=== PATIENT | male | born 1950 | race Caucasian/White ===

== ENCOUNTER 2020-09-01 15:12 | Emergency (ER) | payer MEDICARE, SELFPAY ==
--- NOTE | ~2020-09-01 | XR_ITS ---
EXAMINATION: XR wrist RT min 3V INDICATION: Right wrist pain, initial encounter TECHNIQUE: Four views of the right wrist are obtained. COMPARISON: None available FINDINGS: There is medial soft tissue swelling of the wrist. The bones are osteopenic which limits th e sensitivity for fracture however no acute fracture is seen. Tiny areas of heterotopic ossification near the first carpometacarpal joint likely reflect prior injury. Calcified atherosclerosis is noted. IMPRESSION: 1. No acute osseous abnormality, sensitivity limited by osteopenia. Reviewed, dictated and finalized at location A. SER
[2020-09-01 15:26] VITALS: BP 152/60; PULSE 86; RESP 20; TEMP 36.7; O2SAT 99
--- NOTE | 2020-09-01 15:36 | ED.UPPEXIN ---
HPI - Extremity Injury (Upper) General Chief Complaint: Extremity Injury, Upper Stated Complaint: L/knee & R/hand injury Source: patient and RN notes reviewed Limitations: no limitations History of Present Illness HPI narrative: The patient, who is right-handed, presents with right wrist pain that is mild, worse with motion, better at rest. He slipped and fell 1/2 a week ago and still has continued pain eric ulnar > radial aspect. No bleeding, deformity but there is definite edema; he also had a bruise to his left knee which is improved [he's on Eliquis]. Patient advised regardless of x-ray report, need for spica splinting -and he declines available splint here for durable waterproof OTC . Patient has been seen by ortho for past knee replacement, so also advised to see prior ortho or referral. Related Data Home Medications Medication Instructions Recorded Confirmed apixaban [Eliquis] 5 mg BID 09/01/20 09/01/20 atorvastatin 10 DAILY 09/01/20 doxazosin 8 mg 09/01/20 furosemide 20 09/01/20 lisinopril 20 mg 09/01/20 metoprolol tartrate 50 mg BID 09/01/20 09/01/20 tamsulosin 0.4 mg PO BID 09/01/20 09/01/20 Allergies Allergy/AdvReac Type Severity Reaction Status Date / Time No Known Allergies Allergy Verified 02/15/19 11:10 Review of Systems Review of Systems: Narrative: General/Constitutional: No weight loss,fever Eyes: N0: Redness,discharge Ears/Nose/Throat: No: Epistaxis,ear discharge Respiratory: Denies: Hemoptysis Gastrointestinal: No Vomiting, Bleeding-rectal Skin: No Lumps, eruption Neurologic: No Focal Weakness,Sz Hematologic: Denies: Petechiae/Purpura Psychiatric: No: Suicida ideationl All Other Systems: Reviewed and Negative PMFSH Social History Social History Gender identity (if verbalized by the patient): Male Comments At time of signature, agree with nursing past medical, surgical, social and family history. There is no relevant family history pertinent to the presenting complaint Exam Narrative: Exam Narrative: General Appearance: Obese/ Well nourished, Conjunctiva clear Ears: External ear normal, [place] / decreased hearing acuity Nose: Normal nose, Nares clear Mouth/Throat: Normal appearing, Normal lips, Supple Respiratory: Airway patent, No respiratory distress MS-wrist: Normal strength (mostly intact, limited flexion/extension by pain), Tenderness (radial styloid >> scaphoid with mild decreased ROM), Swelling diffusely, Other (no anterior drawer, no collateral laxity, snuffbox tender only on deep palpation Skin: Warm, Dry; resolving bruise of left knee with good strength and range of motion Neurological: A&O x3, , Normal affect Course Course Emergency Course: Films visualized, interpreted by radiologist, agree, normal see report Vital Signs Vital signs: Vital Signs Temperature 98.0 F 09/01/20 15:26 Pulse Rate 86 09/01/20 15:26 Respiratory Rate 20 09/01/20 15:26 Blood Pressure 152/60 H 09/01/20 15:26 Pulse Oximetry 99 09/01/20 15:26 Temperature 98.0 F 09/01/20 15:26 Pulse Rate 86 09/01/20 15:26 Respiratory Rate 20 09/01/20 15:26 Blood Pressure 152/60 H 09/01/20 15:26 Pulse Oximetry 99 09/01/20 15:26 Discharge Plan Discharge Clinical Impression: Injury of wrist, right Patient Disposition: Home, Self-Care Condition: Stable Instructions: Scaphoid Fracture (ED) Additional Instructions: Get and wear splint as discussed See prior knee orthopedist or referral Prescriptions: New acetaminophen-codeine 300-30 mg tablet 1 tablet PO HS PRN (Reason: pain) Qty: 10 RF: 1 acetaminophen-codeine 300-30 mg tablet 1 tablet PO HS PRN (Reason: pain) Qty: 10 RF: 0 No Action tamsulosin 0.4 mg capsule 0.4 mg PO BID RF: 0 Eliquis 5 mg tablet 5 mg BID RF: 0 atorvastatin 10 mg tablet 10 DAILY RF: 0 furosemide 20 mg tablet 20 RF: 0 lisinopril 20 mg tablet 20 mg RF: 0 metoprolol
== END 2020-09-01 16:02 | disposition home or self-care (01) ==
PROVIDERS: Emergency Provider Emergency Medicine; PCP Family Medicine Adolescent Medicine
DX: S69.91XA Unspecified injury of right wrist, hand and finger(s), initial encounter (principal); W19.XXXA Unspecified fall, initial encounter; I25.10 Atherosclerotic heart disease of native coronary artery without angina pectoris; E78.00 Pure hypercholesterolemia, unspecified; I10 Essential (primary) hypertension; N40.0 Benign prostatic hyperplasia without lower urinary tract symptoms; M19.90 Unspecified osteoarthritis, unspecified site; Z95.1 Presence of aortocoronary bypass graft
CPT/HCPCS: 73110; 99213; G0463

== ENCOUNTER 2020-09-07 13:00 | Inpatient (IN) | payer MEDICARE, SELFPAY ==
[2020-09-07] VITALS (13 sets, daily range): BP systolic 139–180; BP diastolic 44–99; PULSE 97–111; RESP 19–37; TEMP 36.7–37.3; O2SAT 95–99; BMI 37.5
--- NOTE | ~2020-09-07 | CT_ITS ---
EXAMINATION: CTA chest PE protocol DATE: 09/11/2020 16:22 INDICATION: Hypoxia. Tachypnea. TECHNIQUE: Computed tomography angiography (CTA) of the chest was performed with 100 mL Omnipaque-350 intravenous contrast timed to evaluate the pulmonary arteries. Coronal maximum intensity projection 3D-reconstructions were created by the technologist. Automated exposure control and iterative reconst ruction technique were employed. The dose-length product was 940.84 mGy-cm. COMPARISON: Chest 2 views 09/11/2020 FINDINGS: There are small pleural effusions. There is mild dependent atelectasis bilaterally. There i s smooth septal thickening in the lungs, consistent with mild pulmonary edema. Cardiomegaly is noted. There are coronary artery calcifications. There are changes of coronary artery bypass grafting. Ther e is no pulmonary embolus. There is mild thoracic spondylosis. IMPRESSION: 1. No pulmonary embolus. Sensitivity is moderately decreased by motion artifact. 2. Mild pulmonary edema. 3. Small pleural effusions. 4. Cardiomegaly. Reviewed, dictated and finalized at location A. OS LEAD IMPRESSION: 1. No pulmonary embolus. Sensitivity is moderately decreased by motion artifact . 2. Mild pulmonary edema. 3. Small pleural effusions. 4. Cardiomegaly.
--- NOTE | ~2020-09-07 | US_ITS ---
US renal BI 09/08/2020 11:10 Procedure: Realtime transabdominal ultrasound of the kidneys and bladder. Indication: Acute on chronic renal failure Comparison: Ultrasound dated 02/20/2019 Findings: Renal echotexture is normal bilaterally without hydronephrosis, contour deforming mass or r enal calculus. The right kidney measures 11.4 cm and left kidney measures 12 cm. There is a Tang cat heter in the bladder. Impression: 1: Unremarkable renal ultrasound. No stones, masses or hydronephrosis. Reviewed, dictated and finalized at location A. S BLOWING INSTRUCTOR Impression: 1: Unremarkable renal ultrasound. No stones, masses or hydronephrosis.
--- NOTE | ~2020-09-07 | XR_ITS ---
EXAMINATION: XR chest 2V DATE: 09/07/2020 14:21 INDICATION: Labored breathing. Tachycardia. Generalized weakness. TECHNIQUE: PA and lateral views of the chest were obtained. COMPARISON: Chest radiograph dated 02/16/2019 FINDINGS: Cardia megaly with pulmonary vascular congestion but without best pulmonary edema. No focal airspace opacities, pleural effusion or pneumothorax. Mild eventration along the right hemidiaphragm. Median sternotomy wires and mediastinal surgical clips are seen, likely from prior coronary artery bypass gr afting. Chronic mild anterior wedging of a couple lower thoracic vertebral bodies. IMPRESSION: 1. Cardiomegaly with pulmonary vascular congestion but without best pulmonary edema or other acute c ardiopulmonary disease. Reviewed, dictated and finalized at location A. ILITY CLAIMS EXAMINER IMPRESSION: 1. Cardiomegaly with pulmonary vascular congestion but without best pulmonary edema or other acute cardiopulmonary disease.
--- NOTE | ~2020-09-07 | XR_ITS ---
XR chest 1V portable 09/12/2020 01:33 Indication: Tachypnea Procedure: AP portable chest Comparison: Comparison to multiple prior studies sequentially, with oldest reviewed study dated 02/16. Findings: Status post median sternotomy for CABG. Cardiomegaly. Mild interstitial edema. No significa nt pleural effusion or pneumothorax. No acute osseous abnormality. Impression: 1: Cardiomegaly with mild interstitial edema. Reviewed, dictated and finalized at location A. POLISHER Impression: 1: Cardiomegaly with mild interstitial edema.
--- NOTE | ~2020-09-07 | US_ITS ---
EXAMINATION: US venous doppler [facility] EXAM DATE: 09/11/2020 15:56 INDICATION: Bilateral calf pain. TECHNIQUE: Multiple grayscale, color flow and Doppler images of the lower extremity deep venous syste ms bilaterally were obtained and reviewed. Comparison is made to prior examination from 02/15/2019. FINDINGS: Right side: The right common femoral, femoral and profunda veins demonstrate normal color flow, respi ratory variation, augmentation and compressibility. Compressibility, color flow confirmed within the right popliteal, posterior tibial, peroneal, and greater saphenous veins. Left side: The left common femoral, femoral and profunda veins demonstrate normal color flow, respira tory variation, augmentation and compressibility. Compressibility, color flow confirmed within the l eft popliteal, posterior tibial, peroneal, and greater saphenous veins. IMPRESSION: 1. No lower extremity deep venous thrombosis bilaterally. Reviewed, dictated and finalized at location A. OF SALES AND MARKETING
--- NOTE | ~2020-09-07 | XR_ITS ---
EXAMINATION: XR wrist RT min 3V DATE: 09/07/2020 14:21 INDICATION: Posterior medial right wrist pain post fall TECHNIQUE: Posteroanterior, ulnar deviation, oblique, and lateral views of the right wrist were obtai drew. COMPARISON: 09/01/2020 FINDINGS: Diffuse osteopenia. Alignment remains normal. No fractures. 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 Mild ch ondrocalcinosis at the triangular fibrocartilage complex. Diffuse soft tissue swelling in the hand an d along the forearm, the latter with ulnar side predominance. Vascular ossifications along the radial and ulnar arteries. Tiny radiopaque foreign body along the dorsal/radial aspect of the second proxim al phalanx. IMPRESSION: 1. No acute osseous abnormality. 2. Tiny age indeterminate foreign body in the soft tissues at the dorsal/radial aspect of the right s econd proximal phalanx. Correlate with clinical history and physical exam. Reviewed, dictated and finalized at location A. GANG SUPERVISOR IMPRESSION: 1. No acute osseous abnormality. 2. Tiny age indeterminate foreign body in the soft tissues at the dorsal/radial aspect of the right second proximal phalanx. Correlate with clinical history a nd physical exam.
--- NOTE | ~2020-09-07 | XR_ITS ---
EXAMINATION: XR chest 2V DATE: 09/11/2020 10:53 INDICATION: Hypoxia. Right rib pain. TECHNIQUE: Frontal and lateral views of the chest were obtained. COMPARISON: Chest 2 views 09/09/2020 FINDINGS: There is a diffuse interstitial pattern, consistent with mild pulmonary edema. No pleural e ffusion or pneumothorax. Cardiomegaly is noted. Median sternotomy wires and mediastinal surgical clip s are seen, likely from prior coronary artery bypass grafting. There are retained epicardial pacer wi res. IMPRESSION: 1. Mild pulmonary edema. 2. Cardiomegaly. Reviewed, dictated and finalized at location A. RUCTIONAL TECHNOLOGY FACILITATOR
--- NOTE | ~2020-09-07 | XR_ITS ---
EXAMINATION: XR hand RT min 3V DATE: 09/13/2020 16:22 INDICATION: Right hand joint swelling. TECHNIQUE: 3 views of right hand were obtained. COMPARISON: Right wrist radiographs 09/07/2020 FINDINGS: Bone alignment is normal. No fracture. There are erosions of ulnar styloid. There is mild o steoarthritis of triscaphe joint and moderate osteoarthritis of first carpal metacarpal joint. There is mild osteoarthritis of many of the metacarpophalangeal joints and interphalangeal joints. There is an erosion at ulnar aspect of neck of third proximal phalanx. There is soft tissue swelling of the h ands. There is a 1 mm radiopaque foreign body in second digit. IMPRESSION: 1. Erosions at ulnar styloid and neck of third proximal phalanx, most likely gout. 2. Polyarticular osteoarthritis. 3. 1 mm radiopaque foreign body in second digit. Reviewed, dictated and finalized at location A. E CUTTING PRESS OPERATOR IMPRESSION: 1. Erosions at ulnar styloid and neck of third proximal phalanx, most likely go ut. 2. Polyarticular osteoarthritis. 3. 1 mm radiopaque foreign body in second digit.
--- NOTE | ~2020-09-07 | US_ITS ---
US scrotum doppler INDICATION: Discolored scrotum. TECHNIQUE: Testicular sonogram utilizing grayscale and color Doppler FINDINGS: The testes are normal in size and appearance. No focal lesions are seen. The right testes measures 2.8 x 2.8 x 2.3 cm centimeters, and the left testis measures 3 x 2.7 x 1.5 cm cm. There is n ormal vascular flow to both testes. There is scrotal wall edema. There is a left varicocele. There is a small right hydrocele. The right and left epididymides appear normal. IMPRESSION: 1. Scrotal wall edema, nonspecific. 2: Right hydrocele. 3: Left varicocele. Reviewed, dictated and finalized at location A. AND SOIL TECHNICIAN
--- NOTE | ~2020-09-07 | US_ITS ---
EXAMINATION: US knee asp inj w image RT DATE: 09/14/2020 15:53 INDICATION: Right knee inflammatory arthritis. TECHNIQUE: The procedure including the risks, benefits, and alternatives was discussed with the patie nt. Risks discussed included bleeding and infection. The patient understood the risks and agreed to p roceed. The skin overlying the right knee was prepped and draped in usual sterile fashion. Anestheti c was administered with 1% lidocaine subcutaneously. An 18 gauge spinal needle was then inserted int o the right knee joint with sonographic guidance. Fluid was aspirated. The entry site was cleaned and dressed. There were no immediate complications. FINDINGS: Ultrasound images demonstrate a right knee joint effusion. IMPRESSION: 1. Ultrasound-guided needle aspiration of the right knee joint yielding 45 mL ronel-colored fluid. Reviewed, dictated and finalized at location A. CIATE DRAFTER IMPRESSION: 1. Ultrasound-guided needle aspiration of the right knee joint yielding 45 mL a mber-colored fluid.
--- NOTE | ~2020-09-07 | XR_ITS ---
EXAMINATION: XR hand LT min 3V DATE: 09/13/2020 16:22 INDICATION: Left hand joint swelling. TECHNIQUE: 3 views of left hand were obtained. COMPARISON: Left hand fourth digit radiographs 03/09/2016 FINDINGS: Bone alignment is normal. No fracture. There is moderate osteoarthritis of first carpometac arpal joint and some of the metacarpophalangeal joints and interphalangeal joints. There are juxtaart icular erosions at second distal interphalangeal joint and fourth and fifth proximal interphalangeal joints with soft tissue swelling. IMPRESSION: 1. Juxta-articular erosions at second distal interphalangeal joint and fourth and fifth proximal inte rphalangeal joints with soft tissue swelling, consistent with inflammatory arthropathy, most likely g out. 2. Polyarticular osteoarthritis. Reviewed, dictated and finalized at location A. STIC HELPER IMPRESSION: 1. Juxta-articular erosions at second distal interphalangeal joint and fourth a nd fifth proximal interphalangeal joints with soft tissue swelling, consistent with inflammatory arthropathy, most likely gout. 2. Polyarticular osteoarthritis.
--- NOTE | ~2020-09-07 | US_ITS ---
EXAMINATION: US wrist asp inj w image RT DATE: 09/14/2020 15:53 INDICATION: Right wrist inflammatory arthritis. TECHNIQUE: The procedure including the risks, benefits, and alternatives was discussed with the patie nt. Risks discussed included bleeding and infection. The patient understood the risks and agreed to p roceed. The skin overlying the right radioscaphoid joint was prepped and draped in usual sterile fash ion. Anesthetic was administered with 1% lidocaine subcutaneously. An 18 gauge spinal needle was th en inserted into the radioscaphoid joint under continuous sonographic guidance. Fluid was aspirated. The entry site was cleaned and dressed. There were no immediate complications. FINDINGS: Ultrasound images demonstrate the needle in the right radioscaphoid joint. IMPRESSION: 1. Ultrasound-guided right radioscaphoid joint aspiration yielding less than 1 mL ronel-colored fluid mixed with blood. Reviewed, dictated and finalized at location A. LABORER
--- NOTE | ~2020-09-07 | XR_ITS ---
XR chest 2V 09/09/2020 08:38 Indication: Shortness of breath Procedure: AP and lateral views of the chest Comparison: Comparison to multiple prior studies sequentially, with oldest reviewed study dated 09/2011. Findings: Cardiomegaly. Status post median sternotomy for CABG. There is asymmetric airspace disease left mid and lower lung zone. No pleural effusion. No pneumothorax. No acute osseous abnormality. Impression: 1: Asymmetric left airspace disease mid and lower lung zone, atelectasis versus pneumonia. 2: Cardiomegaly. Reviewed, dictated and finalized at location A. CACY DIRECTOR Impression: 1: Asymmetric left airspace disease mid and lower lung zone, atelectasis versus pneumonia. 2: Cardiomegaly.
--- NOTE | ~2020-09-07 | US_ITS ---
EXAMINATION: US abscess cyst aspiration DATE: 09/14/2020 15:53 INDICATION: Left hand inflammatory arthritis. TECHNIQUE: The procedure including the risks, benefits, and alternatives was discussed with the patie nt. Risks discussed included bleeding and infection. The patient understood the risks and agreed to p rocjohn. The skin overlying the right hand was prepped and draped in usual sterile fashion. Anestheti c was administered with 1% lidocaine subcutaneously. An 18 spinal needle was inserted into the left fifth proximal interphalangeal joint under continuous sonographic guidance. No fluid could be aspirat ed. The entry site was cleaned and dressed. There were no immediate complications. FINDINGS: Ultrasound images demonstrate soft tissue swelling around the fourth and fifth proximal int erphalangeal joints without visible fluid. Needle aspiration of the fifth proximal interphalangeal tom int yielded no fluid. IMPRESSION: 1. Ultrasound-guided needle aspiration of the left fifth proximal interphalangeal joint yielding no f luid. Reviewed, dictated and finalized at location A. Y MASTER IMPRESSION: 1. Ultrasound-guided needle aspiration of the left fifth proximal interphalange al joint yielding no fluid.
--- NOTE | ~2020-09-07 | CT_ITS ---
EXAMINATION: CT abdomen pelvis wo con DATE: 09/13/2020 15:52 INDICATION: Diarrhea. TECHNIQUE: Computed tomography (CT) of the abdomen and pelvis was performed without intravenous contr ast. Automated exposure control and iterative reconstruction technique were employed. The dose-length product was 1695.77 mGy-cm. COMPARISON: Chest CT 09/11/2020 FINDINGS: The visualized portions of the lung bases demonstrate small pleural effusions and dependent atelectasis. There are parenchymal calcifications in right lower lobe. Cardiomegaly is noted. There are coronary artery calcifications. No pericardial effusion. There are changes of coronary artery byp ass grafting. The liver, gallbladder, pancreas, adrenal glands, and kidneys are normal. There is no u rolithiasis. There is splenomegaly measuring 21.4 cm. There are no dilated loops of bowel. The append ix is not visualized. There is a recurrent right inguinal hernia containing fat. There is mild bilate ral external iliac lymphadenopathy. The prostate is moderately enlarged. There is trace perisplenic a scites. There is mild thoracolumbar spondylosis. IMPRESSION: 1. Small pleural effusions. 2. Splenomegaly. 3. Recurrent right inguinal hernia containing fat. 4. Mild bilateral external iliac lymphadenopathy. Reviewed, dictated and finalized at location A. OGICAL E LOGGER
--- NOTE | ~2020-09-07 | XR_ITS ---
EXAMINATION: XR elbow RT min 3V DATE: 09/07/2020 14:21 INDICATION: Pain, erythema and swelling at the right elbow post fall TECHNIQUE: Anteroposterior, two oblique and lateral views of the right elbow were obtained. COMPARISON: None. FINDINGS: Alignment is normal. No fracture. Mild osteoarthritis at the right elbow with no joint effusion. Foca l soft tissue tissue swelling with increased density posterior to the elbow and proximal forearm sugg esting a hematoma. Peripheral IV at the antecubital fossa. IMPRESSION: 1. No right elbow joint effusion or acute osseous abnormality. Reviewed, dictated and finalized at location A. STIGATIONS CHIEF
--- NOTE | ~2020-09-07 | CT_ITS ---
EXAMINATION: CT brain wo con INDICATION: Head injury COMPARISON: None TECHNIQUE: Standard unenhanced head CT. The dose-length product (DLP) was 605.33 mGy-cm. The mA was a djusted according to patient size. Iterative reconstruction technique was employed. FINDINGS: There is no acute intraparenchymal hemorrhage. No evidence of mass lesion. No evidence of a cute infarction. There is mild periventricular and subcortical hypodensity probably related to small vessel ischemic disease. There is mild prominence of the sulci and ventricles related to cerebral atr ophy. Intracranial calcified cerebral atherosclerosis is noted. There are no extra-axial collections. There is no mass effect or midline shift. Changes in the globes are likely from ocular lens surgery. There is mild mucosal thickening of the paranasal sinuses. IMPRESSION: 1. No acute intracranial abnormality. 2. Age related findings. Reviewed, dictated and finalized at location A. LOGY SOCIAL WORK
--- NOTE | 2020-09-07 13:09 | PC.NURSE ---
Patient arrives awake, alert, and oriented. He has a small brace on his right hand and wrist with complaints of pain to this area following a fall reported 4 weeks ago. There is swelling with pitting edema noted to the right wrist along with reports of pain. There is deformity and pain reported to this right elbow as well. Patient denies loss of feeling distal to this area and is able to move his fingers but reports pain with movement. Strong radial pulse and warm, dry skin noted to the right hand. He is noted to have urine and feces in groin and bottom area as well as on both legs. There is dirt and and feces caked on to his feet and noted underneath his toenails. Multiple ulcerations noted to both buttocks as well as thigh folds with large area of redness noted as if patient had been sitting on a toilet seat for a long time. He also has extensive edema noted to the scrotum with reddened skin as well. When asked, the patient does tell me that he was sitting on a toilet seat. He is unable to articulate how long he was on the seat but states it was probably a couple of hours, It was like I just couldn't get up. When asked how many days ago this incident occurred he states possibly three days ago . There are multiple bruises noted to both thighs and knees with scabbed abrasion noted to the right knee. He also has swelling to both lower legs with pitting edema noted bilaterally from distal calf throughout feet. Patient was provided with a bed bath, given fresh linen and warm blankets at this time. Other than difficulty walking with weakness and pain to the right elbow and wrist, he denies further complaints.
[2020-09-07 14:11] LABS: Basophils Percent Auto 0.1 % (0.2-1.2); Hematocrit 34.6 % (42.0-52.0); Hemoglobin 10.3 g/dL (14.0-18.0); Immature Granulocyte Absolute 0.14 K/mm3 (0.00-0.031); Lymphocytes Absolute Auto 0.54 K/mm3 (0.9-3.2); Lymphocytes Percent Auto 3.7 % (18.3-44.2); Mean Corpuscular HGB Conc 29.8 g/dl (32-36); Mean Corpuscular Hemoglobin 22.2 pg (26-34); Mean Corpuscular Volume 74.6 fl (80-100); Monocytes Absolute Auto 1.3 K/mm3 (0.1-0.6); Monocytes Percent Auto 8.6 % (2.6-8.5); Neutrophils Absolute Auto 12.7 K/mm3 (1.3-6.7); Neutrophils Percent Auto 86.6 % (45.5-73.1); Platelet Count Result 306 k/mm3 (150-375); Red Blood Count 4.64 M/mm3 (4.6-6.20); White Blood Count 14.7 K/mm3 (4.5-10.0)
[2020-09-07 14:22] LABS: Alanine Aminotransferase 31 U/L (4-50); Albumin Level 3.9 g/dL (3.5-5.1); Alkaline Phosphatase 89 U/L (38-126); Anion Gap 14 mmol/L (8-16); Aspartate Amino Transferase 92 U/L (17-59); Bilirubin,Total 0.8 mg/dL (0.2-1.3); Blood Urea Nitrogen 44 mg/dL (9-20); Calcium 9.3 mg/dL (8.4-10.2); Carbon Dioxide 20 mmol/L (22-30); Chloride 103 mmol/L (98-107); Estimated CRCL calculation 40 ml/min; Estimated Glomerular Filt Rate 33; Glucose 135 mg/dL (75-110); Sodium 137 mmol/L (137-145)
[2020-09-07 14:24] LABS: Add Urine Microscopic? YES; Appearance Urine Turbid (Clear); Bacteria Urine 2+ /hpf; Bilirubin Urine Negative (Negative); Blood Urine 3+ (Negative); Color Urine Yellow (Yellow); Glucose Urine UA Negative (Negative); Ketones Urine Negative (Negative); Leukocyte Esterase Ur 3+ LEU/UL (Negative); Mucus Urine Rare /lpf; Nitrate Urine Negative (Negative); Protein Urine 2+ mg/dL (Negative); RBC Urine >75 /hpf (0-2); Specific Grav Ur 1.018 (1.001-1.035); Squamous Epithelial Cell Urine Few /hpf (Few); Transitional Epi Cells Urine Rare /hpf (None Seen); Urobilinogen Urine Negative mg/dL (<2.0); WBC Clumps Urine Present /HPF; WBC Urine >75 /hpf
[2020-09-07] MEDS: SODIUM CHLORIDE 0.9% IV 1,000 ML 999 ML IV CONT (15:38)
[2020-09-07 16:01] LABS: Creatine Kinase 4629 U/L (55-170)
--- NOTE | 2020-09-07 16:10 | WPDURCON ---
Assessment and Plan Additional Plan Scrotal swelling - no evidence of scrotal infection at this time - perineal induration appears related to the same process as the buttocks lacerations - Will sign out to my colleagues to check again tomorrow. Urology Consult Note HPI Date Seen: 09/07/20 Primary Care Provider: Leon Taylor MD Consult Narrative Narrative: Justus Rodriguez is a 70 year old male who I was asked to look at his scrotum by Dr. Ramirez for a concern of scrotal swelling. The patient states he came to the ER because her has pressure sores on the buttocks. He was apparently stuck on a seat for over 4 hours. He reports not current issues voiding. Review of Systems Review of Systems: All systems reviewed & are unremarkable except as noted in HPI and below PMFSH Social History Social History Gender identity (if verbalized by the patient): Male Meds Home Medications and Allergies Home Medications Medication Instructions Recorded Confirmed Type acetaminophen-codeine 1 tablet PO HS PRN #10 tablet 09/01/20 Rx apixaban [Eliquis] 5 mg BID 09/01/20 09/01/20 History atorvastatin 10 DAILY 09/01/20 History doxazosin 8 mg 09/01/20 History furosemide 20 09/01/20 History lisinopril 20 mg 09/01/20 History metoprolol tartrate 50 mg BID 09/01/20 09/01/20 History tamsulosin 0.4 mg PO BID 09/01/20 09/01/20 History oxybutynin chloride 09/07/20 History Allergies Allergy/AdvReac Type Severity Reaction Status Date / Time No Known Allergies Allergy Verified 09/07/20 15:51 Vital Signs Vital Signs - 24 hr 09/07/20 12:54 09/07/20 13:31 09/07/20 14:30 Temperature 36.7 C 36.8 C Pulse Rate 111 H 109 H 103 H Respiratory Rate 34 H 37 H 37 H Blood Pressure 144/84 H 158/91 H 158/76 H Pulse Oximetry 98 96 99 09/07/20 15:35 Temperature 36.7 C Pulse Rate 111 H Respiratory Rate 19 Blood Pressure 177/79 H Pulse Oximetry 97 Exam Const: General: cooperative and comfortable; No healthy appearing HENMT: Head: normal to inspection Ears: hearing grossly abnormal bilaterally : Male General Exam: Yes lacerations (small loss of skin over the urethra in the perineal area) and No perineal induration Meatus: meatus normal Scrotum: edematous Testes: Testes normal Psych: Appearance: grossly normal Affect: normal affect Results Labs CBC & Chem 7: 09/07/20 13:59 09/07/20 13:59 Labs: Short CBC 09/07/20 Range/Units 13:59 WBC 14.7 H (4.5-10.0) K/mm3 Hgb 10.3 L (14.0-18.0) g/dL Hct 34.6 L (42.0-52.0) % Plt Count 306 (150-375) k/mm3 BMP 09/07/20 13:59 Sodium 137 Potassium 4.0 Chloride 103 Carbon Dioxide 20 L BUN 44 H Creatinine 2.00 H Glucose 135 H Calcium 9.3 Cardiac Enzymes 09/07/20 Range/Units 13:59 Total Creatine Kinase 4629 H (55-170) U/L Liver Function 09/07/20 Range/Units 13:59 Total Bilirubin 0.8 (0.2-1.3) mg/dL AST 92 H (17-59) U/L ALT 31 (4-50) U/L Alkaline Phosphatase 89 (38-126) U/L Albumin 3.9 (3.5-5.1) g/dL Urine 09/07/20 Range/Units 13:50 Urine Color Yellow (Yellow) Urine Appearance Turbid H (Clear) Urine pH 5.0 (5.0-9.0) Ur Specific [place] 1.018 (1.001-1.035) Urine Protein 2+ H (Negative) mg/dL Urine Glucose (UA) Negative (Negative) mg/dL
--- NOTE | 2020-09-07 16:38 | ED.GENADULT ---
HPI - General Adult General Chief complaint: Fall Stated complaint: FALL Time Seen by Provider: 09/07/20 14:30 Source: patient and EMS Mode of arrival: EMS Limitations: no limitations History of Present Illness HPI narrative: 70 years old white female presents with multiple falls. Patient lives alone, reports multiple falls over the last 4 weeks last one was this morning. Patient denies any fever, chills, nausea, vomiting, abdominal pain, shortness of breath, headache or neck pain. Patient complaining of right upper extremity pain after fall.. Related Data Home Medications Medication Instructions Recorded Confirmed apixaban [Eliquis] 5 mg BID 09/01/20 09/01/20 atorvastatin 10 DAILY 09/01/20 doxazosin 8 mg 09/01/20 furosemide 20 09/01/20 lisinopril 20 mg 09/01/20 metoprolol tartrate 50 mg BID 09/01/20 09/01/20 tamsulosin 0.4 mg PO BID 09/01/20 09/01/20 oxybutynin chloride 09/07/20 Allergies Allergy/AdvReac Type Severity Reaction Status Date / Time No Known Allergies Allergy Verified 09/07/20 15:51 Review of Systems Review of Systems: Narrative: CONSTITUTIONAL: Denies fever, chills, or sweats. EYES: Denies visual changes, redness, or discharge. ENT: Denies rhinorrhea, congestion, sore throat, or otalgia. CARDIOVASCULAR: Denies chest pain, palpitations, or edema. RESPIRATORY: Denies cough or dyspnea. GASTROINTESTINAL: Denies abdominal pain, nausea, vomiting, or diarrhea. GENITOURINARY: Denies dysuria or hematuria. SKIN: Denies rash or itching. MUSCULOSKELETAL: Back pain, joint pain and myalgia NEUROLOGIC: Denies headache, numbness,. Patient also complaining of general weakness PSYCHIATRIC: Depression PMFSH Social History Social History Gender identity (if verbalized by the patient): Male Exam Narrative: Exam Narrative: General appearance: Well-developed, well-nourished Skin: Normal color, candidal intertrigo at the scrotum, edematous scrotum Head: Normocephalic, nontraumatic Eyes: Clear conjunctiva ENT: Oropharynx normal, ears normal, nose normal Neck: Supple, nontender Chest and respiratory: Airway patent, no respiratory distress, no accessory muscle use Heart: Regular rate/rhythm Abdomen: Soft, nontender, no organomegaly, quiet bowel sounds Vascular: Normal peripheral pulses, normal capillary refill. Musculoskeletal: Limited range of motion because of general weakness Neurologic: Alert and oriented ?3, BUNCHER MACHINE is normal as tested, no gross motor deficit Course Course Emergency Course: Stable Consultations Consultation #1: DR MARLOW. Patient probably have a pressure ulcer at the back of his scrotum. CT abdomen of the pelvis would be appropriate make sure nothing abnormal internally. Patient creatinine is 2.0, CT scan of the pelvis with IV contrast cannot be done at this time. Date: 09/07/20 Time: 16:40 Vital Signs Vital signs: Vital Signs Temperature 36.7 C 09/07/20 12:54 Pulse Rate 111 H 09/07/20 12:54 Respiratory Rate 34 H 09/07/20 12:54 Blood Pressure 144/84 H 09/07/20 12:54 Pulse Oximetry 98 09/07/20 12:54 Temperature 36.7 C 09/07/20 15:35 Pulse Rate 111 H 09/07/20 15:35 Respiratory Rate 19 09/07/20 15:35 Blood Pressure 177/79 H 09/07/20 15:35 Pulse Oximetry 97 09/07/20 15:35 Medical Decision Making [facility] Narrative Medical decision making narrative: Patient presents with multiple falls, lives alone, poor hygiene. Labs, CPK, chest x-ray, UA, CT head, IV
[2020-09-07 16:39] LABS: Lactic Acid Reflex 1.2 mmol/L (0.7-2.1)
[2020-09-07] MEDS: ONDANSETRON INJ 4 MG/2 ML VIAL IV PUSH (19:33)
[2020-09-07] MEDS: MORPHINE SULFATE (*CRX) 4 MG/ML INJ IV PUSH (19:33)
--- NOTE | 2020-09-07 20:25 | PM.IMHP ---
H&P: HPI History of Present Illness Date/Time: 09/07/20 20:25 Chief Complaint: Fall Narrative: Justus Rodriguez is a 70 year old male who presented to the emergency room due to frequent falls. The patient has had over 4 falls this last week. The last time was this morning. The patient stated that he went to answer the door and fell on the floor. To [facility] [place] [facility]2020 where he hurt his left knee and right hand. The patient was encouraged to use spica splint to his right hand. He was advised to follow-up with his orthopedic physician for his left knee pain since he has had a past knee replacement. The patient is on Eliquis for atrial fibrillation. Patient's right hand continues to be red and swollen. Patient's scrotum is edematous and purplish on the underside of the scrotum. Urology had been consulted and reviewed the patient. Unable to do a CT of the lower abdomen and pelvis due to his acute renal failure. Baseline anywhere from 1.2 up to 2 today. His last creatinine in March was 1.6. His white count was noted to be 14.7. H&H is 10.3 and 34.6. Lactic was normal. Total creatinine kinase 4629. Patient was started on IV fluids. Initially he was found have a UTI and was started on ceftriaxone. He was then placed on Zosyn and Vanco since there was an area on his scrotum that was a questionable source of infection. Patient was given Zofran and morphine in the emergency room. The patient was being admitted to inpatient status on the date of service 09/07/2020 Review of Systems Review of Systems: All systems reviewed & are unremarkable except as noted in HPI and below Constitutional: Constitutional: Reports as per HPI and Reports no additional constitutional complaints Eyes: Eyes: Reports as per HPI and Reports no additional eye complaints ENT: Reports system reviewed and no additional complaints, except as documented and Reports Normal hearing present Cardiovascular: Cardiovascular: Reports no additional cardiovascular complaints Respiratory: Respiratory: Reports no additional respiratory complaints and Reports no additional respiratory complaints Gastrointestinal: Gastrointestinal: Reports as per HPI and Reports no additional gastrointestinal complaints Musculoskeletal: Musculoskeletal: Reports no additional musculoskeletal complaints Integumentary/Breasts: Skin/Breast: Reports system reviewed and no additional complaints, except as docu and Reports as per HPI Neurologic: Reports system reviewed and no additional complaints, except as documented, Reports as per HPI and Reports Normal hearing present Psychiatric: Psychiatric: Reports no additional psychiatric complaints and Reports as per HPI Endocrine: Endocrine: Reports no additional endocrine complaints Hematologic/Lymphatic: Hematologic/Lymphatic: Reports no additional hematologic/lymphatic complaints Allergic/Immunologic: Allergic/Immunologic: Reports no additional allergic/immunologic complaints [facility] Past Medical History Medical History (Updated 09/07/20 @ 21:14 by Madai Roberson NP) Atrial fibrillation Treated with ablation currently on anticoagulation. BPH (benign prostatic hyperplasia) Chronic anemia Hyperlipidemia Hypertension Surgical History Surgical History (Updated 09/07/20 @ 20:33 by Madai Roberson NP) H/O heart bypass surgery 3 way bypass H/O hernia repair Right lower abdomen with mesh History of cardiac radiofrequency ablation History of knee replacement Family History Family History (Updated 09/07/20 @ 20:35 by Madai Roberson NP) Sibling Atrial fibrillation Father Heart disease Mother Congestive heart failure Social History Social History (Updated 09/07/20 @ 20:38 by Madai Roberson NP) Social History: The patient never or had any children. 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 He does not have a durable power criminal attorney for healthcare. He desires to be a full code.
[2020-09-07] MEDS: SODIUM CHLORIDE 0.9% IV 1,000 ML 100 ML IV CONT (21:20)
[2020-09-08] VITALS (14 sets, daily range): BP systolic 144–164; BP diastolic 52–80; PULSE 72–108; RESP 16–46; TEMP 36.8–38.1; O2SAT 91–99; BMI 11.0; BMI 37.5
[2020-09-08] MEDS: LIDOCAINE HCL 2% GEL UROJET 10 ML PKG MUCOUS MEM (00:48)
[2020-09-08 05:50] LABS: Basophils Percent Auto 0.2 % (0.2-1.2); Eosinophils Percent Auto 0.1 % (0-4.4); Hematocrit 31.3 % (42.0-52.0); Hemoglobin 9.5 g/dL (14.0-18.0); Immature Granulocyte Absolute 0.09 K/mm3 (0.00-0.031); Immature Granulocyte Percent A 0.7 % (0-0.5); Lymphocytes Absolute Auto 1.04 K/mm3 (0.9-3.2); Mean Corpuscular HGB Conc 30.4 g/dl (32-36); Mean Corpuscular Hemoglobin 23.2 pg (26-34); Mean Corpuscular Volume 76.5 fl (80-100); Mean Platelet Volume 10.7 fl (7.4-10.4); Monocytes Absolute Auto 1.3 K/mm3 (0.1-0.6); Monocytes Percent Auto 10.3 % (2.6-8.5); Neutrophils Absolute Auto 10.5 K/mm3 (1.3-6.7); Neutrophils Percent Auto 80.7 % (45.5-73.1); Platelet Count Result 277 k/mm3 (150-375); Red Blood Count 4.09 M/mm3 (4.6-6.20); Red Cell Distribution Width 16.1 % (11.5-14.5)
[2020-09-08 06:14] LABS: Creatine Kinase 2413 U/L (55-170)
[2020-09-08 06:16] LABS: Anion Gap 10 mmol/L (8-16); Blood Urea Nitrogen 43 mg/dL (9-20); Calcium 8.7 mg/dL (8.4-10.2); Carbon Dioxide 21 mmol/L (22-30); Chloride 105 mmol/L (98-107); Estimated CRCL calculation 44 ml/min; Estimated Glomerular Filt Rate 37; Glucose 112 mg/dL (75-110); Sodium 136 mmol/L (137-145)
--- NOTE | 2020-09-08 07:38 | WPDUROPN2 ---
Progress Note: A&P Assessment and Plan (1) Pressure ulcer: Qualifiers: Pressure injury location: unspecified location Pressure injury stage: stage 1 Qualified Code(s): L89.91 - Pressure ulcer of unspecified site, stage 1 Code(s): L89.90 - Pressure ulcer of unspecified site, unspecified stage Status: Acute (2) Scrotal ulcer: Code(s): N50.89 - Other specified disorders of the male genital organs Status: Acute Additional Plan This looks to be a pressure ulcer. I do not see any signs of infection. Local wound care. Subjective Subjective Date/Time Seen: 09/08/20 07:38 Patient seen and examined. Exam of his perineum. There is no signs of any infection. There is definitely some bruising in the area. This appears to be a pressure sore due to prolonged times toilet seat. Exam Const: General: cooperative and comfortable Nutritional Appearance: obese Eyes: General: appearance normal, both eyes and all related structures Resp: Effort & Inspection: normal respiratory effort and able to speak in complete sentences : Male General Exam: Yes edema (Scrotal edema noted) and No erythema Penis: Yes other (Hidden penis) Scrotum: ecchymosis (In the perineal area. There is no sign of any infection.), edematous and scrotal swelling Skin: General skin exam: normal color Objective Data Vital Signs Vital Signs: Vital Signs - 24 hr 09/07/20 12:54 09/07/20 13:00 09/07/20 13:31 Temperature 98.0 F Pulse Rate 111 H 109 H Respiratory Rate 34 H 35 H 37 H Blood Pressure 144/84 H 158/91 H Pulse Oximetry 98 99 96 09/07/20 14:30 09/07/20 15:35 09/07/20 17:00 Temperature 98.3 F 98.1 F 98.9 F Pulse Rate 103 H 111 H 103 H Respiratory Rate 37 H 19 31 H Blood Pressure 158/76 H 177/79 H 171/99 H Pulse Oximetry 99 97 97 09/07/20 18:03 09/07/20 18:45 09/07/20 19:01 Temperature 99.1 F 98.9 F Pulse Rate 105 H 107 H 104 H Respiratory Rate 31 H 29 H 35 H Blood Pressure 139/50 L 143/44 H 180/56 H Pulse Oximetry 95 96 96 09/07/20 20:10 09/07/20 21:27 09/07/20 22:00 Temperature 98.9 F 98.2 F 98.2 F Pulse Rate 101 H 99 97 Respiratory Rate 24 H 32 H 20 Blood Pressure 159/60 H 150/44 H 151/57 H Pulse Oximetry 96 98 97 09/07/20 23:52 09/08/20 02:00 09/08/20 06:00 Temperature 98.2 F 98.5 F Pulse Rate 97 98 100 Respiratory Rate 20 16 20 Blood Pressure 151/57 H 164/61 H 161/61 H Pulse Oximetry 97 99 98 Intake/Output Intake/Output: Intake & Output 09/05/20 09/06/20 09/07/20 09/08/20 23:59 23:59 23:59 23:59 Intake Total 1600 200 Output Total 20 875 Balance 1580 -675 Meds/Results Medications: Active Medications Generic Name Dose Route Start Last Admin Trade Name Freq PRN Reason Stop Dose Admin Acetaminophen 650 mg 09/08/20 07:14 Acetaminophen 325 Mg Tablet PO Q6H PRN Mild Pain (1-3) or Fever Apixaban 5 mg 09/08/20 09:00 Apixaban 5 Mg Tablet PO BID [facility] Atorvastatin Calcium 10 mg 09/08/20 09:00 Atorvastatin 10 Mg Tablet PO DAILY [facility] Doxazosin Mesylate 8 mg 09/08/20 09:00 Doxazosin Mesylate 4 Mg Tablet PO Q12HR [facility] Hydralazine HCl 10 mg 09/07/20 20:57 Hydralazine Hcl 20 Mg/Ml Vial IV PUSH Q8H PRN Blood Pressure - High Sodium Chloride 1,000 mls @ 100 mls/hr 09/07/20 17:00 09/07/20 21:20 Normal Saline Iv IV CONT 100 mls/hr .Q10H [facility] Administration Ceftriaxone Sodium/Dextrose 1 gm in 50 mls @ 100 mls/hr 09/08/20 15:00 Rocephin 1 Gm/D5w 50 Ml IVPB Q24H [facility] Metoprolol Tartrate 50 mg 09/08/20 09:00 Metoprolol Tartrate 50 Mg Tab PO Q12HR [facility] Miconazole Nitrate 1 applic 09/07/20 21:00 09/08/20 00:45 Miconazole 2% Antifungal Ointment 56 Gm TOPICAL 1 applic Q12HR [facility] Administration Ondansetron HCl 4 mg 09/07/20 16:57 Ondansetron Inj 4 Mg/2 Ml Vial IV PUSH Q4H PRN Nausea Oxybutynin Chloride 5 mg 09/08/20 09:00 Oxybutynin Chloride 5 Mg T
--- NOTE | 2020-09-08 08:00 | ADMGEN ---
This patient, Justus Rodriguze, was admitted to Medical Room 245-01. Patient/family oriented to hospital policies and general routines including ID bracelet, bed and alarms, visiting hours, pain management, procedures, bathroom and other care routines, personal items, smoking policy, room service/diet, and visiting hours. Information on how to activate the Rapid Response Team has been discussed. Patient/Family are encouraged to report perceived risks to care and to ask questions if they do not understand what they are told or what they should do. Patient admission 214909/07/2020
[2020-09-08] MEDS: SODIUM CHLORIDE 0.9% IV 1,000 ML 100 ML IV CONT ×2 (08:22→20:13)
--- NOTE | 2020-09-08 08:22 | PCOTNOTE ---
Attempted OT evaluation, per RN hold therapy for morning. Will attempt at later time.
[2020-09-08] MEDS: METOPROLOL TARTRATE 50 MG TAB PO ×2 (08:24→21:41)
[2020-09-08] MEDS: TAMSULOSIN HCL 0.4 MG CAPSULE PO ×2 (08:25→21:41)
[2020-09-08] MEDS: APIXABAN 5 MG TABLET PO ×2 (08:25→16:56)
[2020-09-08] MEDS: OXYBUTYNIN CHLORIDE 5 MG TABLET PO (08:26)
[2020-09-08] MEDS: ATORVASTATIN 10 MG TABLET PO (08:26)
[2020-09-08] MEDS: DOXAZOSIN MESYLATE 4 MG TABLET 8 MG PO ×2 (08:26→21:41)
--- NOTE | 2020-09-08 09:26 | PCPTNOTE ---
PT eval on hold for AM per RN. Will try again at later time.
[2020-09-08 11:52] LABS: Iron 11 ug/dL (49-181); Percent Iron Saturation 5 % (20-50)
--- NOTE | 2020-09-08 14:08 | PM.IMPN ---
Progress Note: A&P Assessment and Plan (1) Rhabdomyolysis: Qualifiers: Encounter type: subsequent encounter Rhabdomyolysis type: traumatic Qualified Code(s): T79.6XXD - Traumatic ischemia of muscle, subsequent encounter Code(s): M62.82 - Rhabdomyolysis Status: Acute Assessment and Plan: CK appears to be improving today with IV fluids. Patient reportedly was on toilet for extended amount of time, as well as, falls at home Continue IV fluids for now Recheck CK in the a.m. Monitor renal function (2) Acute renal failure: Code(s): N17.9 - Acute kidney failure, unspecified Status: Acute Assessment and Plan: Likely prerenal from dehydration vs rhabdomyolysis or combination thereof. Cr now 1.80 today. Renal US grossly unremarkable Continue to hold home lisinopril Continue IV fluids Monitor renal function daily Renally dose medications; avoid nephrotoxic agents (3) Abnormal urinalysis: Code(s): R82.90 - Unspecified abnormal findings in urine Status: Acute Assessment and Plan: UA suggestive of UTI. Given one dose of Rocephin on 09/07. Briefly placed on Zosyn and vanc overnight due to concerns of scrotal/perineal infection although patient evaluated by Urology and felt this is less likely; transitioned back to Rocephin. Ucx pending Continue IV Rocephin Tailor antibiotics to urine cultures Monitor for improvement (4) Pressure ulcer: Qualifiers: Pressure injury location: unspecified location Pressure injury stage: stage 1 Qualified Code(s): L89.91 - Pressure ulcer of unspecified site, stage 1 Code(s): L89.90 - Pressure ulcer of unspecified site, unspecified stage Status: Acute Assessment and Plan: Initially there were concerns for scrotal ulcer/perineal infection or even Rosalia's gangrene, however this seems to be less likely. Patient spent several hours on the toilet, reportedly. Maceration of skin suggestive of this as well. Wound care following Urology following and appreciate recommendations Continue with Wound Care recommendations (5) Multiple falls: Code(s): R29.6 - Repeated falls Status: Acute Assessment and Plan: Unclear etiology, although it sounds this is has precipitated recently. Possibly 2/2 acute infection or worsening physical deconditioning; other etiologies could be arrhythmias vs orthostatic hypotension, although speaking to patient and sister, Jennifer, it sounds that patient may have just been losing footing/balance and falling at home. No dizziness/lightheadedness, chest pain/palpitations surrounding falls. Patient is max assist today with therapy Continue PT/OT CC following for possible rehab (6) Hypertension: Code(s): I10 - Essential (primary) hypertension Status: Chronic Assessment and Plan: BP 160s sys most recently Hold lisinopril given TRAV Continue with p.r.n. hydralazine Continue with home metoprolol. (7) BPH (benign prostatic hyperplasia): Code(s): N40.0 - Benign prostatic hyperplasia without lower urinary tract symptoms Status: Chronic Assessment and Plan: Patient has rodas in place this stay Continue with doxazosin and tamsulosin (8) Atrial fibrillation: Code(s): I48.91 - Unspecified atrial fibrillation Status: Chronic Assessment and Plan: Patient had a cardiac ablation that has been successful; also on Eliquis for anticoagulation and metoprolol for rate control Continue metoprolol If patient continues to have falls and shows no improvement with therapy, he will have to have his anticoagulation to be readdressed as this puts him at increased of bleeding _
--- NOTE | 2020-09-08 16:47 | WPDCN ---
Assessment and Plan Assessment and plan (1) Right hand pain: Code(s): M79.641 - Pain in right hand Status: Acute Assessment and Plan: Splint. Therapy to see . Will follow intermittent or as outpatient if discharged. He does have significant discomfort in his right hand; however, this appears to be soft tissue. I see no signs of infection. No evidence of vascular compromise. Radiograph evidence of polyarticular osteoarthritis. Further he has no tenderness at the site of possible foreign body identified on radiograph. Therapy and splint. Will follow intermittently. Please reach out if any change in the interim or if I can be of further assistance. If discharge follow-up with me in 1 week. (2) Foreign body of right hand: Code(s): S60.551A - Superficial foreign body of right hand, initial encounter Status: Acute HPI Data of Consult Date/Time: 09/08/20 16:47 Requesting Physician: Gerson Lazo PA-C Primary Care Provider: Leon Taylor MD Consult Narrative Narrative: Justus Rodriguez is a 70 year old male for whom I was consulted to see due to fall on hand / foreign body. He has a moderate historian. He presented to the emergency room yeserday due to frequent falls. The patient has had over 4 falls this week with the most recent being yesterday. The patient stated that he went to answer the door and fell. Previously to [facility] on 09/01/2020 with injury to right hand placed in thumb spicca. Admitted for evaluation. Consultation requested for evaluation. I reviewed the radiograph. Evidence of foreign body superficial near index proximal phalanx. [facility] Past Medical History Medical History (Updated 09/08/20 @ 17:15 by Popeye Jimenez MD) Atrial fibrillation Treated with ablation currently on anticoagulation. BPH (benign prostatic hyperplasia) Chronic anemia Hyperlipidemia Hypertension Surgical History Surgical History (Updated 09/07/20 @ 20:33 by Madai Roberson NP) H/O heart bypass surgery 3 way bypass H/O hernia repair Right lower abdomen with mesh History of cardiac radiofrequency ablation History of knee replacement Family History Family History (Updated 09/07/20 @ 20:35 by Madai Roberson NP) Sibling Atrial fibrillation Father Heart disease Mother Congestive heart failure Social History Social History (Updated 09/07/20 @ 20:38 by Madai Roberson NP) Social History: The patient never or had any children. 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 He does not have a durable power cloth washer for healthcare. He desires to be a full code. The patient stated that he never smoked rarely uses alcohol does not use any marijuana or illicit drugs. Smoking status: Never smoker Alcohol intake: former Substance use: never Substance use type: does not use Living arrangements: alone Occupation/Education: occupation Gender identity (if verbalized by the patient): Male Spiritual care concerns: No Meds Home Medications and Allergies Home Medications Medication Instructions Recorded Confirmed Type acetaminophen-codeine 1 tablet PO HS PRN #10 tablet 09/01/20 09/07/20 Rx apixaban [Eliquis] 5 mg PO BID 09/01/20 09/07/20 History atorvastatin 10 mg PO DAILY 09/01/20 09/07/20 History doxazosin 8 mg PO BID 09/01/20 09/07/20 History furosemide 20 mg PO TID 09/01/20 09/07/20 History lisinopril 20 mg PO DAILY 09/01/20 09/07/20 History metoprolol tartrate 50 mg PO BID 09/01/20 09/07/20 History tamsulosin 0.4 mg PO BID 09/01/20 09/07/20 History oxybutynin chloride 5 mg PO DAILY 09/07/20 09/07/20 History Allergies Allergy/AdvReac Type Severity Reaction Status Date / Time No Known Allergies Allergy Verified 09/07/20 15:51 Vital Signs Vital Signs - 24 hr 09/07/20 17:00 09/07/20 18:03 09/07/20 18:45 Temperature 37.2 C 37.3 C 37.2 C Pulse Rate 103 H 105 H 107 H Respiratory Rate
[2020-09-08 22:09] LABS: Alveolar/Arterial O2 Gradient 54.2 mmHg; Base Excess ABG -4.7 mEq/l (+/-2.0); Carboxyhemoglobin 0.3 % THb (0-2.0); Fractional Inspired Oxygen 21 %; HCO3 ABG 17.6 mEq/l (22.0-26.0); Methemoglobin ABG 0.4 %THb (0-1.5); Oxygen Content ABG 12.5 %vol (16.0-22.0); Oxyhemoglobin 92.3 % THb (90.0-100.0); PO2 ABG 66.9 mmHg (80.0-100.0); PO2 FiO2 Ratio Arterial Blood 3.19 %; Total Hemoglobin 9.6 g/dL (12.0-18.0); pH ABG 7.484 (7.350-7.450)
[2020-09-08 22:12] LABS: Device ROOM AIR; PCO2 ABG 23.9 mmHg (35.0-45.0); Site Drawn RIGHT FEMORAL
--- NOTE | 2020-09-08 22:19 | PM.EVENT ---
Event Note Event Note Event Note: I was called to see the patient because he was so short of breath. We did draw some ABGs. Asked patient how he felt he felt anxious. Patient also has a temperature. He may be breathing rapidly due to his fever. His oxygen level was down to 90% so we did apply 2 L per nasal cannula. Give him some Tylenol I believe blood cultures have been ordered already. The patient had a diarrhea stool and we may start a fecal containment system as well if the patient does not stop having diarrhea as he has several areas to his buttocks that are excoriated.
[2020-09-09] VITALS (13 sets, daily range): BP systolic 122–163; BP diastolic 53–68; PULSE 85–106; RESP 20–42; TEMP 36.7–39.4; O2SAT 95–100
[2020-09-09] MEDS: LORazepam INJ (*CRX) 2 MG/ML VIAL 0.5 MG IV PUSH (00:12)
--- NOTE | 2020-09-09 00:59 | PC.NURSE ---
Madai Roberson notified of respirations 40-46 and fever 100.6. ABGs ordered and provider came to assess patient. Patient had become incontinent of diarrhea at this time for which vancomycin was ordered due to extensive wounds on buttocks.
[2020-09-09 05:40] LABS: Basophils Percent Auto 0.1 % (0.2-1.2); Hematocrit 26.1 % (42.0-52.0); Hemoglobin 7.8 g/dL (14.0-18.0); Immature Granulocyte Absolute 0.08 K/mm3 (0.00-0.031); Immature Granulocyte Percent A 0.8 % (0-0.5); Lymphocytes Absolute Auto 0.72 K/mm3 (0.9-3.2); Lymphocytes Percent Auto 6.9 % (18.3-44.2); Mean Corpuscular HGB Conc 29.9 g/dl (32-36); Mean Corpuscular Hemoglobin 22.4 pg (26-34); Monocytes Absolute Auto 1.1 K/mm3 (0.1-0.6); Monocytes Percent Auto 10.8 % (2.6-8.5); Neutrophils Absolute Auto 8.5 K/mm3 (1.3-6.7); Neutrophils Percent Auto 81.4 % (45.5-73.1); Platelet Count Result 199 k/mm3 (150-375); Red Blood Count 3.48 M/mm3 (4.6-6.20); Red Cell Distribution Width 15.9 % (11.5-14.5); White Blood Count 10.4 K/mm3 (4.5-10.0)
[2020-09-09 06:06] LABS: Anion Gap 7 mmol/L (8-16); Blood Urea Nitrogen 39 mg/dL (9-20); Calcium 8.2 mg/dL (8.4-10.2); Carbon Dioxide 20 mmol/L (22-30); Chloride 105 mmol/L (98-107); Creatine Kinase 748 U/L (55-170); Estimated CRCL calculation 49 ml/min; Estimated Glomerular Filt Rate 43; Glucose 120 mg/dL (75-110); Magnesium 2.1 mg/dL (1.6-2.3); Sodium 132 mmol/L (137-145)
[2020-09-09 07:20] LABS: Anisocytosis 1+ (NORMAL); Ovalocytes 1+ (NORMAL); Platelet Estimate Adequate (Adequate); Target Cells 1+ (NORMAL)
[2020-09-09 08:20] LABS: Alveolar/Arterial O2 Gradient 77.1 mmHg; Base Excess ABG -3.7 mEq/l (+/-2.0); Carboxyhemoglobin 0.3 % THb (0-2.0); Device NASAL CANNULA; Fractional Inspired Oxygen 28 %; HCO3 ABG 19.2 mEq/l (22.0-26.0); Methemoglobin ABG 0.3 %THb (0-1.5); Oxygen Content ABG 12.4 %vol (16.0-22.0); Oxygen Saturation ABG 97.5 % (95.0-100.0); Oxyhemoglobin 95.8 % THb (90.0-100.0); PCO2 ABG 27.1 mmHg (35.0-45.0); PO2 ABG 90.6 mmHg (80.0-100.0); PO2 FiO2 Ratio Arterial Blood 3.24 %; Reduced Hemoglobin 3.6 %THb (0-5.0); Site Drawn LEFT BRACHIAL; Total Hemoglobin 9.1 g/dL (12.0-18.0); pH ABG 7.468 (7.350-7.450)
[2020-09-09] MEDS: APIXABAN 5 MG TABLET PO ×2 (09:58→17:25)
[2020-09-09] MEDS: TAMSULOSIN HCL 0.4 MG CAPSULE PO ×2 (09:58→21:17)
[2020-09-09] MEDS: METOPROLOL TARTRATE 50 MG TAB PO ×2 (09:58→21:16)
[2020-09-09] MEDS: DOXAZOSIN MESYLATE 4 MG TABLET 8 MG PO ×2 (09:58→21:17)
[2020-09-09] MEDS: OXYBUTYNIN CHLORIDE 5 MG TABLET PO (09:58)
[2020-09-09] MEDS: ATORVASTATIN 10 MG TABLET PO (09:58)
--- NOTE | 2020-09-09 11:38 | PM.IMPN ---
Progress Note: A&P Assessment and Plan (1) Sepsis: Code(s): A41.9 - Sepsis, unspecified organism Status: Acute Assessment and Plan: Patient was found to be septic with fever, tachycardia, tachypnea, and hypoxia. A chest x-ray showing possible pneumonia, we have been treating for UTI but urine cultures were negative. Antibiotics were adjusted her broader spectrum of coverage for possible pneumonia and still ruling out viral SIRS. COVID tested feeling Antibiotics started Recheck blood cultures Continue monitoring vital signs with Tylenol as needed for fever (2) Acute and chronic respiratory failure with hypoxia: Code(s): J96.21 - Acute and chronic respiratory failure with hypoxia Status: Acute Assessment and Plan: Patient was found to have hypoxia last night and was placed on 2 L of oxygen. He also had fevers, tachycardia, tachypnea which meet criteria for sepsis. Chest x-ray showed possible pneumonia to mid and left lower lung gonzales. ABG showed respiratory alkalosis He was started on broader spectrum antibiotics for coverage of pneumonia, IV Flagyl, Vanco, and ceftriaxone He has also tested for COVID due to being hospitalized in at high risk in test is currently pending Continue monitoring respiratory status, wean oxygen as needed (3) Rhabdomyolysis: Qualifiers: Encounter type: subsequent encounter Rhabdomyolysis type: traumatic Qualified Code(s): T79.6XXD - Traumatic ischemia of muscle, subsequent encounter Code(s): M62.82 - Rhabdomyolysis Status: Acute Assessment and Plan: CK appears to be improving today with IV fluids, with a CK of 748. Patient reportedly was on toilet for extended amount of time, as well as, falls at home Continue IV fluids for now due to sepsis Recheck CK in the a.m. Monitor renal function (4) Acute renal failure: Code(s): N17.9 - Acute kidney failure, unspecified Status: Acute Assessment and Plan: Likely prerenal from dehydration vs rhabdomyolysis or combination thereof. Improved, Cr now 1.60 today. Renal US grossly unremarkable Continue to hold home lisinopril Continue IV fluids due to sepsis and dehydration Monitor renal function daily Renally dose medications; avoid nephrotoxic agents (5) Abnormal urinalysis: Code(s): R82.90 - Unspecified abnormal findings in urine Status: Acute Assessment and Plan: UA suggestive of UTI. Given one dose of Rocephin on 09/07. Briefly placed on Zosyn and vanc overnight due to concerns of scrotal/perineal infection although patient evaluated by Urology and felt this is less likely; transitioned back to Rocephin. Ucx pending Urine cultures came back negative (6) Pressure ulcer: Qualifiers: Pressure injury location: unspecified location Pressure injury stage: stage 1 Qualified Code(s): L89.91 - Pressure ulcer of unspecified site, stage 1 Code(s): L89.90 - Pressure ulcer of unspecified site, unspecified stage Status: Acute Assessment and Plan: Initially there were concerns for scrotal ulcer/perineal infection or even Rosalia's gangrene, however this seems to be less likely. Patient spent several hours on the toilet, reportedly. Maceration of skin suggestive of this as well. Wound care following Urology following and appreciate recommendations Continue with Wound Care recommendations (7) Multiple falls: Code(s): R29.6 - Repeated falls Status: Acute Assessment and Plan: Unclear etiology, although it sounds this is has precipitated recently. Possibly 2/2 acute infection or worsening physical deconditioning; other etiologies could be arrhythmias vs orthostatic
[2020-09-09] MEDS: metroNIDAZOLE 500 MG/ISO 100ML 500 MG/100 ML BAG 100 MG IVPB ×2 (12:35→19:47)
--- NOTE | 2020-09-09 13:27 | PC.NURSE ---
This patient, Justus Rodriguez, was received from [[address] [place] [address]] on 09/09/20 at 1140. Patient/family oriented to unit policies and routines
[2020-09-09 14:13] LABS: IFOB Positive Control Positive; Immunochemical Fecal Occult Bl Negative (N)
[2020-09-09] MEDS: ACETAMINOPHEN 325 MG TABLET 650 MG PO (17:24)
[2020-09-09 19:42] LABS: SARS-CoV-2 RNA PCR Negative
[2020-09-10] VITALS (9 sets, daily range): BP systolic 125–141; BP diastolic 67–83; PULSE 72–114; RESP 16–36; TEMP 36.6–37; O2SAT 93–97; BMI 11.0
[2020-09-10] MEDS: metroNIDAZOLE 500 MG/ISO 100ML 500 MG/100 ML BAG 100 MG IVPB ×2 (00:55→06:24)
[2020-09-10] MEDS: OXYBUTYNIN CHLORIDE 5 MG TABLET PO (09:02)
[2020-09-10] MEDS: APIXABAN 5 MG TABLET PO ×2 (09:02→17:03)
[2020-09-10] MEDS: METOPROLOL TARTRATE 50 MG TAB PO ×2 (09:02→20:05)
[2020-09-10] MEDS: TAMSULOSIN HCL 0.4 MG CAPSULE PO ×2 (09:02→20:05)
[2020-09-10] MEDS: DOXAZOSIN MESYLATE 4 MG TABLET 8 MG PO ×2 (09:02→20:05)
[2020-09-10] MEDS: ATORVASTATIN 10 MG TABLET PO (09:02)
[2020-09-10 09:17] LABS: Basophils Percent Auto 0.2 % (0.2-1.2); Eosinophils Percent Auto 0.3 % (0-4.4); Hematocrit 28.2 % (42.0-52.0); Hemoglobin 8.6 g/dL (14.0-18.0); Immature Granulocyte Absolute 0.15 K/mm3 (0.00-0.031); Immature Granulocyte Percent A 1.3 % (0-0.5); Lymphocytes Absolute Auto 1.12 K/mm3 (0.9-3.2); Lymphocytes Percent Auto 9.6 % (18.3-44.2); Mean Corpuscular HGB Conc 30.5 g/dl (32-36); Mean Corpuscular Volume 75.4 fl (80-100); Mean Platelet Volume 10.7 fl (7.4-10.4); Monocytes Absolute Auto 0.9 K/mm3 (0.1-0.6); Monocytes Percent Auto 7.9 % (2.6-8.5); Neutrophils Absolute Auto 9.5 K/mm3 (1.3-6.7); Neutrophils Percent Auto 80.7 % (45.5-73.1); Platelet Count Result 229 k/mm3 (150-375); Red Blood Count 3.74 M/mm3 (4.6-6.20); White Blood Count 11.7 K/mm3 (4.5-10.0)
--- NOTE | 2020-09-10 09:38 | WPDUROPN2 ---
Progress Note: A&P Assessment and Plan (1) Scrotal edema: Code(s): N50.89 - Other specified disorders of the male genital organs Status: Acute Assessment and Plan: Elevate Scrotum with a rolled towel, unlikely that a scrotal support can be applied. Will take time to resolve, not infectious in origin but more likely resulting from abdominal fluid. (2) BPH (benign prostatic hyperplasia): Code(s): N40.0 - Benign prostatic hyperplasia without lower urinary tract symptoms Status: Chronic Assessment and Plan: Keep rodas in at this time, ok to do a voiding trial prior to discharge. Continue Tamsulosin, Oxybutynin and Doxyzosin. If unable to urinate, stop Oxybutynin and re-place rodas, then follow up with our office for a voding trial in 7-10 days. (3) UTI (urinary tract infection): Code(s): N39.0 - Urinary tract infection, site not specified Status: Acute Assessment and Plan: Continue IV antibiotics. Culture grew E-Coli on 09/07/2020. Subjective Subjective Date/Time Seen: 09/10/20 09:38 Scrotal Edema Present, minimal improvement. Review of Systems Cardiovascular: Cardiovascular: Denies chest pain Respiratory: Respiratory: Reports no additional respiratory complaints Gastrointestinal: Gastrointestinal: Reports abdominal pain, Denies nausea and Denies vomiting Genitourinary: Genitourinary: Denies flank pain and Reports other (urinary retention) Exam Resp: Effort & Inspection: normal respiratory effort Cardio: Rate: regular rate GI: GI Palp: Yes Soft to palpation and No Tenderness to palpation present (GI) : General: Yes no CVA tenderness Scrotum: scrotal swelling Urinary Catheter: Urinary Catheter: patent and draining and urine dark Extrem: General: edema bilateral Objective Data Vital Signs Vital Signs: Vital Signs - 24 hr 09/09/20 09:58 09/09/20 10:00 09/09/20 11:45 Temperature 100.6 F H 100.8 F H Pulse Rate 105 H 105 H 85 Respiratory Rate 42 H 40 H Blood Pressure 163/57 H 153/61 H Pulse Oximetry 99 98 09/09/20 13:29 09/09/20 16:00 09/09/20 17:24 Temperature 102.9 F H 102.8 F H Pulse Rate 105 H 106 H Respiratory Rate 42 H 42 H Blood Pressure 148/61 H Pulse Oximetry 99 97 09/09/20 17:34 09/09/20 20:00 09/09/20 20:52 Temperature 99.9 F H 99.9 F H Pulse Rate 95 Respiratory Rate 20 Blood Pressure 122/68 Pulse Oximetry 95 99 09/09/20 21:16 09/10/20 05:56 09/10/20 09:02 Temperature 98.6 F Pulse Rate 105 H 74 74 Respiratory Rate 36 H Blood Pressure 141/67 H Pulse Oximetry 95 Intake/Output Intake/Output: Intake & Output 09/07/20 09/08/20 09/09/20 09/10/20 23:59 23:59 23:59 23:59 Intake Total 1600 4260 1835 1150 Output Total 20 1475 1350 750 Balance 1580 2785 485 400 Meds/Results Medications: Active Medications Generic Name Dose Route Start Last Admin Trade Name Freq PRN Reason Stop Dose Admin Acetaminophen 650 mg 09/09/20 08:01 09/09/20 17:24 Acetaminophen 325 Mg Tablet PO 650 mg Q4H PRN Administration Mild Pain (1-3) or Fever Apixaban 5 mg 09/08/20 09:00 09/10/20 09:02 Apixaban 5 Mg Tablet PO 5 mg BID TERRENCE Administration Atorvastatin Calcium 10 mg 09/08/20 09:00 09/10/20 09:02 Atorvastatin 10 Mg Tablet PO 10 mg DAILY TERRENCE Administration Doxazosin Mesylate 8 mg 09/08/20 09:00 09/10/20 09:02 Doxazosin Mesylate 4 Mg Tablet PO 8 mg Q12HR TERRENCE Administration Hydralazine HCl 10 mg 09/07/20 20:57 Hydralazine Hcl 20 Mg/Ml Vial IV PUSH Q8H PRN Blood Pressure - High Ceftriaxone Sodium/Dextrose 1 gm in 50 mls @ 100 mls/hr 09/08/20 15:00 09/09/20 16:26 Rocephin 1 Gm/D5w 50 Ml IVPB 100 mls/hr Q24H TERRENCE Administration Vancomycin HCl 1,750 mg in 500 mls @ 250 mls/hr 09/09/20 22:00 09/10/20 00:48 Vancomycin 1,750 Mg/D5w 500 Ml IVPB Infused Q24H TERRENCE Infusion Metronidazole 500 mg in 100 mls @ 100 mls/hr
[2020-09-10 10:55] LABS: Alanine Aminotransferase 43 U/L (4-50); Albumin Level 3.1 g/dL (3.5-5.1); Alkaline Phosphatase 104 U/L (38-126); Anion Gap 9 mmol/L (8-16); Aspartate Amino Transferase 70 U/L (17-59); Bilirubin,Total 0.4 mg/dL (0.2-1.3); Blood Urea Nitrogen 37 mg/dL (9-20); CRP 35.6 mg/dL (<1.0); Calcium 8.6 mg/dL (8.4-10.2); Carbon Dioxide 19 mmol/L (22-30); Chloride 105 mmol/L (98-107); Creatine Kinase 240 U/L (55-170); Estimated CRCL calculation 53 ml/min; Estimated Glomerular Filt Rate 46; Glucose 115 mg/dL (75-110); Lactate Dehydrogenase 468 U/L (313-618); Potassium 3.8 mmol/L (3.4-5.0); Sodium 133 mmol/L (137-145)
[2020-09-10] MEDS: metroNIDAZOLE 500 MG/ISO 100ML 500 MG/100 ML BAG 10 MG IVPB ×2 (11:48→17:09)
--- NOTE | 2020-09-10 16:17 | PM.IMPN ---
Progress Note: A&P Assessment and Plan (1) Sepsis: Code(s): A41.9 - Sepsis, unspecified organism Status: Acute Assessment and Plan: Patient was found to be septic with fever, tachycardia, tachypnea, and hypoxia. A chest x-ray showing possible pneumonia, we have been treating for UTI but urine cultures were negative. Antibiotics were adjusted her broader spectrum of coverage for pneumonia COVID was negative Antibiotics started, IV ceftriaxone, vancomycin and Flagyl Recheck blood cultures, both sets from 09/07 and 09/09/2020 are pending with no abnormality at this time Continue monitoring vital signs with Tylenol as needed for fever (2) Acute and chronic respiratory failure with hypoxia: Code(s): J96.21 - Acute and chronic respiratory failure with hypoxia Status: Acute Assessment and Plan: Patient was found to have hypoxia last night and was placed on 2 L of oxygen. He also had fevers, tachycardia, tachypnea which meet criteria for sepsis. Chest x-ray showed possible pneumonia to mid and left lower lung gonzales. ABG showed respiratory alkalosis He was started on broader spectrum antibiotics for coverage of pneumonia, IV Flagyl, Vanco, and ceftriaxone COVID was negative Patient's respiratory status has improved he is now only on a 0.5 L of oxygen Continue monitoring respiratory status, wean oxygen as needed (3) Rhabdomyolysis: Qualifiers: Encounter type: subsequent encounter Rhabdomyolysis type: traumatic Qualified Code(s): T79.6XXD - Traumatic ischemia of muscle, subsequent encounter Code(s): M62.82 - Rhabdomyolysis Status: Acute Assessment and Plan: CK appears to be improving today with IV fluids, with a CK of 748. Patient reportedly was on toilet for extended amount of time, as well as, falls at home CK appears normal and he is no longer dehydrated appearing Monitor renal function (4) Acute renal failure: Code(s): N17.9 - Acute kidney failure, unspecified Status: Acute Assessment and Plan: Likely prerenal from dehydration vs rhabdomyolysis or combination thereof. Improved, Cr now 1.60 today. Renal US grossly unremarkable Continue to hold home lisinopril Continue IV fluids due to sepsis and dehydration Monitor renal function daily Renally dose medications; avoid nephrotoxic agents (5) Abnormal urinalysis: Code(s): R82.90 - Unspecified abnormal findings in urine Status: Acute Assessment and Plan: UA suggestive of UTI. Given one dose of Rocephin on 09/07. Briefly placed on Zosyn and vanc overnight due to concerns of scrotal/perineal infection although patient evaluated by Urology and felt this is less likely; transitioned back to Rocephin. Urine cultures came back negative (6) Pressure ulcer: Qualifiers: Pressure injury location: unspecified location Pressure injury stage: stage 1 Qualified Code(s): L89.91 - Pressure ulcer of unspecified site, stage 1 Code(s): L89.90 - Pressure ulcer of unspecified site, unspecified stage Status: Acute Assessment and Plan: Initially there were concerns for scrotal ulcer/perineal infection or even Rosalia's gangrene, however this seems to be less likely. Patient spent several hours on the toilet, reportedly. Maceration of skin suggestive of this as well. Wound care following Urology following and appreciate recommendations Continue with Wound Care recommendations (7) Multiple falls: Code(s): R29.6 - Repeated falls Status: Acute Assessment and Plan: Unclear etiology, although it sounds this is has precipitated recently. Possibly 2/2 acute infection or worsening physical deconditioning;
[2020-09-10] MEDS: ACETAMINOPHEN 325 MG TABLET 650 MG PO (17:03)
[2020-09-10 21:34] LABS: Vancomycin Trough 25.1 ug/mL (10.0-20.0)
[2020-09-11] VITALS (9 sets, daily range): BP systolic 110–157; BP diastolic 70–104; PULSE 65–106; RESP 16–20; TEMP 36.4–36.9; O2SAT 93–97
[2020-09-11] MEDS: metroNIDAZOLE 500 MG/ISO 100ML 500 MG/100 ML BAG 100 MG IVPB ×4 (00:34→17:18)
[2020-09-11 07:18] LABS: Basophils Percent Auto 0.3 % (0.2-1.2); Eosinophils Absolute Auto 0.1 K/mm3 (0-0.3); Eosinophils Percent Auto 0.6 % (0-4.4); Hematocrit 28.4 % (42.0-52.0); Hemoglobin 8.4 g/dL (14.0-18.0); Immature Granulocyte Absolute 0.17 K/mm3 (0.00-0.031); Lymphocytes Absolute Auto 0.95 K/mm3 (0.9-3.2); Mean Corpuscular HGB Conc 29.6 g/dl (32-36); Mean Corpuscular Hemoglobin 22.8 pg (26-34); Mean Platelet Volume 11.4 fl (7.4-10.4); Monocytes Absolute Auto 0.7 K/mm3 (0.1-0.6); Monocytes Percent Auto 8.3 % (2.6-8.5); Neutrophils Absolute Auto 6.7 K/mm3 (1.3-6.7); Neutrophils Percent Auto 77.8 % (45.5-73.1); Platelet Count Result 227 k/mm3 (150-375); Red Blood Count 3.69 M/mm3 (4.6-6.20); Red Cell Distribution Width 16.1 % (11.5-14.5); White Blood Count 8.7 K/mm3 (4.5-10.0)
[2020-09-11 07:36] LABS: Alanine Aminotransferase 39 U/L (4-50); Albumin Level 2.9 g/dL (3.5-5.1); Alkaline Phosphatase 90 U/L (38-126); Anion Gap 12 mmol/L (8-16); Aspartate Amino Transferase 64 U/L (17-59); Bilirubin,Total 0.5 mg/dL (0.2-1.3); Blood Urea Nitrogen 41 mg/dL (9-20); Calcium 8.3 mg/dL (8.4-10.2); Carbon Dioxide 16 mmol/L (22-30); Chloride 103 mmol/L (98-107); Creatine Kinase 151 U/L (55-170); Estimated CRCL calculation 56 ml/min; Estimated Glomerular Filt Rate 50; Glucose 108 mg/dL (75-110); Potassium 4.2 mmol/L (3.4-5.0); Sodium 131 mmol/L (137-145)
[2020-09-11 08:04] LABS: Hypochromasia 2+ (NORMAL); Ovalocytes 2+ (NORMAL); Platelet Estimate Adequate (Adequate)
[2020-09-11 08:06] LABS: Burr Cells 2+ (NORMAL)
[2020-09-11 08:07] LABS: Crenated RBC 2+ (NORMAL)
[2020-09-11] MEDS: APIXABAN 5 MG TABLET PO ×2 (08:25→17:18)
[2020-09-11] MEDS: OXYBUTYNIN CHLORIDE 5 MG TABLET PO (08:25)
[2020-09-11] MEDS: DOXAZOSIN MESYLATE 4 MG TABLET 8 MG PO ×2 (08:25→20:13)
[2020-09-11] MEDS: ATORVASTATIN 10 MG TABLET PO (08:25)
[2020-09-11] MEDS: METOPROLOL TARTRATE 50 MG TAB PO ×2 (08:26→20:13)
[2020-09-11] MEDS: TAMSULOSIN HCL 0.4 MG CAPSULE PO ×2 (08:26→20:13)
[2020-09-11 08:49] LABS: CRP 31.5 mg/dL (<1.0)
[2020-09-11] MEDS: FUROSEMIDE 20 MG TABLET PO ×3 (10:59→17:18)
--- NOTE | 2020-09-11 11:38 | PCNFU ---
Nutrition Follow-Up Complete: Increased Protein needs as related to wounds as evidenced by Deep Tissue PU. Goal: Meet estimated nutritional needs Progressing towards goal. We will continue current goal. Pt current nutrition is Heart Healthy. Nutrition recommendation: Agree Last recorded weight is 118.6 kg, no new weight reported. Bowel Motility: +BM 09/11 Labs Reviewed:BUN 41,Cr 1.4,Alb 2.9 Meds Noted:Vancomycin,Lipitor,Lasix,Flagyl,Lopressor, Eliquis Additional Notes: Nutrition follow up. PO intake is improving 50-75% of meals. 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 Agree with nursing this will hopefully help with oral intake. Patient is weak receiving OT and PT. Also receiving Ensure Enlive BID providing an additional 350 kcals and 20 gms protein. Monitoring: Will monitor every 5 days.
--- NOTE | 2020-09-11 11:42 | WPDUROPN2 ---
Progress Note: A&P Assessment and Plan (1) Scrotal edema: Code(s): N50.89 - Other specified disorders of the male genital organs Status: Acute (2) BPH (benign prostatic hyperplasia): Code(s): N40.0 - Benign prostatic hyperplasia without lower urinary tract symptoms Status: Chronic Assessment and Plan: Keep rodas in at this time, ok to do a voiding trial prior to discharge. Continue Tamsulosin, Oxybutynin and Doxyzosin. If unable to urinate, stop Oxybutynin and re-place rodas, then follow up with our office for a voding trial in 7-10 days. (3) UTI (urinary tract infection): Code(s): N39.0 - Urinary tract infection, site not specified Status: Acute Assessment and Plan: Continue IV antibiotics. Culture grew E-Coli on 09/07/2020. 09/11/2019 Scrotal sore has healed nicely. Needs scrotal elevation for edema. Voiding trial when more ambulatory. Subjective Subjective Date/Time Seen: 09/11/20 11:42 No c/o scrotal pain. Review of Systems Cardiovascular: Cardiovascular: Denies chest pain, Denies lightheadedness, Denies palpitations and Denies dyspnea Respiratory: Respiratory: Denies dyspnea Gastrointestinal: Gastrointestinal: Denies diarrhea, Denies nausea and Denies vomiting Genitourinary: Genitourinary: Denies hematuria and Denies dysuria Endocrine: Endocrine: Denies palpitations Exam Const: General: no acute distress Resp: Effort & Inspection: normal respiratory effort GI: Inspection: non-distended GI Palp: No abdominal tenderness and No Guarding due to palpation present (GI) Auscultation: normal bowel sounds : Male General Exam: Yes edema (moderate scrotal edema / scrotal lesion essentially healed) Urinary Catheter: Urinary Catheter: patent and draining and urine clear Objective Data Vital Signs Vital Signs: Vital Signs - 24 hr 09/10/20 14:00 09/10/20 14:53 09/10/20 16:01 Temperature 97.8 F Pulse Rate 72 102 H Respiratory Rate 16 18 Blood Pressure 125/83 Pulse Oximetry 94 93 93 09/10/20 20:00 09/10/20 20:05 09/10/20 22:00 Temperature 98.3 F Pulse Rate 98 114 H Respiratory Rate 20 20 Blood Pressure 132/70 Pulse Oximetry 96 97 09/11/20 06:00 09/11/20 08:00 09/11/20 08:26 Temperature 98.4 F Pulse Rate 97 96 Respiratory Rate 20 Blood Pressure 133/74 Pulse Oximetry 94 94 Intake/Output Intake/Output: Intake & Output 09/08/20 09/09/20 09/10/20 09/11/20 23:59 23:59 23:59 23:59 Intake Total 4260 1885 2885 800 Output Total 1475 1350 1000 100 Balance 2785 535 1885 700 Meds/Results Medications: Active Medications Generic Name Dose Route Start Last Admin Trade Name Freq PRN Reason Stop Dose Admin Acetaminophen 650 mg 09/09/20 08:01 09/10/20 17:03 Acetaminophen 325 Mg Tablet PO 650 mg Q4H PRN Administration Mild Pain (1-3) or Fever Apixaban 5 mg 09/08/20 09:00 09/11/20 08:25 Apixaban 5 Mg Tablet PO 5 mg BID TERRENCE Administration Atorvastatin Calcium 10 mg 09/08/20 09:00 09/11/20 08:25 Atorvastatin 10 Mg Tablet PO 10 mg DAILY TERRENCE Administration Doxazosin Mesylate 8 mg 09/08/20 09:00 09/11/20 08:25 Doxazosin Mesylate 4 Mg Tablet PO 8 mg Q12HR TERRENCE Administration Furosemide 20 mg 09/11/20 09:55 09/11/20 10:59 Furosemide 20 Mg Tablet PO 20 mg TID TERRENCE Administration Hydralazine HCl 10 mg 09/07/20 20:57 Hydralazine Hcl 20 Mg/Ml Vial IV PUSH Q8H PRN Blood Pressure - High Ceftriaxone Sodium/Dextrose 1 gm in 50 mls @ 100 mls/hr 09/08/20 15:00 09/10/20 16:53 Rocephin 1 Gm/D5w 50 Ml IVPB Infused Q24H TERRENCE Infusion Vancomycin HCl 1,750 mg in 500 mls @ 250 mls/hr 09/09/20 22:00 09/10/20 22:52 Vancomycin 1,750 Mg/D5w 500 Ml IVPB 250 mls/hr Q24H TERRENCE Administration Metronidazole 500 mg in 100 mls @ 100 mls/hr 09/09/20 12:00 09/11/20 06:25 Flagyl 500 Mg/Iso Soln 100 Ml IVPB Infused Q6HR TERRENCE Infusion I
--- NOTE | 2020-09-11 15:07 | PM.IMPN ---
Progress Note: A&P Assessment and Plan (1) Sepsis: Code(s): A41.9 - Sepsis, unspecified organism Status: Acute Assessment and Plan: Patient was found to be septic with fever, tachycardia, tachypnea, and hypoxia. A chest x-ray showing possible pneumonia, we have been treating for UTI but urine cultures were negative. Antibiotics were adjusted her broader spectrum of coverage for pneumonia COVID was negative Antibiotics started, IV ceftriaxone, vancomycin and Flagyl Recheck blood cultures, both sets from 09/07 and 09/09/2020 are pending with no abnormality at this time He has not had a fever in 36 hours, he still has intermittent tachycardia, still has tachypnea and is currently 93% on 1 L via nasal cannula. Leukocytosis has normalized. Continue monitoring vital signs with Tylenol as needed for fever. IV antibiotics. (2) Acute and chronic respiratory failure with hypoxia: Code(s): J96.21 - Acute and chronic respiratory failure with hypoxia Status: Acute Assessment and Plan: Patient was found to have hypoxia last night and was placed on 2 L of oxygen. He also had fevers, tachycardia, tachypnea which meet criteria for sepsis. Chest x-ray showed possible pneumonia to mid and left lower lung gonzales. ABG showed respiratory alkalosis He was started on broader spectrum antibiotics for coverage of pneumonia, IV Flagyl, Vanco, and ceftriaxone COVID was negative Patient's respiratory status has improved he is now only on a 0.5 L of oxygen, but he is still tachypneic with dyspnea with talking. A CTA of the patient's chest for further evaluation for hypoxia, tachypnea, tachycardia and rule out PE even though he is currently on Eliquis which is a home medication. He also has bilateral calf pains this will order ultrasound of his bilateral extremities to rule out DVT. Continue monitoring respiratory status, wean oxygen as needed (3) UTI (urinary tract infection): Code(s): N39.0 - Urinary tract infection, site not specified Status: Acute Assessment and Plan: UA suggestive of UTI. Given one dose of Rocephin on 09/07. Briefly placed on Zosyn and vanc overnight due to concerns of scrotal/perineal infection although patient evaluated by Urology and felt this is less likely; transitioned back to Rocephin. Urine cultures came back showing E coli. Patient should have his last dose of IV Rocephin on 09/13/2020 for treatment of UTI. (4) Rhabdomyolysis: Qualifiers: Encounter type: subsequent encounter Rhabdomyolysis type: traumatic Qualified Code(s): T79.6XXD - Traumatic ischemia of muscle, subsequent encounter Code(s): M62.82 - Rhabdomyolysis Status: Acute Assessment and Plan: CK appears to be improving today with IV fluids, with a CK of 748. Patient reportedly was on toilet for extended amount of time, as well as, falls at home CK appears normal and he is no longer dehydrated appearing Monitor renal function (5) Acute renal failure: Code(s): N17.9 - Acute kidney failure, unspecified Status: Acute Assessment and Plan: Likely prerenal from dehydration vs rhabdomyolysis or combination thereof. Improved, Cr now 1.40 today. Renal US grossly unremarkable Continue to hold home lisinopril Monitor renal function daily Renally dose medications; avoid nephrotoxic agents (6) Pressure ulcer: Qualifiers: Pressure injury location: unspecified location Pressure injury stage: stage 1 Qualified Code(s): L89.91 - Pressure ulcer of unspecified site, stage 1 Code(s): L89.90 - Pressure ulcer of unspecified site, unspecified stage Status: Acute Assessment and Plan: Initially there were concerns for scrotal ulcer/perineal infe
[2020-09-11] MEDS: LORazepam INJ (*CRX) 2 MG/ML VIAL 0.5 MG IV PUSH (20:12)
--- NOTE | 2020-09-11 23:37 | ECG_ITS ---
Measurements Intervals [place] Rate: 136 P: [place]: 0 QRS: 82 QRSD: 112 T: -37 QT: 301 QTc: 453 Interpretive Statements ATRIAL FIBRILLATION WITH RAPID VENTRICULAR RESPONSE VENTRICULAR COUPLET INCOMPLETE LEFT BUNDLE BRANCH BLOCK NONSPECIFIC ST & T-WAVE ABNORMALITY- INF/LAT LEADS BASELINE ARTIFACT- I, II, AVR, AVL, AVF, V1 ABNORMAL ECG Electronically Signed On 09-12-2020 7:04:49 [employer] by Gentry Durand D.O.
--- NOTE | 2020-09-11 23:55 | PM.EVENT ---
Event Note Event Note Event Note: Transfer Note Called to assess this 70 year old male with known atrial fibrillation secondary to tachycardia. EKG was obtained and demonstrated atrial fibrillation w/ RVR. The patient currently denies any chest pain or palpitations. He has mild shortness of breath. The patient will transferred to IMU for Cardizem IV for rate control. Telemetry. He is currently anticoagulated on Eliquis. ABG and CXR were obtained. The patient appears to have significant pulmonary congestion in comparison to his previous CXR today. We will administer IV lasix now. Monitor Is and Os. Continue supplemental oxygen. We will consider Bipap initiation if the patient tires out. I will obtain routine labs including BMP, Mg, troponin. I will continue to assess overnight as needed.
[2020-09-12] VITALS (18 sets, daily range): BP systolic 123–156; BP diastolic 55–103; PULSE 77–129; RESP 24–30; TEMP 36.1–36.9; O2SAT 93–99
--- NOTE | 2020-09-12 | ECHO_ITS ---
Patient Info Name: Justus Rodriguez Age: 70 years : 1950 Gender: Male Ht: 70 in Wt: 261 lbs BSA: 2.47 m2 HR: 112 bpm BP: 145 / 55 mmHg Heart Rhythm: Atrial Fibrillation Technical Quality: Fair Exam Date: 09/12/2020 10:39 AM Exam Location: [facility] Pulmonary Patient Status: Inpatient Admit Date: 09/07/2020 Staff Ordering Physician: Agnse Trujillo PA-C Property Assessment Monitor: Dina Amaya RDCS Attending Provider: Agnes Trujillo PA-C Referring Physician: Ronnie VAZQUEZ; Exam Type: CA echo doppler color flow Study Info Indications - pulm edema Complete two-dimensional, color flow and Doppler transthoracic echocardiogram is performed. Summary 1. Complete two-dimensional, color flow and Doppler transthoracic echocardiogram is performed. 2. Left ventricular chamber dimension is mildly enlarged. 3. Left ventricular systolic function is normal, estimated at 60-65%. 4. There is moderately increased left ventricular wall thickness. 5. Left ventricular septal wall motion is abnormal with septal motion related to bundle branch block. 6. The left ventricular diastolic function is indeterminate. 7. Left atrial chamber dimension is severely enlarged. 8. Right atrial chamber dimension is moderately enlarged. 9. There is mild aortic valve calcification. 10. There is mild mitral valve regurgitation. 11. There is mild to moderate tricuspid valve regurgitation. 12. Moderate pulmonary hypertension, estimated pulmonary arterial systolic pressure is 55 mmHg. 13. There is mild pulmonic regurgitation. Left Ventricle Left ventricular chamber dimension is mildly enlarged. Left ventricular systolic function is normal, estimated at 60-65%. There is moderately increased left ventricular wall thickness. Left ventricular septal wall motion is abnormal with septal motion related to bundle branch block. The left ventricular diastolic function is indeterminate. Right Ventricle Right ventricular chamber dimension is normal. Right ventricular systolic function is normal. Left Atria Left atrial chamber dimension is severely enlarged. Right Atria Right atrial chamber dimension is moderately enlarged. Atrial Septum Intact interatrial septum visualized by color flow imaging. Aortic Valve The aortic valve is trileaflet. There is mild aortic valve sclerosis. There is no aortic valve stenosis. There is trace aortic valve regurgitation. There is mild aortic valve calcification. Pulmonic Valve The pulmonic valve is normal. There is no pulmonic valve stenosis. There is mild pulmonic regurgitation. Mitral Valve The mitral valve has normal leaflets. There is no mitral valve stenosis. There is mild mitral valve regurgitation. Tricuspid Valve The tricuspid valve leaflets are normal. There is no significant tricuspid valve stenosis. There is mild to moderate tricuspid valve regurgitation. Moderate pulmonary hypertension, estimated pulmonary arterial systolic pressure is 55 mmHg. Pericardium/Pleural The pericardium appears normal. There is no pericardial effusion. Inferior Vena Cava Normal inferior vena cava with <50% collapse upon inspiration consistent with elevated right atrial pressure, 10 mmHg. Aorta The aortic root size at the sinus of Valsalva is normal. The prox ascending aorta size is normal. Left Ventricular Outflow Tract Name V
[2020-09-12] MEDS: metroNIDAZOLE 500 MG/ISO 100ML 500 MG/100 ML BAG 100 MG IVPB ×4 (00:12→18:09)
[2020-09-12 00:21] LABS: Anion Gap 10 mmol/L (8-16); Blood Urea Nitrogen 39 mg/dL (9-20); Calcium 8.1 mg/dL (8.4-10.2); Carbon Dioxide 19 mmol/L (22-30); Chloride 101 mmol/L (98-107); Estimated CRCL calculation 53 ml/min; Estimated Glomerular Filt Rate 46; Glucose 117 mg/dL (75-110); Magnesium 2.2 mg/dL (1.6-2.3); Sodium 130 mmol/L (137-145)
[2020-09-12 00:33] LABS: Troponin I 0.017 ng/mL (0.000-0.034)
[2020-09-12] MEDS: dilTIAZem HCl INJ 25 MG/5 ML VIAL 20 MG IV PUSH (00:44)
--- NOTE | 2020-09-12 00:49 | PC.NURSE ---
This patient, Justus Rodriguez, was received from [ ] on 09/12/20 at 0049. Patient/family oriented to unit policies and routines
[2020-09-12 01:28] LABS: Alveolar/Arterial O2 Gradient 69.6 mmHg; Base Excess ABG -4.3 mEq/l (+/-2.0); Fractional Inspired Oxygen 21 %; HCO3 ABG 17.8 mEq/l (22.0-26.0); Oxygen Content ABG 11.5 %vol (16.0-22.0); Oxygen Saturation ABG 90.4 % (95.0-100.0); Oxyhemoglobin 85.6 % THb (90.0-100.0); PO2 ABG 51.9 mmHg (80.0-100.0); PO2 FiO2 Ratio Arterial Blood 2.47 %; Total Hemoglobin 9.5 g/dL (12.0-18.0); pH ABG 7.496 (7.350-7.450)
[2020-09-12 01:29] LABS: Device ROOM AIR; Modified Allen's Test Pass; PCO2 ABG 23.6 mmHg (35.0-45.0); Site Drawn LEFT RADIAL
[2020-09-12] MEDS: FUROSEMIDE INJ 40 MG/4 ML VIAL IV PUSH ×3 (03:36→17:06)
[2020-09-12 05:04] LABS: Basophils Percent Auto 0.2 % (0.2-1.2); Eosinophils Percent Auto 0.3 % (0-4.4); Hematocrit 26.8 % (42.0-52.0); Hemoglobin 8.4 g/dL (14.0-18.0); Immature Granulocyte Absolute 0.19 K/mm3 (0.00-0.031); Lymphocytes Percent Auto 10.5 % (18.3-44.2); Mean Corpuscular HGB Conc 31.3 g/dl (32-36); Mean Corpuscular Hemoglobin 22.9 pg (26-34); Mean Platelet Volume 11.3 fl (7.4-10.4); Monocytes Absolute Auto 0.8 K/mm3 (0.1-0.6); Monocytes Percent Auto 7.9 % (2.6-8.5); Neutrophils Absolute Auto 7.5 K/mm3 (1.3-6.7); Neutrophils Percent Auto 79.1 % (45.5-73.1); Platelet Count Result 250 k/mm3 (150-375); Red Blood Count 3.67 M/mm3 (4.6-6.20); Red Cell Distribution Width 16.1 % (11.5-14.5); White Blood Count 9.5 K/mm3 (4.5-10.0)
[2020-09-12 05:27] LABS: Alanine Aminotransferase 32 U/L (4-50); Albumin Level 2.8 g/dL (3.5-5.1); Alkaline Phosphatase 92 U/L (38-126); Anion Gap 9 mmol/L (8-16); Aspartate Amino Transferase 33 U/L (17-59); Bilirubin,Total 0.4 mg/dL (0.2-1.3); Blood Urea Nitrogen 39 mg/dL (9-20); Calcium 8.1 mg/dL (8.4-10.2); Carbon Dioxide 18 mmol/L (22-30); Chloride 103 mmol/L (98-107); Estimated CRCL calculation 53 ml/min; Estimated Glomerular Filt Rate 46; Glucose 106 mg/dL (75-110); Potassium 3.9 mmol/L (3.4-5.0); Sodium 130 mmol/L (137-145)
[2020-09-12 06:50] LABS: CRP 28.3 mg/dL (<1.0)
[2020-09-12] MEDS: TAMSULOSIN HCL 0.4 MG CAPSULE PO ×2 (08:53→21:30)
[2020-09-12] MEDS: APIXABAN 5 MG TABLET PO ×2 (08:53→17:07)
[2020-09-12] MEDS: lisinopriL 20 MG TABLET PO (08:53)
[2020-09-12] MEDS: OXYBUTYNIN CHLORIDE 5 MG TABLET PO (08:53)
[2020-09-12] MEDS: ATORVASTATIN 10 MG TABLET PO (08:53)
[2020-09-12] MEDS: DOXAZOSIN MESYLATE 4 MG TABLET 8 MG PO ×2 (08:53→21:30)
--- NOTE | 2020-09-12 10:20 | PM.IMPN ---
Progress Note: A&P Assessment and Plan (1) Acute exacerbation of CHF (congestive heart failure): Code(s): I50.9 - Heart failure, unspecified Status: Acute Assessment and Plan: Patient with tachypnea and hypoxia, found to have Mild Diastolic CHF exacerbation on CXR and CTA Chest. Start IV Lasix 40 mg BID Monitor renal output, fluid status. (2) Atrial fibrillation with RVR: Code(s): I48.91 - Unspecified atrial fibrillation Status: Acute Assessment and Plan: Patient had a cardiac ablation that has been successful; also on Eliquis for anticoagulation and metoprolol for rate control Patient went into Afib with RVR 09/11/2020 and was moved to [facility] on Tele with Roxann Rangel. Cardiology has been consulted for further evaluation. Continue Eliquis at this time. If patient continues to have falls and shows no improvement with therapy, he will have to have his anticoagulation to be readdressed as this puts him at increased of bleeding (3) Sepsis: Code(s): A41.9 - Sepsis, unspecified organism Status: Acute Assessment and Plan: Patient was found to be septic with fever, tachycardia, tachypnea, and hypoxia. A chest x-ray showing possible pneumonia, we have been treating for UTI but urine cultures were negative. Antibiotics were adjusted her broader spectrum of coverage for pneumonia COVID was negative Antibiotics started, IV ceftriaxone, vancomycin and Flagyl Recheck blood cultures, both sets from 09/07 and 09/09/2020 are pending with no abnormality at this time He has not had a fever in 48 hours, he still has tachycardia, with some improved tachypnea. He is now on Room Air. Leukocytosis has normalized. Continue monitoring vital signs with Tylenol as needed for fever. IV antibiotics. (4) Acute and chronic respiratory failure with hypoxia: Code(s): J96.21 - Acute and chronic respiratory failure with hypoxia Status: Acute Assessment and Plan: Patient was found to have hypoxia last night and was placed on 2 L of oxygen. He also had fevers, tachycardia, tachypnea which meet criteria for sepsis. Chest x-ray showed possible pneumonia to mid and left lower lung gonzales. ABG showed respiratory alkalosis He was started on broader spectrum antibiotics for coverage of pneumonia, IV Flagyl, Vanco, and ceftriaxone COVID was negative Patient's respiratory status has improved, now on room air. CTA of the patient's chest showed no PE, Mild pulmonary edema. Small pleural effusions. Cardiomegaly. No DVT on Venous Dopplers. Continue antibiotics at this time Continue monitoring respiratory status, wean oxygen as needed (5) UTI (urinary tract infection): Code(s): N39.0 - Urinary tract infection, site not specified Status: Acute Assessment and Plan: UA suggestive of UTI. Given one dose of Rocephin on 09/07. Briefly placed on Zosyn and vanc overnight due to concerns of scrotal/perineal infection although patient evaluated by Urology and felt this is less likely; transitioned back to Rocephin. Urine cultures came back showing E coli. Patient should have his last dose of IV Rocephin on 09/13/2020 for treatment of UTI. (6) Rhabdomyolysis: Qualifiers: Encounter type: subsequent encounter Rhabdomyolysis type: traumatic Qualified Code(s): T79.6XXD - Traumatic ischemia of muscle, subsequent encounter Code(s): M62.82 - Rhabdomyolysis Status: Acute Assessment and Plan: CK appears to be improving today.. Patient reportedly was on toilet for extended amount of time, as well as, falls at home CK appears normal and he is no longer dehydrated appearing Monitor renal function (7) Acute renal failure
[2020-09-12] MEDS: predniSONE 5 MG TABLET PO (12:05)
--- NOTE | 2020-09-12 12:41 | PM.CNCAR ---
Assessment and Plan Assessment and plan (1) Atrial fibrillation with RVR: Code(s): I48.91 - Unspecified atrial fibrillation Status: Acute Assessment and Plan: Will increase his diltiazem drip to 10 milligrams/hour. (2) Acute exacerbation of CHF (congestive heart failure): Code(s): I50.9 - Heart failure, unspecified Status: Acute Assessment and Plan: Continue IV furosemide. (3) Hypertension: Code(s): I10 - Essential (primary) hypertension Status: Chronic Assessment and Plan: Above goal (4) Rhabdomyolysis: Qualifiers: Encounter type: subsequent encounter Rhabdomyolysis type: traumatic Qualified Code(s): T79.6XXD - Traumatic ischemia of muscle, subsequent encounter Code(s): M62.82 - Rhabdomyolysis Status: Acute Assessment and Plan: Improved (5) Multiple falls: Code(s): R29.6 - Repeated falls Status: Acute (6) Generalized weakness: Code(s): R53.1 - Weakness Status: Acute (7) Joint swelling: Code(s): M25.40 - Effusion, unspecified joint Status: Acute Assessment and Plan: Regarding his joint swelling generalized weakness and multiple falls, I am going to check an ESR as well as a CRP. Will also order an KATIE panel. History of Present Illness History of Present Illness Consult date/time: 09/12/20 12:41 Requesting physician: Agnes Trujillo PA-C Consult reason: atrial fibrillation Reason For Visit: FALLS, UTI, DEHYDRATION, candidal intertrigo Narrative: Date of service 09/12/20 History: Patient is a 70-year-old male who presents to the emergency department after frequent falls. Will past couple weeks he has been falling frequently. He fell a bathroom and had difficulty even getting out of his bathroom. He also has diffuse joint pain. He has had progressively worsening weakness. Follows with Dr. Valdez and has a history of paroxysmal atrial fibrillation. Cardiology consultation was requested because he was found to be back in atrial fibrillation with rapid ventricular response. He was transferred to IMU started on diltiazem drip. He denies any chest pain. He does have shortness of breath. Does have some swelling. Denies any syncope, presyncope. Admits to paroxysmal nocturnal dyspnea but no palpitations. He does describe generalized weakness. Review of Systems Review of Systems: All systems reviewed & are unremarkable except as noted in HPI and below Constitutional: Constitutional: Reports body ache(s) and Reports weakness Eyes: Eyes: Denies blurry vision ENT: Denies Normal hearing present and Denies epistaxis Cardiovascular: Cardiovascular: Denies chest pain Respiratory: Respiratory: Reports dyspnea Gastrointestinal: Gastrointestinal: Denies abdominal pain Genitourinary: Genitourinary: Denies dysuria and Denies urinary frequency Musculoskeletal: Musculoskeletal: Reports back pain, Reports arthralgias, Reports joint swelling and Reports neck pain Integumentary/Breasts: Skin/Breast: Denies dry skin Neurologic: Denies headache(s) Psychiatric: Psychiatric: Denies anxiety and Denies confusion Endocrine: Endocrine: Denies excessive sweating Hematologic/Lymphatic: Hematologic/Lymphatic: Denies easy bleeding and Denies easy bruising Allergic/Immunologic: Allergic/Immunologic: Denies GI upset with certain foods PMFSH Past Medical History Medical History Atrial fibrillation Treated with ablation currently on anticoagulation. BPH (benign prostatic hyperplasia) Chronic anemia Hyperlipidemia Hypertension Surgical History Surgical History H/O heart bypass surgery 3 way bypass H/O hernia repair Right lower abdomen with mesh History of cardiac radiofrequency ablation History of knee replacement Family History Family History (Reviewed 09/12/20 @
[2020-09-12 14:00] LABS: Erythrocyte Sedimentation Rate > 140 mm/hr (0-20)
[2020-09-12] MEDS: ACETAMINOPHEN 325 MG TABLET 650 MG PO (14:00)
[2020-09-12 14:02] LABS: CRP 28.5 mg/dL (<1.0)
[2020-09-12 15:48] LABS: Anion Gap 9 mmol/L (8-16); Blood Urea Nitrogen 40 mg/dL (9-20); Calcium 7.8 mg/dL (8.4-10.2); Carbon Dioxide 19 mmol/L (22-30); Chloride 101 mmol/L (98-107); Estimated CRCL calculation 49 ml/min; Estimated Glomerular Filt Rate 43; Glucose 136 mg/dL (75-110); Potassium 3.5 mmol/L (3.4-5.0); Sodium 129 mmol/L (137-145)
[2020-09-12] MEDS: FERROUS SULFATE 324 MG TABLET PO (17:07)
[2020-09-13] VITALS (21 sets, daily range): BP systolic 127–143; BP diastolic 57–76; PULSE 94–123; RESP 24–32; TEMP 36.2–36.9; O2SAT 93–97
[2020-09-13] MEDS: metroNIDAZOLE 500 MG/ISO 100ML 500 MG/100 ML BAG 100 MG IVPB ×3 (00:50→13:01)
[2020-09-13 04:30] LABS: Basophils Percent Auto 0.2 % (0.2-1.2); Eosinophils Absolute Auto 0.1 K/mm3 (0-0.3); Eosinophils Percent Auto 0.5 % (0-4.4); Hematocrit 27.4 % (42.0-52.0); Hemoglobin 8.5 g/dL (14.0-18.0); Immature Granulocyte Absolute 0.28 K/mm3 (0.00-0.031); Immature Granulocyte Percent A 2.7 % (0-0.5); Lymphocytes Percent Auto 9.6 % (18.3-44.2); Mean Corpuscular Hemoglobin 23.2 pg (26-34); Mean Corpuscular Volume 74.7 fl (80-100); Mean Platelet Volume 10.9 fl (7.4-10.4); Monocytes Absolute Auto 0.6 K/mm3 (0.1-0.6); Monocytes Percent Auto 5.4 % (2.6-8.5); Neutrophils Absolute Auto 8.5 K/mm3 (1.3-6.7); Neutrophils Percent Auto 81.6 % (45.5-73.1); Platelet Count Result 240 k/mm3 (150-375); Red Blood Count 3.67 M/mm3 (4.6-6.20); White Blood Count 10.4 K/mm3 (4.5-10.0)
[2020-09-13 05:29] LABS: Alanine Aminotransferase 24 U/L (4-50); Albumin Level 2.7 g/dL (3.5-5.1); Alkaline Phosphatase 80 U/L (38-126); Anion Gap 10 mmol/L (8-16); Aspartate Amino Transferase 26 U/L (17-59); Bilirubin,Total 0.3 mg/dL (0.2-1.3); Blood Urea Nitrogen 39 mg/dL (9-20); CRP 23.3 mg/dL (<1.0); Calcium 7.8 mg/dL (8.4-10.2); Carbon Dioxide 20 mmol/L (22-30); Chloride 101 mmol/L (98-107); Estimated CRCL calculation 53 ml/min; Estimated Glomerular Filt Rate 46; Glucose 110 mg/dL (75-110); Potassium 3.5 mmol/L (3.4-5.0); Sodium 131 mmol/L (137-145)
[2020-09-13] MEDS: TAMSULOSIN HCL 0.4 MG CAPSULE PO ×2 (09:55→21:28)
[2020-09-13] MEDS: FUROSEMIDE INJ 40 MG/4 ML VIAL IV PUSH ×2 (09:56→16:55)
[2020-09-13] MEDS: OXYBUTYNIN CHLORIDE 5 MG TABLET PO (09:56)
[2020-09-13] MEDS: DOXAZOSIN MESYLATE 4 MG TABLET 8 MG PO ×2 (09:56→21:27)
[2020-09-13] MEDS: lisinopriL 20 MG TABLET PO (09:56)
[2020-09-13] MEDS: ATORVASTATIN 10 MG TABLET PO (09:56)
[2020-09-13] MEDS: APIXABAN 5 MG TABLET PO ×2 (09:56→16:55)
[2020-09-13] MEDS: FERROUS SULFATE 324 MG TABLET PO ×2 (09:57→16:55)
[2020-09-13] MEDS: predniSONE 5 MG TABLET PO (09:57)
--- NOTE | 2020-09-13 12:13 | PM.PNCARD ---
Progress Note: A&P Additional Plan 70-year-old man with: Coronary artery disease doing well with respect to that following surgical revascularization in 2014 History of atrial fibrillation which has not been well tolerated in the past for this gentleman he underwent couple of cardioversion procedures and after that a pulmonary venous isolation in July of 2019. Now that he has a recurrence I am going to attempt to resume amiodarone in hopes of restoring sinus rhythm again. I will stop his diltiazem and shift into IV amiodarone and observe this in the next 24-48 hours. If he persists in AFib I would like to attempt a cardioversion early next week Bhavesh Valdez MD [facility] Subjective Date/time seen: Date of service: 09/13/20 12:13 Interval history: 70-year-old gentleman with: History of coronary artery disease with multivessel surgical revascularization in October of 2014. He also has a history of paroxysmal atrial fibrillation with recurrence following cardioversion and symptomatic with exertional dyspnea. Despite repeated cardioversion he had recurrences and underwent successfully pulmonary venous isolation in July of 2019 at [facility]. The patient was seen in my office in August of this year and was in sinus rhythm. He is now hospitalized with weakness and falling. He is back in atrial fibrillation diltiazem was started yesterday for heart rate control. There is no electrocardiogram done on admission that I can see that demonstrates that he was in sinus rhythm on admission. Nonetheless when I saw him in the office about 1 month ago he was in sinus rhythm. Because of this history I would like to try to make an attempt at restoring sinus rhythm again. Amiodarone was discontinued by his kennel operator in April of 2020 in hopes that he would not have a recurrence following pulmonary venous isolation. Patient has no specific complaints today of a cardiac nature Exam Const: General: comfortable and no acute distress Other: Overweight elderly gentleman supine in bed no distress HENMT: Mouth: Yes moist mucous membranes Eyes: Sclera: sclerae normal Pupils: Equal, round and reactive pupils present Neck: Neck: supple and no JVD Thyroid: thyroid normal Resp: Effort & Inspection: normal respiratory effort Auscultation: clear to auscultation bilaterally Cardio: Rhythm: abnormal rhythm irregularly irregular GI: GI Palp: Yes Soft to palpation Auscultation: normal bowel sounds Skin: General skin exam: normal color Neuro: Cognition (Neuro): normal cognition Extrem: Other: Mild bipedal edema Objective Data Vital Signs Vital Signs: Vital Signs - 24 hr 09/12/20 12:40 09/12/20 14:00 09/12/20 15:34 Temperature 36.9 C Pulse Rate 116 H 106 H 103 H Respiratory Rate 28 H Blood Pressure 123/60 Pulse Oximetry 96 09/12/20 16:00 09/12/20 18:00 09/12/20 20:00 Temperature Pulse Rate 108 H 98 97 Respiratory Rate 24 H Blood Pressure Pulse Oximetry 97 09/12/20 21:31 09/12/20 22:00 09/13/20 00:00 Temperature 36.1 C L 36.2 C L Pulse Rate 77 98 104 H Respiratory Rate 24 H 24 H Blood Pressure 156/64 H 135/63 Pulse Oximetry 97 97 09/13/20 02:00 09/13/20 03:49 09/13/20 04:00 Temperature 36.6 C Pulse Rate 94 104 H 104 H Respiratory Rate 26 H 26 H Blood Pressure 139/59 L Pulse Oximetry 96 96 09/13/20 06:00 09/13/20 08:00 09/13/20 09:04 Temperature 36.4 C L Pulse Rate 104 H 108 H 110 H Respiratory Rate 30 H Blood Pressure 139/59 L 143/76 H Pulse Oximetry 96 09/13/20 10:00 Temperature Pulse Rate 112 H Respiratory Rate Blood Pressure Pulse Oximetry Intake/Output Intake/Output: Intake & Output 09/10/20 09/11/20 09/12/20 09/13/20 23:59 23:59 23:59 23:59 Intake Total 2885 2291 1755 980 Output Total 4275 682 6072 1650 Balance 1885 2585 -1095 -670 Meds/Results Medications: Active Medications Generic Name Dos
[2020-09-13] MEDS: AMIODARONE 150 MG/D5W 100 ML 150 MG/100 ML BAG 600 MG IV CONT (13:01)
[2020-09-13] MEDS: AMIODARONE 360 MG/D5W 200 ML 360 MG/200 ML BAG 33.33 MG IV CONT (13:01)
--- NOTE | 2020-09-13 13:22 | WPDNEURCNPN ---
Assessment and Plan Assessment and plan (1) Generalized weakness: Code(s): R53.1 - Weakness Status: Acute (2) Atrial fibrillation with RVR: Code(s): I48.91 - Unspecified atrial fibrillation Status: Acute (3) Acute exacerbation of CHF (congestive heart failure): Code(s): I50.9 - Heart failure, unspecified Status: Acute Additional Plan history of frequent falls at present being treated for the atrial fibrillation will have the physical therapy evaluation to see if he needs further rehab once he is able to and allowed by the process safety engineering technologist Consult date: 09/13/20 Time Seen: 13:00 HPI: Justus Rodriguez is a 70 year old male admitted to the hospital subsequent to falls at home hurting his left knee and the right hand he was seen in the [facility] on 01 of September advised to follow up with his physician patient has been on Eliquis for atrial fibrillation he was found to have 80 minutes assist the scrotum, swollen right hand, [place], [place] [address] and UTI for which he was started on ceftriaxone and subsequently switched over to Zosyn. Patient does have ongoing history of atrial fibrillation, benign prostatic hypertrophy, hypertension, and chronic anemia. He has undergone 3 vessel bypass surgery hernia repair radiofrequency ablation and knee replacements and also reportedly never smoker. Evaluation include cardiomegaly with interstitial edema on chest x-ray the, echocardiogram with severely enlarged left atrium moderately enlarged right atrium mild regurgitation of different valves negative CTA of the chest negative Doppler venous study ultrasound of lower extremities E coli culture positive in the urine all blood cultures negative, cardiology consultation for atrial fibrillation with treatment accordingly including diltiazem and most recently diltiazem is being stopped and he is being given amiodarone intravenously for atrial fibrillation as per Dr. Valdez Review of Systems Review of Systems: All systems reviewed & are unremarkable except as noted in HPI and below PMFSH Past Medical History Medical History Atrial fibrillation Treated with ablation currently on anticoagulation. BPH (benign prostatic hyperplasia) Chronic anemia Hyperlipidemia Hypertension Surgical History Surgical History H/O heart bypass surgery 3 way bypass H/O hernia repair Right lower abdomen with mesh History of cardiac radiofrequency ablation History of knee replacement Family History Family History Sibling Atrial fibrillation Father Heart disease Mother Congestive heart failure Social History Social History Social History: The patient never or had any children. 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 He does not have a durable power environmental attorney for healthcare. He desires to be a full code. The patient stated that he never smoked rarely uses alcohol does not use any marijuana or illicit drugs. Smoking status: Never smoker Alcohol intake: former Substance use: never Substance use type: does not use Living arrangements: alone Occupation/Education: occupation Gender identity (if verbalized by the patient): Male Spiritual care concerns: No Meds Home Medications and Allergies Home Medications Medication Instructions Recorded Confirmed Type acetaminophen-codeine 1 tablet PO HS PRN #10 tablet 09/01/20 09/07/20 Rx apixaban [Eliquis] 5 mg PO BID 09/01/20 09/07/20 History atorvastatin 10 mg PO DAILY 09/01/20 09/07/20 History doxazosin 8 mg PO BID 09/01/20 09/07/20 History furosemide 20 mg PO TID 09/01/20 09/07/20 History lisinopril 20 mg PO DAILY 09/01/20 09/07/20 History metoprolol tartrate 50 mg PO BID 09/01/20 09/07/20 History tamsulo
--- NOTE | 2020-09-13 15:56 | PM.IMPN ---
Progress Note: A&P Assessment and Plan (1) Joint swelling: Code(s): M25.40 - Effusion, unspecified joint Status: Acute Assessment and Plan: Noted to have generalized weakness and joint swelling. Some joints are red and warm. Low likelihood of having a septic joint with negative blood cultures being on broad-spectrum antibiotics, but differential includes polyarticular septic arthritis, verses lupus, verses gout verses other autoimmune abnormality. Will order ultrasound-guided aspiration of right knee, right wrist, left PIP joint and do further evaluation workup Also ordering KATIE, rheumatoid factor, Anca, CK, uric acid, and bilateral x-rays of his hands He patient denies any history of autoimmune disease or similar flares like this. Oral prednisone was discontinued at this time. Will reassess the patient tomorrow and continue monitoring his pain and discomfort with p.r.n. medications. (2) Acute exacerbation of CHF (congestive heart failure): Code(s): I50.9 - Heart failure, unspecified Status: Acute Assessment and Plan: Patient with tachypnea and hypoxia, found to have Mild Diastolic CHF exacerbation on CXR and CTA Chest. He is diuresing well with IV Lasix. Feeling better at this time and does not appear to be tachypneic. Continue IV Lasix 40 mg BID Monitor renal output, fluid status. (3) Atrial fibrillation with RVR: Code(s): I48.91 - Unspecified atrial fibrillation Status: Acute Assessment and Plan: Patient had a cardiac ablation that has been successful; also on Eliquis for anticoagulation and metoprolol for rate control Patient went into Afib with RVR 09/11/2020 and was moved to [facility] on Tele with Cardizem Drip. Cardiology has been consulted who initially increase Cardizem drip to 10 mg but now the patient is currently on an amiodarone drip. Cardiology may consider a cardioversion on Tuesday if he is still in AFib with RVR. Continue Eliquis at this time. If patient continues to have falls and shows no improvement with therapy, he will have to have his anticoagulation to be readdressed as this puts him at increased of bleeding (4) Generalized weakness: Code(s): R53.1 - Weakness Status: Acute Assessment and Plan: On reason for underlying weakness to rule out gout, autoimmune disease, versus infection. Continue work with physical and occupational therapy. (5) Sepsis: Code(s): A41.9 - Sepsis, unspecified organism Status: Acute Assessment and Plan: Patient was found to be septic with fever, tachycardia, tachypnea, and hypoxia. A chest x-ray showing possible pneumonia, we have been treating for UTI but urine cultures were negative. Antibiotics were adjusted her broader spectrum of coverage for pneumonia COVID was negative The patient has received 6 days of IV ceftriaxone for treatment of UTI, will continue for 1 more day then discontinue. At this time I will discontinue IV vancomycin and Flagyl which were given for 3 days. Patient CTA of his chest did not show any underlying pneumonia so we do not need broad-spectrum antibiotics at this time. Pulse sets of blood cultures are still negative to date. He has not had a fever in 3 days, he is still in AFib with RVR and tachypnea has improved. Slight leukocytosis most likely secondary to prednisone. Continue monitoring vital signs with Tylenol as needed for fever. IV antibiotics. (6) Acute and chronic respiratory failure with hypoxia: Code(s): J96.21 - Acute and chronic respiratory failure with hypoxia Status: Acute Assessment and Plan: Patient was found to have hypoxia last night and was placed on 2 L of oxygen. He also had fevers, tachycardia, tachypnea whic
[2020-09-13 17:25] LABS: Creatine Kinase 261 U/L (55-170); Uric Acid 12.4 mg/dL (3.5-8.5)
[2020-09-13 17:35] LABS: Rheumatoid Factor 28.3 IU/ML (<12)
[2020-09-13] MEDS: AMIODARONE 360 MG/D5W 200 ML 360 MG/200 ML BAG 16.67 MG IV CONT (19:45)
[2020-09-14] VITALS (18 sets, daily range): BP systolic 80–155; BP diastolic 34–96; PULSE 108–129; RESP 18–28; TEMP 35.5–36.6; O2SAT 93–99
[2020-09-14 04:26] LABS: Basophils Percent Auto 0.2 % (0.2-1.2); Eosinophils Absolute Auto 0.1 K/mm3 (0-0.3); Eosinophils Percent Auto 0.6 % (0-4.4); Hematocrit 28.6 % (42.0-52.0); Hemoglobin 8.9 g/dL (14.0-18.0); Immature Granulocyte Absolute 0.45 K/mm3 (0.00-0.031); Immature Granulocyte Percent A 3.7 % (0-0.5); Lymphocytes Absolute Auto 1.09 K/mm3 (0.9-3.2); Lymphocytes Percent Auto 8.8 % (18.3-44.2); Mean Corpuscular HGB Conc 31.1 g/dl (32-36); Mean Corpuscular Hemoglobin 23.2 pg (26-34); Mean Corpuscular Volume 74.7 fl (80-100); Mean Platelet Volume 10.8 fl (7.4-10.4); Monocytes Absolute Auto 0.7 K/mm3 (0.1-0.6); Monocytes Percent Auto 5.4 % (2.6-8.5); Neutrophils Percent Auto 81.3 % (45.5-73.1); Platelet Count Result 263 k/mm3 (150-375); Red Blood Count 3.83 M/mm3 (4.6-6.20); Red Cell Distribution Width 16.4 % (11.5-14.5); White Blood Count 12.3 K/mm3 (4.5-10.0)
[2020-09-14 04:47] LABS: Alanine Aminotransferase 19 U/L (4-50); Albumin Level 2.8 g/dL (3.5-5.1); Alkaline Phosphatase 75 U/L (38-126); Anion Gap 8 mmol/L (8-16); Aspartate Amino Transferase 23 U/L (17-59); Bilirubin,Total 0.3 mg/dL (0.2-1.3); Blood Urea Nitrogen 41 mg/dL (9-20); Calcium 7.9 mg/dL (8.4-10.2); Carbon Dioxide 21 mmol/L (22-30); Chloride 101 mmol/L (98-107); Estimated CRCL calculation 56 ml/min; Estimated Glomerular Filt Rate 50; Glucose 114 mg/dL (75-110); Potassium 3.3 mmol/L (3.4-5.0); Sodium 130 mmol/L (137-145)
[2020-09-14] MEDS: ACETAMINOPHEN 325 MG TABLET 650 MG PO (06:18)
[2020-09-14] MEDS: TAMSULOSIN HCL 0.4 MG CAPSULE PO ×2 (08:34→21:05)
[2020-09-14] MEDS: lisinopriL 20 MG TABLET PO (08:34)
[2020-09-14] MEDS: OXYBUTYNIN CHLORIDE 5 MG TABLET PO (08:34)
[2020-09-14] MEDS: FERROUS SULFATE 324 MG TABLET PO ×2 (08:35→17:02)
[2020-09-14] MEDS: APIXABAN 5 MG TABLET PO ×2 (08:35→17:02)
[2020-09-14] MEDS: ATORVASTATIN 10 MG TABLET PO (08:35)
[2020-09-14] MEDS: DOXAZOSIN MESYLATE 4 MG TABLET 8 MG PO ×2 (08:35→21:05)
[2020-09-14] MEDS: FUROSEMIDE INJ 40 MG/4 ML VIAL IV PUSH ×2 (08:35→17:02)
[2020-09-14] MEDS: POTASSIUM CHLORIDE 20 MEQ TABLET 40 MEQ PO (08:39)
--- NOTE | 2020-09-14 10:57 | PM.PNCARD ---
Progress Note: A&P Additional Plan 70-year-old man with: Recurrent atrial fibrillation. Patient resumed on amiodarone intravenously yesterday which was stopped about 4 months ago in hopes that his pulmonary vein isolation would prevent recurrences. Patient now in persistent recurrent atrial fibrillation. Will anticipate DC cardioversion tomorrow unless he converts with intravenous amiodarone prior to tomorrow morning. Bhavesh Valdez MD [facility] Subjective Date/time seen: 09/14/20 10:57 Interval history: Follow-up visit for recurrent atrial fibrillation in this 70-year-old man Previous history of multivessel coronary disease bypass grafting in 2015 Patient has had atrial fibrillation shortly after surgery has been cardioverted a couple of times and underwent pulmonary vein isolation in 2019. Patient feels reasonably well this morning still at bed rest has been found to have a polyarticular arthritis either rheumatoid arthritis or gout is suspected clinically. Exam Const: General: comfortable and no acute distress HENMT: Mouth: Yes moist mucous membranes Eyes: Sclera: sclerae normal Pupils: Equal, round and reactive pupils present Neck: Neck: supple and no JVD Thyroid: thyroid normal Resp: Effort & Inspection: normal respiratory effort Auscultation: clear to auscultation bilaterally Cardio: Rhythm: abnormal rhythm irregularly irregular GI: GI Palp: Yes Soft to palpation Auscultation: normal bowel sounds Skin: General skin exam: normal color Neuro: Cognition (Neuro): normal cognition Extrem: Other: Multiple joint inflammation with some deformities in the fingers. Objective Data Vital Signs Vital Signs: Vital Signs - 24 hr 09/13/20 12:00 09/13/20 13:00 09/13/20 13:01 Temperature 36.7 C Pulse Rate 108 H 103 H 108 H Respiratory Rate 32 H Blood Pressure 129/59 L Pulse Oximetry 95 09/13/20 14:00 09/13/20 16:00 09/13/20 16:05 Temperature Pulse Rate 105 H 109 H Respiratory Rate Blood Pressure Pulse Oximetry 93 09/13/20 16:34 09/13/20 18:00 09/13/20 19:45 Temperature 36.9 C Pulse Rate 107 H 123 H 103 H Respiratory Rate 24 H Blood Pressure 130/57 L 136/61 Pulse Oximetry 97 09/13/20 19:48 09/13/20 20:00 09/13/20 22:00 Temperature 36.3 C L Pulse Rate 103 H 103 H 105 H Respiratory Rate 26 H 26 H Blood Pressure 136/61 Pulse Oximetry 93 93 09/13/20 23:46 09/14/20 00:00 09/14/20 02:00 Temperature 36.4 C L Pulse Rate 109 H 109 H 109 H Respiratory Rate 24 H 24 H Blood Pressure 127/75 Pulse Oximetry 95 95 09/14/20 04:00 09/14/20 06:00 09/14/20 08:00 Temperature 36.5 C Pulse Rate 121 H 108 H 110 H Respiratory Rate 26 H Blood Pressure 148/61 H Pulse Oximetry 97 93 09/14/20 08:28 Temperature 36.4 C Pulse Rate 111 H Respiratory Rate 28 H Blood Pressure 126/51 L Pulse Oximetry 97 Intake/Output Intake/Output: Intake & Output 09/11/20 09/12/20 09/13/20 09/14/20 23:59 23:59 23:59 23:59 Intake Total 3485 1755 2515.5 343 Output Total 900 2850 2800 325 Balance 2585 -1095 -284.5 18 Meds/Results Medications: Active Medications Generic Name Dose Route Start Last Admin Trade Name Freq PRN Reason Stop Dose Admin Acetaminophen 650 mg 09/09/20 08:01 09/14/20 06:18 Acetaminophen 325 Mg Tablet PO 650 mg Q4H PRN Administration Mild Pain (1-3) or Fever Apixaban 5 mg 09/08/20 09:00 09/14/20 08:35 Apixaban 5 Mg Tablet PO 5 mg BID TERRENCE Administration Atorvastatin Calcium 10 mg 09/08/20 09:00 09/14/20 08:35 Atorvastatin 10 Mg Tablet PO 10 mg DAILY TERRENCE Administration Doxazosin Mesylate 8 mg 09/08/20 09:00 09/14/20 08:35 Doxazosin Mesylate 4 Mg Tablet PO 8 mg Q12HR TERRENCE Administration Ferrous Sulfate 324 mg 09/12/20 17:00 09/14/20 08:35 Ferrous Sulfate 324 Mg Tablet PO 324 mg BIDWM TERRENCE Administration Furosemide 20 mg 09/11/20 09:55 09/11/20 17:18 Furosemide
[2020-09-14] MEDS: AMIODARONE 360 MG/D5W 200 ML 360 MG/200 ML BAG 16.67 MG IV CONT ×2 (11:47→23:45)
--- NOTE | 2020-09-14 11:54 | PM.IMPN ---
Progress Note: A&P Assessment and Plan (1) Joint swelling: Code(s): M25.40 - Effusion, unspecified joint Status: Acute Assessment and Plan: Noted to have generalized weakness and joint swelling. Some joints are red and warm. Low likelihood of having a septic joint with negative blood cultures being on broad-spectrum antibiotics, but differential includes polyarticular septic arthritis, verses lupus, verses gout verses other autoimmune abnormality. Uric Acid elevated ESR >140 inflammatory marker CRP is decreasing day by day RF elevated at 28 will order Anticyclic Citrul Peptide and if positive higher likelihood of Rheumatoid Arthritis. CK Slightly more elevated than a few days prior Bilateral x-rays of his hands: Right Hand Erosions at ulnar styloid and neck of third proximal phalanx, most likely gout. Polyarticular osteoarthritis. Left Hand XR Juxta-articular erosions at second distal interphalangeal joint and fourth and fifth proximal interphalangeal joints with soft tissue swelling, consistent with inflammatory arthropathy, most likely gout. He patient denies any history of autoimmune disease or similar flares like this. KATIE Pending ANCA Pending Will order ultrasound-guided aspiration of right knee, right wrist, left PIP joint and do further evaluation workup Will order Solu-medrol 60 mg once for decrease in his inflammation and then oral prednisone taper after starting tomorrow. Will reassess the patient tomorrow and continue monitoring his pain and discomfort with p.r.n. medications. (2) Acute exacerbation of CHF (congestive heart failure): Code(s): I50.9 - Heart failure, unspecified Status: Acute Assessment and Plan: Patient with tachypnea and hypoxia, found to have Mild Diastolic CHF exacerbation on CXR and CTA Chest. He is diuresing well with IV Lasix. Feeling better at this time and does not appear to be tachypneic. Continue IV Lasix 40 mg BID Monitor renal output, fluid status. (3) Atrial fibrillation with RVR: Code(s): I48.91 - Unspecified atrial fibrillation Status: Acute Assessment and Plan: Patient had a cardiac ablation that has been successful; also on Eliquis for anticoagulation and metoprolol for rate control Patient went into Afib with RVR 09/11/2020 and was moved to IMU on Tele with Cardizem Drip. Cardiology has been consulted who initially increase Cardizem drip to 10 mg but now the patient is currently on an amiodarone drip. Cardiology may consider a cardioversion on Tuesday if he is still in AFib with RVR. Continue Eliquis at this time. If patient continues to have falls and shows no improvement with therapy, he will have to have his anticoagulation to be readdressed as this puts him at increased of bleeding (4) Generalized weakness: Code(s): R53.1 - Weakness Status: Acute Assessment and Plan: On reason for underlying weakness to rule out gout, autoimmune disease, versus infection. Continue work with physical and occupational therapy. (5) Sepsis: Code(s): A41.9 - Sepsis, unspecified organism Status: Acute Assessment and Plan: Patient was found to be septic with fever, tachycardia, tachypnea, and hypoxia. A chest x-ray showing possible pneumonia, we have been treating for UTI but urine cultures were negative. Antibiotics were adjusted her broader spectrum of coverage for pneumonia COVID was negative The patient has received 6 days of IV ceftriaxone for treatment of UTI, will continue for 1 more day then discontinue. At this time I will discontinue IV vancomycin and Flagyl which were given for 3 days. Patient CTA of his chest did not show any underlying pneumonia so we do not need broad-spectrum antibiotics at this time. Pulse sets of blo
[2020-09-14] MEDS: methylPREDNISolone SOD SUCC 125 MG VIAL 60 MG IV PUSH (17:03)
[2020-09-14 19:00] LABS: Source Synovial Fluid Synovial fluid
[2020-09-14 19:01] LABS: Appearance Synovial Fluid Cloudy (Clear); Color Synovial Fluid Other (Colorless); Nucleated Cell Synovial Fluid 4649 /uL (0-200); RBC Synovial Fluid 10673 /uL (0-0)
[2020-09-14 19:02] LABS: Lymphocytes Synovial Fluid 1 %; Macrophages Synovial Fluid 6 %; Neutrophils Synovial Fluid 93 % (0-25)
[2020-09-14 19:08] LABS: Crystals Synovial Fluid Many Msu (None Seen)
[2020-09-15] VITALS (21 sets, daily range): BP systolic 127–180; BP diastolic 49–99; PULSE 71–121; RESP 12–22; TEMP 36.1–36.7; O2SAT 94–100
[2020-09-15 05:34] LABS: Basophils Percent Auto 0.1 % (0.2-1.2); Hematocrit 29.9 % (42.0-52.0); Immature Granulocyte Percent A 4.9 % (0-0.5); Lymphocytes Absolute Auto 0.65 K/mm3 (0.9-3.2); Lymphocytes Percent Auto 6.4 % (18.3-44.2); Mean Corpuscular HGB Conc 30.1 g/dl (32-36); Mean Corpuscular Hemoglobin 22.6 pg (26-34); Mean Corpuscular Volume 75.1 fl (80-100); Monocytes Absolute Auto 0.1 K/mm3 (0.1-0.6); Monocytes Percent Auto 1.4 % (2.6-8.5); Neutrophils Absolute Auto 8.8 K/mm3 (1.3-6.7); Neutrophils Percent Auto 87.2 % (45.5-73.1); Platelet Count Result 265 k/mm3 (150-375); Red Blood Count 3.98 M/mm3 (4.6-6.20); Red Cell Distribution Width 16.9 % (11.5-14.5); White Blood Count 10.1 K/mm3 (4.5-10.0)
[2020-09-15 06:08] LABS: Anion Gap 7 mmol/L (8-16); Blood Urea Nitrogen 44 mg/dL (9-20); CRP 13.5 mg/dL (<1.0); Carbon Dioxide 21 mmol/L (22-30); Chloride 104 mmol/L (98-107); Estimated CRCL calculation 56 ml/min; Estimated Glomerular Filt Rate 50; Glucose 145 mg/dL (75-110); Sodium 132 mmol/L (137-145)
[2020-09-15] MEDS: APIXABAN 5 MG TABLET PO ×2 (08:52→17:21)
[2020-09-15] MEDS: DOXAZOSIN MESYLATE 4 MG TABLET 8 MG PO ×2 (08:52→20:39)
[2020-09-15] MEDS: lisinopriL 20 MG TABLET PO (08:53)
--- NOTE | 2020-09-15 08:56 | WPDMODSED ---
Moderate Sedation Note-Pt Data Patient Data Diagnosis: Recurrent atrial fibrillation Present Complaint: Polyarticular arthritis Procedure to be performed/Plan: DC cardioversion Allergies Allergy/AdvReac Type Severity Reaction Status Date / Time No Known Allergies Allergy Verified 09/07/20 15:51 Home Medications Medication Instructions Recorded Confirmed Type acetaminophen-codeine 1 tablet PO HS PRN #10 tablet 09/01/20 09/07/20 Rx apixaban [Eliquis] 5 mg PO BID 09/01/20 09/07/20 History atorvastatin 10 mg PO DAILY 09/01/20 09/07/20 History doxazosin 8 mg PO BID 09/01/20 09/07/20 History furosemide 20 mg PO TID 09/01/20 09/07/20 History lisinopril 20 mg PO DAILY 09/01/20 09/07/20 History metoprolol tartrate 50 mg PO BID 09/01/20 09/07/20 History tamsulosin 0.4 mg PO BID 09/01/20 09/07/20 History oxybutynin chloride 5 mg PO DAILY 09/07/20 09/07/20 History Current Medications: Active Medications Acetaminophen (Acetaminophen 325 Mg Tablet) 650 mg PO Q4H PRN PRN Reason: Mild Pain (1-3) or Fever Last Admin: 09/14/20 06:18 Dose: 650 mg Documented by: Apixaban (Apixaban 5 Mg Tablet) 5 mg PO BID [facility] Last Admin: 09/15/20 08:52 Dose: 5 mg Documented by: Atorvastatin Calcium (Atorvastatin 10 Mg Tablet) 10 mg PO DAILY [facility] Last Admin: 09/14/20 08:35 Dose: 10 mg Documented by: Doxazosin Mesylate (Doxazosin Mesylate 4 Mg Tablet) 8 mg PO Q12HR [facility] Last Admin: 09/15/20 08:52 Dose: 8 mg Documented by: Ferrous Sulfate (Ferrous Sulfate 324 Mg Tablet) 324 mg PO BIDWM [facility] Last Admin: 09/14/20 17:02 Dose: 324 mg Documented by: Furosemide (Furosemide 20 Mg Tablet) 20 mg PO TID [facility] Last Admin: 09/11/20 17:18 Dose: 20 mg Documented by: Furosemide (Furosemide Inj 40 Mg/4 Ml Vial) 40 mg IV PUSH BID [facility] Last Admin: 09/14/20 17:02 Dose: 40 mg Documented by: Hydralazine HCl (Hydralazine Hcl 20 Mg/Ml Vial) 10 mg IV PUSH Q8H PRN PRN Reason: Blood Pressure - High Ceftriaxone Sodium/Dextrose (Rocephin 1 Gm/D5w 50 Ml) 1 gm in 50 mls @ 100 mls/hr IVPB Q24H [facility] Last Infusion: 09/14/20 17:33 Dose: Infused Documented by: Amiodarone HCl/Dextrose (Nexterone 360 Mg/D5w 200 Ml) 360 mg in 200 mls @ 16.667 mls/hr IV CONT .Q12H [facility] Last Admin: 09/14/20 23:45 Dose: 0.5 mg/min, 16.67 mls/hr Documented by: Lisinopril (Lisinopril 20 Mg Tablet) 20 mg PO DAILY [facility] Last Admin: 09/15/20 08:53 Dose: 20 mg Documented by: Lorazepam (Lorazepam Inj (*Crx) 2 Mg/Ml Vial) 0.5 mg IV PUSH Q6H PRN PRN Reason: Anxiety Last Admin: 09/11/20 20:12 Dose: 0.5 mg Documented by: Metoprolol Tartrate (Metoprolol Tartrate 50 Mg Tab) 50 mg PO Q12HR [facility] Last Admin: 09/11/20 20:13 Dose: 50 mg Documented by: Miconazole Nitrate (Miconazole 2% Antifungal Ointment 56 Gm) 1 applic TOPICAL Q12HR [facility] Last Admin: 09/14/20 21:06 Dose: 1 applic Documented by: Ondansetron HCl (Ondansetron Inj 4 Mg/2 Ml Vial) 4 mg IV PUSH Q4H PRN PRN Reason: Nausea Oxybutynin Chloride (Oxybutynin Chloride 5 Mg Tablet) 5 mg PO DAILY [facility] Last Admin: 09/14/20 08:34 Dose: 5 mg Documented by: Prednisone (Prednisone 10 Mg Tablet) 40 mg PO DAILY [facility]; Taper Stop: 09/23/20 08:59 Tamsulosin HCl (Tamsulosin Hcl 0.4 Mg Capsule) 0.4 mg PO Q12HR [facility] Last Admin: 09/14/20 21:05 Dose: 0.4 mg Documented by: Sedation/Anesthesia: No previous sedation/anesthesia problems (including family history). [facility] Past Medical History Medical History Atrial fibrillation Treated with ablation currently on anticoagulation. BPH (benign prostatic hyperplasia) Chronic anemia Hyperlipidemia Hypertension Surgical History Surgical History H/O heart bypass surgery 3 way bypass H/O hernia repair Right lower abdomen with mesh History of cardiac radiofrequency ablation History of knee replacement Family History Family History (Reviewed 09/13/20 @ 13:31 by Moustapha Queen
--- NOTE | 2020-09-15 09:43 | ECG_ITS ---
Measurements Intervals [place] Rate: 78 P: 82 [place]: 184 QRS: 49 QRSD: 113 T: 96 QT: 423 QTc: 484 Interpretive Statements SINUS RHYTHM INCOMPLETE LEFT BUNDLE BRANCH BLOCK BORDERLINE ST-T WAVE ABNORMALITY- HIGH LATERAL LEADS BASELINE ARTIFACT- I, II, III, AVL ABNORMAL ECG Electronically Signed On 09-15-2020 16:13:54 [employer] by Gentry Durand D.O.
--- NOTE | 2020-09-15 09:47 | P.PCNCC_ITS ---
Cardiac Cath Procedure Note Date of procedure:: 09/15/20 Performing physician:: Bhavesh Valdez MD Indication:: Recurrent atrial fibrillation Brief clinical history:: This is a 70-year-old patient with coronary disease who underwent bypass grafting several years ago. He also has a history of atrial fibrillation which has recurred. The patient underwent couple of cardioversion procedures in the past and in 2019 underwent a pulmonary vein isolation procedure at [facility]. Despite that he is back in atrial fib. Amiodarone was reinstituted over the weekend intravenously an attempt at restoring sinus rhythm electrically has been recommended for today. Procedure Procedure performed:: DC cardioversion Sedation/Medication given:: Intravenous propofol in aliquots total dosage of 70 mg given Estimated blood loss:: No blood loss Procedure note:: Patient was in the postabsorptive state placed in the supine position with defibrillator patches in the AP position. He was then given propofol in aliquots a total dosage of 70 mg provided excellent sedation. He was DC cardioverted with 200 joules in a synchronized fashion x1 shock restoring normal sinus rhythm. Findings:: Successful cardioversion as above Conclusion:: Successful DC cardioversion restoring sinus rhythm following amiodarone loading over the weekend using 200 joules x1 shock. Bhavesh Valdez MD [facility]
[2020-09-15] MEDS: FUROSEMIDE INJ 40 MG/4 ML VIAL IV PUSH ×2 (10:30→17:21)
[2020-09-15] MEDS: ATORVASTATIN 10 MG TABLET PO (10:30)
[2020-09-15] MEDS: OXYBUTYNIN CHLORIDE 5 MG TABLET PO (10:31)
[2020-09-15] MEDS: FERROUS SULFATE 324 MG TABLET PO ×2 (10:31→17:20)
[2020-09-15] MEDS: predniSONE 10 MG TABLET 20 MG PO (10:32)
[2020-09-15] MEDS: TAMSULOSIN HCL 0.4 MG CAPSULE PO ×2 (10:33→20:39)
--- NOTE | 2020-09-15 15:21 | PM.IMPN ---
Progress Note: A&P Assessment and Plan (1) Joint swelling: Code(s): M25.40 - Effusion, unspecified joint Status: Acute Assessment and Plan: Noted to have generalized weakness and joint swelling. Some joints are red and warm. Low likelihood of having a septic joint with negative blood cultures being on broad-spectrum antibiotics, but differential includes polyarticular septic arthritis, verses lupus, verses gout verses other autoimmune abnormality. Uric Acid elevated ESR >140 inflammatory marker CRP is decreasing day by day RF elevated at 28 will order Anticyclic Citrul Peptide and if positive higher likelihood of Rheumatoid Arthritis. CK Slightly more elevated than a few days prior Bilateral x-rays of his hands: Right Hand Erosions at ulnar styloid and neck of third proximal phalanx, most likely gout. Polyarticular osteoarthritis. Left Hand XR Juxta-articular erosions at second distal interphalangeal joint and fourth and fifth proximal interphalangeal joints with soft tissue swelling, consistent with inflammatory arthropathy, most likely gout. He patient denies any history of autoimmune disease or similar flares like this. KATIE Pending ANCA Pending Ultrasound-guided aspiration of right knee and right wrist-g stain is pending as well as culture. Synovial joint fluid in shows signs of gout flare and no acute signs of infection. He was given IV Solu-medrol 60 mg once yesterday and 40 mg once this morning for his inflammation and pain, then will continue oral prednisone taper Will reassess the patient tomorrow and continue monitoring his pain and discomfort with p.r.n. medications. (2) Acute exacerbation of CHF (congestive heart failure): Code(s): I50.9 - Heart failure, unspecified Status: Acute Assessment and Plan: Patient with tachypnea and hypoxia, found to have Mild Diastolic CHF exacerbation on CXR and CTA Chest. He is diuresing well with IV Lasix. Feeling better at this time and does not appear to be tachypneic. Continue IV Lasix 40 mg BID Monitor renal output, fluid status. (3) Atrial fibrillation with RVR: Code(s): I48.91 - Unspecified atrial fibrillation Status: Acute Assessment and Plan: Patient had a cardiac ablation that has been successful; also on Eliquis for anticoagulation and metoprolol for rate control Patient went into Afib with RVR 09/11/2020 and was moved to U on Tele with Cardizem Drip. Cardiology has been consulted who initially increase Cardizem drip to 10 mg, then was switched to amiodarone drip over the weekend. Patient was still in AFib with RVR and he went and had a cardioversion this morning with cardiology. He is in normal sinus rhythm at this time with heart rate of 92 beats per minute. Continue Eliquis at this time. If patient continues to have falls and shows no improvement with therapy, he will have to have his anticoagulation to be readdressed as this puts him at increased of bleeding (4) Generalized weakness: Code(s): R53.1 - Weakness Status: Acute Assessment and Plan: On reason for underlying weakness to rule out gout, autoimmune disease, versus infection. Continue work with physical and occupational therapy. (5) Sepsis: Code(s): A41.9 - Sepsis, unspecified organism Status: Acute Assessment and Plan: Patient was found to be septic with fever, tachycardia, tachypnea, and hypoxia. A chest x-ray showing possible pneumonia, we have been treating for UTI but urine cultures were negative. Antibiotics were adjusted her broader spectrum of coverage for pneumonia COVID was negative The patient has received 7 days of IV ceftriaxone for treatment of UTI I will discontinue IV vancomycin and Flagyl on 09/13/2019, which were given for 3
[2020-09-15] MEDS: methylPREDNISolone SOD SUCC 40 MG VIAL IV PUSH (17:19)
[2020-09-15] MEDS: AMIODARONE HCL 200 MG TABLET PO (17:19)
[2020-09-16] VITALS (16 sets, daily range): BP systolic 142–173; BP diastolic 58–82; PULSE 75–92; RESP 18–24; TEMP 35.6–36.7; O2SAT 96–99
[2020-09-16] MEDS: ACETAMINOPHEN 325 MG TABLET 650 MG PO ×2 (04:53→20:32)
[2020-09-16 05:20] LABS: Hematocrit 29.9 % (42.0-52.0); Mean Corpuscular HGB Conc 30.1 g/dl (32-36); Mean Corpuscular Hemoglobin 23.3 pg (26-34); Mean Corpuscular Volume 77.3 fl (80-100); Platelet Count Result 291 k/mm3 (150-375); Red Blood Count 3.87 M/mm3 (4.6-6.20); Red Cell Distribution Width 17.2 % (11.5-14.5); White Blood Count 10.3 K/mm3 (4.5-10.0)
[2020-09-16 05:32] LABS: Anion Gap 8 mmol/L (8-16); Blood Urea Nitrogen 52 mg/dL (9-20); CRP 6.4 mg/dL (<1.0); Carbon Dioxide 21 mmol/L (22-30); Chloride 106 mmol/L (98-107); Estimated CRCL calculation 56 ml/min; Estimated Glomerular Filt Rate 50; Glucose 136 mg/dL (75-110); Potassium 3.9 mmol/L (3.4-5.0); Sodium 135 mmol/L (137-145)
[2020-09-16] MEDS: lisinopriL 20 MG TABLET PO (08:37)
[2020-09-16] MEDS: APIXABAN 5 MG TABLET PO ×2 (08:37→17:42)
[2020-09-16] MEDS: AMIODARONE HCL 200 MG TABLET PO ×2 (08:37→17:41)
[2020-09-16] MEDS: ATORVASTATIN 10 MG TABLET PO (08:37)
[2020-09-16] MEDS: FERROUS SULFATE 324 MG TABLET PO ×2 (08:37→17:43)
[2020-09-16] MEDS: TAMSULOSIN HCL 0.4 MG CAPSULE PO ×2 (08:38→20:32)
[2020-09-16] MEDS: DOXAZOSIN MESYLATE 4 MG TABLET 8 MG PO ×2 (08:38→20:32)
[2020-09-16] MEDS: OXYBUTYNIN CHLORIDE 5 MG TABLET PO (08:38)
[2020-09-16] MEDS: predniSONE 10 MG TABLET 20 MG PO (08:38)
[2020-09-16] MEDS: FUROSEMIDE INJ 40 MG/4 ML VIAL IV PUSH ×2 (08:39→17:43)
--- NOTE | 2020-09-16 12:07 | PM.PNCARD ---
Progress Note: A&P Assessment and Plan (1) Atrial fibrillation with RVR: Code(s): I48.91 - Unspecified atrial fibrillation Status: Acute Assessment and Plan: Maintaining sinus rhythm status post cardioversion 09/15/[address] Valdez. Continue systemic anticoagulation without interruption until advised or for least 30 days. Continue metoprolol 50 mg q.12 hours, amiodarone 200 mg twice daily, Eliquis 5 mg b.i.d.. Follow-up Dr. Valdez as an outpatient in the next 2-4 weeks. May discontinue telemetry if maintaining sinus rhythm overnight. (2) Acute exacerbation of CHF (congestive heart failure): Code(s): I50.9 - Heart failure, unspecified Status: Acute Assessment and Plan: Transition to oral Lasix 40 mg b.i.d.. Improving. Balance diuresis and medical therapy with renal function. PT OT. (3) Hypertension: Code(s): I10 - Essential (primary) hypertension Status: Chronic Assessment and Plan: Above goal (4) Rhabdomyolysis: Qualifiers: Encounter type: subsequent encounter Rhabdomyolysis type: traumatic Qualified Code(s): T79.6XXD - Traumatic ischemia of muscle, subsequent encounter Code(s): M62.82 - Rhabdomyolysis Status: Acute Assessment and Plan: Improved, monitor renal function. (5) Multiple falls: Code(s): R29.6 - Repeated falls Status: Acute Assessment and Plan: PT OT. Ambulate with extreme caution for risk for falls and injuries. Patient must be anticoagulated given recent cardioversion. (6) Generalized weakness: Code(s): R53.1 - Weakness Status: Acute Subjective Date/time seen: Date of service: 09/16/20 12:07 Interval history: Follow-up visit for recurrent atrial fibrillation in this 70-year-old man Previous history of multivessel coronary disease bypass grafting in 2015 Patient has had atrial fibrillation shortly after surgery has been cardioverted a couple of times and underwent pulmonary vein isolation in 2019. Status post cardioversion 09/15/2020 maintaining sinus rhythm overnight. Denies chest pain or shortness of breath. No palpitations. Feels better overall. Review of Systems Review of Systems: All systems reviewed & are unremarkable except as noted in HPI and below Constitutional: Constitutional: Reports body ache(s), Denies excessive sweating, Denies headache(s) and Reports weakness Eyes: Eyes: Denies blurry vision ENT: Denies Normal hearing present, Denies headache(s) and Denies epistaxis Cardiovascular: Cardiovascular: Denies chest pain and Reports dyspnea Gastrointestinal: Gastrointestinal: Denies abdominal pain Genitourinary: Genitourinary: Denies dysuria and Denies urinary frequency Musculoskeletal: Musculoskeletal: Reports back pain, Reports arthralgias and Reports joint swelling Integumentary/Breasts: Skin/Breast: Denies dry skin Neurologic: Denies Normal hearing present, Denies confusion, Denies headache(s) and Reports weakness Psychiatric: Psychiatric: Denies anxiety and Denies confusion Endocrine: Endocrine: Denies excessive sweating Hematologic/Lymphatic: Hematologic/Lymphatic: Denies easy bleeding and Denies easy bruising Allergic/Immunologic: Allergic/Immunologic: Denies GI upset with certain foods Exam Narrative: Exam Narrative: Patient is alert awake and oriented. Appears in mild distress Const: General: comfortable, no acute distress and in distress; No confusion Orientation/consciousness: No confusion Other: Overweight elderly gentleman supine in bed no distress HENMT: General nose exam: Normal nares present and no epistaxis Mouth: Yes moist mucous membranes Eyes: Sclera: sclerae normal Pupils: Equal, round and reactive pupils present Neck: Neck: supple and no JVD Thyroid: thyroid normal Chest: Other: No reproducible chest wall pain to palpation Resp: Effort & Inspection: normal respiratory effort Auscultation: clear to au
--- NOTE | 2020-09-16 12:55 | PCDIET ---
Nutrition Follow-Up Complete: Nutrition Diagnosis: Increased protein needs related to wounds as evidenced by deep tissue pressure ulcer. Nutrition Goal: Meet estimated nutritional needs Goal in progress. Patient only eating 20-25% of meals, on average, but is taking Ensure Enlive BID. Recommend increasing Enlive to TID and liberalizing diet to low sodium. Patient c/o tooth hurting. Encouraged him to request soft/chopped foods, as desired, for more substantial choices. Eating soup, sherbet and Enlive at time of visit. Last recorded weight is 118.6 kg which is stable. Bowel Motility: BM x 3 on 09/15/20. Labs Reviewed: Hgb (9.0), Hct (29.9), Glu (136), BUN (52), Cr (1.4), Na (135), Alb (2.8), Lillie Ca (8.96) Meds Noted: Lipitor, Ferrous Sulfate, Lasix, Hydralazine, Lisinopril, Lopressor, Prednisone Additional Notes: Deep tissue areas to bilateral heels. Buttocks also with pressure ulcer. Will continue to monitor with same goal. Nutrition Monitoring and Evaluation: Will monitor every 5 days.
--- NOTE | 2020-09-16 14:05 | PM.IMPN ---
Progress Note: A&P Assessment and Plan (1) Joint swelling: Code(s): M25.40 - Effusion, unspecified joint Status: Acute Assessment and Plan: Noted to have generalized weakness and joint swelling. Some joints are red and warm. Low likelihood of having a septic joint with negative blood cultures ,being on broad-spectrum antibiotics, but differential includes polyarticular septic arthritis, verses lupus, verses gout verses other autoimmune abnormality. Uric Acid elevated 12.4 ESR >140 inflammatory marker CRP is decreasing day by day RF elevated at 28 will order Anticyclic Citrul Peptide and if positive higher likelihood of Rheumatoid Arthritis. CK Slightly more elevated than a few days prior Bilateral x-rays of his hands: Right Hand Erosions at ulnar styloid and neck of third proximal phalanx, most likely gout. Polyarticular osteoarthritis. Left Hand XR Juxta-articular erosions at second distal interphalangeal joint and fourth and fifth proximal interphalangeal joints with soft tissue swelling, consistent with inflammatory arthropathy, most likely gout. He patient denies any history of autoimmune disease or similar flares like this. KATIE Pending ANCA Pending Ultrasound-guided aspiration of right knee and right wrist-g stain as well as culture are so far negative. Synovial joint fluid in shows signs of gout flare and no acute signs of infection with the WBC under 5000 and uric acid crystals present. He was given IV Solu-medrol 60 mg once 09/14 and 40 mg once 09/15 for his inflammation and pain, then will continue oral prednisone taper (2) Acute exacerbation of CHF (congestive heart failure): Code(s): I50.9 - Heart failure, unspecified Status: Acute Assessment and Plan: Patient with tachypnea and hypoxia, found to have Mild Diastolic CHF exacerbation on CXR and CTA Chest. He is diuresing well with IV Lasix. Feeling better at this time and does not appear to be tachypneic. Continue IV Lasix 40 mg BID Monitor renal output, fluid status. (3) Atrial fibrillation with RVR: Code(s): I48.91 - Unspecified atrial fibrillation Status: Acute Assessment and Plan: Patient had a cardiac ablation that has been successful; also on Eliquis for anticoagulation and metoprolol for rate control Patient went into Afib with RVR 09/11/2020 and was moved to IMU on Tele with Cardizem Drip. Cardiology has been consulted who initially increase Cardizem drip to 10 mg, then was switched to amiodarone drip over the weekend. Patient was still in AFib with RVR and he went and had a cardioversion this 09/15 with cardiology. He is in normal sinus rhythm at this time with heart rate of 92 beats per minute. Continue Eliquis at this time. If patient continues to have falls and shows no improvement with therapy, he will have to have his anticoagulation to be readdressed as this puts him at increased of bleeding (4) Generalized weakness: Code(s): R53.1 - Weakness Status: Acute Assessment and Plan: On reason for underlying weakness to rule out gout, autoimmune disease, versus infection. Continue work with physical and occupational therapy. (5) Sepsis: Code(s): A41.9 - Sepsis, unspecified organism Status: Acute Assessment and Plan: Patient was found to be septic with fever, tachycardia, tachypnea, and hypoxia. A chest x-ray showing possible pneumonia, we have been treating for UTI but urine cultures were negative. Antibiotics were adjusted her broader spectrum of coverage for pneumonia COVID was negative The patient has received 7 days of IV ceftriaxone for treatment of UTI I will discontinue IV vancomycin and Flagyl on 09/13/2019, which were given for 3 days for broader spectrum of antibiotics for possib
[2020-09-17] VITALS (17 sets, daily range): BP systolic 138–173; BP diastolic 32–86; PULSE 72–93; RESP 16–28; TEMP 35.6–36.6; O2SAT 96–98
[2020-09-17 05:12] LABS: Basophils Percent Auto 0.1 % (0.2-1.2); Hematocrit 28.9 % (42.0-52.0); Hemoglobin 8.5 g/dL (14.0-18.0); Immature Granulocyte Absolute 0.39 K/mm3 (0.00-0.031); Immature Granulocyte Percent A 5.3 % (0-0.5); Lymphocytes Absolute Auto 0.62 K/mm3 (0.9-3.2); Lymphocytes Percent Auto 8.4 % (18.3-44.2); Mean Corpuscular HGB Conc 29.4 g/dl (32-36); Mean Corpuscular Hemoglobin 22.4 pg (26-34); Mean Corpuscular Volume 76.1 fl (80-100); Mean Platelet Volume 10.6 fl (7.4-10.4); Monocytes Absolute Auto 0.4 K/mm3 (0.1-0.6); Monocytes Percent Auto 5.1 % (2.6-8.5); Neutrophils Percent Auto 81.1 % (45.5-73.1); Platelet Count Result 255 k/mm3 (150-375); Red Cell Distribution Width 17.2 % (11.5-14.5); White Blood Count 7.4 K/mm3 (4.5-10.0)
[2020-09-17 05:33] LABS: Anion Gap 9 mmol/L (8-16); Blood Urea Nitrogen 63 mg/dL (9-20); Calcium 7.8 mg/dL (8.4-10.2); Carbon Dioxide 23 mmol/L (22-30); Chloride 106 mmol/L (98-107); Estimated CRCL calculation 60 ml/min; Estimated Glomerular Filt Rate 54; Glucose 117 mg/dL (75-110); Potassium 3.9 mmol/L (3.4-5.0); Sodium 138 mmol/L (137-145)
[2020-09-17] MEDS: OXYBUTYNIN CHLORIDE 5 MG TABLET PO (09:04)
[2020-09-17] MEDS: TAMSULOSIN HCL 0.4 MG CAPSULE PO ×2 (09:04→20:45)
[2020-09-17] MEDS: lisinopriL 20 MG TABLET PO (09:04)
[2020-09-17] MEDS: ATORVASTATIN 10 MG TABLET PO (09:05)
[2020-09-17] MEDS: DOXAZOSIN MESYLATE 4 MG TABLET 8 MG PO ×2 (09:05→20:45)
[2020-09-17] MEDS: FERROUS SULFATE 324 MG TABLET PO ×2 (09:05→17:22)
[2020-09-17] MEDS: AMIODARONE HCL 200 MG TABLET PO ×2 (09:05→17:22)
[2020-09-17] MEDS: APIXABAN 5 MG TABLET PO ×2 (09:05→17:23)
[2020-09-17] MEDS: predniSONE 10 MG TABLET 20 MG PO (09:07)
[2020-09-17] MEDS: ACETAMINOPHEN 325 MG TABLET 650 MG PO (11:30)
--- NOTE | 2020-09-17 12:15 | PM.IMPN ---
Progress Note: A&P Assessment and Plan (1) Joint swelling: Code(s): M25.40 - Effusion, unspecified joint Status: Acute Assessment and Plan: Noted to have generalized weakness and joint swelling. Some joints are red and warm. Low likelihood of having a septic joint with negative blood cultures ,being on broad-spectrum antibiotics, but differential includes polyarticular septic arthritis, verses lupus, verses gout verses other autoimmune abnormality. Uric Acid elevated 12.4 ESR >140 inflammatory marker CRP is decreasing day by day RF elevated at 28 will order Anticyclic Citrul Peptide and if positive higher likelihood of Rheumatoid Arthritis. Bilateral x-rays of his hands: Right Hand Erosions at ulnar styloid and neck of third proximal phalanx, most likely gout. Polyarticular osteoarthritis. Left Hand XR Juxta-articular erosions at second distal interphalangeal joint and fourth and fifth proximal interphalangeal joints with soft tissue swelling, consistent with inflammatory arthropathy, most likely gout. He patient denies any history of autoimmune disease or similar flares like this. KATIE Pending ANCA Pending Ultrasound-guided aspiration of right knee and right wrist-g stain as well as culture are so far negative. Synovial joint fluid shows signs of gout flare and no acute signs of infection with the WBC under 5000 and uric acid crystals present. He was given IV Solu-medrol 60 mg once 10 and 40 mg daily thereafter for his inflammation and pain, then will continue oral prednisone taper (2) Acute exacerbation of CHF (congestive heart failure): Code(s): I50.9 - Heart failure, unspecified Status: Acute Assessment and Plan: Patient with tachypnea and hypoxia, found to have Mild Diastolic CHF exacerbation on CXR and CTA Chest. He is diuresing well with IV Lasix and with BUN up will switch to po lasix. Feeling better at this time and does not appear to be tachypneic. Continue Lasix 40 mg BID but change to po Monitor renal output, fluid status. (3) Atrial fibrillation with RVR: Code(s): I48.91 - Unspecified atrial fibrillation Status: Acute Assessment and Plan: Patient had a cardiac ablation that has been successful; also on Eliquis for anticoagulation and metoprolol for rate control Patient went into Afib with RVR 09/11/2020 and was moved to IMU on Tele with Cardizem Drip. Cardiology has been consulted who initially increase Cardizem drip to 10 mg, then was switched to amiodarone drip over the weekend. Patient was still in AFib with RVR and he went and had a cardioversion 09/15 with cardiology. He is in normal sinus rhythm at this time with heart rate of 92 beats per minute. Continue Eliquis at this time. If patient continues to have falls and shows no improvement with therapy, he will have to have his anticoagulation to be readdressed as this puts him at increased of bleeding (4) Generalized weakness: Code(s): R53.1 - Weakness Status: Acute Assessment and Plan: One reason for underlying weakness is gout. Continue work with physical and occupational therapy. (5) Sepsis: Code(s): A41.9 - Sepsis, unspecified organism Status: Acute Assessment and Plan: Patient was found to be septic with fever, tachycardia, tachypnea, and hypoxia. A chest x-ray showing possible pneumonia, we have been treating for UTI but urine cultures were negative. Antibiotics were adjusted her broader spectrum of coverage for pneumonia COVID was negative The patient has received 7 days of IV ceftriaxone for treatment of UTI discontinue IV vancomycin and Flagyl on 09/13/2019, which were given for 3 days for broader spectrum of antibiotics for possible pneumonia. Patient CTA of his chest did not
--- NOTE | 2020-09-17 15:50 | PC.NURSE ---
This patient, Justus Rodriguez, was transferred to [facility] on 09/17/20 at 1548. Personal belongings sent with patient. Report given to Micalin RN. Appropriate documentation sent with patient.
--- NOTE | 2020-09-17 16:00 | PC.NURSE ---
This patient, Justus Rodriguez, was received from [IMU ] on 09/17/20 at 1600. Patient/family oriented to unit policies and routines. Received report from Riddhi SRIVASTAVA
[2020-09-17] MEDS: FUROSEMIDE 40 MG TABLET PO (17:21)
[2020-09-17 20:43] LABS: ANCA Screen Negative (Negative)
[2020-09-17] MEDS: METOPROLOL TARTRATE 50 MG TAB PO (20:45)
[2020-09-18] VITALS (16 sets, daily range): BP systolic 122–160; BP diastolic 53–68; PULSE 66–90; RESP 16–20; TEMP 36.1–36.7; O2SAT 91–99
[2020-09-18 05:55] LABS: Anion Gap 5 mmol/L (8-16); Blood Urea Nitrogen 53 mg/dL (9-20); Calcium 8.2 mg/dL (8.4-10.2); Carbon Dioxide 25 mmol/L (22-30); Chloride 107 mmol/L (98-107); Estimated CRCL calculation 60 ml/min; Estimated Glomerular Filt Rate 54; Glucose 95 mg/dL (75-110); Potassium 3.9 mmol/L (3.4-5.0); Sodium 137 mmol/L (137-145)
[2020-09-18 06:02] LABS: Basophils Percent Auto 0.1 % (0.2-1.2); Eosinophils Percent Auto 0.1 % (0-4.4); Hematocrit 29.6 % (42.0-52.0); Immature Granulocyte Absolute 0.39 K/mm3 (0.00-0.031); Immature Granulocyte Percent A 4.6 % (0-0.5); Lymphocytes Absolute Auto 0.93 K/mm3 (0.9-3.2); Lymphocytes Percent Auto 10.9 % (18.3-44.2); Mean Corpuscular HGB Conc 30.4 g/dl (32-36); Mean Corpuscular Hemoglobin 23.6 pg (26-34); Mean Corpuscular Volume 77.5 fl (80-100); Mean Platelet Volume 10.6 fl (7.4-10.4); Monocytes Absolute Auto 0.6 K/mm3 (0.1-0.6); Monocytes Percent Auto 6.6 % (2.6-8.5); Neutrophils Absolute Auto 6.6 K/mm3 (1.3-6.7); Neutrophils Percent Auto 77.7 % (45.5-73.1); Platelet Count Result 249 k/mm3 (150-375); Red Blood Count 3.82 M/mm3 (4.6-6.20); Red Cell Distribution Width 17.7 % (11.5-14.5); White Blood Count 8.5 K/mm3 (4.5-10.0)
[2020-09-18] MEDS: FERROUS SULFATE 324 MG TABLET PO ×2 (08:38→16:57)
[2020-09-18] MEDS: AMIODARONE HCL 200 MG TABLET PO ×2 (08:39→16:57)
[2020-09-18] MEDS: ATORVASTATIN 10 MG TABLET PO (08:40)
[2020-09-18] MEDS: DOXAZOSIN MESYLATE 4 MG TABLET 8 MG PO ×2 (08:40→20:49)
[2020-09-18] MEDS: APIXABAN 5 MG TABLET PO ×2 (08:40→16:57)
[2020-09-18] MEDS: OXYBUTYNIN CHLORIDE 5 MG TABLET PO (08:41)
[2020-09-18] MEDS: FUROSEMIDE 40 MG TABLET PO ×2 (08:41→16:58)
[2020-09-18] MEDS: METOPROLOL TARTRATE 50 MG TAB PO ×2 (08:41→20:49)
[2020-09-18] MEDS: TAMSULOSIN HCL 0.4 MG CAPSULE PO ×2 (08:42→20:49)
[2020-09-18] MEDS: predniSONE 10 MG TABLET 20 MG PO (08:42)
[2020-09-18] MEDS: LOPERAMIDE HCL 2 MG CAPSULE PO (15:56)
[2020-09-18] MEDS: lisinopriL 10 MG TABLET PO (15:56)
--- NOTE | 2020-09-18 18:22 | PM.IMPN ---
Progress Note: A&P Assessment and Plan (1) Joint swelling: Code(s): M25.40 - Effusion, unspecified joint Status: Acute Assessment and Plan: Noted to have generalized weakness and joint swelling. Some joints are red and warm. Low likelihood of having a septic joint with negative blood cultures ,being on broad-spectrum antibiotics, but differential includes polyarticular septic arthritis, verses lupus, verses gout verses other autoimmune abnormality. Uric Acid elevated 12.4 ESR >140 inflammatory marker CRP is decreasing day by day RF elevated at 28 will order Anticyclic Citrul Peptide and if positive higher likelihood of Rheumatoid Arthritis. Bilateral x-rays of his hands: Right Hand Erosions at ulnar styloid and neck of third proximal phalanx, most likely gout. Polyarticular osteoarthritis. Left Hand XR Juxta-articular erosions at second distal interphalangeal joint and fourth and fifth proximal interphalangeal joints with soft tissue swelling, consistent with inflammatory arthropathy, most likely gout. He patient denies any history of autoimmune disease or similar flares like this. KATIE Pending ANCA Pending Ultrasound-guided aspiration of right knee and right wrist-g stain as well as culture are negative. Synovial joint fluid shows signs of gout flare and no acute signs of infection with the WBC under 5000 and uric acid crystals present. He was given IV Solu-medrol 60 mg once 09/14 and 30 mg daily thereafter for his inflammation and pain, will continue oral prednisone taper (2) Acute exacerbation of CHF (congestive heart failure): Code(s): I50.9 - Heart failure, unspecified Status: Acute Assessment and Plan: Patient with tachypnea and hypoxia, found to have Mild Diastolic CHF exacerbation on CXR and CTA Chest. He was diuresing well with IV Lasix and with BUN up switched to po lasix 09/17. Feeling better at this time and does not appear to be tachypneic. Continue Lasix 40 mg BID po Monitor renal output, fluid status. (3) Atrial fibrillation with RVR: Code(s): I48.91 - Unspecified atrial fibrillation Status: Acute Assessment and Plan: Patient had a cardiac ablation that has been successful; also on Eliquis for anticoagulation and metoprolol for rate control Patient went into Afib with RVR 09/11/2020 and was moved to IMU on Tele with Cardizem Drip. Cardiology was consulted who initially increase Cardizem drip to 10 mg, then was switched to amiodarone drip . Patient was still in AFib with RVR and he went and had a cardioversion 09/15 with cardiology. He is in normal sinus rhythm at this time with heart rate of 80 beats per minute. Continue Eliquis at this time. If patient continues to have falls and shows no improvement with therapy, he will have to have his anticoagulation to be readdressed as this puts him at increased of bleeding (4) Generalized weakness: Code(s): R53.1 - Weakness Status: Acute Assessment and Plan: One reason for underlying weakness is gout. Continue work with physical and occupational therapy. (5) Sepsis: Code(s): A41.9 - Sepsis, unspecified organism Status: Acute Assessment and Plan: Patient was found to be septic with fever, tachycardia, tachypnea, and hypoxia. A chest x-ray showing possible pneumonia, we have been treating for UTI but urine cultures were negative. Antibiotics were adjusted her broader spectrum of coverage for pneumonia COVID was negative The patient has received 7 days of IV ceftriaxone for treatment of UTI discontinue IV vancomycin and Flagyl on 09/13/2019, which were given for 3 days for broader spectrum of antibiotics for possible pneumonia. Patient CTA of his chest did not show any underlying pneumonia so we do no
[2020-09-19] VITALS (16 sets, daily range): BP systolic 133–172; BP diastolic 55–74; PULSE 56–98; RESP 16–20; TEMP 35.8–36.3; O2SAT 96–100
--- NOTE | 2020-09-19 08:05 | PM.PNCARD ---
Progress Note: A&P Additional Plan 70-year-old man with: Falling will lower extremity weakness and polyarticular arthritis. Workup is underway he has responded well to high-dose steroids Coronary artery disease with previous CABG doing well Paroxysmal atrial fibrillation with previous cardioversions, previous pulmonary vein isolation ablation procedure. Patient had a recurrence of his AFib during this admission after being placed back on amiodarone he has been successfully converted back to sinus rhythm. Bhavesh Valdez MD [facility] Subjective Date/time seen: 09/19/20 08:05 Interval history: Follow-up visit in this 70-year-old man with Coronary artery disease with previous CABG and intermittent atrial fibrillation. Patient underwent DC cardioversion on Tuesday restoring sinus rhythm after having been loaded with amiodarone over the last weekend. Telemetry still shows maintaining sinus rhythm. Remains in the hospital for treatment of his weakness and polyarticular arthritis. This is clearly improving over the course of the week in response to high-dose steroids. His only complaint this morning is at he would like 2% milk with his breakfast instead of skim milk Exam Const: General: comfortable and no acute distress Eyes: General: appearance normal, both eyes and all related structures Neck: Neck: supple and no JVD Other: Carotid pulses normal no bruits Resp: Effort & Inspection: normal respiratory effort Auscultation: clear to auscultation bilaterally Cardio: Rate: regular rate Rhythm: regular rhythm Other: Soft systolic murmur does not radiate from the left sternal border GI: GI Palp: Yes Soft to palpation Auscultation: normal bowel sounds Skin: General skin exam: normal color Neuro: Cognition (Neuro): normal cognition Extrem: Other: Hands and fingers are clearly much less inflamed than they were last week when I saw him. Objective Data Vital Signs Vital Signs: Vital Signs - 24 hr 09/18/20 08:39 09/18/20 08:41 09/18/20 10:00 Temperature 36.7 C Pulse Rate 70 70 90 Respiratory Rate 16 Blood Pressure 150/68 H Pulse Oximetry 99 09/18/20 12:00 09/18/20 14:00 09/18/20 16:00 Temperature 36.3 C L Pulse Rate 78 72 81 Respiratory Rate 16 Blood Pressure 154/63 H Pulse Oximetry 97 09/18/20 16:57 09/18/20 18:00 09/18/20 20:00 Temperature 36.3 C L Pulse Rate 70 80 83 Respiratory Rate 16 Blood Pressure 153/56 H Pulse Oximetry 98 09/18/20 20:49 09/18/20 21:14 09/19/20 00:00 Temperature 36.1 C L Pulse Rate 74 74 56 L Respiratory Rate 16 Blood Pressure 160/64 H Pulse Oximetry 97 09/19/20 01:00 09/19/20 04:00 09/19/20 05:00 Temperature 36.0 C L 36.1 C L Pulse Rate 72 70 72 Respiratory Rate 20 20 Blood Pressure 150/74 H 133/55 L Pulse Oximetry 97 96 Intake/Output Intake/Output: Intake & Output 09/16/20 09/17/20 09/18/20 09/19/20 23:59 23:59 23:59 23:59 Intake Total 1880 1970 1120 100 Output Total 1775 5 2227 550 Balance 105 -105 -1105 -450 Meds/Results Medications: Active Medications Generic Name Dose Route Start Last Admin Trade Name Freq PRN Reason Stop Dose Admin Acetaminophen 650 mg 09/09/20 08:01 09/17/20 11:30 Acetaminophen 325 Mg Tablet PO 650 mg Q4H PRN Administration Mild Pain (1-3) or Fever Amiodarone HCl 200 mg 09/15/20 17:00 09/18/20 16:57 Amiodarone Hcl 200 Mg Tablet PO 200 mg BID TERRENCE Administration Apixaban 5 mg 09/08/20 09:00 09/18/20 16:57 Apixaban 5 Mg Tablet PO 5 mg BID TERRENCE Administration Atorvastatin Calcium 10 mg 09/08/20 09:00 09/18/20 08:40 Atorvastatin 10 Mg Tablet PO 10 mg DAILY TERRENCE Administration Doxazosin Mesylate 8 mg 09/08/20 09:00 09/18/20 20:49 Doxazosin Mesylate 4 Mg Tablet PO 8 mg Q12HR TERRENCE Administration Ferrous Sulfate 324 mg 09/12/20 17:00 09/18/20 16:57 Ferrous Sulfate 324 Mg Tablet PO 324 mg BIDWM TERRENCE Administratio
[2020-09-19 08:23] LABS: Anion Gap 2 mmol/L (8-16); Blood Urea Nitrogen 49 mg/dL (9-20); Calcium 8.1 mg/dL (8.4-10.2); Carbon Dioxide 27 mmol/L (22-30); Chloride 108 mmol/L (98-107); Estimated CRCL calculation 60 ml/min; Estimated Glomerular Filt Rate 54; Glucose 97 mg/dL (75-110); Sodium 137 mmol/L (137-145)
[2020-09-19] MEDS: METOPROLOL TARTRATE 50 MG TAB PO ×2 (09:17→20:18)
[2020-09-19] MEDS: FUROSEMIDE 40 MG TABLET PO ×2 (09:17→16:57)
[2020-09-19] MEDS: FERROUS SULFATE 324 MG TABLET PO ×2 (09:17→16:56)
[2020-09-19] MEDS: predniSONE 10 MG TABLET 20 MG PO (09:18)
[2020-09-19] MEDS: AMIODARONE HCL 200 MG TABLET PO ×2 (09:18→16:56)
[2020-09-19] MEDS: TAMSULOSIN HCL 0.4 MG CAPSULE PO ×2 (09:18→20:19)
[2020-09-19] MEDS: APIXABAN 5 MG TABLET PO ×2 (09:18→16:57)
[2020-09-19] MEDS: DOXAZOSIN MESYLATE 4 MG TABLET 8 MG PO ×2 (09:18→20:17)
[2020-09-19] MEDS: ATORVASTATIN 10 MG TABLET PO (09:18)
[2020-09-19] MEDS: OXYBUTYNIN CHLORIDE 5 MG TABLET PO (09:18)
--- NOTE | 2020-09-19 09:20 | PC.NURSE ---
call to pharm for missing lisinopril
--- NOTE | 2020-09-19 12:07 | PCNFU ---
Nutrition Follow-Up Complete: Increased Protein needs as related to wounds as evidenced by Deep Tissue PU. Goal: Meet estimated nutritional needs Progressing towards goal. We will continue current goal. Pt current nutrition is Heart Healthy. Last recorded weight is 118.6 kg, stable Bowel Motility:+BM reported 09/19 Labs Reviewed:BUN 49,GFR 54 Meds Noted:Prednisone, Lipitor, Lasix. Additional Notes: Nutrition follow up today. Patient refused dinner last night, breakfast 20% of tray. Patient current with mouth sores. Ensure Enlive BID continues providing an additional 350 kcals and 20 gms protein. Wounds: deep tissue PU noted on buttock. PO intake encouraged. Monitor: labs, weight, meds, oral intake every 5 days.
--- NOTE | 2020-09-19 12:08 | PC.NURSE ---
second call to pharmacy to inquire about lisinopril from a.m dose
[2020-09-19] MEDS: lisinopriL 10 MG TABLET PO (13:28)
[2020-09-19] MEDS: MAGNES & ALUM HYD/SIMETH/DIPHENHYD/LIDOCAINE 119 ML MOUTHWASH BY MOUTH ×3 (13:31→20:16)
[2020-09-19] MEDS: NYSTATIN 100,000 UNITS/ML SUSP 5 ML ORAL.SUSP PO ×3 (13:32→20:19)
[2020-09-19] MEDS: LOPERAMIDE HCL 2 MG CAPSULE PO (14:54)
[2020-09-19] MEDS: ACETAMINOPHEN 325 MG TABLET 650 MG PO (16:57)
--- NOTE | 2020-09-19 18:05 | PC.NURSE ---
call to pt's brother to update family on discharge plans and time, reviewed plan of care
[2020-09-20] VITALS: PULSE 65
[2020-09-20 02:00] VITALS: BP 149/63; PULSE 68; RESP 18; TEMP 36.3; O2SAT 97
[2020-09-20 04:00] VITALS: PULSE 59
[2020-09-20] MEDS: MAGNES & ALUM HYD/SIMETH/DIPHENHYD/LIDOCAINE 119 ML MOUTHWASH BY MOUTH (05:47)
[2020-09-20 06:00] VITALS: BP 142/67; PULSE 73; RESP 16; TEMP 36.4; O2SAT 98
[2020-09-20 09:22] LABS: Anti Cyclic Citrullinated Pept <16 Units (<20)
--- NOTE | 2020-09-20 18:04 | PM.DS ---
DS: Admitting Diagnosis Admitting Diagnosis Admitting Diagnosis: Weakness with fall and inflammatory arthritis DS: Discharge Diagnosis Discharge Diagnosis (1) Joint swelling: Code(s): M25.40 - Effusion, unspecified joint Status: Acute Assessment and Plan: Noted to have generalized weakness and joint swelling. Some joints are red and warm. Low likelihood of having a septic joint with negative blood cultures ,being on broad-spectrum antibiotics, but differential includes polyarticular septic arthritis, verses lupus, verses gout verses other autoimmune abnormality. Uric Acid elevated 12.4 ESR >140 inflammatory marker CRP is decreasing day by day RF elevated at 28 ,Anticyclic Citrul Peptide still pending at discharge but suspect all gouty arthritis and not rheumatoid Bilateral x-rays of his hands: Right Hand Erosions at ulnar styloid and neck of third proximal phalanx, most likely gout. Polyarticular osteoarthritis. Left Hand XR Juxta-articular erosions at second distal interphalangeal joint and fourth and fifth proximal interphalangeal joints with soft tissue swelling, consistent with inflammatory arthropathy, most likely gout. He patient denies any history of autoimmune disease or similar flares like this. KATIE negative ANCA negative Ultrasound-guided aspiration of right knee and right wrist-g stain as well as culture are negative. Synovial joint fluid shows signs of gout flare and no acute signs of infection with the WBC under 5000 and uric acid crystals present. He was given IV Solu-medrol 60 mg once 09/14 and 30 mg daily thereafter for his inflammation and pain, will continue oral prednisone taper over next week Eventually started on allopurinol 150 mg daily for 2 weeks then 300 mg daily. With hopes of controlling acute flares (2) Acute exacerbation of CHF (congestive heart failure): Code(s): I50.9 - Heart failure, unspecified Status: Acute Assessment and Plan: Patient with tachypnea and hypoxia, found to have Mild Diastolic CHF exacerbation on CXR and CTA Chest. He was diuresing well with IV Lasix and with BUN up switched to po lasix 09/17.. Continue Lasix 40 mg BID po Repeat BMP in 1 week (3) Atrial fibrillation with RVR: Code(s): I48.91 - Unspecified atrial fibrillation Status: Acute Assessment and Plan: Patient had a cardiac ablation that has been successful; also on Eliquis for anticoagulation and metoprolol for rate control Patient went into Afib with RVR 09/11/2020 and was moved to U on Tele with Cardizem Drip. Cardiology was consulted who initially increase Cardizem drip to 10 mg, then was switched to amiodarone drip . Patient was still in AFib with RVR and he had a cardioversion 09/15 with cardiology. He is in normal sinus rhythm at this time with heart rate of 80 beats per minute. Echo ejection fraction 60% with moderate pulmonary hypertension and no significant valvular abnormalities Continue Eliquis at this time. If patient continues to have falls and shows no improvement with therapy, he will have to have his anticoagulation to be readdressed as this puts him at increased of bleeding (4) Generalized weakness: Code(s): R53.1 - Weakness Status: Acute Assessment and Plan: One reason for underlying weakness is gout. Continue work with physical and occupational therapy. At rehab (5) Sepsis: Code(s): A41.9 - Sepsis, unspecified organism Status: Acute Assessment and Plan: Patient was found to be septic with fever, tachycardia, tachypnea, and hypoxia. A chest x-ray showing possible pneumonia, urine cultures grew E coli. Antibiotics were adjusted broader spectrum of coverage for pneumonia COVID was negative The patient has received 7 days of
== END 2020-09-20 08:41 | disposition swing bed (61) | DRG 564 ==
LOC: ANHED 17:08 → ANH2MED 09-08 04:56 → ANHIMU 09-15 08:54 → ANH2MED 09-19 14:53 → ANH3MEDSUR 09-22 15:29 → ANHIMU 09-22 15:29
PROVIDERS: Family Medicine; Internal Medicine; Internal Medicine Cardiovascular Disease; Nurse Practitioner; Physician Assistant; Specialist; Admitting Provider Family Medicine; Emergency Provider Emergency Medicine; PCP Family Medicine Adolescent Medicine; Visit Provider Physician Assistant
PROC: 5A2204Z Restoration of Cardiac Rhythm, Single (ICD-10-PCS; principal; 2020-09-15 09:00)
DX: T79.6XXA Traumatic ischemia of muscle, initial encounter (principal); J96.21 Acute and chronic respiratory failure with hypoxia; A41.9 Sepsis, unspecified organism; I50.31 Acute diastolic (congestive) heart failure; N39.0 Urinary tract infection, site not specified; N17.9 Acute kidney failure, unspecified; I48.20 Chronic atrial fibrillation, unspecified; M10.09 Idiopathic gout, multiple sites; B96.20 Unspecified Escherichia coli [E. coli] as the cause of diseases classified elsewhere; Z20.822 Contact with and (suspected) exposure to COVID-19; M15.9 Polyosteoarthritis, unspecified; I11.0 Hypertensive heart disease with heart failure; S60.551D Superficial foreign body of right hand, subsequent encounter; W19.XXXA Unspecified fall, initial encounter; R29.6 Repeated falls; K12.1 Other forms of stomatitis; N40.0 Benign prostatic hyperplasia without lower urinary tract symptoms; E78.5 Hyperlipidemia, unspecified; I25.10 Atherosclerotic heart disease of native coronary artery without angina pectoris; E86.0 Dehydration; B37.2 Candidiasis of skin and nail; D63.1 Anemia in chronic kidney disease; L89.891 Pressure ulcer of other site, stage 1; N50.89 Other specified disorders of the male genital organs; Z96.652 Presence of left artificial knee joint; Z79.01 Long term (current) use of anticoagulants
CPT/HCPCS: 20606; 20611; 36415; 36600; 51701; 70450; 71045; 71046; 71275; 73080; 73110; 73130; 74176; 76775; 76870; 76942; 80048; 80053; 80202; 81001; 82274; 82375; 82550; 82728; 82805; 83050; 83540; 83550; 83605; 83615; 83735; 84484; 84550; 85025; 85027; 85652; 86021; 86038; 86140; 86200; 86430; 87040; 87045; 87046; 87070; 87075; 87077; 87086; 87088; 87186; 87205; 87324; 87427; 88108; 89051; 89060; 92960; 93005; 93306; 93970; 93976; 96365; 97110; 97162; 97165; 97530; 97535; 99285; A9270; C9803; J0131; J0282; J0696; J1756; J1940; J2060; J2250; J2270; J2405; J2543; J2704; J2920; J2930; J3010; J3370; J7030; J7040; J7512; Q9967; U0003

== ENCOUNTER 2020-09-20 09:21 | Inpatient (IN) | payer MEDICARE, SELFPAY ==
[2020-09-20 09:25] VITALS: BP 144/72; PULSE 76; RESP 18; TEMP 36.8; O2SAT 97; BMI 34.8
--- NOTE | 2020-09-20 09:25 | ADMGEN ---
This patient, Justus Rodriguez, was admitted to 2nd Floor Room 204-2. Patient/family oriented to hospital policies and general routines including ID bracelet, bed and alarms, visiting hours, pain management, procedures, bathroom and other care routines, personal items, smoking policy, room service/diet, and visiting hours. Information on how to activate the Rapid Response Team has been discussed. Patient/Family are encouraged to report perceived risks to care and to ask questions if they do not understand what they are told or what they should do.
--- NOTE | 2020-09-20 09:51 | WPDREHABHP ---
H&P: HPI History of Present Illness Date/Time: 09/20/20 09:51 Chief Complaint: generalized weakness Narrative: Justus Rodriguez is a 70 year old male that presented to [facility] on 09/07/2020 due to frequent falls. When he presented to the ED patient had a edematous erythematous right hand with an edematous scrotum with an ulcer due to sitting on a toilet for a unknown amount of time. Patient has a past medical history of A. fib, BPH, chronic anemia, hyperlipidemia, hypertension. Patient was initially found to have pneumonia and and an urinary tract infection with the growth of E. coli . He was started on Rocephin Zosyn and Vanco. Patient was admitted for urinary tract infection, rhabdo, and acute kidney injury. While patient was inpatient at [facility] patient went into A. fib with RVR cardiology was consulted patient was placed back on amiodarone and converted back to sinus rhythm. Patient does have ulcers on his heels and scrotal. The patient denies SOB, CP, palpitation, extremity numbness, lightheadedness, dizziness, constipation, diarrhea, chills, or fever. Patient admitted in swing bed for rehabilitation due to decreased balance decreased mobility in severe limited function endurant and/or mobility. Review of Systems Review of Systems All systems reviewed & are unremarkable except as noted in HPI and below (10 point system review) [facility] Past Medical History Medical History Atrial fibrillation Treated with ablation currently on anticoagulation. BPH (benign prostatic hyperplasia) Chronic anemia Hyperlipidemia Hypertension Surgical History Surgical History H/O heart bypass surgery 3 way bypass H/O hernia repair Right lower abdomen with mesh History of cardiac radiofrequency ablation History of knee replacement Family History Family History Sibling Atrial fibrillation Father Heart disease Mother Congestive heart failure Social History Social History Social History: The patient never or had any children. 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 He does not have a durable power workers compensation defense attorney for healthcare. He desires to be a full code. The patient stated that he never smoked rarely uses alcohol does not use any marijuana or illicit drugs. Smoking status: Never smoker Alcohol intake: never Substance use: never Substance use type: does not use Gender identity (if verbalized by the patient): Male Spiritual care concerns: No Meds Home Medications and Allergies Home Medications Medication Instructions Recorded Confirmed Type Eliquis 5 mg PO BID 09/01/20 09/20/20 History atorvastatin 10 mg PO DAILY 09/01/20 09/20/20 History doxazosin 8 mg PO BID 09/01/20 09/20/20 History lisinopril 20 mg PO DAILY 09/01/20 09/20/20 History metoprolol tartrate 50 mg PO BID 09/01/20 09/20/20 History tamsulosin 0.4 mg PO BID 09/01/20 09/20/20 History oxybutynin chloride 5 mg PO DAILY 09/07/20 09/20/20 History Mag&Al/Sim/Diphenhyd/Lidocaine 5 ml BYMOUTH Q4HR #30 ml 09/19/20 09/20/20 Rx [First-Mouthwash Blm Suspension] acetaminophen [Mapap 650 mg PO Q4H PRN #30 tablet 09/19/20 09/20/20 Rx (acetaminophen)] allopurinol 300 mg PO DAILY #30 tablet 09/19/20 09/20/20 Rx amiodarone [Pacerone] 200 mg PO BID #60 tablet 09/19/20 09/20/20 Rx furosemide 40 mg PO BID #30 tablet 09/19/20 09/20/20 Rx loperamide 2 mg PO QID PRN #30 cap 09/19/20 09/20/20 Rx nystatin 5 ml PO QID #200 ml 09/19/20 09/20/20 Rx prednisone 20 mg PO DAILY #12 tablet 09/19/20 09/20/20 Rx Allergies Allergy/AdvReac Type Severity Reaction Status Date / Time No Known Allergies Allergy Verified 09/07/20 15:51 Exam Narrative Exam Narrative: GENERAL: This is a well-nourished, well-developed patient, in
[2020-09-20] MEDS: SACCHAROMYCES BOULARDII 250 MG CAPSULE PO ×2 (14:21→16:13)
[2020-09-20] MEDS: NYSTATIN 100,000 UNITS/ML SUSP 5 ML ORAL.SUSP PO ×3 (14:21→20:10)
[2020-09-20 16:10] VITALS: BP 149/68; PULSE 75; RESP 18; TEMP 36.6; O2SAT 95
[2020-09-20 16:12] VITALS: PULSE 75
[2020-09-20] MEDS: FUROSEMIDE 40 MG TABLET PO (16:12)
[2020-09-20] MEDS: AMIODARONE HCL 200 MG TABLET PO (16:12)
[2020-09-20] MEDS: TAMSULOSIN HCL 0.4 MG CAPSULE PO (16:12)
[2020-09-20] MEDS: METOPROLOL TARTRATE 50 MG TAB PO (16:12)
[2020-09-20] MEDS: LOPERAMIDE HCL 2 MG CAPSULE PO (20:11)
[2020-09-20] MEDS: traZODone HCL 50 MG TABLET PO (20:11)
[2020-09-20 23:45] VITALS: BP 149/59; PULSE 74; RESP 18; TEMP 36.8; O2SAT 95
--- NOTE | 2020-09-21 03:18 | PC.NURSE ---
pt sleeping, no evidence of distress noted, belongings within reach
[2020-09-21 05:54] LABS: Hematocrit 30.3 % (37.0-46.0); Hemoglobin 9.1 g/dL (12.4-15.3); Mean Corpuscular Hemoglobin 23.5 pg (27.0-31.0); Mean Corpuscular Volume 78.1 fL (78.0-102.0); Mean Platelet Volume 10.4 fl (8.7-11.0); Platelet Count Result 230 K/mm3 (150-420); Red Blood Count 3.88 M/mm3 (4.70-6.10); Red Cell Distribution Width 18.5 % (11.6-14.4); White Blood Count 7.5 K/mm3 (4.8-10.8)
[2020-09-21 06:13] LABS: Alanine Aminotransferase 21 U/L (16-63); Albumin Level 2.3 g/dL (3.4-5.0); Alkaline Phosphatase 56 U/L (46-116); Anion Gap 6 mmol/L (8-16); Aspartate Amino Transferase 14 U/L (15-37); Bilirubin,Total 0.6 mg/dL (0.00-1.00); Blood Urea Nitrogen 36 mg/dL (7-18); Calcium 8.1 mg/dL (8.5-10.1); Carbon Dioxide 27 mmol/L (21-32); Chloride 105 mmol/L (98-108); Estimated CRCL calculation 53 ml/min; Estimated Glomerular Filt Rate 49; Glucose 88 mg/dL (70-99); Magnesium 2.3 mg/dL (1.8-2.4); Osmolality Calculated 293 mOsm/kg (285-295); Sodium 138 mmol/L (136-145); Total Protein 5.9 g/dL (6.4-8.2)
[2020-09-21 08:00] VITALS: BP 157/79; PULSE 88; RESP 24; TEMP 37.2; O2SAT 95
[2020-09-21] MEDS: allopurinoL 300 MG TABLET PO (09:40)
[2020-09-21] MEDS: DOCUSATE SODIUM 100 MG CAPSULE PO (09:40)
[2020-09-21] MEDS: ATORVASTATIN 10 MG TABLET PO (09:40)
[2020-09-21] MEDS: predniSONE 20 MG TABLET PO (09:40)
[2020-09-21] MEDS: SACCHAROMYCES BOULARDII 250 MG CAPSULE PO ×2 (09:40→17:06)
[2020-09-21 09:41] VITALS: PULSE 88
[2020-09-21] MEDS: OXYBUTYNIN CHLORIDE 5 MG TABLET PO (09:41)
[2020-09-21] MEDS: lisinopriL 20 MG TABLET PO (09:41)
[2020-09-21] MEDS: FUROSEMIDE 40 MG TABLET PO ×2 (09:41→17:06)
[2020-09-21] MEDS: AMIODARONE HCL 200 MG TABLET PO ×2 (09:41→17:06)
[2020-09-21] MEDS: METOPROLOL TARTRATE 50 MG TAB PO ×2 (09:41→17:05)
[2020-09-21] MEDS: TAMSULOSIN HCL 0.4 MG CAPSULE PO ×2 (09:41→17:06)
[2020-09-21] MEDS: NYSTATIN 100,000 UNITS/ML SUSP 5 ML ORAL.SUSP PO ×3 (09:48→20:18)
[2020-09-21 16:15] VITALS: BP 111/59; PULSE 77; RESP 18; TEMP 36.5; O2SAT 98
[2020-09-21 17:05] VITALS: PULSE 77
[2020-09-21 17:06] VITALS: PULSE 77
[2020-09-21] MEDS: LOPERAMIDE HCL 2 MG CAPSULE PO (20:22)
[2020-09-21] MEDS: ACETAMINOPHEN 500 MG TABLET 1000 MG PO (20:28)
[2020-09-21 23:58] VITALS: BP 131/54; PULSE 68; RESP 18; TEMP 36.8; O2SAT 96
--- NOTE | 2020-09-22 02:39 | PC.NURSE ---
pt sleeping, no evidence of distress noted, belongings and call light within reach
--- NOTE | 2020-09-22 06:51 | PC.NURSE ---
PT called and said they didnt have an order for physical therapy; Dr. Bedolla notified and he said he would put an order in for PT.
[2020-09-22 08:00] VITALS: BP 109/67; PULSE 74; RESP 18; TEMP 36.7; O2SAT 97
[2020-09-22] MEDS: NYSTATIN 100,000 UNITS/ML SUSP 5 ML ORAL.SUSP PO ×4 (09:18→20:12)
[2020-09-22] MEDS: SACCHAROMYCES BOULARDII 250 MG CAPSULE PO ×3 (09:19→17:49)
[2020-09-22 09:20] VITALS: PULSE 74
[2020-09-22] MEDS: lisinopriL 20 MG TABLET PO (09:20)
[2020-09-22] MEDS: ACETAMINOPHEN 500 MG TABLET 1000 MG PO ×2 (09:20→23:42)
[2020-09-22] MEDS: AMIODARONE HCL 200 MG TABLET PO ×2 (09:20→17:52)
[2020-09-22] MEDS: predniSONE 20 MG TABLET PO (09:20)
[2020-09-22] MEDS: ATORVASTATIN 10 MG TABLET PO (09:20)
[2020-09-22 09:21] VITALS: PULSE 74
[2020-09-22] MEDS: OXYBUTYNIN CHLORIDE 5 MG TABLET PO (09:21)
[2020-09-22] MEDS: METOPROLOL TARTRATE 50 MG TAB PO ×2 (09:21→17:50)
[2020-09-22] MEDS: FUROSEMIDE 40 MG TABLET PO ×2 (09:21→17:52)
[2020-09-22] MEDS: TAMSULOSIN HCL 0.4 MG CAPSULE PO ×2 (09:21→17:52)
[2020-09-22] MEDS: allopurinoL 300 MG TABLET PO (09:21)
--- NOTE | 2020-09-22 13:38 | PM.EVENT ---
Event Note Event Note Event Note: Patient's vital signs and labs reviewed. Creatinine slightly elevated we will periodically check renal function
[2020-09-22 16:00] VITALS: BP 125/65; PULSE 67; RESP 18; TEMP 36.7; O2SAT 96
[2020-09-22 17:50] VITALS: PULSE 78
[2020-09-22 17:52] VITALS: PULSE 78
[2020-09-22] MEDS: LOPERAMIDE HCL 2 MG CAPSULE PO ×2 (18:08→20:15)
[2020-09-23] VITALS: BP 152/69; PULSE 63; RESP 18; TEMP 36.6; O2SAT 99
--- NOTE | 2020-09-23 03:32 | PC.NURSE ---
Pt. sleeping, no distress noted, pt. in side lying position and turns self, call light in reach.
--- NOTE | 2020-09-23 04:00 | PC.NURSE ---
Pt called wanting use BR, Pt. SBA c use of walker and gait belt, tolerated well. Pt. had no BM at this time but states he thought he could try to go. Pt. walked back to bed c slow gait. Call nguyen in reach.
[2020-09-23 08:00] VITALS: BP 128/65; PULSE 74; RESP 20; TEMP 36.4; O2SAT 93
[2020-09-23 08:51] VITALS: PULSE 74
[2020-09-23] MEDS: OXYBUTYNIN CHLORIDE 5 MG TABLET PO (08:51)
[2020-09-23] MEDS: NYSTATIN 100,000 UNITS/ML SUSP 5 ML ORAL.SUSP PO ×4 (08:51→20:34)
[2020-09-23] MEDS: SACCHAROMYCES BOULARDII 250 MG CAPSULE PO ×3 (08:51→16:57)
[2020-09-23] MEDS: AMIODARONE HCL 200 MG TABLET PO ×2 (08:51→16:57)
[2020-09-23] MEDS: METOPROLOL TARTRATE 50 MG TAB PO ×2 (08:51→16:57)
[2020-09-23] MEDS: allopurinoL 300 MG TABLET PO (08:51)
[2020-09-23] MEDS: ATORVASTATIN 10 MG TABLET PO (08:51)
[2020-09-23] MEDS: TAMSULOSIN HCL 0.4 MG CAPSULE PO ×2 (08:52→16:57)
[2020-09-23] MEDS: FERROUS SULFATE 324 MG TABLET PO (08:52)
[2020-09-23] MEDS: predniSONE 20 MG TABLET PO (08:52)
[2020-09-23] MEDS: FUROSEMIDE 40 MG TABLET PO ×2 (08:52→16:57)
[2020-09-23] MEDS: lisinopriL 20 MG TABLET PO (08:52)
--- NOTE | 2020-09-23 12:22 | P.PNCROSS_ITS ---
Event Note Event Note Event Note: Patient was discharged from [facility] with Eliquis 5 mg b.i.d., I went ahead and restarted that today due to his history of AFib.
--- NOTE | 2020-09-23 14:59 | PHAR ---
09/22/20 - verified pt.'s home med magic mouthwash. tls
[2020-09-23 16:00] VITALS: BP 147/58; PULSE 58; RESP 18; TEMP 36.1; O2SAT 99
[2020-09-23 16:57] VITALS: PULSE 65
--- NOTE | 2020-09-23 19:45 | PC.NURSE ---
Upon entering room for assessment, pt. dozing but awakens easily. Pt. denies any problems a this time, no distress noted. Pt. able to turn and position self in bed, call nguyen in reach.
[2020-09-23] MEDS: DOCUSATE SODIUM 100 MG CAPSULE PO (20:34)
[2020-09-23] MEDS: APIXABAN 2.5 MG TABLET 5 MG PO (20:35)
[2020-09-23 23:51] VITALS: BP 123/48; PULSE 60; RESP 20; TEMP 36.2; O2SAT 98
[2020-09-24 05:58] LABS: Hematocrit 30.9 % (37.0-46.0); Hemoglobin 9.4 g/dL (12.4-15.3); Mean Corpuscular HGB Conc 30.4 g/dL (32.0-36.0); Mean Corpuscular Hemoglobin 23.8 pg (27.0-31.0); Mean Corpuscular Volume 78.2 fL (78.0-102.0); Mean Platelet Volume 10.8 fl (8.7-11.0); Platelet Count Result 219 K/mm3 (150-420); Red Blood Count 3.95 M/mm3 (4.70-6.10); White Blood Count 6.1 K/mm3 (4.8-10.8)
[2020-09-24 06:10] LABS: Anion Gap 7 mmol/L (8-16); Blood Urea Nitrogen 41 mg/dL (7-18); Calcium 8.1 mg/dL (8.5-10.1); Carbon Dioxide 27 mmol/L (21-32); Chloride 101 mmol/L (98-108); Estimated CRCL calculation 43 ml/min; Estimated Glomerular Filt Rate 40; Glucose 92 mg/dL (70-99); Osmolality Calculated 290 mOsm/kg (285-295); Sodium 135 mmol/L (136-145)
[2020-09-24 08:00] VITALS: BP 110/78; PULSE 78; RESP 20; TEMP 37.1; O2SAT 95
[2020-09-24] MEDS: lisinopriL 20 MG TABLET PO (08:32)
[2020-09-24] MEDS: NYSTATIN 100,000 UNITS/ML SUSP 5 ML ORAL.SUSP PO ×4 (08:32→21:38)
[2020-09-24] MEDS: APIXABAN 2.5 MG TABLET 5 MG PO ×2 (08:32→21:38)
[2020-09-24] MEDS: predniSONE 20 MG TABLET PO (08:32)
[2020-09-24] MEDS: ATORVASTATIN 10 MG TABLET PO (08:32)
[2020-09-24] MEDS: TAMSULOSIN HCL 0.4 MG CAPSULE PO ×2 (08:32→16:14)
[2020-09-24 08:33] VITALS: PULSE 78
[2020-09-24] MEDS: allopurinoL 300 MG TABLET PO (08:33)
[2020-09-24] MEDS: AMIODARONE HCL 200 MG TABLET PO ×2 (08:33→16:14)
[2020-09-24] MEDS: OXYBUTYNIN CHLORIDE 5 MG TABLET PO (08:33)
[2020-09-24 08:34] VITALS: PULSE 78
[2020-09-24] MEDS: FUROSEMIDE 40 MG TABLET PO ×2 (08:34→16:14)
[2020-09-24] MEDS: SACCHAROMYCES BOULARDII 250 MG CAPSULE PO ×3 (08:34→16:14)
[2020-09-24] MEDS: METOPROLOL TARTRATE 50 MG TAB PO ×2 (08:34→16:14)
[2020-09-24] MEDS: FERROUS SULFATE 324 MG TABLET PO (08:34)
[2020-09-24] MEDS: DOCUSATE SODIUM 100 MG CAPSULE PO ×2 (08:34→21:38)
[2020-09-24] MEDS: ACETAMINOPHEN 500 MG TABLET 1000 MG PO (09:58)
--- NOTE | 2020-09-24 13:12 | P.PNIM_ITS ---
Progress Note: A&P Assessment and Plan (1) Joint swelling: Code(s): M25.40 - Effusion, unspecified joint <Stas StephensJEREMY-C - Last Filed: 09/24/20 14:19> Status: Acute <Stas Stephens RETAIL ADVISOR-C - Last Filed: 09/24/20 14:19> Assessment and Plan: 09/24/2020 uric acid level on 09/13/2020 was 12.4 which could be the cause of the joint swelling, patient is on allopurinol at home, unknown if he was taking this, will continue in-house, rechecking uric acid level today and will continue allopurinol and steroids <Stas StephensJEREMY-C - Last Filed: 09/24/20 14:19> (2) Generalized weakness: Code(s): R53.1 - Weakness <Stas Stephens RETAIL ADVISOR-C - Last Filed: 09/24/20 14:19> Status: Acute <Stas Stephens RETAIL ADVISOR-C - Last Filed: 09/24/20 14:19> Assessment and Plan: 09/24/2020 physical and occupational therapy to assist in st rengthening and endurance so the patient can perform ADLs <Stas StephensJEREMY- C - Last Filed: 09/24/20 14:19> (3) Acute exacerbation of CHF (congestive heart failure): Code(s): I50.9 - Heart failure, unspecified <Stas Alvaradodeandra RETAIL ADVISOR-C - Last Filed: 09/24/20 14:19> Status: Acute <Stas Stephens RETAIL ADVISOR-C - Last Filed: 09/24/20 14:19> Assessment and Plan: 09/24/2020 Will weigh daily, Continue Lasix 40 mg twice daily, monitor for any fluid overload <Stas Alvaradodeandra RETAIL ADVISOR-C - Last Filed: 09/24/20 14:19> (4) Scrotal edema: Code(s): N50.89 - Other specified disorders of the male genital organs <Stas Alvaradodeandra RETAIL ADVISOR-C - Last Filed: 09/24/20 14:19> Status: Acute <Stas Stephens RETAIL ADVISOR-C - Last Filed: 09/24/20 14:19> Assessment and Plan: * Continue wound care treatment and elevate scrotum <Stas Stephens RETAIL ADVISOR-C - Last Filed: 09/24/20 14:19> (5) Chronic anemia: Code(s): D64.9 - Anemia, unspecified <Stas Stephens RETAIL ADVISOR-C - Last Filed: 09/24/20 14:19> Status: Chronic <UZMA McneilN-C - Last Filed: 09/24/20 14:19> Assessment and Plan: 09/24/2020 chronic anemia which is 9.4/30.9, will continue to monitor <Stas Stephens RETAIL ADVISOR-C - Last Filed: 09/24/20 14:19> (6) Acute renal failure: Code(s): N17.9 - Acute kidney failure, unspecified <Stas Stephens RETAIL ADVISOR-C - Last Filed: 09/24/20 14:19> Status: Acute <Stas Stephens RETAIL ADVISOR-C - Last Filed: 09/24/20 14:19> Assessment and Plan: 09/24/2020 renal functions day BUN 41 creatinine clearance 43 creatinine 1.71 estimated GFR 40 all representing a downward trend, encouraged p.o. water, will continue to monitor periodically <Stas Stephens RETAIL ADVISOR-C - Last Filed: 09/24/20 14:19> (7) Hypertension: Code(s): I10 - Essential (primary) hypertension <Stas Stephens RETAIL ADVISOR-C - Last Filed: 09/24/20 14:19> Status: Chronic <Stas Stephens RETAIL ADVISOR-C - Last Filed: 09/24/20 14:19> Assessment and Plan: 09/24/2020 continue metoprolol lisinopril and Lasix, vital signs stable, continue to monitor, make changes to medications as needed <Stas Stephens RETAIL ADVISOR-C - Last Filed: 09/24/20 14:19> (8) BPH (benign prostatic hyperplasia): Code(s): N40.0 - Benign prostatic hyperplasia without lower urinary tract symptoms <Stas Stephens RETAIL ADVISOR-C - Last Filed: 09/24/20 14:19> Status: Chronic <BROOKE Mcneil - Last Filed: 09/24/20 14:19> Assessment and Plan: * Continue Flomax <BROOKE Mcneil - Last Filed: 09/24/20 14:19> (9) Hyperlipidemia: Code(s): E78.5 - Hyperlipidemia, unspecified
--- NOTE | 2020-09-24 13:12 | PM.IMPN ---
Progress Note: A&P Assessment and Plan (1) Joint swelling: Code(s): M25.40 - Effusion, unspecified joint <Stas Stephens ASBESTOS MICROSCOPIST-C - Last Filed: 09/24/20 14:19> Status: Acute <Stas Stephens ASBESTOS MICROSCOPIST-C - Last Filed: 09/24/20 14:19> Assessment and Plan: 09/24/2020 uric acid level on 09/13/2020 was 12.4 which could be the cause of the joint swelling, patient is on allopurinol at home, unknown if he was taking this, will continue in-house, rechecking uric acid level today and will continue allopurinol and steroids <Stas Stephens ASBESTOS MICROSCOPIST-C - Last Filed: 09/24/20 14:19> (2) Generalized weakness: Code(s): R53.1 - Weakness <Stas Stephens ASBESTOS MICROSCOPIST-C - Last Filed: 09/24/20 14:19> Status: Acute <Stas Stephens ASBESTOS MICROSCOPIST-C - Last Filed: 09/24/20 14:19> Assessment and Plan: 09/24/2020 physical and occupational therapy to assist in strengthening and endurance so the patient can perform ADLs <Stas Stephens ASBESTOS MICROSCOPIST-C - Last Filed: 09/24/20 14:19> (3) Acute exacerbation of CHF (congestive heart failure): Code(s): I50.9 - Heart failure, unspecified <Stas Stephens ASBESTOS MICROSCOPIST-C - Last Filed: 09/24/20 14:19> Status: Acute <Stas Stephens ASBESTOS MICROSCOPIST-C - Last Filed: 09/24/20 14:19> Assessment and Plan: 09/24/2020 Will weigh daily, Continue Lasix 40 mg twice daily, monitor for any fluid overload <Stas Alvaradodeandra ASBESTOS MICROSCOPIST-C - Last Filed: 09/24/20 14:19> (4) Scrotal edema: Code(s): N50.89 - Other specified disorders of the male genital organs <Stas Alvaradodeandra ASBESTOS MICROSCOPIST-C - Last Filed: 09/24/20 14:19> Status: Acute <Stas Stephens ASBESTOS MICROSCOPIST-C - Last Filed: 09/24/20 14:19> Assessment and Plan: Continue wound care treatment and elevate scrotum <Stas tSephensJEREMY-C - Last Filed: 09/24/20 14:19> (5) Chronic anemia: Code(s): D64.9 - Anemia, unspecified <Stas Stephens ASBESTOS MICROSCOPIST-C - Last Filed: 09/24/20 14:19> Status: Chronic <Stas Stephens ASBESTOS MICROSCOPIST-C - Last Filed: 09/24/20 14:19> Assessment and Plan: 09/24/2020 chronic anemia which is 9.4/30.9, will continue to monitor <Stas StephensUZMAN-C - Last Filed: 09/24/20 14:19> (6) Acute renal failure: Code(s): N17.9 - Acute kidney failure, unspecified <Stas Stephens ASBESTOS MICROSCOPIST-C - Last Filed: 09/24/20 14:19> Status: Acute <Stas StephensJEREMY-C - Last Filed: 09/24/20 14:19> Assessment and Plan: 09/24/2020 renal functions day BUN 41 creatinine clearance 43 creatinine 1.71 estimated GFR 40 all representing a downward trend, encouraged p.o. water, will continue to monitor periodically <Stas StephensJEREMY-C - Last Filed: 09/24/20 14:19> (7) Hypertension: Code(s): I10 - Essential (primary) hypertension <Stas AlvaradoJEREMY liriano-C - Last Filed: 09/24/20 14:19> Status: Chronic <Stas StephensJEREMY-C - Last Filed: 09/24/20 14:19> Assessment and Plan: 09/24/2020 continue metoprolol lisinopril and Lasix, vital signs stable, continue to monitor, make changes to medications as needed <Stas LunsfordEilzabeth ChristianoJEREMY liriano-C - Last Filed: 09/24/20 14:19> (8) BPH (benign prostatic hyperplasia): Code(s): N40.0 - Benign prostatic hyperplasia without lower urinary tract symptoms <Stas Alvaradodeandra ASBESTOS MICROSCOPIST-C - Last Filed: 09/24/20 14:19> Status: Chronic <Stas SBROOKE Lewis - Last Filed: 09/24/20 14:19> Assessment and Plan: Continue Flomax <Stas JonnBROOKE Lewis - Last Filed: 09/24/20 14:19> (9) Hyperlipidemia: Code(s): E78.5 - Hyperlipidemia, unspecified <BROOKE Mcneil - Last Filed: 09/24/20 14:19> Status: Chronic <BROOKE Mcneil - Last Filed: 09/24/20 14:19> Assessment and Plan: Continue statins <Stas Stephens APN-C - Last Filed: 09/24/20 14:19> (10) Atrial fibrillation: Code(s): I48.91 - Unspecified atrial fibrillation <
[2020-09-24 13:57] LABS: Uric Acid 8.4 mg/dL (3.5-7.2)
--- NOTE | 2020-09-24 14:24 | PC.NURSE ---
Wrist splint from home applied to right wrist, tolerated well,
[2020-09-24 15:35] VITALS: BP 112/68; PULSE 64; RESP 20; TEMP 36.9; O2SAT 94
[2020-09-24 16:14] VITALS: PULSE 76
[2020-09-24] MEDS: LIDOCAINE/PRILOCAINE CREAM 2.5-2.5% TUBE 1 EACH TOPICAL (16:16)
[2020-09-25] VITALS: BP 127/57; PULSE 58; RESP 20; TEMP 36.2; O2SAT 100
--- NOTE | 2020-09-25 07:52 | PM.IMPN ---
Progress Note: A&P Assessment and Plan (1) Joint swelling: Code(s): M25.40 - Effusion, unspecified joint Status: Acute Assessment and Plan: 09/24/2020 uric acid level on 09/13/2020 was 12.4 which could be the cause of the joint swelling, patient is on allopurinol at home, unknown if he was taking this, will continue in-house, rechecking uric acid level today and will continue allopurinol and steroids (2) Generalized weakness: Code(s): R53.1 - Weakness Status: Acute Assessment and Plan: 09/24/2020 physical and occupational therapy to assist in strengthening and endurance so the patient can perform ADLs (3) Acute exacerbation of CHF (congestive heart failure): Code(s): I50.9 - Heart failure, unspecified Status: Acute Assessment and Plan: 09/24/2020 Will weigh daily, Continue Lasix 40 mg twice daily, monitor for any fluid overload (4) Scrotal edema: Code(s): N50.89 - Other specified disorders of the male genital organs Status: Acute Assessment and Plan: Continue wound care treatment and elevate scrotum (5) Chronic anemia: Code(s): D64.9 - Anemia, unspecified Status: Chronic Assessment and Plan: 09/24/2020 chronic anemia which is 9.4/30.9, will continue to monitor (6) Acute renal failure: Code(s): N17.9 - Acute kidney failure, unspecified Status: Acute Assessment and Plan: 09/24/2020 renal functions day BUN 41 creatinine clearance 43 creatinine 1.71 estimated GFR 40 all representing a downward trend, encouraged p.o. water, will continue to monitor periodically (7) Hypertension: Code(s): I10 - Essential (primary) hypertension Status: Chronic Assessment and Plan: 09/24/2020 continue metoprolol lisinopril and Lasix, vital signs stable, continue to monitor, make changes to medications as needed (8) BPH (benign prostatic hyperplasia): Code(s): N40.0 - Benign prostatic hyperplasia without lower urinary tract symptoms Status: Chronic Assessment and Plan: Continue Flomax (9) Hyperlipidemia: Code(s): E78.5 - Hyperlipidemia, unspecified Status: Chronic Assessment and Plan: Continue statins (10) Atrial fibrillation: Code(s): I48.91 - Unspecified atrial fibrillation Status: Chronic Assessment and Plan: 09/24/2020 continue amiodarone and metoprolol at this time, telemetry shows sinus rhythm in the 60s with occasional PVCs, patient is currently on 5 mg b.i.d. Eliquis (11) Pressure ulcer: Qualifiers: Pressure injury location: unspecified location Pressure injury stage: stage 1 Qualified Code(s): L89.91 - Pressure ulcer of unspecified site, stage 1 Code(s): L89.90 - Pressure ulcer of unspecified site, unspecified stage Status: Acute Assessment and Plan: Multiple ulcers to heels, thigh, buttocks and scrotum Continue wound care instructions 09/24/2020 added EMLA cream b.i.d. for pain control of the stage I ulcerations eyes (12) Candidiasis, intertrigo: Code(s): B37.2 - Candidiasis of skin and nail Status: Acute Assessment and Plan: Continue nystatin antifungal cream (13) Multiple falls: Code(s): R29.6 - Repeated falls Status: Acute Assessment and Plan: Continue rehab (14) Wrist injury: Code(s): S69.90XA - Unspecified injury of unspecified wrist, hand and finger(s), initial encounter Status: Acute Assessment and Plan: 09/24/2020 patient states he does not have his wrist splint anymore and believes he may have thrown away, previous provider note states of Orthopedics recommended a wrist splint, will order another, patient follow-up with the orthopedic doctor 1 week post discharge Subjective Date/time seen: 09/25/20 07:52 Objective Data Vital Signs Vital Signs: Vital Signs - 24 hr 09/24/20 08:00 09/24/20 08:33 09/24/20 08:34 Temperature 9
[2020-09-25 08:00] VITALS: BP 122/40; PULSE 70; RESP 18; TEMP 37.4; O2SAT 100
[2020-09-25] MEDS: NYSTATIN 100,000 UNITS/ML SUSP 5 ML ORAL.SUSP PO ×4 (09:42→20:04)
[2020-09-25] MEDS: TAMSULOSIN HCL 0.4 MG CAPSULE PO ×2 (09:43→16:47)
[2020-09-25] MEDS: ACETAMINOPHEN 500 MG TABLET 1000 MG PO ×2 (09:43→20:04)
[2020-09-25] MEDS: FUROSEMIDE 40 MG TABLET PO ×2 (09:43→16:47)
[2020-09-25 09:44] VITALS: PULSE 77
[2020-09-25] MEDS: ATORVASTATIN 10 MG TABLET PO (09:44)
[2020-09-25] MEDS: AMIODARONE HCL 200 MG TABLET PO ×2 (09:44→16:47)
[2020-09-25] MEDS: FERROUS SULFATE 324 MG TABLET PO (09:44)
[2020-09-25] MEDS: predniSONE 20 MG TABLET PO (09:45)
[2020-09-25] MEDS: LIDOCAINE/PRILOCAINE CREAM 2.5-2.5% TUBE 1 EACH TOPICAL ×2 (09:45→16:47)
[2020-09-25] MEDS: OXYBUTYNIN CHLORIDE 5 MG TABLET PO (09:45)
[2020-09-25] MEDS: APIXABAN 2.5 MG TABLET 5 MG PO ×2 (09:45→20:05)
[2020-09-25] MEDS: allopurinoL 300 MG TABLET PO (09:45)
[2020-09-25] MEDS: SACCHAROMYCES BOULARDII 250 MG CAPSULE PO ×3 (09:45→16:48)
[2020-09-25 16:00] VITALS: BP 157/128; PULSE 56; RESP 18; TEMP 36.7; O2SAT 99
--- NOTE | 2020-09-25 16:17 | PC.NURSE ---
applied lidocaine cream to wound on right butt cheek per pt request, pt turned to left side, call light in reach
[2020-09-25 16:47] VITALS: PULSE 60
[2020-09-25] MEDS: METOPROLOL TARTRATE 50 MG TAB PO (16:47)
[2020-09-26] VITALS (7 sets, daily range): BP systolic 114–147; BP diastolic 53–84; PULSE 56–67; RESP 18–20; TEMP 36.4–37.3; O2SAT 95–99
[2020-09-26 05:30] LABS: Hematocrit 30.2 % (37.0-46.0); Hemoglobin 9.2 g/dL (12.4-15.3); Mean Corpuscular HGB Conc 30.5 g/dL (32.0-36.0); Mean Corpuscular Hemoglobin 23.5 pg (27.0-31.0); Mean Corpuscular Volume 77.2 fL (78.0-102.0); Mean Platelet Volume 10.6 fl (8.7-11.0); Platelet Count Result 164 K/mm3 (150-420); Red Blood Count 3.91 M/mm3 (4.70-6.10); Red Cell Distribution Width 19.1 % (11.6-14.4); White Blood Count 5.4 K/mm3 (4.8-10.8)
[2020-09-26 05:41] LABS: Anion Gap 7 mmol/L (8-16); Blood Urea Nitrogen 40 mg/dL (7-18); Calcium 8.3 mg/dL (8.5-10.1); Carbon Dioxide 26 mmol/L (21-32); Chloride 101 mmol/L (98-108); Estimated CRCL calculation 43 ml/min; Estimated Glomerular Filt Rate 39; Glucose 88 mg/dL (70-99); Osmolality Calculated 286 mOsm/kg (285-295); Sodium 134 mmol/L (136-145)
--- NOTE | 2020-09-26 06:11 | PC.NURSE ---
Inc lg amt of mushy brown stool. Inc care provided.
[2020-09-26] MEDS: ACETAMINOPHEN 500 MG TABLET 1000 MG PO (09:28)
[2020-09-26] MEDS: SACCHAROMYCES BOULARDII 250 MG CAPSULE PO ×3 (09:28→16:55)
[2020-09-26] MEDS: NYSTATIN 100,000 UNITS/ML SUSP 5 ML ORAL.SUSP PO ×4 (09:28→20:24)
[2020-09-26] MEDS: FERROUS SULFATE 324 MG TABLET PO (09:29)
[2020-09-26] MEDS: TAMSULOSIN HCL 0.4 MG CAPSULE PO ×2 (09:29→16:56)
[2020-09-26] MEDS: APIXABAN 2.5 MG TABLET 5 MG PO ×2 (09:29→20:23)
[2020-09-26] MEDS: predniSONE 20 MG TABLET PO (09:29)
[2020-09-26] MEDS: allopurinoL 300 MG TABLET PO (09:29)
[2020-09-26] MEDS: OXYBUTYNIN CHLORIDE 5 MG TABLET PO (09:29)
[2020-09-26] MEDS: ATORVASTATIN 10 MG TABLET PO (09:29)
[2020-09-26] MEDS: FUROSEMIDE 40 MG TABLET PO ×2 (09:29→16:53)
[2020-09-26] MEDS: METOPROLOL TARTRATE 50 MG TAB PO ×2 (09:30→16:54)
[2020-09-26] MEDS: AMIODARONE HCL 200 MG TABLET PO ×2 (09:30→16:53)
[2020-09-26] MEDS: lisinopriL 20 MG TABLET PO (09:30)
[2020-09-26] MEDS: LOPERAMIDE HCL 2 MG CAPSULE PO (09:32)
[2020-09-26] MEDS: LIDOCAINE/PRILOCAINE CREAM 2.5-2.5% TUBE 1 EACH TOPICAL ×2 (11:25→16:55)
--- NOTE | 2020-09-26 19:08 | PC.NURSE ---
report to rashard de leon
--- NOTE | 2020-09-27 02:16 | PC.NURSE ---
pt sleeping, no evidence of distress noted, belongings within reach
[2020-09-27 05:28] LABS: Basophils Absolute Auto 0.01 K/mm3 (0.00-0.10); Basophils Percent Auto 0.2 % (0.0-1.0); Eosinophils Absolute Auto 0.02 K/mm3 (0.02-0.50); Eosinophils Percent Auto 0.4 % (1.0-6.0); Hematocrit 30.7 % (37.0-46.0); Hemoglobin 9.3 g/dL (12.4-15.3); Immature Granulocyte Absolute 0.03 K/mm3 (0.00-0.00); Immature Granulocyte Percent A 0.6 % (0.0-0.0); Lymphocytes Absolute Auto 1.23 K/mm3 (1.10-4.50); Mean Corpuscular HGB Conc 30.3 g/dL (32.0-36.0); Mean Corpuscular Hemoglobin 23.8 pg (27.0-31.0); Mean Corpuscular Volume 78.5 fL (78.0-102.0); Monocytes Percent Auto 5.9 % (2.0-11.0); Neutrophils Absolute Auto 3.5 K/mm3 (1.7-7.2); Neutrophils Percent Auto 68.9 % (50.0-70.0); Platelet Count Result 162 K/mm3 (150-420); Red Blood Count 3.91 M/mm3 (4.70-6.10); Red Cell Distribution Width 19.1 % (11.6-14.4); White Blood Count 5.1 K/mm3 (4.8-10.8)
[2020-09-27 05:39] LABS: Anion Gap 6 mmol/L (8-16); Blood Urea Nitrogen 34 mg/dL (7-18); Calcium 8.2 mg/dL (8.5-10.1); Carbon Dioxide 27 mmol/L (21-32); Chloride 102 mmol/L (98-108); Estimated CRCL calculation 47 ml/min; Estimated Glomerular Filt Rate 42; Glucose 86 mg/dL (70-99); Osmolality Calculated 286 mOsm/kg (285-295); Sodium 135 mmol/L (136-145)
[2020-09-27 08:00] VITALS: BP 141/58; PULSE 72; RESP 18; TEMP 36.5; O2SAT 98
[2020-09-27] MEDS: NYSTATIN 100,000 UNITS/ML SUSP 5 ML ORAL.SUSP PO ×4 (09:37→20:33)
[2020-09-27] MEDS: SACCHAROMYCES BOULARDII 250 MG CAPSULE PO ×3 (09:38→16:56)
[2020-09-27] MEDS: ATORVASTATIN 10 MG TABLET PO (09:38)
[2020-09-27] MEDS: FUROSEMIDE 40 MG TABLET PO ×2 (09:38→16:55)
[2020-09-27] MEDS: APIXABAN 2.5 MG TABLET 5 MG PO ×2 (09:38→20:33)
[2020-09-27] MEDS: predniSONE 20 MG TABLET PO (09:38)
[2020-09-27 09:39] VITALS: PULSE 72
[2020-09-27] MEDS: lisinopriL 20 MG TABLET PO (09:39)
[2020-09-27] MEDS: ACETAMINOPHEN 500 MG TABLET 1000 MG PO (09:39)
[2020-09-27] MEDS: TAMSULOSIN HCL 0.4 MG CAPSULE PO ×2 (09:39→16:55)
[2020-09-27] MEDS: allopurinoL 300 MG TABLET PO (09:39)
[2020-09-27] MEDS: METOPROLOL TARTRATE 50 MG TAB PO (09:39)
[2020-09-27] MEDS: FERROUS SULFATE 324 MG TABLET PO (09:39)
[2020-09-27 09:40] VITALS: PULSE 72
[2020-09-27] MEDS: LIDOCAINE/PRILOCAINE CREAM 2.5-2.5% TUBE 1 EACH TOPICAL ×2 (09:40→16:56)
[2020-09-27] MEDS: AMIODARONE HCL 200 MG TABLET PO ×2 (09:40→16:55)
[2020-09-27] MEDS: OXYBUTYNIN CHLORIDE 5 MG TABLET PO (09:44)
[2020-09-27 16:00] VITALS: BP 130/55; PULSE 57; RESP 18; TEMP 36.6; O2SAT 99
[2020-09-27 16:55] VITALS: PULSE 57
[2020-09-27 23:57] VITALS: BP 129/50; PULSE 52; RESP 20; TEMP 36.4; O2SAT 94
[2020-09-28 08:00] VITALS: BP 130/53; PULSE 74; RESP 18; TEMP 36.5; O2SAT 94
[2020-09-28 10:18] VITALS: PULSE 74
[2020-09-28] MEDS: NYSTATIN 100,000 UNITS/ML SUSP 5 ML ORAL.SUSP PO ×4 (10:18→21:04)
[2020-09-28] MEDS: predniSONE 20 MG TABLET PO (10:18)
[2020-09-28] MEDS: METOPROLOL TARTRATE 50 MG TAB PO ×2 (10:18→16:59)
[2020-09-28] MEDS: TAMSULOSIN HCL 0.4 MG CAPSULE PO ×2 (10:18→16:59)
[2020-09-28] MEDS: SACCHAROMYCES BOULARDII 250 MG CAPSULE PO ×3 (10:18→16:58)
[2020-09-28] MEDS: OXYBUTYNIN CHLORIDE 5 MG TABLET PO (10:18)
[2020-09-28] MEDS: ACETAMINOPHEN 500 MG TABLET 1000 MG PO ×2 (10:19→22:33)
[2020-09-28] MEDS: ATORVASTATIN 10 MG TABLET PO (10:19)
[2020-09-28] MEDS: APIXABAN 2.5 MG TABLET 5 MG PO ×2 (10:19→21:04)
[2020-09-28] MEDS: FUROSEMIDE 40 MG TABLET PO ×2 (10:19→16:59)
[2020-09-28 10:20] VITALS: PULSE 74
[2020-09-28] MEDS: AMIODARONE HCL 200 MG TABLET PO ×2 (10:20→16:59)
[2020-09-28] MEDS: LIDOCAINE/PRILOCAINE CREAM 2.5-2.5% TUBE 1 EACH TOPICAL ×2 (10:20→16:59)
[2020-09-28] MEDS: allopurinoL 300 MG TABLET PO (10:20)
[2020-09-28] MEDS: FERROUS SULFATE 324 MG TABLET PO (10:20)
[2020-09-28 16:00] VITALS: BP 129/65; PULSE 65; RESP 18; TEMP 36.5; O2SAT 98
[2020-09-28] MEDS: traZODone HCL 50 MG TABLET PO (22:36)
[2020-09-29] VITALS (8 sets, daily range): BP systolic 110–137; BP diastolic 52–70; PULSE 60–62; RESP 16–20; TEMP 36.3–36.8; O2SAT 97–99
--- NOTE | 2020-09-29 00:12 | PC.NURSE ---
Pt. resting comfortably upon entering room for assessment, dozing, but awakens easily. Pt. reports no discomfort at this time. Pt. given water to drink and turns self s difficulty. Call nguyen in reach of pt.
[2020-09-29] MEDS: HYDROcodone/acetaminophen (*CRX) 5-325 MG TABLET 1 TAB PO ×2 (03:00→21:09)
--- NOTE | 2020-09-29 03:03 | PC.NURSE ---
Pt. awake, restless and requesting something else for pain. Pt. reports pain in bilat. hands that are keeping him awake. Pt. given [place] as per PRN order. Call nguyen in reach.
[2020-09-29 06:17] LABS: Hematocrit 31.6 % (37.0-46.0); Hemoglobin 9.3 g/dL (12.4-15.3); Mean Corpuscular HGB Conc 29.4 g/dL (32.0-36.0); Mean Corpuscular Hemoglobin 23.6 pg (27.0-31.0); Mean Corpuscular Volume 80.2 fL (78.0-102.0); Mean Platelet Volume 10.8 fl (8.7-11.0); Platelet Count Result 131 K/mm3 (150-420); Red Blood Count 3.94 M/mm3 (4.70-6.10); White Blood Count 5.3 K/mm3 (4.8-10.8)
[2020-09-29 06:33] LABS: Anion Gap 9 mmol/L (8-16); Blood Urea Nitrogen 33 mg/dL (7-18); Calcium 8.5 mg/dL (8.5-10.1); Carbon Dioxide 26 mmol/L (21-32); Chloride 102 mmol/L (98-108); Estimated CRCL calculation 44 ml/min; Estimated Glomerular Filt Rate 39; Glucose 87 mg/dL (70-99); Osmolality Calculated 290 mOsm/kg (285-295); Sodium 137 mmol/L (136-145)
--- NOTE | 2020-09-29 07:22 | PM.EVENT ---
Event Note Event Note Event Note: Renal function slowly getting worse BUN 33 creatinine 1.74 estimated creatinine clearance 44 assessment GFR 39, encourage p.o. fluids decrease Lasix from 40 b.i.d. to 20 b.i.d. will continue to monitor
[2020-09-29] MEDS: TAMSULOSIN HCL 0.4 MG CAPSULE PO ×2 (09:39→17:47)
[2020-09-29] MEDS: OXYBUTYNIN CHLORIDE 5 MG TABLET PO (09:39)
[2020-09-29] MEDS: NYSTATIN 100,000 UNITS/ML SUSP 5 ML ORAL.SUSP PO ×4 (09:39→21:11)
[2020-09-29] MEDS: allopurinoL 300 MG TABLET PO (09:39)
[2020-09-29] MEDS: lisinopriL 20 MG TABLET PO (09:39)
[2020-09-29] MEDS: METOPROLOL TARTRATE 50 MG TAB PO ×2 (09:39→17:47)
[2020-09-29] MEDS: APIXABAN 2.5 MG TABLET 5 MG PO ×2 (09:39→21:10)
[2020-09-29] MEDS: FERROUS SULFATE 324 MG TABLET PO (09:39)
[2020-09-29] MEDS: ATORVASTATIN 10 MG TABLET PO (09:39)
[2020-09-29] MEDS: AMIODARONE HCL 200 MG TABLET PO ×2 (09:40→17:47)
[2020-09-29] MEDS: SACCHAROMYCES BOULARDII 250 MG CAPSULE PO ×3 (09:40→17:47)
[2020-09-29] MEDS: predniSONE 20 MG TABLET PO (09:40)
[2020-09-29] MEDS: LIDOCAINE/PRILOCAINE CREAM 2.5-2.5% TUBE 1 EACH TOPICAL ×2 (09:40→17:47)
[2020-09-29] MEDS: FUROSEMIDE 20 MG TABLET PO ×2 (09:40→17:47)
[2020-09-30 07:20] VITALS: BP 138/83; PULSE 62; RESP 18; TEMP 36.5; O2SAT 99
[2020-09-30 08:51] VITALS: PULSE 62
[2020-09-30] MEDS: FERROUS SULFATE 324 MG TABLET PO (08:51)
[2020-09-30] MEDS: AMIODARONE HCL 200 MG TABLET PO ×2 (08:51→16:35)
[2020-09-30] MEDS: TAMSULOSIN HCL 0.4 MG CAPSULE PO ×2 (08:51→16:35)
[2020-09-30] MEDS: OXYBUTYNIN CHLORIDE 5 MG TABLET PO (08:51)
[2020-09-30] MEDS: predniSONE 20 MG TABLET PO (08:51)
[2020-09-30] MEDS: NYSTATIN 100,000 UNITS/ML SUSP 5 ML ORAL.SUSP PO ×2 (08:51→13:20)
[2020-09-30] MEDS: METOPROLOL TARTRATE 50 MG TAB PO ×2 (08:51→16:35)
[2020-09-30] MEDS: lisinopriL 20 MG TABLET PO (08:52)
[2020-09-30] MEDS: LIDOCAINE/PRILOCAINE CREAM 2.5-2.5% TUBE 1 EACH TOPICAL ×2 (08:52→16:36)
[2020-09-30] MEDS: APIXABAN 2.5 MG TABLET 5 MG PO ×2 (08:52→20:36)
[2020-09-30] MEDS: ATORVASTATIN 10 MG TABLET PO (08:52)
[2020-09-30] MEDS: SACCHAROMYCES BOULARDII 250 MG CAPSULE PO ×3 (08:52→16:36)
[2020-09-30] MEDS: allopurinoL 300 MG TABLET PO (08:52)
[2020-09-30] MEDS: FUROSEMIDE 20 MG TABLET PO ×2 (08:52→16:35)
[2020-09-30 16:30] VITALS: BP 126/67; PULSE 68; RESP 18; TEMP 36.5; O2SAT 96
[2020-09-30 16:35] VITALS: PULSE 68
[2020-09-30] MEDS: traZODone HCL 50 MG TABLET PO (20:46)
[2020-09-30] MEDS: ACETAMINOPHEN 500 MG TABLET 1000 MG PO (20:46)
[2020-10-01] VITALS (7 sets, daily range): BP systolic 131–145; BP diastolic 45–66; PULSE 62–78; RESP 18; TEMP 36.4–36.5; O2SAT 93–97
[2020-10-01] MEDS: AMIODARONE HCL 200 MG TABLET PO ×2 (08:38→16:56)
[2020-10-01] MEDS: SACCHAROMYCES BOULARDII 250 MG CAPSULE PO ×3 (08:38→17:00)
[2020-10-01] MEDS: OXYBUTYNIN CHLORIDE 5 MG TABLET PO (08:39)
[2020-10-01] MEDS: TAMSULOSIN HCL 0.4 MG CAPSULE PO ×2 (08:39→16:57)
[2020-10-01] MEDS: FERROUS SULFATE 324 MG TABLET PO (08:39)
[2020-10-01] MEDS: METOPROLOL TARTRATE 50 MG TAB PO ×2 (08:39→16:57)
[2020-10-01] MEDS: allopurinoL 300 MG TABLET PO (08:39)
[2020-10-01] MEDS: lisinopriL 20 MG TABLET PO (08:40)
[2020-10-01] MEDS: APIXABAN 2.5 MG TABLET 5 MG PO ×2 (08:40→20:59)
[2020-10-01] MEDS: ATORVASTATIN 10 MG TABLET PO (08:40)
[2020-10-01] MEDS: LIDOCAINE/PRILOCAINE CREAM 2.5-2.5% TUBE 1 EACH TOPICAL ×2 (08:40→16:58)
[2020-10-01] MEDS: predniSONE 20 MG TABLET PO (08:40)
[2020-10-01] MEDS: FUROSEMIDE 20 MG TABLET PO ×2 (08:40→16:58)
[2020-10-01] MEDS: traZODone HCL 50 MG TABLET PO (20:59)
[2020-10-01] MEDS: ACETAMINOPHEN 500 MG TABLET 1000 MG PO (21:00)
[2020-10-02] VITALS: BP 114/56; PULSE 60; RESP 18; TEMP 36.6; O2SAT 96
[2020-10-02 07:50] VITALS: BP 126/54; PULSE 65; RESP 18; TEMP 36.6; O2SAT 97
[2020-10-02 08:51] VITALS: PULSE 65
[2020-10-02] MEDS: METOPROLOL TARTRATE 50 MG TAB PO (08:51)
[2020-10-02] MEDS: TAMSULOSIN HCL 0.4 MG CAPSULE PO ×2 (08:51→17:51)
[2020-10-02] MEDS: lisinopriL 20 MG TABLET PO (08:51)
[2020-10-02] MEDS: APIXABAN 2.5 MG TABLET 5 MG PO ×2 (08:51→21:17)
[2020-10-02] MEDS: FERROUS SULFATE 324 MG TABLET PO (08:51)
[2020-10-02] MEDS: FUROSEMIDE 20 MG TABLET PO ×2 (08:51→17:51)
[2020-10-02] MEDS: ATORVASTATIN 10 MG TABLET PO (08:51)
[2020-10-02] MEDS: SACCHAROMYCES BOULARDII 250 MG CAPSULE PO ×3 (08:51→17:51)
[2020-10-02 08:52] VITALS: PULSE 65
[2020-10-02] MEDS: AMIODARONE HCL 200 MG TABLET PO ×2 (08:52→17:51)
[2020-10-02] MEDS: predniSONE 20 MG TABLET PO (08:52)
[2020-10-02] MEDS: LIDOCAINE/PRILOCAINE CREAM 2.5-2.5% TUBE 1 EACH TOPICAL ×2 (08:52→17:45)
[2020-10-02] MEDS: OXYBUTYNIN CHLORIDE 5 MG TABLET PO (08:52)
[2020-10-02] MEDS: allopurinoL 300 MG TABLET PO (08:52)
[2020-10-02 16:00] VITALS: BP 128/49; PULSE 60; RESP 18; TEMP 36.6; O2SAT 97
[2020-10-02 17:51] VITALS: PULSE 57
[2020-10-02] MEDS: ACETAMINOPHEN 500 MG TABLET 1000 MG PO (21:16)
[2020-10-03] VITALS: BP 119/44; PULSE 50; RESP 20; TEMP 36; O2SAT 97
--- NOTE | 2020-10-03 07:06 | PM.DS ---
DS: Admitting Diagnosis Admitting Diagnosis Admitting Diagnosis: Generalized weakness, physical decondition DS: Discharge Diagnosis Discharge Diagnosis (1) Joint swelling: Code(s): M25.40 - Effusion, unspecified joint Status: Acute Assessment and Plan: possibl secondary gout Uric Acid elevated 12.4 1 admission Bilateral x-rays of his hands: Right Hand Erosions at ulnar styloid and neck of third proximal phalanx, most likely gout. Polyarticular osteoarthritis. Left Hand XR Juxta-articular erosions at second distal interphalangeal joint and fourth and fifth proximal interphalangeal joints with soft tissue swelling, consistent with inflammatory arthropathy, most likely gout. Ultrasound-guided aspiration of right knee and right wrist-g stain as well as culture are negative.Synovial joint fluid shows signs of gout flare and no acute signs of infection with the WBC under 5000 and uric acid crystals present. continue allopurinol Continue steroids (2) Generalized weakness: Code(s): R53.1 - Weakness Status: Acute Assessment and Plan: ? Exhibit tolerance during physical activity as evidenced by a normal fluctuation of vital signs during physical activity. ? Patient will be ability to perform required activities of daily living. ? Provide appropriate nutrition for healing and strength. ? Use appropriate to prevent falls. ? Home with home health (3) Acute exacerbation of CHF (congestive heart failure): Code(s): I50.9 - Heart failure, unspecified Status: Acute Assessment and Plan: Compensated Continue Lasix 40 mg twice daily (4) Scrotal edema: Code(s): N50.89 - Other specified disorders of the male genital organs Status: Acute Assessment and Plan: Improved (5) Chronic anemia: Code(s): D64.9 - Anemia, unspecified Status: Chronic Assessment and Plan: Stable (6) Acute renal failure: Code(s): N17.9 - Acute kidney failure, unspecified Status: Acute Assessment and Plan: Stable Patient creatinine within normal limits (7) Hypertension: Code(s): I10 - Essential (primary) hypertension Status: Chronic Assessment and Plan: Patient blood pressure stable Continue lisinopril 20 mg daily (8) BPH (benign prostatic hyperplasia): Code(s): N40.0 - Benign prostatic hyperplasia without lower urinary tract symptoms Status: Chronic Assessment and Plan: Continue Flomax (9) Hyperlipidemia: Code(s): E78.5 - Hyperlipidemia, unspecified Status: Chronic Assessment and Plan: Continue statins (10) Atrial fibrillation: Code(s): I48.91 - Unspecified atrial fibrillation Status: Chronic Assessment and Plan: Controlled Continue amiodarone 200 mg twice daily, metoprolol 50 mg twice daily Patient discharged with Fiorella patient went into A. fib with RVR 09/11/2020 amiodarone restarted (11) Pressure ulcer: Qualifiers: Pressure injury location: unspecified location Pressure injury stage: stage 1 Qualified Code(s): L89.91 - Pressure ulcer of unspecified site, stage 1 Code(s): L89.90 - Pressure ulcer of unspecified site, unspecified stage Status: Acute Assessment and Plan: Improved Multiple ulcers to heels, thigh, buttocks and scrotum (12) Candidiasis, intertrigo: Code(s): B37.2 - Candidiasis of skin and nail Status: Acute Assessment and Plan: Improved (13) Multiple falls: Code(s): R29.6 - Repeated falls Status: Acute Assessment and Plan: Home with home health (14) Wrist injury: Code(s): S69.90XA - Unspecified injury of unspecified wrist, hand and finger(s), initial encounter Status: Acute Assessment and Plan: Wrist x-ray shows of foreign body. Dr. Cheng (plastic surgery) consulted for further evaluation and does not appear to have any issue
--- NOTE | 2020-10-03 07:06 | P.DS_ITS ---
DS: Admitting Diagnosis Admitting Diagnosis Admitting Diagnosis: Generalized weakness, physical decondition DS: Discharge Diagnosis Discharge Diagnosis (1) Joint swelling: Code(s): M25.40 - Effusion, unspecified joint Status: Acute Assessment and Plan: * possibl secondary gout * Uric Acid elevated 12.4 1 admission * Bilateral x-rays of his hands: Right Hand Erosions at ulnar styloid and neck of third proximal phalanx, most likely gout. Polyarticular osteoarthritis. Left Hand XR Juxta-articular erosions at second distal interphalangeal joint and fourth and fifth proximal interphalangeal joints with soft tissue swelling, consistent with inflammatory arthropathy, most likely gout. * Ultrasound-guided aspiration of right knee and right wrist-g stain as well as culture are negative.Synovial joint fluid shows signs of gout flare and no acute signs of infection with the WBC under 5000 and uric acid crystals present. * continue allopurinol * Continue steroids (2) Generalized weakness: Code(s): R53.1 - Weakness Status: Acute Assessment and Plan: ? Exhibit tolerance during physical activity as evidenced by a normal fluctuation of vital signs during physical activity. ? Patient will be ability to perform required activities of daily living. ? Provide appropriate nutrition for healing and strength. ? Use appropriate to prevent falls. ? Home with home health (3) Acute exacerbation of CHF (congestive heart failure): Code(s): I50.9 - Heart failure, unspecified Status: Acute Assessment and Plan: * Compensated * Continue Lasix 40 mg twice daily (4) Scrotal edema: Code(s): N50.89 - Other specified disorders of the male genital organs Status: Acute Assessment and Plan: * Improved (5) Chronic anemia: Code(s): D64.9 - Anemia, unspecified Status: Chronic Assessment and Plan: * Stable (6) Acute renal failure: Code(s): N17.9 - Acute kidney failure, unspecified Status: Acute Assessment and Plan: * Stable * Patient creatinine within normal limits (7) Hypertension: Code(s): I10 - Essential (primary) hypertension Status: Chronic Assessment and Plan: * Patient blood pressure stable * Continue lisinopril 20 mg daily (8) BPH (benign prostatic hyperplasia): Code(s): N40.0 - Benign prostatic hyperplasia without lower urinary tract symptoms Status: Chronic Assessment and Plan: * Continue Flomax (9) Hyperlipidemia: Code(s): E78.5 - Hyperlipidemia, unspecified Status: Chronic Assessment and Plan: * Continue statins (10) Atrial fibrillation: Code(s): I48.91 - Unspecified atrial fibrillation Status: Chronic Assessment and Plan: * Controlled * Continue amiodarone 200 mg twice daily, metoprolol 50 mg twice daily * Patient discharged with Eliquis * patient went into A. fib with RVR 09/11/2020 amiodarone restarted * (11) Pressure ulcer: Qualifiers: Pressure injury location: unspecified location Pressure injury stage: stage 1 Qualified Code(s): L89.91 - Pressure ulcer of unspecified site, stage 1 Code(s): L89.90 - Pressure ulcer of unspecified site, unspecified stage Status: Acute Assessment and Plan: * Improved * Multiple ulcers to heels, thigh, buttocks and scrotum (12) Candidiasis, intertrigo: Code(s): B37.2 - Candidiasis of skin and nail Status: Acute Assessment and Plan
[2020-10-03 08:00] VITALS: BP 147/65; PULSE 70; RESP 18; TEMP 36.6; O2SAT 98
[2020-10-03 09:08] VITALS: PULSE 70
[2020-10-03] MEDS: METOPROLOL TARTRATE 50 MG TAB PO (09:08)
[2020-10-03 09:09] VITALS: PULSE 70
[2020-10-03] MEDS: allopurinoL 300 MG TABLET PO (09:09)
[2020-10-03] MEDS: FUROSEMIDE 20 MG TABLET PO (09:09)
[2020-10-03] MEDS: FERROUS SULFATE 324 MG TABLET PO (09:09)
[2020-10-03] MEDS: lisinopriL 20 MG TABLET PO (09:09)
[2020-10-03] MEDS: TAMSULOSIN HCL 0.4 MG CAPSULE PO (09:09)
[2020-10-03] MEDS: ATORVASTATIN 10 MG TABLET PO (09:09)
[2020-10-03] MEDS: OXYBUTYNIN CHLORIDE 5 MG TABLET PO (09:09)
[2020-10-03] MEDS: APIXABAN 2.5 MG TABLET 5 MG PO (09:09)
[2020-10-03] MEDS: predniSONE 20 MG TABLET PO (09:09)
[2020-10-03] MEDS: AMIODARONE HCL 200 MG TABLET PO (09:09)
[2020-10-03] MEDS: SACCHAROMYCES BOULARDII 250 MG CAPSULE PO (09:09)
--- NOTE | 2020-10-06 13:03 | PC.NURSE ---
Pt states he received and understood his discharge instructions. Pt also states it was good, the people and the food were good .
== END 2020-10-03 09:41 | disposition home health service (06) | DRG 948 ==
PROVIDERS: Nurse Practitioner; Nurse Practitioner Family; Admitting Provider Emergency Medicine; PCP Family Medicine Adolescent Medicine; Visit Provider Emergency Medicine
DX: R53.1 Weakness (principal); I48.20 Chronic atrial fibrillation, unspecified; N17.9 Acute kidney failure, unspecified; I11.0 Hypertensive heart disease with heart failure; I50.9 Heart failure, unspecified; D64.9 Anemia, unspecified; E78.5 Hyperlipidemia, unspecified; L89.621 Pressure ulcer of left heel, stage 1; L89.611 Pressure ulcer of right heel, stage 1; L89.891 Pressure ulcer of other site, stage 1; L89.301 Pressure ulcer of unspecified buttock, stage 1; M25.40 Effusion, unspecified joint; R29.6 Repeated falls; N40.0 Benign prostatic hyperplasia without lower urinary tract symptoms; B37.2 Candidiasis of skin and nail; Z96.659 Presence of unspecified artificial knee joint; Z79.02 Long term (current) use of antithrombotics/antiplatelets; Z95.1 Presence of aortocoronary bypass graft
CPT/HCPCS: 36415; 80048; 80053; 83735; 84550; 85025; 85027; 97110; 97161; 97165; 97530; 97535; A9270; J7512

== ENCOUNTER 2020-10-13 13:49 | Outpatient (NON) | payer MEDICARE, SELFPAY ==
[2020-10-13 15:20] LABS: Basophils Percent Auto 0.3 % (0.2-1.2); Eosinophils Absolute Auto 0.1 K/mm3 (0-0.3); Eosinophils Percent Auto 1.8 % (0-4.4); Hematocrit 29.3 % (42.0-52.0); Immature Granulocyte Absolute 0.02 K/mm3 (0.00-0.031); Immature Granulocyte Percent A 0.5 % (0-0.5); Lymphocytes Absolute Auto 0.94 K/mm3 (0.9-3.2); Mean Corpuscular HGB Conc 30.7 g/dl (32-36); Mean Corpuscular Hemoglobin 25.4 pg (26-34); Mean Corpuscular Volume 82.5 fl (80-100); Mean Platelet Volume 10.9 fl (7.4-10.4); Monocytes Absolute Auto 0.2 K/mm3 (0.1-0.6); Monocytes Percent Auto 5.4 % (2.6-8.5); Neutrophils Absolute Auto 2.7 K/mm3 (1.3-6.7); Platelet Count Result 105 k/mm3 (150-375); Red Blood Count 3.55 M/mm3 (4.6-6.20); Red Cell Distribution Width 24.1 % (11.5-14.5); White Blood Count 3.9 K/mm3 (4.5-10.0)
[2020-10-13 15:32] LABS: Anion Gap 6 mmol/L (8-16); Blood Urea Nitrogen 22 mg/dL (9-20); Calcium 8.2 mg/dL (8.4-10.2); Carbon Dioxide 18 mmol/L (22-30); Chloride 107 mmol/L (98-107); Estimated Glomerular Filt Rate 50; Glucose 89 mg/dL (75-110); Potassium 4.5 mmol/L (3.4-5.0); Sodium 131 mmol/L (137-145)
== END 2020-10-13 13:50 ==
PROVIDERS: PCP Family Medicine Adolescent Medicine; Visit Provider Family Medicine Adolescent Medicine
DX: M10.09 Idiopathic gout, multiple sites (principal); M62.82 Rhabdomyolysis; M15.9 Polyosteoarthritis, unspecified; N50.89 Other specified disorders of the male genital organs
CPT/HCPCS: 80048; 85025

== ENCOUNTER 2020-12-12 20:00 | Inpatient (IN) | payer MEDICARE, SELFPAY ==
--- NOTE | ~2020-12-12 | CT_ITS ---
EXAMINATION: CT abdomen pelvis wo con EXAM DATE: 12/13/2020 02:08 INDICATION: Diarrhea. TECHNIQUE: Spiral CT of the abdomen and pelvis was performed without contrast. Axial, coronal and sag ittal images were reviewed. The dose-length product (DLP) for this examination was 1240.25 mGy-cm. The exposure was tailored according to patient size (auto mA exposure control), and iterative reconst ruction (ASIR) was used as additional dose reduction technique. Comparison is made to prior examinati on from 09/13/2020. FINDINGS: There is no nephrolithiasis or hydronephrosis. Mild bilateral renal atrophy. The prostate i s unremarkable. The bladder is unremarkable. Again there is significant splenomegaly, spleen measur ing 21.6 cm in craniocaudal dimension. Liver, adrenal glands and pancreas are unremarkable. Some scat tered reactive periportal lymph nodes unchanged. The gallbladder is distended but otherwise unremark able. There is no biliary duct dilation. There is no retroperitoneal or pelvic lymphadenopathy. S tatus post right inguinal hernia repair with recurrent moderate-sized hernia. There is small left ing uinal hernia. The appendix is not positively visualized. There is no pericecal inflammatory change to suggest appe ndicitis. There is small sliding gastroesophageal hiatal hernia with larger amount of surrounding f at herniating. There is only small amount of colonic contents, fluid at the cecum. Mildly diffusely thickened colon wall could indicate edema, colitis. Trace fluid in the left colic gutter without any underlying etiology identified. No free intraperitoneal gas. There is cardiomegaly and small righ t pleural effusion. Pulmonary vascular congestion. The lung bases are unremarkable. There are no os teoblastic or osteolytic lesions identified. IMPRESSION: 1. Probable colitis. Cecal fluid, correlate for diarrhea. 2. Severe splenomegaly unchanged. 3. Distended but otherwise unremarkable gallbladder. 4. Cardiomegaly, small right pleural effusion. Congestive changes. 5. Inguinal fat-containing hernias. Prior right hernia repair. Reviewed, dictated and finalized at location A.
[2020-12-12 20:06] VITALS: BP 112/49; PULSE 64; RESP 16; TEMP 36.1; O2SAT 98
[2020-12-12 20:29] LABS: Basophils Percent Auto 0.1 % (0.2-1.2); Eosinophils Percent Auto 0.1 % (0-4.4); Hematocrit 31.1 % (42.0-52.0); Hemoglobin 9.8 g/dL (14.0-18.0); Immature Granulocyte Absolute 0.15 K/mm3 (0.00-0.031); Immature Granulocyte Percent A 0.9 % (0-0.5); Immature Platelet Fraction Pct 4.2 % (0.9-11.2); Lymphocytes Absolute Auto 1.18 K/mm3 (0.9-3.2); Lymphocytes Percent Auto 6.8 % (18.3-44.2); Mean Corpuscular HGB Conc 31.5 g/dl (32-36); Mean Corpuscular Hemoglobin 28.4 pg (26-34); Mean Corpuscular Volume 90.1 fl (80-100); Mean Platelet Volume 11.7 fl (7.4-10.4); Monocytes Absolute Auto 0.7 K/mm3 (0.1-0.6); Monocytes Percent Auto 4.2 % (2.6-8.5); Neutrophils Absolute Auto 15.4 K/mm3 (1.3-6.7); Neutrophils Percent Auto 87.9 % (45.5-73.1); Platelet Count Result 138 k/mm3 (150-375); Red Blood Count 3.45 M/mm3 (4.6-6.20); Red Cell Distribution Width 16.7 % (11.5-14.5); White Blood Count 17.5 K/mm3 (4.5-10.0)
[2020-12-12 20:38] LABS: Alanine Aminotransferase 10 U/L (4-50); Alkaline Phosphatase 76 U/L (38-126); Anion Gap 13 mmol/L (8-16); Aspartate Amino Transferase 17 U/L (17-59); Bilirubin,Total 0.8 mg/dL (0.2-1.3); Blood Urea Nitrogen 53 mg/dL (9-20); Carbon Dioxide 21 mmol/L (22-30); Chloride 97 mmol/L (98-107); Estimated CRCL calculation 23 ml/min; Estimated Glomerular Filt Rate 22; Glucose 109 mg/dL (75-110); Lipase 169 U/L (23-300); Potassium 3.6 mmol/L (3.4-5.0); Sodium 131 mmol/L (137-145)
--- NOTE | 2020-12-12 20:49 | ED.NAVMDI ---
HPI - Nausea/Vomiting/Diarrhea General Chief complaint: Nausea/Vomiting/Diarrhea Stated complaint: fever, diarrhea Time Seen by Provider: 12/12/20 20:38 Source: patient Mode of arrival: ambulatory Limitations: no limitations History of Present Illness HPI Narrative: Patient is a 70-year-old male complaining of diarrhea described as loose watery, nonbloody that started 2 days ago after receiving the Covid vaccine. Patient also states that he felt warm yesterday but not today. Patient states that he has not been feeling well since he received a vaccine. Patient denies any nausea, vomiting, or abdominal pain. Patient denies any chest pain or shortness of breath. Related Data Allergies Allergy/AdvReac Type Severity Reaction Status Date / Time No Known Allergies Allergy Verified 09/07/20 15:51 Review of Systems Review of Systems: All systems reviewed & are unremarkable except as noted in HPI and below Constitutional: Constitutional: Denies body ache(s), Denies chills, Denies excessive sweating, Denies fatigue, Denies fever(s), Denies headache(s), Denies lethargy, Denies malaise, Denies weakness and Denies weight loss Eyes: Eyes: Denies blurry vision, Denies change in vision and Denies loss of vision ENT: Denies dizziness, Denies ear discharge, Denies headache(s), Denies lip swelling, Denies epistaxis, Denies nasal congestion, Denies neck pain, Denies throat swelling and Denies tongue swelling Cardiovascular: Cardiovascular: Denies chest pain, Denies chest pain at rest, Denies chest pain with activity, Denies diaphoresis, Denies rapid heart rate, Denies edema, Denies irregular heart rhythm, Denies lightheadedness, Denies palpitations, Denies dyspnea and Denies dyspnea on exertion Respiratory: Respiratory: Denies chest congestion, Denies cough, Denies hemoptysis, Denies dyspnea and Denies dyspnea on exertion Gastrointestinal: Gastrointestinal: Denies abdominal pain, Denies melena, Denies hematochezia, Denies diarrhea and Denies hematemesis Musculoskeletal: Musculoskeletal: Denies abnormal gait, Denies deformity, Denies joint swelling, Denies limited range of motion, Denies neck pain and Denies numbness Neurologic: Denies Abnormal speech present, Denies abnormal gait, Denies confusion, Denies dizziness, Denies headache(s), Denies focal weakness, Denies loss of vision, Denies numbness, Denies Other visual disturbances, Denies Sensory deficit (Neuro) and Denies weakness Psychiatric: Psychiatric: Denies confusion, Denies depression, Denies auditory hallucinations, Denies homicidal ideation and Denies suicidal ideation Endocrine: Endocrine: Denies cold intolerance, Denies excessive sweating, Denies fatigue, Denies heat intolerance and Denies palpitations Hematologic/Lymphatic: Hematologic/Lymphatic: Denies easy bleeding and Denies easy bruising Allergic/Immunologic: Allergic/Immunologic: Denies lip swelling, Denies throat swelling and Denies tongue swelling PMFSH Past Medical History Medical History Atrial fibrillation Treated with ablation currently on anticoagulation. BPH (benign prostatic hyperplasia) Chronic anemia Hyperlipidemia Hypertension Surgical History Surgical History H/O heart bypass surgery 3 way bypass H/O hernia repair Right lower abdomen with mesh History of cardiac radiofrequency ablation History of knee replacement Family History Family History Sibling Atrial fibrillation Father Heart disease Mother Congestive heart failure Social History Social History Social History: The patient never or had any children. 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 He does not have a durable power transactional attorney for healthcare. He desires to be a full code. The patient stated t
[2020-12-12] MEDS: LACTATED RINGERS 1,000 ML 250 ML IV CONT (21:12)
[2020-12-12 21:15] VITALS: BP 124/51; PULSE 60; RESP 18; TEMP 36.8; O2SAT 97
[2020-12-12 23:46] VITALS: BP 136/60; PULSE 61; RESP 18; O2SAT 97
[2020-12-12] MEDS: metroNIDAZOLE 500 MG/ISO 100ML 500 MG/100 ML BAG 100 MG IVPB (23:48)
[2020-12-12] MEDS: LOPERAMIDE HCL 2 MG CAPSULE 4 MG PO (23:49)
[2020-12-13] VITALS (8 sets, daily range): BP systolic 115–130; BP diastolic 46–59; PULSE 57–72; RESP 18–20; TEMP 35.7–36.6; O2SAT 92–99; BMI 33.7
[2020-12-13 00:15] LABS: Add Urine Microscopic? YES; Appearance Urine Cloudy (Clear); Bacteria Urine 3+ /hpf; Bilirubin Urine Negative (Negative); Blood Urine Negative (Negative); Color Urine Yellow (Yellow); Glucose Urine UA Negative (Negative); Ketones Urine Negative (Negative); Leukocyte Esterase Ur 2+ LEU/UL (Negative); Mucus Urine Rare /lpf; Nitrate Urine Negative (Negative); Protein Urine Negative (Negative); RBC Urine 0-2 /hpf (0-2); Specific Grav Ur 1.009 (1.001-1.035); Squamous Epithelial Cell Urine Occasional /hpf (Few); Urobilinogen Urine Negative mg/dL (<2.0); WBC Urine 21-30 /hpf
[2020-12-13] MEDS: LACTATED RINGERS 1,000 ML 90 ML IV CONT (01:15)
--- NOTE | 2020-12-13 01:21 | ADMGEN ---
This patient, Justus Rodriguez, was admitted to Medical Room 240-01 @0055 12/13/20. Patient/family oriented to hospital policies and general routines including ID bracelet, bed and alarms, visiting hours, pain management, procedures, bathroom and other care routines, personal items, smoking policy, room service/diet, and visiting hours. Information on how to activate the Rapid Response Team has been discussed. Patient/Family are encouraged to report perceived risks to care and to ask questions if they do not understand what they are told or what they should do.
[2020-12-13] MEDS: LACTATED RINGERS 1,000 ML 125 ML IV CONT (03:32)
--- NOTE | 2020-12-13 03:35 | PC.NURSE ---
[address] Hernandez, order CT of the Abdomen/Pelvis wo contrast for diarrhea and change IV fluid rate from 90 to 125 mls/hr
[2020-12-13] MEDS: VANCOMYCIN ORAL 125 MG/2.5 ML SYRUP PO ×3 (05:27→17:21)
[2020-12-13 05:34] LABS: Hematocrit 26.9 % (42.0-52.0); Hemoglobin 8.6 g/dL (14.0-18.0); Immature Platelet Fraction Pct 4.2 % (0.9-11.2); Mean Corpuscular Hemoglobin 28.6 pg (26-34); Mean Corpuscular Volume 89.4 fl (80-100); Mean Platelet Volume 12.1 fl (7.4-10.4); Platelet Count Result 117 k/mm3 (150-375); Red Blood Count 3.01 M/mm3 (4.6-6.20); Red Cell Distribution Width 16.6 % (11.5-14.5); White Blood Count 12.3 K/mm3 (4.5-10.0)
[2020-12-13 05:44] LABS: Anion Gap 9 mmol/L (8-16); Blood Urea Nitrogen 50 mg/dL (9-20); Calcium 8.6 mg/dL (8.4-10.2); Carbon Dioxide 22 mmol/L (22-30); Chloride 100 mmol/L (98-107); Estimated CRCL calculation 28 ml/min; Estimated Glomerular Filt Rate 23; Glucose 94 mg/dL (75-110); Potassium 3.1 mmol/L (3.4-5.0); Sodium 131 mmol/L (137-145)
--- NOTE | 2020-12-13 06:03 | PM.IMHP ---
H&P: HPI History of Present Illness Date/Time: 12/13/20 06:03 Chief Complaint: 2 days of diarrhea Narrative: 70-year-old male with a past medical history of atrial fibrillation, hyperlipidemia, hypertension, BPH and chronic kidney disease who presented to the ER with 2 days of diarrhea. The patient reported he received his 2nd COVID vaccine 5 days ago (on Tuesday). The next day he developed watery diarrhea with multiple loose stools a day. He reports feeling warm on the but his temperature was only 99?. He has been afebrile since presentation to the ER. He reports 1 episode of emesis on the . He has had some minimal nausea. He denies any abdominal pain. He reports that he feels slightly hungry. He denies any dysuria or hematuria. He does have a history of urinary frequency and urgency. He reports that his Lasix dose was increased from 20 mg p.o. t.i.d. to 40 mg b.i.d.. He reports that he has had less swelling of his legs over the last couple of days than what is his baseline. He denies any recent travel. He has not had any ill contacts. He drinks city water. He has not been on any antibiotic therapy since September. Review of Systems Review of Systems: Narrative: 12 systems were reviewed with pertinent positives and negatives per HPI. Except as documented in the HPI, all other systems were reviewed and are negative. [facility] Past Medical History Medical History (Updated 12/13/20 @ 07:45 by Angelika Hernandez DO) Atrial fibrillation Treated with ablation currently on anticoagulation. BPH (benign prostatic hyperplasia) CHF (congestive heart failure) Echo 09/07/2020: Left ventricular dimension mildly enlarged, EF 60-65%, mildly increased left ventricular wall thickness, abnormal ventricular septal wall motion due to bundle branch block, diastolic function indeterminate, severe left atrial enlargement, moderate right atrial enlargement, mild mitral valve regurgitation, [id number] tricuspid valve regurgitation, moderate pulmonary hypertension with RVSP of 55 Chronic anemia Chronic kidney disease, stage III (moderate) With baseline creatinine between 1.4-1.7 Hearing loss of aging Extremely hard of hearing Hyperlipidemia Hypertension Surgical History Surgical History (Updated 12/13/20 @ 07:45 by Angelika Hernandez DO) H/O heart bypass surgery (~10/2014) 3 way bypass History of cardiac radiofrequency ablation (~09/15/20) History of right inguinal hernia repair (~2009) With mesh with subsequent recurrence of hernia History of total left knee replacement Status post right knee replacement (~2011) Family History Family History Sibling Atrial fibrillation Father Heart disease Mother Congestive heart failure Social History Social History (Updated 12/13/20 @ 06:16 by Angelika Hernandez DO) Social History: He has never been and does not have any children. 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 He is a lifelong nonsmoker and only rarely drinks alcohol in small amounts. He does not use illicit substances. Primary care physician: Dr. Leon Cordero Code status: Full code (the patient does not have written advanced directives) Surrogate decision maker: Mariusz (brother) Smoking status: Never smoker Alcohol intake: never Substance use: never Substance use type: does not use Gender identity (if verbalized by the patient): Male Spiritual care concerns: No Meds Home Medications and Allergies Home Medications Medication Instructions Recorded Confirmed Type Eliquis 5 mg PO BID #30 tablet 10/03/20 12/13/20 Rx allopurinol 300 mg PO DAILY #30 tablet 10/03/20 12/13/20 Rx amiodarone [Pacerone] 200 mg PO BID #60 tablet 10/03/20 12/13/20 Rx atorvastatin 10 mg PO DAILY #30 tablet 10/03/20 12/13/20 Rx doxazosin 8 mg PO BID #30 tablet 10/03/20 12/13/20 Rx lisinopril 20 mg PO DAILY #30 tablet
[2020-12-13] MEDS: OXYBUTYNIN CHLORIDE 5 MG TABLET PO (08:18)
[2020-12-13] MEDS: APIXABAN 5 MG TABLET PO ×2 (08:18→17:22)
[2020-12-13] MEDS: allopurinoL 100 MG TABLET PO (08:18)
[2020-12-13] MEDS: POTASSIUM CHLORIDE 20 MEQ PACKET (FOR LIQUID) 40 MEQ PO (08:18)
[2020-12-13] MEDS: DOXAZOSIN MESYLATE 4 MG TABLET 8 MG PO ×2 (08:18→20:17)
[2020-12-13] MEDS: TAMSULOSIN HCL 0.4 MG CAPSULE PO ×2 (08:18→17:21)
[2020-12-13] MEDS: SACCHAROMYCES BOULARDII 250 MG CAPSULE PO ×2 (08:18→17:21)
[2020-12-13] MEDS: ATORVASTATIN 10 MG TABLET PO (08:18)
[2020-12-13] MEDS: lisinopriL 20 MG TABLET PO (08:18)
[2020-12-13] MEDS: AMIODARONE HCL 200 MG TABLET PO ×2 (08:19→20:17)
[2020-12-13] MEDS: METOPROLOL TARTRATE 50 MG TAB PO ×2 (08:19→20:17)
[2020-12-13] MEDS: LACTATED RINGERS 1,000 ML 100 ML IV CONT (13:38)
--- NOTE | 2020-12-13 14:30 | PM.EVENT ---
Event Note Event Note Event Note: pt has been seen by my colleague at 6am this morning. Medical record has been reviewed and pt has UTI. Currently on Zosyn and Vanco PO for colitis pending Cdiff results. Zosyn will cover for UTI at this time and I follow cultures. Potassium was repleted this am. Will cont to monitor electrolyte abnormalities w am labs. VS WNL and pt doing ok at time of my rounds.
[2020-12-14] MEDS: VANCOMYCIN ORAL 125 MG/2.5 ML SYRUP PO ×4 (00:17→17:14)
[2020-12-14] MEDS: LACTATED RINGERS 1,000 ML 100 ML IV CONT (04:00)
[2020-12-14 06:00] VITALS: BP 129/60; PULSE 60; RESP 18; TEMP 36.2; O2SAT 97
[2020-12-14 09:05] VITALS: PULSE 62
[2020-12-14] MEDS: ATORVASTATIN 10 MG TABLET PO (09:05)
[2020-12-14] MEDS: AMIODARONE HCL 200 MG TABLET PO ×2 (09:05→21:26)
[2020-12-14] MEDS: APIXABAN 5 MG TABLET PO ×2 (09:05→17:15)
[2020-12-14] MEDS: OXYBUTYNIN CHLORIDE 5 MG TABLET PO (09:05)
[2020-12-14] MEDS: SACCHAROMYCES BOULARDII 250 MG CAPSULE PO ×2 (09:05→17:14)
[2020-12-14] MEDS: TAMSULOSIN HCL 0.4 MG CAPSULE PO ×2 (09:05→17:15)
[2020-12-14] MEDS: lisinopriL 20 MG TABLET PO (09:05)
[2020-12-14 09:08] VITALS: PULSE 62
[2020-12-14] MEDS: METOPROLOL TARTRATE 50 MG TAB PO ×2 (09:08→21:26)
[2020-12-14] MEDS: DOXAZOSIN MESYLATE 4 MG TABLET 8 MG PO ×2 (09:09→21:27)
[2020-12-14] MEDS: allopurinoL 100 MG TABLET PO (09:09)
[2020-12-14 14:00] VITALS: BP 113/52; PULSE 58; RESP 16; TEMP 36.3; O2SAT 100
--- NOTE | 2020-12-14 14:13 | PM.IMPN ---
Progress Note: A&P Assessment and Plan (1) Colitis: Code(s): K52.9 - Noninfective gastroenteritis and colitis, unspecified Status: Acute (2) Acute kidney injury superimposed on chronic kidney disease: Code(s): N17.9 - Acute kidney failure, unspecified; N18.9 - Chronic kidney disease, unspecified Status: Acute (3) Acute dehydration: Code(s): E86.0 - Dehydration Status: Acute Additional Plan 12/14/20 WBC downtrending renal function improving pt denies diarrhea Stool cultures and C diff pending requesting diet to be changed to regular Discontinue IV fluids Continue IV antibiotic therapy Anticipate discharge in 24-48 Time Spent With Patient Time with patient: 25 - 35 minutes Subjective Date/time seen: 12/14/20 14:13 Patient doing okay has no complaints at of my interview. Other than requesting to have his diet changed from cardiac to regular. Patient advised that given his history of heart disease and hypertension that he should remain on a cardiac diet. He has no abdominal pain he has no urinary symptoms he is urinating okay without difficulty. Exam Narrative: Exam Narrative: GEN: NAD, AAOx3, cooperative, obesity HEENT: NCAT, MMM, EOMI Neck: no JVD Lungs: symmetric rise no use of accessory muscles Abd: soft, NT, ND, bowel sounds normoactive Ext: no edema, no cyanosis Objective Data Vital Signs Vital Signs: Vital Signs - 24 hr 12/13/20 20:17 12/13/20 21:30 12/13/20 21:40 Temperature 97.0 F L Pulse Rate 72 72 Respiratory Rate 18 Blood Pressure 130/59 L Pulse Oximetry 97 98 12/14/20 06:00 12/14/20 09:05 12/14/20 09:08 Temperature 97.1 F L Pulse Rate 60 62 62 Respiratory Rate 18 Blood Pressure 129/60 Pulse Oximetry 97 Intake/Output Intake/Output: Intake & Output 12/11/20 12/12/20 12/13/20 12/14/20 23:59 23:59 23:59 23:59 Intake Total 1000 2630 660 Output Total 1000 1000 Balance 1000 1630 -340 Meds/Results Medications: Active Medications Generic Name Dose Route Start Last Admin Trade Name Freq PRN Reason Stop Dose Admin Allopurinol 100 mg 12/13/20 09:00 12/14/20 09:09 Allopurinol 100 Mg Tablet PO 100 mg DAILY TERRENCE Administration Amiodarone HCl 200 mg 12/13/20 09:00 12/14/20 09:05 Amiodarone Hcl 200 Mg Tablet PO 200 mg Q12HR TERRENCE Administration Apixaban 5 mg 12/13/20 09:00 12/14/20 09:05 Apixaban 5 Mg Tablet PO 5 mg BID TERRENCE Administration Atorvastatin Calcium 10 mg 12/13/20 09:00 12/14/20 09:05 Atorvastatin 10 Mg Tablet PO 10 mg DAILY TERRENCE Administration Doxazosin Mesylate 8 mg 12/13/20 09:00 12/14/20 09:09 Doxazosin Mesylate 4 Mg Tablet PO 8 mg Q12HR TERRENCE Administration Lactated Ringer's 1,000 mls @ 100 mls/hr 12/13/20 02:20 12/14/20 04:00 Lr - Lactated Ringers Iv IV CONT 100 mls/hr .Q10H TERRENCE Administration Piperacillin Sod/Tazobactam Sod 2.25 gm in 50 mls @ 100 mls/hr 12/13/20 03:50 12/14/20 12:07 Zosyn 2.25 Gm/D5w 50 Ml IVPB 100 mls/hr Q6HR TERRENCE Administration Lisinopril 20 mg 12/13/20 09:00 12/14/20 09:05 Lisinopril 20 Mg Tablet PO 20 mg DAILY TERRENCE Administration Metoprolol Tartrate 50 mg 12/13/20 09:00 12/14/20 09:08 Metoprolol Tartrate 50 Mg Tab PO 50 mg Q12HR TERRENCE Administration Oxybutynin Chloride 5 mg 12/13/20 09:00 12/14/20 09:05 Oxybutynin Chloride 5 Mg Tablet PO 5 mg DAILY TERRENCE Administration Saccharomyces Boulardii 250 mg 12/13/20 09:00 12/14/20 09:05 Saccharomyces Boulardii 250 Mg Capsule PO 250 mg BID TERRENCE Administration Tamsulosin HCl 0.4 mg 12/13/20 09:00 12/14/20 09:05 Tamsulosin Hcl 0.4 Mg Capsule PO 0.4 mg BID TERRENCE Administration Vancomycin HCl 125 mg 12/13/20 06:00 12/14/20 12:08 Vancomycin Oral 125 Mg/2.5 Ml Syrup PO 12/23/20 06:01 125 mg Q6HR TERRENCE Administration Radiology Results: ITS Impressions Abdomen/Pelvis CT 12/13/20 08:51 IMPRESSION: 1. Pro
[2020-12-14] MEDS: SODIUM CHLORIDE 0.9% IV 1,000 ML 50 ML IV CONT (14:52)
[2020-12-14 15:03] LABS: Basophils Percent Auto 0.2 % (0.2-1.2); Eosinophils Absolute Auto 0.1 K/mm3 (0-0.3); Eosinophils Percent Auto 2.9 % (0-4.4); Hematocrit 29.1 % (42.0-52.0); Hemoglobin 9.2 g/dL (14.0-18.0); Immature Granulocyte Absolute 0.03 K/mm3 (0.00-0.031); Immature Granulocyte Percent A 0.6 % (0-0.5); Immature Platelet Fraction Pct 4.3 % (0.9-11.2); Lymphocytes Absolute Auto 0.82 K/mm3 (0.9-3.2); Lymphocytes Percent Auto 16.8 % (18.3-44.2); Mean Corpuscular HGB Conc 31.6 g/dl (32-36); Mean Corpuscular Hemoglobin 28.5 pg (26-34); Mean Corpuscular Volume 90.1 fl (80-100); Mean Platelet Volume 11.6 fl (7.4-10.4); Monocytes Absolute Auto 0.3 K/mm3 (0.1-0.6); Monocytes Percent Auto 5.5 % (2.6-8.5); Neutrophils Absolute Auto 3.6 K/mm3 (1.3-6.7); Platelet Count Result 120 k/mm3 (150-375); Red Blood Count 3.23 M/mm3 (4.6-6.20); Red Cell Distribution Width 16.3 % (11.5-14.5); White Blood Count 4.9 K/mm3 (4.5-10.0)
[2020-12-14 15:13] LABS: Anion Gap 9 mmol/L (8-16); Blood Urea Nitrogen 43 mg/dL (9-20); Calcium 8.6 mg/dL (8.4-10.2); Carbon Dioxide 23 mmol/L (22-30); Chloride 101 mmol/L (98-107); Estimated CRCL calculation 34 ml/min; Estimated Glomerular Filt Rate 30; Glucose 110 mg/dL (75-110); Potassium 3.9 mmol/L (3.4-5.0); Sodium 133 mmol/L (137-145)
[2020-12-14 20:23] VITALS: BP 118/50; PULSE 59; RESP 18; TEMP 36.4; O2SAT 100
[2020-12-14 21:26] VITALS: PULSE 64
[2020-12-15] MEDS: VANCOMYCIN ORAL 125 MG/2.5 ML SYRUP PO ×5 (00:25→23:54)
[2020-12-15 05:05] VITALS: BP 125/48; PULSE 54; RESP 16; TEMP 36.9; O2SAT 99
[2020-12-15 05:45] LABS: Basophils Percent Auto 0.2 % (0.2-1.2); Eosinophils Absolute Auto 0.1 K/mm3 (0-0.3); Eosinophils Percent Auto 2.8 % (0-4.4); Hemoglobin 8.8 g/dL (14.0-18.0); Immature Granulocyte Absolute 0.05 K/mm3 (0.00-0.031); Immature Granulocyte Percent A 1.2 % (0-0.5); Immature Platelet Fraction Pct 4.3 % (0.9-11.2); Lymphocytes Absolute Auto 0.87 K/mm3 (0.9-3.2); Lymphocytes Percent Auto 20.3 % (18.3-44.2); Mean Corpuscular HGB Conc 31.4 g/dl (32-36); Mean Corpuscular Hemoglobin 28.4 pg (26-34); Mean Corpuscular Volume 90.3 fl (80-100); Monocytes Absolute Auto 0.4 K/mm3 (0.1-0.6); Monocytes Percent Auto 8.6 % (2.6-8.5); Neutrophils Absolute Auto 2.9 K/mm3 (1.3-6.7); Neutrophils Percent Auto 66.9 % (45.5-73.1); Platelet Count Result 111 k/mm3 (150-375); Red Cell Distribution Width 16.2 % (11.5-14.5); White Blood Count 4.3 K/mm3 (4.5-10.0)
[2020-12-15 05:55] LABS: Anion Gap 4 mmol/L (8-16); Blood Urea Nitrogen 39 mg/dL (9-20); Calcium 8.3 mg/dL (8.4-10.2); Carbon Dioxide 25 mmol/L (22-30); Chloride 104 mmol/L (98-107); Estimated CRCL calculation 34 ml/min; Estimated Glomerular Filt Rate 30; Glucose 97 mg/dL (75-110); Potassium 3.7 mmol/L (3.4-5.0); Sodium 133 mmol/L (137-145)
[2020-12-15 08:12] VITALS: BP 139/55; PULSE 56
[2020-12-15] MEDS: APIXABAN 5 MG TABLET PO ×2 (08:13→17:26)
[2020-12-15] MEDS: DOXAZOSIN MESYLATE 4 MG TABLET 8 MG PO ×2 (08:13→20:00)
[2020-12-15] MEDS: SACCHAROMYCES BOULARDII 250 MG CAPSULE PO ×2 (08:13→17:26)
[2020-12-15] MEDS: OXYBUTYNIN CHLORIDE 5 MG TABLET PO (08:14)
[2020-12-15] MEDS: METOPROLOL TARTRATE 50 MG TAB PO ×2 (08:14→20:00)
[2020-12-15] MEDS: lisinopriL 20 MG TABLET PO (08:14)
[2020-12-15] MEDS: ATORVASTATIN 10 MG TABLET PO (08:14)
[2020-12-15] MEDS: AMIODARONE HCL 200 MG TABLET PO ×2 (08:14→19:59)
[2020-12-15] MEDS: allopurinoL 100 MG TABLET PO (08:14)
[2020-12-15] MEDS: TAMSULOSIN HCL 0.4 MG CAPSULE PO ×2 (08:14→17:26)
--- NOTE | 2020-12-15 12:53 | PM.DS ---
DS: Summary Time Spent with Patient Time attestation: Total time spent providing and/or coordinating discharge services: DS: Data Data Completed and Pending Labs on day of discharge: Labs from last 24 hours 12/15/20 12/15/20 12/14/20 05:26 04:53 14:46 WBC 4.3 L RBC 3.10 L Hgb 8.8 L Hct 28.0 L MCV 90.3 MCH 28.4 MCHC 31.4 L RDW 16.2 H Plt Count 111 L MPV 12.0 H Immature Gran % (Auto) 1.2 H Neut % (Auto) 66.9 Lymph % (Auto) 20.3 [place] % (Auto) 8.6 H Eos % (Auto) 2.8 Baso % (Auto) 0.2 Lymph # (Auto) 0.87 L [place] # (Auto) 0.4 Eos # (Auto) 0.1 Baso # (Auto) 0.0 Abs Immat Gran (auto) 0.05 H Absolute Neuts (auto) 2.9 Absolute Nucleated RBC 0.0 Nucleated RBC % 0.0 % Immature Plt Fraction 4.3 Sodium 133 L 133 L Potassium 3.7 3.9 Chloride 104 101 Carbon Dioxide 25 23 Anion Gap 4 L 9 BUN 39 H 43 H Creatinine 2.20 H 2.20 H Estim Creat Clear Calc 34 34 Estimated GFR 30 L 30 L Glucose 97 110 Calcium 8.3 L 8.6 12/14/20 14:46 WBC 4.9 RBC 3.23 L Hgb 9.2 L Hct 29.1 L MCV 90.1 MCH 28.5 MCHC 31.6 L RDW 16.3 H Plt Count 120 L MPV 11.6 H Immature Gran % (Auto) 0.6 H Neut % (Auto) 74.0 H Lymph % (Auto) 16.8 L [place] % (Auto) 5.5 Eos % (Auto) 2.9 Baso % (Auto) 0.2 Lymph # (Auto) 0.82 L [place] # (Auto) 0.3 Eos # (Auto) 0.1 Baso # (Auto) 0.0 Abs Immat Gran (auto) 0.03 Absolute Neuts (auto) 3.6 Absolute Nucleated RBC 0.0 Nucleated RBC % 0.0 % Immature Plt Fraction 4.3 Sodium Potassium Chloride Carbon Dioxide Anion Gap BUN Creatinine Estim Creat Clear Calc Estimated GFR Glucose Calcium Discharge Plan Discharge Attending physician on discharge: Ewa Isaacs Discharging Clinician: Ewa Isaacs Patient Disposition: Home, Self-Care Activity: as tolerated Diet: heart healthy Discharge Instructions: Patient to follow up with his primary care provider as soon as possible, patient is instructed if any symptoms redevelop to go to nearest ER. Patient Instructions: Antibiotic Form, Apixaban (By mouth), Dehydration (DC), Acute Kidney Injury (GEN), Acute Diarrhea (GEN), Blood Thinners (DC) Stand Alone Forms: General Discharge Information Follow-up/Referrals: Leon Taylor MD [Primary Care Provider] - Discharge Medications: New amoxicillin-pot clavulanate [Augmentin] 500-125 mg tablet 1 tablet PO Q8H Qty: 21 RF: 0 Continued loperamide 2 mg Capsule 2 mg PO QID PRN (Reason: Diarrhea) Qty: 30 RF: 0 atorvastatin 10 mg tablet 10 mg PO DAILY Qty: 30 RF: 0 amiodarone [Pacerone] 200 mg Tablet 200 mg PO BID Qty: 60 RF: 0 lisinopril 20 mg tablet 20 mg PO DAILY Qty: 30 RF: 0 doxazosin 8 mg tablet 8 mg PO BID Qty: 30 RF: 0 tamsulosin 0.4 mg capsule 0.4 mg PO BID Qty: 30 RF: 0 metoprolol tartrate 50 mg tablet 50 mg PO BID Qty: 30 RF: 0 allopurinol 300 mg tablet 300 mg PO DAILY Qty: 30 RF: 0 oxybutynin chloride 5 mg tablet 5 mg PO DAILY Qty: 30 RF: 0 Eliquis 5 mg tablet 5 mg PO BID Qty: 30 RF: 0 furosemide 40 mg Tablet 40 mg PO BID RF: 0 Saccharomyces boulardii [Florastor] 250 mg capsule 250 mg PO BID RF: 0 Date of admission: 12/14/20 17:54 Primary Care Provider: Leon Taylor Admitting Provider: Angelika Hernandez Attending physician on admission: Angelika Hernandez Condition: Improved Quality VTE Prophylaxis VTE prophylaxis: pharmacologic ordered ( Lovenox 30 mg subq daily.)
--- NOTE | 2020-12-15 17:06 | PM.IMPN ---
Progress Note: A&P Assessment and Plan (1) Colitis: Code(s): K52.9 - Noninfective gastroenteritis and colitis, unspecified Status: Acute Assessment and Plan: 12/15/20 17:06 70-year-old male presented with complaint abdominal pain CT scan of abdomen showed colitis and patient was started on Zosyn and had been doing very well today he was tolerating his diet and has bowel movement had improved, he had no abdominal pain nausea or vomiting fever, however plan was to discharge the patient home today as he has white counts were trending down, however we were informed today the patient is positive C diff most likely present on arrival, will start the patient on oral vancomycin, will stop Zosyn and will continue to monitor and plan accordingly (2) Acute kidney injury superimposed on chronic kidney disease: Code(s): N17.9 - Acute kidney failure, unspecified; N18.9 - Chronic kidney disease, unspecified Status: Acute Assessment and Plan: Most likely secondary diarrhea and poor p.o. intake will gently hydrate the patient and monitor kidney function (3) Acute dehydration: Code(s): E86.0 - Dehydration Status: Acute Assessment and Plan: Most likely secondary to diarrhea and poor p.o. intake patient is being gently hydrated and will monitor. Additional Plan 12/14/20 WBC downtrending renal function improving pt denies diarrhea Stool cultures and C diff pending requesting diet to be changed to regular Discontinue IV fluids Continue IV antibiotic therapy Anticipate discharge in 24-48 Subjective Date/time seen: 12/15/20 17:06 70-year-old male presented with complaint abdominal pain CT scan of abdomen showed colitis and patient was started on Zosyn and had been doing very well today he was tolerating his diet and has bowel movement had improved, he had no abdominal pain nausea or vomiting fever, however plan was to discharge the patient home today as he has white counts were trending down, however we were informed today the patient is positive C diff most likely present on arrival, will start the patient on oral vancomycin, will stop Zosyn and will continue to monitor and plan accordingly Review of Systems Review of Systems: All systems reviewed & are unremarkable except as noted in HPI and below Exam Narrative: Exam Narrative: Moderately obese Patient is comfortable, NAD HEENT: eyes are clear and none icteric LUNGS:CTA HEART: RR S1S2 ABD: BS+, Soft and nontender Lower extremities: no edema SKIN: nonjaundiced Neuro: grossly intact. Objective Data Vital Signs Vital Signs: Vital Signs - 24 hr 12/14/20 20:23 12/14/20 21:26 12/15/20 05:05 Temperature 97.6 F 98.4 F Pulse Rate 59 L 64 54 L Respiratory Rate 18 16 Blood Pressure 118/50 L 125/48 L Pulse Oximetry 100 99 12/15/20 08:12 Temperature Pulse Rate 56 L Respiratory Rate Blood Pressure 139/55 L Pulse Oximetry Intake/Output Intake/Output: Intake & Output 12/12/20 12/13/20 12/14/20 12/15/20 23:59 23:59 23:59 23:59 Intake Total 1000 2630 1690 980 Output Total 1000 1700 1100 Balance 1000 1630 -10 -120 Meds/Results Medications: Active Medications Generic Name Dose Route Start Last Admin Trade Name Freq PRN Reason Stop Dose Admin Allopurinol 100 mg 12/13/20 09:00 12/15/20 08:14 Allopurinol 100 Mg Tablet PO 100 mg DAILY TERRENCE Administration Amiodarone HCl 200 mg 12/13/20 09:00 12/15/20 08:14 Amiodarone Hcl 200 Mg Tablet PO 200 mg Q12HR TERRENCE Administration Apixaban 5 mg 12/13/20 09:00 12/15/20 08:13 Apixaban 5 Mg Tablet PO 5 mg BID TERRENCE Administration Atorvastatin Calcium 10 mg 12/13/20 09:00 12/15/20 08:14 Atorvastatin 10 Mg Tablet PO 10 mg DAILY TERRENCE Administration Doxazosin Mesylate 8 mg 12/13/20 09:00 12/15/20 08:13 Doxazosin Mesylate 4 Mg Tablet PO 8 mg Q12HR TERRENCE Administration Piperacillin Sod/Tazobactam Sod 2.25 gm in 50 mls @ 100 ml
[2020-12-15] MEDS: SODIUM CHLORIDE 0.9% IV 1,000 ML 75 ML IV CONT (18:31)
[2020-12-15 19:59] VITALS: PULSE 60
[2020-12-15 20:00] VITALS: PULSE 60
[2020-12-15 20:26] VITALS: BP 113/54; PULSE 93; RESP 18; TEMP 36.6; O2SAT 100
[2020-12-16] VITALS (7 sets, daily range): BP systolic 119–137; BP diastolic 48–64; PULSE 51–58; RESP 16–18; TEMP 36.2–36.7; O2SAT 100
[2020-12-16] MEDS: VANCOMYCIN ORAL 125 MG/2.5 ML SYRUP PO ×4 (05:20→23:44)
[2020-12-16] MEDS: allopurinoL 100 MG TABLET PO (08:02)
[2020-12-16] MEDS: AMIODARONE HCL 200 MG TABLET PO ×2 (08:03→19:59)
[2020-12-16] MEDS: DOXAZOSIN MESYLATE 4 MG TABLET 8 MG PO ×2 (08:04→20:00)
[2020-12-16] MEDS: ATORVASTATIN 10 MG TABLET PO (08:04)
[2020-12-16] MEDS: APIXABAN 5 MG TABLET PO ×2 (08:04→17:08)
[2020-12-16] MEDS: lisinopriL 20 MG TABLET PO (08:05)
[2020-12-16] MEDS: OXYBUTYNIN CHLORIDE 5 MG TABLET PO (08:05)
[2020-12-16] MEDS: SACCHAROMYCES BOULARDII 250 MG CAPSULE PO ×2 (08:05→17:08)
[2020-12-16] MEDS: METOPROLOL TARTRATE 50 MG TAB PO ×2 (08:05→20:01)
[2020-12-16] MEDS: SODIUM CHLORIDE 0.9% IV 1,000 ML 75 ML IV CONT (08:05)
[2020-12-16] MEDS: TAMSULOSIN HCL 0.4 MG CAPSULE PO ×2 (08:05→17:08)
--- NOTE | 2020-12-16 10:53 | PC.NURSE ---
On 12/16/20, the student, [ Bel Clarke], provided care and completed [facility] documentation on this patient. I have reviewed the student's documentation and agree with the findings.
--- NOTE | 2020-12-16 13:37 | WPDCDIQUERY2 ---
CDI Query Clarification Request -12/13 urine culture growing >100,000 E coli -12/13 cross cover note- Pt has UTI and Zosyn will cover for UTI documented -No further mention of UTI Please clarify if UTI has been ruled in or ruled out. <Erin Parrish RN - Last Filed: 12/16/20 13:39> Clarified Diagnosis (1) UTI (urinary tract infection): Code(s): N39.0 - Urinary tract infection, site not specified <Erin Parrish RN - Last Filed: 12/16/20 13:39> Status: Acute <Erin Parrish RN - Last Filed: 12/16/20 13:39> Assessment and Plan: patient with UTI with E. coli, sensitive to rocephin, <Ewa Isaacs MD - Last Filed: 12/16/20 15:02>
--- NOTE | 2020-12-16 14:54 | PM.IMPN ---
Progress Note: A&P Assessment and Plan (1) Colitis: Code(s): K52.9 - Noninfective gastroenteritis and colitis, unspecified Status: Acute Assessment and Plan: 12/16/20 14:54 70-year-old male presented with complaint abdominal pain CT scan of abdomen showed colitis and patient was started on Zosyn and had been doing very well today he was tolerating his diet and has bowel movement had improved, he had no abdominal pain nausea or vomiting fever, however plan was to discharge the patient home today as he has white counts were trending down, however we were informed today the patient is positive C diff most likely present on arrival, will start the patient on oral vancomycin, will stop Zosyn and will continue to monitor and plan accordingly. Patient with C.diff so far had 1 stool precious formed, denies any abdominal pain, nausea or vomiting and able to tolerate his diet. patient with UTI with E. coli, sensitive to rocephin, will continue, If patient remains clinically stable does not have any loose BM, may discharge him tomorrow. (2) Acute kidney injury superimposed on chronic kidney disease: Code(s): N17.9 - Acute kidney failure, unspecified; N18.9 - Chronic kidney disease, unspecified Status: Acute Assessment and Plan: Most likely secondary diarrhea and poor p.o. intake will gently hydrate the patient and monitor kidney function (3) Acute dehydration: Code(s): E86.0 - Dehydration Status: Acute Assessment and Plan: Most likely secondary to diarrhea and poor p.o. intake patient is being gently hydrated and will monitor. (4) UTI (urinary tract infection): Code(s): N39.0 - Urinary tract infection, site not specified Status: Acute Assessment and Plan: patient with UTI with E. coli, sensitive to rocephin, Additional Plan 12/14/20 WBC downtrending renal function improving pt denies diarrhea Stool cultures and C diff pending requesting diet to be changed to regular Discontinue IV fluids Continue IV antibiotic therapy Anticipate discharge in 24-48 Subjective Date/time seen: 12/16/20 14:54 70-year-old male presented with complaint abdominal pain CT scan of abdomen showed colitis and patient was started on Zosyn and had been doing very well today he was tolerating his diet and has bowel movement had improved, he had no abdominal pain nausea or vomiting fever, however plan was to discharge the patient home today as he has white counts were trending down, however we were informed today the patient is positive C diff most likely present on arrival, will start the patient on oral vancomycin, will stop Zosyn and will continue to monitor and plan accordingly. Patient with C.diff so far had 1 stool precious formed, denies any abdominal pain, nausea or vomiting and able to tolerate his diet. patient with UTI with E. coli, sensitive to rocephin, will continue, If patient remains clinically stable does not have any loose BM, may discharge him tomorrow. Review of Systems Review of Systems: All systems reviewed & are unremarkable except as noted in HPI and below Exam Narrative: Exam Narrative: Moderately obese Patient is comfortable, NAD HEENT: eyes are clear and none icteric LUNGS:CTA HEART: RR S1S2 ABD: BS+, Soft and nontender Lower extremities: no edema SKIN: nonjaundiced Neuro: grossly intact. Objective Data Vital Signs Vital Signs: Vital Signs - 24 hr 12/15/20 19:59 12/15/20 20:00 12/15/20 20:26 Temperature 97.8 F Pulse Rate 60 60 93 Respiratory Rate 18 Blood Pressure 113/54 L Pulse Oximetry 100 12/16/20 06:00 12/16/20 08:03 12/16/20 08:05 Temperature 98.0 F Pulse Rate 54 L 58 L 58 L Respiratory Rate 16 Blood Pressure 137/51 L Pulse Oximetry 100 Intake/Output Intake/Output: Intake & Output 12/13/20 12/14/20 12/15/20 12/16/20 23:59 23:59 23:59 23:59 Intake Total 2630 1690 1520 1440 Output Total 1000 1700 1200 300 [place]
[2020-12-16] MEDS: SODIUM CHLORIDE 0.9% IV 1,000 ML 125 ML IV CONT (18:42)
[2020-12-16 21:37] LABS: Glucose Point of Care 149 (65-105)
[2020-12-17] MEDS: SODIUM CHLORIDE 0.9% IV 1,000 ML 125 ML IV CONT ×3 (02:48→20:39)
[2020-12-17] MEDS: VANCOMYCIN ORAL 125 MG/2.5 ML SYRUP PO ×3 (05:18→17:13)
[2020-12-17 06:00] VITALS: BP 143/49; PULSE 52; RESP 16; TEMP 37.1; O2SAT 98
[2020-12-17 08:08] LABS: Hematocrit 28.1 % (42.0-52.0); Hemoglobin 8.7 g/dL (14.0-18.0); Mean Corpuscular Hemoglobin 28.3 pg (26-34); Mean Corpuscular Volume 91.5 fl (80-100); Mean Platelet Volume 11.5 fl (7.4-10.4); Platelet Count Result 109 k/mm3 (150-375); Red Blood Count 3.07 M/mm3 (4.6-6.20); Red Cell Distribution Width 15.9 % (11.5-14.5); White Blood Count 3.6 K/mm3 (4.5-10.0)
[2020-12-17 08:22] LABS: Anion Gap 4 mmol/L (8-16); Blood Urea Nitrogen 24 mg/dL (9-20); Calcium 8.3 mg/dL (8.4-10.2); Carbon Dioxide 22 mmol/L (22-30); Chloride 110 mmol/L (98-107); Estimated CRCL calculation 44 ml/min; Estimated Glomerular Filt Rate 40; Glucose 95 mg/dL (75-110); Magnesium 1.8 mg/dL (1.6-2.3); Potassium 3.7 mmol/L (3.4-5.0); Sodium 136 mmol/L (137-145)
[2020-12-17 09:33] VITALS: PULSE 58
[2020-12-17] MEDS: ATORVASTATIN 10 MG TABLET PO (09:33)
[2020-12-17] MEDS: OXYBUTYNIN CHLORIDE 5 MG TABLET PO (09:33)
[2020-12-17] MEDS: APIXABAN 5 MG TABLET PO ×2 (09:33→17:14)
[2020-12-17] MEDS: allopurinoL 100 MG TABLET PO (09:33)
[2020-12-17] MEDS: METOPROLOL TARTRATE 50 MG TAB PO ×2 (09:33→20:52)
[2020-12-17] MEDS: DOXAZOSIN MESYLATE 4 MG TABLET 8 MG PO ×2 (09:33→20:52)
[2020-12-17] MEDS: SACCHAROMYCES BOULARDII 250 MG CAPSULE PO ×2 (09:33→17:14)
[2020-12-17] MEDS: TAMSULOSIN HCL 0.4 MG CAPSULE PO ×2 (09:34→17:14)
[2020-12-17 09:35] VITALS: PULSE 59; RESP 16; O2SAT 98
[2020-12-17] MEDS: AMIODARONE HCL 200 MG TABLET PO ×2 (09:35→20:52)
[2020-12-17] MEDS: lisinopriL 20 MG TABLET PO (09:35)
--- NOTE | 2020-12-17 13:16 | PM.IMPN ---
Progress Note: A&P Assessment and Plan (1) Acute kidney injury superimposed on chronic kidney disease: Code(s): N17.9 - Acute kidney failure, unspecified; N18.9 - Chronic kidney disease, unspecified Status: Acute Assessment and Plan: Patient with acute on chronic kidney disease most likely secondary dehydration due to diarrhea and poor p.o. intake patient is being gently hydrated and will monitor kidney function (2) Acute dehydration: Code(s): E86.0 - Dehydration Status: Acute Assessment and Plan: Will continue to monitor and hydrate the patient (3) UTI (urinary tract infection): Code(s): N39.0 - Urinary tract infection, site not specified Status: Acute Assessment and Plan: Patient with a UTI with E coli sensitive to Rocephin will continue (4) Colitis: Code(s): K52.9 - Noninfective gastroenteritis and colitis, unspecified Status: Acute Assessment and Plan: 12/17/20 13:16 70-year-old male presented with complaint abdominal pain CT scan of abdomen showed colitis and patient was started on Zosyn and had been doing very well today he was tolerating his diet and has bowel movement had improved, he had no abdominal pain nausea or vomiting fever, however plan was to discharge the patient home today as he has white counts were trending down, however we were informed today the patient is positive C diff most likely present on arrival, will start the patient on oral vancomycin, will stop Zosyn and will continue to monitor and plan accordingly. Patient with C.diff so far had 1 stool precious formed, denies any abdominal pain, nausea or vomiting and able to tolerate his diet. patient with UTI with E. coli, sensitive to rocephin, will continue, If patient remains clinically stable does not have any loose BM, may discharge him tomorrow. 12/17 today patient is having more loose bowel BM he denies abdominal pain nausea or vomiting is able to tolerate his diet, denies any fever, will continue to monitor, once patient has formed stool will do the discharge planning Subjective Date/time seen: 12/17/20 13:16 70-year-old male presented with complaint abdominal pain CT scan of abdomen showed colitis and patient was started on Zosyn and had been doing very well today he was tolerating his diet and has bowel movement had improved, he had no abdominal pain nausea or vomiting fever, however plan was to discharge the patient home today as he has white counts were trending down, however we were informed today the patient is positive C diff most likely present on arrival, will start the patient on oral vancomycin, will stop Zosyn and will continue to monitor and plan accordingly. Patient with C.diff so far had 1 stool precious formed, denies any abdominal pain, nausea or vomiting and able to tolerate his diet. patient with UTI with E. coli, sensitive to rocephin, will continue, If patient remains clinically stable does not have any loose BM, may discharge him tomorrow. 12/17 today patient is having more loose bowel BM he denies abdominal pain nausea or vomiting is able to tolerate his diet, denies any fever, will continue to monitor, once patient has formed stool will do the discharge planning Review of Systems Review of Systems: All systems reviewed & are unremarkable except as noted in HPI and below Exam Narrative: Exam Narrative: Moderately obese Patient is comfortable, NAD HEENT: eyes are clear and none icteric LUNGS:CTA HEART: RR S1S2 ABD: BS+, Soft and nontender Lower extremities: no edema SKIN: nonjaundiced Neuro: grossly intact. Objective Data Vital Signs Vital Signs: Vital Signs - 24 hr 12/16/20 14:00 12/16/20 19:59 12/16/20 20:01 Temperature 97.2 F L Pulse Rate 54 L 55 L 55 L Respiratory Rate 18 Blood Pressure 123/64 Pulse Oximetry 100 12/16/20 22:00 12/17/20 06:00 12/17/20 09:33 Temperature 97.6 F 98.7 F Pulse Rate 51 L 52 L 58 L Respiratory Rate 16 16
[2020-12-17 14:00] VITALS: BP 125/52; PULSE 55; RESP 14; TEMP 35.9; O2SAT 98
[2020-12-17 20:52] VITALS: PULSE 58
[2020-12-17 22:00] VITALS: BP 145/49; PULSE 54; RESP 18; TEMP 36.8; O2SAT 98
[2020-12-18] VITALS (8 sets, daily range): BP systolic 141–158; BP diastolic 49–52; PULSE 55–70; RESP 18; TEMP 35.9–36.8; O2SAT 97–99
[2020-12-18] MEDS: VANCOMYCIN ORAL 125 MG/2.5 ML SYRUP PO ×4 (00:27→17:41)
[2020-12-18] MEDS: SODIUM CHLORIDE 0.9% IV 1,000 ML 125 ML IV CONT ×2 (05:08→13:33)
[2020-12-18] MEDS: METOPROLOL TARTRATE 50 MG TAB PO ×2 (08:55→22:10)
[2020-12-18] MEDS: allopurinoL 100 MG TABLET PO (08:55)
[2020-12-18] MEDS: OXYBUTYNIN CHLORIDE 5 MG TABLET PO (08:55)
[2020-12-18] MEDS: APIXABAN 5 MG TABLET PO ×2 (08:55→16:46)
[2020-12-18] MEDS: SACCHAROMYCES BOULARDII 250 MG CAPSULE PO ×2 (08:55→16:45)
[2020-12-18] MEDS: TAMSULOSIN HCL 0.4 MG CAPSULE PO ×2 (08:57→16:45)
[2020-12-18] MEDS: ATORVASTATIN 10 MG TABLET PO (08:57)
[2020-12-18] MEDS: DOXAZOSIN MESYLATE 4 MG TABLET 8 MG PO ×2 (08:57→22:12)
[2020-12-18] MEDS: AMIODARONE HCL 200 MG TABLET PO ×2 (08:57→22:11)
[2020-12-18] MEDS: lisinopriL 20 MG TABLET PO (08:57)
--- NOTE | 2020-12-18 14:27 | PM.IMPN ---
Progress Note: A&P Assessment and Plan (1) Acute kidney injury superimposed on chronic kidney disease: Code(s): N17.9 - Acute kidney failure, unspecified; N18.9 - Chronic kidney disease, unspecified Status: Acute Assessment and Plan: Patient with acute on chronic kidney disease most likely secondary dehydration due to diarrhea and poor p.o. intake patient is being gently hydrated and will monitor kidney function (2) Acute dehydration: Code(s): E86.0 - Dehydration Status: Acute Assessment and Plan: Will continue to monitor and hydrate the patient (3) UTI (urinary tract infection): Code(s): N39.0 - Urinary tract infection, site not specified Status: Acute Assessment and Plan: Patient with a UTI with E coli sensitive to Rocephin will continue (4) Colitis: Code(s): K52.9 - Noninfective gastroenteritis and colitis, unspecified Status: Acute Assessment and Plan: 12/18/20 14:27 70-year-old male presented with complaint abdominal pain CT scan of abdomen showed colitis and patient was started on Zosyn and had been doing very well today he was tolerating his diet and has bowel movement had improved, he had no abdominal pain nausea or vomiting fever, however plan was to discharge the patient home today as he has white counts were trending down, however we were informed today the patient is positive C diff most likely present on arrival, will start the patient on oral vancomycin, will stop Zosyn and will continue to monitor and plan accordingly. Patient with C.diff so far had 1 stool precious formed, denies any abdominal pain, nausea or vomiting and able to tolerate his diet. patient with UTI with E. coli, sensitive to rocephin, will continue, If patient remains clinically stable does not have any loose BM, may discharge him tomorrow. 12/17 today patient is having more loose bowel BM he denies abdominal pain nausea or vomiting is able to tolerate his diet, denies any fever, will continue to monitor, once patient has formed stool will do the discharge planning 12/18 so far today patient only had 1 BM and was slightly formed, he denies any abdominal pain nausea or vomiting fever or chills, is able to tolerate his diet, if remains clinically stable and stools are more formed tomorrow will discharge the patient Additional Plan 12/14/20 WBC downtrending renal function improving pt denies diarrhea Stool cultures and C diff pending requesting diet to be changed to regular Discontinue IV fluids Continue IV antibiotic therapy Anticipate discharge in 24-48 Subjective Date/time seen: 12/18/20 14:27 70-year-old male presented with complaint abdominal pain CT scan of abdomen showed colitis and patient was started on Zosyn and had been doing very well today he was tolerating his diet and has bowel movement had improved, he had no abdominal pain nausea or vomiting fever, however plan was to discharge the patient home today as he has white counts were trending down, however we were informed today the patient is positive C diff most likely present on arrival, will start the patient on oral vancomycin, will stop Zosyn and will continue to monitor and plan accordingly. Patient with C.diff so far had 1 stool precious formed, denies any abdominal pain, nausea or vomiting and able to tolerate his diet. patient with UTI with E. coli, sensitive to rocephin, will continue, If patient remains clinically stable does not have any loose BM, may discharge him tomorrow. 12/17 today patient is having more loose bowel BM he denies abdominal pain nausea or vomiting is able to tolerate his diet, denies any fever, will continue to monitor, once patient has formed stool will do the discharge planning 12/18 so far today patient only had 1 BM and was slightly formed, he denies any abdominal pain nausea or vomiting fever or chills, is able to tolerate his diet, if remains clinically stable and stools are more formed tomorrow
[2020-12-19] MEDS: VANCOMYCIN ORAL 125 MG/2.5 ML SYRUP PO ×3 (00:45→13:06)
[2020-12-19 05:27] VITALS: BP 157/54; PULSE 60; RESP 18; TEMP 36.9; O2SAT 99
[2020-12-19 05:38] LABS: Hematocrit 27.2 % (42.0-52.0); Hemoglobin 8.5 g/dL (14.0-18.0); Mean Corpuscular HGB Conc 31.3 g/dl (32-36); Mean Corpuscular Hemoglobin 27.8 pg (26-34); Mean Corpuscular Volume 88.9 fl (80-100); Mean Platelet Volume 11.9 fl (7.4-10.4); Platelet Count Result 102 k/mm3 (150-375); Red Blood Count 3.06 M/mm3 (4.6-6.20); Red Cell Distribution Width 15.9 % (11.5-14.5); White Blood Count 3.6 K/mm3 (4.5-10.0)
[2020-12-19 05:45] LABS: Anion Gap 6 mmol/L (8-16); Blood Urea Nitrogen 16 mg/dL (9-20); Calcium 8.3 mg/dL (8.4-10.2); Carbon Dioxide 20 mmol/L (22-30); Chloride 108 mmol/L (98-107); Estimated CRCL calculation 57 ml/min; Estimated Glomerular Filt Rate 54; Glucose 93 mg/dL (75-110); Magnesium 1.6 mg/dL (1.6-2.3); Potassium 3.8 mmol/L (3.4-5.0); Sodium 134 mmol/L (137-145)
[2020-12-19] MEDS: OXYBUTYNIN CHLORIDE 5 MG TABLET PO (08:15)
[2020-12-19 08:16] VITALS: PULSE 61
[2020-12-19] MEDS: AMIODARONE HCL 200 MG TABLET PO (08:16)
[2020-12-19 08:17] VITALS: PULSE 61; RESP 18; O2SAT 98
[2020-12-19] MEDS: APIXABAN 5 MG TABLET PO (08:17)
[2020-12-19] MEDS: SACCHAROMYCES BOULARDII 250 MG CAPSULE PO (08:17)
[2020-12-19] MEDS: DOXAZOSIN MESYLATE 4 MG TABLET 8 MG PO (08:17)
[2020-12-19] MEDS: lisinopriL 20 MG TABLET PO (08:17)
[2020-12-19] MEDS: METOPROLOL TARTRATE 50 MG TAB PO (08:17)
[2020-12-19] MEDS: TAMSULOSIN HCL 0.4 MG CAPSULE PO (08:17)
[2020-12-19] MEDS: allopurinoL 100 MG TABLET PO (08:17)
[2020-12-19] MEDS: ATORVASTATIN 10 MG TABLET PO (08:17)
--- NOTE | 2020-12-19 11:15 | PM.DS ---
DS: Admitting Diagnosis Admitting Diagnosis Admitting Diagnosis: Chief Complaint: 2 days of diarrhea DS: Discharge Diagnosis Discharge Diagnosis (1) Acute kidney injury superimposed on chronic kidney disease: Code(s): N17.9 - Acute kidney failure, unspecified; N18.9 - Chronic kidney disease, unspecified Status: Acute Assessment and Plan: Patient with acute on chronic kidney disease most likely secondary dehydration due to diarrhea and poor p.o. intake patient is being gently hydrated and will monitor kidney function (2) Acute dehydration: Code(s): E86.0 - Dehydration Status: Acute Assessment and Plan: Will continue to monitor and hydrate the patient (3) UTI (urinary tract infection): Code(s): N39.0 - Urinary tract infection, site not specified Status: Acute Assessment and Plan: Patient with a UTI with E coli sensitive to Rocephin will continue (4) Colitis: Code(s): K52.9 - Noninfective gastroenteritis and colitis, unspecified Status: Acute Assessment and Plan: 12/18/20 14:27 70-year-old male presented with complaint abdominal pain CT scan of abdomen showed colitis and patient was started on Zosyn and had been doing very well today he was tolerating his diet and has bowel movement had improved, he had no abdominal pain nausea or vomiting fever, however plan was to discharge the patient home today as he has white counts were trending down, however we were informed today the patient is positive C diff most likely present on arrival, will start the patient on oral vancomycin, will stop Zosyn and will continue to monitor and plan accordingly. Patient with C.diff so far had 1 stool precious formed, denies any abdominal pain, nausea or vomiting and able to tolerate his diet. patient with UTI with E. coli, sensitive to rocephin, will continue, If patient remains clinically stable does not have any loose BM, may discharge him tomorrow. 12/17 today patient is having more loose bowel BM he denies abdominal pain nausea or vomiting is able to tolerate his diet, denies any fever, will continue to monitor, once patient has formed stool will do the discharge planning 12/18 so far today patient only had 1 BM and was slightly formed, he denies any abdominal pain nausea or vomiting fever or chills, is able to tolerate his diet, if remains clinically stable and stools are more formed tomorrow will discharge the patient DS: Summary Hospital Course Reason for hospitalization: Chief Complaint: 2 days of diarrhea Narrative: 70-year-old male with a past medical history of atrial fibrillation, hyperlipidemia, hypertension, BPH and chronic kidney disease who presented to the ER with 2 days of diarrhea. The patient reported he received his 2nd COVID vaccine 5 days ago (on Tuesday). The next day he developed watery diarrhea with multiple loose stools a day. He reports feeling warm on the but his temperature was only 99?. He has been afebrile since presentation to the ER. He reports 1 episode of emesis on the . He has had some minimal nausea. He denies any abdominal pain. He reports that he feels slightly hungry. He denies any dysuria or hematuria. He does have a history of urinary frequency and urgency. He reports that his Lasix dose was increased from 20 mg p.o. t.i.d. to 40 mg b.i.d.. He reports that he has had less swelling of his legs over the last couple of days than what is his baseline. He denies any recent travel. He has not had any ill contacts. He drinks city water. He has not been on any antibiotic therapy since September. Hospital Course: 70-year-old male presented with complaint abdominal pain CT scan of abdomen showed colitis and patient was started on Zosyn and had been doing very well today he was tolerating his diet and has bowel movement had improved, he had no abdominal pain nausea or vomiting fever, however plan was to discharge the patient home today as he has white count
== END 2020-12-19 13:15 | disposition home or self-care (01) | DRG 372 ==
LOC: ANHED 23:00 → ANH2MED 12-13 00:05
PROVIDERS: Emergency Medicine; Hospitalist; Admitting Provider Internal Medicine; Emergency Provider Emergency Medicine; PCP Family Medicine Adolescent Medicine; Visit Provider Family Medicine
DX: A04.72 Enterocolitis due to Clostridium difficile, not specified as recurrent (principal); I13.0 Hypertensive heart and chronic kidney disease with heart failure and stage 1 through stage 4 chronic kidney disease, or unspecified chronic kidney disease; N17.9 Acute kidney failure, unspecified; N39.0 Urinary tract infection, site not specified; B96.20 Unspecified Escherichia coli [E. coli] as the cause of diseases classified elsewhere; N18.30 Chronic kidney disease, stage 3 unspecified; I50.9 Heart failure, unspecified; E86.0 Dehydration; I48.91 Unspecified atrial fibrillation; N40.0 Benign prostatic hyperplasia without lower urinary tract symptoms; E78.5 Hyperlipidemia, unspecified; H91.90 Unspecified hearing loss, unspecified ear; Z79.01 Long term (current) use of anticoagulants; Z79.899 Other long term (current) drug therapy
CPT/HCPCS: 36415; 74176; 80048; 80053; 81001; 82948; 83690; 83735; 85025; 85027; 85055; 87015; 87045; 87046; 87077; 87086; 87088; 87186; 87269; 87272; 87324; 87427; 87493; 96361; 96365; 96366; 96374; 99285; A9270; G0378; J0696; J2543; J7030; J7120

== ENCOUNTER 2021-06-27 18:14 | Inpatient (IN) | payer MEDICARE, SELFPAY ==
[2021-06-27] VITALS (9 sets, daily range): BP systolic 151–188; BP diastolic 53–71; PULSE 66–85; RESP 18–33; TEMP 36.6–37.6; O2SAT 96–100; BMI 36.7
--- NOTE | ~2021-06-27 | XR_ITS ---
XR chest 2V DATE: 06/27/2021 18:44 INDICATION: Shortness of breath, lower extremity swelling, water retention for one day TECHNIQUE: AP and lateral views COMPARISON: 09/12/2020 portable AP chest FINDINGS: Status post sternotomy. There is globular cardiac enlargement consistent with cardiomyopath y and/or pericardial effusion. There is pulmonary vascular redistribution consistent with pulmonary v enous hypertension. There are small pleural effusions. There is infiltrate in the lower lung zones, primarily on the left. No pneumothorax. IMPRESSION: Left lower lobe infiltrate or pneumonia Lesser mild right basilar infiltrate or atelectasis Globular enlarged cardiac silhouette consistent with cardiomyopathy and/or pericardial effusion Aortic atherosclerosis Reviewed, dictated and finalized at location A. IMPRESSION: Left lower lobe infiltrate or pneumonia Lesser mild right basilar infiltrate or atelectasis Globular enlarged cardiac silhouette consistent with cardiomyopathy and/or omar cardial effusion Aortic atherosclerosis
--- NOTE | 2021-06-27 18:15 | ECG_ITS ---
Measurements Intervals [place] Rate: 76 P: MI: 0 QRS: 75 QRSD: 134 T: 89 QT: 419 QTc: 473 Interpretive Statements SINUS OR ECTOPIC ATRIAL RHYTHM LEFT BUNDLE BRANCH BLOCK BASELINE ARTIFACT- I, II, III, AVR, AVL, V3-V6 ABNORMAL ECG Electronically Signed On 06-27-2021 23:44:21 CDT by Gentry Durand D.O.
[2021-06-27 18:57] LABS: Basophils Percent Auto 0.1 % (0.2-1.2); Eosinophils Percent Auto 0.1 % (0-4.4); Hematocrit 31.1 % (42.0-52.0); Hemoglobin 9.6 g/dL (14.0-18.0); Immature Granulocyte Absolute 0.07 K/mm3 (0.00-0.031); Immature Granulocyte Percent A 0.9 % (0-0.5); Lymphocytes Absolute Auto 0.41 K/mm3 (0.9-3.2); Lymphocytes Percent Auto 5.6 % (18.3-44.2); Mean Corpuscular HGB Conc 30.9 g/dl (32-36); Mean Corpuscular Volume 87.6 fl (80-100); Monocytes Absolute Auto 0.4 K/mm3 (0.1-0.6); Monocytes Percent Auto 5.3 % (2.6-8.5); Neutrophils Absolute Auto 6.5 K/mm3 (1.3-6.7); Platelet Count Result 100 k/mm3 (150-375); Red Blood Count 3.55 M/mm3 (4.6-6.20); Red Cell Distribution Width 17.2 % (11.5-14.5); White Blood Count 7.4 K/mm3 (4.5-10.0)
[2021-06-27 19:10] LABS: INR 1.8; Prothrombin Time 20.8 Seconds (11.1-14.7)
[2021-06-27 19:11] LABS: Partial Thromboplastin Time 44.3 SECONDS (22.3-36.8)
[2021-06-27 19:16] LABS: Ovalocytes 1+ (NORMAL); Platelet Estimate Decreased (Adequate)
[2021-06-27 19:26] LABS: Anion Gap 13 mmol/L (8-16); Blood Urea Nitrogen 20 mg/dL (9-20); Carbon Dioxide 17 mmol/L (22-30); Chloride 107 mmol/L (98-107); Estimated CRCL calculation 49 ml/min; Estimated Glomerular Filt Rate 46; Glucose 120 mg/dL (65-110); Potassium 4.5 mmol/L (3.4-5.0); Sodium 137 mmol/L (137-145)
[2021-06-27 19:38] LABS: NT Pro B Type Natriuretic Pept 10100 pg/mL (5-100); Troponin I < 0.012 ng/mL (0.000-0.034)
--- NOTE | 2021-06-27 19:39 | PC.NURSE ---
pt reports ran out of water pill 'a couple days ago' and now c/o increased leg swelling and shortness of breath. +2 pitting edema to ble.
--- NOTE | 2021-06-27 19:59 | ED.GENADULT ---
HPI - General Adult General Chief complaint: Shortness of Breath/Dyspnea Stated complaint: im retaining water Time Seen by Provider: 06/27/21 19:41 History of Present Illness HPI narrative: Patient 71-year-old gentleman who presents the emergency department with chief complaint of shortness of breath. Patient reports that he has been on Lasix reports that he is actually been taking 3 20 mg Lasix 3 times a day and about 3 to 4 days ago he ran out of his Lasix. Patient states that he called his [place] [employer] supervisor office and they stated that they would want to see him in the office before they refilled his medication. Patient reports that his symptoms are worse with exertion reports whenever he lays flat he gets more short of breath. The patient states that he is had significant peripheral edema that is developed. Related Data Home Medications Medication Instructions Recorded Confirmed Saccharomyces boulardii [Florastor] 250 mg PO BID 12/13/20 12/13/20 furosemide 40 mg PO BID 12/13/20 12/13/20 Allergies Allergy/AdvReac Type Severity Reaction Status Date / Time No Known Allergies Allergy Verified 06/27/21 20:17 Review of Systems Review of Systems: A 10 system review of systems was completed on the patient and is negative except for what is stated in the HPI. Nursing and ancillary documentation was reviewed. [facility] Past Medical History Medical History Atrial fibrillation Treated with ablation currently on anticoagulation. BPH (benign prostatic hyperplasia) CHF (congestive heart failure) Echo 09/07/2020: Left ventricular dimension mildly enlarged, EF 60-65%, mildly increased left ventricular wall thickness, abnormal ventricular septal wall motion due to bundle branch block, diastolic function indeterminate, severe left atrial enlargement, moderate right atrial enlargement, mild mitral valve regurgitation, [id number] tricuspid valve regurgitation, moderate pulmonary hypertension with RVSP of 55 Chronic anemia Chronic kidney disease, stage III (moderate) With baseline creatinine between 1.4-1.7 Hearing loss of aging Extremely hard of hearing Hyperlipidemia Hypertension Surgical History Surgical History H/O heart bypass surgery (~10/2014) 3 way bypass History of cardiac radiofrequency ablation (~09/15/20) History of right inguinal hernia repair (~2009) With mesh with subsequent recurrence of hernia History of total left knee replacement Status post right knee replacement (~2011) Family History Family History Sibling Atrial fibrillation Father Heart disease Mother Congestive heart failure Social History Social History Social History: He has never been and does not have any children. 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 He is a lifelong nonsmoker and only rarely drinks alcohol in small amounts. He does not use illicit substances. Primary care physician: Dr. Leon Cordero Code status: Full code (the patient does not have written advanced directives) Surrogate decision maker: Mariusz (brother) Smoking status: Never smoker Alcohol intake: never Substance use: never Substance use type: does not use Gender identity (if verbalized by the patient): Male Spiritual care concerns: No Exam Narrative: GENERAL: Well-appearing, well-nourished, and in no acute distress. HEAD: Normocephalic, atraumatic. EYES: PERRLA and EOMI. ENT: Nares clear, no rhinorrhea or epistaxis. Mucous membranes moist. NECK: Supple. CHEST: Clear to auscultation. No respiratory distress. HEART: Regular rate and rhythm. No murmur heard. Normal peripheral pulses. ABDOMEN: Soft, nontender, nondistended, normal active bowel sounds
[2021-06-27] MEDS: FUROSEMIDE INJ 40 MG/4 ML VIAL IV PUSH (20:23)
--- NOTE | 2021-06-27 20:25 | PM.IMHP ---
H&P: HPI History of Present Illness Date/Time: 06/27/21 20:25 Chief Complaint: Shortness of breath, leg swelling Narrative: 71-year-old male with past medical history of CHF, atrial fibrillation, hypertension, chronic kidney disease stage 3 and BPH who presented to the ER with shortness of breath. The patient had been on 20 mg of Lasix 3 times a day. His Lasix had not been filled since July [address] place a that he had a lot of Lasix from prior prescriptions that he used up. He ran out of his Lasix 3-4 days ago. He called his manager relocation's office who told him they would not refill is Lasix until he was seen. The patient has had dyspnea on exertion and orthopnea. He has had progressively worsening peripheral edema for the last fiber 6 days as well. He denies any chest pain or palpitations. He has not been having any cough or congestion. He has been having subjective fevers for the last 2 days in his temperature in the ER was 99.6. He received his 2nd Pfizer COVID vaccine in December. At that time he was admitted to the hospital for diarrhea and was found to have C diff colitis. He reports that he is still having intermittent diarrhea and had a large watery brown incontinent bowel movement while I was in the room. He denies having any current abdominal pain. He denies any recent antibiotic use. He has been taking his probiotic twice daily. He has still been taking loperamide as needed for diarrhea. He denies any current nausea or vomiting. He has been having occasional chills. He has been having some lightheadedness with position changes. He denies any syncope. The patient does have history of pulmonary hypertension and is obese. I was unable to determine if patient has a history of obstructive sleep apnea in the past. He has been incontinent of urine multiple times in the ER after receiving Lasix. He has not been having any hematochezia, melena, or hematuria. He does have multiple missing and broken teeth. He denies any acute oral pain or swelling. He states he has an appointment set up for dental extraction in the near future. History was somewhat difficult to obtain as patient is extremely hard of hearing and had difficulty communicating with staff staff due to the use of masks. Review of Systems Review of Systems: 12 systems were reviewed with pertinent positives and negatives per HPI. Except as documented in the HPI, all other systems were reviewed and are negative. [facility] Past Medical History Medical History (Updated 06/28/21 @ 04:38 by Angelika Hernandez DO) Atrial fibrillation Treated with ablation currently on anticoagulation. With cardioversion September 2020 BPH (benign prostatic hyperplasia) C. difficile colitis (12/2020) CHF (congestive heart failure) Echo 09/07/2020: Left ventricular dimension mildly enlarged, EF 60-65%, mildly increased left ventricular wall thickness, abnormal ventricular septal wall motion due to bundle branch block, diastolic function indeterminate, severe left atrial enlargement, moderate right atrial enlargement, mild mitral valve regurgitation, [id number] tricuspid valve regurgitation, moderate pulmonary hypertension with RVSP of 55 Chronic anemia Chronic kidney disease, stage III (moderate) With baseline creatinine between 1.4-1.7 Hearing loss of aging Extremely hard of hearing Hyperlipidemia Hypertension Pulmonary hypertension Thrombocytopenia Chronic Surgical History Surgical History H/O heart bypass surgery (~10/2014) 3 way bypass History of cardiac radiofrequency ablation (~09/15/20) History of right inguinal hernia repair (~2009) With mesh with subsequent recurrence of hernia History of total left knee replacement Status post right knee replacement (~2011) Family History Family History Sibling Atrial fibrillation Father Heart disease Mother Congestive heart failu
[2021-06-27 21:15] LABS: Lactic Acid Reflex 1.1 mmol/L (0.7-2.1)
--- NOTE | 2021-06-27 21:55 | ADMGEN ---
This patient, Justus Rodriguez, was admitted to [facility] Surg Room 325-01. Patient/family oriented to hospital policies and general routines including ID bracelet, bed and alarms, visiting hours, pain management, procedures, bathroom and other care routines, personal items, smoking policy, room service/diet, and visiting hours. Information on how to activate the Rapid Response Team has been discussed. Patient/Family are encouraged to report perceived risks to care and to ask questions if they do not understand what they are told or what they should do.
[2021-06-27] MEDS: ACIDOPHILUS/BULGARICUS CHEWABLE TABLET 1 TABLET PO (23:55)
[2021-06-28] VITALS (16 sets, daily range): BP systolic 116–149; BP diastolic 40–53; PULSE 49–78; RESP 18–24; TEMP 36.3–36.9; O2SAT 95–97; BMI 33.2
[2021-06-28] MEDS: AMIODARONE HCL 200 MG TABLET PO ×3 (05:52→16:41)
[2021-06-28] MEDS: APIXABAN 5 MG TABLET PO ×3 (05:53→22:26)
[2021-06-28] MEDS: DOXAZOSIN MESYLATE 4 MG TABLET 8 MG PO ×3 (05:54→16:41)
[2021-06-28] MEDS: METOPROLOL TARTRATE 50 MG TAB PO ×2 (05:55→09:54)
[2021-06-28] MEDS: TAMSULOSIN HCL 0.4 MG CAPSULE PO ×3 (05:56→16:41)
[2021-06-28 06:34] LABS: Basophils Percent Auto 0.1 % (0.2-1.2); Hematocrit 28.6 % (42.0-52.0); Hemoglobin 8.9 g/dL (14.0-18.0); Immature Granulocyte Absolute 0.13 K/mm3 (0.00-0.031); Immature Granulocyte Percent A 1.6 % (0-0.5); Lymphocytes Absolute Auto 0.68 K/mm3 (0.9-3.2); Lymphocytes Percent Auto 8.4 % (18.3-44.2); Mean Corpuscular HGB Conc 31.1 g/dl (32-36); Mean Corpuscular Volume 86.7 fl (80-100); Mean Platelet Volume 11.9 fl (7.4-10.4); Monocytes Absolute Auto 0.6 K/mm3 (0.1-0.6); Monocytes Percent Auto 7.8 % (2.6-8.5); Neutrophils Absolute Auto 6.7 K/mm3 (1.3-6.7); Neutrophils Percent Auto 82.1 % (45.5-73.1); Platelet Count Result 90 k/mm3 (150-375); Red Cell Distribution Width 17.1 % (11.5-14.5); White Blood Count 8.1 K/mm3 (4.5-10.0)
[2021-06-28 06:40] LABS: Anion Gap 10 mmol/L (8-16); Blood Urea Nitrogen 20 mg/dL (9-20); Calcium 8.6 mg/dL (8.4-10.2); Carbon Dioxide 20 mmol/L (22-30); Chloride 106 mmol/L (98-107); Estimated CRCL calculation 46 ml/min; Estimated Glomerular Filt Rate 43; Glucose 108 mg/dL (65-110); Potassium 4.4 mmol/L (3.4-5.0); Sodium 136 mmol/L (137-145)
[2021-06-28] MEDS: OXYBUTYNIN CHLORIDE 5 MG TABLET PO (09:54)
[2021-06-28] MEDS: SODIUM BICARBONATE TAB 325 MG TABLET PO ×2 (09:54→16:40)
[2021-06-28] MEDS: lisinopriL 20 MG TABLET PO (09:54)
[2021-06-28] MEDS: ATORVASTATIN 10 MG TABLET PO (09:54)
[2021-06-28] MEDS: ACIDOPHILUS/BULGARICUS CHEWABLE TABLET 1 TABLET PO ×4 (09:54→22:26)
[2021-06-28] MEDS: allopurinoL 300 MG TABLET PO (09:54)
[2021-06-28] MEDS: FUROSEMIDE INJ 40 MG/4 ML VIAL IV PUSH ×2 (09:55→22:26)
--- NOTE | 2021-06-28 14:26 | PM.IMPN ---
Progress Note: A&P Assessment and Plan (1) Acute exacerbation of CHF (congestive heart failure): Qualifiers: Heart failure type: unspecified Qualified Code(s): I50.9 - Heart failure, unspecified Code(s): I50.9 - Heart failure, unspecified Status: Acute Assessment and Plan: Patient has elevated BNP, lower extremity edema and cardiomegaly suggestive of possible CHF exacerbation. Patient has been started on Lasix 40 mg IV b.i.d.. Will monitor strict I&O's and daily weights. Will get echocardiogram Chest x-ray with congestive changes (2) Pneumonia: Qualifiers: Laterality: unspecified laterality Lung location: unspecified part of lung Pneumonia type: due to unspecified organism Qualified Code(s): J18.9 - Pneumonia, unspecified organism Code(s): J18.9 - Pneumonia, unspecified organism Status: Acute Assessment and Plan: Patient had a temperature of 99.6? in the ER and a left lower lobe infiltrate noted on x-ray. He did have both COVID vaccines with the 2nd vaccine in December but at that time he was also suffering from C diff colitis and likely had a suppressed immune system at time of immunization. Will check COVID PCR and treat pneumonia with empiric antibiotics with Rocephin and azithromycin. Will place patient on probiotics given history of C diff colitis. COVID PCR still pending. Continue Rocephin and azithromycin (3) Chronic kidney disease, stage 3: Qualifiers: Chronic kidney disease stage 3 subtype: stage 3a (GFR 45-59) Qualified Code(s): N18.31 - Chronic kidney disease, stage 3a Code(s): N18.30 - Chronic kidney disease, stage 3 unspecified Status: Acute Assessment and Plan: The patient's creatinine is at baseline but he does have worsening serum bicarb. Will add p.o. bicarb replacement. Continue to monitor renal function along with diuresis (4) Uncontrolled hypertension: Code(s): I10 - Essential (primary) hypertension Status: Acute Assessment and Plan: Patient's blood pressures are moderately uncontrolled with systolic blood pressures ranging between 168-190 systolic in the ER. Likely due to volume overload, improved with diuresis Continue his home metoprolol and lisinopril. (5) Diarrhea: Qualifiers: Diarrhea type: unspecified type Qualified Code(s): R19.7 - Diarrhea, unspecified Code(s): R19.7 - Diarrhea, unspecified Status: Acute Assessment and Plan: The patient had a large watery brown incontinent bowel movement in the ER. He stated that this was his 1st incontinent of bowel movement of the day. He does not think he had a diarrheal stool the day before. However he has been taking antidiarrheal medications. Will continue patient on probiotic therapy. If diarrhea continues will consider checking patient for C diff. (6) DVT prophylaxis: Code(s): Z29.9 - Encounter for prophylactic measures, unspecified Status: Acute Assessment and Plan: On apixaban Subjective Date/time seen: 06/28/21 14:26 Interval history: HPI:71-year-old male with past medical history of CHF, atrial fibrillation, hypertension, chronic kidney disease stage 3 and BPH who presented to the ER with shortness of breath. The patient had been on 20 mg of Lasix 3 times a day. His Lasix had not been filled since July 2020 place a that he had a lot of Lasix from prior prescriptions that he used up. He ran out of his Lasix 3-4 days ago. He called his insurance processor's office who told him they would not refill is Lasix until he was seen. The patient has had dyspnea on exertion and orthopnea. He has had progressively worsening peripheral edema for the last fiber 6 days as well. He denies any chest pain or palpitations. He has not been having any cough or congestion. He has been having subjective fevers for the last 2 days in his temperature in the ER was 99.6. He recei
[2021-06-28] MEDS: METOPROLOL TARTRATE 25 MG TABLET PO (23:37)
[2021-06-29] VITALS (12 sets, daily range): BP systolic 116–164; BP diastolic 48–64; PULSE 50–68; RESP 16–24; TEMP 35.9–36.4; O2SAT 96–100
[2021-06-29 07:57] LABS: Anion Gap 11 mmol/L (8-16); Blood Urea Nitrogen 28 mg/dL (9-20); Calcium 8.7 mg/dL (8.4-10.2); Carbon Dioxide 20 mmol/L (22-30); Chloride 103 mmol/L (98-107); Estimated CRCL calculation 50 ml/min; Estimated Glomerular Filt Rate 46; Glucose 99 mg/dL (65-110); Magnesium 1.9 mg/dL (1.6-2.3); Sodium 134 mmol/L (137-145)
[2021-06-29 08:14] LABS: Basophils Percent Auto 0.1 % (0.2-1.2); Eosinophils Absolute Auto 0.1 K/mm3 (0-0.3); Eosinophils Percent Auto 0.7 % (0-4.4); Hematocrit 28.4 % (42.0-52.0); Immature Granulocyte Absolute 0.04 K/mm3 (0.00-0.031); Immature Granulocyte Percent A 0.6 % (0-0.5); Immature Platelet Fraction Pct 5.7 % (0.9-11.2); Lymphocytes Absolute Auto 0.88 K/mm3 (0.9-3.2); Lymphocytes Percent Auto 12.7 % (18.3-44.2); Mean Corpuscular HGB Conc 31.7 g/dl (32-36); Mean Corpuscular Hemoglobin 27.4 pg (26-34); Mean Corpuscular Volume 86.6 fl (80-100); Monocytes Absolute Auto 0.4 K/mm3 (0.1-0.6); Monocytes Percent Auto 5.6 % (2.6-8.5); Neutrophils Absolute Auto 5.6 K/mm3 (1.3-6.7); Neutrophils Percent Auto 80.3 % (45.5-73.1); Platelet Count Result 84 k/mm3 (150-375); Red Blood Count 3.28 M/mm3 (4.6-6.20); Red Cell Distribution Width 17.1 % (11.5-14.5); White Blood Count 6.9 K/mm3 (4.5-10.0)
[2021-06-29] MEDS: OXYBUTYNIN CHLORIDE 5 MG TABLET PO (10:19)
[2021-06-29] MEDS: ACIDOPHILUS/BULGARICUS CHEWABLE TABLET 1 TABLET PO ×4 (10:19→21:54)
[2021-06-29] MEDS: lisinopriL 20 MG TABLET PO (10:19)
[2021-06-29] MEDS: FUROSEMIDE INJ 40 MG/4 ML VIAL IV PUSH ×2 (10:19→21:54)
[2021-06-29] MEDS: SODIUM BICARBONATE TAB 325 MG TABLET PO ×2 (10:20→18:11)
[2021-06-29] MEDS: allopurinoL 300 MG TABLET PO (10:20)
[2021-06-29] MEDS: DOXAZOSIN MESYLATE 4 MG TABLET 8 MG PO ×2 (10:20→18:11)
[2021-06-29] MEDS: AMIODARONE HCL 200 MG TABLET PO ×2 (10:20→18:11)
[2021-06-29] MEDS: APIXABAN 5 MG TABLET PO ×2 (10:23→21:54)
[2021-06-29] MEDS: TAMSULOSIN HCL 0.4 MG CAPSULE PO ×2 (10:23→18:12)
[2021-06-29] MEDS: ATORVASTATIN 10 MG TABLET PO (10:23)
--- NOTE | 2021-06-29 14:51 | PM.IMPN ---
Progress Note: A&P Assessment and Plan (1) Acute exacerbation of CHF (congestive heart failure): Qualifiers: Heart failure type: unspecified Qualified Code(s): I50.9 - Heart failure, unspecified Code(s): I50.9 - Heart failure, unspecified Status: Acute Assessment and Plan: Patient has elevated BNP, lower extremity edema and cardiomegaly suggestive of possible CHF exacerbation. Patient has been started on Lasix 40 mg IV b.i.d.. Will monitor strict I&O's and daily weights. Echocardiogram is pending Chest x-ray with congestive changes possible left lower lobe infiltrate or pneumonia (2) Pneumonia: Qualifiers: Laterality: unspecified laterality Lung location: unspecified part of lung Pneumonia type: due to unspecified organism Qualified Code(s): J18.9 - Pneumonia, unspecified organism Code(s): J18.9 - Pneumonia, unspecified organism Status: Acute Assessment and Plan: Patient had a temperature of 99.6? in the ER and a left lower lobe infiltrate noted on x-ray. He did have both COVID vaccines with the 2nd vaccine in December but at that time he was also suffering from C diff colitis and likely had a suppressed immune system at time of immunization. Will check COVID PCR and treat pneumonia with empiric antibiotics with Rocephin and azithromycin. Will place patient on probiotics given history of C diff colitis. COVID PCR still pending. Continue Rocephin and azithromycin (3) Chronic kidney disease, stage 3: Qualifiers: Chronic kidney disease stage 3 subtype: stage 3a (GFR 45-59) Qualified Code(s): N18.31 - Chronic kidney disease, stage 3a Code(s): N18.30 - Chronic kidney disease, stage 3 unspecified Status: Acute Assessment and Plan: The patient's creatinine is at baseline but he does have worsening serum bicarb. Will add p.o. bicarb replacement. Continue to monitor renal function along with diuresis (4) Uncontrolled hypertension: Code(s): I10 - Essential (primary) hypertension Status: Acute Assessment and Plan: Patient's blood pressures are moderately uncontrolled with systolic blood pressures ranging between 168-190 systolic in the ER. Likely due to volume overload, improved with diuresis Continue his home metoprolol and lisinopril. (5) Diarrhea: Qualifiers: Diarrhea type: unspecified type Qualified Code(s): R19.7 - Diarrhea, unspecified Code(s): R19.7 - Diarrhea, unspecified Status: Acute Assessment and Plan: The patient had a large watery brown incontinent bowel movement in the ER. He stated that this was his 1st incontinent of bowel movement of the day. He does not think he had a diarrheal stool the day before. However he has been taking antidiarrheal medications. Will continue patient on probiotic therapy. If diarrhea continues will consider checking patient for C diff. (6) DVT prophylaxis: Code(s): Z29.9 - Encounter for prophylactic measures, unspecified Status: Acute Assessment and Plan: On apixaban Additional Plan PT OT to see Patient has been admitted as observation status. Subjective Date/time seen: 06/29/21 14:51 Interval history: HPI:71-year-old male with past medical history of CHF, atrial fibrillation, hypertension, chronic kidney disease stage 3 and BPH who presented to the ER with shortness of breath. The patient had been on 20 mg of Lasix 3 times a day. His Lasix had not been filled since July [address] place a that he had a lot of Lasix from prior prescriptions that he used up. He ran out of his Lasix 3-4 days ago. He called his quality control inspector heading's office who told him they would not refill is Lasix until he was seen. The patient has had dyspnea on exertion and orthopnea. He has had progressively worsening peripheral edema for the last fiber 6 days as well. He denies any chest pain or palpitations. He has not been having
[2021-06-29 19:59] LABS: SARS-CoV-2 RNA PCR Negative
[2021-06-30] VITALS (11 sets, daily range): BP systolic 153–155; BP diastolic 54–66; PULSE 51–140; RESP 16–22; TEMP 35.7–37.2; O2SAT 96–100
--- NOTE | 2021-06-30 | ECHO_ITS ---
Patient Info Name: Justus Rodriguez Age: 71 years : 1950 Gender: Male Ht: 70 in Wt: 252 lbs BSA: 2.42 m2 HR: 73 bpm BP: 153 / 54 mmHg Technical Quality: Good Exam Date: 06/30/2021 11:02 AM Exam Location: [facility] Patient Status: Inpatient Admit Date: 06/28/2021 Staff Ordering Physician: Yonis Flores MD Loading Dock Hand: Harini Maddox RDCS Attending Provider: Angelika Hernandez DO Exam Type: CA echo doppler color flow Study Info Indications R06.02 - Shortness of breath Complete two-dimensional, color flow and Doppler transthoracic echocardiogram is performed. Summary 1. Complete two-dimensional, color flow and Doppler transthoracic echocardiogram is performed. 2. Normal LV size, moderate LVH, normal LV systolic function, EF 65-70%. Diastolic dysfunction is present. Mild RV enlargement with hypokinesis. Severe left atrial enlargement. Moderate right atrial enlargement. Normal mitral valve structure, mild MR. Aortic valve sclerosis, maximum velocity 1.85 m/sec, mean gradient 7 mmHg, mild aortic stenosis, calculated aortic valve area 1.9 cm2. Moderate tricuspid regurgitation, severe pulmonary hypertension, RVSP 76 mmHg. Mild pulmonic regurgitation. Dilated IVC. Left Ventricle Left ventricular chamber dimension is normal. Left ventricular systolic function is normal, estimated at 65-70%. There is moderately increased left ventricular wall thickness. The left ventricular diastolic function is abnormal. Right Ventricle Right ventricular chamber dimension is mildly enlarged. Right ventricular systolic function is reduced. Left Atria Left atrial chamber dimension is severely enlarged. Right Atria Right atrial chamber dimension is moderately enlarged. Aortic Valve There is moderate aortic valve sclerosis. There is mild aortic valve stenosis with a peak velocity of 185 cm/s, mean gradient of 7 mmHg, and aortic valve area of 2.0 cm2. Pulmonic Valve The pulmonic valve is normal. There is mild pulmonic regurgitation. Mitral Valve The mitral valve has normal leaflets. There is mild mitral valve regurgitation. Tricuspid Valve The tricuspid valve leaflets are normal. There is moderate tricuspid valve regurgitation. Severe pulmonary hypertension, estimated pulmonary arterial systolic pressure is 76 mmHg. Pericardium/Pleural The pericardium appears normal. Inferior Vena Cava Dilated inferior vena cava with >50% collapse upon inspiration consistent with elevated right atrial pressure, 10 mmHg. Aorta The aortic root size at the sinus of Valsalva is normal. Left Ventricular Outflow Tract Name Value Normal LVOT 2D LVOT Diameter 2.0 cm LVOT Doppler LVOT Peak Gradient 4 mmHg LVOT Mean Gradient 2 mmHg LVOT VTI 25 cm LVOT VTI/AV VTI Ratio 0.6 LVOT Stroke Volume 83 ml LVOT CO 5.1 l/min LVOT CI 2.1 l/min/m2 Pulmonic Valve
[2021-06-30 06:11] LABS: Basophils Percent Auto 0.2 % (0.2-1.2); Eosinophils Absolute Auto 0.1 K/mm3 (0-0.3); Eosinophils Percent Auto 1.4 % (0-4.4); Hematocrit 27.2 % (42.0-52.0); Hemoglobin 8.6 g/dL (14.0-18.0); Immature Granulocyte Absolute 0.03 K/mm3 (0.00-0.031); Immature Granulocyte Percent A 0.7 % (0-0.5); Immature Platelet Fraction Pct 5.8 % (0.9-11.2); Lymphocytes Absolute Auto 0.51 K/mm3 (0.9-3.2); Lymphocytes Percent Auto 11.8 % (18.3-44.2); Mean Corpuscular HGB Conc 31.6 g/dl (32-36); Mean Corpuscular Hemoglobin 27.3 pg (26-34); Mean Corpuscular Volume 86.3 fl (80-100); Mean Platelet Volume 11.1 fl (7.4-10.4); Monocytes Absolute Auto 0.3 K/mm3 (0.1-0.6); Monocytes Percent Auto 6.5 % (2.6-8.5); Neutrophils Absolute Auto 3.5 K/mm3 (1.3-6.7); Neutrophils Percent Auto 79.4 % (45.5-73.1); Platelet Count Result 93 k/mm3 (150-375); Red Blood Count 3.15 M/mm3 (4.6-6.20); Red Cell Distribution Width 17.1 % (11.5-14.5); White Blood Count 4.3 K/mm3 (4.5-10.0)
[2021-06-30 06:20] LABS: Anion Gap 9 mmol/L (8-16); Blood Urea Nitrogen 26 mg/dL (9-20); Calcium 8.7 mg/dL (8.4-10.2); Carbon Dioxide 23 mmol/L (22-30); Chloride 103 mmol/L (98-107); Estimated CRCL calculation 47 ml/min; Estimated Glomerular Filt Rate 43; Glucose 100 mg/dL (65-110); Potassium 3.6 mmol/L (3.4-5.0); Sodium 135 mmol/L (137-145)
[2021-06-30] MEDS: TAMSULOSIN HCL 0.4 MG CAPSULE PO ×2 (09:12→18:51)
[2021-06-30] MEDS: FUROSEMIDE INJ 40 MG/4 ML VIAL IV PUSH ×2 (09:12→21:07)
[2021-06-30] MEDS: DOXAZOSIN MESYLATE 4 MG TABLET 8 MG PO ×2 (09:12→18:51)
[2021-06-30] MEDS: ACIDOPHILUS/BULGARICUS CHEWABLE TABLET 1 TABLET PO ×4 (09:12→21:07)
[2021-06-30] MEDS: APIXABAN 5 MG TABLET PO ×2 (09:12→21:07)
[2021-06-30] MEDS: ATORVASTATIN 10 MG TABLET PO (09:12)
[2021-06-30] MEDS: allopurinoL 300 MG TABLET PO (09:13)
[2021-06-30] MEDS: OXYBUTYNIN CHLORIDE 5 MG TABLET PO (09:13)
[2021-06-30] MEDS: AMIODARONE HCL 200 MG TABLET PO ×2 (09:13→18:50)
[2021-06-30] MEDS: SODIUM BICARBONATE TAB 325 MG TABLET PO ×2 (09:13→18:51)
[2021-06-30] MEDS: lisinopriL 20 MG TABLET PO (09:14)
--- NOTE | 2021-06-30 11:40 | PC.NURSE ---
On 06/30/21, the student, [Tereza Gomes ], provided care and completed [facility] documentation on this patient. I have reviewed the student's documentation and agree with the findings.
--- NOTE | 2021-06-30 17:29 | PM.IMPN ---
Progress Note: A&P Assessment and Plan (1) Acute exacerbation of CHF (congestive heart failure): Qualifiers: Heart failure type: unspecified Qualified Code(s): I50.9 - Heart failure, unspecified Code(s): I50.9 - Heart failure, unspecified Status: Acute Assessment and Plan: Patient has elevated BNP, lower extremity edema and cardiomegaly suggestive of possible CHF exacerbation. Patient has been started on Lasix 40 mg IV b.i.d.. Will monitor strict I&O's and daily weights. Echocardiogram is pending Chest x-ray with congestive changes possible left lower lobe infiltrate or pneumonia 06/30 Interval history: patient is 71-year-old male with history of coronary artery disease presented with shortness of breath with elevated BNP patient is being diuresed with IV Lasix, upon arrival there was a concern for pneumonia on chest x-ray and patient is being treated Rocephin and azithromycin patient states is feeling much better compared to when he arrived swelling in his legs also improved and not a short of breath, patient had a cardiac catheterization essentially normal (2) Pneumonia: Qualifiers: Laterality: unspecified laterality Lung location: unspecified part of lung Pneumonia type: due to unspecified organism Qualified Code(s): J18.9 - Pneumonia, unspecified organism Code(s): J18.9 - Pneumonia, unspecified organism Status: Acute Assessment and Plan: Patient had a temperature of 99.6? in the ER and a left lower lobe infiltrate noted on x-ray. He did have both COVID vaccines with the 2nd vaccine in December but at that time he was also suffering from C diff colitis and likely had a suppressed immune system at time of immunization. Will check COVID PCR and treat pneumonia with empiric antibiotics with Rocephin and azithromycin. Will place patient on probiotics given history of C diff colitis. COVID PCR still pending. Continue Rocephin and azithromycin (3) Chronic kidney disease, stage 3: Qualifiers: Chronic kidney disease stage 3 subtype: stage 3a (GFR 45-59) Qualified Code(s): N18.31 - Chronic kidney disease, stage 3a Code(s): N18.30 - Chronic kidney disease, stage 3 unspecified Status: Acute Assessment and Plan: The patient's creatinine is at baseline but he does have worsening serum bicarb. Will add p.o. bicarb replacement. Continue to monitor renal function along with diuresis (4) Uncontrolled hypertension: Code(s): I10 - Essential (primary) hypertension Status: Acute Assessment and Plan: Patient's blood pressures are moderately uncontrolled with systolic blood pressures ranging between 168-190 systolic in the ER. Likely due to volume overload, improved with diuresis Continue his home metoprolol and lisinopril. (5) Diarrhea: Qualifiers: Diarrhea type: unspecified type Qualified Code(s): R19.7 - Diarrhea, unspecified Code(s): R19.7 - Diarrhea, unspecified Status: Acute Assessment and Plan: The patient had a large watery brown incontinent bowel movement in the ER. He stated that this was his 1st incontinent of bowel movement of the day. He does not think he had a diarrheal stool the day before. However he has been taking antidiarrheal medications. Will continue patient on probiotic therapy. If diarrhea continues will consider checking patient for C diff. (6) DVT prophylaxis: Code(s): Z29.9 - Encounter for prophylactic measures, unspecified Status: Acute Assessment and Plan: On apixaban Additional Plan PT OT to see Patient has been admitted as observation status. Subjective Date/time seen: 06/30/21 17:29 Interval history: HPI:71-year-old male with past medical history of CHF, atrial fibrillation, hypertension, chronic kidney disease stage 3 and BPH who presented to the ER with shortness of breath. The patient had been on 20 mg of Lasix 3 t
--- NOTE | 2021-06-30 20:40 | ECG_ITS ---
Measurements Intervals [place] Rate: 81 P: ND: 0 QRS: 67 QRSD: 116 T: -42 QT: 417 QTc: 487 Interpretive Statements ATRIAL FIBRILLATION INCOMPLETE LEFT BUNDLE BRANCH BLOCK DELAYED PRECORDIAL R/S TRANSITION BORDERLINE ST-T WAVE ABNORMALITY- INF/LAT LEADS BASELINE ARTIFACT- I, II, III, AVR, AVL ABNORMAL ECG Electronically Signed On 07-01-2021 6:36:53 CDT by Gentry Durand D.O.
[2021-07-01] VITALS (13 sets, daily range): BP systolic 116–161; BP diastolic 53–57; PULSE 53–75; RESP 16–20; TEMP 36.4–36.8; O2SAT 96–99
[2021-07-01 06:26] LABS: Anion Gap 11 mmol/L (8-16); Blood Urea Nitrogen 22 mg/dL (9-20); Calcium 8.4 mg/dL (8.4-10.2); Carbon Dioxide 24 mmol/L (22-30); Chloride 102 mmol/L (98-107); Estimated CRCL calculation 57 ml/min; Estimated Glomerular Filt Rate 54; Glucose 103 mg/dL (65-110); Potassium 3.5 mmol/L (3.4-5.0); Sodium 137 mmol/L (137-145)
[2021-07-01] MEDS: FUROSEMIDE INJ 40 MG/4 ML VIAL IV PUSH ×2 (08:35→20:51)
[2021-07-01] MEDS: ACIDOPHILUS/BULGARICUS CHEWABLE TABLET 1 TABLET PO ×4 (08:40→20:50)
[2021-07-01] MEDS: POTASSIUM CHLORIDE 20 MEQ PACKET (FOR LIQUID) 40 MEQ PO (08:40)
[2021-07-01] MEDS: lisinopriL 20 MG TABLET PO (08:40)
[2021-07-01] MEDS: allopurinoL 300 MG TABLET PO (08:41)
[2021-07-01] MEDS: AMIODARONE HCL 200 MG TABLET PO (08:41)
[2021-07-01] MEDS: SODIUM BICARBONATE TAB 325 MG TABLET PO ×2 (08:41→17:36)
[2021-07-01] MEDS: DOXAZOSIN MESYLATE 4 MG TABLET 8 MG PO ×2 (08:41→17:36)
[2021-07-01] MEDS: TAMSULOSIN HCL 0.4 MG CAPSULE PO ×2 (08:41→17:36)
[2021-07-01] MEDS: OXYBUTYNIN CHLORIDE 5 MG TABLET PO (08:42)
[2021-07-01] MEDS: ATORVASTATIN 10 MG TABLET PO (08:42)
[2021-07-01] MEDS: APIXABAN 5 MG TABLET PO ×2 (08:42→20:50)
--- NOTE | 2021-07-01 09:06 | PM.CNCAR ---
Assessment and Plan Additional Plan 71-year-old man with: Coronary artery disease with surgical revascularization 6 years ago also a well documented history of paroxysmal atrial fibrillation which has been somewhat difficult to control as described above. He came to the hospital in sinus rhythm he is taking amiodarone chronically and beta-aris was withdrawn because of concern regarding sinus bradycardia. Couple of days after that he had an episode of self-limited asymptomatic AFib with RVR last night. He appears to be relatively stable this morning and is back in sinus rhythm I would recommend: Reduce amiodarone to 200 mg daily as I recommended in my office note in February. Resume the metoprolol at the previous dose to 50 mg b.i.d.. The episode of a recurrent AF last night could easily be attributed to beta-aris withdrawal Continue systemic anticoagulation with apixaban Continue Lasix at would anticipate discharge within the next 24-48 hours Thank you for asking me to see this gentleman in consultation Bhavesh Valdez MD [facility] History of Present Illness History of Present Illness Consult date/time: 07/01/21 09:06 Consult reason: atrial fibrillation Reason For Visit: Acute CHF Exacerbation, Pneumonia Narrative: This is a 71-year-old man well known to me with a history of coronary artery disease and atrial fibrillation. I am seeing him at the request of the hospitalist because of an episode of atrial fib which occurred yesterday afternoon while he was in the hospital on telemetry. Patient came to the hospital 3 days ago with some shortness of breath and appeared to be in some mild congestive heart failure which is attributed to the fact that he was not receiving his furosemide as he ran out of his prescription and could not apparently get it refilled. He was out of it for at least several days and became more short of breath. He has been receiving furosemide since admission several days ago and says he does feel better in terms of his breathing. He has been on telemetry since admission although I do not believe he was having any specific arrhythmias. He was in sinus rhythm/sinus bradycardia and asymptomatic with respect to that. Last evening he had a wide QRS tachycardia that was initially regular and then became irregular consistent with atrial fibrillation a 12 lead ECG was done which does demonstrate a recurrence of atrial fib. That did not last very long this morning he is back in sinus bradycardia. He has a history of coronary artery disease dating back to October of 2014 when he presented with ischemic chest pain after catheterization was done he was referred for bypass surgery for multivessel coronary disease he received an SONDRA graft to the LAD, radial artery graft to OM1 and a saphenous vein graft to the right coronary artery. He did well following surgery but did develop atrial fibrillation which was more difficult to treat then standard postop AFib. It required prolonged treatment with amiodarone eventually a MARCE cardioversion about a month after surgery. He had the amiodarone discontinued but then had a recurrence of atrial fibrillation. He was placed back on treatment and cardioverted again. When 3rd recurrence of atrial fib occurred he had ablation procedure he went back to [facility] where he had his bypass operation done underwent a pulmonary vein isolation procedure. Once again an attempt was made to eliminate his antiarrhythmic treatment but yet once again he reverted back to atrial fib. He was cardioverted the last time in I believe September of this year and since then has been maintained on amiodarone. When I saw him in the office February of this year for his last appointment he was in sinus rhythm I reduced the dosage to 200 mg daily with the intention of maintaining antiarrhythmic treatment for the halfway given the above history. Following admission to the hospital a was in sinus rhythm/sinus bradycardia. His beta-aris
--- NOTE | 2021-07-01 09:17 | P.CDI_ITS ---
CDI Query Clarification Request -Acute exacerbation of CHF has been documented. -06/30 echo summary: [id number]%, diastolic dysfunction is present Please further specify type of acute CHF: * Systolic * Diastolic * Both systolic and diastolic * Unable to determine <Erin Parrish RN - Last Filed: 07/02/21 10:17> Clarified Diagnosis (1) Acute on chronic diastolic (congestive) heart failure: Code(s): I50.33 - Acute on chronic diastolic (congestive) heart failure <Erin Parrish RN - Last Filed: 07/02/21 10:17> Status: Acute <Erin Parrish RN - Last Filed: 07/02/21 10:17> Assessment and Plan: most likely patient has acute on chronic diastolic CHF <Ewa Isaacs MD - Last Filed: 07/05/21 12:28>
[2021-07-01] MEDS: METOPROLOL TARTRATE 50 MG TAB PO ×2 (10:17→20:50)
--- NOTE | 2021-07-01 16:15 | PM.IMPN ---
Progress Note: A&P Assessment and Plan (1) Acute exacerbation of CHF (congestive heart failure): Qualifiers: Heart failure type: unspecified Qualified Code(s): I50.9 - Heart failure, unspecified Code(s): I50.9 - Heart failure, unspecified Status: Acute Assessment and Plan: Patient has elevated BNP, lower extremity edema and cardiomegaly suggestive of possible CHF exacerbation. Patient has been started on Lasix 40 mg IV b.i.d.. Will monitor strict I&O's and daily weights. Echocardiogram is pending Chest x-ray with congestive changes possible left lower lobe infiltrate or pneumonia 06/30 Interval history: patient is 71-year-old male with history of coronary artery disease presented with shortness of breath with elevated BNP patient is being diuresed with IV Lasix, upon arrival there was a concern for pneumonia on chest x-ray and patient is being treated Rocephin and azithromycin patient states is feeling much better compared to when he arrived swelling in his legs also improved and not a short of breath, patient had a cardiac catheterization essentially normal 07/01/2021 interval history patient remains clinically stable however last night patient had atrial fibrillation with bradycardia, patient had episode of bradycardia today patient and metoprolol 50 mg b.i.d. was held, patient was seen by rig mechanic today patient sinus rhythm rig mechanic recommending to reduce amiodarone 200 mg daily and resume metoprolol 50 mg b.i.d., will continue to monitor patient will continue to diurese the patient as symptoms are improved further recommendation to follow, will have PT OT evaluate the patient (2) Pneumonia: Qualifiers: Laterality: unspecified laterality Lung location: unspecified part of lung Pneumonia type: due to unspecified organism Qualified Code(s): J18.9 - Pneumonia, unspecified organism Code(s): J18.9 - Pneumonia, unspecified organism Status: Acute Assessment and Plan: Patient had a temperature of 99.6? in the ER and a left lower lobe infiltrate noted on x-ray. He did have both COVID vaccines with the 2nd vaccine in December but at that time he was also suffering from C diff colitis and likely had a suppressed immune system at time of immunization. Will check COVID PCR and treat pneumonia with empiric antibiotics with Rocephin and azithromycin. Will place patient on probiotics given history of C diff colitis. COVID PCR still pending. Continue Rocephin and azithromycin (3) Chronic kidney disease, stage 3: Qualifiers: Chronic kidney disease stage 3 subtype: stage 3a (GFR 45-59) Qualified Code(s): N18.31 - Chronic kidney disease, stage 3a Code(s): N18.30 - Chronic kidney disease, stage 3 unspecified Status: Acute Assessment and Plan: The patient's creatinine is at baseline but he does have worsening serum bicarb. Will add p.o. bicarb replacement. Continue to monitor renal function along with diuresis (4) Uncontrolled hypertension: Code(s): I10 - Essential (primary) hypertension Status: Acute Assessment and Plan: Patient's blood pressures are moderately uncontrolled with systolic blood pressures ranging between 168-190 systolic in the ER. Likely due to volume overload, improved with diuresis Continue his home metoprolol and lisinopril. (5) Diarrhea: Qualifiers: Diarrhea type: unspecified type Qualified Code(s): R19.7 - Diarrhea, unspecified Code(s): R19.7 - Diarrhea, unspecified Status: Acute Assessment and Plan: The patient had a large watery brown incontinent bowel movement in the ER. He stated that this was his 1st incontinent of bowel movement of the day. He does not think he had a diarrheal stool the day before. However he has been taking antidiarrheal medications. Will continue patient on probiotic therapy. If diarrhea continues will consider checking patient f
[2021-07-02] VITALS (8 sets, daily range): BP systolic 136–152; BP diastolic 53–65; PULSE 49–70; RESP 18; TEMP 36.1; O2SAT 97
[2021-07-02 06:43] LABS: Anion Gap 11 mmol/L (8-16); Blood Urea Nitrogen 21 mg/dL (9-20); Calcium 8.5 mg/dL (8.4-10.2); Carbon Dioxide 25 mmol/L (22-30); Chloride 101 mmol/L (98-107); Estimated CRCL calculation 49 ml/min; Estimated Glomerular Filt Rate 46; Glucose 99 mg/dL (65-110); Potassium 3.7 mmol/L (3.4-5.0); Sodium 137 mmol/L (137-145)
[2021-07-02] MEDS: APIXABAN 5 MG TABLET PO (09:02)
[2021-07-02] MEDS: lisinopriL 20 MG TABLET PO (09:03)
[2021-07-02] MEDS: TAMSULOSIN HCL 0.4 MG CAPSULE PO ×2 (09:03→17:02)
[2021-07-02] MEDS: METOPROLOL TARTRATE 50 MG TAB PO (09:03)
[2021-07-02] MEDS: AMIODARONE HCL 200 MG TABLET PO (09:03)
--- NOTE | 2021-07-02 09:03 | PM.PNCARD ---
Progress Note: A&P Assessment and Plan (1) Acute exacerbation of CHF (congestive heart failure): Qualifiers: Heart failure type: unspecified Qualified Code(s): I50.9 - Heart failure, unspecified Code(s): I50.9 - Heart failure, unspecified Status: Acute Assessment and Plan: Slightly worsening diastolic heart failure. Now compensated. DC IV furosemide. Switch him back to his home dose of furosemide 40 mg p.o. b.i.d.. Continue his other drug regimen. (2) Atrial fibrillation: Code(s): I48.91 - Unspecified atrial fibrillation Status: Chronic Assessment and Plan: In sinus rhythm. Continue amiodarone and metoprolol out as outlined and yesterday's consultative note. On Eliquis (3) Hypertension: Code(s): I10 - Essential (primary) hypertension Status: Chronic Assessment and Plan: Reasonably controlled (4) CKD (chronic kidney disease) stage 3, GFR 30-59 ml/min: Code(s): N18.30 - Chronic kidney disease, stage 3 unspecified Status: Acute Assessment and Plan: Stable Okay for discharge from my perspective Subjective Date/time seen: 07/02/21 09:03 Interval history: HPI:71-year-old male with past medical history of CHF, atrial fibrillation, hypertension, chronic kidney disease stage 3 and BPH who presented to the ER with shortness of breath. The patient had been on 20 mg of Lasix 3 times a day. His Lasix had not been filled since July [address] place a that he had a lot of Lasix from prior prescriptions that he used up. He ran out of his Lasix 3-4 days ago. Date of service 07/02/2021: Swelling is better. Shortness breath has improved. Feels okay. No chest pain. Review of Systems Constitutional: Constitutional: Reports no additional constitutional complaints Eyes: Eyes: Reports no additional eye complaints Cardiovascular: Cardiovascular: Reports as per HPI Respiratory: Respiratory: Reports no additional respiratory complaints Gastrointestinal: Gastrointestinal: Reports diarrhea Musculoskeletal: Musculoskeletal: Reports no additional musculoskeletal complaints Integumentary/Breasts: Skin/Breast: Reports system reviewed and no additional complaints, except as docu Endocrine: Endocrine: Reports no additional endocrine complaints Hematologic/Lymphatic: Hematologic/Lymphatic: Reports no additional hematologic/lymphatic complaints Allergic/Immunologic: Allergic/Immunologic: Reports no additional allergic/immunologic complaints Exam Const: General: comfortable and no acute distress Other: Pleasant overweight gentleman no apparent distress enjoying his breakfast HENMT: Mouth: Yes moist mucous membranes Eyes: Sclera: sclerae normal Pupils: Equal, round and reactive pupils present Neck: Neck: supple and no JVD Other: Carotid pulses are intact no no audible bruits Resp: Effort & Inspection: normal respiratory effort Auscultation: clear to auscultation bilaterally Cardio: Rate: regular rate Rhythm: regular rhythm Other: Patient has a grade 2/6 crescendo decrescendo murmur which does not radiate from the left sternal border GI: Auscultation: normal bowel sounds Skin: General skin exam: normal color Neuro: Cranial nerves: Yes Equal, round and reactive pupils present Cognition (Neuro): normal cognition Extrem: Other: Minimal pretibial edema Psych: Appearance: grossly normal Objective Data Vital Signs Vital Signs: Vital Signs - 24 hr 07/01/21 10:17 07/01/21 12:00 07/01/21 14:00 Temperature 36.8 C Pulse Rate 75 53 L 59 L Respiratory Rate 16 Blood Pressure 116/57 L Pulse Oximetry 99 07/01/21 16:00 07/01/21 20:00 07/01/21 20:50 Temperature Pulse Rate 57 L 63 67 Respiratory Rate Blood Pressure Pulse Oximetry 07/01/21 21:19 07/01/21 21:42 07/02/21 00:00 Temperature 36.4 C L Pulse Rate 60 60 Respiratory Rate 18 Blood Pressure 156/53 H Pulse Oximetry 96 98 07/02/21 04:
[2021-07-02] MEDS: ACIDOPHILUS/BULGARICUS CHEWABLE TABLET 1 TABLET PO ×3 (09:04→17:02)
[2021-07-02] MEDS: FUROSEMIDE INJ 40 MG/4 ML VIAL IV PUSH (09:04)
[2021-07-02] MEDS: allopurinoL 300 MG TABLET PO (09:04)
[2021-07-02] MEDS: OXYBUTYNIN CHLORIDE 5 MG TABLET PO (09:04)
[2021-07-02] MEDS: SODIUM BICARBONATE TAB 325 MG TABLET PO ×2 (09:04→17:03)
[2021-07-02] MEDS: ATORVASTATIN 10 MG TABLET PO (09:04)
[2021-07-02] MEDS: DOXAZOSIN MESYLATE 4 MG TABLET 8 MG PO ×2 (09:04→17:03)
--- NOTE | 2021-07-02 15:57 | PM.DS ---
DS: Admitting Diagnosis Discharge Date 07/02/2021 Admitting Diagnosis Chief Complaint: Shortness of breath, leg swelling DS: Discharge Diagnosis Discharge Diagnosis (1) Acute exacerbation of CHF (congestive heart failure): Qualifiers: Heart failure type: unspecified Qualified Code(s): I50.9 - Heart failure, unspecified Code(s): I50.9 - Heart failure, unspecified Status: Acute Assessment and Plan: Patient has elevated BNP, lower extremity edema and cardiomegaly suggestive of possible CHF exacerbation. Patient has been started on Lasix 40 mg IV b.i.d.. Will monitor strict I&O's and daily weights. Echocardiogram is pending Chest x-ray with congestive changes possible left lower lobe infiltrate or pneumonia 06/30 Interval history: patient is 71-year-old male with history of coronary artery disease presented with shortness of breath with elevated BNP patient is being diuresed with IV Lasix, upon arrival there was a concern for pneumonia on chest x-ray and patient is being treated Rocephin and azithromycin patient states is feeling much better compared to when he arrived swelling in his legs also improved and not a short of breath, patient had a cardiac catheterization essentially normal 07/01/2021 interval history patient remains clinically stable however last night patient had atrial fibrillation with bradycardia, patient had episode of bradycardia today patient and metoprolol 50 mg b.i.d. was held, patient was seen by roller turner today patient sinus rhythm roller turner recommending to reduce amiodarone 200 mg daily and resume metoprolol 50 mg b.i.d., will continue to monitor patient will continue to diurese the patient as symptoms are improved further recommendation to follow, will have PT OT evaluate the patient (2) Pneumonia: Qualifiers: Laterality: unspecified laterality Lung location: unspecified part of lung Pneumonia type: due to unspecified organism Qualified Code(s): J18.9 - Pneumonia, unspecified organism Code(s): J18.9 - Pneumonia, unspecified organism Status: Acute Assessment and Plan: Patient had a temperature of 99.6? in the ER and a left lower lobe infiltrate noted on x-ray. He did have both COVID vaccines with the 2nd vaccine in December but at that time he was also suffering from C diff colitis and likely had a suppressed immune system at time of immunization. Will check COVID PCR and treat pneumonia with empiric antibiotics with Rocephin and azithromycin. Will place patient on probiotics given history of C diff colitis. COVID PCR still pending. Continue Rocephin and azithromycin (3) Chronic kidney disease, stage 3: Qualifiers: Chronic kidney disease stage 3 subtype: stage 3a (GFR 45-59) Qualified Code(s): N18.31 - Chronic kidney disease, stage 3a Code(s): N18.30 - Chronic kidney disease, stage 3 unspecified Status: Acute Assessment and Plan: The patient's creatinine is at baseline but he does have worsening serum bicarb. Will add p.o. bicarb replacement. Continue to monitor renal function along with diuresis (4) Uncontrolled hypertension: Code(s): I10 - Essential (primary) hypertension Status: Acute Assessment and Plan: Patient's blood pressures are moderately uncontrolled with systolic blood pressures ranging between 168-190 systolic in the ER. Likely due to volume overload, improved with diuresis Continue his home metoprolol and lisinopril. (5) Diarrhea: Qualifiers: Diarrhea type: unspecified type Qualified Code(s): R19.7 - Diarrhea, unspecified Code(s): R19.7 - Diarrhea, unspecified Status: Acute Assessment and Plan: The patient had a large watery brown incontinent bowel movement in the ER. He stated that this was his 1st incontinent of bowel movement of the day. He does not think he had a diarrheal stool the day before. However he has been taki
[2021-07-02] MEDS: FUROSEMIDE 40 MG TABLET PO (17:03)
== END 2021-07-02 17:55 | disposition home or self-care (01) | DRG 291 ==
LOC: ANHED 20:03 → ANH3MEDSUR 20:59
PROVIDERS: Emergency Medicine; Internal Medicine; Admitting Provider Internal Medicine; Emergency Provider Emergency Medicine; PCP Family Medicine Adolescent Medicine; Visit Provider Family Medicine
DX: I13.0 Hypertensive heart and chronic kidney disease with heart failure and stage 1 through stage 4 chronic kidney disease, or unspecified chronic kidney disease (principal); J18.9 Pneumonia, unspecified organism; I50.33 Acute on chronic diastolic (congestive) heart failure; N18.31 Chronic kidney disease, stage 3a; Z20.822 Contact with and (suspected) exposure to COVID-19; I27.20 Pulmonary hypertension, unspecified; D69.6 Thrombocytopenia, unspecified; I25.10 Atherosclerotic heart disease of native coronary artery without angina pectoris; N40.0 Benign prostatic hyperplasia without lower urinary tract symptoms; E78.5 Hyperlipidemia, unspecified; H91.90 Unspecified hearing loss, unspecified ear; I48.91 Unspecified atrial fibrillation; Z96.653 Presence of artificial knee joint, bilateral; E66.9 Obesity, unspecified; Z68.33 Body mass index [BMI] 33.0-33.9, adult; Z79.01 Long term (current) use of anticoagulants; Z79.899 Other long term (current) drug therapy; Z87.19 Personal history of other diseases of the digestive system
CPT/HCPCS: 36415; 71046; 80048; 83605; 83735; 83880; 84484; 85025; 85055; 85610; 85730; 87040; 93005; 93306; 96365; 96375; 97110; 97116; 97161; 97165; 97535; 99285; A9270; C9803; G0378; J0456; J0696; J1940; U0003; U0005

== ENCOUNTER 2023-04-07 02:29 | Day surgery (SDC) | payer MEDICARE, SELFPAY ==
[2023-03-29 11:15] VITALS: BMI 34.1
--- NOTE | 2023-04-07 11:31 | WPDANESEPPF ---
Anes - Initial Pre Proc Eval Procedure: Operation Date: 04/07/23 12:30 Proposed Procedures p Esophagogastroduodenoscopy & Colonoscopy - Daniel Pandya MD Date/Time: 04/07/23 11:31 Surgeon: Daniel Pandya MD Pre Op Diagnosis: Iron Deficiency Anemia Patient Data Age: 72 Gender: M Height: 1.78 m Weight: 108 kg Allergies Allergy/AdvReac Type Severity Reaction Status Date / Time No Known Allergies Allergy Verified 04/07/23 11:11 Home Medications Medication Instructions Recorded Confirmed Type allopurinol 300 mg tablet 300 mg PO DAILY #90 tabs 01/16/23 04/07/23 Rx doxazosin 8 mg tablet 8 mg PO BID #180 tabs 01/16/23 04/07/23 Rx oxybutynin chloride 5 mg tablet 5 mg PO DAILY #90 tabs 01/16/23 04/07/23 Rx tamsulosin 0.4 mg capsule 0.4 mg PO BID #180 caps 01/16/23 04/07/23 Rx propranolol 120 mg capsule,24 120 mg PO DAILY #90 caps 02/07/23 04/07/23 Rx hr,extended release apixaban 5 mg tablet (Eliquis) 5 mg PO BID #180 tabs 03/18/23 04/07/23 Rx atorvastatin 10 mg tablet 10 mg PO DAILY #90 tabs 03/18/23 04/07/23 Rx ferrous sulfate 325 mg (65 mg 325 mg PO BID #60 tabs 03/18/23 04/07/23 Rx iron) tablet lisinopril 20 mg tablet 20 mg PO DAILY #90 tabs 03/18/23 04/07/23 Rx amiodarone 200 mg tablet (Pacerone) 200 mg PO DAILY 03/29/23 04/07/23 History furosemide 40 mg tablet 40 mg PO DAILY 03/29/23 04/07/23 History B-complex with vitamin C 1 cap PO DAILY #90 caps 04/04/23 04/07/23 Rx Patient hx anesthesia problems: none Family hx anesthesia problems: none Results Review: All pre-operative results and documents have been reviewed as part of the pre-operative evaluation. [facility] Past Medical History Medical History Atrial fibrillation Treated with ablation currently on anticoagulation. With cardioversion September 2020 BPH (benign prostatic hyperplasia) C. difficile colitis (12/2020) CHF (congestive heart failure) Echo 09/07/2020: Left ventricular dimension mildly enlarged, EF 60-65%, mildly increased left ventricular wall thickness, abnormal ventricular septal wall motion due to bundle branch block, diastolic function indeterminate, severe left atrial enlargement, moderate right atrial enlargement, mild mitral valve regurgitation, [id number] tricuspid valve regurgitation, moderate pulmonary hypertension with RVSP of 55 Chronic anemia Hyperlipidemia Pulmonary hypertension Thrombocytopenia Chronic Surgical History Surgical History H/O heart bypass surgery (10/2014) 3 way bypass History of cardiac radiofrequency ablation (09/15/20) History of right inguinal hernia repair (2009) With mesh with subsequent recurrence of hernia History of total left knee replacement History of total right knee replacement (2011) Family History Family History Sibling Atrial fibrillation Father Heart disease Mother Congestive heart failure Social History Social History Social History: He has never been and does not have any children. 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 He is a lifelong nonsmoker and only rarely drinks alcohol in small amounts. He does not use illicit substances. Primary care physician: Dr. Leon Cordero Code status: Full code (the patient does not have written advanced directives) Surrogate decision maker: Mariusz (brother) Smoking status: Never smoker Second hand tobacco smoke exposure: No Alcohol intake: current Substance use: never Substance use type: does not use Lack of Transportation: No Lack of Food: Never True Current Housing: I Have Housing Concerned About Future Housing: No Difficulty Paying Gas/Electric Bills: No Difficulty Paying for Meds: No Currently Unemployed: No Ed
[2023-04-07] MEDS: LACTATED RINGERS 1,000 ML 150 ML IV CONT (11:34)
[2023-04-07 11:35] VITALS: BP 144/56; PULSE 50; RESP 20; TEMP 36; O2SAT 100; BMI 33.0
--- NOTE | 2023-04-07 11:37 | WPDHPUPDATE1 ---
History and Physical Update Update Date/Time: 04/07/23 11:37 History and Physical has been reviewed, including an updated exam of the patient. There are NO changes in the patient's condition. Risks, benefits, and alternatives have been discussed and questions answered. Patient agrees to proceed with procedure.
--- NOTE | 2023-04-07 12:00 | SUR.OPER ---
EGD ended at 1156. Colonoscopy began at 1201.
[2023-04-07 12:21] VITALS: BP 91/43; PULSE 55; RESP 22; O2SAT 98
[2023-04-07 12:31] VITALS: BP 127/54; PULSE 57; RESP 24; O2SAT 100
[2023-04-07 12:36] LABS: Basophils Percent Auto 0.4 % (0.2-1.2); Eosinophils Absolute Auto 0.1 K/mm3 (0-0.3); Eosinophils Percent Auto 2.1 % (0-4.4); Hematocrit 25.2 % (42.0-52.0); Hemoglobin 7.6 g/dL (14.0-18.0); Immature Granulocyte Absolute 0.01 K/mm3 (0.00-0.031); Immature Granulocyte Percent A 0.4 % (0-0.5); Immature Platelet Fraction Pct 2.3 % (0.9-11.2); Lymphocytes Absolute Auto 0.73 K/mm3 (0.9-3.2); Lymphocytes Percent Auto 30.7 % (18.3-44.2); Mean Corpuscular HGB Conc 30.2 g/dl (32-36); Mean Corpuscular Hemoglobin 25.6 pg (26-34); Mean Corpuscular Volume 84.8 fl (80-100); Mean Platelet Volume 11.2 fl (7.4-10.4); Monocytes Absolute Auto 0.2 K/mm3 (0.1-0.6); Neutrophils Absolute Auto 1.4 K/mm3 (1.3-6.7); Neutrophils Percent Auto 58.4 % (45.5-73.1); Platelet Count Result 93 k/mm3 (150-375); Red Blood Count 2.97 M/mm3 (4.6-6.20); Red Cell Distribution Width 20.8 % (11.5-14.5); White Blood Count 2.4 K/mm3 (4.5-10.0)
[2023-04-07 12:41] VITALS: BP 130/53; PULSE 52; RESP 22; O2SAT 100
[2023-04-07 12:59] LABS: Ovalocytes 1+ (NORMAL); Poikilocytosis 2+ (NORMAL); Tear Drop Cells 1+ (NORMAL)
[2023-04-07 13:00] LABS: Anisocytosis 2+ (NORMAL); Schistocytes 1+ (NORMAL)
--- NOTE | 2023-04-07 13:34 | SUR.PHASEII ---
1320: DR NOEL AWARE OF PT'S LAB RESULTS, DR NOEL SPOKE WITH PT AND EXPLAINED RESULTS, PT STATES UNDERSTANDING. PT'S BROTHER AT BEDSIDE.
== END 2023-04-07 13:36 | disposition home or self-care (01) ==
PROVIDERS: PCP Family Medicine Adolescent Medicine; Visit Provider Internal Medicine Gastroenterology
PROC: 0DJ08ZZ Inspection of Upper Intestinal Tract, Via Natural or Artificial Opening Endoscopic (ICD-10-PCS; CPT 43235; principal; 2023-04-07 12:30)
DX: D50.9 Iron deficiency anemia, unspecified (principal); D12.2 Benign neoplasm of ascending colon; D12.3 Benign neoplasm of transverse colon; D12.5 Benign neoplasm of sigmoid colon; K64.8 Other hemorrhoids; R19.5 Other fecal abnormalities; I48.91 Unspecified atrial fibrillation; I11.0 Hypertensive heart disease with heart failure; I50.9 Heart failure, unspecified; E78.5 Hyperlipidemia, unspecified; D69.6 Thrombocytopenia, unspecified; N40.0 Benign prostatic hyperplasia without lower urinary tract symptoms; Z91.81 History of falling; Z79.01 Long term (current) use of anticoagulants; Z95.1 Presence of aortocoronary bypass graft; E66.9 Obesity, unspecified; Z68.33 Body mass index [BMI] 33.0-33.9, adult
CPT/HCPCS: 45385; 43235; 36415; 85025; 85055; 88305; J2001; J2704; J7120

== ENCOUNTER 2023-04-22 15:30 | Outpatient (CLI) | payer MEDICARE, SELFPAY ==
[2023-04-22 15:51] LABS: Basophils Percent Auto 0.2 % (0.2-1.2); Eosinophils Percent Auto 0.6 % (0-4.4); Hematocrit 28.4 % (42.0-52.0); Hemoglobin 8.8 g/dL (14.0-18.0); Immature Granulocyte Absolute 0.02 K/mm3 (0.00-0.031); Immature Granulocyte Percent A 0.4 % (0-0.5); Lymphocytes Absolute Auto 0.66 K/mm3 (0.9-3.2); Lymphocytes Percent Auto 14.3 % (18.3-44.2); Mean Corpuscular Hemoglobin 26.1 pg (26-34); Mean Corpuscular Volume 84.3 fl (80-100); Mean Platelet Volume 9.5 fl (7.4-10.4); Monocytes Absolute Auto 0.3 K/mm3 (0.1-0.6); Monocytes Percent Auto 7.1 % (2.6-8.5); Neutrophils Absolute Auto 3.6 K/mm3 (1.3-6.7); Neutrophils Percent Auto 77.4 % (45.5-73.1); Platelet Count Result 134 k/mm3 (150-375); Red Blood Count 3.37 M/mm3 (4.6-6.20); Red Cell Distribution Width 19.9 % (11.5-14.5); White Blood Count 4.6 K/mm3 (4.5-10.0)
[2023-04-22 16:30] LABS: Iron 23 ug/dL (49-181)
[2023-04-22 16:33] LABS: Alanine Aminotransferase 26 U/L (6-50); Albumin Level 3.8 g/dL (3.5-5.1); Alkaline Phosphatase 92 U/L (38-126); Anion Gap 10 mmol/L (8-16); Aspartate Amino Transferase 34 U/L (17-59); Bilirubin,Total 0.7 mg/dL (0.2-1.3); Blood Urea Nitrogen 46 mg/dL (9-20); Calcium 8.6 mg/dL (8.4-10.2); Carbon Dioxide 21 mmol/L (22-30); Chloride 104 mmol/L (98-107); Estimated Glomerular Filt Rate 25; Glucose 124 mg/dL (65-110); Lactate Dehydrogenase 181 U/L (120-246); Potassium 5.2 mmol/L (3.4-5.0); Sodium 135 mmol/L (137-145)
[2023-04-22 17:07] LABS: Percent Iron Saturation 8 % (20-50)
[2023-04-26 20:24] LABS: Methylmalonic Acid 318 nmol/L (87-318)
== END 2023-04-22 15:31 | disposition home or self-care (01) ==
LOC: ANHLAB 15:33
PROVIDERS: PCP Family Medicine Adolescent Medicine; Visit Provider Internal Medicine Hematology & Oncology
DX: D64.9 Anemia, unspecified (principal)
CPT/HCPCS: 36415; 80053; 82728; 83540; 83550; 83615; 83921; 85025

== ENCOUNTER 2023-04-26 08:23 | Outpatient (CLI) | payer MEDICARE, SELFPAY ==
--- NOTE | ~2023-04-26 | XR_ITS ---
EXAMINATION: XR small bowel follow through DATE: 04/26/2023 10:04 INDICATION: Iron deficiency anemia. TECHNIQUE: Oral contrast was administered, and a time course of radiographs of the abdomen was obtain ed. Fluoroscopy of the small bowel was performed. Fluoroscopy exposure time was 0.2 minutes. The tota l number of images was 13. COMPARISON: CT abdomen and pelvis 12/13/2020 FINDINGS: There are no dilated loops of bowel. There is no mass or stricture. The terminal ileum is normal. Tra nsit time from the stomach to proximal colon was approximately 30 minutes. IMPRESSION: 1. Normal small bowel series. Reviewed, dictated and finalized at location A.
== END 2023-04-26 08:24 | disposition home or self-care (01) ==
LOC: ANHIMG 08:31
PROVIDERS: PCP Family Medicine Adolescent Medicine; Visit Provider Internal Medicine Gastroenterology
DX: D50.9 Iron deficiency anemia, unspecified (principal)
CPT/HCPCS: 74250

== ENCOUNTER 2023-05-05 01:55 | Day surgery (SDC) | payer MEDICARE, SELFPAY ==
[2023-05-04 13:18] VITALS: BMI 32.3
[2023-05-05] VITALS (7 sets, daily range): BP systolic 101–122; BP diastolic 53–94; PULSE 81–100; RESP 15–20; TEMP 36.3–36.8; O2SAT 98–100; BMI 32.3
--- NOTE | ~2023-05-05 | BM_ITS ---
EXAMINATION: CCL bone marrow asp w bx diag ORDER COMPLETED DATE: 05/05/2023 09:40 INDICATION: Chronic anemia TECHNIQUE: A time-out was performed to verify the patient's name, date of , and procedure to b e performed. The procedure including the risks, benefits, and alternatives was discussed with the pat ient. Risks discussed included bleeding and infection. The patient understood the risks and agreed to proceed. The skin overlying the right posterior iliac spine was prepped and draped in usual sterile fashion. Anesthetic was administered with 1% lidocaine subcutaneously. Systemic analgesia was provide d with 50 mcg fentanyl IV. An 11 gauge needle was inserted into the ilium with fluoroscopic guidance. Bone marrow was aspirated. An 8 gauge needle was then inserted into the ilium with fluoroscopic guid ance. A core bone marrow biopsy was obtained. There were no immediate complications. Fluoroscopy expo sure time was 0.1 minutes. The total number of images was 57. FINDINGS: Real-time fluoroscopy demonstrates a marker overlying the right posterior iliac spine. IMPRESSION: 1. Successful fluoro-guided bone marrow aspiration. 2. Successful fluoro-guided bone marrow core biopsy. Reviewed, dictated and finalized at location A.
[2023-05-05 07:57] LABS: Eosinophils Percent Auto 1.2 % (0-4.4); Hematocrit 26.4 % (42.0-52.0); Hemoglobin 7.8 g/dL (14.0-18.0); Immature Granulocyte Absolute 0.01 K/mm3 (0.00-0.031); Immature Granulocyte Percent A 0.4 % (0-0.5); Lymphocytes Absolute Auto 0.56 K/mm3 (0.9-3.2); Lymphocytes Percent Auto 21.7 % (18.3-44.2); Mean Corpuscular HGB Conc 29.5 g/dl (32-36); Mean Corpuscular Hemoglobin 25.9 pg (26-34); Mean Corpuscular Volume 87.7 fl (80-100); Mean Platelet Volume 9.8 fl (7.4-10.4); Monocytes Absolute Auto 0.2 K/mm3 (0.1-0.6); Neutrophils Absolute Auto 1.8 K/mm3 (1.3-6.7); Neutrophils Percent Auto 69.7 % (45.5-73.1); Platelet Count Result 119 k/mm3 (150-375); Red Blood Count 3.01 M/mm3 (4.6-6.20); Red Cell Distribution Width 19.5 % (11.5-14.5); White Blood Count 2.6 K/mm3 (4.5-10.0)
[2023-05-05 08:11] LABS: INR 1.4; Prothrombin Time 18.4 Seconds (11.1-14.7)
[2023-05-05 08:14] LABS: Anisocytosis 2+ (NORMAL)
[2023-05-05 08:15] LABS: Ovalocytes 1+ (NORMAL); Schistocytes None Seen (NORMAL)
--- NOTE | 2023-05-05 09:03 | WPDMODSED ---
Moderate Sedation Note-Pt Data Patient Data Diagnosis: anemia Present Complaint: weakness Procedure to be performed/Plan: bone marrow biopsy Allergies Allergy/AdvReac Type Severity Reaction Status Date / Time No Known Allergies Allergy Verified 05/05/23 07:46 Home Medications Medication Instructions Recorded Confirmed Type allopurinol 300 mg tablet 300 mg PO DAILY #90 tabs 01/16/23 05/05/23 Rx doxazosin 8 mg tablet 8 mg PO BID #180 tabs 01/16/23 05/05/23 Rx oxybutynin chloride 5 mg tablet 5 mg PO DAILY #90 tabs 01/16/23 05/05/23 Rx tamsulosin 0.4 mg capsule 0.4 mg PO BID #180 caps 01/16/23 05/05/23 Rx propranolol 120 mg capsule,24 120 mg PO DAILY #90 caps 02/07/23 05/05/23 Rx hr,extended release apixaban 5 mg tablet (Eliquis) 5 mg PO BID #180 tabs 03/18/23 05/04/23 Rx atorvastatin 10 mg tablet 10 mg PO DAILY #90 tabs 03/18/23 05/05/23 Rx lisinopril 20 mg tablet 20 mg PO DAILY #90 tabs 03/18/23 05/05/23 Rx amiodarone 200 mg tablet (Pacerone) 200 mg PO DAILY 03/29/23 05/05/23 History furosemide 40 mg tablet 40 mg PO DAILY 03/29/23 05/04/23 History B-complex with vitamin C 1 cap PO DAILY #90 caps 04/04/23 05/05/23 Rx ferrous sulfate 325 mg (65 mg 325 mg PO BID 05/04/23 05/05/23 History iron) tablet Sedation/Anesthesia: No previous sedation/anesthesia problems (including family history). [facility] Past Medical History Medical History Atrial fibrillation Treated with ablation currently on anticoagulation. With cardioversion September 2020 BPH (benign prostatic hyperplasia) C. difficile colitis (12/2020) CHF (congestive heart failure) Echo 09/07/2020: Left ventricular dimension mildly enlarged, EF 60-65%, mildly increased left ventricular wall thickness, abnormal ventricular septal wall motion due to bundle branch block, diastolic function indeterminate, severe left atrial enlargement, moderate right atrial enlargement, mild mitral valve regurgitation, [id number] tricuspid valve regurgitation, moderate pulmonary hypertension with RVSP of 55 Chronic anemia Hyperlipidemia Pulmonary hypertension Thrombocytopenia Chronic Surgical History Surgical History H/O heart bypass surgery (10/2014) 3 way bypass History of cardiac radiofrequency ablation (09/15/20) History of right inguinal hernia repair (2009) With mesh with subsequent recurrence of hernia History of total left knee replacement History of total right knee replacement (2011) Family History Family History Sibling Atrial fibrillation Father Heart disease Mother Congestive heart failure Social History Social History Social History: He has never been and does not have any children. 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 He is a lifelong nonsmoker and only rarely drinks alcohol in small amounts. He does not use illicit substances. Primary care physician: Dr. Leon Cordero Code status: Full code (the patient does not have written advanced directives) Surrogate decision maker: Mariusz (brother) Smoking status: Never smoker Second hand tobacco smoke exposure: No Alcohol intake: never Substance use: never Substance use type: does not use Lack of Transportation: No Lack of Food: Never True Current Housing: I Have Housing Concerned About Future Housing: No Difficulty Paying Gas/Electric Bills: No Difficulty Paying for Meds: No Currently Unemployed: No Education: Bachelor's Degree Difficulty w/ Childcare or Family Care: No Living arrangements: with family Occupation/Education: retired Gender identity (if verbalized by the patient): Male Sexual Orientation (if Verbalized by the Patient): Straight or Heterosexual Spiritual care con
== END 2023-05-05 10:53 | disposition home or self-care (01) ==
PROVIDERS: PCP Family Medicine Adolescent Medicine; Referring Provider Internal Medicine Hematology & Oncology; Visit Provider Radiology Diagnostic Radiology
DX: D64.9 Anemia, unspecified (principal); D61.818 Other pancytopenia; Z79.01 Long term (current) use of anticoagulants; I48.91 Unspecified atrial fibrillation; I50.9 Heart failure, unspecified; E78.5 Hyperlipidemia, unspecified; N40.0 Benign prostatic hyperplasia without lower urinary tract symptoms; Z95.1 Presence of aortocoronary bypass graft
CPT/HCPCS: 36415; 38222; 85025; 85610; 88184; 88185; 88305; 88311; 88313; J1642; J1644; J2250; J3010; J7040

== ENCOUNTER 2023-08-10 14:33 | Outpatient (CLI) | payer MEDICARE, SELFPAY ==
[2023-08-10 14:56] LABS: Basophils Percent Auto 0.5 % (0.2-1.2); Eosinophils Absolute Auto 0.1 K/mm3 (0-0.3); Eosinophils Percent Auto 3.2 % (0-4.4); Hematocrit 30.2 % (42.0-52.0); Hemoglobin 9.1 g/dL (14.0-18.0); Immature Granulocyte Absolute 0.01 K/mm3 (0.00-0.031); Immature Granulocyte Percent A 0.5 % (0-0.5); Lymphocytes Absolute Auto 0.56 K/mm3 (0.9-3.2); Lymphocytes Percent Auto 29.5 % (18.3-44.2); Mean Corpuscular HGB Conc 30.1 g/dl (32-36); Mean Corpuscular Hemoglobin 26.8 pg (26-34); Mean Corpuscular Volume 89.1 fl (80-100); Mean Platelet Volume 10.2 fl (7.4-10.4); Monocytes Absolute Auto 0.2 K/mm3 (0.1-0.6); Monocytes Percent Auto 8.9 % (2.6-8.5); Neutrophils Absolute Auto 1.1 K/mm3 (1.3-6.7); Neutrophils Percent Auto 57.4 % (45.5-73.1); Platelet Count Result 96 k/mm3 (150-375); Red Blood Count 3.39 M/mm3 (4.6-6.20)
[2023-08-10 14:58] LABS: White Blood Count 1.9 K/mm3 (4.5-10.0)
[2023-08-10 16:48] LABS: Iron 23 ug/dL (49-181)
[2023-08-10 17:00] LABS: Alanine Aminotransferase 22 U/L (6-50); Albumin Level 3.6 g/dL (3.5-5.1); Alkaline Phosphatase 77 U/L (38-126); Anion Gap 9 mmol/L (8-16); Aspartate Amino Transferase 38 U/L (17-59); Bilirubin,Total 0.5 mg/dL (0.2-1.3); Blood Urea Nitrogen 36 mg/dL (9-20); Calcium 8.6 mg/dL (8.4-10.2); Carbon Dioxide 26 mmol/L (22-30); Chloride 104 mmol/L (98-107); Estimated Glomerular Filt Rate 33; Glucose 95 mg/dL (65-110); Potassium 4.4 mmol/L (3.4-5.0); Sodium 139 mmol/L (137-145)
[2023-08-10 17:01] LABS: Percent Iron Saturation 7 % (20-50)
[2023-08-10 18:12] LABS: Folic Acid > 20.0 ng/mL (2.76->20)
== END 2023-08-10 14:34 | disposition home or self-care (01) ==
PROVIDERS: PCP Family Medicine Adolescent Medicine; Visit Provider Internal Medicine Hematology & Oncology
DX: D64.9 Anemia, unspecified (principal)
CPT/HCPCS: 36415; 80053; 82607; 82728; 82746; 83540; 83550; 85025

== ENCOUNTER 2023-11-18 11:48 | Outpatient (CLI) | payer MEDICARE, SELFPAY ==
[2023-11-22 12:29] LABS: EBV Nuclear Ab Interpretation Past; EBV Virus Capsid Ag IgM Ab <36.00 U/mL (<36.00)
[2023-11-24 13:37] LABS: Angiotensin Converting Enzyme 29.7 U/L (9-67)
== END 2023-11-18 11:49 | disposition home or self-care (01) ==
LOC: ANHLAB 11:50
PROVIDERS: PCP Family Medicine Adolescent Medicine; Visit Provider Internal Medicine Hematology & Oncology
DX: R16.1 Splenomegaly, not elsewhere classified (principal)
CPT/HCPCS: 36415; 82164; 86664; 86665

== ENCOUNTER 2023-12-27 03:47 | Inpatient (IN) | payer MEDICARE, SELFPAY ==
[2023-12-27] VITALS (26 sets, daily range): BP systolic 102–131; BP diastolic 31–84; PULSE 79–118; RESP 14–28; TEMP 35.8–37; O2SAT 95–100; BMI 34.7
--- NOTE | ~2023-12-27 | US_ITS ---
EXAMINATION: US abdomen limited DATE: 12/28/2023 12:07 INDICATION: Pancytopenia TECHNIQUE: Multiple grayscale and Doppler ultrasound images of the abdomen were obtained. COMPARISON: None FINDINGS: The pancreatic body is normal in appearance. The pancreatic head and tail are obscured. Liver has no rmal echogenicity and contour, with a smooth surface. No liver lesion identified. No intrahepatic fadia iary duct dilation suspected. Portal venous flow was seen in the hepatopetal, normal direction. There is increased pulsatility to the portal venous waveform which can be seen with congestive heart failu re, tricuspid regurgitation or other cause of elevated right heart pressures. There is a collection o f multiple mobile and shadowing hyperechoic gallstones along the dependent wall of the gallbladder. I n addition there is a 5 mm more hypoechoic polyp along the nondependent gallbladder wall. Gallbladder is otherwise unremarkable with no abnormal wall thickening or dilation. Sonographic Cuellar sign was reported as negative by the tobacco sampler.The mid common bile duct measures up to [address] maximal diame ter which is normal and tapers to 2 mm in the distal duct. The visualized proximal aorta and inferior vena cava are normal. IMPRESSION: 1. Cholelithiasis and likely benign 5 mm gallbladder polyp. 2. Increased portal venous pulsatility which can be seen with heart failure, tricuspid regurgitation or other cause of elevated right heart pressures. Reviewed, dictated and finalized at location A. IMPRESSION: 1. Cholelithiasis and likely benign 5 mm gallbladder polyp. 2. Increased portal venous pulsatility which can be seen with heart failure, tr icuspid regurgitation or other cause of elevated right heart pressures.
--- NOTE | 2023-12-27 05:22 | ED.GENADULT ---
HPI - General Adult General Chief complaint: Dental/Oral Stated complaint: bleeding teeth Time Seen by Provider: 12/27/23 04:03 History of Present Illness HPI narrative: Patient 73-year-old gentleman who presents emergency department with chief complaint of bleeding from dental extraction site. Patient reports that he is on blood thinners and reports that he stopped them on Tuesday had the teeth pulled and reports that today he started having more bleeding. The patient states that he has tried applying pressure without success. Patient now reports that he is having diarrhea because of the blood that he has been swallowing Related Data Home Medications Medication Instructions Recorded Confirmed furosemide 40 mg tablet 40 mg PO DAILY 03/29/23 10/18/23 Allergies Allergy/AdvReac Type Severity Reaction Status Date / Time No Known Allergies Allergy Verified 12/27/23 03:58 Review of Systems Review of Systems: A 10 system review of systems was completed on the patient and is negative except for what is stated in the HPI. Nursing and ancillary documentation was reviewed. [facility] Past Medical History Medical History Atrial fibrillation Treated with ablation currently on anticoagulation. With cardioversion September 2020 BPH (benign prostatic hyperplasia) C. difficile colitis (12/2020) CHF (congestive heart failure) Echo 09/07/2020: Left ventricular dimension mildly enlarged, EF 60-65%, mildly increased left ventricular wall thickness, abnormal ventricular septal wall motion due to bundle branch block, diastolic function indeterminate, severe left atrial enlargement, moderate right atrial enlargement, mild mitral valve regurgitation, [id number] tricuspid valve regurgitation, moderate pulmonary hypertension with RVSP of 55 Chronic anemia Hyperlipidemia Pulmonary hypertension Thrombocytopenia Chronic Surgical History Surgical History H/O heart bypass surgery (10/2014) 3 way bypass History of cardiac radiofrequency ablation (09/15/20) History of right inguinal hernia repair (2009) With mesh with subsequent recurrence of hernia History of total left knee replacement History of total right knee replacement (2011) Family History Family History Sibling Atrial fibrillation Father Heart disease Mother Congestive heart failure Social History Social History Social History: He has never been and does not have any children. 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 He is a lifelong nonsmoker and only rarely drinks alcohol in small amounts. He does not use illicit substances. Primary care physician: Dr. Leon Cordero Code status: Full code (the patient does not have written advanced directives) Surrogate decision maker: Mariusz (brother) Smoking status: Never smoker Second hand tobacco smoke exposure: No Alcohol intake: never Substance use: never Substance use type: does not use Do You Feel Safe in your Home?: Yes Lack of Transportation: No Lack of Food: Never True Current Housing: I Have Housing Concerned About Future Housing: No Difficulty Paying Gas/Electric Bills: No Difficulty Paying for Meds: No Currently Unemployed: No Education: Bachelor's Degree Difficulty w/ Childcare or Family Care: No Living arrangements: with family Occupation/Education: retired Gender identity (if verbalized by the patient): Male Sexual Orientation (if Verbalized by the Patient): Straight or Heterosexual Spiritual care concerns: No Agree to blood products: Yes Exam Narrative: GENERAL: Well-appearing, well-nourished, and in no acute distress. HEAD: Normocephalic, atraumatic. EYES: PERRLA
[2023-12-27 05:31] LABS: Basophils Percent Auto 0.5 % (0.2-1.2); Eosinophils Absolute Auto 0.1 K/mm3 (0-0.3); Eosinophils Percent Auto 2.8 % (0-4.4); Hematocrit 23.9 % (42.0-52.0); Hemoglobin 7.4 g/dL (14.0-18.0); Immature Granulocyte Absolute 0.02 K/mm3 (0.00-0.031); Immature Granulocyte Percent A 0.5 % (0-0.5); Immature Platelet Fraction Pct 3.3 % (0.9-11.2); Lymphocytes Absolute Auto 0.82 K/mm3 (0.9-3.2); Lymphocytes Percent Auto 19.2 % (18.3-44.2); Mean Corpuscular Volume 96.8 fl (80-100); Mean Platelet Volume 11.4 fl (7.4-10.4); Monocytes Absolute Auto 0.3 K/mm3 (0.1-0.6); Platelet Count Result 91 k/mm3 (150-375); Red Blood Count 2.47 M/mm3 (4.6-6.20); Red Cell Distribution Width 15.2 % (11.5-14.5); White Blood Count 4.3 K/mm3 (4.5-10.0)
[2023-12-27 05:40] LABS: Anion Gap 3 mmol/L (4-12); Blood Urea Nitrogen 51 mg/dL (9-20); Calcium 8.5 mg/dL (8.4-10.2); Carbon Dioxide 28 mmol/L (22-30); Chloride 106 mmol/L (98-107); Estimated CRCL calculation 34 ml/min; Estimated Glomerular Filt Rate 29; Glucose 128 mg/dL (65-110); Potassium 5.3 mmol/L (3.4-5.0); Sodium 137 mmol/L (137-145)
[2023-12-27 05:41] LABS: Anisocytosis 1+; Hypochromasia 2+; Ovalocytes 1+; Platelet Estimate Decreased (Adequate); Schistocytes Rare
--- NOTE | 2023-12-27 05:47 | PC.NURSE ---
Patient was assisted to the restroom and once he was done had bright red blood on the toilet seat. Notified EDP Dr. Durand. No new orders.
--- NOTE | 2023-12-27 05:53 | PC.NURSE ---
Dr Durand notified of concern of lower GI bleeding d/t bright red blood. No new orders received.
--- NOTE | 2023-12-27 07:45 | ADMGEN ---
This patient, Justus Rodriguez, was admitted to IMU Room 232-01. Patient/family oriented to hospital policies and general routines including ID bracelet, bed and alarms, visiting hours, pain management, procedures, bathroom and other care routines, personal items, smoking policy, room service/diet, and visiting hours. Information on how to activate the Rapid Response Team has been discussed. Patient/Family are encouraged to report perceived risks to care and to ask questions if they do not understand what they are told or what they should do.
[2023-12-27 08:06] LABS: Glucose Point of Care 119 mg/dl (65-105)
--- NOTE | 2023-12-27 10:24 | PM.IMHP ---
H&P: HPI History of Present Illness Date/Time: 12/27/23 10:24 Chief Complaint: Bleeding bleeding Narrative: Patient 73-year-old gentleman who presents emergency department with chief complaint of bleeding from dental extraction site.? Patient reports that he is on blood thinners and reports that he stopped them on Tuesday. He had his few teeth pulled out yesterday. He was doing okay without any bleeding throughout the day however in the evening he started to bleed more. He tried applying pressure but failed and hence presented to the ED for evaluation. Patient also reports that he is having diarrhea because of the blood that he has been swallowing. In the ED he was noted to have hemoglobin of 7.4 which is 3 point lower than what he had last month. He received a dose of Kcentra and has been ordered to get 2 unit of packed red blood cell. He is currently getting 1 unit of PRBC transfused. His bleeding has stopped since this a.m.. Denies any chest pain her shortness of breath. Denies any fever chills. Review of Systems Review of Systems: - CONSTITUTIONAL: Denies weight loss, fever and chills. - HEENT: Denies changes in vision and hearing - RESPIRATORY: Denies SOB and cough. - CV: Denies palpitations and CP. - GI: Denies abdominal pain, nausea, vomiting and diarrhea. - : Denies dysuria and urinary frequency. - MSK: Denies myalgia and joint pain. - SKIN: Denies rash and pruritus. - NEUROLOGICAL: Denies headache and syncope. - PSYCHIATRIC: Denies recent changes in mood. Denies anxiety and depression. [facility] Past Medical History Medical History Atrial fibrillation Treated with ablation currently on anticoagulation. With cardioversion September 2020 BPH (benign prostatic hyperplasia) C. difficile colitis (12/2020) CHF (congestive heart failure) Echo 09/07/2020: Left ventricular dimension mildly enlarged, EF 60-65%, mildly increased left ventricular wall thickness, abnormal ventricular septal wall motion due to bundle branch block, diastolic function indeterminate, severe left atrial enlargement, moderate right atrial enlargement, mild mitral valve regurgitation, [id number] tricuspid valve regurgitation, moderate pulmonary hypertension with RVSP of 55 Chronic anemia Hyperlipidemia Pulmonary hypertension Thrombocytopenia Chronic Surgical History Surgical History H/O heart bypass surgery (10/2014) 3 way bypass History of cardiac radiofrequency ablation (09/15/20) History of right inguinal hernia repair (2009) With mesh with subsequent recurrence of hernia History of total left knee replacement History of total right knee replacement (2011) Family History Family History Sibling Atrial fibrillation Father Heart disease Mother Congestive heart failure Social History Social History Social History: He has never been and does not have any children. 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 He is a lifelong nonsmoker and only rarely drinks alcohol in small amounts. He does not use illicit substances. Primary care physician: Dr. Leon Cordero Code status: Full code (the patient does not have written advanced directives) Surrogate decision maker: Mariusz (brother) Smoking status: Never smoker Second hand tobacco smoke exposure: No Alcohol intake: never Substance use: never Substance use type: does not use Do You Feel Safe in your Home?: Yes Lack of Transportation: No Lack of Food: Never True Current Housing: I Have Housing Concerned About Future Housing: No Difficulty Paying Gas/Electric Bills: No Difficulty Paying for Meds: No Currently Unemployed: No Education: Don't Know Di
--- NOTE | 2023-12-27 14:16 | PHAR ---
Unused Kcentra dose returned to pharmacy 12/26 afternoon. Per RN, pt has since stopped bleeding, but verifying with provider that dose was not to have been given
[2023-12-27 16:40] LABS: Hematocrit 21.3 % (42.0-52.0)
[2023-12-27 17:11] LABS: Hemoglobin 6.7 g/dL (14.0-18.0)
[2023-12-27 17:39] LABS: Hematocrit 21.3 % (42.0-52.0)
[2023-12-27 17:43] LABS: Hemoglobin 6.9 g/dL (14.0-18.0)
[2023-12-27 23:43] LABS: Hematocrit 23.4 % (42.0-52.0); Hemoglobin 7.7 g/dL (14.0-18.0)
[2023-12-28] VITALS (14 sets, daily range): BP systolic 93–122; BP diastolic 32–67; PULSE 93–120; RESP 16–20; TEMP 36.3–36.7; O2SAT 96–100
[2023-12-28 05:22] LABS: Hematocrit 21.7 % (42.0-52.0); Immature Platelet Fraction Pct 2.8 % (0.9-11.2); Mean Corpuscular HGB Conc 31.8 g/dl (32-36); Mean Corpuscular Hemoglobin 29.9 pg (26-34); Mean Corpuscular Volume 93.9 fl (80-100); Mean Platelet Volume 10.7 fl (7.4-10.4); Platelet Count Result 65 k/mm3 (150-375); Red Blood Count 2.31 M/mm3 (4.6-6.20); Red Cell Distribution Width 16.1 % (11.5-14.5)
[2023-12-28 05:29] LABS: Hemoglobin 6.9 g/dL (14.0-18.0)
[2023-12-28 05:30] LABS: White Blood Count 1.9 K/mm3 (4.5-10.0)
[2023-12-28 05:31] LABS: Alanine Aminotransferase 12 U/L (6-50); Albumin Level 2.8 g/dL (3.5-5.1); Alkaline Phosphatase 51 U/L (38-126); Anion Gap 5 mmol/L (4-12); Aspartate Amino Transferase 19 U/L (17-59); Bilirubin,Total 0.9 mg/dL (0.2-1.3); Blood Urea Nitrogen 44 mg/dL (9-20); Calcium 8.3 mg/dL (8.4-10.2); Carbon Dioxide 21 mmol/L (22-30); Chloride 108 mmol/L (98-107); Estimated CRCL calculation 35 ml/min; Estimated Glomerular Filt Rate 31; Glucose 102 mg/dL (65-110); Magnesium 2.8 mg/dL (1.6-2.3); Sodium 134 mmol/L (137-145)
[2023-12-28 05:51] LABS: Basophils Absolute Manual 0.07 K/mm3 (0.0-0.1); Basophils Percent Manual 4 % (0-1); Hypochromasia 2+; Lymphocytes Absolute Manual 0.22 K/mm3 (1.1-4.5); Neutrophils Percent Manual 84 % (46-73); Platelet Estimate Decreased (Adequate); Total Cells Counted 25
[2023-12-28 05:52] LABS: Microcytosis 1+ (NORMAL); Ovalocytes 1+; Schistocytes None Seen
[2023-12-28 05:53] LABS: Anisocytosis 1+
--- NOTE | 2023-12-28 08:57 | WPDGICN ---
Assessment and Plan Assessment and plan (1) Acute on chronic blood loss anemia: Code(s): D62 - Acute posthemorrhagic anemia Status: Acute Assessment and Plan: Has acute on chronic anemia with baseline hemoglobin of 10 with KAVON, found in the ER to have a hemoglobin 6.9 and has been transfused 3 units of packed red blood cells. He has not had any further bleeding from his mouth or rectal bleeding since 8:00 p.m. yesterday evening. Hemoglobin however has dropped as of this morning to 6.9. He was on Eliquis due to chronic AFib and last dose was 12/22 this was reversed by the ER due to continued bleeding. This is likely multifactorial from oral bleeding and chronic anemia. -BUN elevated from baseline. he is tachycardiac -had an EGD and colonoscopy 04/[address] Pandya with no evidence of GI bleeding along with a small bowel follow-through that was negative. He has also had hematological evaluation with bone marrow biopsy in April of 2023 that showed abnormalities. -Due to acute drop in HGB and rectal bleeding, will plan on repeat Colonoscopy tomorrow and if negative, will move forward with EGD same day. -Will start PPI BID -Monitor H&H and transfuse PRN -Continue to hold Eliquis -Will check INR, iron panel, ferritin, b12 and folate at this time. (2) Hemorrhage of tooth socket: Code(s): K91.840 - Postprocedural hemorrhage of a digestive system organ or structure following a digestive system procedure Status: Acute Assessment and Plan: No further bleeding (3) Hematochezia: Code(s): K92.1 - Melena Status: Acute Assessment and Plan: Last episode 8 pm last evening, no further bleeding this AM. Monitor Notify if any further bleeding or change in vitals He is tachycardiac, recommend monitoring Monitor H&H (4) Pancytopenia: Code(s): D61.818 - Other pancytopenia Status: Acute Assessment and Plan: Will get US to assess for cirrhosis, last imaging in 2020 with splenomegaly but normal liver will check INR especially in leui of bleeding. (5) KAVON (iron deficiency anemia): Code(s): D50.9 - Iron deficiency anemia, unspecified Status: Acute (6) Gastro-esophageal reflux disease without esophagitis: Code(s): K21.9 - Gastro-esophageal reflux disease without esophagitis Status: Acute (7) Atherosclerotic heart disease of [place] coronary artery without angina pectoris: Code(s): I25.10 - Atherosclerotic heart disease of [place] coronary artery without angina pectoris Status: Acute (8) Chronic diastolic (congestive) heart failure: Code(s): I50.32 - Chronic diastolic (congestive) heart failure Status: Acute (9) Chronic kidney disease, stage 3a: Code(s): N18.31 - Chronic kidney disease, stage 3a Status: Acute (10) Atrial fibrillation: Code(s): I48.91 - Unspecified atrial fibrillation Status: Chronic Assessment and Plan: Eliquis is on hold, last dose 12/22 (11) Hx of adenomatous colonic polyps: Code(s): Z86.010 - Personal history of colonic polyps Status: Acute Assessment and Plan: History of adenomatous colon polyps, surveillance was not due till 2027 GI Consult Note Consult date/time: 12/28/23 08:15 Reason for consult: Pleasant 73-year-old male asked to be seen at the request of the hospitalist for blood in the stool. He has a history of iron deficiency anemia and chronic pancytopenia, following with Dr. Herron and had a bone marrow biopsy 04/27 were negative for any myeloproliferative process. Also past medical history of coronary artery disease history of bypass, congestive heart failure, pulmonary hypertension, BPH, AFib, C diff colitis, right inguinal hernia repair and bilateral knee replacements. He had 4 teeth pulled 3 days ago and had difficulty stopping the bleeding and reports large amounts of bright red blood coming from the tooth extraction site. He was on Анна
[2023-12-28 08:58] LABS: Iron 86 ug/dL (49-181)
[2023-12-28 09:07] LABS: Percent Iron Saturation 38 % (20-50)
[2023-12-28 09:24] LABS: INR 1.3; Prothrombin Time 16.8 Seconds (11.1-14.7)
[2023-12-28 10:10] LABS: Folic Acid > 20.0 ng/mL (2.76->20)
[2023-12-28] MEDS: BISACODYL 5 MG TABLET EC PO (16:03)
[2023-12-28] MEDS: polyethylene glycoL 3350 238 GM BOTTLE PO (16:03)
--- NOTE | 2023-12-28 16:59 | PM.IMPN ---
Progress Note: A&P Assessment and Plan (1) Hemorrhage of tooth socket: Code(s): K91.840 - Postprocedural hemorrhage of a digestive system organ or structure following a digestive system procedure Status: Acute Assessment and Plan: Patient presents with complaint of bleeding from his dental extraction site. He had his teeth pulled on Tuesday (12/22). He had stopped his blood thinner which include apixaban on Tuesday. This appears to be slowing. Should resolve in time. Monitor. (2) Acute on chronic blood loss anemia: Code(s): D62 - Acute posthemorrhagic anemia Status: Acute Assessment and Plan: Hgb 10.1 last month. In the ED, his Hgb was down to 7.4. He was noted to have continued bleeding from the tooth socket. He received Kcentra in the ER for reversal of apixaban due to ongoing bleeding and 2 unit of PRBCs. Patient received a 3rd unit as well. Iron studies noted. B12/folate normal. Hgb 6.9 this morning but physician/allergy/immunology wanted to monitor. He has known pancytopenia Repeat HH. Serial HH and transfuse as needed. (3) Hematochezia: Code(s): K92.1 - Melena Status: Acute Assessment and Plan: Patient also having hematochezia. He had EGD and colonoscopy in Apr 2023 s/p polypectomies but showing no evidence of bleeding. He did have multiple medium sized internal hemorrhoids. SBFT in April 2023 was normal. Colonocopy (+/- EGD) planned. Apprecaite GI inpuit Start PPI since could be due to rapid transit. (4) Pancytopenia: Code(s): D61.818 - Other pancytopenia Status: Acute Assessment and Plan: Patient with known pancytopenia. Etiology unclear. BM bx in April showed no acute findings to explain the pancytopenia. He actually had hypercellular BM for age but no significant dyspoiesis. So more of a peripheral destructive disease. Plt down to 65K and WBC 1900 (ANC 1600); Pancytopenia can worsen in the face of acute blood loss Abd US dupont noted with cholelithiasis and likely benign 5mm GB polyp. Spleen not enlarged. Monitor (5) Atrial fibrillation: Code(s): I48.91 - Unspecified atrial fibrillation Status: Chronic Assessment and Plan: Rate mostly well controlled. BP soft so will need to be careful about resuming some home meds. Monitor on tele Eliquis stopped (6) Gastro-esophageal reflux disease without esophagitis: Code(s): K21.9 - Gastro-esophageal reflux disease without esophagitis Status: Acute Assessment and Plan: As above Start PPI (7) Chronic kidney disease, stage 3a: Code(s): N18.31 - Chronic kidney disease, stage 3a Status: Acute Assessment and Plan: Cr with wide range (as high as 3.4 last year) but baseline likely 1.8-2.2 range. Cr within baseline so monitor for now (8) Atherosclerotic heart disease of [place] coronary artery without angina pectoris: Code(s): I25.10 - Atherosclerotic heart disease of [place] coronary artery without angina pectoris Status: Acute Assessment and Plan: Stable. Review and resume home medications (9) Chronic diastolic (congestive) heart failure: Code(s): I50.32 - Chronic diastolic (congestive) heart failure Status: Acute Assessment and Plan: Increased portal venous pulsatility probably from fluid overload. He did receive 3U PRBC but no Lasix. Pedal edema noted. Not on his home Lasix here. Will give one dose of lasix now with plans for IV Lasix later once he is done with his bowel prep Concerned about intravascular dehydration Plan DVT prophylaxis - SCDs Code status - full Subjective Date/time seen: 12/28/23 16:59 Interval history: 73yo male with AFib on Eliquis, dCHF and CAD s/p CABG here for mouth bleeding and hematochezia. Assuming care. Chart reviewed. Patient slept off and on last night. No chest pain or shortness of breath. No nausea or vomiting. He still having blood from hi
[2023-12-28 17:35] LABS: Hematocrit 24.6 % (42.0-52.0); Hemoglobin 7.9 g/dL (14.0-18.0)
[2023-12-28] MEDS: FUROSEMIDE INJ 40 MG/4 ML VIAL IV PUSH (18:01)
[2023-12-28] MEDS: FERROUS SULFATE 325 MG TABLET DR PO (18:01)
[2023-12-28] MEDS: TAMSULOSIN HCL 0.4 MG CAPSULE PO (18:01)
[2023-12-28] MEDS: DOXAZOSIN MESYLATE 4 MG TABLET 8 MG PO (18:01)
[2023-12-28] MEDS: PANTOPRAZOLE SODIUM IV 40 MG VIAL IV PUSH (18:01)
[2023-12-28] MEDS: CHLORHEXIDINE GLUCONATE 0.12% ORAL RINSE 473 ML BTL (*BKC) 10 ML SWISH/SPIT (18:13)
[2023-12-28] MEDS: AMOXICILLIN/CLAVULANATE K 500-125 MG TAB 1 TABLET PO (18:13)
[2023-12-29] VITALS (24 sets, daily range): BP systolic 98–129; BP diastolic 45–88; PULSE 71–122; RESP 17–30; TEMP 36.2–36.7; O2SAT 99–100
[2023-12-29 00:23] LABS: Hematocrit 24.7 % (42.0-52.0); Hemoglobin 7.9 g/dL (14.0-18.0)
[2023-12-29] MEDS: MAGNESIUM CITRATE 300 ML BTL PO (04:20)
[2023-12-29 04:35] LABS: Basophils Percent Auto 0.5 % (0.2-1.2); Eosinophils Absolute Auto 0.1 K/mm3 (0-0.3); Eosinophils Percent Auto 3.8 % (0-4.4); Hematocrit 23.5 % (42.0-52.0); Hemoglobin 7.5 g/dL (14.0-18.0); Immature Platelet Fraction Pct 3.4 % (0.9-11.2); Lymphocytes Absolute Auto 0.55 K/mm3 (0.9-3.2); Lymphocytes Percent Auto 29.7 % (18.3-44.2); Mean Corpuscular HGB Conc 31.9 g/dl (32-36); Mean Corpuscular Hemoglobin 30.4 pg (26-34); Mean Corpuscular Volume 95.1 fl (80-100); Mean Platelet Volume 10.9 fl (7.4-10.4); Monocytes Absolute Auto 0.2 K/mm3 (0.1-0.6); Monocytes Percent Auto 9.7 % (2.6-8.5); Neutrophils Percent Auto 56.3 % (45.5-73.1); Platelet Count Result 70 k/mm3 (150-375); Red Blood Count 2.47 M/mm3 (4.6-6.20)
[2023-12-29 04:46] LABS: Alanine Aminotransferase 13 U/L (6-50); Albumin Level 3.3 g/dL (3.5-5.1); Alkaline Phosphatase 62 U/L (38-126); Anion Gap 10 mmol/L (4-12); Aspartate Amino Transferase 23 U/L (17-59); Bilirubin,Total 0.9 mg/dL (0.2-1.3); Blood Urea Nitrogen 37 mg/dL (9-20); Calcium 8.6 mg/dL (8.4-10.2); Carbon Dioxide 18 mmol/L (22-30); Chloride 105 mmol/L (98-107); Estimated CRCL calculation 37 ml/min; Estimated Glomerular Filt Rate 33; Glucose 109 mg/dL (65-110); Magnesium 2.7 mg/dL (1.6-2.3); Phosphorus 4.8 mg/dL (2.5-4.5); Potassium 4.2 mmol/L (3.4-5.0); Sodium 133 mmol/L (137-145)
[2023-12-29 05:02] LABS: Platelet Estimate Decreased (Adequate); White Blood Count 1.9 K/mm3 (4.5-10.0)
[2023-12-29 05:03] LABS: Anisocytosis 1+; Hypochromasia 1+; Ovalocytes 1+; Schistocytes Rare
[2023-12-29] MEDS: PROPRANOLOL HCL 60 MG CAPSULE CR 120 MG PO (08:43)
[2023-12-29] MEDS: PANTOPRAZOLE SODIUM IV 40 MG VIAL IV PUSH (08:44)
[2023-12-29] MEDS: DOXAZOSIN MESYLATE 4 MG TABLET 8 MG PO ×2 (08:44→17:22)
[2023-12-29] MEDS: AMOXICILLIN/CLAVULANATE K 875-125 MG TAB 1 TABLET PO ×2 (08:44→17:23)
[2023-12-29] MEDS: LACTATED RINGERS 1,000 ML 150 ML IV CONT (12:05)
--- NOTE | 2023-12-29 12:09 | WPDANESEPPF ---
Anes - Initial Pre Proc Eval Procedure: Operation Date: 12/29/23 12:00 Proposed Procedures p Esophagogastroduodenoscopy & Colonoscopy - Triston Jansen MD Date/Time: 12/29/23 12:09 Surgeon: Billy Ward MD Pre Op Diagnosis: post tooth extraction bleeding,anemia Patient Data Age: 73 Gender: M Height: 1.78 m Weight: 111.5 kg Last Vital Signs Temp 97.2 F L 12/29/23 12:02 Pulse 99 12/29/23 12:02 Resp 20 12/29/23 12:02 BP 128/68 12/29/23 12:02 Pulse Ox 100 12/29/23 12:02 O2 Del Method Room Air 12/29/23 12:02 FiO2 21 12/29/23 09:03 Allergies Allergy/AdvReac Type Severity Reaction Status Date / Time No Known Allergies Allergy Verified 12/29/23 12:01 Home Medications Medication Instructions Recorded Confirmed Type allopurinol 300 mg tablet 300 mg PO DAILY #90 tabs 01/16/23 12/28/23 Rx doxazosin 8 mg tablet 8 mg PO BID #180 tabs 01/16/23 12/28/23 Rx oxybutynin chloride 5 mg tablet 5 mg PO DAILY #90 tabs 01/16/23 12/28/23 Rx tamsulosin 0.4 mg capsule 0.4 mg PO BID #180 caps 01/16/23 12/28/23 Rx propranolol 120 mg capsule,24 120 mg PO DAILY #90 caps 02/07/23 12/28/23 Rx hr,extended release apixaban 5 mg tablet (Eliquis) 5 mg PO BID #180 tabs 03/18/23 12/28/23 Rx furosemide 40 mg tablet 40 mg PO DAILY 03/29/23 12/28/23 History ferrous sulfate 325 mg (65 mg 325 mg PO BID #180 tabs 10/11/23 12/28/23 Rx iron) tablet losartan 50 mg tablet 50 mg PO DAILY #90 tabs 10/24/23 12/28/23 Rx amoxicillin 875 mg-potassium 1 tablet PO BID 12/28/23 12/28/23 History clavulanate 125 mg tablet chlorhexidine gluconate 0.12 % 10 ml PO BID 04/24/24 04/24/24 History mouthwash Laboratory Tests 12/28/23 12/29/23 12/29/23 17:24 00:11 03:56 WBC 1.9 L* K/mm3 (4.5-10.0) RBC 2.47 L M/mm3 (4.6-6.20) Hgb 7.9 L g/dL 7.9 L g/dL 7.5 L g/dL (14.0-18.0) (14.0-18.0) (14.0-18.0) Hct 24.6 L % 24.7 L % 23.5 L % (42.0-52.0) (42.0-52.0) (42.0-52.0) MCV 95.1 fl (80-100) MCH 30.4 pg (26-34) MCHC 31.9 L g/dl (32-36) RDW 16.0 H % (11.5-14.5) Plt Count 70 L k/mm3 (150-375) MPV 10.9 H fl (7.4-10.4) Immature Gran % (Auto) 0.0 % (0-0.5) Neut % (Auto) 56.3 % (45.5-73.1) Lymph % (Auto) 29.7 % (18.3-44.2) [place] % (Auto) 9.7 H % (2.6-8.5) Eos % (Auto) 3.8 % (0-4.4) Baso % (Auto) 0.5 % (0.2-1.2) Lymph # (Auto) 0.55 L K/mm3 (0.9-3.2) [place] # (Auto) 0.2 K/mm3 (0.1-0.6) Eos # (Auto) 0.1 K/mm3 (0-0.3) Baso # (Auto) 0.0 K/mm3 (0.0-0.1) Abs Immat Gran (auto) 0.00 K/mm3 (0.00-0.031) Absolute Neuts (auto) 1.0 L K/mm3 (1.3-6.7) Absolute Nucleated RBC 0.000 K/mm3 (0.0-0.012) Nucleated RBC % 0.0 % (0.0-0.2) Platelet Estimate Decreased (Adequate) % Immature Plt Fraction 3.4 % (0.9-11.2) Hypochromasia 1+ Anisocytosis 1+ Ovalocytes 1+ Schistocytes Rare Sodium 133 L mmol/L (137-145) Potassium 4.2 mmol/L (3.4-5.0) Chloride 105 mmol/L (98-107) Carbon Dioxide 18 L mmol/L (22-30) Anion Gap 10 mmol/L (4-12) BUN 37 H mg/dL (9-20) Creatinine 2.00 H mg/dL (0.7-1.3) Estim Creat Clear Calc 37 ml/min Estimated GFR 33 L (59 - ) Glucose 109 mg/dL (65-110) Calcium 8.6 mg/dL (8.4-10.2) Phosphorus 4.8 H mg/dL (2.5-4.5) Magnesium 2.7 H mg/dL (1.6-2.3) Total Bilirubin 0.9 mg/dL (0.2-1.3) AST 23 U/L (17-59) ALT 13 U/L (6-50) Alkaline Phosphatase 62 U/L (38-126) Total Protein 6.0 L g/dL (6.3-8.2) Albumin 3.3 L g/dL (3.5-5.1) Patient hx anesthesia problems:
--- NOTE | 2023-12-29 13:02 | SUR.OPER ---
EGD START 1245, END 1247 COLONOSCOPY START 1252, END 1300
--- NOTE | 2023-12-29 13:03 | PM.IMPN ---
Progress Note: A&P Assessment and Plan (1) Hemorrhage of tooth socket: Code(s): K91.840 - Postprocedural hemorrhage of a digestive system organ or structure following a digestive system procedure Status: Acute Assessment and Plan: Patient presents with complaint of bleeding from his dental extraction site. He had his teeth pulled on Tuesday (12/22). He had stopped his blood thinner which include apixaban on Tuesday but resumed post-procedure. Bleeding is slowing. Should resolve in time. Continue Abx and oral rinse. Monitor. (2) Acute on chronic blood loss anemia: Code(s): D62 - Acute posthemorrhagic anemia Status: Acute Assessment and Plan: Hgb 10.1 last month. In the ED, his Hgb was down to 7.4. He was noted to have continued bleeding from the tooth socket. He received Kcentra in the ER for reversal of apixaban due to ongoing bleeding and given a total of 3 unit of PRBCs. Iron studies okay (possibly anemia of chronic disease). B12/folate normal. Hgb 6.9 yesterday morning but repeat levels in the 7 range and stable Follow HH and transfuse as needed. (3) Hematochezia: Code(s): K92.1 - Melena Status: Acute Assessment and Plan: Patient also having hematochezia. He had EGD and colonoscopy in Apr 2023 s/p polypectomies but showing no evidence of bleeding. He did have multiple medium sized internal hemorrhoids. SBFT in April 2023 was normal. Colonoscopy and EGD for today. Appreciate GI input EGD normal so okay to stop PPI. [place] results pending (4) Pancytopenia: Code(s): D61.818 - Other pancytopenia Status: Acute Assessment and Plan: Patient with known pancytopenia. Etiology unclear. BM bx in April showed no acute findings to explain the pancytopenia. He actually had hypercellular BM for age but no significant dyspoiesis. So more of a peripheral destructive disease. Plt was down to 65K and WBC 1900; Pancytopenia can worsen in the face of acute blood loss Abd US result noted with cholelithiasis and likely benign 5mm GB polyp. Spleen not enlarged. Levels stable. Continue to monitor (5) Atrial fibrillation: Code(s): I48.91 - Unspecified atrial fibrillation Status: Chronic Assessment and Plan: Rate mostly well controlled. BP stable Eliquis held. Continue Inderal. Monitor on tele (6) Gastro-esophageal reflux disease without esophagitis: Code(s): K21.9 - Gastro-esophageal reflux disease without esophagitis Status: Acute Assessment and Plan: As above (7) Chronic kidney disease, stage 3a: Code(s): N18.31 - Chronic kidney disease, stage 3a Status: Acute Assessment and Plan: Cr with wide range (as high as 3.4 last year) but baseline likely 1.8-2.2 range. Cr within baseline so monitor for now (8) Atherosclerotic heart disease of [place] coronary artery without angina pectoris: Code(s): I25.10 - Atherosclerotic heart disease of [place] coronary artery without angina pectoris Status: Acute Assessment and Plan: Stable. Review and resume home medications (9) Chronic diastolic (congestive) heart failure: Code(s): I50.32 - Chronic diastolic (congestive) heart failure Status: Acute Assessment and Plan: Increased portal venous pulsatility probably from fluid overload. He did receive 3U PRBC but no Lasix. Pedal edema noted. Not on his home Lasix here. He was gven one dose of lasix yesterday with good UOP. Plan for IV Lasix now that he is done with his bowel prep Plan DVT prophylaxis - SCDs Code status - full Subjective Date/time seen: 12/29/23 13:03 Interval history: 73yo male with AFib on Eliquis, dCHF and CAD s/p CABG here for mouth bleeding and hematochezia. Was up and down all night due to bowel prep. Noticing decreased pedal edeam. No CP or SOB. +BARRIENTOS when up to the bedside commode Exam Narrative: AF 97.2 128/68 99 20
[2023-12-29] MEDS: allopurinoL 300 MG TABLET PO ×2 (16:16→16:24)
[2023-12-29] MEDS: oxyBUTYnin CHLORIDE 5 MG TABLET PO ×2 (16:16→16:25)
[2023-12-29] MEDS: CHLORHEXIDINE GLUCONATE 0.12% ORAL RINSE 473 ML BTL (*BKC) 10 ML SWISH/SPIT ×2 (16:17→17:22)
[2023-12-29] MEDS: TAMSULOSIN HCL 0.4 MG CAPSULE PO (16:24)
[2023-12-29] MEDS: FERROUS SULFATE 325 MG TABLET DR PO (16:25)
[2023-12-29] MEDS: FUROSEMIDE INJ 40 MG/4 ML VIAL IV PUSH (18:22)
[2023-12-30] VITALS (18 sets, daily range): BP systolic 107–134; BP diastolic 46–64; PULSE 67–102; RESP 18–22; TEMP 35.6–36.8; O2SAT 96–100
[2023-12-30 04:42] LABS: Eosinophils Absolute Auto 0.1 K/mm3 (0-0.3); Eosinophils Percent Auto 3.4 % (0-4.4); Hematocrit 22.1 % (42.0-52.0); Immature Granulocyte Absolute 0.01 K/mm3 (0.00-0.031); Immature Granulocyte Percent A 0.7 % (0-0.5); Immature Platelet Fraction Pct 2.6 % (0.9-11.2); Lymphocytes Absolute Auto 0.45 K/mm3 (0.9-3.2); Lymphocytes Percent Auto 30.2 % (18.3-44.2); Mean Corpuscular HGB Conc 31.7 g/dl (32-36); Mean Corpuscular Hemoglobin 30.7 pg (26-34); Mean Corpuscular Volume 96.9 fl (80-100); Monocytes Absolute Auto 0.1 K/mm3 (0.1-0.6); Monocytes Percent Auto 9.4 % (2.6-8.5); Neutrophils Absolute Auto 0.8 K/mm3 (1.3-6.7); Neutrophils Percent Auto 56.3 % (45.5-73.1); Platelet Count Result 72 k/mm3 (150-375); Red Blood Count 2.28 M/mm3 (4.6-6.20); Red Cell Distribution Width 16.1 % (11.5-14.5)
[2023-12-30 04:54] LABS: Anion Gap 3 mmol/L (4-12); Blood Urea Nitrogen 29 mg/dL (9-20); Calcium 8.1 mg/dL (8.4-10.2); Carbon Dioxide 24 mmol/L (22-30); Chloride 108 mmol/L (98-107); Estimated CRCL calculation 37 ml/min; Estimated Glomerular Filt Rate 33; Glucose 94 mg/dL (65-110); Potassium 4.1 mmol/L (3.4-5.0); Sodium 135 mmol/L (137-145)
[2023-12-30 05:30] LABS: White Blood Count 1.5 K/mm3 (4.5-10.0)
[2023-12-30 05:31] LABS: Platelet Estimate Decreased (Adequate)
[2023-12-30 05:32] LABS: Anisocytosis 2+; Hypochromasia 1+; Ovalocytes 1+; Schistocytes None Seen
--- NOTE | 2023-12-30 07:22 | P.PNAN_ITS ---
Anes - Prog Note Post-Op Date/Time: 12/30/23 07:22 Cardiovascular status: other Respiratory status: other Airway patency: baseline Mental status: other Post-Op hydration status: other (anemic ) Vital Signs: Last Vital Signs Temp 97.6 F 12/30/23 04:58 Pulse 77 12/30/23 06:00 Resp 20 12/30/23 04:58 BP 111/57 L 12/30/23 04:58 Pulse Ox 98 12/30/23 04:58 O2 Del Method Room Air 12/30/23 04:00 O2 Flow Rate 2 12/29/23 13:10 FiO2 21 12/29/23 09:03 Pain Score (VAS): 0/10 I/O: Intake & Output 12/29/23 12/29/23 12/30/23 15:59 23:59 07:59 Intake Total 0 920 550 Output Total 776 200 Balance 0 144 350 Laboratory Tests 12/30/23 04:22 12/30/23 04:22 12/30/23 04:22 WBC 1.5 L* RBC 2.28 L Hgb 7.0 L* Hct 22.1 L MCV 96.9 MCH 30.7 MCHC 31.7 L RDW 16.1 H Plt Count 72 L MPV 10.0 Immature Gran % (Auto) 0.7 H Neut % (Auto) 56.3 Lymph % (Auto) 30.2 [place] % (Auto) 9.4 H Eos % (Auto) 3.4 Baso % (Auto) 0.0 L Lymph # (Auto) 0.45 L [place] # (Auto) 0.1 Eos # (Auto) 0.1 Baso # (Auto) 0.0 Abs Immat Gran (auto) 0.01 Absolute Neuts (auto) 0.8 L Absolute Nucleated RBC 0.000 Nucleated RBC % 0.0 Platelet Estimate Decreased % Immature Plt Fraction 2.6 Hypochromasia 1+ Anisocytosis 2+ Ovalocytes 1+ Schistocytes None seen Sodium 135 L Potassium 4.1 Chloride 108 H Carbon Dioxide 24 Anion Gap 3 L BUN 29 H Creatinine 2.00 H Estim Creat Clear Calc 37 Estimated GFR 33 L Glucose 94 Calcium 8.1 L Patient Feedback: Patient satisfied with anesthetic care.
[2023-12-30] MEDS: AMOXICILLIN/CLAVULANATE K 875-125 MG TAB 1 TABLET PO (09:00)
[2023-12-30] MEDS: DOXAZOSIN MESYLATE 4 MG TABLET 8 MG PO (09:15)
[2023-12-30] MEDS: PROPRANOLOL HCL 60 MG CAPSULE CR 120 MG PO (09:15)
[2023-12-30] MEDS: TAMSULOSIN HCL 0.4 MG CAPSULE PO (09:16)
[2023-12-30] MEDS: allopurinoL 300 MG TABLET PO (09:16)
[2023-12-30] MEDS: FUROSEMIDE INJ 40 MG/4 ML VIAL IV PUSH (09:27)
[2023-12-30] MEDS: PANTOPRAZOLE SODIUM IV 40 MG VIAL IV PUSH (09:27)
[2023-12-30] MEDS: CHLORHEXIDINE GLUCONATE 0.12% ORAL RINSE 473 ML BTL (*BKC) 10 ML SWISH/SPIT (09:28)
[2023-12-30] MEDS: FERROUS SULFATE 325 MG TABLET DR PO (09:28)
[2023-12-30 12:38] LABS: Hematocrit 24.1 % (42.0-52.0); Hemoglobin 7.6 g/dL (14.0-18.0)
--- NOTE | 2023-12-30 15:22 | PM.DS ---
DS: Admitting Diagnosis Discharge Date 12/30/23 Admitting Diagnosis Mouth bleeding, hematochezia DS: Discharge Diagnosis Discharge Diagnosis (1) Hemorrhage of tooth socket: Code(s): K91.840 - Postprocedural hemorrhage of a digestive system organ or structure following a digestive system procedure Status: Acute (2) Acute on chronic blood loss anemia: Code(s): D62 - Acute posthemorrhagic anemia Status: Acute (3) Hematochezia: Code(s): K92.1 - Melena Status: Acute (4) Pancytopenia: Code(s): D61.818 - Other pancytopenia Status: Acute (5) Atrial fibrillation: Code(s): I48.91 - Unspecified atrial fibrillation Status: Chronic (6) Gastro-esophageal reflux disease without esophagitis: Code(s): K21.9 - Gastro-esophageal reflux disease without esophagitis Status: Acute (7) Chronic kidney disease, stage 3a: Code(s): N18.31 - Chronic kidney disease, stage 3a Status: Acute (8) Atherosclerotic heart disease of solomon coronary artery without angina pectoris: Code(s): I25.10 - Atherosclerotic heart disease of solomon coronary artery without angina pectoris Status: Acute (9) Chronic diastolic (congestive) heart failure: Code(s): I50.32 - Chronic diastolic (congestive) heart failure Status: Acute DS: Summary Hospital Course Reason for hospitalization: 73yo male with AFib on Eliquis, dCHF and CAD s/p CABG here for mouth bleeding and hematochezia. Please see H&P for details. Hospital Course: Patient presents with complaint of bleeding from his dental extraction site.? He had his teeth pulled on Tuesday (12/22). He had stopped his apixaban but resumed post-procedure. We continued his scheduled Abx and oral rinse. Bleeding has stopped now. Hgb 10.1 last month. In the ED, his Hgb was down to 7.4.? He was noted to have continued bleeding from the tooth socket.?He received Kcentra in the ER for reversal of apixaban due to ongoing bleeding and given a total of 3 unit of PRBCs. Iron studies okay (possibly anemia of chronic disease). B12/folate normal. Hgb climbed to the 7 range and remained stable. Patient was also having hematochezia. He had EGD and colonoscopy in Apr 2023 s/p polypectomies but showing no evidence of bleeding. He did have multiple medium sized internal hemorrhoids.? SBFT in April 2023 was normal. GI was consulted. Patient underwent Colonoscopy showing EGD normal so okay to stop PPI. Colonoscopy showing single 4mm polyp that was removed with cold snare. A few small inernal hemorrhoids that were not bleeding. Patient with known pancytopenia. Etiology unclear. BM bx in April showed no acute findings to explain the pancytopenia. He actually had hypercellular BM for age but no significant dyspoiesis. Plt was down to 65K and WBC 1900; Pancytopenia can worsen in the face of acute blood loss. Abd US result noted with cholelithiasis and likely benign 5mm GB polyp. Spleen not enlarged. Platelet and WBC levels remained stable. Patient with AFib on Eliquis. We continued his Inderal and his rate mostly well controlled. Cr with wide range (as high as 3.4 last year) but baseline likely 1.8-2.2 range. Cr within baseline here. Patient had increased portal venous pulsatility probably from fluid overload. He did receive 3U PRBC but no Lasix. Pedal edema noted so started on IV Lasix here with good results and clincal improvement. Spoke with GI who felt patient could go back on his Eliquis at discharge since oral bleeding has stopped and no concerns for GI blood loss. He overall did well and was able to be discharged home on 12/30/23 Status at Discharge Cognitive/behavioral status at discharge: stable Time Spent with Patient Time attestation: Total time spent providing and/or coordinating discharge services: 35 minutes Time spent: Greater than 30 minutes Exam Narrative: AF 97.2 134/46 71 22 98% ra Gen - NARD Chest - CTA bilateral
[2023-12-30] MEDS: SODIUM CHLORIDE 0.9% IV 250 ML 30 ML IV CONT (16:40)
== END 2023-12-30 18:15 | disposition home or self-care (01) | DRG 920 ==
LOC: ANHED 06:20 → ANHIMU 06:35
PROVIDERS: Internal Medicine; Internal Medicine Gastroenterology; Nurse Practitioner; Admitting Provider Internal Medicine; Emergency Provider Emergency Medicine; PCP Family Medicine Adolescent Medicine; Visit Provider Internal Medicine
PROC: 0DJ08ZZ Inspection of Upper Intestinal Tract, Via Natural or Artificial Opening Endoscopic (ICD-10-PCS; CPT 43235; principal; 2023-12-29 12:00)
DX: K91.840 Postprocedural hemorrhage of a digestive system organ or structure following a digestive system procedure (principal); D61.818 Other pancytopenia; D62 Acute posthemorrhagic anemia; I48.20 Chronic atrial fibrillation, unspecified; I50.32 Chronic diastolic (congestive) heart failure; K92.1 Melena; N18.31 Chronic kidney disease, stage 3a; I27.20 Pulmonary hypertension, unspecified; I25.10 Atherosclerotic heart disease of native coronary artery without angina pectoris; I70.0 Atherosclerosis of aorta; K63.5 Polyp of colon; D50.9 Iron deficiency anemia, unspecified; E78.5 Hyperlipidemia, unspecified; E53.8 Deficiency of other specified B group vitamins; N40.0 Benign prostatic hyperplasia without lower urinary tract symptoms; K21.9 Gastro-esophageal reflux disease without esophagitis; G25.0 Essential tremor; Z96.651 Presence of right artificial knee joint; Z79.01 Long term (current) use of anticoagulants; Z95.1 Presence of aortocoronary bypass graft
CPT/HCPCS: 36415; 36430; 76705; 80048; 80053; 82607; 82728; 82746; 82948; 83540; 83550; 83735; 84100; 85014; 85018; 85025; 85055; 85610; 86850; 86900; 86901; 86920; 88305; 99285; A4248; A9270; C9113; G0378; J1940; J2371; J7050; J7120; P9016

== ENCOUNTER 2024-01-25 14:12 | Outpatient (CLI) | payer MEDICARE, SELFPAY ==
[2024-01-25 14:49] LABS: Basophils Percent Auto 0.6 % (0.2-1.2); Eosinophils Absolute Auto 0.1 K/mm3 (0-0.3); Eosinophils Percent Auto 4.8 % (0-4.4); Hemoglobin 9.2 g/dL (14.0-18.0); Immature Granulocyte Absolute 0.01 K/mm3 (0.00-0.031); Immature Granulocyte Percent A 0.6 % (0-0.5); Lymphocytes Absolute Auto 0.45 K/mm3 (0.9-3.2); Lymphocytes Percent Auto 26.8 % (18.3-44.2); Mean Corpuscular HGB Conc 30.7 g/dl (32-36); Mean Corpuscular Hemoglobin 29.3 pg (26-34); Mean Corpuscular Volume 95.5 fl (80-100); Mean Platelet Volume 10.2 fl (7.4-10.4); Monocytes Absolute Auto 0.2 K/mm3 (0.1-0.6); Monocytes Percent Auto 9.5 % (2.6-8.5); Neutrophils Percent Auto 57.7 % (45.5-73.1); Platelet Count Result 97 k/mm3 (150-375); Red Blood Count 3.14 M/mm3 (4.6-6.20); Red Cell Distribution Width 15.8 % (11.5-14.5)
[2024-01-25 14:50] LABS: White Blood Count 1.7 K/mm3 (4.5-10.0)
[2024-01-25 17:14] LABS: Iron 36 ug/dL (49-181)
[2024-01-25 17:27] LABS: Percent Iron Saturation 12 % (20-50)
[2024-01-25 17:29] LABS: Anion Gap 8 mmol/L (4-12); Blood Urea Nitrogen 31 mg/dL (9-20); Calcium 8.7 mg/dL (8.4-10.2); Carbon Dioxide 23 mmol/L (22-30); Chloride 106 mmol/L (98-107); Estimated Glomerular Filt Rate 35; Glucose 99 mg/dL (65-110); Potassium 4.8 mmol/L (3.4-5.0); Sodium 137 mmol/L (137-145)
[2024-01-31 23:18] LABS: BCR/abl P190 NOT DETECTED; BCR/abl P210 NOT DETECTED; BCR/abl Source NG
== END 2024-01-25 14:13 | disposition home or self-care (01) ==
LOC: ANHLAB 14:16
PROVIDERS: PCP Family Medicine Adolescent Medicine; Visit Provider Internal Medicine Hematology & Oncology
DX: D64.9 Anemia, unspecified (principal); R16.1 Splenomegaly, not elsewhere classified
CPT/HCPCS: 36415; 80048; 82728; 83540; 83550; 85025

== ENCOUNTER 2024-05-08 14:14 | Outpatient (CLI) | payer MEDICARE, SELFPAY ==
[2024-05-08 14:25] LABS: Basophils Percent Auto 0.6 % (0.2-1.2); Eosinophils Absolute Auto 0.1 K/mm3 (0-0.3); Eosinophils Percent Auto 5.6 % (0-4.4); Hematocrit 33.5 % (42.0-52.0); Hemoglobin 10.2 g/dL (14.0-18.0); Lymphocytes Absolute Auto 0.45 K/mm3 (0.9-3.2); Lymphocytes Percent Auto 25.3 % (18.3-44.2); Mean Corpuscular HGB Conc 30.4 g/dl (32-36); Mean Corpuscular Hemoglobin 26.7 pg (26-34); Mean Corpuscular Volume 87.7 fl (80-100); Mean Platelet Volume 9.4 fl (7.4-10.4); Monocytes Absolute Auto 0.2 K/mm3 (0.1-0.6); Monocytes Percent Auto 10.1 % (2.6-8.5); Neutrophils Percent Auto 58.4 % (45.5-73.1); Platelet Count Result 83 k/mm3 (150-375); Red Blood Count 3.82 M/mm3 (4.6-6.20); Red Cell Distribution Width 16.3 % (11.5-14.5)
[2024-05-08 14:26] LABS: White Blood Count 1.8 K/mm3 (4.5-10.0)
[2024-05-08 16:43] LABS: Alanine Aminotransferase 17 U/L (6-50); Alkaline Phosphatase 61 U/L (38-126); Anion Gap 10 mmol/L (4-12); Aspartate Amino Transferase 25 U/L (17-59); Bilirubin,Total 0.7 mg/dL (0.2-1.3); Blood Urea Nitrogen 35 mg/dL (9-20); Calcium 8.9 mg/dL (8.4-10.2); Carbon Dioxide 26 mmol/L (22-30); Chloride 102 mmol/L (98-107); Estimated Glomerular Filt Rate 35; Glucose 102 mg/dL (65-110); Potassium 4.5 mmol/L (3.4-5.0); Sodium 138 mmol/L (137-145)
== END 2024-05-08 14:15 | disposition home or self-care (01) ==
PROVIDERS: PCP Family Medicine Adolescent Medicine; Visit Provider Internal Medicine Hematology & Oncology
DX: R16.1 Splenomegaly, not elsewhere classified (principal)
CPT/HCPCS: 36415; 80053; 85025

== ENCOUNTER 2024-06-04 10:26 | Outpatient (CLI) | payer MEDICARE, SELFPAY ==
[2024-06-04 10:50] LABS: Basophils Percent Auto 0.6 % (0.2-1.2); Eosinophils Absolute Auto 0.1 K/mm3 (0-0.3); Eosinophils Percent Auto 4.1 % (0-4.4); Hematocrit 31.4 % (42.0-52.0); Hemoglobin 9.8 g/dL (14.0-18.0); Lymphocytes Absolute Auto 0.42 K/mm3 (0.9-3.2); Lymphocytes Percent Auto 24.7 % (18.3-44.2); Mean Corpuscular HGB Conc 31.2 g/dl (32-36); Mean Corpuscular Hemoglobin 27.1 pg (26-34); Mean Platelet Volume 9.4 fl (7.4-10.4); Monocytes Absolute Auto 0.2 K/mm3 (0.1-0.6); Monocytes Percent Auto 11.2 % (2.6-8.5); Neutrophils Percent Auto 59.4 % (45.5-73.1); Platelet Count Result 79 k/mm3 (150-375); Red Blood Count 3.61 M/mm3 (4.6-6.20); Red Cell Distribution Width 17.2 % (11.5-14.5)
[2024-06-04 10:51] LABS: White Blood Count 1.7 K/mm3 (4.5-10.0)
[2024-06-04 10:55] LABS: Blood Urea Nitrogen 32 mg/dL (8-26); Carbon Dioxide 22 mmol/L (22-30); Chloride 105 mmol/L (98-109); Estimated Glomerular Filt Rate 31; Glucose 106 mg/dL (70-105); Ionized Calcium (POC) 1.17 mmol/L (1.11-1.31); Potassium 4.7 mmol/L (3.5-4.9); Sodium 139 mmol/L (138-146)
[2024-06-04 12:05] LABS: Alanine Aminotransferase 16 U/L (6-50); Alkaline Phosphatase 59 U/L (38-126); Anion Gap 9 mmol/L (4-12); Aspartate Amino Transferase 30 U/L (17-59); Bilirubin,Total 0.7 mg/dL (0.2-1.3); Blood Urea Nitrogen 35 mg/dL (9-20); Calcium 8.9 mg/dL (8.4-10.2); Carbon Dioxide 23 mmol/L (22-30); Chloride 106 mmol/L (98-107); Estimated Glomerular Filt Rate 39; Glucose 106 mg/dL (65-110); Potassium 4.8 mmol/L (3.4-5.0); Sodium 138 mmol/L (137-145)
== END 2024-06-04 10:27 | disposition home or self-care (01) ==
PROVIDERS: PCP Family Medicine Adolescent Medicine; Visit Provider Internal Medicine Hematology & Oncology
DX: R16.1 Splenomegaly, not elsewhere classified (principal)
CPT/HCPCS: 36415; 80047; 80053; 85025

== ENCOUNTER 2024-11-19 10:56 | Outpatient (CLI) | payer MEDICARE, SELFPAY ==
[2024-11-19 11:13] LABS: Basophils Percent Auto 0.8 % (0.2-1.2); Eosinophils Absolute Auto 0.1 K/mm3 (0-0.3); Eosinophils Percent Auto 2.4 % (0-4.4); Hematocrit 30.8 % (42.0-52.0); Hemoglobin 9.4 g/dL (14.0-18.0); Immature Granulocyte Absolute 0.01 K/mm3 (0.00-0.031); Immature Granulocyte Percent A 0.4 % (0-0.5); Lymphocytes Absolute Auto 0.42 K/mm3 (0.9-3.2); Mean Corpuscular HGB Conc 30.5 g/dl (32-36); Mean Corpuscular Hemoglobin 27.2 pg (26-34); Mean Platelet Volume 8.9 fl (7.4-10.4); Monocytes Absolute Auto 0.2 K/mm3 (0.1-0.6); Monocytes Percent Auto 9.7 % (2.6-8.5); Neutrophils Absolute Auto 1.7 K/mm3 (1.3-6.7); Neutrophils Percent Auto 69.7 % (45.5-73.1); Platelet Count Result 95 k/mm3 (150-375); Red Blood Count 3.46 M/mm3 (4.6-6.20); Red Cell Distribution Width 16.1 % (11.5-14.5); White Blood Count 2.5 K/mm3 (4.5-10.0)
[2024-11-19 12:02] LABS: Anion Gap 11 mmol/L (4-12); Blood Urea Nitrogen 30 mg/dL (9-20); Calcium 8.7 mg/dL (8.4-10.2); Carbon Dioxide 22 mmol/L (22-30); Chloride 104 mmol/L (98-107); Estimated Glomerular Filt Rate 41; Glucose 98 mg/dL (65-110); Potassium 4.8 mmol/L (3.4-5.0); Sodium 137 mmol/L (137-145)
[2024-11-19 12:05] LABS: Iron 51 ug/dL (49-181)
[2024-11-19 12:16] LABS: Percent Iron Saturation 17 % (20-50)
[2024-11-19 13:10] LABS: Folic Acid > 20.0 ng/mL (2.76->20); Vitamin B12 > 1000.0 pg/mL (239-931)
--- OUTSIDE RECORDS SUMMARY | 2024-11-19 13:28 | XMS_ITS | Encounter Summary ---
Author Organization [facility] Address [address] [place] [address] Care Team Providers Care English Composition Teacher Name Role Phone Leon Taylor MD Primary Care Provider + Encounter Details Date Type Department Care Team (Late st Contact Info) Description 05/05/2023 Lab Requisition [facility] - Pathology Lab [address] [place] [id number] Dorian Flynn MD [address] [address] Anemia, unspecified Social History Tobacco Use Types Packs/Day Years Used Date Smoking Tobacco: Never Assessed Sex and Gender Information Value Date Recorded Sex Assigned at Not on file Gender Identity Not on file Sexual Orientation Not on file documented as of this encounter Plan of Treatment Not on file documented as of this encounter Procedures Procedure Name Priority Date/Time Associated Diagnosis Comments FLOW CYTOMETRY BONE MARROW Routine 05/05/2023 9:15 AM CDT Anemia, unspecified documented in this encounter Results * FLOW CYTOMETRY BONE MARROW (05/05/2023 9:15 AM CDT) Case Report Flow Cytometry Case: [id number] Authorizing Provider: Dorian Flynn MD Collected: 05/05/2023 09:15 AM Ordering Location: [facility] Pathology Lab Received: 05/05/2023 01:34 PM Pathologist: Munir Espinoza MD Specimen: Bone Marrow 05/05/2023 4:54 PM CDT U PATHOLOGY LAB Final Diagnosis Bone marrow, flow cytometric immunophenotypic analysis: - No evidence of non-Hodgkin lymphoma or high-grade myeloid neoplasm. - See interpretation. Correlation with clinical findings, corresponding bone marrow biopsy, cytogenetic/molecu lar studies is required. 05/05/2023 4:54 PM [facility] Flow Cytometry Interpretation Viability: 90% - Lymphocytes (17% of events) B-cells (5% of lymphocyes): polytypic, kappa:lambda ratio 1.6:1 T-cells (85% of lymphocytes): no immunophenotypic aberrancy detected - dimCD45 gate (5% of events) 2.3% of CD34 + blasts detected, express CD33 and CD13 with loss prevention manager maturation. Plasma cells: polytypic, kappa:lambda ratio 1.5:1 no immunophenotypic aberrancy detected MRD sent: no A bone marrow aspirate smear prepared from the flow cytometry specimen has been reviewed for auditor/quality purposes. 05/05/2023 4:54 PM [facility] Flow Cytometry Results Differential Result Comment Flow Cell Count /uL 36,800 Total Viability % 90.0 Lymphocytes % 17 Dim CD45 Region % 5 Monocytes % 8 Granulocytes % 69 05/05/2023 4:54 PM [facility] Reason for test Anemia, unspecified 285.9 05/05/2023 4:54 PM [facility] Client Specimen ID # [id number] 05/05/2023 4:54 PM [facility] Number of markers 14 were performed. A-2 Flow CD10 A-3 Flow CD13 A-5 Flow CD20 A-13 Flow CD117 A-14 FLOW CD138 A-1 Flow CD5 A-4 Flow CD19 A-6 Flow CD33 A-7 Flow CD34 A-8 Flow CD45 A-11 Flow CD38 A-12 Flow CD56 A-9 [place]+CD19+ A-10 Lambda+CD19+ 05/05/2023 4:54 PM [facility] Pathologist Location at [facility] 05/05/2023 4:54 PM [facility] Disclaimer Test performed at [facility], [address] [place] [address], [id number]. *The established laboratory minimum viability is 70%. Values below the minimum may result in the failure to find an abnormal population of cells. This test was developed and its performance characteristics determined by the Flow Cytometry Laboratory. It has not been cleared by the [place] Food and Drug Administration (FDA). The FDA has determined that such clearance or approval is not necessary. This test is used for clinical purposes. It should not be regarded as investigational or for research. This laboratory is regulated under the Clinical Laboratory Improvement Amendments of 1998 (CLIA) as a qualified to perform high complexity clinical testing. 05/05/2023 4:54 PM CDT [facility] PATH[facility] Embedded Images 4:54 PM CDT [facility] PATH[facility] Pathology/Cytolo gy BONE MARROW SPECIMEN / Unknown 05/05/2023 9:15 AM CDT 05/05/2023 1:34 PM CDT Dorian Flynn MD LAB - PATHOLOGY/CYTO LOGY ORDERABLES Performing Organization Address City/State/[facility] Co de Phone Number [facility] PATH[facility] [address] [phone] documented in this encounter Visit Diagnoses Diagnosis Anemia, unspecified documented in this encounter Care Teams English Composition Teacher Relationship Specialty Start Date End Date Leon Taylor MD [address] [address] PCP - General 02/28/19 documented as of this encounter
--- OUTSIDE RECORDS SUMMARY | 2024-11-19 13:28 | XMS_ITS | Clinical Summary ---
Author Organization [facility] Address [address] [facility] [place] [address] Care Team Providers Care Manager Servicing Name Role Phone Leon Taylor MD Primary Care Provider + Source Comments [facility],non-owned Affiliates and Associated Physician Practices is amultiple site organization consisting of ambulatory clinics and hospital sitesin [place], [place], [place] and [place]. This disclosure is being madepursuant to the Care Everywhere program and may not contain all information available regarding this patient. Last updated 18.[facility] [employer] Social History Tobacco Use Types Packs/Day Years Used Date Smoking Tobacco: Never Assessed Sex and Gender Information Value Date Recorded Sex Assigned at Not on file Gender Identity Not on file Sexual Orientation Not on file Plan of Treatment Health Maintenance Due Date Last Done Comments COLOGUARD (AGES 45-75) - COL ON CA SCREENING 1949 COLON MONITORING 1949 COLONOSCOPY - COLON CA SCREENING 1949 CT COLONOGRAPHY - COLON CA SCREENING 1950 Colorectal Cancer Screening 1949 FIT - COLON CA SCREENING 1949 FLEX SIG - COLON CA SCREENING 1949 LIPID TESTING 1949 MEDICARE AWV 12 MONTHS 1949 HEPATITIS C SCREENING 04/20/1967 DTAP/TDAP/TD VACCINES (1 - Tdap) 1968 PNEUMOCOCCAL VACCINE 50+ (1 of 1 - PCV) 1999 ZOSTER VACCINE (1 of 2) 1999 Respiratory Syncytial Virus (RSV) Vaccine Pt: or over 60 yrs (1 - 1-dose 75+ series) 2024 COVID-19 VACCINE ( - 2023-2 5 season) 2024 INFLUENZA VACCINE (#1) 2024 DEPRESSION SCREENING 09/05/2024 HEPATITIS B VACCINE Aged Out No longe r eligible based on patient's age to complete this topic HIB VACCINE Aged Out No longer eligi ble based on patient's age to complete this topic HPV VACCINE Aged Out No longer eligi ble based on patient's age to complete this topic MENINGOCOCCAL (Group B) VACC INE SHARED DECISION-MAKING Aged Out No longer eligibl e based on patient's age to complete this topic MENINGOCOCCAL GROUPS A/C/Y/W VACCINE Aged Out No longer eligible b ased on patient's age to complete this topic Care Teams Manager Servicing Relationship Specialty Start Date End Date Leon Taylor MD [address] [address] [facility] - General 02/28/19
--- OUTSIDE RECORDS SUMMARY | 2024-11-19 13:28 | XMS_ITS | Encounter Summary ---
Author Organization [facility] Address [address] [place] [address] Care Team Providers Care Double Bottom Driver Name Role Phone Leon Taylor MD Primary Care Provider + Encounter Details Date Type Department Care Team (Late st Contact Info) Description 05/10/2023 Lab Requisition [facility] - Pathology Lab [address] [place] [phone] Dorian Flynn MD [address] [address] Illness, unspecified Social History Tobacco Use Types Packs/Day Years Used Date Smoking Tobacco: Never Assessed Sex and Gender Information Value Date Recorded Sex Assigned at Not on file Gender Identity Not on file Sexual Orientation Not on file documented as of this encounter Plan of Treatment Not on file documented as of this encounter Procedures Procedure Name Priority Date/Time Associated Diagnosis Comments BONE MARROW BIOPSY (STL) Routine 05/05/2023 9:15 AM CDT Illness, unspecified documented in this encounter Results * BONE MARROW BIOPSY (STL) (05/05/2023 9:15 AM CDT) Case Report Bone Marrow Patholog y Report Case: [id number] Authorizing Provider: Dorian Flynn MD Collected: 05/05/2023 09:15 AM Ordering Location: [facility] Care Pathology Lab Received: 05/10/2023 09:44 AM Pathologist: Liliana Jackson MD Specimens: A) - Bone Marrow Clot B) - Bone Marrow Core, Right posterior hip 05/10/2023 5:09 PM CDT U PATHOLOGY LAB Final Diagnosis Bone marrow, aspirate, clot section, and core biopsy: - Hypercellular bone marrow for age (50% cellularity) - Trilineage hematopoiesis with no significant dyspoiesis - Decreased iron storage Peripheral blood smear: - Pancytopenia 05/10/2023 5:09 PM [facility] PATH[facility] Comment Correlation with clinical findings, imaging and cytogenetic/molecular testing is required. 05/10/2023 5:09 PM [facility] Peripheral Smear Description RBC: normocytic and hypochromic anemia WBC: marked leukopenia with absolute lymphopenia, no circulating blasts seen Platelets: decreased in number 05/10/2023 5:09 PM [facility] Bone Marrow Aspirate Specimen quality: adequate Spicules: present Trilineage Hematopoiesis: present Myeloid:Erythroid ratio: normal Myeloid Maturation: normal Erythroid Maturation: normal Megakaryocyte morphology:normal Storage iron (by special stain): decreased Sideroblastic iron (by special stain): absent 05/10/2023 5:09 PM [facility] Bone Marrow Core Biopsy and Clot Section Description Specimen quality:adequate, intact core Cellularity: 50 % Trilineage Hematopoiesis: present Myeloid to Erythroid ratio: normal Myeloid maturation and localization:normal Erythroid maturation and localization: normal Megakaryocyte number: normal Megakaryocyte distribution: normal Lymphoid aggregates: absent Bone trabeculae: present Plasma cells: present Clot section marrow particles: rare present Clot section morphology: similar to core Storage iron (by special stain): decreased Sideroblastic iron (by special stain): absent 05/10/2023 5:09 PM [facility] Flow Cytometry Summary Bone marrow, flow cytometric immunophenotypic analysis ([id number]): - No evidence of non-Hodgkin lymphoma or high-grade myeloid neoplasm. 05/10/2023 5:09 PM [facility] Clinical History 73 year-old male with pancytopenia. 05/10/2023 5:09 PM [facility] Pathologist Location at [facility] 05/10/2023 5:09 PM [facility] Disclaimer The performance characteristics of all immunohistochemical and indirect immunofluorescence stains (if any) cited in this report were determined by the Histopathology Laboratory of [facility]. Some of these tests were developed by our own laboratory and have not been cleared or approved by the [place] Food and Drug Administration. The FDA does not require this test to go through premarket FDA review. These tests are used for clinical purposes. They should not be regarded as investigational or for research. This laboratory is certified under the Clinical Laboratory Improvement Amendments (CLIA) as qualified to perform high complexity clinical laboratory testing. This case has been personally reviewed and interpreted by the attending (teaching) pathologist. 05/10/2023 5:09 PM CDT [facility] PATHOLOG[facility] Embedded Images 05/10/2023 5:09 PM CDT [facility] PATH[facility] Pathology/Cytology BONE MARROW SPECIMEN / Unknown 05/05/2023 9:15 AM CDT 05/10/2023 9:44 AM CDT Miscellaneous samples (specimen) BONE MARROW SPECIMEN / Unknown 05/05/2023 9:15 AM CDT 05/10/2023 9:44 AM CDT Dorian Flynn MD LAB - PATHOLOGY/CYTO LOGY ORDERABLES Performing Organization Address City/State/[facility] Co de Phone Number [facility] [address] [phone] documented in this encounter Visit Diagnoses Diagnosis Illness, unspecified documented in this encounter Care Teams Double Bottom Driver Relationship Specialty Start Date End Date Leon Taylor MD [address] [address] PCP - General 02/28/19 documented as of this encounter
--- OUTSIDE RECORDS SUMMARY | 2024-11-19 13:28 | XMS_ITS | Referral Summary ---
Author Organization [facility] Address [address] [place] [address] Care Team Providers Care Ampoule Inspector Name Role Phone Leon Taylor MD Primary Care Provider + Source Comments [facility],non-owned Affiliates and Associated Physician Practices is amultiple site organization consisting of ambulatory clinics and hospital sitesin [place], [place], [place] and [place]. This disclosure is being madepursuant to the Care Everywhere program and may not contain all information available regarding this patient. Last updated 18.[facility] [email or web address] Social History Tobacco Use Types Packs/Day Years Used Date Smoking Tobacco: Never Assessed Sex and Gender Information Value Date Recorded Sex Assigned at Not on file Gender Identity Not on file Sexual Orientation Not on file Plan of Treatment Not on file Care Teams Ampoule Inspector Relationship Specialty Start Date End Date Leon Taylor MD [address] [facility] [address] [place] [address] PCP - General 02/28/19
--- OUTSIDE RECORDS SUMMARY | 2024-11-19 13:28 | XMS_ITS | Patient Health Summary ---
Author Organization [facility] Address [address] [facility] [place] [address] Care Team Providers Care Air Traffic Instructor Name Role Phone Leon Taylor MD Primary Care Provider + Note from [facility],non-owned Affiliates and Associated Physician Practices is amultiple site organization consisting of ambulatory clinics and hospital sitesin [place], [place], [place] and [place]. This disclosure is being madepursuant to the Care Everywhere program and may not contain all information available regarding this patient. Last updated 18.[facility] Social History Tobacco Use Types Packs/Day Years Used Date Smoking Tobacco: Never Assessed Sex and Gender Information Value Date Recorded Sex Assigned at Not on file Gender Identity Not on file Sexual Orientation Not on file Procedures * BONE MARROW BIOPSY (STL)(Performed 05/05/2023) Performed for Illness, unspecified * FLOW CYTOMETRY BONE MARROW(Performed 05/05/2023) Performed for Anemia, unspecified Results * FLOW CYTOMETRY BONE MARROW (05/05/2023 9:15 AM CDT) Case Report Flow Cytometry Case: [id number] Authorizing Provider: Dorian Flynn MD Collected: 05/05/2023 09:15 AM Ordering Location: [facility] Pathology Lab Received: 05/05/2023 01:34 PM Pathologist: Munir Espinoza MD Specimen: Bone Marrow 05/05/2023 4:54 PM CDT U PATHOLOGY LAB Final Diagnosis Bone marrow, flow cytometric immunophenotypic analysis: - No evidence of non-Hodgkin lymphoma or high-grade myeloid neoplasm. - See interpretation. Correlation with clinical findings, corresponding bone marrow biopsy, cytogenetic/molecu lar studies is required. 05/05/2023 4:54 PM CDT U PATHOLOGY LAB Flow Cytometry Interpretation Viability: 90% - Lymphocytes (17% of events) B-cells (5% of lymphocyes): polytypic, kappa:lambda ratio 1.6:1 T-cells (85% of lymphocytes): no immunophenotypic aberrancy detected - dimCD45 gate (5% of events) 2.3% of CD34 + blasts detected, express CD33 and CD13 with rehab physician maturation. Plasma cells: polytypic, kappa:lambda ratio 1.5:1 no immunophenotypic aberrancy detected MRD sent: no A bone marrow aspirate smear prepared from the flow cytometry specimen has been reviewed for quality engineer medical device purposes. 05/05/2023 4:54 PM [facility] PATH[facility] Flow Cytometry Results Differential Result Comment Flow Cell Count /uL 36,800 Total Viability % 90.0 Lymphocytes % 17 Dim CD45 Region % 5 Monocytes % 8 Granulocytes % 69 05/05/2023 4:54 PM CDT U PATHOLOGY LAB Reason for test Anemia, unspecified 285.9 05/05/2023 4:54 PM [facility] Client Specimen ID # [id number] 05/05/2023 4:54 PM [facility] Number of markers 14 were performed. A-2 Flow CD10 A-3 Flow CD13 A-5 Flow CD20 A-13 Flow CD117 A-14 FLOW CD138 A-1 Flow CD5 A-4 Flow CD19 A-6 Flow CD33 A-7 Flow CD34 A-8 Flow CD45 A-11 Flow CD38 A-12 Flow CD56 A-9 [place]+CD19+ A-10 Lambda+CD19+ 05/05/2023 4:54 PM [facility] Pathologist Location at [facility] 05/05/2023 4:54 PM [facility] Disclaimer Test performed at [facility], [address] [place], [place], [address]. *The established laboratory minimum viability is 70%. [...] complexity clinical testing. 05/05/2023 4:54 PM CDT [facility] Embedded Images 4:54 PM CDT [facility] Pathology/Cytolo gy BONE MARROW SPECIMEN / Unknown 05/05/2023 9:15 AM CDT 05/05/2023 1:34 PM CDT Dorian Flynn MD LAB - PATHOLOGY/CYTO LOGY ORDERABLES [facility] [address] [phone] * BONE MARROW BIOPSY (STL) (05/05/2023 9:15 AM CDT) Case Report Bone Marrow Patholog y Report Case: [id number] Authorizing Provider: Dorian Flynn MD Collected: 05/05/2023 09:15 AM Ordering Location: [facility] Pathology Lab Received: 05/10/2023 09:44 AM Pathologist: [...] blood smear: - Pancytopenia 05/10/2023 5:09 PM CDT [facility] Comment Correlation with clinical findings, imaging and cytogenetic/molecular testing is required. 05/10/2023 5:09 PM CDT U PATHOLOGY LAB Peripheral Smear Description RBC: normocytic and hypochromic anemia WBC: marked leukopenia with absolute lymphopenia, no circulating blasts seen Platelets: decreased in number 05/10/2023 5:09 PM CDT U PATHOLOGY LAB Bone Marrow Aspirate Specimen quality: adequate Spicules: present Trilineage Hematopoiesis: present Myeloid:Erythroid ratio: normal Myeloid Maturation: normal Erythroid Maturation: normal Megakaryocyte morphology:normal Storage iron (by special stain): decreased Sideroblastic iron (by special stain): absent 05/10/2023 5:09 PM [facility] Bone Marrow Core Biopsy [...] (by special stain): absent 05/10/2023 5:09 PM [facility] Flow Cytometry Summary Bone marrow, flow cytometric immunophenotypic analysis ([id number]): - No evidence of non-Hodgkin lymphoma or high-grade myeloid neoplasm. 05/10/2023 5:09 PM [facility] Clinical History 73 year-old male with pancytopenia. 05/10/2023 5:09 PM [facility] Pathologist Location at [facility] 05/10/2023 5:09 PM [facility] Disclaimer The performance characteristics of all immunohistochemical and indirect immunofluorescence stains (if any) cited in this report were determined by the Histopathology Laboratory of [facility]. Some of these tests were developed by [...] the attending (teaching) pathologist. 05/10/2023 5:09 PM [facility] Embedded Images 05/10/2023 5:09 PM [facility] Pathology/Cytology BONE MARROW SPECIMEN / Unknown 05/05/2023 9:15 AM CDT 05/10/2023 9:44 AM CDT Miscellaneous samples (specimen) BONE MARROW SPECIMEN / Unknown 05/05/2023 9:15 AM CDT 05/10/2023 9:44 AM CDT Dorian Flynn MD LAB - PATHOLOGY/CYTO LOGY ORDERABLES Performing Organization Address City/State/[facility] Co de Phone Number [facility] [address] [phone] Care Teams Air Traffic Instructor Relationship Specialty Start Date End Date Leon Taylor MD [address] [address] PCP - General 02/28/19
--- OUTSIDE RECORDS SUMMARY | 2024-11-19 13:29 | XMS_ITS | Clinical Summary ---
Author Organization [facility] Christo Vizcaino Address [address] [place] [address] Care Team Providers Care [employer] Name Role Phone Leon Taylor MD Primary Care Provider [phone] Allergies No known active allergies Medications Eliquis 5 mg tablet Take 5 mg by mouth 2 times daily. Active ferrous sulfate 325 mg (65 mg iron) tablet Take 325 mg by mouth 2 times daily. 04/15/2023 Active furosemide (LASIX) 40 mg tablet Take 40 mg by mouth 2 times daily. 04/17/2023 Active oxyBUTYnin (DITROPAN) 5 mg tablet Take 5 mg by mouth daily. Active tamsulosin (FLOMAX) 0.4 mg capsule Take 0.4 mg by mouth 2 times daily. 04/17/2023 Active propranoloL (INDERAL LA) 120 mg Long Acting 24 hour capsule Take 120 mg by mouth daily. 02/07/2023 Active folic acid (FOLVITE) 400 mcg Tablet Take 400 mcg by mouth daily. Active doxazosin (CARDURA) 8 mg tablet Take 8 mg by mouth daily. Active cyanocobalamin 1,000 mcg Tablet Take 1,000 mcg by mouth daily. Active Active Problems No known active problems Encounters Date Type Department Care Team Description 11/12/2024 External Device Data [facility] ABSTRACTION Provider, Abstract 10/30/2024 External Device Data [facility] ABSTRACTION Provider, Abstract 10/03/2024 External Device Data [facility] ABSTRACTION Provider, Abstract 09/27/2024 External Device Data [facility] ABSTRACTION Provider, Abstract from Last 3 Months Family History Relation Name Status Comments Brother 1 Alive Brother 2 Father Mother Sister 1 Alive Sister 2 Sister 3 Social History Tobacco Use Types Packs/Day Years Used Date Smoking Tobacco: Never Smokeless Tobacco: Never Tobacco Cessation:Counseling Given: Not Answered Alcohol Use Standard Drinks/Week Comments Not Asked 0 (1 standard drink = 0.6 oz pur e alcohol) rare Sex and Gender Information Value Date Recorded Sex Assigned at Not on file Legal Sex Male 8:04 AM CDT Gender Identity Not on file Sexual Orientation Not on file Last Filed Vital Signs Vital Sign Reading Time Taken Comments Blood Pressure 134/73 06/04/2024 11:06 AM CDT Pulse 62 06/04/2024 11:06 AM CDT Temperature 36.6 C (97.8 F) 06/04/2024 11:06 AM CDT Respiratory Rate 20 06/04/2024 11:06 AM CDT Oxygen Saturation 94% 06/04/2024 11:06 AM CDT Inhaled Oxygen Concentration - - Weight 118.8 kg (262 lb) 06/04/2024 11:06 AM CDT Height 177.8 cm (5' 10 ) 04/22/2023 2:36 PM CDT Body Mass Index 37.59 04/22/2023 2:36 PM CDT Plan of Treatment Upcoming Encounters Date Type Department Care Team (Late st Contact Info) Description 11/27/2024 1:15 PM CDT Office Visit [facility] On[facility] and H[facility] - [place] [address] [facility] [address] [place] [address] Nolan Herron MD [address] [place] [address] Health Maintenance Due Date Last Done Comments DTAP/TDAP/TD VACCINES (1 - Tdap) 1969 PNEUMOCOCCAL VACCINE 50+ YEA RS (1 of 2 - PCV) 1968 Traditional Medicare (ACO) A nnual Wellness Visit 1968 FIT-DNA Q 3 years 1994 FIT/FOBT Q 1 year 1994 Flex Sig/CT Colonography Q 5 years 1994 ZOSTER VACCINE (1 of 2) 1999 INFLUENZA VACCINE (#1) 2024 07/26/2019 RSV VACCINE (60+ or ) (1 - 1-dose 75+ series) 2024 COLORECTAL SCREENING 12/28/2033 12/29/2023, 04/07/2023, 02/23/2019 Colorectal Cancer Screening 12/28/2033 Insurance [facility] MEDIC[facility] PART A AND B Care Teams [employer] Relationship Specialty Start Date End Date Leon Taylor MD [address] [phone] PCP - General Family Practice 04/22/23
--- OUTSIDE RECORDS SUMMARY | 2024-11-19 13:29 | XMS_ITS | Clinical Summary ---
Author Organization [facility] [address] Address [address] [place] [address] Care Team Providers Care Anthropological Linguist Name Role Phone Leon Taylor MD Primary Care Prov ider Bhavesh Valdez MD Unavailable [phone] Nolan Herron MD Unavailable [phone] Allergies No known active allergies Medications lisinopril (PRINIVIL,ZESTR IL) 20 mg tablet Take 1 tablet (20 mg total) by mouth daily 3 9 Active tamsulosin (FLOMAX) 0.4 mg extended release capsule Take 1 capsule (0.4 mg total) by mouth 2 (two) times a day 5 9 Active doxazosin (CARDURA) 8 mg tablet TAKE 1 TABLET (8 MG TOTAL) BY MOUTH DAILY 90 tablet 2 0 Active acetaminophen ER (TYLENOL) 650 mg 8 hr tablet Take 1 tablet (650 mg total) by mouth every 8 (eight) hours as needed for pain Active oxybutynin (DITROPAN) 5 mg tablet TAKE 1 TAB BY MOUTH DAILY FOR BLADDER 0 Active loperamide (IMODIUM) 2 mg capsule TAKE 1 CAPSULE BY MOUTH 4 TIMES DAILY NEEDED 1 Active Eliquis 5 mg tablet TAKE 1 TABLET BY MOUTH TWICE A DAY 60 tablet 7 1 Active metOLazone (ZAROXOLYN) 2.5 mg tablet TAKE 1 TABLET A DAY ONLY 3 DAYS OF THE WEEK. 36 tablet 3 2 Active ferrous sulfate 325 mg (65 mg of elemental iron) tablet Take 1 tablet (325 mg total) by mouth 2 (two) times a day Active propranolol LA (INDERAL LA) 120 mg 24 hr capsule Take 1 capsule (120 mg total) by mouth daily Active folic acid (FOLVITE) 400 mcg tablet Take 2 tablets (800 mcg total) by mouth daily Active cyanocobalamin (vitamin B-12) 1,000 mcg tabletIndicatio ns:Prevention of Vitamin B12 Deficiency Take 1 tablet (1,000 mcg total) by mouth daily Active furosemide (LASIX) 40 mg tablet Take 1 tablet (40 mg total) by mouth 2 (two) times a day 5 Active furosemide (LASIX) 20 mg tablet Take 2 tablets (40 mg total) by mouth 2 (two) times a day 120 tablet 3 1 10/29/19 25 Discontinu ed(Denver lira) Active Problems Problem Noted Date Diagnosed Date Nonrheumatic tricuspid valve regurgitation 08/22 Severe obesity 08/22/2024 Presence of Watchman left atrial appendage closu re device 03/21/2024 02/07/2024 Persistent atrial fibrillation 05/25/2019 Overview (05/25/2019): Added automatically from request for surgery [id number] Assessment & Plan (08/25/2023 5:27 PM CORN CROP SUPERVISOR): The patient is status post catheter ablation for persistent atrial fibrillation. He has experienced recurrence despite amiodarone therapy. As amiodarone is not providing significant benefit, I advised that he discontinue this medication this. We discussed options, and he is interested in repeat ablation. We discussed the rationale for atrial fibrillation ablation, including the steps involved in ablation. I detailed the risks of the procedure, including vascular injury/hematoma, myocardial injury/perforation, stroke, myocardial infarction, pulmonary vein stenosis, thermal esophageal injury, phrenic nerve injury and . Because of the patient's persistent atrial fibrillation, I recommended that they undergo transesophageal echocardiography (to exclude the presence of left atrial thrombus) immediately prior to EP study and ablation. We will determine the appropriate timing. The patient is interested in undergoing percutaneous left atrial appendage occlusion, and it may be better to proceed with ablation 1st. From: September, Felicia LS, Brice JS, Natanael H, Len SONAM, Lena JE, Angel TRACY, Wen PT, Stiven MALLOY, ME, Jimmy KT, Ryan RL, Sebastian WG, Dwayne PJ, Darleen CM, Nadine CW. 2013 AHA/ACC/HRS guideline for the management of patients with atrial fibrillation: a report of the [place] [employer]/[place] Heart Association Task Force on Practice Guidelines and the Heart Rhythm Society. J Am Elle Cardiol 2014. 6.3. AF Catheter Ablation to Maintain Sinus Rhythm: Recommendations Class IIa AF catheter ablation is reasonable for selected patients with symptomatic persistent AF refractory or intolerant to at least 1 class I or III antiarrhythmic medication (388, 392-394). (Level of Evidence: A) Morbid obesity with BMI of 40.0-44.9, adult 05/07 S/P CABG (coronary artery bypass graft) 04/05/20 17 residential (current) use of anticoagulants [Z79.0 1] 02/16/2017 Assessment & Plan (08/25/2023 5:28 PM CORN CROP SUPERVISOR): The patient has atrial fibrillation with an elevated [id number] score (3). Based on this, systemic anticoagulation is recommended for thromboprophylaxis. The patient also has a contraindication for long-term anticoagulation: GI bleeding, iron-deficiency anemia Because of this combination of factors, we discussed the steps involved and rationale for percutaneous left atrial appendage occlusion (placement of a W atchman left atrial appendage occlusion device). We discussed the risks, including hematoma/vascular injury, myocardial perforation, stroke or thromboembolic event, device embolism, and . We discussed the benefits, as well as the post- Watchman medication / follow-up regimen, to include a MARCE at 45 days post-device placement. I provided the patient with educational material. If the patient would like to proceed, I will refer her to our Watchman coordinator for additional screening and preparations. From: Mee JA, Marquis MK, Love AL, et al. 2022 CC/AHA/ACCP/HRS Guideline for the Diagnosis and Management of Atrial Fibrillation: A Report of the [place] [employer]/ [place] Heart Association Joint Committee on Clinical Practice Guidelines. Circulation 2022;148: e42 Class IIA: In patients with AF, a moderate to high risk of stroke (WPV6RS2-QMFg score >=2), and a contraindication to long-term oral anticoagulation due to a nonreversible cause, percutaneous LAAO (pLAAO) is reasonable Hypertension 10/15/2014 Chronic coronary artery disease 09/30/2014 Resolved Problems Problem Noted Date Diagnosed Date Resolved Date A-fib 02/07/2024 03/21/2024 Paroxysmal atrial fibrillation (CMS/HCC) 03/30/2019 06/29/2022 Overview (03/30/2019): Added automatically from request for surgery [id number] Atrial fibrillation (CMS/HCC) [I48.91] 02/16/2017 06/29/2022 Encounters Date Type Department Care Team Description 11/09/2024 3:00 PM CORN CROP SUPERVISOR - 11/09/2024 11:59 PM CORN CROP SUPERVISOR Hospital Encounter [facility] [address] [place] [phone] Nonrheumatic tricuspid valve regurgitation Discharge Disposition: Discharge to home or self care 11/09/2024 2:00 PM CORN CROP SUPERVISOR - 11/09/2024 11:59 PM CORN CROP SUPERVISOR Hospital Encounter [facility] OP Cardiac Testing [address] [place] [address] [address] [place] [address] Nonrheumatic tricuspid valve regurgitation Discharge Disposition: Discharge to home or self care 11/09/2024 10:27 AM CORN CROP SUPERVISOR - 11/09/2024 11:59 PM CORN CROP SUPERVISOR Hospital Encounter [facility] - Imaging [address] [place] [phone] Edward Mckeon MD Nonrheumatic tricuspid valve regurgitation; Abnormal result of cardiovascular function study, unspecified Discharge Disposition: Discharge to home or self care 11/09/2024 10:00 AM CORN CROP SUPERVISOR - 11/09/2024 11:59 PM CORN CROP SUPERVISOR Hospital Encounter [facility] - [facility] [address] [place] [phone] Edward Mckeon MD Dysphagia, unspecified type Discharge Disposition: Discharge to home or self care 10/29/2024 10:00 AM CORN CROP SUPERVISOR Office Visit [facility] [address] [place] [address] Edward Mckeon MD Persistent atrial fibrillation (HCC) (Primary Dx); Nonrheumatic tricuspid valve regurgitation; Abnormal result of cardiovascular function study, unspecified; Chronic coronary artery disease; Primary hypertension; Mixed hyperlipidemia 10/29/2024 Telephone [facility] [address] [place] [address] Edward Mckeon MD SCHEDULE TRICUSPID MARCE 08/22/2024 10:30 AM CORN CROP SUPERVISOR Office Visit [facility] [address] [place] [phone] Liliana Bynum NP Chronic coronary artery disease (Primary Dx); terminal carman (current) use of anticoagulants [Z79.01]; Persistent atrial fibrillation (HCC); Presence of Watchman left atrial appendage closure device; Nonrheumatic tricuspid valve regurgitation; Severe obesity (HCC) from Last 3 Months Immunizations Immunization Administration Dates Next Due Influenza, Trivalent, High D ose, Split, Preservative Free, Intramuscular 07/26/2019 Surgical History Surgery Date Site/Laterality Comments CORONARY ARTERY BYPASS GRAFT REPLACEMENT TOTAL KNEE BILATERAL HERNIA REPAIR CARDIAC CATHETERIZATION Medical History Medical History Date Comments Atrial fibrillation (HCC) Shortness of breath Hyperlipidemia Hypertension Coronary artery disease Family History Medical History Relation Name Comments Heart disease Father Relation Name Status Comments Father Mother Social History Tobacco Use Types Packs/Day Years Used Date Smoking Tobacco: Never Smokeless Tobacco: Never Tobacco Cessation:Counseling Given: Not Answered Alcohol Use Standard Drinks/Week Comments No 0 (1 standard drink = 0.6 oz pur e alcohol) AUDIT-C Answer Date Recorded Q1: How often do you have a drink containing alcohol? Never 02/07/2024 Q2: How many drinks containi ng alcohol do you have on a typical day when you are drinking? Patient does not drink Q3: How often do you have si x or more drinks on one occasion? Never 02/07/2024 Personal Safety Answer Date Recorded Have you ever been in or are you currently in a harmful physical or emotional relationship or is someone making you feel afraid or unsafe? Denies 03/22/2024 Sex and Gender Information Value Date Recorded Sex Assigned at Not on file Legal Sex Male 8:52 PM CORN CROP SUPERVISOR Gender Identity Not on file Sexual Orientation Not on file Obstetrics History Last Filed Vital Signs Vital Sign Reading Time Taken Comments Blood Pressure 128/66 10/29/2024 10:11 AM CORN CROP SUPERVISOR Pulse 92 10/29/2024 10:11 AM CORN CROP SUPERVISOR Temperature 36.1 C (97 F) 02/07/2024 2:25 PM CDT Respiratory Rate 56 03/22/2024 8:45 AM CDT Oxygen Saturation 97% 10/29/2024 10:11 AM CORN CROP SUPERVISOR Inhaled Oxygen Concentration - - Weight 114.3 kg (252 lb) 10/29/2024 10:11 AM CORN CROP SUPERVISOR Height 177.8 cm (5' 10 ) 10/29/2024 10:11 AM CORN CROP SUPERVISOR Body Mass Index 36.16 10/29/2024 10:11 AM CORN CROP SUPERVISOR Plan of Treatment Health Maintenance Due Date Last Done Comments Colon Cancer Screening-Colonoscopy 1950 Depression Screening 1950 Hepatitis C Screening 1950 DTaP/Tdap/Td Vaccine (1 - Tdap) 1960 Hepatitis B Screening 1967 Well Visit 65+ 2014 Zoster Vaccine (2 of 3) 10/11/2015 08/16/2015 Pneumococcal vaccine 65+ (2 of 2 - PPSV23) 08/05/2018 06/10/2018 Influenza Vaccine (#1) 2024 9, 06/10/2018, 08/27/2016, Additional history exists Fall Risk Assessment 02/06/2025 02/07/2024 Medical Devices Implanted Type Area Value Engineer Device Identifier Shelf Expiration Date Model / Serial / Lot [employer] Brad Device Closure 27mm Lt Watchman Flx Pro Cardiac Strl La [id number] - [id number] - [id number] Implanted:Qty: 1 on 02/07/2024 by Caleb Bonilla MD at [facility] Left Atrial Appendage Occluder [employer] Brad 12/07/2026 [id number] / [id number] / [id number] [employer] Vascade Mvp 6-12fr Venous Closure [id number] - [id number] - [id number] Implanted:Qty: 1 on 02/07/2024 by Caleb Bonilla MD at [facility] [employer] 11/23/2025 [id number] / [id number] / [id number] Procedures Procedure Name Priority Date/Time Associated Diagnosis Comments PULMONARY FUNCTION TEST (PFT) Routine 11/09/2024 3:58 PM CORN CROP SUPERVISOR Nonrheumatic tricuspid valve regurgitation TRANSTHORACIC ECHO (TTE) COMPLETE W DOPPLER/CF W CONTRAST Routine 11/09/2024 3:43 PM CORN CROP SUPERVISOR Nonrheumatic tricuspid valve regurgitation FL ESOPHAGRAM, DOUBLE CONTRAST Schedule Routine, Read Routine (OP Routine) 11/09/2024 12:16 PM CORN CROP SUPERVISOR Dysphagia, unspecified type CT TAVR Schedule Routine, Read Routine (OP Routine) 11/09/2024 11:50 AM CORN CROP SUPERVISOR Nonrheumatic tricuspid valve regurgitation Abnormal result of cardiovascular function study, unspecified POCT CREATININE FOR CONTRAST EVALUATION Routine 11/09/2024 10:46 AM CORN CROP SUPERVISOR COMPREHENSIVE METABOLIC PANEL Routine 11/06/2024 11:05 AM CORN CROP SUPERVISOR Nonrheumatic tricuspid valve regurgitation CBC WITH AUTO DIFFERENTIAL Routine 11/06/2024 11:05 AM CORN CROP SUPERVISOR Nonrheumatic tricuspid valve regurgitation from Last 3 Months Results * TRANSTHORACIC ECHO (TTE) COMPLETE W DOPPLER/CF W CONTRAST (11/09/2024 3:43 PM CORN CROP SUPERVISOR) Anatomical Region Laterality Modality Ultrasound 11/09/2024 2:03 PM CORN CROP SUPERVISOR Narrative 11/09/2024 5:48 PM CORN CROP SUPERVISOR [facility] [address] [place] [address] ECHOCARDIOGRAM Patient Name: JUSTUS RODRIGUEZ : 1950 (74y 6m) Gender: M Study Date: 11/09/2024 02:03:35 PM Ht(Inch): 70 Wt(Lb): 251.99 BSA: 2.38 Catalogue Maker: Location: 210 OPT Order Provider: EDWARD MCKEON BMI: 36.15 BP: 128/66 Ref Provider: RACHANADAVIANHUBERT EDWARD - PROCEDURES: Echocardiographic Report: Transthoracic Echocardiogram with 2D, M-Mode, Spectral and Color Flow Doppler examination and administration of intravenous contrast. INDICATIONS: I36.1 Nonrheumatic tricuspid (valve) insufficiency. MEASUREMENTS: 2D/MM Value Range Doppler Value Range IVSd 2D 0.75 cm [ 0.60 - 1.00 ] AV Peak Cuco 1.55 m/s [ 1.00 - 1.70 ] LVIDd 2D 5.09 cm [ 4.20 - 5.80 ] AV Peak PG 9.6 mmHg LVIDs 2D 3.56 cm [ 2.50 - 4.00 ] AV Mean PG 5.9 mmHg LVPWd 2D 0.84 cm [ 0.60 - 1.00 ] AV VTI 35.7 cm EF Mod BP 60 % [ 52 - 72 ] RAGINI VTI 1.6 cm2 LA Dimen 2D 5.81 cm [ 3.00 - 4.00 ] LVOT Peak Cuco 0.82 m/s [ 0.70 - 1.10 ] AoR Diam 2D 2.85 cm [ 3.10 - 3.70 ] LVOT Diam 2.0 cm AoR Diam 2D Index 1.20 LVOT Peak PG 2.7 mmHg RA Volume 163.00 ml LVOT VTI 17.6 cm LA Volume Index 20.30 ml/m2 [ 16.00 - 34.00 ] MV Peak PG 5.9 mmHg TAPSE 1.03 cm [ 1.71 - 5.00 ] MV Mean PG 1.5 mmHg MV E Peak Cuco 1.3 m/s [ 0.6 - 1.3 ] MV PHT 39.0 ms [ 20.0 - 100.0 ] MV Decel Time 192.0 ms [ 104.0 - 258.0 ] MVA PHT 5.7 ms TR Peak Cuco 2.6 m/s [ 1.0 - 2.8 ] TR Peak PG 37 mmHg RVSP 52.0 mmHg [ 10.0 - 36.0 ] RA Pressure 15.0 mmHg PV Peak Cuco 0.8 m/s [ 0.4 - 0.8 ] PV Peak PG 2.3 mmHg Lat E` Cuco 0.14 m/s [ 0.10 - 0.15 ] Sept E' Cuco 0.08 m/s [ 0.08 - 0.15 ] E/E` 9.29 RV S' 0.07 m/s 2D/MM Value Range Doppler Value Range - FINDINGS: BP: Blood pressure: 128/66 mmHg. Left Ventricle: Normal global and regional left ventricular systolic function. Ejection Fraction (Simpsons) is measured at 60 %. Right Ventricle: Mild right ventricular dysfunction. Moderate enlargement of right ventricle. Left Atrium: The left atrium is normal in size. Right Atrium: The right atrium is normal in size. Atrial Septum: Normal appearing atrial septum. Mitral Valve: Normal mitral valve appearance and function. Aortic Valve: Normal aortic valve appearance and function. Tricuspid Valve: Torrential tricuspid regurgitation. Pulmonic Valve: Normal appearance and function of the pulmonic valve. Pericardium: Normal appearing pericardial thickness. No significant pericardial effusion. Aortic Root and Aorta: The sinuses of Valsalva are normal. Normal caliber aortic root. Normal sized ascending aorta. Normal sized descending aorta. Aortic Arch: Normal caliber aortic arch. IVC: Normal appearance of the inferior vena cava. CONCLUSIONS: 1. Normal global and regional left ventricular systolic function. Ejection Fraction (Simpsons) is measured at 60 %. 2. Mild right ventricular dysfunction. Moderate enlargement of right ventricle. 3. Torrential tricuspid regurgitation. 4. Normal appearing pericardial thickness. No significant pericardial effusion. Electronically Signed By: Edward Mckeon MD 11/09/2024 5:47:59 PM CORN CROP SUPERVISOR Procedure Note Edward Mckeon MD - 11/09/2024 [facility] [address] [place] [id number] ECHOCARDIOGRAM Patient Name: JUSTUS RODRIGUEZ : 1950 (74y 6m) Gender: M Study Date: 11/09/2024 02:03:35 PM Ht(Inch): 70 Wt(Lb): 251.99 BSA: 2.38 Catalogue Maker: Location: 210 OPT Order Provider: EDWARD MCKEON BMI: 36.15 BP: 128/66 Ref Provider: EDWARD MCKEON - PROCEDURES: Echocardiographic Report: Transthoracic Echocardiogram with 2D, M-Mode,Spectral and Color Flow Doppler examination and administration of intravenouscontrast. INDICATIONS: I36.1 Nonrheumatic tricuspid (valve) insufficiency. MEASUREMENTS: 2D/MM Value Range DopplerValue Range IVSd 2D 0.75 cm [ 0.60 - 1.00 ] AV Peak Vel1.55 m/s [ 1.00 - 1.70 ] LVIDd 2D 5.09 cm [ 4.20 - 5.80 ] AV Peak PG9.6 mmHg LVIDs 2D 3.56 cm [ 2.50 - 4.00 ] AV Mean PG5.9 mmHg LVPWd 2D 0.84 cm [ 0.60 - 1.00 ] AV VTI35.7 cm EF Mod BP 60 % [ 52 - 72 ] RAGINI VTI1.6 cm2 LA Dimen 2D 5.81 cm [ 3.00 - 4.00 ] LVOT Peak Vel0.82 m/s [ 0.70 - 1.10 ] AoR Diam 2D 2.85 cm [ 3.10 - 3.70 ] LVOT Diam2.0 cm AoR Diam 2D Index 1.20 LVOT Peak PG2.7 mmHg RA Volume 163.00 ml LVOT VTI17.6 cm LA Volume Index 20.30 ml/m2 [ 16.00 - 34.00 ] MV Peak PG5.9 mmHg TAPSE 1.03 cm [ 1.71 - 5.00 ] MV Mean PG1.5 mmHg MV E Peak Cuco 1.3 m/s [ 0.6 - 1.3 ] MV PHT 39.0 ms [ 20.0 - 100.0 ] MV Decel Time 192.0 ms [ 104.0 - 258.0 ] MVA PHT 5.7 ms TR Peak Cuco 2.6 m/s [ 1.0 - 2.8 ] TR Peak PG 37 mmHg RVSP 52.0 mmHg [ 10.0 - 36.0 ] RA Pressure 15.0 mmHg PV Peak Cuco 0.8 m/s [ 0.4 - 0.8 ] PV Peak PG 2.3 mmHg Lat E` Cuco 0.14 m/s [ 0.10 - 0.15 ] Sept E' Cuco 0.08 m/s [ 0.08 - 0.15 ] E/E` 9.29 RV S' 0.07 m/s 2D/MM Value Range DopplerValue Range - FINDINGS: BP: Blood pressure: 128/66 mmHg. Left Ventricle: Normal global and regional left ventricular systolicfunction. Ejection Fraction (Simpsons) is measured at 60 %. Right Ventricle: Mild right ventricular dysfunction. Moderate enlargementof right ventricle. Left Atrium: The left atrium is normal in size. Right Atrium: The right atrium is normal in size. Atrial Septum: Normal appearing atrial septum. Mitral Valve: Normal mitral valve appearance and function. Aortic Valve: Normal aortic valve appearance and function. Tricuspid Valve: Torrential tricuspid regurgitation. Pulmonic Valve: Normal appearance and function of the pulmonic valve. Pericardium: Normal appearing pericardial thickness. No significantpericardial effusion. Aortic Root and Aorta: The sinuses of Valsalva are normal. Normal caliberaortic root. Normal sized ascending aorta. Normal sized descending aorta. Aortic Arch: Normal caliber aortic arch. IVC: Normal appearance of the inferior vena cava. CONCLUSIONS: 1. Normal global and regional left ventricular systolic function. EjectionFraction (Simpsons) is measured at 60 %. 2. Mild right ventricular dysfunction. Moderate enlargement of rightventricle. 3. Torrential tricuspid regurgitation. 4. Normal appearing pericardial thickness. No significant pericardialeffusion. Electronically Signed By: Edward Mckeon MD 11/09/2024 5:47:59 PM CORN CROP SUPERVISOR Edward Mckeon MD CV ECHO PROCEDURES Final Result * FL Esophagram, Double Contrast (11/09/2024 12:16 PM CORN CROP SUPERVISOR) Anatomical Region Laterality Modality Body N/A Radio Fluoroscop y 11/09/2024 1:16 PM CORN CROP SUPERVISOR Impressions 11/09/2024 1:51 PM CORN CROP SUPERVISOR 1. Trace laryngeal penetration. No evidence of gross transglottic aspiration on this examination. Residue within the vallecula and pyriform sinuses. A modified barium swallow with speech therapy can be considered for further evaluation if felt clinically warranted. 2. Smooth impression of the posterior cervical esophagus at level C5 without obstruction to bolus flow; this is felt consistent with a prominent cricopharyngeus. 3. Esophageal dysmotility with tertiary contractions. 4. Delayed transit of contrast across the gastroesophageal junction resulting in contrast column within the mid to distal esophagus; felt likely related to spasm or reduced relaxation of the lower esophageal sphincter likely associated with dysmotility. 5. Circumferential narrowing at the level of the distal esophagus lying just superior to a small hiatal hernia this may be related to spasming in this region, although, a nonobstructive Schatzki's ring could be in the differential. Further evaluation can be made with direct visualization. FLUOROSCOPY TIME: 2.3 minutes REFERENCE AIR KERMA: 100 mGy Dictated by: Birgit Rdz PA-C The radiology attending physician has personally reviewed this study, and had reviewed and/or edited this written report and agrees with it. Electronically signed by: Anil Randolph M.D. Narrative 11/09/2024 1:51 PM CORN CROP SUPERVISOR EXAMINATION: DOUBLE CONTRAST BARIUM ESOPHAGRAM 11/09/2024. HISTORY: Dysphagia. Plans for upcoming transesophageal echocardiogram. TECHNIQUE: The patient was given barium, a barium tablet, and effervescent crystals to drink, and multiple fluoroscopic radiographs were obtained. FINDINGS: There are sternotomy wires present. There is postoperative changes of a Watchman device. There is laryngeal penetration. There is no gross evidence of transglottic aspiration on this examination. There is residue within the vallecula and pyriform sinuses. There is a smooth impression of the posterior cervical esophagus at level C5 without obstruction of bolus flow (series 3, 6, and 14). The esophageal mucosa pattern is normal. There is reduced intensity of the esophageal waves resulting in contrast residue within the esophagus. There are tertiary contractions. There is delayed transit of contrast across the gastroesophageal junction in the upright position resulting in contrast column within the distal esophagus reaching the midesophagus (series 6 through 8) felt likely related to spasm or reduced relaxation of the lower esophageal sphincter. The GE junction is patent (series 9). There is unobstructed flow of the barium tablet across the GE junction. There is a circumferential narrowing at the level of the distal esophagus lying just superior to a small hiatal hernia (series 11, 13, and 14). The partially visualized portions of the stomach are unremarkable. No gastroesophageal reflux was elicited with provocative maneuvers. Overhead images with successive drinks of barium were not performed to reduce the risk of aspiration. Procedure Note Anil Randolph MD - 11/09/2024 EXAMINATION: DOUBLE CONTRAST BARIUM ESOPHAGRAM 11/09/2024. HISTORY: Dysphagia. Plans for upcoming transesophageal echocardiogram. TECHNIQUE: The patient was given barium, a barium tablet, and effervescent crystals to drink, and multiple fluoroscopic radiographs were obtained. FINDINGS: There are sternotomy wires present. There is postoperative changes of a Watchman device. There is laryngeal penetration. There is no gross evidence of transglottic aspiration on this examination. There is residue within the vallecula and pyriform sinuses. There is a smooth impression of the posterior cervical esophagus at level C5 without obstruction of bolus flow (series 3, 6, and 14). The esophageal mucosa pattern is normal. There is reduced intensity of the esophageal waves resulting in contrast residue within the esophagus. There are tertiary contractions. There is delayed transit of contrast across the gastroesophageal junction in the upright position resulting in contrast column within the distal esophagus reaching the midesophagus (series 6 through 8) felt likely related to spasm or reduced relaxation of the lower esophageal sphincter. The GE junction is patent (series 9). There is unobstructed flow of the barium tablet across the GE junction. There is a circumferential narrowing at the level of the distal esophagus lying just superior to a small hiatal hernia (series 11, 13, and 14). The partially visualized portions of the stomach are unremarkable. No gastroesophageal reflux was elicited with provocative maneuvers. Overhead images with successive drinks of barium were not performed to reduce the risk of aspiration. IMPRESSION: 1. Trace laryngeal penetration. No evidence of gross transglottic aspiration on this examination. Residue within the vallecula and pyriform sinuses. A modified barium swallow with speech therapy can be considered for further evaluation if felt clinically warranted. 2. Smooth impression of the posterior cervical esophagus at level C5 without obstruction to bolus flow; this is felt consistent with a prominent cricopharyngeus. 3. Esophageal dysmotility with tertiary contractions. 4. Delayed transit of contrast across the gastroesophageal junction resulting in contrast column within the mid to distal esophagus; felt likely related to spasm or reduced relaxation of the lower esophageal sphincter likely associated with dysmotility. 5. Circumferential narrowing at the level of the distal esophagus lying just superior to a small hiatal hernia this may be related to spasming in this region, although, a nonobstructive Schatzki's ring could be in the differential. Further evaluation can be made with direct visualization. FLUOROSCOPY TIME: 2.3 minutes REFERENCE AIR KERMA: 100 mGy Dictated by: Birgit Rdz PA-C The radiology attending physician has personally reviewed this study, and had reviewed and/or edited this written report and agrees with it. Electronically signed by: Anil Randolph M.D. Edward Mckeon MD IM FLUOROSCOPY PROCEDURES Final Result * CT TAVR (11/09/2024 11:50 AM CORN CROP SUPERVISOR) Anatomical Region Laterality Modality Chest N/A Computed Tomogra phy 11/09/2024 2:02 PM CORN CROP SUPERVISOR Impressions 11/09/2024 3:56 PM CORN CROP SUPERVISOR 1. Measurements as above 2. Left atrial occluder device visualized in DALE with partial contrast opacification of the appendage. There is a filling defect in the distal aspect of the DALE that could represent thrombus vs mixing artifact. 3. Scattered mediastinal, abdominal, and pelvic lymphadenopathy of unclear etiology. Mediastinal lymph nodes as large as 1.3 cm in short axis and abdominal as large as 1.3cm. In short axis These could be reactive in the setting of volume overload or related to a primary process. 4. The liver contour appears nodular with ascites and splenomegaly suggestive of hepatic cirrhosis with portal hypertension. Dictated by: Omar Interiano M.D. The radiology attending physician has personally reviewed this study, and had reviewed and/or edited this written report and agrees with it. Electronically signed by: Popeye Becker M.D. Narrative 11/09/2024 3:56 PM CORN CROP SUPERVISOR EXAMINATION: Heart CT and CTA abdomen and pelvis with contrast. History: Tricuspid valve regurgitation, pre-transcatheter tricuspid valve procedure. Technique: Heart CT and CT angiogram of the abdomen and pelvis performed during administration of 115 mL of Optiray 350, intravenously per the TAVR tricuspid valve protocol, to include venous phase imaging of the lower extremities. Images were transferred to an independent workstation for additional 3D post-processing. FINDINGS: Tricuspid valve and right heart measurements: Tricuspid valve annulus area: Systole 1945 mm2 Diastole 2264 mm2 Tricuspid valve annulus circumference: Systole 159.5 mm Diastole 171.4 mm Tricuspid valve diameter (craniocaudal): Systole 50.2 mm Diastole 50.2 mm Tricuspid valve diameter (septal to lateral): Systole 45.9 mm Diastole 45.9 mm Right ventricle height perpendicular to tricuspid valve plane (Systole): 61.0 mm 60.8 mm Right ventricle height perpendicular to tricuspid valve plane (Diastole): 72.6 mm 80.1 mm Right atrial height (Systole): 70.1 mm Right atrial diameter (Diastole): 103.8 mm Infrarenal IVC and lower extremity veins (MPRs): IVC: 27 mm x 23.8 mm Right common iliac vein: 21.2 mm x 16.1 mm. Left common iliac vein: 23.3 mm x 17.2 mm. Right external iliac vein: 16.8 mm x 13.4 mm. Left external iliac vein: 16.6 mm x 13.4 mm. Right common femoral vein: 16.9 mm x 16.0 mm. Left common femoral vein: 17.7 mm x 15.4 mm. Tricuspid valve, right ventricle, right atrial, IVC and lower extremity vein measurements as described above in preparation for transcatheter valve placement in patient with severe tricuspid valve regurgitation. Other findings: There is hilar adenopathy with the largest lymph node measuring 1.15cm. Pelvic and abdominal lymphadenopathy with the largest lymph node measuring 1.3cm. Bilateral pleural effusions with left greater than right. Ascites present with a nodular hepatic contour suggesting hepatic cirrhosis with portal hypertension. There is splenomegaly measuring 14.5cm. Aortic calcification throughout. Procedure Note Short, Popeye Minaya MD - 11/09/2024 EXAMINATION: Heart CT and CTA abdomen and pelvis with contrast. History: Tricuspid valve regurgitation, pre-transcatheter tricuspid valve procedure. Technique: Heart CT and CT angiogram of the abdomen and pelvis performed during administration of 115 mL of Optiray 350, intravenously per the TAVR tricuspid valve protocol, to include venous phase imaging of the lower extremities. Images were transferred to an independent workstation for additional 3D post-processing. FINDINGS: Tricuspid valve and right heart measurements: Tricuspid valve annulus area: Systole 1945 mm2 Diastole 2264 mm2 Tricuspid valve annulus circumference: Systole 159.5 mm Diastole 171.4 mm Tricuspid valve diameter (craniocaudal): Systole 50.2 mm Diastole 50.2 mm Tricuspid valve diameter (septal to lateral): Systole 45.9 mm Diastole 45.9 mm Right ventricle height perpendicular to tricuspid valve plane (Systole): 61.0 mm 60.8 mm Right ventricle height perpendicular to tricuspid valve plane (Diastole): 72.6 mm 80.1 mm Right atrial height (Systole): 70.1 mm Right atrial diameter (Diastole): 103.8 mm Infrarenal IVC and lower extremity veins (MPRs): IVC: 27 mm x 23.8 mm Right common iliac vein: 21.2 mm x 16.1 mm. Left common iliac vein: 23.3 mm x 17.2 mm. Right external iliac vein: 16.8 mm x 13.4 mm. Left external iliac vein: 16.6 mm x 13.4 mm. Right common femoral vein: 16.9 mm x 16.0 mm. Left common femoral vein: 17.7 mm x 15.4 mm. Tricuspid valve, right ventricle, right atrial, IVC and lower extremity vein measurements as described above in preparation for transcatheter valve placement in patient with severe tricuspid valve regurgitation. Other findings: There is hilar adenopathy with the largest lymph node measuring 1.15cm. Pelvic and abdominal lymphadenopathy with the largest lymph node measuring 1.3cm. Bilateral pleural effusions with left greater than right. Ascites present with a nodular hepatic contour suggesting hepatic cirrhosis with portal hypertension. There is splenomegaly measuring 14.5cm. Aortic calcification throughout. IMPRESSION: 1. Measurements as above 2. Left atrial occluder device visualized in DALE with partial contrast opacification of the appendage. There is a filling defect in the distal aspect of the DALE that could represent thrombus vs mixing artifact. 3. Scattered mediastinal, abdominal, and pelvic lymphadenopathy of unclear etiology. Mediastinal lymph nodes as large as 1.3 cm in short axis and abdominal as large as 1.3cm. In short axis These could be reactive in the setting of volume overload or related to a primary process. 4. The liver contour appears nodular with ascites and splenomegaly suggestive of hepatic cirrhosis with portal hypertension. Dictated by: Omar Interiano M.D. The radiology attending physician has personally reviewed this study, and had reviewed and/or edited this written report and agrees with it. Electronically signed by: Popeye Becker M.D. us Edward Mckeon MD IMG CT PROCEDURES Final Result * (ABNORMAL) POCT creatinine for contrast evaluation (11/09/2024 10:46 AM CORN CROP SUPERVISOR) [facility] Creatinine, POC 2.0(A) 0.6 - 1.5 mg/dL Comment:eGFR: 35 Blood 11/09/2024 10:4 6 AM CORN CROP SUPERVISOR us Edward Mckeon MD POINT OF CARE TEST ORDERABLES Fi nal Result * (ABNORMAL) CBC with auto differential (11/06/2024 11:05 AM CORN CROP SUPERVISOR) [facility] WBC 1.9(L) 3.8 - 10.8 Thousand/u L [facility] RBC, POC 3.49(L) 4.20 - 5.80 Million/uL [facility] Hgb 9.6(L) 13.2 - 17.1 g/dL [facility] Hct 30.9(L) 38.5 - 50.0 % [facility] MCV 88.5 80.0 - 100.0 fL [facility] MCH 27.5 27.0 - 33.0 pg [facility] MCHC 31.1(L) 32.0 - 36.0 g/dL [facility] Comment: For adults, a slight decrease in the calculated MCHC value (in the range of 30 to 32 g/dL) is most likely not clinically significant; however, it should be interpreted with caution in correlation with other red cell parameters and the patient's clinical condition. Rdw 14.4 11.0 - 15.0 % [facility] Platelets 118(L) 140 - 400 Thousand/u L [facility] MPV 10.6 7.5 - 12.5 fL [facility] Neutrophils, abs 1,214(L) 1,500 - 7,800 cells/uL [facility] Lymphocytes, abs 448(L) 850 - 3,900 cells/uL [facility] Monocyte abs 188(L) 200 - 950 cells/uL [facility] Eosinophils, abs 40 15 - 500 cells/uL [facility] Basophils, abs 10 0 - 200 cells/uL [facility] Neutrophils 63.9 % [facility] Lymphocyte pct 23.6 % [facility] Monocytes 9.9 % [facility] Eosinophils 2.1 % [facility] Basophils 0.5 % [facility] Blood 11/06/2024 11:0 5 AM CORN CROP SUPERVISOR 11/06/2024 11:05 AM CORN CROP SUPERVISOR us Edward Mckeon MD LAB BLOOD ORDERABLES Final Resul t [facility] [id number] [facility] [place] [phone] * (ABNORMAL) Comprehensive metabolic panel (11/06/2024 11:05 AM CORN CROP SUPERVISOR) Pathologist [facility] Glucose 102(H) 65 - 99 mg/dL [facility] Comment: Fasting reference interval For someone without known diabetes, a glucose value between 100 and 125 mg/dL is consistent with prediabetes and should be confirmed with a follow-up test. BUN 31(H) 7 - 25 mg/dL [facility] Creatinine 1.63(H) 0.70 - 1.28 mg/dL [facility] eGFR 44(L) > OR = 60 mL/min/1.7 3m2 [facility] BUN/creat ratio 19 6 - 22 (calc) [facility] Sodium 135 135 - 146 mmol/L [facility] Potassium, pl 4.5 3.5 - 5.3 mmol/L [facility] Chloride 101 98 - 110 mmol/L [facility] CO2 25 20 - 32 mmol/L [facility] Calcium 8.6 8.6 - 10.3 mg/dL [facility] Protein, sr 6.9 6.1 - 8.1 g/dL [facility] Albumin 3.9 3.6 - 5.1 g/dL [facility] GLOBULIN 3.0 1.9 - 3.7 g/dL (calc) [facility] Alb/glob ratio 1.3 1.0 - 2.5 (calc) [facility] Bilirubin, total 0.6 0.2 - 1.2 mg/dL [facility] Alk phos 45 35 - 144 U/L [facility] AST 13 10 - 35 U/L [facility] ALT (SGPT) 8(L) 9 - 46 U/L [facility] Blood 11/06/2024 11:0 5 AM CORN CROP SUPERVISOR 11/06/2024 11:05 AM CORN CROP SUPERVISOR us Edward Mckeon MD LAB BLOOD ORDERABLES Final Resul t [facility] [id number] [address] [phone] from Last 3 Months Insurance [facility] MEDICARE MEDICARE MEDICARE COMMERCIAL [place] [address] [place] [address] [place] [address] Advance Directives For more information, please contact: [phone] * Full Code (Latest Code Status on File) Date Activated Date Inactivated Comments 2019 10:44 AM 04/27/2019 5:09 PM Care Teams Anthropological Linguist Relationship Specialty Start Date End Date Leon Taylor MD [address] [place] [address] PCP - General 12/03/16 Bhavesh Valdez MD [address] [facility] [address] [place] [address] Consulting Physician Cardiology 08/26/23 Nolan Herron MD [address] [facility] [address] [place] [address] Referring Physician Hematology 08/26/23
--- OUTSIDE RECORDS SUMMARY | 2024-11-19 13:29 | XMS_ITS | Referral Summary ---
Author Organization [facility] [address] Address [address] [place] [address] Care Team Providers Care Raker Buffing Wheel Name Role Phone Leon Taylor MD Primary Care Prov ider Bhavesh Valdez MD Unavailable [phone] Nolan Herron MD Unavailable [phone] Encounters Date Type Department Care Team Description 11/09/2024 10:00 AM WELLNESS PROGRAM ADMINISTRATOR - 11/09/2024 11:59 PM WELLNESS PROGRAM ADMINISTRATOR Hospital Encounter [facility] [address] [place] [phone] Edward Mckeon MD Dysphagia, unspecified type Discharge Disposition: Discharge to home or self care 11/09/2024 10:27 AM WELLNESS PROGRAM ADMINISTRATOR - 11/09/2024 11:59 PM WELLNESS PROGRAM ADMINISTRATOR Hospital Encounter [facility] [address] [place] [phone] Edward Mckeon MD Nonrheumatic tricuspid valve regurgitation; Abnormal result of cardiovascular function study, unspecified Discharge Disposition: Discharge to home or self care 11/09/2024 3:00 PM WELLNESS PROGRAM ADMINISTRATOR - 11/09/2024 11:59 PM WELLNESS PROGRAM ADMINISTRATOR Hospital Encounter [facility] [address] [place] [phone] Nonrheumatic tricuspid valve regurgitation Discharge Disposition: Discharge to home or self care 11/09/2024 2:00 PM WELLNESS PROGRAM ADMINISTRATOR - 11/09/2024 11:59 PM WELLNESS PROGRAM ADMINISTRATOR Hospital Encounter [facility] [address] [facility] [address] [place] [address] Nonrheumatic tricuspid valve regurgitation Discharge Disposition: Discharge to home or self care 10/29/2024 Telephone [facility] Card[facility] [address] [facility] [address] [place] [address] Edward Mckeon MD SCHEDULE TRICUSPID MARCE 10/29/2024 10:00 AM WELLNESS PROGRAM ADMINISTRATOR Office Visit [facility] Cardiology [address] [facility] [address] [place] [address] Edward Mckeon MD Persistent atrial fibrillation (HCC) (Primary Dx); Nonrheumatic tricuspid valve regurgitation; Abnormal result of cardiovascular function study, unspecified; Chronic coronary artery disease; Primary hypertension; Mixed hyperlipidemia 08/22/2024 10:30 AM WELLNESS PROGRAM ADMINISTRATOR Office Visit [facility] Cardiology [address] [facility] [address] [place] [address] Liliana Bynum NP Chronic coronary artery disease (Primary Dx); 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 2014 AHA/ACC/HRS guideline for the management of patients with atrial fibrillation: a report of the [place] [employer]/[place] [employer] Association Task Force on Practice Guidelines [...] CABG (coronary artery bypass graft) 04/05/20 17 FPC (current) use of anticoagulants [Z79.0 1] 02/16/2017 Assessment & Plan (08/25/2023 5:28 PM WELLNESS PROGRAM ADMINISTRATOR): The patient has atrial fibrillation with an elevated [id number] score (3). Based on this, systemic anticoagulation [...] of Atrial Fibrillation: A Report of the [place] [employer]iology/ [place] [employer] Association Joint Committee on Clinical Practice Guidelines. Circulation 2022;148: e42 Class IIA: In patients with AF, a moderate to high risk of stroke (PVH3HZ5-IESc score >=2), and a contraindication to long-term oral anticoagulation due to a nonreversible cause, percutaneous LAAO (pLAAO) is reasonable Hypertension 10/15/2014 Chronic coronary artery disease 09/30/2014 Resolved Problems Problem Noted Date Diagnosed Date Resolved Date A-fib 02/07/2024 03/21/2024 Paroxysmal atrial fibrillation ([facility]/HCC) 03/30/2019 06/29/2022 Overview (03/30/2019): Added automatically from request for surgery [id number] Atrial fibrillation ([facility]) [I48.91] 02/16/2017 06/29/2022 Immunizations Immunization Administration Dates Next Due Influenza, Trivalent, High D ose, Split, Preservative Free, Intramuscular 07/26/2019 Social History Tobacco Use Types Packs/Day Years [...] on file Legal Sex Male 8:52 PM WELLNESS PROGRAM ADMINISTRATOR Gender Identity Not on file Sexual Orientation Not on file Last Filed Vital Signs Vital Sign Reading Time Taken Comments Blood Pressure 128/66 10/29/2024 10:11 AM WELLNESS PROGRAM ADMINISTRATOR Pulse 92 10/29/2024 10:11 AM WELLNESS PROGRAM ADMINISTRATOR Temperature 36.1 C (97 F) 02/07/2024 2:25 PM CDT Respiratory Rate 56 03/22/2024 8:45 AM CDT Oxygen Saturation 97% 10/29/2024 10:11 AM WELLNESS PROGRAM ADMINISTRATOR Inhaled Oxygen Concentration - - Weight 114.3 kg (252 lb) 10/29/2024 10:11 AM WELLNESS PROGRAM ADMINISTRATOR Height 177.8 cm (5' 10 ) 10/29/2024 10:11 AM WELLNESS PROGRAM ADMINISTRATOR Body Mass Index 36.16 10/29/2024 10:11 AM WELLNESS PROGRAM ADMINISTRATOR Plan of Treatment Not on file Medical Devices Implanted Type Area [employer] Helicopter Device Identifier Shelf Expiration Date Model / Serial / Lot [employer] Brad Device Closure 27mm Lt Watchman Flx Pro Cardiac Strl [place] [id number] - [id number] - [id number] Implanted:Qty: 1 on 02/07/2024 by Caleb Bonilla MD at [facility] Left Atrial Appendage Occluder [employer] Brad 12/07/2026 [id number] / [id number] / [id number] [employer] [facility] Vascade Mvp 6-12fr Venous Closure [id number] - [id number] - [id number] Implanted:Qty: 1 on 02/07/2024 by Caleb Bonilla MD at [facility] [employer] 11/23/2025 [id number] / [id number] / [id number] Procedures Procedure Name Priority Date/Time Associated Diagnosis Comments PULMONARY FUNCTION TEST (PFT) Routine 11/09/2024 3:58 PM WELLNESS PROGRAM ADMINISTRATOR Nonrheumatic tricuspid valve regurgitation TRANSTHORACIC ECHO (TTE) COMPLETE W DOPPLER/CF W CONTRAST Routine 11/09/2024 3:43 PM WELLNESS PROGRAM ADMINISTRATOR Nonrheumatic tricuspid valve regurgitation FL ESOPHAGRAM, DOUBLE CONTRAST Schedule Routine, Read Routine (OP Routine) 11/09/2024 12:16 PM WELLNESS PROGRAM ADMINISTRATOR Dysphagia, unspecified type CT TAVR Schedule Routine, Read Routine (OP Routine) 11/09/2024 11:50 AM WELLNESS PROGRAM ADMINISTRATOR Nonrheumatic tricuspid valve regurgitation Abnormal result of cardiovascular function study, unspecified POCT CREATININE FOR CONTRAST EVALUATION Routine 11/09/2024 10:46 AM WELLNESS PROGRAM ADMINISTRATOR COMPREHENSIVE METABOLIC PANEL Routine 11/06/2024 11:05 AM WELLNESS PROGRAM ADMINISTRATOR Nonrheumatic tricuspid valve regurgitation CBC WITH AUTO DIFFERENTIAL Routine 11/06/2024 11:05 AM WELLNESS PROGRAM ADMINISTRATOR Nonrheumatic tricuspid valve regurgitation from Last 3 Months Results * TRANSTHORACIC ECHO (TTE) COMPLETE W DOPPLER/CF W CONTRAST (11/09/2024 3:43 PM WELLNESS PROGRAM ADMINISTRATOR) Anatomical Region Laterality Modality Ultrasound 11/09/2024 2:03 PM WELLNESS PROGRAM ADMINISTRATOR Narrative 11/09/2024 5:48 PM WELLNESS PROGRAM ADMINISTRATOR [facility] [address] [place] [address] ECHOCARDIOGRAM Patient Name: JUSTUS RODRIGUEZ : 1950 (74y 6m) Gender: M Study Date: 11/09/2024 02:03:35 PM Ht(Inch): 70 Wt(Lb): 251.99 BSA: 2.38 Keg Filler: Location: 210 OPT Order Provider: EDWARD MCKEON [...] By: Edward Mckeon MD 11/09/2024 5:47:59 PM WELLNESS PROGRAM ADMINISTRATOR Procedure Note Edward Mckeon MD - 11/09/2024 [facility] [address] [place] [address] ECHOCARDIOGRAM Patient Name: JUSTUS RODRIGUEZ : 1950 (74y 6m) Gender: M Study Date: 11/09/2024 02:03:35 PM Ht(Inch): 70 Wt(Lb): 251.99 BSA: 2.38 Keg Filler: Location: 210 OPT Order Provider: EDWARD MCKEON [...] By: Edward Mckeon MD 11/09/2024 5:47:59 PM WELLNESS PROGRAM ADMINISTRATOR Edward Mckeon MD CV ECHO PROCEDURES Final Result * FL Esophagram, Double Contrast (11/09/2024 12:16 PM WELLNESS PROGRAM ADMINISTRATOR) Anatomical Region Laterality Modality Body N/A Radio Fluoroscop y 11/09/2024 1:16 PM WELLNESS PROGRAM ADMINISTRATOR Impressions 11/09/2024 1:51 PM WELLNESS PROGRAM ADMINISTRATOR 1. Trace laryngeal penetration. No evidence of [...] Anil Randolph M.D. Narrative 11/09/2024 1:51 PM WELLNESS PROGRAM ADMINISTRATOR EXAMINATION: DOUBLE CONTRAST BARIUM ESOPHAGRAM 11/09/2024. HISTORY: [...] by: Anil Randolph M.D. Edward Mckeon MD [facility] FLUOROSCOPY PROCEDURES Final Result * CT TAVR (11/09/2024 11:50 AM WELLNESS PROGRAM ADMINISTRATOR) Anatomical Region Laterality Modality Chest N/A Computed Tomogra phy 11/09/2024 2:02 PM WELLNESS PROGRAM ADMINISTRATOR Impressions 11/09/2024 3:56 PM WELLNESS PROGRAM ADMINISTRATOR 1. Measurements as above 2. Left atrial [...] Popeye Becker M.D. Narrative 11/09/2024 3:56 PM WELLNESS PROGRAM ADMINISTRATOR EXAMINATION: Heart CT and CTA abdomen and [...] it. Electronically signed by: Popeye Becker M.D. Edward Mckeon MD IM CT PROCEDURES Final Result * (ABNORMAL) POCT creatinine for contrast evaluation (11/09/2024 10:46 AM WELLNESS PROGRAM ADMINISTRATOR) Creatinine, POC 2.0(A) 0.6 - 1.5 mg/dL Comment:eGFR: 35 Blood 11/09/2024 10:4 6 AM WELLNESS PROGRAM ADMINISTRATOR us Edward Mckeon MD POINT OF CARE TEST ORDERABLES Fi nal Result * (ABNORMAL) CBC with auto differential (11/06/2024 11:05 AM WELLNESS PROGRAM ADMINISTRATOR) WBC 1.9(L) 3.8 - 10.8 Thousand/u L [facility] Blood 11/06/2024 11:0 5 AM WELLNESS PROGRAM ADMINISTRATOR 11/06/2024 11:05 AM WELLNESS PROGRAM ADMINISTRATOR us Edward Bony MALLOY LAB BLOOD ORDERABLES Final Resul t [facility] [address] [address] [facility] [place] [address] * (ABNORMAL) Comprehensive metabolic panel (11/06/2024 11:05 AM WELLNESS PROGRAM ADMINISTRATOR) Glucose 102(H) 65 - 99 mg/dL [facility] Blood 11/06/2024 11:0 5 AM WELLNESS PROGRAM ADMINISTRATOR 11/06/2024 11:05 AM WELLNESS PROGRAM ADMINISTRATOR us Edward Mckeon MD LAB BLOOD ORDERABLES Final Resul t [facility] [address] [address] [phone] from Last [address] [facility] MEDICARE MEDICARE MEDICARE COMMERCIAL [place] [address] [place] [address] [facility] Advance Directives For more information, please contact: [phone] * Full Code (Latest Code Status on File) Date Activated Date Inactivated Comments 2019 10:44 AM 04/27/2019 5:09 PM Care Teams Raker Buffing Wheel Relationship Specialty Start Date End Date Leon Taylor MD [address] [place] [address] PCP - General 12/03/16 Bhavesh Valdez MD [address] [place] [address] [address] [place] [address] Consulting Physician Cardiology 08/26/23 Nolan Herron MD [address] [facility] [address] [place] [address] Referring Physician Hematology 08/26/23
== END 2024-11-19 10:57 | disposition home or self-care (01) ==
LOC: ANHLAB 10:58
PROVIDERS: PCP Family Medicine Adolescent Medicine; Visit Provider Internal Medicine Hematology & Oncology
DX: D64.9 Anemia, unspecified (principal)
CPT/HCPCS: 36415; 80048; 82607; 82728; 82746; 83540; 83550; 85025

== ENCOUNTER 2024-12-07 12:10 | Outpatient (CLI) | payer MEDICARE, SELFPAY ==
--- NOTE | ~2024-12-07 | MMUS_ITS ---
EXAMINATION: US breast BI complete, MM diagnostic wiliam BI w aidan HISTORY: Bilateral palpable breast abnormalities TECHNIQUE: Additional 3-D tomosynthesis images of the breasts were performed and synthetic 2-D images were generated. CAD analysis was submitted and interpreted. High resolution bilateral complete breas t ultrasound was performed. COMPARISON: None BREAST PARENCHYMAL COMPOSITION: Dense: The breasts are heterogeneously dense, which may obscure small masses FINDINGS: MAMMOGRAPHIC FINDINGS: There is bilateral symmetric gynecomastia. No suspicious masses, calcifications or architectural dist ortion in either breast to suggest malignancy. ULTRASOUND: Complete US of all 4 quadrants of the breast/s and retroareolar region was reviewed. Normal heterogen eous echotexture without focal suspicious solid or cystic mass. IMPRESSION: 1. No evidence for malignancy in either breast. Benign bilateral symmetric gynecomastia. 2. Recommend clinical management for gynecomastia. BI-RADS CATEGORY 2 - BENIGN FINDINGS Reviewed, dictated and finalized at location A. IMPRESSION: 1. No evidence for malignancy in either breast. Benign bilateral symmetric gyne comastia. 2. Recommend clinical management for gynecomastia. BI-RADS CATEGORY 2 - BENIGN FINDINGS
--- OUTSIDE RECORDS SUMMARY | 2024-12-07 12:14 | XMS_ITS | Clinical Summary ---
Author Organization [facility] Christo fowler Charis Address [address] [place] [address] Care Team Providers Care Mechanical Technician Name Role Phone Leon Taylor MD Primary Care Provider [phone] Allergies No known active allergies Medications Eliquis [...] Encounters Date Type Department Care Team Description 11/27/2024 1:15 PM CDT Office Visit [facility] Oncology and Hematology - [address] [place] [address] Nolan Herron MD Chronic anemia (Primary Dx); Mass of breast, unspecified laterality 11/21/2024 External Device Data STL ABSTRACTION Provider, Abstract 11/21/2024 Orders Only [facility] Oncology and Hematology - [address] [address] [place] [address] Nolan Herron MD 11/12/2024 External Device Data STL ABSTRACTION Provider, [...] Sign Reading Time Taken Comments Blood Pressure 132/74 11/27/2024 1:18 PM CDT Pulse 76 11/27/2024 1:18 PM CDT Temperature 36.2 C (97.1 F) 11/27/2024 1:18 PM CDT Respiratory Rate 14 11/27/2024 1:18 PM CDT Oxygen Saturation 92% 11/27/2024 1:18 PM CDT Inhaled Oxygen Concentration - - Weight 120.7 kg (266 lb) 11/27/2024 1:18 PM CDT Height 177.8 cm (5' 10 ) 04/22/2023 2:36 PM CDT Body Mass Index 38.17 04/22/2023 2:36 PM CDT Plan of Treatment Upcoming Encounters Date Type Department Care Team (Late st Contact Info) Description 12/11/2024 4:15 PM CDT Telephone Check Up [facility] Oncology and Hematology - [address]em [address] [place] [phone] Nolan Herron MD [address] [facility] [address] [place] [phone] 02/28/2025 2:30 PM CDT Office Visit [facility] Oncology and Hematology - Jem [address] [place] [address] Nolan Herron MD [address] [facility] [address] [place] [address] Health Maintenance Due Date Last [...] 12/29/2023, 04/07/2023, 02/23/2019 Colorectal Cancer Screening 12/28/2033 Procedures Procedure Name Priority Date/Time Associated Diagnosis Comments BASIC METABOLIC PANEL Routine 11/19/2024 4:09 PM CDT from Last 3 Months Results * BASIC METABOLIC PANEL (11/19/2024 4:09 PM CDT) Blood Nolan Herron MD CHEMISTRY ORDERABLES Final Resu lt from Last 3 Months Insurance [employer] SU[employer] MEDICARE PART A AND B Care Teams Mechanical Technician Relationship Specialty Start Date End Date Leon Taylor MD PCP - General Family Practice 04/22/23
--- OUTSIDE RECORDS SUMMARY | 2024-12-07 12:14 | XMS_ITS | Clinical Summary ---
Author Organization [facility] Address [address] [facility] [place] [address] Care Team Providers Care Truant Officer Name Role Phone Leon Taylor MD Primary Care Provider + Source Comments [facility],non-owned Affiliates and Associated Physician Practices is amultiple site organization consisting of ambulatory clinics and hospital sitesin [place], [place], [place] and [place]. This disclosure is being madepursuant to the Care Everywhere program and may not contain all information available regarding this patient. Last updated 18.[facility] Social History Tobacco Use Types Packs/Day Years [...] age to complete this topic Care Teams Truant Officer Relationship Specialty Start Date End Date Leon Taylor MD [address] [address] [facility] - General 02/28/19
--- OUTSIDE RECORDS SUMMARY | 2024-12-07 12:14 | XMS_ITS | Encounter Summary ---
Author Organization [facility] Address [address] [facility] [place] [address] Care Team Providers Care Retail Account Executive Name Role Phone Leon Taylor MD Primary Care Provider + Encounter Details Date Type Department Care Team (Late st Contact Info) Description 05/05/[address] [facility] - Pathology Lab [address] [place] [phone] Dorian Flynn MD [address] [address] Anemia, unspecified Social History Tobacco [...] AM CDT) Case Report Flow Cytometry Case: [id number] Authorizing Provider: Dorian Flynn MD Collected: 05/05/2023 09:15 AM Ordering Location: [facility] Pathology Lab Received: 05/05/2023 01:34 PM Pathologist: Munir Espinoza MD Specimen: Bone Marrow 05/05/2023 4:54 PM CDT U PATHOLOGY LAB Final Diagnosis Bone marrow, flow cytometric immunophenotypic analysis: - No evidence of non-Hodgkin lymphoma or high-grade myeloid neoplasm. - See interpretation. Correlation with clinical findings, corresponding bone marrow biopsy, cytogenetic/molecu lar studies is required. 05/05/2023 4:54 PM [facility] PATHOLOGY LAB Flow Cytometry Interpretation Viability: 90% - Lymphocytes (17% of events) B-cells (5% of lymphocyes): polytypic, kappa:lambda ratio 1.6:1 T-cells (85% of lymphocytes): no immunophenotypic aberrancy detected - dimCD45 gate (5% of events) 2.3% of CD34 + blasts detected, express CD33 and CD13 with cloud administrator maturation. Plasma cells: polytypic, kappa:lambda ratio 1.5:1 no immunophenotypic aberrancy detected MRD sent: no A bone marrow aspirate smear prepared from the flow cytometry specimen has been reviewed for director of quality purposes. 05/05/2023 4:54 PM [facility] PATHOLOGY LAB Flow Cytometry Results Differential Result Comment Flow Cell Count /uL 36,800 Total Viability % 90.0 Lymphocytes % 17 Dim CD45 Region % 5 Monocytes % 8 Granulocytes % 69 05/05/2023 4:54 PM [facility] Reason for test Anemia, unspecified 285.9 05/05/2023 4:54 PM [facility] PATH[facility] Client Specimen ID # [id number] 05/05/2023 4:54 PM [facility] PATH[facility] Number of markers 14 were performed. A-2 Flow CD10 A-3 Flow CD13 A-5 Flow CD20 A-13 Flow CD117 A-14 FLOW CD138 A-1 Flow CD5 A-4 Flow CD19 A-6 Flow CD33 A-7 Flow CD34 A-8 Flow CD45 A-11 Flow CD38 A-12 Flow CD56 A-9 Patriot+CD19+ A-10 Lambda+CD19+ 05/05/2023 4:54 PM [facility] PATH[facility] Pathologist Location at [facility] 05/05/2023 4:54 PM [facility] PATHOLOGY LAB Disclaimer Test performed at [facility], [address] [place] [address], [address]. *The established laboratory minimum viability is 70%. [...] complexity clinical testing. 05/05/2023 4:54 PM CDT [facility] PATHOLOGY LAB Embedded Images 4:54 PM CDT [facility] Pathology/Cytolo gy BONE MARROW SPECIMEN / Unknown 05/05/2023 9:15 AM CDT 05/05/2023 1:34 PM CDT Dorian Flynn MD LAB - PATHOLOGY/CYTO LOGY ORDERABLES Performing Organization Address City/State/[facility] Co de Phone Number [facility] PATHOLOG[facility] LAB [address] [phone] documented in this encounter Visit Diagnoses Diagnosis Anemia, unspecified documented in this encounter Care Teams Retail Account Executive Relationship Specialty Start Date End Date Leon Taylor MD [address] [address] PCP - General 02/28/19 documented as of this encounter
--- OUTSIDE RECORDS SUMMARY | 2024-12-07 12:14 | XMS_ITS | Referral Summary ---
Author Organization [facility] [address] Address [address] [place] [address] Care Team Providers Care Side Laster Name Role Phone Leon Taylor MD Primary Care Prov ider Bhavesh Valdez MD Unavailable [phone] Nolan Herron MD Unavailable [phone] Encounters Date Type Department Care Team Description 12/03/2024 Results Follow-Up [facility] Cardiology [address] [facility] [address] [place] [address] Veena Balderas MA 11/09/2024 10:00 AM MARBLE POLISHER - 11/09/2024 11:59 PM MARBLE POLISHER Hospital Encounter [facility] - Imaging [address] [place] [phone] Edward Mckeon MD Dysphagia, unspecified type Discharge Disposition: Discharge to home or self care 11/09/2024 10:27 AM MARBLE POLISHER - 11/09/2024 11:59 PM MARBLE POLISHER Hospital Encounter [facility] - Imaging [address] [place] [phone] Edward Mckeon MD Nonrheumatic tricuspid valve regurgitation; Abnormal result of cardiovascular function study, unspecified Discharge Disposition: Discharge to home or self care 11/09/2024 3:00 PM MARBLE POLISHER - 11/09/2024 11:59 PM MARBLE POLISHER Hospital Encounter [facility] [address] [place] [phone] Nonrheumatic tricuspid valve regurgitation Discharge Disposition: Discharge to home or self care 11/09/2024 2:00 PM MARBLE POLISHER - 11/09/2024 11:59 PM MARBLE POLISHER Hospital Encounter [facility] OP Cardiac Testing [facility] [facility] [address] [place] [address] Nonrheumatic tricuspid valve regurgitation Discharge Disposition: Discharge to home or self care 10/29/2024 Telephone [facility] [address] [place] [address] [address] [place] [phone] Edward Mckeon MD SCHEDULE TRICUSPID MARCE 10/29/2024 10:00 AM MARBLE POLISHER Office Visit [facility] [address] [place] [address] [address] [place] [phone] Edward Mckeon MD Persistent atrial fibrillation (HCC) (Primary Dx); Nonrheumatic tricuspid valve regurgitation; Abnormal result of cardiovascular function study, unspecified; Chronic coronary artery disease; Primary hypertension; Mixed hyperlipidemia from Last 3 Months Allergies No known active allergies Medications lisinopril (PRINIVIL,ZESTR IL) 20 mg tablet Take 1 tablet (20 mg total) by mouth daily 3 01/03/2019 Active tamsulosin (FLOMAX) 0.4 mg extended release capsule Take 1 capsule (0.4 mg total) by mouth 2 (two) times a day 5 10/31/2018 Active doxazosin (CARDURA) 8 mg tablet TAKE 1 TABLET (8 MG TOTAL) BY MOUTH DAILY 90 tablet 2 12/24/2019 Active acetaminophen ER (TYLENOL) 650 mg 8 hr tablet Take 1 tablet (650 mg total) by mouth every 8 (eight) hours as needed for pain Active oxybutynin (DITROPAN) 5 mg tablet TAKE 1 TAB BY MOUTH DAILY FOR BLADDER 08/08/2020 Active loperamide (IMODIUM) 2 mg capsule TAKE 1 CAPSULE BY MOUTH 4 TIMES DAILY NEEDED 10/03/2020 Active Eliquis 5 mg tablet TAKE 1 TABLET BY MOUTH TWICE A DAY 60 tablet 7 07/06/2021 Active metOLazone (ZAROXOLYN) 2.5 mg tablet TAKE 1 TABLET A DAY ONLY 3 DAYS OF THE WEEK. 36 tablet 3 09/10/2021 Active ferrous sulfate 325 mg (65 mg [...] by mouth 2 (two) times a day 10/01/2024 Active Active Problems Problem Noted Date Diagnosed Date Nonrheumatic tricuspid valve regurgitation 08/22 Severe obesity 08/22/2024 Presence of Watchman left atrial appendage closu re device 03/21/2024 02/07/2024 Persistent atrial fibrillation 05/25/2019 Overview (05/25/2019): Added automatically from request for surgery [id number] Assessment & Plan (08/25/2023 5:27 PM MARBLE POLISHER): The patient is status post catheter ablation [...] with atrial fibrillation: a report of the [place] [employer]/[place] [employer] Association Task Force on Practice Guidelines [...] CABG (coronary artery bypass graft) 04/05/20 17 director long term care (current) use of anticoagulants [Z79.0 1] 02/16/2017 Assessment & Plan (08/25/2023 5:28 PM MARBLE POLISHER): The patient has atrial fibrillation with an elevated [id number] score (3). Based on this, systemic anticoagulation [...] of Atrial Fibrillation: A Report of the [place] [employer]iology/ [place] [employer] Association Joint Committee on Clinical Practice Guidelines. Circulation 2022;148: e42 Class IIA: In patients with AF, a moderate to high risk of stroke ([id number] score >=2), and a contraindication to long-term oral anticoagulation due to a nonreversible cause, percutaneous LAAO (pLAAO) is reasonable Hypertension 10/15/2014 Chronic coronary artery disease 09/30/2014 Resolved Problems Problem Noted Date Diagnosed Date Resolved Date A-fib 02/07/2024 03/21/2024 Paroxysmal atrial fibrillation (CMS/HCC) 03/30/2019 06/29/2022 Overview (03/30/2019): Added automatically from request for surgery [id number] Atrial fibrillation (CMS/HCC) [I48.91] 02/16/2017 06/29/2022 Immunizations Immunization Administration Dates [...] on file Legal Sex Male 8:52 PM MARBLE POLISHER Gender Identity Not on file Sexual Orientation Not on file Last Filed Vital Signs Vital Sign Reading Time Taken Comments Blood Pressure 128/66 10/29/2024 10:11 AM MARBLE POLISHER Pulse 92 10/29/2024 10:11 AM MARBLE POLISHER Temperature 36.1 C (97 F) 02/07/2024 2:25 PM CDT Respiratory Rate 56 03/22/2024 8:45 AM CDT Oxygen Saturation 97% 10/29/2024 10:11 AM MARBLE POLISHER Inhaled Oxygen Concentration - - Weight 114.3 kg (252 lb) 10/29/2024 10:11 AM MARBLE POLISHER Height 177.8 cm (5' 10 ) 10/29/2024 10:11 AM MARBLE POLISHER Body Mass Index 36.16 10/29/2024 10:11 AM MARBLE POLISHER Plan of Treatment Not on file Medical Devices Implanted Type Area Stacker Driver Device Identifier Shelf Expiration Date Model / Serial / Lot [employer] Brad Device Closure 27mm Lt Watchman Flx Pro Cardiac Strl La [id number] - [id number] - [id number] Implanted:Qty: 1 on 02/07/2024 by Caleb Bonilla MD at [facility] Left Atrial Appendage Occluder [employer] Rbad 12/07/2026 [id number] / [id number] / [id number] [employer] Vascade Mvp 6-12fr Venous Closure [id number] - [id number] - [id number] Implanted:Qty: 1 on 02/07/2024 by Caleb Bonilla MD at [facility] [employer] 11/23/2025 [id number] / [id number] / [id number] Procedures Procedure Name Priority Date/Time Associated Diagnosis Comments PULMONARY FUNCTION TEST (PFT) Routine 11/09/2024 3:58 PM MARBLE POLISHER Nonrheumatic tricuspid valve regurgitation TRANSTHORACIC ECHO (TTE) COMPLETE W DOPPLER/CF W CONTRAST Routine 11/09/2024 3:43 PM MARBLE POLISHER Nonrheumatic tricuspid valve regurgitation FL ESOPHAGRAM, DOUBLE CONTRAST Schedule Routine, Read Routine (OP Routine) 11/09/2024 12:16 PM MARBLE POLISHER Dysphagia, unspecified type CT TAVR Schedule Routine, Read Routine (OP Routine) 11/09/2024 11:50 AM MARBLE POLISHER Nonrheumatic tricuspid valve regurgitation Abnormal result of cardiovascular function study, unspecified POCT CREATININE FOR CONTRAST EVALUATION Routine 11/09/2024 10:46 AM MARBLE POLISHER COMPREHENSIVE METABOLIC PANEL Routine 11/06/2024 11:05 AM MARBLE POLISHER Nonrheumatic tricuspid valve regurgitation CBC WITH AUTO DIFFERENTIAL Routine 11/06/2024 11:05 AM MARBLE POLISHER Nonrheumatic tricuspid valve regurgitation from Last 3 Months Results * Pulmonary Function Test - (11/09/2024 3:58 PM MARBLE POLISHER) Anatomical Region Laterality Modality PFT 11/09/2024 3:56 PM MARBLE POLISHER Narrative 11/29/2024 4:32 PM CDT Table formatting from the original result was not included. [facility]ST AND SLEEP SPECIALISTS BOARD CERTIFIED IN PULMONARY, CRITICAL CARE, AND SLEEP MEDICINE Merissa Jarrell MD [facility] [facility] [id number] [place] [address] MD Chaz Ching MD Office [phone] Dorian Christie MD PULMONARY FUNCTION TESTING 6 Minute Walk Test Distance: 225ft O2 sat at rest on RA: 98 O2 sat alexus: 98 Max manoj score: 4 Pulse at rest: 87 Pulse with exertion: 125 BP at rest: 144/54 BP with exertion: 117/62 INTERPRETATION Diminished 6 minute walk distance. No hypoxemia at rest or with exertion Merissa Jarrell MD, Board Certified in Pulmonary and Critical Care Medicine [phone] Please note that our PFT lab has transitioned to the 2021 GLI prediction set which is a race neutral prediction set based on the most recent ATS/ERS recommendations. In addition, the interpretation is based upon the new ATS/ERS 2020 technical standards. Per this new standard, severity of the abnormalities is based upon z scores with -1.65 to -2.5 corresponding to a mild abnormality, -2.51 to -4.0 corresponding to a moderate abnormality and below -4.1 corresponding to a severe abnormality. Due to this, the stated level of impairment may be different from the prior pft reports. us Edward Mckeon MD PFT ORDERABLES Final Result * TRANSTHORACIC ECHO (TTE) COMPLETE W DOPPLER/CF W CONTRAST (11/09/2024 3:43 PM MARBLE POLISHER) Anatomical Region Laterality Modality Ultrasound 11/09/2024 2:03 PM MARBLE POLISHER Narrative 11/09/2024 5:48 PM MARBLE POLISHER [facility] Testing Center [address] [place] [address] ECHOCARDIOGRAM Patient Name: JUSTUS RODRIGUEZ : 1950 (74y 6m) Gender: M Study Date: 11/09/2024 02:03:35 PM Ht(Inch): 70 Wt(Lb): 251.99 BSA: 2.38 Hotel Or Motel Manager: Location: [address] Order Provider: EDWARD MCKEON [...] By: Edward Mckeon MD 11/09/2024 5:47:59 PM MARBLE POLISHER Procedure Note Edward Mckeon MD - 11/09/2024 [facility] [address] [place] [address] ECHOCARDIOGRAM Patient Name: JUSTUS RODRIGUEZ : 1950 (74y 6m) Gender: M Study Date: 11/09/2024 02:03:35 PM Ht(Inch): 70 Wt(Lb): 251.99 BSA: 2.38 Hotel Or Motel Manager: Location: [address] Order Provider: EDWARD MCKEON [...] By: Edward Mckeon MD 11/09/2024 5:47:59 PM MARBLE POLISHER Edward Mckeon MD CV ECHO PROCEDURES Final Result * FL Esophagram, Double Contrast (11/09/2024 12:16 PM MARBLE POLISHER) Anatomical Region Laterality Modality Body N/A Radio Fluoroscop y 11/09/2024 1:16 PM MARBLE POLISHER Impressions 11/09/2024 1:51 PM MARBLE POLISHER 1. Trace laryngeal penetration. No evidence of [...] Anil Randolph M.D. Narrative 11/09/2024 1:51 PM MARBLE POLISHER EXAMINATION: DOUBLE CONTRAST BARIUM ESOPHAGRAM 11/09/2024. HISTORY: [...] by: Anil Randolph M.D. Edward Mckeon MD Shellie FLUOROSCOPY PROCEDURES Final Result * CT TAVR (11/09/2024 11:50 AM MARBLE POLISHER) Anatomical Region Laterality Modality Chest N/A Computed Tomogra phy 11/09/2024 2:02 PM MARBLE POLISHER Impressions 11/09/2024 3:56 PM MARBLE POLISHER 1. Measurements as above 2. Left atrial [...] Popeye Becker M.D. Narrative 11/09/2024 3:56 PM MARBLE POLISHER EXAMINATION: Heart CT and CTA abdomen and [...] by: Popeye Becker M.D. Edward Mckeon MD IMG CT PROCEDURES Final Result * (ABNORMAL) POCT creatinine for contrast evaluation (11/09/2024 10:46 AM MARBLE POLISHER) [facility] Creatinine, POC 2.0(A) 0.6 - 1.5 mg/dL Comment:eGFR: 35 Blood 11/09/2024 10:4 6 AM MARBLE POLISHER Edward Mckeon MD POINT OF CARE TEST ORDERABLES Fi nal Result * (ABNORMAL) CBC with auto differential (11/06/2024 11:05 AM MARBLE POLISHER) [facility] WBC 1.9(L) 3.8 - 10.8 Thousand/u L [...] [facility] Blood 11/06/2024 11:0 5 AM MARBLE POLISHER 11/06/2024 11:05 AM MARBLE POLISHER us Edward Mckeon MD LAB BLOOD ORDERABLES Final Resul t [facility] [address] [place] [address] [id number] * (ABNORMAL) Comprehensive metabolic panel (11/06/2024 11:05 AM MARBLE POLISHER) Glucose 102(H) 65 - 99 mg/dL [facility] Blood 11/06/2024 11:0 5 AM MARBLE POLISHER 11/06/2024 11:05 AM MARBLE POLISHER us Edward Mckeon MD LAB BLOOD ORDERABLES Final Resul t [facility] [address] [address], [place] [id number] from Last 3 Months Insurance [facility] MEDICARE MEDICARE MEDICARE COMMERCIAL GENERIC Member Subscriber Plan / Payer ( fective 2019-Present) Name:Justus Rodriguez Relation to Subscriber:Self Name:Justus Rodriguez Payer ID:[id number] Group ID:[id number] Type:COMMERCIAL Address: [address] MEDICARE [employer] Member Subscriber Plan / Payer (Ef fective 2019-Present) Name:Justus Rodriguez Relation to Subscriber:Self Name:Justus Rodriguez Payer ID:[id number] Group ID:[id number] Type:COMMERCIAL Address: [address] [place] [phone] Advance Directives For more information, please contact: [phone] * Full Code (Latest Code Status on File) Date Activated Date Inactivated Comments 2019 10:44 AM 04/27/2019 5:09 PM Care Teams Side Laster Relationship Specialty Start Date End Date Leon Taylor MD [address] [place] [address] PCP - General 12/03/16 Bhavesh Valdez MD [address] [place] [address] [address] [place], [place] [id number] Consulting Physician Cardiology 08/26/23 Nolan Herron MD [address] [facility] [address] [place] [address] Referring Physician Hematology 08/26/23
--- OUTSIDE RECORDS SUMMARY | 2024-12-07 12:14 | XMS_ITS | Clinical Summary ---
Author Organization [facility] [address] Address [address] [place] [address] Care Team Providers Care Marble Setter Helper Name Role Phone Leon Taylor MD Primary Care Prov ider Bhavesh Valdez MD Unavailable [phone] Nolan Herron MD Unavailable [phone] Allergies No known active allergies Medications [...] (05/25/2019): Added automatically from request for surgery [id number] Assessment & Plan (08/25/2023 5:27 PM INFORMATION SYSTEMS AUDIT MANAGER): The patient is status post catheter ablation [...] with atrial fibrillation: a report of the [place] [employer]/[place] [employer] Association Task Force on Practice Guidelines [...] CABG (coronary artery bypass graft) 04/05/20 17 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 Based on this, systemic anticoagulation [...] of Atrial Fibrillation: A Report of the [place] [employer]/ [place] [employer] Association Joint Committee on Clinical Practice Guidelines. Circulation 2022;148: e42 Class IIA: In patients with AF, a moderate to high risk of stroke (CKM6CH1-QHUg score >=2), and a contraindication to long-term oral anticoagulation due to a nonreversible cause, percutaneous LAAO (pLAAO) is reasonable Hypertension 10/15/2014 Chronic coronary artery disease 09/30/2014 Resolved Problems Problem Noted Date Diagnosed Date Resolved Date A-fib 02/07/2024 03/21/2024 Paroxysmal atrial fibrillation (CMS/HCC) 03/30/2019 06/29/2022 Overview (03/30/2019): Added automatically from request for surgery [id number] Atrial fibrillation (CMS/HCC) [I48.91] 02/16/2017 06/29/2022 Encounters Date Type Department Care Team Description 12/03/2024 Results Follow-Up [facility] Cardiology [address] [place] [phone] Veena Balderas MA 11/09/2024 3:00 PM INFORMATION SYSTEMS AUDIT MANAGER - 11/09/2024 11:59 PM INFORMATION SYSTEMS AUDIT MANAGER Hospital Encounter [facility] [address] [place] [phone] Nonrheumatic tricuspid valve regurgitation Discharge Disposition: Discharge to home or self care 11/09/2024 2:00 PM INFORMATION SYSTEMS AUDIT MANAGER - 11/09/2024 11:59 PM INFORMATION SYSTEMS AUDIT MANAGER Hospital Encounter [facility] Cardiac Testing [address] [place] [address] [address] [place] [address] Nonrheumatic tricuspid valve regurgitation Discharge Disposition: Discharge to home or self care 11/09/2024 10:27 AM INFORMATION SYSTEMS AUDIT MANAGER - 11/09/2024 11:59 PM INFORMATION SYSTEMS AUDIT MANAGER Hospital Encounter [facility] - Imaging [address] [place] [phone] Edward Mckeon MD Nonrheumatic tricuspid valve regurgitation; Abnormal result of cardiovascular function study, unspecified Discharge Disposition: Discharge to home or self care 11/09/2024 10:00 AM INFORMATION SYSTEMS AUDIT MANAGER - 11/09/2024 11:59 PM INFORMATION SYSTEMS AUDIT MANAGER Hospital Encounter [facility] [address] [place] [phone] Edward Mckeon MD Dysphagia, unspecified type Discharge Disposition: Discharge to home or self care 10/29/2024 10:00 AM INFORMATION SYSTEMS AUDIT MANAGER Office Visit [facility] Cardiology [address] [place] [address] [address], [place] [address] Edward Mckeon MD Persistent atrial fibrillation (HCC) (Primary Dx); Nonrheumatic tricuspid valve regurgitation; Abnormal result of cardiovascular function study, unspecified; Chronic coronary artery disease; Primary hypertension; Mixed hyperlipidemia 10/29/2024 Telephone [facility] Cardiology [address] [place] [address] [address], [place] [address] Edward Mckeon MD SCHEDULE TRICUSPID MARCE from Last 3 Months Immunizations Immunization Administration [...] on file Legal Sex Male 8:52 PM INFORMATION SYSTEMS AUDIT MANAGER Gender Identity Not on file Sexual Orientation Not on file Obstetrics History Last Filed Vital Signs Vital Sign Reading Time Taken Comments Blood Pressure 128/66 10/29/2024 10:11 AM INFORMATION SYSTEMS AUDIT MANAGER Pulse 92 10/29/2024 10:11 AM INFORMATION SYSTEMS AUDIT MANAGER Temperature 36.1 C (97 F) 02/07/2024 2:25 PM CDT Respiratory Rate 56 03/22/2024 8:45 AM CDT Oxygen Saturation 97% 10/29/2024 10:11 AM INFORMATION SYSTEMS AUDIT MANAGER Inhaled Oxygen Concentration - - Weight 114.3 kg (252 lb) 10/29/2024 10:11 AM INFORMATION SYSTEMS AUDIT MANAGER Height 177.8 cm (5' 10 ) 10/29/2024 10:11 AM INFORMATION SYSTEMS AUDIT MANAGER Body Mass Index 36.16 10/29/2024 10:11 AM INFORMATION SYSTEMS AUDIT MANAGER Plan of Treatment Health Maintenance Due Date Last Done Comments Colon Cancer Screening-Colonoscopy 1950 Depression Screening 1950 Hepatitis C Screening 1950 DTaP/Tdap/Td Vaccine (1 - Tdap) 1960 Hepatitis B Screening 1967 Well Visit 65+ 2014 Zoster Vaccine (2 of 3) 10/11/2015 08/16/2015 Pneumococcal vaccine 65+ (2 of 2 - PPSV23) 08/05/2018 06/10/2018 Fall Risk Assessment 02/06/2025 02/07/2024 Influenza Vaccine (Season Ended) 2025 07/26/2019, 06/10/2018, 08/27/2016, Additional history exists Medical Devices Implanted Type Area Military Pay Clerk Device Identifier Shelf Expiration Date Model / Serial / Lot [employer] Brad Device Closure 27mm Lt Watchman Flx Pro Cardiac Strl La [id number] - [id number] - [id number] Implanted:Qty: 1 on 02/07/2024 by Caleb Bonilla MD at [facility] Left Atrial Appendage Occluder [employer] Brad 12/07/2026 [id number] / [id number] / [id number] [employer] Vascade Mvp 6-12fr Venous Closure [id number] - [id number] - [id number] Implanted:Qty: 1 on 02/07/2024 by Caleb Bonilla MD at [facility] [employer] 11/23/2025 [id number] / [id number] / [id number] Procedures Procedure Name Priority Date/Time Associated Diagnosis Comments PULMONARY FUNCTION TEST (PFT) Routine 11/09/2024 3:58 PM INFORMATION SYSTEMS AUDIT MANAGER Nonrheumatic tricuspid valve regurgitation TRANSTHORACIC ECHO (TTE) COMPLETE W DOPPLER/CF W CONTRAST Routine 11/09/2024 3:43 PM INFORMATION SYSTEMS AUDIT MANAGER Nonrheumatic tricuspid valve regurgitation FL ESOPHAGRAM, DOUBLE CONTRAST Schedule Routine, Read Routine (OP Routine) 11/09/2024 12:16 PM INFORMATION SYSTEMS AUDIT MANAGER Dysphagia, unspecified type CT TAVR Schedule Routine, Read Routine (OP Routine) 11/09/2024 11:50 AM INFORMATION SYSTEMS AUDIT MANAGER Nonrheumatic tricuspid valve regurgitation Abnormal result of cardiovascular function study, unspecified POCT CREATININE FOR CONTRAST EVALUATION Routine 11/09/2024 10:46 AM INFORMATION SYSTEMS AUDIT MANAGER COMPREHENSIVE METABOLIC PANEL Routine 11/06/2024 11:05 AM INFORMATION SYSTEMS AUDIT MANAGER Nonrheumatic tricuspid valve regurgitation CBC WITH AUTO DIFFERENTIAL Routine 11/06/2024 11:05 AM INFORMATION SYSTEMS AUDIT MANAGER Nonrheumatic tricuspid valve regurgitation from Last 3 Months Results * Pulmonary Function Test - (11/09/2024 3:58 PM INFORMATION SYSTEMS AUDIT MANAGER) Anatomical Region Laterality Modality PFT 11/09/2024 3:56 PM INFORMATION SYSTEMS AUDIT MANAGER Narrative 11/29/2024 4:32 PM CDT Table formatting from the original result was not included. [facility] BO[facility] CERTIFIED IN PULMONARY, CRITICAL CARE, AND SLEEP MEDICINE Merissa Jarrell MD [address] [place] [address] [id number] [place] [address] MD Chaz Ching MD Office [phone] Dorian Christie MD PULMONARY FUNCTION TESTING 6 [...] Certified in Pulmonary and Critical Care Medicine [phone] Please note that our PFT lab has [...] W DOPPLER/CF W CONTRAST (11/09/2024 3:43 PM INFORMATION SYSTEMS AUDIT MANAGER) Anatomical Region Laterality Modality Ultrasound 11/09/2024 2:03 PM INFORMATION SYSTEMS AUDIT MANAGER Narrative 11/09/2024 5:48 PM INFORMATION SYSTEMS AUDIT MANAGER [facility] [address] [place] [address] ECHOCARDIOGRAM Patient Name: JUSTUS RODRIGUEZ : 1950 (74y 6m) Gender: M Study Date: 11/09/2024 02:03:35 PM Ht(Inch): 70 Wt(Lb): 251.99 BSA: 2.38 Training And Development Rep: Location: 210 OPT Order Provider: EDWARD MCKEON [...] By: Edward Mckeon MD 11/09/2024 5:47:59 PM INFORMATION SYSTEMS AUDIT MANAGER Procedure Note Edward Mckeon MD - 11/09/2024 [facility] [address] [place] [address] ECHOCARDIOGRAM Patient Name: JUSTUS RODRIGUEZ : 1950 (74y 6m) Gender: M Study Date: 11/09/2024 02:03:35 PM Ht(Inch): 70 Wt(Lb): 251.99 BSA: 2.38 Training And Development Rep: Location: 210 OPT Order Provider: EDWARD MCKEON [...] By: Edward Mckeon MD 11/09/2024 5:47:59 PM INFORMATION SYSTEMS AUDIT MANAGER Edward Mckeon MD CV ECHO PROCEDURES Final Result * FL Esophagram, Double Contrast (11/09/2024 12:16 PM INFORMATION SYSTEMS AUDIT MANAGER) Anatomical Region Laterality Modality Body N/A Radio Fluoroscop y 11/09/2024 1:16 PM INFORMATION SYSTEMS AUDIT MANAGER Impressions 11/09/2024 1:51 PM INFORMATION SYSTEMS AUDIT MANAGER 1. Trace laryngeal penetration. No evidence of [...] Anil Randolph M.D. Narrative 11/09/2024 1:51 PM INFORMATION SYSTEMS AUDIT MANAGER EXAMINATION: DOUBLE CONTRAST BARIUM ESOPHAGRAM 11/09/2024. HISTORY: [...] by: Anil Randolph M.D. Edward Mckeon MD IMG FLUOROSCOPY PROCEDURES Final Result * CT TAVR (11/09/2024 11:50 AM INFORMATION SYSTEMS AUDIT MANAGER) Anatomical Region Laterality Modality Chest N/A Computed Tomogra phy 11/09/2024 2:02 PM INFORMATION SYSTEMS AUDIT MANAGER Impressions 11/09/2024 3:56 PM INFORMATION SYSTEMS AUDIT MANAGER 1. Measurements as above 2. Left atrial [...] Popeye Becker M.D. Narrative 11/09/2024 3:56 PM INFORMATION SYSTEMS AUDIT MANAGER EXAMINATION: Heart CT and CTA abdomen and [...] creatinine for contrast evaluation (11/09/2024 10:46 AM INFORMATION SYSTEMS AUDIT MANAGER) Pathologist [facility] Creatinine, POC 2.0(A) 0.6 - 1.5 mg/dL Comment:eGFR: 35 Blood 11/09/2024 10:4 6 AM INFORMATION SYSTEMS AUDIT MANAGER Edward Mckeon MD POINT OF CARE TEST ORDERABLES Fi nal Result * (ABNORMAL) CBC with auto differential (11/06/2024 11:05 AM INFORMATION SYSTEMS AUDIT MANAGER) Pathologist [facility] WBC 1.9(L) 3.8 - 10.8 Thousand/u L [...] [facility] Blood 11/06/2024 11:0 5 AM INFORMATION SYSTEMS AUDIT MANAGER 11/06/2024 11:05 AM INFORMATION SYSTEMS AUDIT MANAGER us Edward Mckeon MD LAB BLOOD ORDERABLES Final Resul t [facility] [address] [place] [address] * (ABNORMAL) Comprehensive metabolic panel (11/06/2024 11:05 AM INFORMATION SYSTEMS AUDIT MANAGER) Glucose 102(H) 65 - 99 mg/dL [facility] [...] [facility] Blood 11/06/2024 11:0 5 AM INFORMATION SYSTEMS AUDIT MANAGER 11/06/2024 11:05 AM INFORMATION SYSTEMS AUDIT MANAGER us Edward Bony MALLOY LAB BLOOD ORDERABLES Final Resul t [facility] [address] [place] [address] from Last 3 Months Insurance [facility] MEDICARE MEDICARE MEDICARE COMMERCIAL GENERIC [facility] [place] [address] MEDICARE [facility] Address: [address] [address] [place] [address] [facility] Advance Directives For more information, please contact: [phone] * Full Code (Latest Code Status on File) Date Activated Date Inactivated Comments 2019 10:44 AM 04/27/2019 5:09 PM Care Teams Marble Setter Helper Relationship Specialty Start Date End Date Leon Taylor MD [address] [place] [address] PCP - General 12/03/16 Bhavesh Valdez MD [address] [address] Consulting Physician Cardiology 08/26/23 Nolan Herron MD [address] [address] Referring Physician Hematology 08/26/23
--- OUTSIDE RECORDS SUMMARY | 2024-12-07 12:14 | XMS_ITS | Encounter Summary ---
Author Organization [facility] Healthcare Address [address] [place] [address] Care Team Providers Care Item Processor Name Role Phone Leon Taylor MD Primary Care Prov ider Bhavesh Valdez MD Unavailable [phone] Nolan Herron MD Unavailable [phone] Encounter Details Date Type Department Care Team (Late st Contact Info) Description 12/03/2024 Results Follow-Up [facility] Medical Group Cardiology [address] [place] [address] Veena Balderas MA Social History Tobacco Use Types Packs/Day Years Used Date Smoking Tobacco: Never Smokeless Tobacco: Never Alcohol Use Standard Drinks/Week Comments No 0 [...] on file Legal Sex Male 8:52 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 [address] [place] [id number] Referring Physician Hematology 08/26/23 documented as of this encounter
--- OUTSIDE RECORDS SUMMARY | 2024-12-07 12:14 | XMS_ITS | Encounter Summary ---
Author Organization [facility] Address [address] [place] [place] [address] Care Team Providers Care Ladle Liner Helper Name Role Phone Leon Taylor MD Primary Care Provider + Encounter Details Date Type Department Care Team (Late st Contact Info) Description 05/10/2023 Lab Requisition [facility] - Pathology Lab [address] [place] [phone] Dorian Flynn MD [address] [address] Illness, unspecified Social History Tobacco [...] Report Bone Marrow Patholog y Report Case: [id number] Authorizing Provider: Dorian Flynn MD Collected: 05/05/2023 09:15 AM Ordering Location: [facility] Care Pathology Lab Received: 05/10/2023 09:44 AM [...] blood smear: - Pancytopenia 05/10/2023 5:09 PM [facility] Comment Correlation with clinical findings, imaging and cytogenetic/molecular testing is required. 05/10/2023 5:09 PM [facility] Peripheral Smear Description RBC: normocytic and hypochromic anemia WBC: marked leukopenia with absolute lymphopenia, no circulating blasts seen Platelets: decreased in number 05/10/2023 5:09 PM [facility] Bone Marrow Aspirate Specimen quality: adequate Spicules: present Trilineage Hematopoiesis: present Myeloid:Erythroid ratio: normal Myeloid Maturation: normal Erythroid Maturation: normal Megakaryocyte morphology:normal Storage iron (by special stain): decreased Sideroblastic iron (by special stain): absent 05/10/2023 5:09 PM [facility] Bone Marrow Core Biopsy [...] (by special stain): absent 05/10/2023 5:09 PM [facility] Flow Cytometry Summary Bone marrow, flow cytometric immunophenotypic analysis ([id number]): - No evidence of non-Hodgkin lymphoma or high-grade myeloid neoplasm. 05/10/2023 5:09 PM [facility] Clinical History 73 year-old male with pancytopenia. 05/10/2023 5:09 PM [facility] Pathologist Location at [facility] 05/10/2023 5:09 PM [facility] Disclaimer The performance characteristics of all immunohistochemical and indirect immunofluorescence stains (if any) cited in this report were determined by the Histopathology Laboratory of [facility]. Some of these tests were developed by [...] attending (teaching) pathologist. 05/10/2023 5:09 PM CDT [facility] Embedded Images 05/10/2023 5:09 PM CDT [facility] Pathology/Cytology BONE MARROW SPECIMEN / Unknown 05/05/2023 9:15 AM CDT 05/10/2023 9:44 AM CDT Miscellaneous samples (specimen) BONE MARROW SPECIMEN / Unknown 05/05/2023 9:15 AM CDT 05/10/2023 9:44 AM CDT Dorian Flynn MD LAB - PATHOLOGY/CYTO LOGY ORDERABLES Performing Organization Address City/State/[facility] Co de Phone Number [facility] [address] [phone] documented in this encounter Visit Diagnoses Diagnosis Illness, unspecified documented in this encounter Care Teams Ladle Liner Helper Relationship Specialty Start Date End Date Leon Taylor MD [address] [address] PCP - General 02/28/19 documented as of this encounter
== END 2024-12-07 12:11 | disposition home or self-care (01) ==
LOC: ANHIMG 12:12
PROVIDERS: PCP Family Medicine Adolescent Medicine; Visit Provider Internal Medicine Hematology & Oncology
DX: N63.13 Unspecified lump in the right breast, lower outer quadrant (principal)
CPT/HCPCS: 76641; 77062; 77066; G0279

== ENCOUNTER 2024-12-18 11:29 | Inpatient (IN) | payer MEDICARE, SELFPAY ==
--- NOTE | ~2024-12-18 | XR_ITS ---
Clinical Indication: Shortness of breath PA and lateral views of the chest: Comparison: 06/27/2021 Findings: There is central congestive change with mild bibasilar pulmonary edema. Cardiomediastinal silhouette is stable. Bones and soft tissues are unremarkable. Impression: Central congestive change and mild bibasilar pulmonary edema. Cardiomegaly. Reviewed, dictated and finalized at location . Impression: Central congestive change and mild bibasilar pulmonary edema. Cardiomegaly.
--- NOTE | 2024-12-18 11:30 | ECG_ITS ---
Test Date: 2024-12-18 11:44:52 Measurements Intervals [facility] Rate: 89 P: 0 SD: 0 QRS: 86 QRSD: 106 T: -45 QT: 372 QTc: 453 Interpretive Statements ATRIAL FIBRILLATION DELAYED PRECORDIAL R/S TRANSITION BORDERLINE ST-T WAVE ABNORMALITY- INF/LAT LEADS BASELINE ARTIFACT- I, II, III, AVR, AVL, AVF, V1, V4-V5 ABNORMAL ECG No previous ECG available for comparison Electronically Signed On 12-18-2024 11:58:42 CDT by Gentry Durand D.O.
[2024-12-18 11:47] VITALS: BP 136/72; PULSE 83; PULSE 87; RESP 20; O2SAT 94; O2SAT 98
--- NOTE | 2024-12-18 11:50 | PC.NURSE ---
Pt reports seeing Dr. Landaverde in office today and sending him to ER for eval. Pt states abdominal and BLE edema worsening over the past 6 weeks. Drainage noted to LLE. Pt states he has been compliant with his diuretic.
[2024-12-18 12:05] LABS: Basophils Percent Auto 0.5 % (0.2-1.2); Eosinophils Absolute Auto 0.1 K/mm3 (0-0.3); Eosinophils Percent Auto 3.6 % (0-4.4); Hematocrit 32.7 % (42.0-52.0); Hemoglobin 9.7 g/dL (14.0-18.0); Immature Platelet Fraction Pct 1.3 % (0.9-11.2); Lymphocytes Absolute Auto 0.33 K/mm3 (0.9-3.2); Lymphocytes Percent Auto 16.9 % (18.3-44.2); Mean Corpuscular HGB Conc 29.7 g/dl (32-36); Mean Corpuscular Hemoglobin 26.8 pg (26-34); Mean Corpuscular Volume 90.3 fl (80-100); Mean Platelet Volume 9.4 fl (7.4-10.4); Monocytes Absolute Auto 0.2 K/mm3 (0.1-0.6); Monocytes Percent Auto 8.2 % (2.6-8.5); Neutrophils Absolute Auto 1.4 K/mm3 (1.3-6.7); Neutrophils Percent Auto 70.8 % (45.5-73.1); Platelet Count Result 104 k/mm3 (150-375); Red Blood Count 3.62 M/mm3 (4.6-6.20); Red Cell Distribution Width 17.2 % (11.5-14.5)
[2024-12-18 12:13] LABS: Alanine Aminotransferase 14 U/L (6-50); Albumin Level 4.1 g/dL (3.5-5.1); Alkaline Phosphatase 60 U/L (38-126); Anion Gap 10 mmol/L (4-12); Aspartate Amino Transferase 20 U/L (17-59); Bilirubin,Total 0.8 mg/dL (0.2-1.3); Blood Urea Nitrogen 32 mg/dL (9-20); Calcium 8.6 mg/dL (8.4-10.2); Carbon Dioxide 24 mmol/L (22-30); Chloride 103 mmol/L (98-107); Estimated CRCL calculation 44 ml/min; Estimated Glomerular Filt Rate 39; Glucose 105 mg/dL (65-110); Potassium 4.5 mmol/L (3.4-5.0); Sodium 137 mmol/L (137-145)
--- NOTE | 2024-12-18 12:28 | PC.NURSE ---
lab called to add on ordered magnesium and bnp.
[2024-12-18 12:43] LABS: Magnesium 2.3 mg/dL (1.6-2.3)
--- OUTSIDE RECORDS SUMMARY | 2024-12-18 12:45 | XMS_ITS | Clinical Summary ---
Author Organization [facility] Address [address] [facility] [place] [address] Care Team Providers Care Termite Exterminator Name Role Phone Leon Taylor MD Primary Care Provider + Source Comments [facility],non-owned Affiliates and Associated Physician Practices is amultiple site organization consisting of ambulatory clinics and hospital sitesin [place], [place], [place] and [place]. This disclosure is being madepursuant to the Care Everywhere program and may not contain all information available regarding this patient. Last updated 18.[facility] [employer] Social History Tobacco Use Types Packs/Day Years Used Date Smoking Tobacco: Never Assessed Sex and Gender Information Value Date Recorded Sex Assigned at Not on file Legal Sex Male 4:03 AM CDT Gender Identity Not on file [...] VACCINE ( - 2023-2 5 season) 2024 DEPRESSION SCREENING 09/05/2024 INFLUENZA VACCINE (Season Ended) 2025 HEPATITIS B VACCINE Aged Out No longe [...] on patient's age to complete this topic Insurance MEDICARE MEDICARE Member Subscriber Plan / Payer (Ef fective for All Dates) Name:Kamron Rodriguez Member ID:[id number] Relation to Subscriber:Self Name:Kamron Rodriguez Subscriber ID:[id number] Payer ID:Not on file Group ID:Not on file Type:Medicare Address: [place] [id number] MEDICARE SUPPLEMENT PAYOR GENERIC MEDICARE MEDICARE SUPPLEMENT PAYOR GENERIC * Guarantor: KAMRON RODRIGUEZ Account Type Relation to Patient Date of Phone Billing Address Personal/[place] [address] MEDICARE MEDICARE SUPPLEMENT PAYOR GENERIC Care Teams Termite Exterminator Relationship Specialty Start Date End Date Leon Taylor MD NPI: [id number] [place] [address] PCP - General 02/28/19
--- OUTSIDE RECORDS SUMMARY | 2024-12-18 12:45 | XMS_ITS | Encounter Summary ---
Author Organization [facility] Address [address] [place] [address] Care Team Providers Care Chief Technician X Ray Name Role Phone Leon Taylor MD Primary Care Provider + Encounter Details Date Type Department Care Team (Late st Contact Info) Description 05/10/2023 Lab Requisition [facility] - Pathology Lab [address] [place] [id number] Dorian Flynn MD [address] [id number] Illness, unspecified Social History Tobacco [...] Report Bone Marrow Patholog y Report Case: [id number] Authorizing Provider: Dorian Flynn MD Collected: 05/05/2023 09:15 AM Ordering Location: [facility] Care Pathology Lab Received: 05/10/2023 09:44 AM Pathologist: Liliana Jackson MD Specimens: A) - Bone Marrow Clot B) - Bone Marrow Core, Right posterior hip 05/10/2023 5:09 PM CDT [facility] Final Diagnosis Bone marrow, aspirate, clot section, and core biopsy: - Hypercellular bone marrow for age (50% cellularity) - Trilineage hematopoiesis with no significant dyspoiesis - Decreased iron storage Peripheral blood smear: - Pancytopenia 05/10/2023 5:09 PM [facility] Comment Correlation with clinical findings, imaging and cytogenetic/molecular testing is required. 05/10/2023 5:09 PM [facility] Peripheral Smear Description RBC: normocytic and hypochromic anemia WBC: marked leukopenia with absolute lymphopenia, no circulating blasts seen Platelets: decreased in number 05/10/2023 5:09 PM [facility] Bone Marrow Aspirate Specimen quality: adequate Spicules: present Trilineage Hematopoiesis: present Myeloid:Erythroid ratio: normal Myeloid Maturation: normal Erythroid Maturation: normal Megakaryocyte morphology:normal Storage iron (by special stain): decreased Sideroblastic iron (by special stain): absent 05/10/2023 5:09 PM [facility] Bone Marrow Core Biopsy and [...] (by special stain): absent 05/10/2023 5:09 PM [facility] Flow Cytometry Summary Bone marrow, flow cytometric immunophenotypic analysis ([id number]): - No evidence of non-Hodgkin lymphoma or high-grade myeloid neoplasm. 05/10/2023 5:09 PM [facility] Clinical History 73 year-old male with pancytopenia. 05/10/2023 5:09 PM [facility] Pathologist Location at [facility] 05/10/2023 5:09 PM [facility] Disclaimer The performance characteristics of all immunohistochemical and indirect immunofluorescence stains (if any) cited in this report were determined by the Histopathology Laboratory of [facility]. Some of these tests were developed [...] attending (teaching) pathologist. 05/10/2023 5:09 PM CDT [facility] Embedded Images 05/10/2023 5:09 PM CDT [facility] Pathology/Cytology BONE MARROW SPECIMEN / Unknown 05/05/2023 9:15 AM CDT 05/10/2023 9:44 AM CDT Miscellaneous samples (specimen) BONE MARROW SPECIMEN / Unknown 05/05/2023 9:15 AM CDT 05/10/2023 9:44 AM CDT Dorian Flynn MD LAB - PATHOLOGY/CYTOLOGY ORDERAB LES Final Result [facility] [address] [phone] documented in this encounter Visit Diagnoses Diagnosis Illness, unspecified documented in this encounter Care Teams Chief Technician X Ray Relationship Specialty Start Date End Date Leon Taylor MD [address] [address] PCP - General 02/28/19 documented as of this encounter
--- OUTSIDE RECORDS SUMMARY | 2024-12-18 12:45 | XMS_ITS | Clinical Summary ---
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 36 tablet 3 2 Active Additional Information Patient not taking.Reported on 12/18/2024 ferrous sulfate 325 mg (65 mg of [...] 2 (two) times a day 5 Active losartan (COZAAR) 50 mg tablet Take 1 tablet (50 mg total) by mouth daily Active Active Problems Problem Noted Date Diagnosed Date Nonrheumatic tricuspid valve regurgitation 08/22 Severe obesity 08/22/2024 Presence of Watchman left atrial appendage closu re device 03/21/2024 02/07/2024 Persistent atrial fibrillation 05/25/2019 Overview (05/25/2019): Added automatically from request for surgery [id number] Assessment & Plan (08/25/2023 5:27 PM CHRISTMAS TREE GROWER): The patient is status post catheter ablation [...] with atrial fibrillation: a report of the [place] [employer]/[place] [employer] Association Task Force on Practice Guidelines [...] CABG (coronary artery bypass graft) 04/05/20 17 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 Based on this, systemic anticoagulation [...] for additional screening and preparations. From: Mee VANCE, Marquis MK, Love AL, et al. 2022 CC/AHA/ACCP/HRS Guideline for the Diagnosis and Management of Atrial Fibrillation: A Report of the [place] [employer]/ [place] [employer] Association Joint Committee on Clinical Practice Guidelines. Circulation 202;148: e42 Class IIA: In patients with AF, a moderate to high risk of stroke ([id number] score >=2), and a contraindication to long-term oral anticoagulation due to a nonreversible cause, percutaneous LAAO (pLAAO) is reasonable Hypertension 10/15/2014 Chronic coronary artery disease 09/30/2014 Resolved Problems Problem Noted Date Diagnosed Date Resolved Date A-fib 02/07/2024 03/21/2024 Paroxysmal atrial fibrillation (CMS/HCC) 03/30/2019 06/29/2022 Overview (03/30/2019): Added automatically from request for surgery [id number] Atrial fibrillation (CMS/HCC) [I48.91] 02/16/2017 06/29/2022 Encounters Date Type Department Care Team Description 12/18/2024 11:00 AM CDT Office Visit [facility] Cardiology [address] [place] [address] [place] [phone] Liliana Bynum NP Arrived 12/17/2024 Telephone [facility] Cardiology [address] [place] [address] [address] [place] [phone] Bhavesh Valdez MD 12/13/2024 12:06 PM CDT Anesthesia Event [facility] [address] [phone] Denia Olivares MD Fitterer, Morgan Elisabeth, CRNA 12/13/2024 10:24 AM CDT - 12/13/2024 11:59 PM CDT Hospital Encounter [facility] [address] [phone] Bhavesh Washington MD Nonrheumatic tricuspid valve regurgitation Discharge Disposition: Discharge to home or self care 12/10/2024 Telephone [facility] Cardiology [address] [place] [phone] Edward Mckeon MD MARCE Tricuspid Scheduling 12/03/2024 Results Follow-Up [facility]iology [address] [place] [address] [address] [address] Veena Balderas MA 11/09/2024 3:00 PM [facility] - 11/09/2024 11:59 PM [facility] Hospital Encounter [facility] [address] [place] [phone] Nonrheumatic tricuspid valve regurgitation Discharge Disposition: Discharge to home or self care 11/09/2024 2:00 PM [facility] TREE GROWER - 11/09/2024 11:59 PM [facility] Hospital Encounter [facility] OP Cardiac Testing [address] [place] [address] [address] [place] [address] Nonrheumatic tricuspid valve regurgitation Discharge Disposition: Discharge to home or self care 11/09/2024 10:27 AM [facility] - 11/09/2024 11:59 PM [facility] Hospital Encounter [facility] - Imaging [address] [place] [phone] Edward Mckeon MD Nonrheumatic tricuspid valve regurgitation; Abnormal result of cardiovascular function study, unspecified Discharge Disposition: Discharge to home or self care 11/09/2024 10:00 AM [facility] GROWER - 11/09/2024 11:59 PM [facility] Hospital Encounter [facility] - [facility] [address] [place] [phone] Edward Mckeon MD Dysphagia, unspecified type Discharge Disposition: Discharge to home or self care 10/29/2024 10:00 AM CHRISTMAS TREE GROWER Office Visit [facility] Medical [facility] Cardiology [address] [place] [phone] Edward Mckeon MD Persistent atrial fibrillation (HCC) (Primary Dx); Nonrheumatic tricuspid valve regurgitation; Abnormal result of cardiovascular function study, unspecified; Chronic coronary artery disease; Primary hypertension; Mixed hyperlipidemia 10/29/2024 Telephone [facility] Cardiology [address] [place] [phone] Edward Mckeon MD SCHEDULE TRICUSPID MARCE from Last 3 Months Immunizations Immunization Administration Dates Next Due Influenza, Trivalent, High D ose, Split, Preservative Free, Intramuscular 07/26/2019 Surgical History Surgery Date Site/Laterality Comments CORONARY ARTERY BYPASS GRAFT REPLACEMENT TOTAL KNEE BILATERAL HERNIA REPAIR CARDIAC CATHETERIZATION Medical History Medical History Date Comments Atrial fibrillation (HCC) Shortness of breath Hyperlipidemia Hypertension Coronary artery disease CHF (congestive heart failure) (HCC) Family History Medical History Relation Name Comments [...] on file Legal Sex Male 8:52 PM [facility] TREE GROWER Gender Identity Not on file Sexual Orientation Not on file Obstetrics History Last Filed Vital Signs Vital Sign Reading Time Taken Comments Blood Pressure 120/62 12/18/2024 11:02 AM CDT Pulse 66 12/18/2024 11:02 AM CDT Temperature 36.1 C (97 F) 02/07/2024 2:25 PM CDT Respiratory Rate 25 12/13/2024 1:01 PM CDT Oxygen Saturation 98% 12/18/2024 11: 02 AM CDT Inhaled Oxygen Concentration - - Weight 123.7 kg (272 lb 9.6 oz) 025 11:02 AM CDT Height 177.8 cm (5' 10 ) 12/18/2024 11: 02 AM CDT Body Mass Index 39.11 12/18/2024 11:02 AM CDT Plan of Treatment Health Maintenance Due Date [...] history exists Medical Devices Implanted Type Area Geology Professor Device Identifier Shelf Expiration Date Model / Serial / Lot [employer] Brad Device Closure 27mm Lt Watchman Flx Pro Cardiac Strl [place] [id number] - [id number] - [id number] Implanted:Qty: 1 on 02/07/2024 by Caleb Bonilla MD at [facility] Left Atrial Appendage Occluder [employer] Brad 12/07/2026 [id number] / [id number] / [id number] [employer] Vascade Mvp 6-12fr Venous Closure [id number] - [id number] - [id number] Implanted:Qty: 1 on 02/07/2024 by Caleb Bonilla MD at [facility] [employer] 11/23/2025 [id number] / [id number] / [id number] Procedures Procedure Name Priority Date/Time Associated Diagnosis Comments TRANSESOPHAGEAL ECHO (MARCE) W DOPPLER/CF WO CONTRAST Routine 12/13/2024 12:37 PM CDT Nonrheumatic tricuspid valve regurgitation PROTIME-INR Routine 12/11/2024 1:48 PM CDT Nonrheumatic tricuspid valve regurgitation Abnormal coagulation profile CBC WITH AUTO DIFFERENTIAL Routine 12/11/2024 1:48 PM CDT Nonrheumatic tricuspid valve regurgitation BASIC METABOLIC PANEL Routine 12/11/2024 1:48 PM CDT Nonrheumatic tricuspid valve regurgitation PULMONARY FUNCTION TEST (PFT) Routine 11/09/2024 3:58 PM CHRISTM[facility] TREE GROWER Nonrheumatic tricuspid valve regurgitation TRANSTHORACIC ECHO (TTE) COMPLETE W DOPPLER/CF W CONTRAST Routine 11/09/2024 3:43 PM [facility]STM[facility] TREE GROWER Nonrheumatic tricuspid valve regurgitation FL ESOPHAGRAM, DOUBLE CONTRAST Schedule Routine, Read Routine (OP Routine) 11/09/2024 12:16 PM [facility]STM[facility] TREE GROWER Dysphagia, unspecified type CT TAVR Schedule Routine, Read Routine (OP Routine) 11/09/2024 11:50 AM [facility]STM[facility] TREE GROWER Nonrheumatic tricuspid valve regurgitation Abnormal result of cardiovascular function study, unspecified POCT CREATININE FOR CONTRAST EVALUATION Routine 11/09/2024 10:46 AM [facility] TREE GROWER COMPREHENSIVE METABOLIC PANEL Routine 11/06/2024 11:05 AM CHRISTM[facility] TREE GROWER Nonrheumatic tricuspid valve regurgitation CBC WITH AUTO DIFFERENTIAL Routine 11/06/2024 11:05 AM CHRISTM[facility] TREE GROWER Nonrheumatic tricuspid valve regurgitation from Last 3 Months Results * TRANSESOPHAGEAL ECHO (MARCE) W DOPPLER/CF WO CONTRAST (12/13/2024 12:37 PM CDT) LV EF 60 % CONS SCIMAGE Anatomical Region Laterality Modality Echocardiography 12/13/2024 12:0 6 PM CDT Narrative 12/13/2024 1:19 PM CDT [facility] [address] [place] [address] TRANSESOPHAGEAL ECHOCARDIOGRAM Patient Name: JUSTUS RODRIGUEZ : 1950 (74y 7m) Gender: M Study Date: 12/13/2024 12:06:09 PM Ht(Inch): 70 Wt(Lb): 252.01 BSA: 2.38 Customer Engagement Specialist: FABI Location: [facility] Order Provider: EDWARD MCKEON BMI: 36.16 BP: 128/66 Ref Provider: EDWARD MCKEON - PROCEDURES: Transesophageal Echo Report: Transesophageal echocardiogram including 2D imaging, spectral doppler and color doppler was performed bedside. The procedure was monitored with automatic blood pressure monitoring, ECG tracings, and pulse oximetry. Sedation was achieved by anesthesia using Propofol IV. The transesophageal probe was placed in the esophagus posterior to the heart without any complications. The patient tolerated the procedure well. INDICATIONS: I36.1 Nonrheumatic tricuspid (valve) insufficiency. MEASUREMENTS: 2D/MM Value Range Estimated EF 60 % 2D/MM Value Range - FINDINGS: BP: Blood pressure: 128/66 mmHg. Left Ventricle: Normal global and regional left ventricular systolic function. Ejection Fraction is estimated to be 60 %. Normal left ventricular cavity size. Right Ventricle: Mild-moderate enlargement of the right ventricle. Moderate right ventricular hypokinesis. Left Atrium: There is moderate enlargement of the left atrium. LA Appendage: There is a left atrial appendage occlusion device in-situ. It appears well-seated. There is no thrombus on the external surface of the device. There is no color Doppler flow around the device. Right Atrium: There is marked enlargement of the right atrium. Atrial septum bowed toward the left, consistent with elevated right atrial pressures. Atrial Septum: Normal atrial septum. Saline contrast study negative for R to L shunt. Mitral Valve: Normal appearance of the mitral valve. Trace mitral valve regurgitation. There is no evidence for significant mitral stenosis. Aortic Valve: Aortic cusps appear mildly calcified. Trileaflet aortic valve. There is no aortic regurgitation. No aortic stenosis. Tricuspid Valve: Normal appearance of the tricuspid valve. There is mild pulmonary hypertension. There is torrential tricuspid regurgitation. Pulmonic Valve: Grossly normal appearing pulmonic valve. No pulmonic stenosis. No evidence of pulmonic regurgitation. Pericardium: No pericardial effusion. Aorta: Normal aortic root size. Normal size descending thoracic aorta. Ascending aorta is normal in size. Pulmonary Artery: Not well visualized. CONCLUSIONS: 1. Normal global and regional left ventricular systolic function. Ejection Fraction is estimated to be 60 %. Normal left ventricular cavity size. 2. Mild-moderate enlargement of the right ventricle. Moderate right ventricular hypokinesis. 3. There is moderate enlargement of the left atrium. 4. There is marked enlargement of the right atrium. Atrial septum bowed toward the left, consistent with elevated right atrial pressures. 5. Normal appearance of the tricuspid valve. There is mild pulmonary hypertension. There is torrential tricuspid regurgitation. Electronically Signed By: Bhavesh Washington MD mobap 12/13/2024 1:18:57 PM CDT Procedure Note Bhavesh Washington MD - 12/13/2024 [place] [address] [place] [address] TRANSESOPHAGEAL ECHOCARDIOGRAM Patient Name: JUSTUS RODRIGUEZ : 1950 (74y 7m) Gender: M Study Date: 12/13/2024 12:06:09 PM Ht(Inch): 70 Wt(Lb): 252.01 BSA: 2.38 Customer Engagement Specialist: FABI Location: [facility] Order Provider: EDWARD MCKEON BMI: 36.16 BP: 128/66 Ref Provider: EDWARD MCKEON - PROCEDURES: Transesophageal Echo Report: Transesophageal echocardiogram including 2Dimaging, spectral doppler and color doppler was performed bedside. The procedurewas monitored with automatic blood pressure monitoring, ECG tracings, and pulseoximetry. Sedation was achieved by anesthesia using Propofol IV. The transesophageal probe wasplaced in the esophagus posterior to the heart without any complications. The patienttolerated the procedure well. INDICATIONS: I36.1 Nonrheumatic tricuspid (valve) insufficiency. MEASUREMENTS: 2D/MM Value Range Estimated EF 60 % 2D/MM Value Range - FINDINGS: BP: Blood pressure: 128/66 mmHg. Left Ventricle: Normal global and regional left ventricular systolicfunction. Ejection Fraction is estimated to be 60 %. Normal left ventricular cavity size. Right Ventricle: Mild-moderate enlargement of the right ventricle.Moderate right ventricular hypokinesis. Left Atrium: There is moderate enlargement of the left atrium. LA Appendage: There is a left atrial appendage occlusion device in-situ.It appears well-seated. There is no thrombus on the external surface of the device.There is no color Doppler flow around the device. Right Atrium: There is marked enlargement of the right atrium. Atrialseptum bowed toward the left, consistent with elevated right atrial pressures. Atrial Septum: Normal atrial septum. Saline contrast study negative for Rto L shunt. Mitral Valve: Normal appearance of the mitral valve. Trace mitral valveregurgitation. There is no evidence for significant mitral stenosis. Aortic Valve: Aortic cusps appear mildly calcified. Trileaflet aorticvalve. There is no aortic regurgitation. No aortic stenosis. Tricuspid Valve: Normal appearance of the tricuspid valve. There is mildpulmonary hypertension. There is torrential tricuspid regurgitation. Pulmonic Valve: Grossly normal appearing pulmonic valve. No pulmonicstenosis. No evidence of pulmonic regurgitation. Pericardium: No pericardial effusion. Aorta: Normal aortic root size. Normal size descending thoracic aorta.Ascending aorta is normal in size. Pulmonary Artery: Not well visualized. CONCLUSIONS: 1. Normal global and regional left ventricular systolic function. EjectionFraction is estimated to be 60 %. Normal left ventricular cavity size. 2. Mild-moderate enlargement of the right ventricle. Moderate rightventricular hypokinesis. 3. There is moderate enlargement of the left atrium. 4. There is marked enlargement of the right atrium. Atrial septum bowedtoward the left, consistent with elevated right atrial pressures. 5. Normal appearance of the tricuspid valve. There is mild pulmonaryhypertension. There is torrential tricuspid regurgitation. Electronically Signed By: Bhavesh cole 12/13/2024 1:18:57 PM CDT us Edward Mckeon MD CV ECHO PROCEDURES Final Result * (ABNORMAL) CBC with auto differential (12/11/2024 1:48 PM CDT) [facility] WBC 2.2(L) 3.8 - 10.8 Thousand/u L [facility] RBC, POC 3.77(L) 4.20 - 5.80 Million/uL [facility] Hgb 10.1(L) 13.2 - 17.1 g/dL [facility] Hct 33.5(L) 38.5 - 50.0 % [facility] MCV 88.9 80.0 - 100.0 fL [facility] MCH 26.8(L) 27.0 - 33.0 pg [facility] MCHC 30.1(L) 32.0 - 36.0 g/dL [facility] Comment: For adults, a slight decrease in the calculated MCHC value (in the range of 30 to 32 g/dL) is most likely not clinically significant; however, it should be interpreted with caution in correlation with other red cell parameters and the patient's clinical condition. Rdw 15.4(H) 11.0 - 15.0 % [facility] Platelets 98(L) 140 - 400 Thousand/u L [facility] MPV 10.8 7.5 - 12.5 fL [facility] Neutrophils, abs 1,619 1,500 - 7,800 cells/uL [facility] Lymphocytes, abs 350(L) 850 - 3,900 cells/uL [facility] Monocyte abs 200 200 - 950 cells/uL [facility] Eosinophils, abs 20 15 - 500 cells/uL [facility] Basophils, abs 11 0 - 200 cells/uL [facility] Neutrophils 73.6 % [facility] Lymphocyte pct 15.9 % [facility] Monocytes 9.1 % [facility] Eosinophils 0.9 % [facility] Basophils 0.5 % [facility] Blood 12/11/2024 1:48 PM CDT 12/11/2024 1:48 PM CDT us Edward Mckeon MD LAB BLOOD ORDERABLES Final Resul t Performing Organization Address City/[facility]/ZIP Co de Phone Number [facility] [address] [address] [phone] * (ABNORMAL) Protime-INR (12/11/2024 1:48 PM CDT) INR 1.1 [facility] Comment: Reference Range 0.9-1.1 Moderate-intensity Warfarin Therapy 2.0-3.0 Higher-intensity Warfarin Therapy 3.0-4.0 PT 12.2(H) 9.0 - 11.5 sec [facility] Comment: For additional information, please refer to http://education.FunPuntos/faq/VUK020 (This link is being provided for informational/ educational purposes only.) Blood 12/11/2024 1:48 PM CDT 12/11/2024 1:48 PM CDT us Edward Mckeon MD LAB BLOOD ORDERABLES Final Resul t Performing Organization Address City/[facility]/ZIP Co de Phone Number [facility] [address] [place] [address] * (ABNORMAL) Basic metabolic panel (12/11/2024 1:48 PM CDT) Glucose 102(H) 65 - 99 mg/dL [facility] Comment: Fasting reference interval For someone without known diabetes, a glucose value between 100 and 125 mg/dL is consistent with prediabetes and should be confirmed with a follow-up test. BUN 33(H) 7 - 25 mg/dL [facility] Creatinine 1.65(H) 0.70 - 1.28 mg/dL [facility] eGFR 43(L) > OR = 60 mL/min/1.7 3m2 [facility] BUN/creat ratio 20 6 - 22 (calc) [facility] Sodium 135 135 - 146 mmol/L [facility] Potassium, pl 5.0 3.5 - 5.3 mmol/L [facility] Chloride 107 98 - 110 mmol/L [facility] CO2 23 20 - 32 mmol/L [facility] Calcium 8.9 8.6 - 10.3 mg/dL [facility] Blood 12/11/2024 1:48 PM CDT 12/11/2024 1:48 PM CDT us Edward Mckeon MD LAB BLOOD ORDERABLES Final Resul t [facility] [address] [address] [phone] * Pulmonary Function Test - (11/09/2024 3:58 PM [facility]STM[facility] TREE GROWER) Anatomical Region Laterality Modality PFT 11/09/2024 3:56 PM [facility]STM[facility] TREE GROWER Narrative 11/29/2024 4:32 PM CDT Table formatting from the original result was not included. [facility] BOARD CERTIFIED IN PULMONARY, CRITICAL CARE, AND SLEEP MEDICINE Merissa Jarrell MD [address] [place] [address] [id number] [place] [address] MD Chaz Ching MD Office [phone] Dorian Christie MD PULMONARY FUNCTION TESTING 6 [...] Certified in Pulmonary and Critical Care Medicine [phone] Please note that our PFT lab has [...] W DOPPLER/CF W CONTRAST (11/09/2024 3:43 PM [facility]RISTM[facility] TREE GROWER) Anatomical Region Laterality Modality Ultrasound 11/09/2024 2:03 PM [facility]RISTM[facility] TREE GROWER Narrative 11/09/2024 5:48 PM [facility]RISTM[facility] TREE GROWER [facility] [address] [place] [address] ECHOCARDIOGRAM Patient Name: JUSTUS RODRIGUEZ : 1950 (74y 6m) Gender: M Study Date: 11/09/2024 02:03:35 PM Ht(Inch): 70 Wt(Lb): 251.99 BSA: 2.38 Customer Engagement Specialist: Location: [address] Order Provider: EDWARD MCKEON [...] By: Edward Mckeon MD 11/09/2024 5:47:59 PM [facility]RISTMAS TREE GROWER Procedure Note Edward Mckeon MD - 11/09/2024 [facility] [address] [place] [address] ECHOCARDIOGRAM Patient Name: JUSTUS RODRIGUEZ : 1950 (74y 6m) Gender: M Study Date: 11/09/2024 02:03:35 PM Ht(Inch): 70 Wt(Lb): 251.99 BSA: 2.38 Customer Engagement Specialist: Location: [address] Order Provider: EDWARD MCKEON [...] By: Edward Mckeon MD 11/09/2024 5:47:59 PM [facility]RISTM[facility] TREE GROWER Edward Mckeon MD CV ECHO PROCEDURES Final Result * FL Esophagram, Double Contrast (11/09/2024 12:16 PM [facility]RISTM[facility] TREE GROWER) Anatomical Region Laterality Modality Body N/A Radio Fluoroscop y 11/09/2024 1:16 PM [facility]RISTM[facility] TREE GROWER Impressions 11/09/2024 1:51 PM [facility]STM[facility] TREE GROWER 1. Trace laryngeal penetration. No evidence of [...] Anil Randolph M.D. Narrative 11/09/2024 1:51 PM [facility]STM[facility] TREE GROWER EXAMINATION: DOUBLE CONTRAST BARIUM ESOPHAGRAM 11/09/2024. HISTORY: [...] Result * CT TAVR (11/09/2024 11:50 AM CHRISTMAS TREE GROWER) Anatomical Region Laterality Modality Chest N/A Computed Tomogra phy 11/09/2024 2:02 PM [facility]STM[facility] TREE GROWER Impressions 11/09/2024 3:56 PM [facility]STM[facility] TREE GR[facility] 1. Measurements as above 2. Left atrial [...] Popeye Becker M.D. Narrative 11/09/2024 3:56 PM [facility] T[facility] EXAMINATION: Heart CT and CTA abdomen and [...] by: Popeye Becker M.D. Edward Mckeon MD [facility] CT PROCEDURES Final Result * (ABNORMAL) POCT creatinine for contrast evaluation (11/09/2024 10:46 AM [facility]RISTM[facility] TREE GROWER) Creatinine, POC 2.0(A) 0.6 - 1.5 mg/dL Comment:eGFR: 35 Blood 11/09/2024 10:4 6 AM [facility]RISTM[facility] TREE GROWER us Edward Mckeon MD POINT OF CARE TEST ORDERABLES Fi nal Result * (ABNORMAL) CBC with auto differential (11/06/2024 11:05 AM CHRISTMAS TREE GROWER) WBC 1.9(L) 3.8 - 10.8 Thousand/u L [facility] Blood 11/06/2024 11:0 5 AM [facility]RISTM[facility] TREE GROWER 11/06/2024 11:05 AM [facility]STM[facility] TREE GROWER us Edward Mckeon MD LAB BLOOD ORDERABLES Final Resul t [place] [address] [address] [address] [phone] * (ABNORMAL) Comprehensive metabolic panel (11/06/2024 11:05 AM CHRISTMAS TREE GROWER) Glucose 102(H) 65 - 99 mg/dL [facility] Blood 11/06/2024 11:0 5 AM [facility]RISTM[facility] TREE GROWER 11/06/2024 11:05 AM [facility]RISTM[facility] TREE GROWER us Edward Mckeon MD LAB BLOOD ORDERABLES Final Resul t [facility] [address] [address], [place] [phone] from Last 3 Months Insurance [facility] MEDICARE [facility] Address: [address] [address] [place] [address] MEDICARE MEDICARE COMMERCIAL GENERIC Member Subscriber Plan / Payer ( fective 2019-Present) Name:Justus Rodriguez Relation to Subscriber:Self Name:Justus Rodriguez Payer ID:[id number] Group ID:[id number] Type:COMMERCIAL Address: [address] MEDICARE [employer] Advance Directives For more information, please contact: [phone] * Full Code (Latest Code Status on File) Date Activated Date Inactivated Comments 2019 10:44 AM 04/27/2019 5:09 PM Care Teams 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
--- OUTSIDE RECORDS SUMMARY | 2024-12-18 12:45 | XMS_ITS | Encounter Summary ---
Author Organization [facility] Address [address] [facility] [place] [address] Care Team Providers Care Buckle Attacher Name Role Phone Leon Taylor MD Primary Care Provider + Encounter Details Date Type Department Care Team (Late st Contact Info) Description 05/05/2023 Lab Requisition [facility] - Pathology Lab [address] [place] [id number] Dorian Flynn MD [address] [address] Anemia, unspecified Social History Tobacco [...] AM CDT) Case Report Flow Cytometry Case: [id number] Authorizing Provider: Dorian Flynn MD Collected: 05/05/2023 09:15 AM Ordering Location: [facility] Care Pathology Lab Received: 05/05/2023 01:34 PM Pathologist: Munir Espinoza MD Specimen: Bone Marrow 05/05/2023 4:54 PM CDT [facility] PATH[facility]Y [facility] Final Diagnosis Bone marrow, flow cytometric immunophenotypic analysis: - No evidence of non-Hodgkin lymphoma or high-grade myeloid neoplasm. - See interpretation. Correlation with clinical findings, corresponding bone marrow biopsy, cytogenetic/molecu lar studies is required. 05/05/2023 4:54 PM [facility] PATH[facility] Flow Cytometry Interpretation Viability: 90% - Lymphocytes (17% of events) B-cells (5% of lymphocyes): polytypic, kappa:lambda ratio 1.6:1 T-cells (85% of lymphocytes): no immunophenotypic aberrancy detected - dimCD45 gate (5% of events) 2.3% of CD34 + blasts detected, express CD33 and CD13 with obstetrician gynecologist maturation. Plasma cells: polytypic, kappa:lambda ratio 1.5:1 no immunophenotypic aberrancy detected MRD sent: no A bone marrow aspirate smear prepared from the flow cytometry specimen has been reviewed for production quality manager purposes. 05/05/2023 4:54 PM [facility] PATH[facility] Flow Cytometry Results Differential Result Comment Flow Cell Count /uL 36,800 Total Viability % 90.0 Lymphocytes % 17 Dim CD45 Region % 5 Monocytes % 8 Granulocytes % 69 05/05/2023 4:54 PM CDT [facility] PATHOLOGY [facility] Reason for test Anemia, unspecified 285.9 05/05/2023 4:54 PM [facility] Client Specimen ID # [id number] 05/05/2023 4:54 PM [facility] Number of markers 14 were performed. A-2 Flow CD10 A-3 Flow CD13 A-5 Flow CD20 A-13 Flow CD117 A-14 FLOW CD138 A-1 Flow CD5 A-4 Flow CD19 A-6 Flow CD33 A-7 Flow CD34 A-8 Flow CD45 A-11 Flow CD38 A-12 Flow CD56 A-9 Pickwick+CD19+ A-10 Lambda+CD19+ 05/05/2023 4:54 PM [facility] Pathologist Location at [facility] 05/05/2023 4:54 PM [facility] PATH[facility] Disclaimer Test performed at [facility], [address] [place] [address], [address]. *The established laboratory minimum viability is 70%. [...] complexity clinical testing. 05/05/2023 4:54 PM CDT [facility] PATHOLOGY LAB Embedded Images 4:54 PM CDT [facility] PATHOLOGY LAB Pathology/Cytolo gy BONE MARROW SPECIMEN / Unknown 05/05/2023 9:15 AM CDT 05/05/2023 1:34 PM CDT Dorian Flynn MD LAB - PATHOLOGY/CYTOLOGY ORDERAB LES Final Result [facility] PATHOLOGY LAB [address] [phone] documented in this encounter Visit Diagnoses Diagnosis Anemia, unspecified documented in this encounter Care Teams Buckle Attacher Relationship Specialty Start Date End Date Leon Taylor MD [address] [address] PCP - General 02/28/19 documented as of this encounter
--- OUTSIDE RECORDS SUMMARY | 2024-12-18 12:46 | XMS_ITS | Encounter Summary ---
Author Organization [facility] Healthcare Address [address] [place] [address] Care Team Providers Care Telecommunications Technician Name Role Phone Leon Taylor MD Primary Care Prov ider Bhavesh Valdez MD Unavailable [phone] Nolan Herron MD Unavailable [phone] Encounter Details Date Type Department Care Team (Late st Contact Info) Description 12/17/2024 Telephone [facility] Medical Group Cardiology [address] [place] [address] Bhavesh Valdez MD [address] [place] [address] Social History Tobacco Use Types Packs/Day Years [...] on file 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 Pt scheduled for appt on 12/18 at 1100 with CK. Pt verbalizes understanding. * Telephone Encounter - Muna Nelson - 12/17/2024 1:10 PM CDT Pt has fluid buildup in both legs and stomach. Pt states in excess of 15-20 pounds. He will be undergoing a Valve replacement surgery at [facility] very soon, but it is not set up yet. Pt has a wound on Right lower calf. It is oozing mostly clear fluid. He is keeping is covered during the day and using neosporin. He is wondering if he can up his water pill to get rid of the excess water weight. Please call backat [phone]. documented in this encounter Plan of Treatment Not on file documented as of this encounter Visit Diagnoses Not on filedocumented in this encounter Care Teams Telecommunications Technician Relationship Specialty Start Date End Date Leon Taylor MD [address] [place] [address] PCP - General 12/03/16 Bhavesh Valdez MD [address] [facility] [address] [place] [address] Consulting Physician Cardiology 08/26/23 Nolan Herron MD [address] [facility] [address] [place] [address] Referring Physician Hematology 08/26/23 documented as of this encounter
--- OUTSIDE RECORDS SUMMARY | 2024-12-18 12:46 | XMS_ITS | Referral Summary ---
Author Organization [facility] [address] [place] [address] 162 Address [address] [facility] [address] [place] [address] Care Team Providers Care Podiatric Assistant Name Role Phone Leon Taylor MD Primary Care Prov ider Bhavesh Valdez MD Unavailable [phone] Nolan Herron MD Unavailable [phone] Encounters Date Type Department Care Team Description 12/18/2024 11:00 AM CDT Office Visit [facility] Medical [facility] Cardiology [address] [facility] [address] [place] [address] Liliana Bynum NP Arrived 12/17/2024 Telephone [facility] Cardiology [address] [facility] [address] [place] [address] Bhavesh Valdez MD 12/13/2024 12:06 PM CDT Anesthesia Event [facility] Heart [address] [address] Denia Olivares MD Fitterer, Morgan Elisabeth, CRNA 12/13/2024 10:24 AM CDT - 12/13/2024 11:59 PM CDT Hospital Encounter [facility] Heart Center [address] [place] [address] Bhavesh Washington MD Nonrheumatic tricuspid valve regurgitation Discharge Disposition: Discharge to home or self care 12/10/2024 Telephone [facility] Cardiology [address] [place] [address] [address], [place] [address] Edward Mckeon MD MARCE Tricuspid Scheduling 12/03/2024 Results Follow-Up [facility] Cardiology [address] [place] [address] [address] [place] [address] Veena Balderas MA 11/09/2024 10:00 AM TECHNICAL OPERATIONS MANAGER - 11/09/2024 11:59 PM TECHNICAL OPERATIONS MANAGER Hospital Encounter [facility] - Imaging [address] [place] [phone] Edward Mckeon MD Dysphagia, unspecified type Discharge Disposition: Discharge to home or self care 11/09/2024 10:27 AM TECHNICAL OPERATIONS MANAGER - 11/09/2024 11:59 PM TECHNICAL OPERATIONS MANAGER Hospital Encounter [facility] - Imaging [address] [place] [address] Edward Mckeon MD Nonrheumatic tricuspid valve regurgitation; Abnormal result of cardiovascular function study, unspecified Discharge Disposition: Discharge to home or self care 11/09/2024 3:00 PM TECHNICAL OPERATIONS MANAGER - 11/09/2024 11:59 PM TECHNICAL OPERATIONS MANAGER Hospital Encounter [facility] Respiratory Care Center [address] [place] [phone] Nonrheumatic tricuspid valve regurgitation Discharge Disposition: Discharge to home or self care 11/09/2024 2:00 PM TECHNICAL OPERATIONS MANAGER - 11/09/2024 11:59 PM TECHNICAL OPERATIONS MANAGER Hospital Encounter [facility] OP Cardiac Testing [address] [place] [address] [address] [place] [address] Nonrheumatic tricuspid valve regurgitation Discharge Disposition: Discharge to home or self care 10/29/2024 Telephone [facility] Cardiology [address] [place] [address] [address] [address] Edward Mckeon MD SCHEDULE TRICUSPID MARCE 10/29/2024 10:00 AM TECHNICAL OPERATIONS MANAGER Office Visit [facility] Cardiology [address] [place] [address] [address] [phone] Edward Mckeon MD Persistent atrial fibrillation (HCC) [...] (05/25/2019): Added automatically from request for surgery [id number] Assessment & Plan (08/25/2023 5:27 PM TECHNICAL OPERATIONS MANAGER): The patient is status post catheter [...] with atrial fibrillation: a report of the [employer] College of [employer]iology/Stateless Heart Association Task Force on Practice Guidelines [...] CABG (coronary artery bypass graft) 04/05/20 17 senior living (current) use of anticoagulants [Z79.0 1] 02/16/2017 Assessment & Plan (08/25/2023 5:28 PM TECHNICAL OPERATIONS MANAGER): The patient has atrial fibrillation with an elevated BYZ6NH3-RYQw score (3). Based on this, systemic anticoagulation [...] of Atrial Fibrillation: A Report of the [employer] College of Cardiology/ [employer] Heart Association Joint Committee on Clinical Practice Guidelines. Circulation 2022;148: e42 Class IIA: In patients with AF, a moderate to high risk of stroke (NCZ0ZU0-KAYi score >=2), and a contraindication to long-term oral anticoagulation due to a nonreversible cause, percutaneous LAAO (pLAAO) is reasonable Hypertension 10/15/2014 Chronic coronary artery disease 09/30/2014 Resolved Problems Problem Noted Date Diagnosed Date Resolved Date A-fib 02/07/2024 03/21/2024 Paroxysmal atrial fibrillation ([facility]/HCC) 03/30/2019 06/29/2022 Overview (03/30/2019): Added automatically from request for surgery [id number] Atrial fibrillation ([facility]) [I48.91] 02/16/2017 06/29/2022 Immunizations Immunization Administration Dates [...] on file 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 Gender Identity Not on file Sexual [...] 12/18/2024 11:02 AM CDT Plan of Treatment Not on file Medical Devices Implanted Type Area Coagulator Device Identifier Shelf Expiration Date Model / Serial / Lot [employer] Brad Device Closure 27mm Lt Watchman Flx Pro Cardiac Strl [place] [id number] - [id number] - [id number] Implanted:Qty: 1 on 02/07/2024 by Caleb Bonilla MD at [facility] Left Atrial Appendage Occluder [employer] Brad 12/07/2026 [id number] / [id number] / [id number] [employer] Vascade Mvp 6-12fr Venous Closure [id number] - [id number] - [id number] Implanted:Qty: 1 on 02/07/2024 by Caleb Bonilla MD at [facility] [employer] 11/23/2025 [id number] / [id number] / [id number] Procedures Procedure Name Priority Date/Time Associated [...] FUNCTION TEST (PFT) Routine 11/09/2024 3:58 PM TECHNICAL OPERATIONS MANAGER Nonrheumatic tricuspid valve regurgitation TRANSTHORACIC ECHO (TTE) COMPLETE W DOPPLER/CF W CONTRAST Routine 11/09/2024 3:43 PM TECHNICAL OPERATIONS MANAGER Nonrheumatic tricuspid valve regurgitation FL ESOPHAGRAM, DOUBLE CONTRAST Schedule Routine, Read Routine (OP Routine) 11/09/2024 12:16 PM TECHNICAL OPERATIONS MANAGER Dysphagia, unspecified type CT TAVR Schedule Routine, Read Routine (OP Routine) 11/09/2024 11:50 AM TECHNICAL OPERATIONS MANAGER Nonrheumatic tricuspid valve regurgitation Abnormal result of cardiovascular function study, unspecified POCT CREATININE FOR CONTRAST EVALUATION Routine 11/09/2024 10:46 AM TECHNICAL OPERATIONS MANAGER COMPREHENSIVE METABOLIC PANEL Routine 11/06/2024 11:05 AM TECHNICAL OPERATIONS MANAGER Nonrheumatic tricuspid valve regurgitation CBC WITH AUTO DIFFERENTIAL Routine 11/06/2024 11:05 AM TECHNICAL OPERATIONS MANAGER Nonrheumatic tricuspid valve regurgitation from Last 3 Months Results * TRANSESOPHAGEAL ECHO (MARCE) W DOPPLER/CF WO CONTRAST (12/13/2024 12:37 PM CDT) LV EF 60 % CONS SCIMAGE Anatomical Region Laterality Modality Echocardiography 12/13/2024 12:0 6 PM CDT Narrative 12/13/2024 1:19 PM CDT [facility] [address] [place] [address] TRANSESOPHAGEAL ECHOCARDIOGRAM Patient Name: JUSTUS RODRIGUEZ : 1950 (74y 7m) Gender: M Study Date: 12/13/2024 12:06:09 PM Ht(Inch): 70 Wt(Lb): 252.01 BSA: 2.38 Terrazzo Worker Helper: FABI Location: [facility] Order Provider: EDWARD MCKEON BMI: 36.16 BP: [...] By: Bhavesh cole 12/13/2024 1:18:57 PM CDT Procedure Note Bhavesh Washington MD - 12/13/2024 [facility] [address] [place] [address] TRANSESOPHAGEAL ECHOCARDIOGRAM Patient Name: JUSTUS RODRIGUEZ : 1950 (74y 7m) Gender: M Study Date: 12/13/2024 12:06:09 PM Ht(Inch): 70 Wt(Lb): 252.01 BSA: 2.38 Terrazzo Worker Helper: FABI Location: [facility] Order Provider: EDWARD MCKEON BMI: 36.16 BP: [...] regurgitation. Electronically Signed By: Bhavesh Washington MD mob 12/13/2024 1:18:57 PM CDT Edward Mckeon MD CV ECHO PROCEDURES Final Result * (ABNORMAL) CBC with auto differential (12/11/2024 1:48 PM CDT) WBC 2.2(L) 3.8 - 10.8 Thousand/u L [...] BLOOD ORDERABLES Final Resul t [facility] [address] [place] [address] * (ABNORMAL) Protime-INR (12/11/2024 1:48 PM CDT) INR 1.1 Lobo [employer] Ma Comment: Reference Range 0.9-1.1 Moderate-intensity Warfarin Therapy 2.0-3.0 Higher-intensity Warfarin Therapy 3.0-4.0 PT 12.2(H) 9.0 - 11.5 sec Lobo Ma Comment: For additional information, please refer to http://education.Wayin/faq/KOP919 (This link is being provided for informational/ educational purposes only.) Blood 12/11/2024 1:48 PM CDT 12/11/2024 1:48 PM CDT us Edward Mckeon MD LAB BLOOD ORDERABLES Final Resul t [facility] [address] [place] [address] * (ABNORMAL) Basic metabolic panel (12/11/2024 1:48 [...] BLOOD ORDERABLES Final Resul t [facility] [address] [address] * Pulmonary Function Test - (11/09/2024 3:58 PM TECHNICAL OPERATIONS MANAGER) Anatomical Region Laterality Modality PFT 11/09/2024 3:56 PM TECHNICAL OPERATIONS MANAGER Narrative 11/29/2024 4:32 PM CDT Table formatting from the original result was not included. [facility] BOARD CERTIFIED IN PULMONARY, CRITICAL CARE, AND SLEEP MEDICINE Merissa Jarrell MD [address] [place] [address] [id number] [place] [address] MD Chaz Ching MD Office [phone] Dorian Christie MD PULMONARY FUNCTION TESTING 6 [...] Certified in Pulmonary and Critical Care Medicine [phone] Please note that our PFT lab has [...] W DOPPLER/CF W CONTRAST (11/09/2024 3:43 PM TECHNICAL OPERATIONS MANAGER) Anatomical Region Laterality Modality Ultrasound 11/09/2024 2:03 PM TECHNICAL OPERATIONS MANAGER Narrative 11/09/2024 5:48 PM TECHNICAL OPERATIONS MANAGER [facility] [address] [place] [address] ECHOCARDIOGRAM Patient Name: JUSTUS RODRIGUEZ : 1950 (74y 6m) Gender: M Study Date: 11/09/2024 02:03:35 PM Ht(Inch): 70 Wt(Lb): 251.99 BSA: 2.38 Terrazzo Worker Helper: Location: [address] Order Provider: EDWARD MCKEON [...] By: Edward Mckeon MD 11/09/2024 5:47:59 PM TECHNICAL OPERATIONS MANAGER Procedure Note Edward Mckeon MD - 11/09/2024 [facility] [address] [place] [address] ECHOCARDIOGRAM Patient Name: JUSTUS RODRIGUEZ : 1950 (74y 6m) Gender: M Study Date: 11/09/2024 02:03:35 PM Ht(Inch): 70 Wt(Lb): 251.99 BSA: 2.38 Terrazzo Worker Helper: Location: [address] Order Provider: EDWARD MCKEON [...] By: Edward Mckeon MD 11/09/2024 5:47:59 PM TECHNICAL OPERATIONS MANAGER us Edward Mckeon MD CV ECHO PROCEDURES Final Result * FL Esophagram, Double Contrast (11/09/2024 12:16 PM TECHNICAL OPERATIONS MANAGER) Anatomical Region Laterality Modality Body N/A Radio Fluoroscop y 11/09/2024 1:16 PM TECHNICAL OPERATIONS MANAGER Impressions 11/09/2024 1:51 PM TECHNICAL OPERATIONS MANAGER 1. Trace laryngeal penetration. No evidence [...] Anil Randolph M.D. Narrative 11/09/2024 1:51 PM TECHNICAL OPERATIONS MANAGER EXAMINATION: DOUBLE CONTRAST BARIUM ESOPHAGRAM 11/09/2024. [...] Result * CT TAVR (11/09/2024 11:50 AM TECHNICAL OPERATIONS MANAGER) Anatomical Region Laterality Modality Chest N/A Computed Tomogra phy 11/09/2024 2:02 PM TECHNICAL OPERATIONS MANAGER Impressions 11/09/2024 3:56 PM TECHNICAL OPERATIONS MANAGER 1. Measurements as above 2. Left [...] Popeye Becker M.D. Narrative 11/09/2024 3:56 PM TECHNICAL OPERATIONS MANAGER EXAMINATION: Heart CT and CTA abdomen [...] creatinine for contrast evaluation (11/09/2024 10:46 AM TECHNICAL OPERATIONS MANAGER) Pathologist [facility] Creatinine, POC 2.0(A) 0.6 - 1.5 mg/dL Comment:eGFR: 35 Blood 11/09/2024 10:4 6 AM TECHNICAL OPERATIONS MANAGER us Edward Mckeon MD POINT OF CARE TEST ORDERABLES Fi nal Result * (ABNORMAL) CBC with auto differential (11/06/2024 11:05 AM TECHNICAL OPERATIONS MANAGER) Pathologist [facility] WBC 1.9(L) 3.8 - 10.8 Thousand/u L [...] [facility] Blood 11/06/2024 11:0 5 AM TECHNICAL OPERATIONS MANAGER 11/06/2024 11:05 AM TECHNICAL OPERATIONS MANAGER us Edward Mckeon MD LAB BLOOD ORDERABLES Final Resul t [facility] [address] [place] [address] * (ABNORMAL) Comprehensive metabolic panel (11/06/2024 11:05 AM TECHNICAL OPERATIONS MANAGER) Pathologist [facility] Glucose 102(H) 65 - 99 mg/dL [facility] [...] [facility] Blood 11/06/2024 11:0 5 AM TECHNICAL OPERATIONS MANAGER 11/06/2024 11:05 AM TECHNICAL OPERATIONS MANAGER Edward Mckeon MD LAB BLOOD ORDERABLES Final Resul t [facility] [address] [place] [address] from Last 3 Months Insurance [employer] MEDICARE MEDICARE COMMERCIAL GENERIC MEDIC[facility] Advance Directives For more information, please contact: [phone] * Full Code (Latest Code Status on File) Date Activated Date Inactivated Comments 2019 10:44 AM 04/27/2019 5:09 PM Care Teams Podiatric Assistant Relationship Specialty Start Date End Date Leon Taylor MD [address] [place] [address] PCP - General 12/03/16 Bhavesh Valdez MD [address] [facility] [address] [place] [address] Consulting Physician Cardiology 08/26/23 Nolan Herron MD [address] [facility] [address] [place] [address] Referring Physician Hematology 08/26/23
--- OUTSIDE RECORDS SUMMARY | 2024-12-18 12:46 | XMS_ITS | Clinical Summary ---
Author Organization [facility] Address [address] [place] [address] Care Team Providers Care Secondary School Teacher Librarian Name Role Phone Leon Taylor MD Primary Care Provider [phone] Allergies No known active allergies Medications Eliquis [...] Encounters Date Type Department Care Team Description 12/11/2024 4:15 PM CDT Telephone Check Up [facility] Oncology and Hematology - [place] [address] [place] [address] Nolan Herron MD 12/11/2024 External Device Data STL ABSTRACTION Provider, Abstract 12/10/2024 Orders Only [facility] Oncology and Hematology - [place] [address] [place] [address] Nolan Herron MD 11/27/2024 1:15 PM CDT Office Visit [facility] Oncology and Hematology [facility] [address] [place] [address] Nolan Herron MD Chronic anemia (Primary Dx); Mass of breast, unspecified laterality 11/21/2024 External Device Data STL ABSTRACTION Provider, Abstract 11/21/2024 Orders Only [facility] Oncology and Hematology [facility] [address] [place] [address] Nolan Herron MD 11/12/2024 External Device Data [...] Care Team (Late st Contact Info) Description 06/17/2025 10:15 AM CDT Office Visit [facility] Oncology and Hematology - [place] [address] [place] [address] Nolan Herron MD [address] [facility] [address] [place] [address] Health Maintenance Due Date Last [...] Procedure Name Priority Date/Time Associated Diagnosis Comments US BREAST BILAT COMPLETE Routine 12/07/2024 10:52 AM CDT BASIC METABOLIC PANEL Routine 11/19/2024 4:09 PM CDT from Last 3 Months Results * US BREAST BILAT COMPLETE (12/07/2024 10:52 AM CDT) Anatomical Region Laterality Modality Breast Bilateral Ultrasound us Nolan Herron MD US ORDERABLES Final Result * BASIC METABOLIC PANEL (11/19/2024 4:09 PM CDT) Blood Nolan Herron MD CHEMISTRY ORDERABLES Final Resu lt from Last 3 Months Insurance [facility] [facility] MEDICARE PART A AND B Care Teams Secondary School Teacher Librarian Relationship Specialty Start Date End Date Leon Taylor MD PCP - General Family Practice 04/22/23
--- OUTSIDE RECORDS SUMMARY | 2024-12-18 12:46 | XMS_ITS | Encounter Summary ---
Author Organization [facility] Healthcare Address [address] [place] [address] Care Team Providers Care Counseling Aide Name Role Phone Leon Taylor MD Primary Care Prov ider Bhavesh Valdez MD Unavailable [phone] Nolan Herron MD Unavailable [phone] Reason for Visit * Reason Comments Follow-up Edema and open sores on legs x 6 weeks Atrial Fibrillation Shortness of Breath Encounter Details Date Type Department Care Team (Late st Contact Info) Description 12/18/2024 11:00 AM CDT Office Visit [facility] Medical Group Cardiology [address] [address] [address] [place] [address] Liliana Bynum NP [address] [place] [address] Arrived Social History Tobacco Use Types Packs/Day Years [...] on file 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[employer] Gender Identity Not on file Sexual Orientation Not on file documented as of this encounter Last Filed Vital Signs Vital Sign Reading Time Taken Comments Blood Pressure 120/62 12/18/2024 11:02 AM CDT Pulse 66 12/18/2024 11:02 AM CDT Temperature - - Respiratory Rate - - Oxygen Saturation 98% 12/18/2024 11: 02 AM CDT Inhaled Oxygen Concentration - - Weight 123.7 kg (272 lb 9.6 oz) 025 11:02 AM CDT Height 177.8 cm (5' 10 ) 12/18/2024 11: 02 AM CDT Body Mass Index 39.11 12/18/2024 11:02 AM CDT documented in this encounter Plan of Treatment Not on file documented as of this encounter Visit Diagnoses Not on filedocumented in this encounter Historical Medications * This list may reflect changes made after this encounter. losartan (COZAAR) 50 mg tablet Take 1 tablet (50 mg total) by mouth daily added in this encounter Care Teams Counseling Aide Relationship Specialty Start Date End Date Leon Taylor MD [address] [place] [address] PCP - General 12/03/16 Bhavesh Valdez MD [address] [facility] [address] [place] [address] Consulting Physician Cardiology 08/26/23 Nolan Herron MD [address] [facility] [address] [place] [address] Referring Physician Hematology 08/26/23 documented as of this encounter
--- OUTSIDE RECORDS SUMMARY | 2024-12-18 12:46 | XMS_ITS | Encounter Summary ---
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 Please see telephone encounter dated 10/29/24 for more information. Thank you. Veena ----- Message ----- From: Edward Lovett MD Sent: 11/30/2024 11:57 AM CDT To: Veena Balderas MA What is status of his testing? ----- Message ----- From: Merissa Jarrell MD Sent: 11/29/2024 4:32 PM CDT To: Edward Lovett MD documented in this encounter Plan of Treatment Not on file documented as of this encounter Visit Diagnoses Not on filedocumented in this encounter Care Teams Rotary Drum Tanner Relationship Specialty Start Date End Date Leon Taylor MD [address] [place] [address] PCP - General 12/03/16 Bhavesh Valdez MD [address] [facility] [address] [place] [address] Consulting Physician Cardiology 08/26/23 Nolan Herron MD [address] [facility] [address] [place] [address] Referring Physician Hematology 08/26/23 documented as of this encounter
[2024-12-18 12:49] LABS: NT Pro B Type Natriuretic Pept 11100 pg/mL (19.9-100)
--- NOTE | 2024-12-18 12:59 | ED_ITS ---
HPI - SOB/Dyspnea General Chief Complaint: Shortness of Breath/Dyspnea Stated Complaint: Shortness of breath-swelling in legs-CHF Time Seen by Provider: 12/18/24 11:58 History of Present Illness HPI Narrative: This patient presents here with increasing shortness of breath and lower extremity swelling over past 6 weeks, much worse over last 2 weeks, he does already take Lasix, believes that this may also be because of his valvular disease which he will have surgery. History of AFib with Watchman device. Denies chest pain Related Data Home Medications ?Medication ?Instructions ?Recorded ?Confirmed ?Last Taken ?Type mecobalamin (vitamin B12) 1,000 1,000 mcg PO DAILY 12/18/24 12/18/24 12/18/24 History mcg chewable tablet Allergies Allergy/AdvReac Type Severity Reaction Status Date / Time No Known Allergies Allergy Verified 12/18/24 15:44 Review of Systems 2 Review of Systems: All systems reviewed & are unremarkable except as noted in HPI and below PMFSH Past Medical History Medical History (Updated 12/18/24 @ 17:40 by Kayleigh Hammer MD) Hypertension Chronic kidney disease, stage 3 Osteoarthritis Gastroesophageal reflux disease Valvular heart disease Severe tricuspid regurgitation with plans for upcoming TTVR, mild mitral regurgitation, and mild aortic stenosis on echo in 06/2021. Heart failure with preserved ejection fraction Echo in 06/2021 showed normal LV size, moderate LVH, EF 65 to 70%, diastolic dysfunction, mild RV enlargement with hypokinesis, and biatrial enlargement. Benign prostatic hyperplasia Pancytopenia Secondary to splenomegaly. Bone marrow aspiration and biopsy in 04/2023 showed no evidence of mild dysplastic syndrome with normal male karyotype. Followed by Dr. Herron. C. difficile colitis (12/2020) Pulmonary hypertension Chronic anemia Hyperlipidemia Atrial fibrillation Persistent atrial fibrillation status post Watchman. Surgical History Surgical History (Updated 12/18/24 @ 14:44 by Nataliia Chou PA-C) Presence of Watchman left atrial appendage closure device History of cataract removal with insertion of prosthetic lens History of appendectomy History of coronary artery bypass graft x 3 (10/2014) History of total right knee replacement (2011) History of total left knee replacement History of right inguinal hernia repair (2009) With mesh with subsequent recurrence of hernia History of cardiac radiofrequency ablation (09/15/20) Family History Family History Sibling Atrial fibrillation Father Heart disease Mother Congestive heart failure Social History Social History Social History: Surrogate medical decision maker: Mariusz Rodriguez, brother ([phone]). Code status: Full code. Smoking status: Never smoker Second hand tobacco smoke exposure: No Alcohol intake: never Substance use: never Substance use type: does not use Do You Feel Safe in your Home?: Yes Lack of Transportation: No Lack of Food: Never True Current Housing: I Have Housing Concerned About Future Housing: No Difficulty Paying Gas/Electric Bills: No Difficulty Paying for Meds: No Currently Unemployed: No Education: Don't Know Difficulty w/ Childcare or Family Care: No Living arrangements: with family Additional living arrangements comments: Lives in [place]. Never , no children. Occupation/Education: retired Additional occupation/education comments: [employer]. Spiritual care concerns: No Agree to blood products: Yes Exam 2 Narrative: EXAMINATION OF ORGAN SYSTEMS/BODY AREAS: Constitutional: Vital signs per nursing GENERAL:[No acute distress, non-toxic appearing.] HEAD: Normal with no signs of head trauma. EYES: EOMI, conjunctiva normal ENT: Hearing grossly intact LUNGS: Some tachypnea HEART: [Regular rate and rhythm] ABD: [Soft], nondistended EXT: Normal range of motion; swelling to lower extremities with pitting edema bilaterally and some slight redness bilaterally SKIN: [No rashes or lesions.] NEURO: [Alert and oriented x 3. No gross focal sensory or strength deficits.] PSYCH: Normal affect Course Vital Signs Vital signs: Vital Signs Pulse Rate 87 12/18/24 11:47 Respiratory Rate 20 12/18/24 11:47 Blood Pressure 136/72 12/18/24 11:47 Pulse Oximetry 98 12/18/24 11:47 Oxygen Delivery Room Air 12/18/24 11:47 Pulse Rate 80 12/18/24 15:11 Respiratory Rate 20 12/18/24 15:11 Blood Pressure 117/63 12/18/24 15:11 Pulse Oximetry 100 12/18/24 15:11 Oxygen Delivery Room Air 12/18/24 16:21 MDM - SOB/Dyspnea MDM Narrative Medical decision making narrative: This patient presents here with increasing shortness of breath and lower extremity swelling over past 6 weeks, much worse over last 2 weeks, he does already take Lasix, believes that this may also be because of his valvular disease which he will have surgery. History of AFib with Watchman device. Denies chest pain. EKG here on my independent interpretation shows AFib rate 89, QRS 106, QTC 453, left deviation, no obvious signs of acute ischemia. Chest x-ray my independent interpretation does show cardiomegaly what appears to be pulmonary edema with bilateral patchy opacities, he will be given a dose of Lasix, discussed with patient admission which he is agreeable with for further diuresis. Discussed with hospitalist for admission. Lab Data 12/18/24 11:54 12/18/24 11:54 Labs: Lab Results 12/18/24 12/18/24 12/18/24 Range/Units 11:53 11:53 11:54 WBC 2.0 L (4.5-10.0) K/mm3 RBC 3.62 L (4.6-6.20) M/mm3 Hgb 9.7 L (14.0-18.0) g/dL Hct 32.7 L (42.0-52.0) % MCV 90.3 (80-100) fl MCH 26.8 (26-34) pg MCHC 29.7 L (32-36) g/dl RDW 17.2 H (11.5-14.5) % Plt Count 104 L (150-375) k/mm3 MPV 9.4 (7.4-10.4) fl Immature Gran % (Auto) 0.0 (0-0.5) % Neut % (Auto) 70.8 (45.5-73.1) % Lymph % (Auto) 16.9 L (18.3-44.2) % Granite % (Auto) 8.2 (2.6-8.5) % Eos % (Auto) 3.6 (0-4.4) % Baso % (Auto) 0.5 (0.2-1.2) % Lymph # (Auto) 0.33 L (0.9-3.2) K/mm3 Granite # (Auto) 0.2 (0.1-0.6) K/mm3 Eos # (Auto) 0.1 (0-0.3) K/mm3 Baso # (Auto) 0.0 (0.0-0.1) K/mm3 Abs Immat Gran (auto) 0.00 (0.00-0.031) K/mm3 Absolute Neuts (auto) 1.4 (1.3-6.7) K/mm3 Absolute Nucleated RBC 0.000 (0.0-0.012) K/mm3 Band Neutrophils % Not Reportable Nucleated RBC % 0.0 (0.0-0.2) % Platelet Estimate Slightly decreased (Adequate) % Immature Plt Fraction 1.3 (0.9-11.2) % Hypochromasia 1+ Anisocytosis 1+ Microcytosis 1+ (NORMAL) Schistocytes Not Reportable Sodium 137 (137-145) mmol/L Potassium 4.5 (3.4-5.0) mmol/L Chloride 103 (98-107) mmol/L Carbon Dioxide 24 (22-30) mmol/L Anion Gap 10 (4-12) mmol/L BUN 32 H (9-20) mg/dL Creatinine 1.73 H (0.7-1.3) mg/dL Estim Creat Clear Calc 44 ml/min Estimated GFR 39 L (59 - ) Glucose 105 (65-110) mg/dL Calcium 8.6 (8.4-10.2) mg/dL Magnesium 2.3 Cancelled (1.6-2.3) mg/dL Total Bilirubin 0.8 (0.2-1.3) mg/dL AST 20 (17-59) U/L ALT 14 (6-50) U/L Alkaline Phosphatase 60 (38-126) U/L NT-Pro-B Natriuret Pep [id number] H (19.9-100) pg/mL Total Protein 8.0 (6.3-8.2) g/dL Albumin 4.1 (3.5-5.1) g/dL Discharge Plan Discharge Clinical Impression: Fluid overload, Acute exacerbation of CHF (congestive heart failure) Patient Disposition: Still a Patient Condition: Stable
[2024-12-18 13:04] LABS: Anisocytosis 1+; Hypochromasia 1+; Microcytosis 1+ (NORMAL); Platelet Estimate Slightly Decreased (Adequate)
[2024-12-18] MEDS: FUROSEMIDE INJ 40 MG/4 ML VIAL IV PUSH ×2 (13:12→18:07)
--- OUTSIDE RECORDS SUMMARY | 2024-12-18 13:12 | XMS_ITS | Clinical Summary ---
Author Organization [facility] [address] Address [address] [place] [address] Care Team Providers Care Oracle Soa Developer Name Role Phone Leon Taylor MD Primary Care Prov ider Bhavesh Valdez MD Unavailable [phone] Nolan Herron MD Unavailable [phone] Allergies No known active allergies Medications [...] (05/25/2019): Added automatically from request for surgery [id number] Assessment & Plan (08/25/2023 5:27 PM REPAIRER WOOD FURNITURE): The patient is status post catheter ablation [...] 1st. From: September, Felicia LS, Brice JS, Ntaanael H, Len SONAM, Lena JE, Angel TRACY, Wen PT, Stiven MALLOY, ME, Jimmy KT, Ryan RL, Sebastian WG, Dwayne PJ, Darleen CM, Nadine CW. 2014 AHA/ACC/HRS guideline for the management of patients with atrial fibrillation: a report of the [place] College of Cardiology/[place] Heart Association Task Force on Practice Guidelines [...] CABG (coronary artery bypass graft) 04/05/20 17 terminal carman (current) use of anticoagulants [Z79.0 1] 02/16/2017 Assessment & Plan (08/25/2023 5:28 PM REPAIRER WOOD FURNITURE): The patient has atrial fibrillation with an elevated [id number] score (3). Based on this, systemic anticoagulation [...] of Atrial Fibrillation: A Report of the [place] College of Cardiology/ [place] Heart Association Joint Committee on Clinical Practice Guidelines. Circulation 202;148: e42 Class IIA: In patients with AF, a moderate to high risk of stroke ([id number] score >=2), and a contraindication to long-term oral anticoagulation due to a nonreversible cause, percutaneous LAAO (pLAAO) is reasonable Hypertension 10/15/2014 Chronic coronary artery disease 09/30/2014 Resolved Problems Problem Noted Date Diagnosed Date Resolved Date A-fib 02/07/2024 03/21/2024 Paroxysmal atrial fibrillation (CMS/HCC) 03/30/2019 06/29/2022 Overview (03/30/2019): Added automatically from request for surgery [id number] Atrial fibrillation (CMS/HCC) [I48.91] 02/16/2017 06/29/2022 Encounters Date Type Department Care Team Description 12/18/2024 11:00 AM CDT Office Visit [facility] Cardiology [address] [place] [address] [place] [phone] Liliana Bynum NP Arrived 12/17/2024 Telephone [facility] Cardiology [address] [place] [address] [address] [place] [phone] Bhavesh Valdez MD 12/13/2024 12:06 PM CDT Anesthesia Event [facility] Heart [address] [address] Denia Olivares MD Fitterer, Morgan Elisabeth, CRNA 12/13/2024 10:24 AM CDT - 12/13/2024 11:59 PM CDT Hospital Encounter [facility] Heart [address] [address] Bhavesh Washington MD Nonrheumatic tricuspid valve regurgitation Discharge Disposition: Discharge to home or self care 12/10/2024 Telephone [facility] Cardiology [address] [place] [phone] Edward Mckeon MD MARCE Tricuspid Scheduling 12/03/2024 Results Follow-Up [facility] Cardiology [address] [place] [address] [address], [place] [address] Veena Balderas MA 11/09/2024 3:00 PM REPAIRER WOOD FURNITURE - 11/09/2024 11:59 PM REPAIRER WOOD FURNITURE Hospital Encounter [facility] [address] [place] [phone] Nonrheumatic tricuspid valve regurgitation Discharge Disposition: Discharge to home or self care 11/09/2024 2:00 PM REPAIRER WOOD FURNITURE - 11/09/2024 11:59 PM REPAIRER WOOD FURNITURE Hospital Encounter [facility] OP Cardiac Testing [address] [place] [address] [address] [place] [address] Nonrheumatic tricuspid valve regurgitation Discharge Disposition: Discharge to home or self care 11/09/2024 10:27 AM REPAIRER WOOD FURNITURE - 11/09/2024 11:59 PM REPAIRER WOOD FURNITURE Hospital Encounter [facility] - Imaging [address] [place] [phone] Edward Mckeon MD Nonrheumatic tricuspid valve regurgitation; Abnormal result of cardiovascular function study, unspecified Discharge Disposition: Discharge to home or self care 11/09/2024 10:00 AM REPAIRER WOOD FURNITURE - 11/09/2024 11:59 PM REPAIRER WOOD FURNITURE Hospital Encounter [facility] - Imaging [address] [place] [phone] Edward Mckeon MD Dysphagia, unspecified type Discharge Disposition: Discharge to home or self care 10/29/2024 10:00 AM REPAIRER WOOD FURNITURE Office Visit [facility] Cardiology [address] [place] [phone] Edward Mckeon MD Persistent atrial fibrillation (HCC) (Primary Dx); Nonrheumatic tricuspid valve regurgitation; Abnormal result of cardiovascular function study, unspecified; Chronic coronary artery disease; Primary hypertension; Mixed hyperlipidemia 10/29/2024 Telephone [facility] Cardiology [address] [place] [phone] Edward Mckeon MD SCHEDULE TRICUSPID MARCE from [...] on file Legal Sex Male 8:52 PM REPAIRER WOOD FURNITURE Gender Identity Not on file Sexual Orientation [...] history exists Medical Devices Implanted Type Area Data Librarian Device Identifier Shelf Expiration Date Model / Serial / Lot [employer] Brad Device Closure 27mm Lt Watchman Flx Pro Cardiac Strl La [id number] - [id number] - [id number] Implanted:Qty: 1 on 02/07/2024 by Caleb Bonilla MD at [facility] Left Atrial Appendage Occluder [employer] Brad 12/07/2026 [id number] / [id number] / [id number] [employer] Vascade Mvp 6-12fr Venous Closure [id number] - [id number] - [id number] Implanted:Qty: 1 on 02/07/2024 by Caleb Bonilla MD at [facility] [employer] 11/23/2025 [id number] / [id number] / [id number] Procedures Procedure Name Priority Date/Time Associated [...] FUNCTION TEST (PFT) Routine 11/09/2024 3:58 PM REPAIRER WOOD FURNITURE Nonrheumatic tricuspid valve regurgitation TRANSTHORACIC ECHO (TTE) COMPLETE W DOPPLER/CF W CONTRAST Routine 11/09/2024 3:43 PM REPAIRER WOOD FURNITURE Nonrheumatic tricuspid valve regurgitation FL ESOPHAGRAM, DOUBLE CONTRAST Schedule Routine, Read Routine (OP Routine) 11/09/2024 12:16 PM REPAIRER WOOD FURNITURE Dysphagia, unspecified type CT TAVR Schedule Routine, Read Routine (OP Routine) 11/09/2024 11:50 AM REPAIRER WOOD FURNITURE Nonrheumatic tricuspid valve regurgitation Abnormal result of cardiovascular function study, unspecified POCT CREATININE FOR CONTRAST EVALUATION Routine 11/09/2024 10:46 AM REPAIRER WOOD FURNITURE COMPREHENSIVE METABOLIC PANEL Routine 11/06/2024 11:05 AM REPAIRER WOOD FURNITURE Nonrheumatic tricuspid valve regurgitation CBC WITH AUTO DIFFERENTIAL Routine 11/06/2024 11:05 AM REPAIRER WOOD FURNITURE Nonrheumatic tricuspid valve regurgitation from Last 3 Months Results * TRANSESOPHAGEAL ECHO (MARCE) W DOPPLER/CF WO CONTRAST (12/13/2024 12:37 PM CDT) LV EF 60 % CONS SCIMAGE Anatomical Region Laterality Modality Echocardiography 12/13/2024 12:0 6 PM CDT Narrative 12/13/2024 1:19 PM CDT [facility] [address] [place] [address] TRANSESOPHAGEAL ECHOCARDIOGRAM Patient Name: JUSTUS RODRIGUEZ : 1950 (74y 7m) Gender: M Study Date: 12/13/2024 12:06:09 PM Ht(Inch): 70 Wt(Lb): 252.01 BSA: 2.38 Faith Healer: FABI Location: [facility] Order Provider: EDWARD MCKEON BMI: 36.16 BP: [...] Procedure Note Bhavesh Washington MD - 12/13/2024 [place] [id number] [place] [address] TRANSESOPHAGEAL ECHOCARDIOGRAM Patient Name: JUSTUS RODRIGUEZ : 1950 (74y 7m) Gender: M Study Date: 12/13/2024 12:06:09 PM Ht(Inch): 70 Wt(Lb): 252.01 BSA: 2.38 Faith Healer: FABI Location: [facility] Order Provider: EDWARD MCKEON BMI: 36.16 BP: [...] with auto differential (12/11/2024 1:48 PM CDT) [facility] WBC 2.2(L) 3.8 - 10.8 Thousand/u L [...] ORDERABLES Final Resul t Performing Organization Address City/[facility]/ZIP Co de Phone Number [facility] [address] [phone] * (ABNORMAL) Protime-INR (12/11/2024 1:48 PM CDT) INR 1.1 [facility] Comment: Reference Range 0.9-1.1 Moderate-intensity Warfarin Therapy 2.0-3.0 Higher-intensity Warfarin Therapy 3.0-4.0 PT 12.2(H) 9.0 - 11.5 sec [facility] Comment: For additional information, please refer to http://education.[employer]/faq/BFQ771 (This link is being provided for informational/ educational purposes only.) Blood 12/11/2024 1:48 PM CDT 12/11/2024 1:48 PM CDT us Edward Mckeon MD LAB BLOOD ORDERABLES Final Resul t Performing Organization Address City/[facility]/ZIP Co de Phone Number [facility] [address] [place] [address] * (ABNORMAL) Basic metabolic panel (12/11/2024 1:48 [...] BLOOD ORDERABLES Final Resul t [facility] [address] [phone] * Pulmonary Function Test - (11/09/2024 3:58 PM REPAIRER WOOD FURNITURE) Anatomical Region Laterality Modality PFT 11/09/2024 3:56 PM REPAIRER WOOD FURNITURE Narrative 11/29/2024 4:32 PM CDT Table formatting from the original result was not included. [facility] BOARD CERTIFIED IN PULMONARY, CRITICAL CARE, AND SLEEP MEDICINE Merissa Jarrell MD [address] [place] [address] [id number] [place] [address] MD Chaz Ching MD Office [phone] Dorian Christie MD PULMONARY FUNCTION TESTING 6 [...] Certified in Pulmonary and Critical Care Medicine [phone] Please note that our PFT lab has [...] W DOPPLER/CF W CONTRAST (11/09/2024 3:43 PM REPAIRER WOOD FURNITURE) Anatomical Region Laterality Modality Ultrasound 11/09/2024 2:03 PM REPAIRER WOOD FURNITURE Narrative 11/09/2024 5:48 PM REPAIRER WOOD FURNITURE [facility] [address] [place] [address] ECHOCARDIOGRAM Patient Name: JUSTUS RODIRGUEZ : 1950 (74y 6m) Gender: M Study Date: 11/09/2024 02:03:35 PM Ht(Inch): 70 Wt(Lb): 251.99 BSA: 2.38 Faith Healer: Location: [address] Order Provider: EDWARD MCKEON [...] By: Edward Mckeon MD 11/09/2024 5:47:59 PM REPAIRER WOOD FURNITURE Procedure Note Edward Mckeon MD - 11/09/2024 [facility] [address] [place] [address] ECHOCARDIOGRAM Patient Name: JUSTUS RODRIGUEZ : 1950 (74y 6m) Gender: M Study Date: 11/09/2024 02:03:35 PM Ht(Inch): 70 Wt(Lb): 251.99 BSA: 2.38 Faith Healer: Location: [address] Order Provider: EDWARD MCKEON [...] By: Edward Mckeon MD 11/09/2024 5:47:59 PM REPAIRER WOOD FURNITURE Edward Mckeon MD CV ECHO PROCEDURES Final Result * FL Esophagram, Double Contrast (11/09/2024 12:16 PM REPAIRER WOOD FURNITURE) Anatomical Region Laterality Modality Body N/A Radio Fluoroscop y 11/09/2024 1:16 PM REPAIRER WOOD FURNITURE Impressions 11/09/2024 1:51 PM REPAIRER WOOD FURNITURE 1. Trace laryngeal penetration. No evidence of [...] Anil Randolph M.D. Narrative 11/09/2024 1:51 PM REPAIRER WOOD FURNITURE EXAMINATION: DOUBLE CONTRAST BARIUM ESOPHAGRAM 11/09/2024. HISTORY: [...] Result * CT TAVR (11/09/2024 11:50 AM REPAIRER WOOD FURNITURE) Anatomical Region Laterality Modality Chest N/A Computed Tomogra phy 11/09/2024 2:02 PM REPAIRER WOOD FURNITURE Impressions 11/09/2024 3:56 PM REPAIRER WOOD FURNITURE 1. Measurements as above 2. Left atrial [...] Popeye Becker M.D. Narrative 11/09/2024 3:56 PM REPAIRER WOOD FURNITURE EXAMINATION: Heart CT and CTA abdomen and [...] by: Popeye Becker M.D. Edward Mckeon MD [facility] PROCEDURES Final Result * (ABNORMAL) POCT creatinine for contrast evaluation (11/09/2024 10:46 AM REPAIRER WOOD FURNITURE) Creatinine, POC 2.0(A) 0.6 - 1.5 mg/dL Comment:eGFR: 35 Blood 11/09/2024 10:4 6 AM REPAIRER WOOD FURNITURE us Edward Mckeon MD POINT OF CARE TEST ORDERABLES Fi nal Result * (ABNORMAL) CBC with auto differential (11/06/2024 11:05 AM REPAIRER WOOD FURNITURE) WBC 1.9(L) 3.8 - 10.8 Thousand/u L [...] [facility] Blood 11/06/2024 11:0 5 AM REPAIRER WOOD FURNITURE 11/06/2024 11:05 AM REPAIRER WOOD FURNITURE us Edward Mckeon MD LAB BLOOD ORDERABLES Final Resul t [facility] [place] [address] [phone] * (ABNORMAL) Comprehensive metabolic panel (11/06/2024 11:05 AM REPAIRER WOOD FURNITURE) Glucose 102(H) 65 - 99 mg/dL [facility] [...] [facility] Blood 11/06/2024 11:0 5 AM REPAIRER WOOD FURNITURE 11/06/2024 11:05 AM REPAIRER WOOD FURNITURE us Edward Mckeon MD LAB BLOOD ORDERABLES Final Resul t [facility] [address] [address], [place] [phone] from Last 3 Months Insurance [facility] Address: [address] [address] [place] [address] MEDICARE MEDICARE COMMERCIAL GENERIC Member Subscriber Plan / Payer ( fective 2019-Present) Name:Justus Rodriguez Relation to Subscriber:Self Name:Justus Rodriguez Payer ID:[id number] Group ID:[id number] Type:COMMERCIAL Address: [address] MEDICARE [employer] Advance Directives For more information, please contact: [phone] * Full Code (Latest Code Status on File) Date Activated Date Inactivated Comments 2019 10:44 AM 04/27/2019 5:09 PM Care Teams Oracle Soa Developer Relationship Specialty Start Date End Date Leon Taylor MD [address] [place] [address] PCP - General 12/03/16 Bhavesh Valdez MD [address] [place] [address] [address] [place] [address] Consulting Physician Cardiology 08/26/23 Nolan Herron MD [address] [facility] [address] [place] [phone] Referring Physician Hematology 08/26/23
--- OUTSIDE RECORDS SUMMARY | 2024-12-18 13:12 | XMS_ITS | Clinical Summary ---
Author Organization [facility] Address [address] [facility] [place] [address] Care Team Providers Care Strap Sewer Name Role Phone Leon Taylor MD Primary Care Provider + Source Comments [facility],non-owned Affiliates and Associated Physician Practices is amultiple site organization consisting of ambulatory clinics and hospital sitesin [place], [place], [place] and [place]. This disclosure is being madepursuant to the Care Everywhere program and may not contain all information available regarding this patient. Last updated 18.[facility] Game [employer] Hockey Social History Tobacco Use Types Packs/Day Years [...] fective for All Dates) Name:Kamron Rodriguez Member ID:[id number] Relation to Subscriber:Self Name:Kamron Rodriguez Subscriber ID:[id number] Payer ID:Not on file Group ID:Not on file Type:Medicare Address: [place] [id number] MEDICARE SUPPLEMENT PAYOR GENERIC MEDICARE MEDICARE SUPPLEMENT PAYOR GENERIC * Guarantor: KAMRON RODRIGUEZ Account Type Relation to Patient Date of Phone Billing Address Personal/[place] [address] MEDICARE MEDICARE SUPPLEMENT PAYOR GENERIC Care Teams Strap Sewer Relationship Specialty Start Date End Date Leon Taylor MD NPI: [id number] [place] [id number] PCP - General 02/28/19
--- OUTSIDE RECORDS SUMMARY | 2024-12-18 13:12 | XMS_ITS | Encounter Summary ---
Author Organization [facility] Address [address] [facility] [place] [address] Care Team Providers Care Teleprinter Name Role Phone Leon Taylor MD Primary Care Provider + Encounter Details Date Type Department Care Team (Late st Contact Info) Description 05/05/2023 Lab Requisition [facility] - Pathology Lab [address] [place] [id number] Dorian Flynn MD [address] [address] Anemia, unspecified Social History Tobacco [...] AM CDT) Case Report Flow Cytometry Case: [id number] Authorizing Provider: Dorian Flynn MD Collected: 05/05/2023 09:15 AM Ordering Location: [facility] Care Pathology Lab Received: 05/05/2023 01:34 PM Pathologist: Munir Espinoza MD Specimen: Bone Marrow 05/05/2023 4:54 PM CDT [facility] PATH[facility] Final Diagnosis Bone marrow, flow cytometric immunophenotypic analysis: - No evidence of non-Hodgkin lymphoma or high-grade myeloid neoplasm. - See interpretation. Correlation with clinical findings, corresponding bone marrow biopsy, cytogenetic/molecu lar studies is required. 05/05/2023 4:54 PM [facility] PATHOLOGY LAB Flow Cytometry Interpretation Viability: 90% - Lymphocytes (17% of events) B-cells (5% of lymphocyes): polytypic, kappa:lambda ratio 1.6:1 T-cells (85% of lymphocytes): no immunophenotypic aberrancy detected - dimCD45 gate (5% of events) 2.3% of CD34 + blasts detected, express CD33 and CD13 with enrollment services vice president maturation. Plasma cells: polytypic, kappa:lambda ratio 1.5:1 no immunophenotypic aberrancy detected MRD sent: no A bone marrow aspirate smear prepared from the flow cytometry specimen has been reviewed for quality project manager purposes. 05/05/2023 4:54 PM [facility] PATH[facility] Flow Cytometry Results Differential Result Comment Flow Cell Count /uL 36,800 Total Viability % 90.0 Lymphocytes % 17 Dim CD45 Region % 5 Monocytes % 8 Granulocytes % 69 05/05/2023 4:54 PM CDT [facility] PATH[facility] Reason for test Anemia, unspecified 285.9 05/05/2023 4:54 PM [facility] PATH[facility] Client Specimen ID # [id number] 05/05/2023 4:54 PM [facility] PATH[facility] Number of markers 14 were performed. A-2 Flow CD10 A-3 Flow CD13 A-5 Flow CD20 A-13 Flow CD117 A-14 FLOW CD138 A-1 Flow CD5 A-4 Flow CD19 A-6 Flow CD33 A-7 Flow CD34 A-8 Flow CD45 A-11 Flow CD38 A-12 Flow CD56 A-9 [place]+CD19+ A-10 Lambda+CD19+ 05/05/2023 4:54 PM [facility] PATH[facility] Pathologist Location at [facility] 05/05/2023 4:54 PM [facility] PATH[facility] LAB Disclaimer Test performed at [facility], [address] [place] [address], [address]. *The established laboratory minimum viability is 70%. [...] complexity clinical testing. 05/05/2023 4:54 PM CDT [facility] PATHOLOGY LAB Embedded Images 4:54 PM CDT [facility] PATHOLOGY LAB Pathology/Cytolo gy BONE MARROW SPECIMEN / Unknown 05/05/2023 9:15 AM CDT 05/05/2023 1:34 PM CDT Dorian Flynn MD LAB - PATHOLOGY/CYTOLOGY ORDERAB LES Final Result [facility] PATHOLOGY LAB [address] [phone] documented in this encounter Visit Diagnoses Diagnosis Anemia, unspecified documented in this encounter Care Teams Teleprinter Relationship Specialty Start Date End Date Leon Taylor MD [address] [address] PCP - General 02/28/19 documented as of this encounter
--- OUTSIDE RECORDS SUMMARY | 2024-12-18 13:12 | XMS_ITS | Encounter Summary ---
Author Organization [facility] Address [address] [facility] [place] [address] Care Team Providers Care Advance Scout Name Role Phone Leon Taylor MD Primary Care Provider + Encounter Details Date Type Department Care Team (Late st Contact Info) Description 05/10/2023 Lab Requisition [facility] - Pathology Lab [address] [place] [phone] Dorian Flynn MD [address] [address] Illness, unspecified Social History Tobacco [...] Report Bone Marrow Patholog y Report Case: [id number] Authorizing Provider: Dorian Flynn MD Collected: 05/05/2023 09:15 AM Ordering Location: [facility] Care Pathology Lab Received: 05/10/2023 09:44 AM [...] blood smear: - Pancytopenia 05/10/2023 5:09 PM [facility] PATH[facility] Comment Correlation with clinical findings, imaging and cytogenetic/molecular testing is required. 05/10/2023 5:09 PM [facility] PATH[facility] Peripheral Smear Description RBC: normocytic and hypochromic anemia WBC: marked leukopenia with absolute lymphopenia, no circulating blasts seen Platelets: decreased in number 05/10/2023 5:09 PM [facility] PATH[facility] Bone Marrow Aspirate Specimen quality: adequate Spicules: present Trilineage Hematopoiesis: present Myeloid:Erythroid ratio: normal Myeloid Maturation: normal Erythroid Maturation: normal Megakaryocyte morphology:normal Storage iron (by special stain): decreased Sideroblastic iron (by special stain): absent 05/10/2023 5:09 PM [facility] PATH[facility] Bone Marrow Core Biopsy [...] (by special stain): absent 05/10/2023 5:09 PM [facility] Flow Cytometry Summary Bone marrow, flow cytometric immunophenotypic analysis ([id number]): - No evidence of non-Hodgkin lymphoma or high-grade myeloid neoplasm. 05/10/2023 5:09 PM [facility] PATH[facility] Clinical History 73 year-old male with pancytopenia. 05/10/2023 5:09 PM [facility] Pathologist Location at [facility] 05/10/2023 5:09 PM [facility] PATH[facility] Disclaimer The performance characteristics of all immunohistochemical and indirect immunofluorescence stains (if any) cited in this report were determined by the Histopathology Laboratory of [facility]. Some of these tests were developed by [...] attending (teaching) pathologist. 05/10/2023 5:09 PM CDT [facility] PATHOLOGY LAB Embedded Images 05/10/2023 5:09 PM CDT [facility] PATH[facility] LAB Pathology/Cytology BONE MARROW SPECIMEN / Unknown 05/05/2023 9:15 AM CDT 05/10/2023 9:44 AM CDT Miscellaneous samples (specimen) BONE MARROW SPECIMEN / Unknown 05/05/2023 9:15 AM CDT 05/10/2023 9:44 AM CDT Dorian Flynn MD LAB - PATHOLOGY/CYTOLOGY ORDERAB LES Final Result [facility] PATHOLOGY LAB [address] [phone] documented in this encounter Visit Diagnoses Diagnosis Illness, unspecified documented in this encounter Care Teams Advance Scout Relationship Specialty Start Date End Date Leon Taylor MD [address] [address] PCP - General 02/28/19 documented as of this encounter
--- OUTSIDE RECORDS SUMMARY | 2024-12-18 13:12 | XMS_ITS | Clinical Summary ---
Author Organization [facility] Address [address] [place] [address] Care Team Providers Care Core Microarchitect Name Role Phone Leon Taylor MD Primary Care Provider [phone] Allergies No known active allergies Medications Eliquis [...] 12/11/2024 4:15 PM CDT Telephone Check Up [facility] Oncology and Hematology - [place] [address] [place] [address] Nolan Herron MD 12/11/2024 External Device Data STL ABSTRACTION Provider, Abstract 12/10/2024 Orders Only [facility] Oncology and Hematology - [place] [address] [place] [address] Nolan Hreron MD 11/27/2024 1:15 PM CDT Office Visit [facility] Oncology and Hematology [facility] [address] [place] [address] Nolan Herron MD Chronic anemia (Primary Dx); Mass of breast, unspecified laterality 11/21/2024 External Device Data STL ABSTRACTION Provider, Abstract 11/21/2024 Orders Only [facility] Oncology and Hematology [facility] [address] [place] [address] Nolan Herron MD 11/12/2024 External Device Data [...] Description 06/17/2025 10:15 AM CDT Office Visit [facility] Oncology and Hematology - [place] [address] [place] [address] Nolan Herron MD [address] [facility] [address] [place] [address] Health Maintenance Due Date Last [...] lt from Last 3 Months Insurance [facility] MEDICARE PART A AND B Care Teams Core Microarchitect Relationship Specialty Start Date End Date Leon Taylor MD PCP - General Family Practice 04/22/23
--- OUTSIDE RECORDS SUMMARY | 2024-12-18 13:12 | XMS_ITS | Encounter Summary ---
Author Organization [facility] Healthcare Address [address] [place] [address] Care Team Providers Care Cook Vacuum Kettle Name Role Phone Leon Taylor MD Primary Care Prov ider Bhavesh Valdez MD Unavailable [phone] Nolan Herron MD Unavailable [phone] Encounter Details Date Type Department Care Team (Late st Contact Info) Description 12/17/2024 Telephone [facility] Medical Group Cardiology [address] [place] [address] Bhavesh Valdez MD [address] [place] [address] Social History Tobacco Use Types [...] on file 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 Pt has a wound on Right lower calf. It is oozing mostly clear fluid. He is keeping is covered during the day and using neosporin. He is wondering if he can up his water pill to get rid of the excess water weight. Please call backat [phone]. documented in this encounter Plan of Treatment Not on file documented as of this encounter Visit Diagnoses Not on filedocumented in this encounter Care Teams Cook Vacuum Kettle Relationship Specialty Start Date End Date Leon Taylor MD [address] [place] [address] PCP - General 12/03/16 Bhavesh Valdez MD [address] [facility] [address] [place] [address] Consulting Physician Cardiology 08/26/23 Nolan Herron MD [address] [facility] [address] [place] [address] Referring Physician Hematology 08/26/23 documented as of this encounter
--- OUTSIDE RECORDS SUMMARY | 2024-12-18 13:12 | XMS_ITS | Encounter Summary ---
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
--- OUTSIDE RECORDS SUMMARY | 2024-12-18 13:12 | XMS_ITS | Encounter Summary ---
Author Organization [facility] Healthcare Address [address] [place] [address] Care Team Providers Care Senior Architect/Design Manager Name Role Phone Leon Taylor MD Primary Care Prov ider Bhavesh Valdez MD Unavailable [phone] Nolan Herron MD Unavailable [phone] Reason for Visit * Reason Comments Follow-up Edema and open sores on legs x 6 weeks Atrial Fibrillation Shortness of Breath Encounter Details Date Type Department Care Team (Late st Contact Info) Description 12/18/2024 11:00 AM CDT Office Visit [facility] Medical Group Cardiology [address] [place] [address] [address] [place] [address] Liliana Bynum NP [address] [place] [address] Arrived Social History Tobacco Use [...] on file 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
--- OUTSIDE RECORDS SUMMARY | 2024-12-18 13:12 | XMS_ITS | Referral Summary ---
Author Organization [facility] [address] [place] [address] [address] [facility] [address] [place] [address] Care Team Providers Care Director Digital Marketing Name Role Phone Leon Taylor MD Primary Care Prov ider Bhavesh Valdez MD Unavailable [phone] Nolan Herron MD Unavailable [phone] Encounters Date Type Department Care Team Description 12/18/2024 11:00 AM CDT Office Visit [facility] Medical [facility] Cardiology [address] [place] [address] Liliana Bynum NP Arrived 12/17/2024 Telephone [facility] Cardiology [address] [place] [address] Bhavesh Valdez MD 12/13/2024 12:06 PM CDT Anesthesia Event [facility] Heart [address] [address] Denia Olivares MD Fitterer, Morgan Elisabeth, CRNA 12/13/2024 10:24 AM CDT - 12/13/2024 11:59 PM CDT Hospital Encounter [facility] [address] [place] [phone] Bhavesh Washington MD Nonrheumatic tricuspid valve regurgitation Discharge Disposition: Discharge to home or self care 12/10/2024 Telephone [facility] Cardiology [address] [place] [address] [address], [place] [address] Edward Mckeon MD MARCE Tricuspid Scheduling 12/03/2024 Results Follow-Up [facility] Cardiology [address] [place] [address] [address] [place] [address] Veena Balderas MA 11/09/2024 10:00 AM ORACLE FUSION MIDDLEWARE ARCHITECT - 11/09/2024 11:59 PM ORACLE FUSION MIDDLEWARE ARCHITECT Hospital Encounter [facility] - Imaging [address] [place] [phone] Edward Mckeon MD Dysphagia, unspecified type Discharge Disposition: Discharge to home or self care 11/09/2024 10:27 AM ORACLE FUSION MIDDLEWARE ARCHITECT - 11/09/2024 11:59 PM ORACLE FUSION MIDDLEWARE ARCHITECT Hospital Encounter [facility] - Imaging [address] [place] [phone] Edward Mckeon MD Nonrheumatic tricuspid valve regurgitation; Abnormal result of cardiovascular function study, unspecified Discharge Disposition: Discharge to home or self care 11/09/2024 3:00 PM ORACLE FUSION MIDDLEWARE ARCHITECT - 11/09/2024 11:59 PM ORACLE FUSION MIDDLEWARE ARCHITECT Hospital Encounter [facility] [address] [place] [phone] Nonrheumatic tricuspid valve regurgitation Discharge Disposition: Discharge to home or self care 11/09/2024 2:00 PM ORACLE FUSION MIDDLEWARE ARCHITECT - 11/09/2024 11:59 PM ORACLE FUSION MIDDLEWARE ARCHITECT Hospital Encounter [facility] OP Cardiac Testing [address] [place] [address] [address] [place] [address] Nonrheumatic tricuspid valve regurgitation Discharge Disposition: Discharge to home or self care 10/29/2024 Telephone [facility] Cardiology [address] [place] [address] [address], [place] [address] Edward Mckeon MD SCHEDULE TRICUSPID MARCE 10/29/2024 10:00 AM ORACLE FUSION MIDDLEWARE ARCHITECT Office Visit [facility] Cardiology [address] [place] [address] [address] [phone] Edward Mckeon MD Persistent atrial fibrillation (HCC) [...] (05/25/2019): Added automatically from request for surgery [id number] Assessment & Plan (08/25/2023 5:27 PM ORACLE FUSION MIDDLEWARE ARCHITECT): The patient is status post catheter ablation [...] with atrial fibrillation: a report of the [place] [employer]/[place] [employer] Association Task Force on Practice Guidelines [...] CABG (coronary artery bypass graft) 04/05/20 17 skilled nursing (current) use of anticoagulants [Z79.0 1] 02/16/2017 Assessment & Plan (08/25/2023 5:28 PM ORACLE FUSION MIDDLEWARE ARCHITECT): The patient has atrial fibrillation with an elevated [id number] score (3). Based on this, systemic anticoagulation [...] of Atrial Fibrillation: A Report of the [place] [employer] of [employer]iology/ [place] [employer] Association Joint Committee on Clinical Practice Guidelines. Circulation 2022;148: e42 Class IIA: In patients with AF, a moderate to high risk of stroke ([id number] score >=2), and a contraindication to long-term oral anticoagulation due to a nonreversible cause, percutaneous LAAO (pLAAO) is reasonable Hypertension 10/15/2014 Chronic coronary artery disease 09/30/2014 Resolved Problems Problem Noted Date Diagnosed Date Resolved Date A-fib 02/07/2024 03/21/2024 Paroxysmal atrial fibrillation ([facility]/H[facility]) 03/30/2019 06/29/2022 Overview (03/30/2019): Added automatically from request for surgery [id number] Atrial fibrillation ([facility]) [I48.91] 02/16/2017 06/29/2022 Immunizations Immunization [...] on file Legal Sex Male 8:52 PM ORACLE FUSION MIDDLEWARE ARCHITECT Gender Identity Not on file Sexual Orientation [...] on file Medical Devices Implanted Type Area Sas Programmer Device Identifier Shelf Expiration Date Model / Serial / Lot [employer] Brad Device Closure 27mm Lt Watchman Flx Pro Cardiac Strl [place] [id number] - [id number] - [id number] Implanted:Qty: 1 on 02/07/2024 by Caleb Bonilla MD at [facility] Left Atrial Appendage Occluder [employer] Brad 12/07/2026 [id number] / [id number] / [id number] [employer] Vascade Mvp 6-12fr Venous Closure [id number] - [id number] - [id number] Implanted:Qty: 1 on 02/07/2024 by Caleb Bonilla MD at [facility] [employer] 11/23/2025 [id number] / [id number] / [id number] Procedures Procedure Name Priority Date/Time Associated [...] FUNCTION TEST (PFT) Routine 11/09/2024 3:58 PM ORACLE FUSION MIDDLEWARE ARCHITECT Nonrheumatic tricuspid valve regurgitation TRANSTHORACIC ECHO (TTE) COMPLETE W DOPPLER/CF W CONTRAST Routine 11/09/2024 3:43 PM ORACLE FUSION MIDDLEWARE ARCHITECT Nonrheumatic tricuspid valve regurgitation FL ESOPHAGRAM, DOUBLE CONTRAST Schedule Routine, Read Routine (OP Routine) 11/09/2024 12:16 PM ORACLE FUSION MIDDLEWARE ARCHITECT Dysphagia, unspecified type CT TAVR Schedule Routine, Read Routine (OP Routine) 11/09/2024 11:50 AM ORACLE FUSION MIDDLEWARE ARCHITECT Nonrheumatic tricuspid valve regurgitation Abnormal result of cardiovascular function study, unspecified POCT CREATININE FOR CONTRAST EVALUATION Routine 11/09/2024 10:46 AM ORACLE FUSION MIDDLEWARE ARCHITECT COMPREHENSIVE METABOLIC PANEL Routine 11/06/2024 11:05 AM ORACLE FUSION MIDDLEWARE ARCHITECT Nonrheumatic tricuspid valve regurgitation CBC WITH AUTO DIFFERENTIAL Routine 11/06/2024 11:05 AM ORACLE FUSION MIDDLEWARE ARCHITECT Nonrheumatic tricuspid valve regurgitation from Last 3 Months Results * TRANSESOPHAGEAL ECHO (MARCE) W DOPPLER/CF WO CONTRAST (12/13/2024 12:37 PM CDT) LV EF 60 % CONS SCIMAGE Anatomical Region Laterality Modality Echocardiography 12/13/2024 12:0 6 PM CDT Narrative 12/13/2024 1:19 PM CDT [facility] [address] [place] [address] TRANSESOPHAGEAL ECHOCARDIOGRAM Patient Name: JUSTUS RODRIGUEZ : 1950 (74y 7m) Gender: M Study Date: 12/13/2024 12:06:09 PM Ht(Inch): 70 Wt(Lb): 252.01 BSA: 2.38 Auto Body Straightener: FABI Location: [facility] Order Provider: EDWARD MCKEON BMI: 36.16 [...] Procedure Note Bhavesh Washington MD - 12/13/2024 [facility] [address] [place] [address] TRANSESOPHAGEAL ECHOCARDIOGRAM Patient Name: JUSTUS RODRIGUEZ : 1950 (74y 7m) Gender: M Study Date: 12/13/2024 12:06:09 PM Ht(Inch): 70 Wt(Lb): 252.01 BSA: 2.38 Auto Body Straightener: FABI Location: [facility] Order Provider: EDWARD MCKEON BMI: 36.16 [...] BLOOD ORDERABLES Final Resul t [facility] [address] [place] [address] * (ABNORMAL) Protime-INR (12/11/2024 1:48 PM CDT) INR 1.1 Lobo [email or web address] Ma Comment: Reference Range 0.9-1.1 Moderate-intensity Warfarin Therapy 2.0-3.0 Higher-intensity Warfarin Therapy 3.0-4.0 PT 12.2(H) 9.0 - 11.5 sec Lobo Ma Comment: For additional information, please refer to http://education.Diaspora/faq/YSJ637 (This link is being provided for informational/ educational purposes only.) Blood 12/11/2024 1:48 PM CDT 12/11/2024 1:48 PM CDT us Edward Mckeon MD LAB BLOOD ORDERABLES Final Resul t [facility] [address] [place] [address] * (ABNORMAL) Basic metabolic panel (12/11/2024 1:48 [...] BLOOD ORDERABLES Final Resul t [facility] [address] [id number] * Pulmonary Function Test - (11/09/2024 3:58 PM ORACLE FUSION MIDDLEWARE ARCHITECT) Anatomical Region Laterality Modality PFT 11/09/2024 3:56 PM ORACLE FUSION MIDDLEWARE ARCHITECT Narrative 11/29/2024 4:32 PM CDT Table formatting from the original result was not included. [facility] BOARD CERTIFIED IN PULMONARY, CRITICAL CARE, AND SLEEP MEDICINE Merissa Jarrell MD [address] [place] [address] [id number] [place] [address] MD Chaz Ching MD Office [phone] Dorian Christie MD PULMONARY FUNCTION TESTING 6 [...] Certified in Pulmonary and Critical Care Medicine [phone] Please note that our PFT lab has [...] W DOPPLER/CF W CONTRAST (11/09/2024 3:43 PM ORACLE FUSION MIDDLEWARE ARCHITECT) Anatomical Region Laterality Modality Ultrasound 11/09/2024 2:03 PM ORACLE FUSION MIDDLEWARE ARCHITECT Narrative 11/09/2024 5:48 PM ORACLE FUSION MIDDLEWARE ARCHITECT [facility] [address] [place] [address] ECHOCARDIOGRAM Patient Name: JUSTUS RODRIGUEZ : 1950 (74y 6m) Gender: M Study Date: 11/09/2024 02:03:35 PM Ht(Inch): 70 Wt(Lb): 251.99 BSA: 2.38 Auto Body Straightener: Location: [address] Order Provider: EDWARD MCKEON [...] By: Edward Mckeon MD 11/09/2024 5:47:59 PM ORACLE FUSION MIDDLEWARE ARCHITECT Procedure Note Edward Mckeon MD - 11/09/2024 [facility] Cardiac Testing Center [address] [place] [address] ECHOCARDIOGRAM Patient Name: JUSTUS RODRIGUEZ : 1950 (74y 6m) Gender: M Study Date: 11/09/2024 02:03:35 PM Ht(Inch): 70 Wt(Lb): 251.99 BSA: 2.38 Auto Body Straightener: Location: [address] Order Provider: EDWARD MCKEON [...] By: Edward Mckeon MD 11/09/2024 5:47:59 PM ORACLE FUSION MIDDLEWARE ARCHITECT us Edward Mckeon MD CV ECHO PROCEDURES Final Result * FL Esophagram, Double Contrast (11/09/2024 12:16 PM ORACLE FUSION MIDDLEWARE ARCHITECT) Anatomical Region Laterality Modality Body N/A Radio Fluoroscop y 11/09/2024 1:16 PM ORACLE FUSION MIDDLEWARE ARCHITECT Impressions 11/09/2024 1:51 PM ORACLE FUSION MIDDLEWARE ARCHITECT 1. Trace laryngeal penetration. No evidence of [...] Anil Randolph M.D. Narrative 11/09/2024 1:51 PM ORACLE FUSION MIDDLEWARE ARCHITECT EXAMINATION: DOUBLE CONTRAST BARIUM ESOPHAGRAM 11/09/2024. HISTORY: [...] Result * CT TAVR (11/09/2024 11:50 AM ORACLE FUSION MIDDLEWARE ARCHITECT) Anatomical Region Laterality Modality Chest N/A Computed Tomogra phy 11/09/2024 2:02 PM ORACLE FUSION MIDDLEWARE ARCHITECT Impressions 11/09/2024 3:56 PM ORACLE FUSION MIDDLEWARE ARCHITECT 1. Measurements as above 2. Left atrial [...] Popeye Becker M.D. Narrative 11/09/2024 3:56 PM ORACLE FUSION MIDDLEWARE ARCHITECT EXAMINATION: Heart CT and CTA abdomen and [...] creatinine for contrast evaluation (11/09/2024 10:46 AM ORACLE FUSION MIDDLEWARE ARCHITECT) Pathologist [facility] Creatinine, POC 2.0(A) 0.6 - 1.5 mg/dL Comment:eGFR: 35 Blood 11/09/2024 10:4 6 AM ORACLE FUSION MIDDLEWARE ARCHITECT us Edward Mckeon MD POINT OF CARE TEST ORDERABLES Fi nal Result * (ABNORMAL) CBC with auto differential (11/06/2024 11:05 AM ORACLE FUSION MIDDLEWARE ARCHITECT) Pathologist [facility] WBC 1.9(L) 3.8 - 10.8 Thousand/u L [...] [facility] Blood 11/06/2024 11:0 5 AM ORACLE FUSION MIDDLEWARE ARCHITECT 11/06/2024 11:05 AM ORACLE FUSION MIDDLEWARE ARCHITECT us Edward Mckeon MD LAB BLOOD ORDERABLES Final Resul t [facility] [address] [place] [address] * (ABNORMAL) Comprehensive metabolic panel (11/06/2024 11:05 AM ORACLE FUSION MIDDLEWARE ARCHITECT) Pathologist [facility] Glucose 102(H) 65 - 99 mg/dL [...] [facility] Blood 11/06/2024 11:0 5 AM ORACLE FUSION MIDDLEWARE ARCHITECT 11/06/2024 11:05 AM ORACLE FUSION MIDDLEWARE ARCHITECT Edward Mckeon MD LAB BLOOD ORDERABLES Final Resul t [facility] [address] [place] [address] from Last 3 Months Insurance [employer] MEDICARE MEDICARE COMMERCIAL GENERIC MEDICARE [facility] Advance Directives For more information, please contact: [phone] * Full Code (Latest Code Status on File) Date Activated Date Inactivated Comments 2019 10:44 AM 04/27/2019 5:09 PM Care Teams Director Digital Marketing Relationship Specialty Start Date End Date Leon Taylor MD [address] [place] [address] PCP - General 12/03/16 Bhavesh Valdez MD [address] [facility] [address] [place] [address] Consulting Physician Cardiology 08/26/23 Nolan Herron MD [address] [facility] [address] [place] [address] Referring Physician Hematology 08/26/23
--- NOTE | 2024-12-18 13:30 | PM.IMHP ---
H&P: HPI History of Present Illness Date/Time: 12/18/24 14:00 Chief Complaint: Leg swelling and shortness of breath. Narrative: This is a pleasant 74-year-old male with history of heart failure with preserved ejection fraction, persistent atrial fibrillation status post Watchman, coronary artery disease status post 3 vessel bypass, severe tricuspid regurgitation with plans recent discussion for transcatheter tricuspid valve replacement per Dr. Edward Lovett, pulmonary hypertension, hypertension, chronic kidney disease, iron deficiency anemia, pancytopenia secondary to splenomegaly, and benign prostatic hyperplasia who presented to the emergency department with complaints of shortness of breath and lower extremity swelling. The last 6 weeks he has noticed an increase in lower extremity edema which has become much worse over the past 2 weeks. He now appreciates an increase in abdominal girth and he is becoming more short of breath with exertion. He also reports mild orthopnea and decrease in appetite. He denies fever, cold and flu symptoms, chest and pleuritic pain, palpitations, nausea, vomiting, diarrhea, dysuria, and calf pain. In the ED: Vital signs were stable on arrival. Labs were significant for WBC count of 2.0, hemoglobin 9.7, platelet 104, BUN 32, creatinine 1.73, proBNP 13631, albumin 4.1. Chest x-ray showed central congestive changes and mild bibasilar pulmonary edema. EKG showed atrial fibrillation with a rate of [address] segment changes. He was given furosemide 40 mg IV and is being admitted in setting for further diuresis. Review of Systems Review of Systems: 12 systems were reviewed and are negative except for as per HPI. [facility] Past Medical History Medical History Hypertension Chronic kidney disease, stage 3 Osteoarthritis Gastroesophageal reflux disease Valvular heart disease Severe tricuspid regurgitation with plans for upcoming TTVR, mild mitral regurgitation, and mild aortic stenosis on echo in 06/2021. Heart failure with preserved ejection fraction Echo in 06/2021 showed normal LV size, moderate LVH, EF 65 to 70%, diastolic dysfunction, mild RV enlargement with hypokinesis, and biatrial enlargement. Benign prostatic hyperplasia Pancytopenia Secondary to splenomegaly. Bone marrow aspiration and biopsy in 04/2023 showed no evidence of mild dysplastic syndrome with normal male karyotype. Followed by Dr. Herron. C. difficile colitis (12/2020) Pulmonary hypertension Chronic anemia Hyperlipidemia Atrial fibrillation Persistent atrial fibrillation status post Watchman. Surgical History Surgical History Presence of Watchman left atrial appendage closure device History of cataract removal with insertion of prosthetic lens History of appendectomy History of coronary artery bypass graft x 3 (10/2014) History of total right knee replacement (2011) History of total left knee replacement History of right inguinal hernia repair (2009) With mesh with subsequent recurrence of hernia History of cardiac radiofrequency ablation (09/15/20) Family History Family History Sibling Atrial fibrillation Father Heart disease Mother Congestive heart failure Social History Social History Social History: Surrogate medical decision maker: Mariusz Rodriguez, brother ([phone]). Code status: Full code. Smoking status: Never smoker Second hand tobacco smoke exposure: No Alcohol intake: never Substance use: never Substance use type: does not use Do You Feel Safe in your Home?: Yes Lack of Transportation: No Lack of Food: Never True Current Housing: I Have Housing Concerned About Future Housing: No Difficulty Paying Gas/Electric Bills: No Difficulty Paying for Meds: No Currently Unemployed: No Education: Don't Know Difficulty w/ Childcare or Family Care: No Living arrangements: with family Additional living arrangements comments: Lives in [place]. Never , no children. Occupation/Education: retired Additional occupation/education comments: [employer]. Spiritual care concerns: No Agree to blood products: Yes Meds Home Medications and Allergies Home Medications ?Medication ?Instructions ?Recorded ?Confirmed ?Type allopurinol 300 mg tablet 300 mg PO DAILY #90 tabs 01/16/23 12/18/24 Rx losartan 50 mg tablet 50 mg PO DAILY #90 tabs 10/24/23 12/18/24 Rx oxybutynin chloride 5 mg tablet 5 mg PO DAILY #90 tabs 01/06/24 12/18/24 Rx doxazosin 8 mg tablet 8 mg PO BID #180 tabs 01/08/24 12/18/24 Rx tamsulosin 0.4 mg capsule 0.4 mg PO BID #180 caps 01/08/24 12/18/24 Rx propranolol 120 mg capsule,24 120 mg PO DAILY #90 caps 02/05/24 12/18/24 Rx hr,extended release apixaban 5 mg tablet (Eliquis) 5 mg PO BID #180 tabs 04/04/24 12/18/24 Rx ferrous sulfate 325 mg (65 mg 325 mg PO BID #180 tabs 04/04/24 12/18/24 Rx iron) tablet furosemide 40 mg tablet See Rx Instructions .Route 10/01/24 12/18/24 Rx .COMPLEX #180 tabs hydroxyzine HCl 10 mg tablet 10 mg PO QID PRN itching #60 tabs 12/14/24 12/18/24 Rx mecobalamin (vitamin B12) 1,000 1,000 mcg PO DAILY 12/18/24 12/18/24 History mcg chewable tablet Allergies Allergy/AdvReac Type Severity Reaction Status Date / Time No Known Allergies Allergy Verified 12/18/24 15:44 Vital Signs Vital Signs - 24 hr 12/18/24 11:47 12/18/24 11:47 Pulse Rate 87 Respiratory Rate 20 Blood Pressure 136/72 Pulse Oximetry 98 98 Oxygen Delivery Room Air Exam Narrative: General: Chronically ill-appearing male lying on his left side in bed in no acute distress. Weight: 123.4 kg. BMI: 39.0. HEENT: Hard of hearing. PERRL, EOMI. Sclera anicteric. Tacky mucous membranes. Neck: Supple. Exam limited due to neck circumference. No obvious JVD. Respiratory: Respirations are nonlabored. Scattered crackles heard bilaterally. Cardiovascular: Regular rate and rhythm with S1-S2. Systolic murmur at the left sternal border. Gastrointestinal: Abdomen is soft and nontender with positive bowel sounds. Skin: Warm and dry. Lower extremities are wrapped and patient reports that they were weeping with some shallow wounds. Wraps were not removed for examination. Scattered bruising on the upper extremities. There is a larger bruise over the posterior right elbow. Scattered excoriations on the upper extremities. Extremities: No cyanosis or clubbing. Pitting bilateral lower extremity edema. Neurological: Alert. Cranial nerves 2-12 are grossly intact. No gross focal deficits to casual conversation. Psychiatric: Pleasant and cooperative with normal mood and affect. H&P: Results Labs Labs: Short CBC 04/15/25 Range/Units 11:54 WBC 2.0 L (4.5-10.0) K/mm3 Hgb 9.7 L (14.0-18.0) g/dL Hct 32.7 L (42.0-52.0) % Plt Count 104 L (150-375) k/mm3 BMP 12/18/24 11:54 Sodium 137 Potassium 4.5 Chloride 103 Carbon Dioxide 24 BUN 32 H Creatinine 1.73 H Glucose 105 Calcium 8.6 Liver Function 12/18/24 Range/Units 11:54 Total Bilirubin 0.8 (0.2-1.3) mg/dL AST 20 (17-59) U/L ALT 14 (6-50) U/L Alkaline Phosphatase 60 (38-126) U/L Albumin 4.1 (3.5-5.1) g/dL Imaging Chest X-Ray 12/18/24 12:33 Impression: 1. Central congestive change and mild bibasilar pulmonary edema. 2. Cardiomegaly. Assessment and Plan Assessment and plan (1) Acute on chronic congestive heart failure: Code(s): I50.9 - Heart failure, unspecified Status: Acute (2) Severe tricuspid regurgitation: Code(s): I07.1 - Rheumatic tricuspid insufficiency Status: Acute (3) Chronic kidney disease, stage 3: Code(s): N18.30 - Chronic kidney disease, stage 3 unspecified Status: Acute (4) Pancytopenia: Code(s): D61.818 - Other pancytopenia Status: Acute (5) Hypertension: Code(s): I10 - Essential (primary) hypertension Status: Acute (6) Benign prostatic hyperplasia: Code(s): N40.0 - Benign prostatic hyperplasia without lower urinary tract symptoms Status: Acute Plan The patient presented to the emergency department with complaints of increasing lower extremity edema and shortness of breath as detailed in HPI. Labs, imaging, EKG, and all reports were personally reviewed. Clinically he is volume overloaded and will be diuresed with close monitoring of volume status, renal function, and electrolytes. He has recently met with Dr. Edward Lovett at [facility] to discuss possible transcatheter tricuspid valve replacement with workup pending. I will ask Dr. Valdez to see him in consultation for further recommendations. No need to repeat echocardiogram which was done at another facility very recently. Renal function is stable on review of previous labs. He has chronic pancytopenia, felt to be related to splenomegaly per Hematology, which is also stable. Blood pressures are reasonable. Other chronic medical conditions are reportedly well controlled on home medications. His medications will be reviewed and resumed as appropriate. Findings and treatment plan were discussed with the patient. Questions were solicited and answered to satisfaction. The patient's medical management will be taken over by the hospitalist team in a.m. Quality VTE Prophylaxis VTE prophylaxis: pharmacologic ordered (on apixaban) Hospitalist [facility] Advance Care Plan I have confirmed that the patient's Advanced Care Plan is present, code status is documented, or surrogate decision maker is listed in patient medical record.: Yes Medication Reconciliation I have utilized all available resources to obtain, update and review the patients current medications (includes all prescriptions, OTC, herbals, cannabis, and nutritional supplements).: Yes
[2024-12-18 13:39] VITALS: BP 135/73; PULSE 93; RESP 18; O2SAT 100
[2024-12-18 15:11] VITALS: BP 117/63; PULSE 80; RESP 20; O2SAT 100
[2024-12-18 15:22] VITALS: BMI 39.0
--- NOTE | 2024-12-18 16:38 | PM.CNCAR ---
Assessment and Plan Assessment and plan (1) Acute on chronic heart failure with preserved ejection fraction: Code(s): I50.33 - Acute on chronic diastolic (congestive) heart failure Status: Acute (2) Hypertension: Code(s): I10 - Essential (primary) hypertension Status: Acute (3) Severe tricuspid regurgitation: Code(s): I07.1 - Rheumatic tricuspid insufficiency Status: Acute (4) Atherosclerotic heart disease of [place] coronary artery without angina pectoris: Code(s): I25.10 - Atherosclerotic heart disease of [place] coronary artery without angina pectoris Status: Acute (5) Presence of aortocoronary bypass graft: Onset Date: 2014 Code(s): Z95.1 - Presence of aortocoronary bypass graft Status: Acute (6) Atrial fibrillation: Code(s): I48.91 - Unspecified atrial fibrillation Status: Chronic (7) Hyperlipidemia: Code(s): E78.5 - Hyperlipidemia, unspecified Status: Chronic (8) Chronic anticoagulation: Code(s): Z79.01 - snf (current) use of anticoagulants Status: Acute Plan 74-year-old male patient with history of CAD status post CABG x3 ([place] to LAD, radial artery graft to OM1, SVG to RCA), hypertension, severe tricuspid regurgitation with plan for TTVR in the near future [place] [facility] [place]. Lovett, heart failure with preserved ejection fraction (LVEF 65-70%), severe pulmonary hypertension, hyperlipidemia, persistent atrial fibrillation status post Watchman status post pulmonary vein isolation with records, hypertension, CKD stage 3, GERD, osteoarthritis, BPH, pancytopenia presents with chief complaints of worsening shortness of breath and leg swelling. Acute on chronic heart failure with preserved ejection fraction Severe TR -TTE -IV diuresis with Lasix 40 mg b.i.d. -continue propranolol -add SGLT 2 inhibitor -monitor weight, ins and outs, and renal function daily -check and replace electrolytes as needed to keep K greater than 4 and Mg greater than 2 -monitor H&H and keep hemoglobin more than 8 -continue other home cardiac medications History of Present Illness History of Present Illness Consult date/time: 12/18/24 16:38 Reason For Visit: chf exac,pulm edema Narrative: 74-year-old male patient with history of CAD status post CABG x3 ([place] to LAD, radial artery graft to OM1, SVG to RCA), hypertension, severe tricuspid regurgitation with plan for TTVR in the near future at [facility] [place] with Dr. Lovett, heart failure with preserved ejection fraction (LVEF 65-70%), severe pulmonary hypertension, hyperlipidemia, persistent atrial fibrillation status post Watchman status post pulmonary vein isolation with records, hypertension, CKD stage 3, GERD, osteoarthritis, BPH, pancytopenia presents with chief complaints of worsening shortness of breath and leg swelling. Both shortness of breath and lower extremity swelling have increased over the past 6 weeks. No chest pain, palpitations, dizziness, lightheadedness, presyncope, syncope. Workup: WBC: 2.0 Hemoglobin: 9.7 Platelet: 104,000 Creatinine: 1.73 BUN: 32 BNP: 11,100 EKG: Atrial fibrillation, ventricular rate 89 Chest x-ray: Bibasilar pulmonary edema Review of Systems Review of Systems: Complete review of systems was performed and negative other than those mentioned HPI [facility] Past Medical History Medical History (Updated 12/18/24 @ 16:42 by Hyun aFria MD) Hypertension Chronic kidney disease, stage 3 Osteoarthritis Gastroesophageal reflux disease Valvular heart disease Severe tricuspid regurgitation with plans for upcoming TTVR, mild mitral regurgitation, and mild aortic stenosis on echo in 06/2021. Heart failure with preserved ejection fraction Echo in 06/2021 showed normal LV size, moderate LVH, EF 65 to 70%, diastolic dysfunction, mild RV enlargement with hypokinesis, and biatrial enlargement. Benign prostatic hyperplasia Pancytopenia Secondary to splenomegaly. Bone marrow aspiration and biopsy in 04/2023 showed no evidence of mild dysplastic syndrome with normal male karyotype. Followed by Dr. Herron. C. difficile colitis (12/2020) Pulmonary hypertension Chronic anemia Hyperlipidemia Atrial fibrillation Persistent atrial fibrillation status post Watchman. Surgical History Surgical History (Updated 12/18/24 @ 14:44 by Nataliia Chou PA-C) Presence of Watchman left atrial appendage closure device History of cataract removal with insertion of prosthetic lens History of appendectomy History of coronary artery bypass graft x 3 (10/2014) History of total right knee replacement (2011) History of total left knee replacement History of right inguinal hernia repair (2009) With mesh with subsequent recurrence of hernia History of cardiac radiofrequency ablation (09/15/20) Family History Family History Sibling Atrial fibrillation Father Heart disease Mother Congestive heart failure Social History Social History Social History: Surrogate medical decision maker: Mariusz Rodriguez, brother ([phone]). Code status: Full code. Smoking status: Never smoker Second hand tobacco smoke exposure: No Alcohol intake: never Substance use: never Substance use type: does not use Do You Feel Safe in your Home?: Yes Lack of Transportation: No Lack of Food: Never True Current Housing: I Have Housing Concerned About Future Housing: No Difficulty Paying Gas/Electric Bills: No Difficulty Paying for Meds: No Currently Unemployed: No Education: Don't Know Difficulty w/ Childcare or Family Care: No Living arrangements: with family Additional living arrangements comments: Lives in [place]. Never , no children. Occupation/Education: retired Additional occupation/education comments: [employer]. Spiritual care concerns: No Agree to blood products: Yes Meds Home Medications and Allergies Home Medications ?Medication ?Instructions ?Recorded ?Confirmed ?Type allopurinol 300 mg tablet 300 mg PO DAILY #90 tabs 01/16/23 12/18/24 Rx losartan 50 mg tablet 50 mg PO DAILY #90 tabs 10/24/23 12/18/24 Rx oxybutynin chloride 5 mg tablet 5 mg PO DAILY #90 tabs 01/06/24 12/18/24 Rx doxazosin 8 mg tablet 8 mg PO BID #180 tabs 01/08/24 12/18/24 Rx tamsulosin 0.4 mg capsule 0.4 mg PO BID #180 caps 01/08/24 12/18/24 Rx propranolol 120 mg capsule,24 120 mg PO DAILY #90 caps 02/05/24 12/18/24 Rx hr,extended release apixaban 5 mg tablet (Eliquis) 5 mg PO BID #180 tabs 04/04/24 12/18/24 Rx ferrous sulfate 325 mg (65 mg 325 mg PO BID #180 tabs 04/04/24 12/18/24 Rx iron) tablet furosemide 40 mg tablet See Rx Instructions .Route 10/01/24 12/18/24 Rx .COMPLEX #180 tabs hydroxyzine HCl 10 mg tablet 10 mg PO QID PRN itching #60 tabs 12/14/24 12/18/24 Rx mecobalamin (vitamin B12) 1,000 1,000 mcg PO DAILY 12/18/24 12/18/24 History mcg chewable tablet Allergies Allergy/AdvReac Type Severity Reaction Status Date / Time No Known Allergies Allergy Verified 12/18/24 15:44 Vital Signs Vital Signs - 24 hr 12/18/24 11:47 12/18/24 11:47 12/18/24 11:47 Pulse Rate 87 83 Respiratory Rate 20 20 Blood Pressure 136/72 136/72 Pulse Oximetry 98 98 94 Oxygen Delivery Room Air 12/18/24 13:39 12/18/24 15:11 12/18/24 16:21 Pulse Rate 93 80 Respiratory Rate 18 20 Blood Pressure 135/73 117/63 Pulse Oximetry 100 100 Oxygen Delivery Room Air Exam Narrative: General: Alert oriented x3, no acute distress Neck: Supple, JVD + Chest: Bilaterally clear to auscultation, no rales or rhonchi Cardiac: S1, S2 +, regular rate, regular rhythm, no murmurs or rubs Extremities: Bilateral lower extremity edema 2-3+, weeping skin, no skin rash Neurologic: Alert and oriented x3, no focal neurological deficits Results Labs and Meds 12/18/24 11:54 12/18/24 11:54 Lab results: Cardiac Enzymes 12/18/24 Range/Units 11:54 AST 20 (17-59) U/L CBC 12/18/24 Range/Units 11:54 WBC 2.0 L (4.5-10.0) K/mm3 RBC 3.62 L (4.6-6.20) M/mm3 Hgb 9.7 L (14.0-18.0) g/dL Hct 32.7 L (42.0-52.0) % Plt Count 104 L (150-375) k/mm3 Lymph # (Auto) 0.33 L (0.9-3.2) K/mm3 [place] # (Auto) 0.2 (0.1-0.6) K/mm3 Eos # (Auto) 0.1 (0-0.3) K/mm3 Baso # (Auto) 0.0 (0.0-0.1) K/mm3 Comprehensive Metabolic Panel 04/15/25 Range/Units 11:54 Sodium 137 (137-145) mmol/L Potassium 4.5 (3.4-5.0) mmol/L Chloride 103 (98-107) mmol/L Carbon Dioxide 24 (22-30) mmol/L BUN 32 H (9-20) mg/dL Creatinine 1.73 H (0.7-1.3) mg/dL Glucose 105 (65-110) mg/dL Calcium 8.6 (8.4-10.2) mg/dL AST 20 (17-59) U/L ALT 14 (6-50) U/L Alkaline Phosphatase 60 (38-126) U/L Total Protein 8.0 (6.3-8.2) g/dL Albumin 4.1 (3.5-5.1) g/dL Patient Weight 12/18/24 23:59 Weight 123.4 kg
[2024-12-18] MEDS: ACETAMINOPHEN 325 MG TABLET 650 MG PO (20:54)
[2024-12-18 22:00] VITALS: BP 111/44; PULSE 80; RESP 18; TEMP 36.2; O2SAT 99
[2024-12-18 22:36] VITALS: BP 103/65
[2024-12-18] MEDS: TAMSULOSIN HCL 0.4 MG CAPSULE PO (22:38)
[2024-12-18] MEDS: APIXABAN 5 MG TABLET PO (22:38)
[2024-12-18] MEDS: hydrOXYzine HCL 10 MG TABLET PO (22:39)
--- NOTE | 2024-12-19 | ECHO_ITS ---
Patient Info Name: Justus Rodriguez Age: 74 years : 1950 Gender: Male Ht: 70 in Wt: 266 lbs BSA: 2.49 m2 HR: 93 bpm BP: 102 / 51 mmHg Technical Quality: Good Exam Date: 12/19/2024 10:35 AM Exam Location: Echo Lab Patient Status: Inpatient Admit Date: 12/18/2024 Staff Ordering Physician: Hyun Faria MD ([email or web address]/[email or web address]) Corrosion Control Engineer: Gillian Benedict RDCS Attending Provider: Davin Castaneda MD Exam Type: CA echo doppler color flow Study Info Indications - Heart Failure Complete two-dimensional, color flow and Doppler transthoracic echocardiogram is performed with contrast to opacify the left ventricle and to improve the deliniation of the left ventricle endocardial borders. Contrast/Agitated Saline Contrast/Ag. Saline: Definity Amount: 2.00 ml Existing IV Access: Yes IV Access Condition: patent with no signs of infiltration Summary 1. The left ventricle is normal in size and systolic function. There is concentric left ventricular remodeling. The left ventricular ejection fraction is visually estimated to be 50-55%. There is abnormal paradoxical septal motion suggestive of either previous cardiac surgery or bundle branch block. 2. The right ventricle is mildly dilated with borderline normal systolic function. 3. The tricuspid valve opens well. There is severe tricuspid regurgitation. 4. Dilated inferior vena cava with <50% collapse upon inspiration consistent with significantly elevated right atrial pressure, 15 mmHg. 5. There is severe biatrial enlargement. Left Ventricle The left ventricle is normal in size and systolic function. There is concentric left ventricular remodeling. The left ventricular ejection fraction is visually estimated to be 50-55%. There is abnormal paradoxical septal motion suggestive of either previous cardiac surgery or bundle branch block. Right Ventricle The right ventricle is mildly dilated with borderline normal systolic function. Left Atria The left atrium is severely dilated. Right Atria The right atrium is severely dilated. Atrial Septum The atrial septum is normal. Aortic Valve The aortic valve is trileaflet and thickened but opens well. There is no aortic regurgitation. Pulmonic Valve The pulmonic valve is grossly normal. There is trace pulmonic valve regurgitation. Mitral Valve The mitral valve leaflets are thickened but opens well. There is mild mitral regurgitation. Tricuspid Valve The tricuspid valve opens well. There is severe tricuspid regurgitation. Pericardium/Pleural Pericardium is normal in appearance with no evidence for significant pericardial effusion. Inferior Vena Cava Dilated inferior vena cava with <50% collapse upon inspiration consistent with significantly elevated right atrial pressure, 15 mmHg. Aorta The aortic root at the level of the sinus of Valsalva measures 3.1 cm in diameter. Left Ventricular Outflow Tract Name Value Normal LVOT 2D LVOT Diameter 2.0 cm LVOT Doppler LVOT Peak Gradient 3 mmHg LVOT Mean Gradient 2 mmHg LVOT VTI 24 cm LVOT VTI/AV VTI Ratio 0.6 LVOT Stroke Volume 76 ml LVOT CO 12.3 l/min LVOT CI 4.9 l/min/m2 Pulmonic Valve Name Value Normal PV Doppler PV Peak Gradient 3 mmHg Mitral Valve Name Value Normal MV Doppler MV Decel [place] 707 cm/s2 MV PHT 50 ms MV Area (PHT) 4.4 cm2 4.0-5.0 MV Diastolic Function MV E Peak Velocity 122 cm/s MV A Peak Velocity 2 cm/s MV E/A 49.9 MV Decel Time 172 ms MV Annular TDI MV E/e' (Septal) 14.5 <=8.0 MV E/e' (Lateral) 9.0 <=8.0 MV E/e' (Average) 11.8 Tricuspid Valve Name Value Normal TV Regurgitation Doppler TR Peak Velocity 381 cm/s TR Peak Gradient 50 mmHg Estimated PAP/RSVP RA Pressure 15 mmHg <=5 PA Systolic Pressure 73 mmHg <36 RV Systolic Pressure 73 mmHg <36 Aorta Name Value Normal Ascending Aorta Ao Root Diameter (MM) 3.3 cm Ao Root Diam Index (MM) 1.3 cm/m2 Aortic Valve Name Value Normal AV Doppler AV Peak Velocity 188 cm/s AV Peak Gradient 10 mmHg AV Mean Gradient 6 mmHg AV VTI 41 cm AV Area (Cont Eq VTI) 1.9 cm2 >=3.0 AV Area (Cont Eq Cuco) 1.7 cm2 AV Regurgitation 2D LVOT Area 3.2 cm2 Ventricles Name Value Normal LV Dimensions 2D/MM IVS Diastolic Thickness (2D) 1.1 cm 0.6-1.0 LVID Diastole (2D) 4.8 cm 4.2-5.8 LVIW Diastolic Thickness (2D) 1.2 cm 0.6-1.0 LVID Systole (2D) 3.2 cm 2.5-4.0 LVOT Diameter 2.0 cm LV Mass (2D Cubed) 200.85 g 88.00-224.00 LV Mass Index (2D Cubed) 81 g/m2 49-115 Relative Wall Thickness (2D) 0.50 LV Fractional Shortening/Ejection Fraction 2D/MM LV Fractional Shortening (2D) 33 % 25-43 LV EF (2D Teicholz) 61 % 52-72 LV Diastolic Volume (4C MOD) 91 ml LV EF (4C MOD) 63 % LV Diastolic Volume (2C MOD) 126 ml LV EF (2C MOD) 75 % LV Diastolic Volume (BP MOD) 111 ml 62-150 LV Diastolic Volume Index (BP MOD) 45 ml/m2 34-74 LV Systolic Volume (BP MOD) 37 ml 21-61 LV Systolic Volume Index (BP MOD) 15 ml/m2 11-31 LV EF (BP MOD) 67 % 52-72 LV Diastolic Length (4C) 7.4 cm LV Systolic Length (4C) 6.0 cm LV Stroke Volume (4C MOD) 57 ml RV Dimensions 2D/MM RVID Diastole (2D) 5.6 cm 2.5-3.5 Atria Name Value Normal LA Dimensions LA Dimension (MM) 6.1 cm 3.0-4.1 LA Volume (4C A-L) 137 ml LA Volume (BP A-L) 151 ml RA Dimensions RA Area (4C) 34.9 cm2 <=18.0 Report Signatures
[2024-12-19 05:59] LABS: Basophils Percent Auto 0.6 % (0.2-1.2); Eosinophils Percent Auto 2.5 % (0-4.4); Hematocrit 29.5 % (42.0-52.0); Hemoglobin 8.8 g/dL (14.0-18.0); Immature Platelet Fraction Pct 1.5 % (0.9-11.2); Lymphocytes Absolute Auto 0.37 K/mm3 (0.9-3.2); Lymphocytes Percent Auto 23.6 % (18.3-44.2); Mean Corpuscular HGB Conc 29.8 g/dl (32-36); Mean Corpuscular Hemoglobin 27.1 pg (26-34); Mean Corpuscular Volume 90.8 fl (80-100); Mean Platelet Volume 9.7 fl (7.4-10.4); Monocytes Absolute Auto 0.2 K/mm3 (0.1-0.6); Monocytes Percent Auto 11.5 % (2.6-8.5); Neutrophils Percent Auto 61.8 % (45.5-73.1); Platelet Count Result 96 k/mm3 (150-375); Red Blood Count 3.25 M/mm3 (4.6-6.20); Red Cell Distribution Width 17.3 % (11.5-14.5)
[2024-12-19 06:00] VITALS: BP 102/51; PULSE 96; RESP 18; TEMP 36.5; O2SAT 98
[2024-12-19 06:08] LABS: Anion Gap 9 mmol/L (4-12); Blood Urea Nitrogen 31 mg/dL (9-20); Calcium 8.2 mg/dL (8.4-10.2); Carbon Dioxide 21 mmol/L (22-30); Chloride 105 mmol/L (98-107); Estimated CRCL calculation 45 ml/min; Estimated Glomerular Filt Rate 40; Glucose 93 mg/dL (65-110); Magnesium 2.3 mg/dL (1.6-2.3); Potassium 4.2 mmol/L (3.4-5.0); Sodium 135 mmol/L (137-145)
[2024-12-19] MEDS: hydrOXYzine HCL 10 MG TABLET PO ×3 (06:14→22:51)
[2024-12-19 07:36] LABS: White Blood Count 1.6 K/mm3 (4.5-10.0)
[2024-12-19 07:41] LABS: Platelet Estimate Slightly Decreased (Adequate); Schistocytes None Seen
[2024-12-19 07:42] LABS: Anisocytosis 1+; Ovalocytes 1+
[2024-12-19 08:17] VITALS: BP 119/63; PULSE 89; O2SAT 97
[2024-12-19] MEDS: LOSARTAN POTASSIUM 50 MG TABLET PO (08:19)
[2024-12-19] MEDS: DOXAZOSIN MESYLATE 4 MG TABLET 8 MG PO ×2 (08:19→16:44)
[2024-12-19] MEDS: allopurinoL 300 MG TABLET PO (08:19)
[2024-12-19] MEDS: APIXABAN 5 MG TABLET PO ×2 (08:19→20:29)
[2024-12-19] MEDS: FERROUS SULFATE 325 MG TABLET DR PO ×2 (08:19→16:44)
[2024-12-19] MEDS: oxyBUTYnin CHLORIDE 5 MG TABLET PO (08:19)
[2024-12-19] MEDS: PROPRANOLOL HCL 60 MG CAPSULE CR 120 MG PO (08:19)
[2024-12-19] MEDS: CYANOCOBALAMIN 1,000 MCG TABLET 1000 MCG PO (08:19)
[2024-12-19] MEDS: FUROSEMIDE INJ 40 MG/4 ML VIAL IV PUSH ×2 (08:19→16:44)
[2024-12-19] MEDS: TAMSULOSIN HCL 0.4 MG CAPSULE PO ×2 (08:19→16:43)
--- NOTE | 2024-12-19 09:48 | PM.IMPN ---
Progress Note: A&P Assessment and Plan (1) Acute on chronic congestive heart failure: Code(s): I50.9 - Heart failure, unspecified Status: Acute (2) Severe tricuspid regurgitation: Code(s): I07.1 - Rheumatic tricuspid insufficiency Status: Acute (3) Chronic kidney disease, stage 3: Code(s): N18.30 - Chronic kidney disease, stage 3 unspecified Status: Acute (4) Pancytopenia: Code(s): D61.818 - Other pancytopenia Status: Acute (5) Hypertension: Code(s): I10 - Essential (primary) hypertension Status: Acute (6) Benign prostatic hyperplasia: Code(s): N40.0 - Benign prostatic hyperplasia without lower urinary tract symptoms Status: Acute Plan The patient presented to the emergency department with complaints of increasing lower extremity edema and shortness of breath Acute on chronic heart failure with preserved ejection fraction Severe TR Pending TTE Continue IV diuresis with Lasix 40 mg b.i.d. -continue propranolol -add SGLT 2 inhibitor -monitor weight, ins and outs, and renal function daily -check and replace electrolytes as needed to keep K greater than 4 and Mg greater than 2 atrial fibrillation, CAD, severe tricuspid regurgitation status post Watchman, coronary artery disease status post 3 vessel bypass, severe tricuspid regurgitation with plans recent discussion for transcatheter tricuspid valve replacement per Dr. 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 Patient has loose stool today Exam Narrative: GENERAL: Obesity, in no acute distress. Well-nourished. - EYES: EOMI. Anicteric. - HENT: Moist mucous membranes. - LUNGS: Coarse breath sound bilateral base, no wheezing, rhonchi, or rales. - CARDIOVASCULAR: Regular rate and rhythm. No murmur. No JVD. - ABDOMEN: Soft, non-tender and non-distended. No palpable masses. - EXTREMITIES: Bilateral lower extremities, edema. Peripheral pulses 2+. Non-tender. - NEUROLOGIC: No focal neurological deficits. CN II-XII grossly intact. General weakness - PSYCHIATRIC: Awake, Alert and oriented x 3. Appropriate mood and affect. - SKIN: No rashes or lesions. Warm. - LYMPH: No cervical lymphadenopathy. Objective Data Vital Signs Vital Signs: Vital Signs - 24 hr 12/18/24 11:47 12/18/24 11:47 12/18/24 11:47 Temperature Pulse Rate 87 83 Respiratory Rate 20 20 Blood Pressure 136/72 136/72 Pulse Oximetry 98 98 94 Oxygen Delivery Room Air 12/18/24 13:39 12/18/24 15:11 12/18/24 16:21 Temperature Pulse Rate 93 80 Respiratory Rate 18 20 Blood Pressure 135/73 117/63 Pulse Oximetry 100 100 Oxygen Delivery Room Air 12/18/24 22:00 12/18/24 22:36 12/19/24 06:00 Temperature 97.1 F L 97.7 F Pulse Rate 80 96 Respiratory Rate 18 18 Blood Pressure 111/44 L 103/65 102/51 L Pulse Oximetry 99 98 Oxygen Delivery 12/19/24 08:17 Temperature Pulse Rate 89 Respiratory Rate Blood Pressure 119/63 Pulse Oximetry 97 Oxygen Delivery Intake/Output Intake/Output: Intake & Output 12/16/24 12/17/24 12/18/24 12/19/24 23:59 23:59 23:59 23:59 Intake Total 668 Output Total 200 Balance 468 Meds/Results Medications: Active Medications Generic Name Dose Route Start Last Admin Trade Name Freq PRN Reason Stop Dose Admin Acetaminophen 650 mg 12/18/24 14:49 12/18/24 20:54 Acetaminophen 325 Mg Tablet PO 650 mg Q6H PRN Administration Mild Pain (1-3) or Fever Allopurinol 300 mg 12/19/24 09:00 12/19/24 08:19 Allopurinol 300 Mg Tablet PO 300 mg DAILY TERRENCE Administration Apixaban 5 mg 12/18/24 21:05 12/19/24 08:19 Apixaban 5 Mg Tablet PO 5 mg Q12HR TERRENCE Administration Cyanocobalamin 1,000 mcg 12/19/24 09:00 12/19/24 08:19 Cyanocobalamin 1,000 Mcg Tablet PO 1,000 mcg DAILY TERRENCE Administration Doxazosin Mesylate 8 mg 12/18/24 21:05 12/19/24 08:19 Doxazosin Mesylate 4 Mg Tablet PO 8 mg BID TERRENCE Administration Ferrous Sulfate 325 mg 12/19/24 09:00 12/19/24 08:19 Ferrous Sulfate [address] PO 325 mg BID TERRENCE Administration Furosemide 40 mg 12/18/24 19:00 12/19/24 08:19 Furosemide Inj 40 Mg/4 Ml Vial IV PUSH 40 mg BID TERRENCE Administration Hydroxyzine HCl 10 mg 12/18/24 21:05 12/19/24 06:14 Hydroxyzine Hcl 10 Mg Tablet PO 10 mg QID PRN Administration itching Losartan Potassium 50 mg 12/19/24 09:00 12/19/24 08:19 Losartan Potassium 50 Mg Tablet PO 50 mg DAILY TERRENCE Administration Oxybutynin Chloride 5 mg 12/19/24 09:00 12/19/24 08:19 Oxybutynin Chloride 5 Mg Tablet PO 5 mg DAILY TERRENCE Administration Perflutren Lipid Microsphere 0 ml 12/18/24 14:33 Perflutren Lipid Microspheres 1.5 Ml Vial Diluted To 10 Ml Total Volume IV PUSH 12/21/24 14:33 ONCE PRN adequate visualization Protocol Perflutren Lipid Microsphere 0 ml 12/19/24 07:46 Perflutren Lipid Microspheres 1.5 Ml Vial Diluted To 10 Ml Total Volume IV PUSH 12/22/24 07:46 ONCE PRN adequate visualization Protocol Propranolol HCl 120 mg 12/19/24 09:00 12/19/24 08:19 Propranolol Hcl 60 Mg Capsule Cr PO 120 mg DAILY TERRENCE Administration Tamsulosin HCl 0.4 mg 12/18/24 21:10 12/19/24 08:19 Tamsulosin Hcl 0.4 Mg Capsule PO 0.4 mg BID TERRENCE Administration Radiology Results: ITS Impressions Chest X-Ray 12/18/24 12:33 Impression: Central congestive change and mild bibasilar pulmonary edema. Cardiomegaly. Labs Labs: Laboratory Results - last 24 hr 12/18/24 12/18/24 12/18/24 11:53 11:53 11:54 WBC 2.0 L RBC 3.62 L Hgb 9.7 L Hct 32.7 L MCV 90.3 MCH 26.8 MCHC 29.7 L RDW 17.2 H Plt Count 104 L MPV 9.4 Immature Gran % (Auto) 0.0 Neut % (Auto) 70.8 Lymph % (Auto) 16.9 L [place] % (Auto) 8.2 Eos % (Auto) 3.6 Baso % (Auto) 0.5 Lymph # (Auto) 0.33 L [place] # (Auto) 0.2 Eos # (Auto) 0.1 Baso # (Auto) 0.0 Abs Immat Gran (auto) 0.00 Absolute Neuts (auto) 1.4 Absolute Nucleated RBC 0.000 Band Neutrophils % Not Reportable Nucleated RBC % 0.0 Platelet Estimate Slightly decreased % Immature Plt Fraction 1.3 Hypochromasia 1+ Anisocytosis 1+ Microcytosis 1+ Ovalocytes Schistocytes Not Reportable Sodium 137 Potassium 4.5 Chloride 103 Carbon Dioxide 24 Anion Gap 10 BUN 32 H Creatinine 1.73 H Estim Creat Clear Calc 44 Estimated GFR 39 L Glucose 105 Calcium 8.6 Magnesium 2.3 Cancelled Total Bilirubin 0.8 AST 20 ALT 14 Alkaline Phosphatase 60 NT-Pro-B Natriuret Pep 09359 H Total Protein 8.0 Albumin 4.1 TSH (Reflex) 12/19/24 05:41 WBC 1.6 L* RBC 3.25 L Hgb 8.8 L Hct 29.5 L MCV 90.8 MCH 27.1 MCHC 29.8 L RDW 17.3 H Plt Count 96 L MPV 9.7 Immature Gran % (Auto) 0.0 Neut % (Auto) 61.8 Lymph % (Auto) 23.6 [place] % (Auto) 11.5 H Eos % (Auto) 2.5 Baso % (Auto) 0.6 Lymph # (Auto) 0.37 L [place] # (Auto) 0.2 Eos # (Auto) 0.0 Baso # (Auto) 0.0 Abs Immat Gran (auto) 0.00 Absolute Neuts (auto) 1.0 L Absolute Nucleated RBC 0.000 Band Neutrophils % Not Reportable Nucleated RBC % 0.0 Platelet Estimate Slightly decreased % Immature Plt Fraction 1.5 Hypochromasia Anisocytosis 1+ Microcytosis Ovalocytes 1+ Schistocytes None seen Sodium 135 L Potassium 4.2 Chloride 105 Carbon Dioxide 21 L Anion Gap 9 BUN 31 H Creatinine 1.69 H Estim Creat Clear Calc 45 Estimated GFR 40 L Glucose 93 Calcium 8.2 L Magnesium 2.3 Total Bilirubin AST ALT Alkaline Phosphatase NT-Pro-B Natriuret Pep Total Protein Albumin TSH (Reflex) 2.210
--- NOTE | 2024-12-19 10:53 | P.PNCA_ITS ---
Progress Note: A&P Assessment and Plan (1) Acute on chronic heart failure with preserved ejection fraction: Code(s): I50.33 - Acute on chronic diastolic (congestive) heart failure Status: Acute (2) Severe tricuspid regurgitation: Code(s): I07.1 - Rheumatic tricuspid insufficiency Status: Acute (3) Atherosclerotic heart disease of [place] coronary artery without angina pectoris: Code(s): I25.10 - Atherosclerotic heart disease of [place] coronary artery without angina pectoris Status: Acute (4) Presence of aortocoronary bypass graft: Onset Date: 2014 Code(s): Z95.1 - Presence of aortocoronary bypass graft Status: Acute (5) Atrial fibrillation: Code(s): I48.91 - Unspecified atrial fibrillation Status: Chronic (6) Hypertension: Code(s): I10 - Essential (primary) hypertension Status: Acute (7) Hyperlipidemia: Code(s): E78.5 - Hyperlipidemia, unspecified Status: Chronic Plan 74-year-old male patient with history of CAD status post CABG x3 ([place] to LAD, radial artery graft to OM1, SVG to RCA), hypertension, severe tricuspid regurgitation with plan for TTVR in the near future at [facility] with Dr. Lovett, heart failure with preserved ejection fraction (LVEF 65-70%), severe pulmonary hypertension, hyperlipidemia, persistent atrial fibrillation status post Watchman status post pulmonary vein isolation with records, hypertension, CKD stage 3, GERD, osteoarthritis, BPH, pancytopenia presents with chief complaints of worsening shortness of breath and leg swelling. MARCE in October 2024 showed LVEF 20 60% and torrential TR. Acute on chronic heart failure with preserved ejection fraction-decrease in lower extremity edema Severe TR-undergoing workup for the TTVR at [facility] -continue IV diuresis with Lasix 40 mg b.i.d. -continue propranolol and losartan -add SGLT 2 inhibitor -monitor weight, ins and outs, and renal function daily -check and replace electrolytes as needed to keep K greater than 4 and Mg greater than 2 -monitor H&H and keep hemoglobin more than 8 -continue other home cardiac medications Subjective Date/time seen: 12/19/24 10:53 Interval history: Reason for encounter: Acute on chronic heart failure preserved ejection fraction, severe TR Relevant history: 74-year-old male patient with history of CAD status post CABG x3 ([place] to LAD, radial artery graft to OM1, SVG to RCA), hypertension, severe tricuspid regurgitation with plan for TTVR in the near future at [facility] with Dr. Lovett, heart failure with preserved ejection fraction (LVEF 65-70%), severe pulmonary hypertension, hyperlipidemia, persistent atrial fibrillation status post Watchman status post pulmonary vein isolation with records, hypertension, CKD stage 3, GERD, osteoarthritis, BPH, pancytopenia presents with chief complaints of worsening shortness of breath and leg swelling. MARCE in October 2024 showed LVEF 20 60% and torrential TR. Interval history: Patient reports decreased lower extremity swelling. His abdomen feels distended. His breathing is much improved. Review of Systems Cardiovascular: Comments: As reported in the HPI Respiratory: Comments: As reported in the HPI Exam Narrative: General: Alert oriented x3, no acute distress Neck: Supple, JVD + Chest: Bilaterally clear to auscultation, no rales or rhonchi Cardiac: S1, S2 +, regular rate, regular rhythm, no murmurs or rubs Extremities: Bilateral lower extremity edema 2+, weeping skin, no skin rash Neurologic: Alert and oriented x3, no focal neurological deficits Objective Data Vital Signs Vital Signs: Vital Signs - 24 hr 12/18/24 11:47 12/18/24 11:47 12/18/24 11:47 Temperature Pulse Rate 87 83 Respiratory Rate 20 20 Blood Pressure 136/72 136/72 Pulse Oximetry 98 98 94 Oxygen Delivery Room Air 12/18/24 13:39 12/18/24 15:11 12/18/24 16:21 Temperature Pulse Rate 93 80 Respiratory Rate 18 20 Blood Pressure 135/73 117/63 Pulse Oximetry 100 100 Oxygen Delivery Room Air 12/18/24 22:00 12/18/24 22:36 12/19/24 06:00 Temperature 36.2 C L 36.5 C Pulse Rate 80 96 Respiratory Rate 18 18 Blood Pressure 111/44 L 103/65 102/51 L Pulse Oximetry 99 98 Oxygen Delivery 12/19/24 08:00 12/19/24 08:17 Temperature Pulse Rate 89 Respiratory Rate Blood Pressure 119/63 Pulse Oximetry 97 Oxygen Delivery Room Air Intake/Output Intake/Output: Intake & Output 12/16/24 12/17/24 12/18/24 12/19/24 23:59 23:59 23:59 23:59 Intake Total 668 860 Output Total 200 Balance 468 860 Meds/Results Medications: Active Medications Generic Name Dose Route Start Last Admin Trade Name Freq PRN Reason Stop Dose Admin Acetaminophen 650 mg 12/18/24 14:49 12/18/24 20:54 Acetaminophen 325 Mg Tablet PO 650 mg Q6H PRN Administration Mild Pain (1-3) or Fever Allopurinol 300 mg 12/19/24 09:00 12/19/24 08:19 Allopurinol 300 Mg Tablet PO 300 mg DAILY TERRENCE Administration Apixaban 5 mg 12/18/24 21:05 12/19/24 08:19 Apixaban 5 Mg Tablet PO 5 mg Q12HR TERRENCE Administration Cyanocobalamin 1,000 mcg 12/19/24 09:00 12/19/24 08:19 Cyanocobalamin 1,000 Mcg Tablet PO 1,000 mcg DAILY TERRENCE Administration Doxazosin Mesylate 8 mg 12/18/24 21:05 12/19/24 08:19 Doxazosin Mesylate 4 Mg Tablet PO 8 mg BID TERRENCE Administration Ferrous Sulfate 325 mg 12/19/24 09:00 12/19/24 08:19 Ferrous Sulfate [address] PO 325 mg BID TERRENCE Administration Furosemide 40 mg 12/18/24 19:00 12/19/24 08:19 Furosemide Inj 40 Mg/4 Ml Vial IV PUSH 40 mg BID TERRENCE Administration Hydroxyzine HCl 10 mg 12/18/24 21:05 12/19/24 06:14 Hydroxyzine Hcl 10 Mg Tablet PO 10 mg QID PRN Administration itching Losartan Potassium 50 mg 12/19/24 09:00 12/19/24 08:19 Losartan Potassium 50 Mg Tablet PO 50 mg DAILY TERRENCE Administration Oxybutynin Chloride 5 mg 12/19/24 09:00 12/19/24 08:19 Oxybutynin Chloride 5 Mg Tablet PO 5 mg DAILY TERRENCE Administration Perflutren Lipid Microsphere 0 ml 12/18/24 14:33 Perflutren Lipid Microspheres 1.5 Ml Vial Diluted To 10 Ml Total Volume IV PUSH 12/21/24 14:33 ONCE PRN adequate visualization Protocol Perflutren Lipid Microsphere 0 ml 12/19/24 07:46 Perflutren Lipid Microspheres 1.5 Ml Vial Diluted To 10 Ml Total Volume IV PUSH 12/22/24 07:46 ONCE PRN adequate visualization Protocol Propranolol HCl 120 mg 12/19/24 09:00 12/19/24 08:19 Propranolol Hcl 60 Mg Capsule Cr PO 120 mg DAILY TERRENCE Administration Tamsulosin HCl 0.4 mg 12/18/24 21:10 12/19/24 08:19 Tamsulosin Hcl 0.4 Mg Capsule PO 0.4 mg BID TERRENCE Administration Radiology Results: ITS Impressions Chest X-Ray 12/18/24 12:33 Impression: Central congestive change and mild bibasilar pulmonary edema. Cardiomegaly. Labs Labs: Laboratory Results - last 24 hr 12/18/24 12/18/24 12/18/24 11:53 11:53 11:54 WBC 2.0 L RBC 3.62 L Hgb 9.7 L Hct 32.7 L MCV 90.3 MCH 26.8 MCHC 29.7 L RDW 17.2 H Plt Count 104 L MPV 9.4 Immature Gran % (Auto) 0.0 Neut % (Auto) 70.8 Lymph % (Auto) 16.9 L Haines % (Auto) 8.2 Eos % (Auto) 3.6 Baso % (Auto) 0.5 Lymph # (Auto) 0.33 L Haines # (Auto) 0.2 Eos # (Auto) 0.1 Baso # (Auto) 0.0 Abs Immat Gran (auto) 0.00 Absolute Neuts (auto) 1.4 Absolute Nucleated RBC 0.000 Band Neutrophils % Not Reportable Nucleated RBC % 0.0 Platelet Estimate Slightly decreased % Immature Plt Fraction 1.3 Hypochromasia 1+ Anisocytosis 1+ Microcytosis 1+ Ovalocytes Schistocytes Not Reportable Sodium 137 Potassium 4.5 Chloride 103 Carbon Dioxide 24 Anion Gap 10 BUN 32 H Creatinine 1.73 H Estim Creat Clear Calc 44 Estimated GFR 39 L Glucose 105 Calcium 8.6 Magnesium 2.3 Cancelled Total Bilirubin 0.8 AST 20 ALT 14 Alkaline Phosphatase 60 NT-Pro-B Natriuret Pep 26059 H Total Protein 8.0 Albumin 4.1 TSH (Reflex) 12/19/24 05:41 WBC 1.6 L* RBC 3.25 L Hgb 8.8 L Hct 29.5 L MCV 90.8 MCH 27.1 MCHC 29.8 L RDW 17.3 H Plt Count 96 L MPV 9.7 Immature Gran % (Auto) 0.0 Neut % (Auto) 61.8 Lymph % (Auto) 23.6 Haines % (Auto) 11.5 H Eos % (Auto) 2.5 Baso % (Auto) 0.6 Lymph # (Auto) 0.37 L Haines # (Auto) 0.2 Eos # (Auto) 0.0 Baso # (Auto) 0.0 Abs Immat Gran (auto) 0.00 Absolute Neuts (auto) 1.0 L Absolute Nucleated RBC 0.000 Band Neutrophils % Not Reportable Nucleated RBC % 0.0 Platelet Estimate Slightly decreased % Immature Plt Fraction 1.5 Hypochromasia Anisocytosis 1+ Microcytosis Ovalocytes 1+ Schistocytes None seen Sodium 135 L Potassium 4.2 Chloride 105 Carbon Dioxide 21 L Anion Gap 9 BUN 31 H Creatinine 1.69 H Estim Creat Clear Calc 45 Estimated GFR 40 L Glucose 93 Calcium 8.2 L Magnesium 2.3 Total Bilirubin AST ALT Alkaline Phosphatase NT-Pro-B Natriuret Pep Total Protein Albumin TSH (Reflex) 2.210
[2024-12-19] MEDS: PERFLUTREN LIPID MICROSPHERES 1.5 ML VIAL DILUTED TO 10 ML TOTAL VOLUME IV PUSH (11:15)
--- NOTE | 2024-12-19 11:37 | IVDEFINITY ---
Prior to administration of IV Definity the patient was educated on the risks and benefits of the imaging enhancing agent including potential adverse side effects. The patient verbalized understanding. Allergies were verified. No exclusion criteria were identified and at least one of the following inclusion criteria were met: 1) physician request, 2) patient technically difficult to image (per the [place] [employer] guidelines of two or more segments not discernable within the apical view), or 3) questionable left ventricular function. ?
[2024-12-19 14:00] VITALS: BP 124/79; PULSE 74; RESP 18; TEMP 36.6; O2SAT 98
[2024-12-19 22:00] VITALS: BP 114/39; PULSE 84; RESP 18; TEMP 36.5; O2SAT 97
[2024-12-20] VITALS (13 sets, daily range): BP systolic 110–131; BP diastolic 52–67; PULSE 78–95; RESP 18–20; TEMP 36.5–36.9; O2SAT 93–97
[2024-12-20] MEDS: APIXABAN 5 MG TABLET PO ×2 (08:46→20:17)
[2024-12-20] MEDS: oxyBUTYnin CHLORIDE 5 MG TABLET PO (08:46)
[2024-12-20] MEDS: TAMSULOSIN HCL 0.4 MG CAPSULE PO ×2 (08:46→16:17)
[2024-12-20] MEDS: CYANOCOBALAMIN 1,000 MCG TABLET 1000 MCG PO (08:46)
[2024-12-20] MEDS: allopurinoL 300 MG TABLET PO (08:46)
[2024-12-20] MEDS: FERROUS SULFATE 325 MG TABLET DR PO ×2 (08:47→16:17)
[2024-12-20] MEDS: DOXAZOSIN MESYLATE 4 MG TABLET 8 MG PO ×2 (08:47→16:17)
[2024-12-20] MEDS: PROPRANOLOL HCL 60 MG CAPSULE CR 120 MG PO (08:47)
[2024-12-20] MEDS: LOSARTAN POTASSIUM 50 MG TABLET PO (08:47)
[2024-12-20] MEDS: FUROSEMIDE INJ 40 MG/4 ML VIAL IV PUSH (08:48)
--- NOTE | 2024-12-20 14:08 | PM.PNCARD ---
Progress Note: A&P Assessment and Plan (1) Acute on chronic heart failure with preserved ejection fraction: Code(s): I50.33 - Acute on chronic diastolic (congestive) heart failure Status: Acute (2) Severe tricuspid regurgitation: Code(s): I07.1 - Rheumatic tricuspid insufficiency Status: Acute (3) Atherosclerotic heart disease of [place] coronary artery without angina pectoris: Code(s): I25.10 - Atherosclerotic heart disease of [place] coronary artery without angina pectoris Status: Acute (4) Presence of aortocoronary bypass graft: Onset Date: 2014 Code(s): Z95.1 - Presence of aortocoronary bypass graft Status: Acute (5) Atrial fibrillation: Code(s): I48.91 - Unspecified atrial fibrillation Status: Chronic (6) Hypertension: Code(s): I10 - Essential (primary) hypertension Status: Acute (7) Hyperlipidemia: Code(s): E78.5 - Hyperlipidemia, unspecified Status: Chronic Plan 74-year-old male patient with history of CAD status post CABG x3 ([place] to LAD, radial artery graft to OM1, SVG to RCA), hypertension, severe tricuspid regurgitation with plan for TTVR in the near future at [facility] with Dr. Lovett, heart failure with preserved ejection fraction (LVEF 65-70%), severe pulmonary hypertension, hyperlipidemia, persistent atrial fibrillation status post Watchman status post pulmonary vein isolation with records, hypertension, CKD stage 3, GERD, osteoarthritis, BPH, pancytopenia presents with chief complaints of worsening shortness of breath and leg swelling. MARCE in October 2024 showed LVEF of 60% and torrential TR. TTE this admission shows LVEF 50-55%, septal motion consistent with prior cardiac surgery, severe TR, dilated IVC consistent with elevated RA pressure Acute on chronic heart failure with preserved ejection fraction-decrease in lower extremity edema Severe TR-undergoing workup for the TTVR at [facility] -he has some response to IV Lasix but he has lot of room to go- dilated IVC on echo, BL LE edema 2-3+. Recommend starting Lasix drip at 10 mg/hr -continue propranolol and losartan at home dose -add SGLT 2 inhibitor -monitor weight, ins and outs, and renal function daily -check and replace electrolytes as needed to keep K greater than 4 and Mg greater than 2 -monitor H&H and keep hemoglobin more than 8 -continue other home cardiac medications Subjective Date/time seen: 12/20/24 14:08 Interval history: Reason for encounter: Acute on chronic heart failure preserved ejection fraction, severe TR Relevant history: 74-year-old male patient with history of CAD status post CABG x3 ([place] to LAD, radial artery graft to OM1, SVG to RCA), hypertension, severe tricuspid regurgitation with plan for TTVR in the near future at [facility] with Dr. Lovett, heart failure with preserved ejection fraction (LVEF 65-70%), severe pulmonary hypertension, hyperlipidemia, persistent atrial fibrillation status post Watchman status post pulmonary vein isolation with records, hypertension, CKD stage 3, GERD, osteoarthritis, BPH, pancytopenia presents with chief complaints of worsening shortness of breath and leg swelling. Interval history: Decreased lower extremity swelling and abdominal distention. No chest pain, shortness of breath. Review of Systems Cardiovascular: Comments: As reported in the HPI Respiratory: Comments: As reported in the HPI Exam Narrative: General: Alert oriented x3, no acute distress Neck: Supple, JVD + Chest: Bilaterally clear to auscultation, no rales or rhonchi Cardiac: S1, S2 +, regular rate, regular rhythm, no murmurs or rubs Extremities: Bilateral lower extremity edema 2+, weeping skin, no skin rash Neurologic: Alert and oriented x3, no focal neurological deficits Objective Data Vital Signs Vital Signs: Vital Signs - 24 hr 12/19/24 22:00 12/20/24 06:00 12/20/24 08:47 Temperature 36.5 C 36.7 C Pulse Rate 84 89 95 Respiratory Rate 18 18 Blood Pressure 114/39 L 111/67 Pulse Oximetry 97 96 Intake/Output Intake/Output: Intake & Output 12/17/24 12/18/24 12/19/24 12/20/24 23:59 23:59 23:59 23:59 Intake Total 668 1820 480 Output Total 200 Balance 468 1820 480 Meds/Results Medications: Active Medications Generic Name Dose Route Start Last Admin Trade Name Freq PRN Reason Stop Dose Admin Acetaminophen 650 mg 12/18/24 14:49 12/18/24 20:54 Acetaminophen 325 Mg Tablet PO 650 mg Q6H PRN Administration Mild Pain (1-3) or Fever Allopurinol 300 mg 12/19/24 09:00 12/20/24 08:46 Allopurinol 300 Mg Tablet PO 300 mg DAILY TERRENCE Administration Apixaban 5 mg 12/18/24 21:05 12/20/24 08:46 Apixaban 5 Mg Tablet PO 5 mg Q12HR TERRENCE Administration Cyanocobalamin 1,000 mcg 12/19/24 09:00 12/20/24 08:46 Cyanocobalamin 1,000 Mcg Tablet PO 1,000 mcg DAILY TERRENCE Administration Doxazosin Mesylate 8 mg 12/18/24 21:05 12/20/24 08:47 Doxazosin Mesylate 4 Mg Tablet PO 8 mg BID TERRENCE Administration Ferrous Sulfate 325 mg 12/19/24 09:00 12/20/24 08:47 Ferrous Sulfate [address] PO 325 mg BID TERRENCE Administration Furosemide 40 mg 12/18/24 19:00 12/20/24 08:48 Furosemide Inj 40 Mg/4 Ml Vial IV PUSH 40 mg BID TERRENCE Administration Hydroxyzine HCl 10 mg 12/18/24 21:05 12/19/24 22:51 Hydroxyzine Hcl 10 Mg Tablet PO 10 mg QID PRN Administration itching Losartan Potassium 50 mg 12/19/24 09:00 12/20/24 08:47 Losartan Potassium 50 Mg Tablet PO 50 mg DAILY TERRENCE Administration Oxybutynin Chloride 5 mg 12/19/24 09:00 12/20/24 08:46 Oxybutynin Chloride 5 Mg Tablet PO 5 mg DAILY TERRENCE Administration Perflutren Lipid Microsphere 0 ml 12/18/24 14:33 Perflutren Lipid Microspheres 1.5 Ml Vial Diluted To 10 Ml Total Volume IV PUSH 12/21/24 14:33 ONCE PRN adequate visualization Protocol Propranolol HCl 120 mg 12/19/24 09:00 12/20/24 08:47 Propranolol Hcl 60 Mg Capsule Cr PO 120 mg DAILY TERRENCE Administration Tamsulosin HCl 0.4 mg 12/18/24 21:10 12/20/24 08:46 Tamsulosin Hcl 0.4 Mg Capsule PO 0.4 mg BID TERRENCE Administration Radiology Results: ITS Impressions Chest X-Ray 12/18/24 12:33 Impression: Central congestive change and mild bibasilar pulmonary edema. Cardiomegaly. Imaging My impression: TTE shows low normal LVEF and RV function. Severe TR. IVC is dilated and consistent with elevated RA pressure.
[2024-12-20] MEDS: hydrOXYzine HCL 10 MG TABLET PO ×2 (15:09→20:17)
--- NOTE | 2024-12-20 15:38 | PM.IMPN ---
Progress Note: A&P Assessment and Plan (1) Acute on chronic congestive heart failure: Code(s): I50.9 - Heart failure, unspecified Status: Acute (2) Severe tricuspid regurgitation: Code(s): I07.1 - Rheumatic tricuspid insufficiency Status: Acute (3) Chronic kidney disease, stage 3: Code(s): N18.30 - Chronic kidney disease, stage 3 unspecified Status: Acute (4) Pancytopenia: Code(s): D61.818 - Other pancytopenia Status: Acute (5) Hypertension: Code(s): I10 - Essential (primary) hypertension Status: Acute (6) Benign prostatic hyperplasia: Code(s): N40.0 - Benign prostatic hyperplasia without lower urinary tract symptoms Status: Acute Plan The patient presented to the emergency department with complaints of increasing lower extremity edema and shortness of breath Acute on chronic heart failure with preserved ejection fraction Severe TR TTE showed EF 50-55%, with severe tricuspid regurge and <50% collapse of IVC on inspiration -continue propranolol -add SGLT 2 inhibitor Monitor Is and Os and vital signs started lasix infusion per cards atrial fibrillation, CAD, severe tricuspid regurgitation status post Watchman, coronary artery disease status post 3 vessel bypass, severe tricuspid regurgitation with plans recent discussion for transcatheter tricuspid valve replacement per Dr. 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 Exam Narrative: GENERAL: Obesity, in no acute distress. Well-nourished. - EYES: EOMI. Anicteric. - HENT: Moist mucous membranes. - LUNGS: Coarse breath sound bilateral base, no wheezing, rhonchi, or rales. - CARDIOVASCULAR: Regular rate and rhythm. No murmur. No JVD. - ABDOMEN: Soft, non-tender and non-distended. No palpable masses. - EXTREMITIES: Bilateral lower extremities, edema. Peripheral pulses 2+. Non-tender. - NEUROLOGIC: No focal neurological deficits. CN II-XII grossly intact. General weakness - PSYCHIATRIC: Awake, Alert and oriented x 3. Appropriate mood and affect. - SKIN: No rashes or lesions. Warm. - LYMPH: No cervical lymphadenopathy. Objective Data Vital Signs Vital Signs: Vital Signs - 24 hr 12/19/24 22:00 12/20/24 06:00 12/20/24 08:47 Temperature 97.7 F 98.0 F Pulse Rate 84 89 95 Respiratory Rate 18 18 Blood Pressure 114/39 L 111/67 Pulse Oximetry 97 96 Intake/Output Intake/Output: Intake & Output 12/17/24 12/18/24 12/19/24 12/20/24 23:59 23:59 23:59 23:59 Intake Total 668 1820 480 Output Total 200 Balance 468 1820 480 Meds/Results Medications: Active Medications Generic Name Dose Route Start Last Admin Trade Name Freq PRN Reason Stop Dose Admin Acetaminophen 650 mg 12/18/24 14:49 12/18/24 20:54 Acetaminophen 325 Mg Tablet PO 650 mg Q6H PRN Administration Mild Pain (1-3) or Fever Allopurinol 300 mg 12/19/24 09:00 12/20/24 08:46 Allopurinol 300 Mg Tablet PO 300 mg DAILY TERRENCE Administration Apixaban 5 mg 12/18/24 21:05 12/20/24 08:46 Apixaban 5 Mg Tablet PO 5 mg Q12HR TERRENCE Administration Cyanocobalamin 1,000 mcg 12/19/24 09:00 12/20/24 08:46 Cyanocobalamin 1,000 Mcg Tablet PO 1,000 mcg DAILY TERRENCE Administration Doxazosin Mesylate 8 mg 12/18/24 21:05 12/20/24 08:47 Doxazosin Mesylate 4 Mg Tablet PO 8 mg BID TERRENCE Administration Ferrous Sulfate 325 mg 12/19/24 09:00 12/20/24 08:47 Ferrous Sulfate [address] PO 325 mg BID TERRENCE Administration Furosemide 40 mg 12/18/24 19:00 12/20/24 08:48 Furosemide Inj 40 Mg/4 Ml Vial IV PUSH 40 mg BID TERRENCE Administration Hydroxyzine HCl 10 mg 12/18/24 21:05 12/20/24 15:09 Hydroxyzine Hcl 10 Mg Tablet PO 10 mg QID PRN Administration itching Furosemide 100 mg/ Sodium 100 mls @ 6.085 mls/hr 12/20/24 14:45 Chloride IV CONT .[id number] TERRENCE 0.05 MG/KG/HR Losartan Potassium 50 mg 12/19/24 09:00 12/20/24 08:47 Losartan Potassium 50 Mg Tablet PO 50 mg DAILY TERRENCE Administration Oxybutynin Chloride 5 mg 12/19/24 09:00 12/20/24 08:46 Oxybutynin Chloride 5 Mg Tablet PO 5 mg DAILY TERRENCE Administration Perflutren Lipid Microsphere 0 ml 12/18/24 14:33 Perflutren Lipid Microspheres 1.5 Ml Vial Diluted To 10 Ml Total Volume IV PUSH 12/21/24 14:33 ONCE PRN adequate visualization Protocol Propranolol HCl 120 mg 12/19/24 09:00 12/20/24 08:47 Propranolol Hcl 60 Mg Capsule Cr PO 120 mg DAILY TERRENCE Administration Tamsulosin HCl 0.4 mg 12/18/24 21:10 12/20/24 08:46 Tamsulosin Hcl 0.4 Mg Capsule PO 0.4 mg BID TERRENCE Administration Radiology Results: ITS Impressions Chest X-Ray 12/18/24 12:33 Impression: Central congestive change and mild bibasilar pulmonary edema. Cardiomegaly. Quality VTE Prophylaxis VTE prophylaxis: pharmacologic ordered (on apixaban)
[2024-12-20 16:21] LABS: Basophils Percent Auto 0.6 % (0.2-1.2); Eosinophils Absolute Auto 0.1 K/mm3 (0-0.3); Eosinophils Percent Auto 4.8 % (0-4.4); Immature Granulocyte Absolute 0.01 K/mm3 (0.00-0.031); Immature Granulocyte Percent A 0.6 % (0-0.5); Immature Platelet Fraction Pct 1.4 % (0.9-11.2); Lymphocytes Absolute Auto 0.34 K/mm3 (0.9-3.2); Lymphocytes Percent Auto 20.5 % (18.3-44.2); Mean Corpuscular Hemoglobin 26.4 pg (26-34); Mean Platelet Volume 8.9 fl (7.4-10.4); Monocytes Absolute Auto 0.2 K/mm3 (0.1-0.6); Monocytes Percent Auto 10.2 % (2.6-8.5); Neutrophils Absolute Auto 1.1 K/mm3 (1.3-6.7); Neutrophils Percent Auto 63.3 % (45.5-73.1); Platelet Count Result 96 k/mm3 (150-375); Red Blood Count 3.41 M/mm3 (4.6-6.20); Red Cell Distribution Width 17.2 % (11.5-14.5)
[2024-12-20 16:32] LABS: Anion Gap 9 mmol/L (4-12); Blood Urea Nitrogen 33 mg/dL (9-20); Calcium 8.1 mg/dL (8.4-10.2); Carbon Dioxide 24 mmol/L (22-30); Chloride 102 mmol/L (98-107); Estimated CRCL calculation 46 ml/min; Estimated Glomerular Filt Rate 41; Glucose 92 mg/dL (65-110); Potassium 4.1 mmol/L (3.4-5.0); Sodium 135 mmol/L (137-145)
[2024-12-20 16:45] LABS: White Blood Count 1.7 K/mm3 (4.5-10.0)
[2024-12-20] MEDS: FUROSEMIDE INJ 100 MG in SODIUM CHLORIDE 0.9% IV 90 ML 6.09 MG IV CONT (17:01)
[2024-12-21] VITALS (20 sets, daily range): BP systolic 111–129; BP diastolic 35–71; PULSE 76–103; RESP 18–22; TEMP 36.5–36.8; O2SAT 94–98
[2024-12-21 05:39] LABS: Hematocrit 30.2 % (42.0-52.0); Hemoglobin 8.9 g/dL (14.0-18.0); Immature Platelet Fraction Pct 1.6 % (0.9-11.2); Mean Corpuscular HGB Conc 29.5 g/dl (32-36); Mean Corpuscular Hemoglobin 26.4 pg (26-34); Mean Corpuscular Volume 89.6 fl (80-100); Mean Platelet Volume 9.9 fl (7.4-10.4); Red Blood Count 3.37 M/mm3 (4.6-6.20); Red Cell Distribution Width 17.2 % (11.5-14.5)
[2024-12-21 05:42] LABS: Lactic Acid Reflex 0.8 mmol/L (0.7-2.0)
[2024-12-21 05:45] LABS: Platelet Count Result 98 k/mm3 (150-375)
[2024-12-21 05:46] LABS: White Blood Count 1.6 K/mm3 (4.5-10.0)
[2024-12-21 05:48] LABS: Alanine Aminotransferase 13 U/L (6-50); Albumin Level 3.4 g/dL (3.5-5.1); Alkaline Phosphatase 54 U/L (38-126); Anion Gap 9 mmol/L (4-12); Aspartate Amino Transferase 19 U/L (17-59); Bilirubin,Total 0.8 mg/dL (0.2-1.3); Blood Urea Nitrogen 32 mg/dL (9-20); Calcium 8.3 mg/dL (8.4-10.2); Carbon Dioxide 24 mmol/L (22-30); Chloride 103 mmol/L (98-107); Estimated CRCL calculation 45 ml/min; Estimated Glomerular Filt Rate 41; Glucose 88 mg/dL (65-110); Magnesium 2.2 mg/dL (1.6-2.3); Potassium 3.9 mmol/L (3.4-5.0); Sodium 136 mmol/L (137-145)
--- NOTE | 2024-12-21 06:26 | P.PNCA_ITS ---
Progress Note: A&P Assessment and Plan (1) Acute on chronic heart failure with preserved ejection fraction: Code(s): I50.33 - Acute on chronic diastolic (congestive) heart failure Status: Acute (2) Severe tricuspid regurgitation: Code(s): I07.1 - Rheumatic tricuspid insufficiency Status: Acute (3) Atherosclerotic heart disease of [place] coronary artery without angina pectoris: Code(s): I25.10 - Atherosclerotic heart disease of [place] coronary artery without angina pectoris Status: Acute (4) Presence of aortocoronary bypass graft: Onset Date: 2014 Code(s): Z95.1 - Presence of aortocoronary bypass graft Status: Acute (5) Atrial fibrillation: Code(s): I48.91 - Unspecified atrial fibrillation Status: Chronic (6) Hypertension: Code(s): I10 - Essential (primary) hypertension Status: Acute (7) Hyperlipidemia: Code(s): E78.5 - Hyperlipidemia, unspecified Status: Chronic Plan 74-year-old male patient with history of CAD status post CABG x3 ([place] to LAD, radial artery graft to OM1, SVG to RCA), hypertension, severe tricuspid regurgitation with plan for TTVR in the near future [place] [facility] [place]. Lovett, heart failure with preserved ejection fraction (LVEF 65-70%), severe pulmonary hypertension, hyperlipidemia, persistent atrial fibrillation status post Watchman status post pulmonary vein isolation with records, hypertension, CKD stage 3, GERD, osteoarthritis, BPH, pancytopenia presents with chief complaints of worsening shortness of breath and leg swelling. TTE this admission shows LVEF 50-55%, septal motion consistent with prior cardiac surgery, severe TR, dilated IVC consistent with elevated RA pressure. Acute on chronic heart failure with preserved ejection fraction Severe TR-undergoing workup for the TTVR at [facility] -continue Lasix drip at 10 mg/hr. Will re-evaluate response and then switch to IV lasix in 24-28 hours -continue propranolol and losartan at home dose -add SGLT 2 inhibitor if he tolerates -monitor weight, ins and outs, and renal function daily -check and replace electrolytes as needed to keep K greater than 4 and Mg greater than 2 -monitor H&H and keep hemoglobin more than 8 -continue other home cardiac medications Subjective Date/time seen: 12/21/24 06:26 Interval history: Reason for encounter: Acute on chronic heart failure preserved ejection fraction, severe TR Relevant history: 74-year-old male patient with history of CAD status post CABG x3 ([place] to LAD, radial artery graft to OM1, SVG to RCA), hypertension, severe tricuspid regurgitation with plan for TTVR in the near future at [facility] [place] with Dr. Lovett, heart failure with preserved ejection fraction (LVEF 65-70%), severe pulmonary hypertension, hyperlipidemia, persistent atrial fibrillation status post Watchman status post pulmonary vein isolation with records, hypertension, CKD stage 3, GERD, osteoarthritis, BPH, pancytopenia presents with chief complaints of worsening shortness of breath and leg swelling secondary to acute on chronic HFpEF due to severe TR. Interval history: Given no significant change in weight with diuresis with IV lasix, started lasix gtt yesterday. Patient had increased urine output after that and decreased lower extremity swelling, abdominal distention, and weight. No chest pain, shortness of breath. Review of Systems Cardiovascular: Comments: As reported in the HPI Respiratory: Comments: As reported in the HPI Exam Narrative: General: Alert oriented x3, no acute distress Neck: Supple, JVD + Chest: Bilaterally clear to auscultation, no rales or rhonchi Cardiac: S1, S2 +, regular rate, regular rhythm, no murmurs or rubs Extremities: Bilateral lower extremity edema 2+, weeping skin, no skin rash Neurologic: Alert and oriented x3, no focal neurological deficits Objective Data Vital Signs Vital Signs: Vital Signs - 24 hr 12/20/24 08:47 12/20/24 16:00 12/20/24 17:01 Temperature 36.6 C Pulse Rate 95 82 Respiratory Rate 20 Blood Pressure 131/58 L 131/58 L Pulse Oximetry 97 Oxygen Delivery 12/20/24 17:48 12/20/24 18:00 12/20/24 18:00 Temperature 36.9 C Pulse Rate 86 86 Respiratory Rate 20 Blood Pressure 123/67 127/67 Pulse Oximetry 93 Oxygen Delivery 12/20/24 19:53 12/20/24 19:57 12/20/24 20:00 Temperature 36.5 C Pulse Rate 93 89 Respiratory Rate 18 Blood Pressure 111/60 Pulse Oximetry 94 Oxygen Delivery Room Air 12/20/24 20:01 12/20/24 21:33 12/20/24 22:00 Temperature Pulse Rate 85 Respiratory Rate Blood Pressure 111/60 122/53 L Pulse Oximetry Oxygen Delivery 12/20/24 23:20 12/20/24 23:29 12/20/24 23:30 Temperature 36.6 C Pulse Rate 78 Respiratory Rate 18 Blood Pressure 110/52 L 110/52 L Pulse Oximetry 97 Oxygen Delivery Room Air 12/21/24 00:00 12/21/24 01:30 12/21/24 02:00 Temperature Pulse Rate 82 85 Respiratory Rate Blood Pressure 117/60 Pulse Oximetry Oxygen Delivery 12/21/24 04:00 12/21/24 04:00 12/21/24 04:00 Temperature 36.7 C Pulse Rate 85 77 Respiratory Rate 18 Blood Pressure 127/59 L Pulse Oximetry 96 Oxygen Delivery Room Air 12/21/24 05:41 12/21/24 06:00 Temperature Pulse Rate 79 Respiratory Rate Blood Pressure 117/68 Pulse Oximetry Oxygen Delivery Intake/Output Intake/Output: Intake & Output 12/18/24 12/19/24 12/20/24 12/21/24 23:59 23:59 23:59 23:59 Intake Total 668 1820 1059.1 437.2 Output Total 758 347 1549 Balance 468 1820 759.1 -812.8 Meds/Results Medications: Active Medications Generic Name Dose Route Start Last Admin Trade Name Freq PRN Reason Stop Dose Admin Acetaminophen 650 mg 12/18/24 14:49 12/18/24 20:54 Acetaminophen 325 Mg Tablet PO 650 mg Q6H PRN Administration Mild Pain (1-3) or Fever Allopurinol 300 mg 12/19/24 09:00 12/20/24 08:46 Allopurinol 300 Mg Tablet PO 300 mg DAILY TERRENCE Administration Apixaban 5 mg 12/18/24 21:05 12/20/24 20:17 Apixaban 5 Mg Tablet PO 5 mg Q12HR TERRENCE Administration Cyanocobalamin 1,000 mcg 12/19/24 09:00 12/20/24 08:46 Cyanocobalamin 1,000 Mcg Tablet PO 1,000 mcg DAILY TERRENCE Administration Doxazosin Mesylate 8 mg 12/18/24 21:05 12/20/24 16:17 Doxazosin Mesylate 4 Mg Tablet PO 8 mg BID TERRENCE Administration Ferrous Sulfate 325 mg 12/19/24 09:00 12/20/24 16:17 Ferrous Sulfate [address] PO 325 mg BID TERRENCE Administration Furosemide 40 mg 12/18/24 19:00 12/20/24 08:48 Furosemide Inj 40 Mg/4 Ml Vial IV PUSH 40 mg BID TERRENCE Administration Hydroxyzine HCl 10 mg 12/18/24 21:05 12/20/24 20:17 Hydroxyzine Hcl 10 Mg Tablet PO 10 mg QID PRN Administration itching Furosemide 100 mg/ Sodium 100 mls @ 6 mls/hr 12/20/24 14:45 12/21/24 05:41 Chloride IV CONT 0.05 mg/kg/hr .[id number] TERRENCE 6 mls/hr Infusion Losartan Potassium 50 mg 12/19/24 09:00 12/20/24 08:47 Losartan Potassium 50 Mg Tablet PO 50 mg DAILY TERRENCE Administration Oxybutynin Chloride 5 mg 12/19/24 09:00 12/20/24 08:46 Oxybutynin Chloride 5 Mg Tablet PO 5 mg DAILY TERRENCE Administration Perflutren Lipid Microsphere 0 ml 12/18/24 14:33 Perflutren Lipid Microspheres 1.5 Ml Vial Diluted To 10 Ml Total Volume IV PUSH 12/21/24 14:33 ONCE PRN adequate visualization Protocol Propranolol HCl 120 mg 12/19/24 09:00 12/20/24 08:47 Propranolol Hcl 60 Mg Capsule Cr PO 120 mg DAILY TERRENCE Administration Tamsulosin HCl 0.4 mg 12/18/24 21:10 12/20/24 16:17 Tamsulosin Hcl 0.4 Mg Capsule PO 0.4 mg BID TERRENCE Administration Radiology Results: ITS Impressions Chest X-Ray 12/18/24 12:33 Impression: Central congestive change and mild bibasilar pulmonary edema. Cardiomegaly. Labs Labs: Laboratory Results - last 24 hr 12/20/24 12/21/24 16:10 04:03 WBC 1.7 L* 1.6 L* RBC 3.41 L 3.37 L Hgb 9.0 L 8.9 L Hct 30.0 L 30.2 L MCV 88.0 89.6 MCH 26.4 26.4 MCHC 30.0 L 29.5 L RDW 17.2 H 17.2 H Plt Count 96 L 98 L MPV 8.9 9.9 Immature Gran % (Auto) 0.6 H Not Reportable Neut % (Auto) 63.3 Not Reportable Lymph % (Auto) 20.5 Not Reportable [place] % (Auto) 10.2 H Not Reportable Eos % (Auto) 4.8 H Not Reportable Baso % (Auto) 0.6 Not Reportable Lymph # (Auto) 0.34 L Not Reportable [place] # (Auto) 0.2 Not Reportable Eos # (Auto) 0.1 Not Reportable Baso # (Auto) 0.0 Not Reportable Abs Immat Gran (auto) 0.01 Not Reportable Absolute Neuts (auto) 1.1 L Not Reportable Absolute Nucleated RBC 0.000 Not Reportable Nucleated RBC % 0.0 Not Reportable % Immature Plt Fraction 1.4 1.6 Sodium 135 L 136 L Potassium 4.1 3.9 Chloride 102 103 Carbon Dioxide 24 24 Anion Gap 9 9 BUN 33 H 32 H Creatinine 1.66 H 1.65 H Estim Creat Clear Calc 46 45 Estimated GFR 41 L 41 L Glucose 92 88 Lactic Acid 0.8 Calcium 8.1 L 8.3 L Magnesium 2.2 Total Bilirubin 0.8 AST 19 ALT 13 Alkaline Phosphatase 54 Total Protein 7.0 Albumin 3.4 L
[2024-12-21 06:33] LABS: Band Neutrophils Percent 0 % (0-6); Eosinophils Absolute Manual 0.03 K/mm3 (0.02-0.50); Eosinophils Percent Manual 2 % (0-4); Lymphocytes Absolute Manual 0.38 K/mm3 (1.1-4.5); Lymphocytes Percent Manual 24 % (18-44); Monocytes Absolute Manual 0.06 K/mm3 (0.1-0.90); Monocytes Percent Manual 4 % (3-9); Neutrophils Absolute Manual 1.12 K/mm3 (1.3-6.7); Neutrophils Percent Manual 70 % (46-73); Total Cells Counted 100
[2024-12-21 06:34] LABS: Anisocytosis 1+; Burr Cells 1+; Hypochromasia 1+; Ovalocytes 1+; Platelet Estimate Decreased (Adequate); Schistocytes None Seen; Smudge Cells FEW
[2024-12-21] MEDS: FUROSEMIDE INJ 100 MG in SODIUM CHLORIDE 0.9% IV 90 ML 6 MG IV CONT ×2 (07:32→23:44)
[2024-12-21] MEDS: allopurinoL 300 MG TABLET PO (08:22)
[2024-12-21] MEDS: TAMSULOSIN HCL 0.4 MG CAPSULE PO ×2 (08:23→16:07)
[2024-12-21] MEDS: APIXABAN 5 MG TABLET PO ×2 (08:23→20:12)
[2024-12-21] MEDS: PROPRANOLOL HCL 60 MG CAPSULE CR 120 MG PO (08:23)
[2024-12-21] MEDS: DOXAZOSIN MESYLATE 4 MG TABLET 8 MG PO ×2 (08:23→16:07)
[2024-12-21] MEDS: FERROUS SULFATE 325 MG TABLET DR PO ×2 (08:23→16:06)
[2024-12-21] MEDS: oxyBUTYnin CHLORIDE 5 MG TABLET PO (08:24)
[2024-12-21] MEDS: CYANOCOBALAMIN 1,000 MCG TABLET 1000 MCG PO (08:24)
[2024-12-21] MEDS: LOSARTAN POTASSIUM 50 MG TABLET PO (08:24)
[2024-12-21] MEDS: hydrOXYzine HCL 10 MG TABLET PO ×3 (08:32→18:27)
[2024-12-21] MEDS: ACETAMINOPHEN 325 MG TABLET 650 MG PO ×2 (12:28→18:27)
--- NOTE | 2024-12-21 15:06 | PM.IMPN ---
Progress Note: A&P Assessment and Plan (1) Acute on chronic congestive heart failure: Code(s): I50.9 - Heart failure, unspecified Status: Acute (2) Severe tricuspid regurgitation: Code(s): I07.1 - Rheumatic tricuspid insufficiency Status: Acute (3) Chronic kidney disease, stage 3: Code(s): N18.30 - Chronic kidney disease, stage 3 unspecified Status: Acute (4) Pancytopenia: Code(s): D61.818 - Other pancytopenia Status: Acute (5) Hypertension: Code(s): I10 - Essential (primary) hypertension Status: Acute (6) Benign prostatic hyperplasia: Code(s): N40.0 - Benign prostatic hyperplasia without lower urinary tract symptoms Status: Acute Plan The patient presented to the emergency department with complaints of increasing lower extremity edema and shortness of breath Acute on chronic heart failure with preserved ejection fraction Severe TR TTE showed EF 50-55%, with severe tricuspid regurge and <50% collapse of IVC on inspiration -continue propranolol Monitor Is and Os and vital signs On Lasix infusion per cards cardiology following atrial fibrillation, CAD, severe tricuspid regurgitation status post Watchman, coronary artery disease status post 3 vessel bypass, severe tricuspid regurgitation with plans recent discussion for transcatheter tricuspid valve replacement per Dr. 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 Exam Narrative: GENERAL: Obesity, in no acute distress. Well-nourished. - EYES: EOMI. Anicteric. - HENT: Moist mucous membranes. - LUNGS: Coarse breath sound bilateral base, no wheezing, rhonchi, or rales. - CARDIOVASCULAR: Regular rate and rhythm. No murmur. No JVD. - ABDOMEN: Soft, non-tender and non-distended. No palpable masses. - EXTREMITIES: Bilateral lower extremities, edema. Peripheral pulses 2+. Non-tender. - NEUROLOGIC: No focal neurological deficits. CN II-XII grossly intact. General weakness - PSYCHIATRIC: Awake, Alert and oriented x 3. Appropriate mood and affect. - SKIN: No rashes or lesions. Warm. - LYMPH: No cervical lymphadenopathy. Objective Data Vital Signs Vital Signs: Vital Signs - 24 hr 12/20/24 16:00 12/20/24 17:01 12/20/24 17:48 Temperature 97.9 F Pulse Rate 82 86 Respiratory Rate 20 Blood Pressure 131/58 L 131/58 L Pulse Oximetry 97 Oxygen Delivery 12/20/24 18:00 12/20/24 18:00 12/20/24 19:53 Temperature 98.4 F Pulse Rate 86 Respiratory Rate 20 Blood Pressure 123/67 127/67 Pulse Oximetry 93 Oxygen Delivery Room Air 12/20/24 19:57 12/20/24 20:00 12/20/24 20:01 Temperature 97.7 F Pulse Rate 93 89 Respiratory Rate 18 Blood Pressure 111/60 111/60 Pulse Oximetry 94 Oxygen Delivery 12/20/24 21:33 12/20/24 22:00 12/20/24 23:20 Temperature 97.8 F Pulse Rate 85 78 Respiratory Rate 18 Blood Pressure 122/53 L 110/52 L Pulse Oximetry 97 Oxygen Delivery 12/20/24 23:29 12/20/24 23:30 12/21/24 00:00 Temperature Pulse Rate 82 Respiratory Rate Blood Pressure 110/52 L Pulse Oximetry Oxygen Delivery Room Air 12/21/24 01:30 12/21/24 02:00 12/21/24 04:00 Temperature Pulse Rate 85 85 Respiratory Rate Blood Pressure 117/60 Pulse Oximetry Oxygen Delivery 12/21/24 04:00 12/21/24 04:00 12/21/24 05:41 Temperature 98.0 F Pulse Rate 77 Respiratory Rate 18 Blood Pressure 127/59 L 117/68 Pulse Oximetry 96 Oxygen Delivery Room Air 12/21/24 06:00 12/21/24 06:00 12/21/24 07:41 Temperature 97.8 F 97.8 F Pulse Rate 79 79 95 Respiratory Rate 18 20 Blood Pressure 118/62 129/65 Pulse Oximetry 94 96 Oxygen Delivery 12/21/24 08:00 12/21/24 08:00 12/21/24 08:00 Temperature Pulse Rate 103 H Respiratory Rate Blood Pressure 129/65 Pulse Oximetry Oxygen Delivery Room Air 12/21/24 08:23 12/21/24 08:43 12/21/24 10:00 Temperature Pulse Rate 100 82 Respiratory Rate Blood Pressure Pulse Oximetry Oxygen Delivery Room Air 12/21/24 10:00 12/21/24 10:00 12/21/24 11:25 Temperature 98.2 F 98.2 F Pulse Rate 78 84 Respiratory Rate 22 H 20 Blood Pressure 115/54 L 115/54 L 127/71 Pulse Oximetry 98 98 Oxygen Delivery 12/21/24 12:00 12/21/24 12:00 12/21/24 12:00 Temperature Pulse Rate 102 H Respiratory Rate Blood Pressure 127/71 Pulse Oximetry Oxygen Delivery Room Air 12/21/24 14:00 12/21/24 14:00 Temperature Pulse Rate 88 76 Respiratory Rate 20 Blood Pressure 115/64 Pulse Oximetry 98 Oxygen Delivery Intake/Output Intake/Output: Intake & Output 12/18/24 12/19/24 12/20/24 12/21/24 23:59 23:59 23:59 23:59 Intake Total 668 1820 1059.1 955.1 Output Total 570 441 4407 Balance 468 1820 759.1 -1044.9 Meds/Results Medications: Active Medications Generic Name Dose Route Start Last Admin Trade Name Freq PRN Reason Stop Dose Admin Acetaminophen 650 mg 12/18/24 14:49 12/21/24 12:28 Acetaminophen 325 Mg Tablet PO 650 mg Q6H PRN Administration Mild Pain (1-3) or Fever Allopurinol 300 mg 12/19/24 09:00 12/21/24 08:22 Allopurinol 300 Mg Tablet PO 300 mg DAILY TERRENCE Administration Apixaban 5 mg 12/18/24 21:05 12/21/24 08:23 Apixaban 5 Mg Tablet PO 5 mg Q12HR TERRENCE Administration Cyanocobalamin 1,000 mcg 12/19/24 09:00 12/21/24 08:24 Cyanocobalamin 1,000 Mcg Tablet PO 1,000 mcg DAILY TERRENCE Administration Doxazosin Mesylate 8 mg 12/18/24 21:05 12/21/24 08:23 Doxazosin Mesylate 4 Mg Tablet PO 8 mg BID TERRENCE Administration Ferrous Sulfate 325 mg 12/19/24 09:00 12/21/24 08:23 Ferrous Sulfate [address] PO 325 mg BID TERRENCE Administration Furosemide 40 mg 12/18/24 19:00 12/20/24 08:48 Furosemide Inj 40 Mg/4 Ml Vial IV PUSH 40 mg BID TERRENCE Administration Hydroxyzine HCl 10 mg 12/18/24 21:05 12/21/24 12:28 Hydroxyzine Hcl 10 Mg Tablet PO 10 mg QID PRN Administration itching Furosemide 100 mg/ Sodium 100 mls @ 6 mls/hr 12/20/24 14:45 12/21/24 12:00 Chloride IV CONT 0.05 mg/kg/hr .[id number] TERRENCE 6 mls/hr Infusion Losartan Potassium 50 mg 12/19/24 09:00 12/21/24 08:24 Losartan Potassium 50 Mg Tablet PO 50 mg DAILY TERRENCE Administration Oxybutynin Chloride 5 mg 12/19/24 09:00 12/21/24 08:24 Oxybutynin Chloride 5 Mg Tablet PO 5 mg DAILY TERRENCE Administration Propranolol HCl 120 mg 12/19/24 09:00 12/21/24 08:23 Propranolol Hcl 60 Mg Capsule Cr PO 120 mg DAILY TERRENCE Administration Tamsulosin HCl 0.4 mg 12/18/24 21:10 12/21/24 08:23 Tamsulosin Hcl 0.4 Mg Capsule PO 0.4 mg BID TERRENCE Administration Radiology Results: ITS Impressions Chest X-Ray 12/18/24 12:33 Impression: Central congestive change and mild bibasilar pulmonary edema. Cardiomegaly. Labs Labs: Laboratory Results - last 24 hr 12/20/24 12/21/24 16:10 04:03 WBC 1.7 L* 1.6 L* RBC 3.41 L 3.37 L Hgb 9.0 L 8.9 L Hct 30.0 L 30.2 L MCV 88.0 89.6 MCH 26.4 26.4 MCHC 30.0 L 29.5 L RDW 17.2 H 17.2 H Plt Count 96 L 98 L MPV 8.9 9.9 Immature Gran % (Auto) 0.6 H Not Reportable Neut % (Auto) 63.3 Not Reportable Lymph % (Auto) 20.[address] [place] % (Auto) 10.2 H Not Reportable Eos % (Auto) 4.8 H Not Reportable Baso % (Auto) 0.6 Not Reportable Lymph # (Auto) 0.[address] [place] # (Auto) 0.2 Not Reportable Eos # (Auto) 0.1 Not Reportable Baso # (Auto) 0.0 Not Reportable Abs Immat Gran (auto) 0.01 Not Reportable Absolute Neuts (auto) 1.1 L Not Reportable Absolute Nucleated RBC 0.000 Not Reportable Total Counted 100 Neutrophils % (Manual) 70 Band Neutrophils % 0 Lymphocytes % (Manual) 24 Monocytes % (Manual) 4 Eosinophils % (Manual) 2 Nucleated RBC % 0.0 Not Reportable Abs Neuts (Manual) 1.12 L Abs Lymphs (Manual) 0.38 L Abs Monocytes (Manual) 0.06 L Absolute Eos (Manual) 0.03 Smudge Cells Few Platelet Estimate Decreased % Immature Plt Fraction 1.4 1.6 Hypochromasia 1+ Anisocytosis 1+ Ovalocytes 1+ [place] Cells 1+ Schistocytes None seen Sodium 135 L 136 L Potassium 4.1 3.9 Chloride 102 103 Carbon Dioxide 24 24 Anion Gap 9 9 BUN 33 H 32 H Creatinine 1.66 H 1.65 H Estim Creat Clear Calc 46 45 Estimated GFR 41 L 41 L Glucose 92 88 Lactic Acid 0.8 Calcium 8.1 L 8.3 L Magnesium 2.2 Total Bilirubin 0.8 AST 19 ALT 13 Alkaline Phosphatase 54 Total Protein 7.0 Albumin 3.4 L Quality VTE Prophylaxis VTE prophylaxis: pharmacologic ordered (on apixaban)
[2024-12-22] VITALS (17 sets, daily range): BP systolic 101–138; BP diastolic 50–63; PULSE 73–99; RESP 18–20; TEMP 36.6–36.9; O2SAT 93–100
[2024-12-22] MEDS: hydrOXYzine HCL 10 MG TABLET PO (00:20)
[2024-12-22 04:25] LABS: Basophils Percent Auto 1.3 % (0.2-1.2); Eosinophils Absolute Auto 0.1 K/mm3 (0-0.3); Eosinophils Percent Auto 4.5 % (0-4.4); Hematocrit 29.3 % (42.0-52.0); Hemoglobin 8.8 g/dL (14.0-18.0); Immature Granulocyte Absolute 0.01 K/mm3 (0.00-0.031); Immature Granulocyte Percent A 0.6 % (0-0.5); Immature Platelet Fraction Pct 1.1 % (0.9-11.2); Lymphocytes Absolute Auto 0.39 K/mm3 (0.9-3.2); Lymphocytes Percent Auto 25.2 % (18.3-44.2); Mean Corpuscular Hemoglobin 26.8 pg (26-34); Mean Corpuscular Volume 89.3 fl (80-100); Mean Platelet Volume 9.7 fl (7.4-10.4); Monocytes Absolute Auto 0.2 K/mm3 (0.1-0.6); Monocytes Percent Auto 9.7 % (2.6-8.5); Neutrophils Absolute Auto 0.9 K/mm3 (1.3-6.7); Neutrophils Percent Auto 58.7 % (45.5-73.1); Platelet Count Result 97 k/mm3 (150-375); Red Blood Count 3.28 M/mm3 (4.6-6.20); Red Cell Distribution Width 17.2 % (11.5-14.5)
[2024-12-22 04:31] LABS: Alanine Aminotransferase 13 U/L (6-50); Albumin Level 3.5 g/dL (3.5-5.1); Alkaline Phosphatase 53 U/L (38-126); Anion Gap 11 mmol/L (4-12); Aspartate Amino Transferase 21 U/L (17-59); Bilirubin,Total 0.7 mg/dL (0.2-1.3); Blood Urea Nitrogen 30 mg/dL (9-20); Calcium 8.4 mg/dL (8.4-10.2); Carbon Dioxide 24 mmol/L (22-30); Chloride 102 mmol/L (98-107); Estimated CRCL calculation 48 ml/min; Estimated Glomerular Filt Rate 44; Glucose 90 mg/dL (65-110); Potassium 3.8 mmol/L (3.4-5.0); Sodium 137 mmol/L (137-145)
[2024-12-22 05:01] LABS: Platelet Estimate Decreased (Adequate); White Blood Count 1.6 K/mm3 (4.5-10.0)
[2024-12-22 05:02] LABS: Anisocytosis 1+; Ovalocytes 1+; Schistocytes Rare
[2024-12-22] MEDS: LOSARTAN POTASSIUM 50 MG TABLET PO (09:09)
[2024-12-22] MEDS: TAMSULOSIN HCL 0.4 MG CAPSULE PO ×2 (09:09→16:35)
[2024-12-22] MEDS: allopurinoL 300 MG TABLET PO (09:09)
[2024-12-22] MEDS: oxyBUTYnin CHLORIDE 5 MG TABLET PO (09:09)
[2024-12-22] MEDS: FERROUS SULFATE 325 MG TABLET DR PO ×2 (09:10→16:35)
[2024-12-22] MEDS: LORATADINE 10 MG TABLET PO (09:10)
[2024-12-22] MEDS: PROPRANOLOL HCL 60 MG CAPSULE CR 120 MG PO (09:10)
[2024-12-22] MEDS: CYANOCOBALAMIN 1,000 MCG TABLET 1000 MCG PO (09:10)
[2024-12-22] MEDS: APIXABAN 5 MG TABLET PO ×2 (09:10→20:08)
[2024-12-22] MEDS: DOXAZOSIN MESYLATE 4 MG TABLET 8 MG PO ×2 (09:10→16:35)
--- NOTE | 2024-12-22 10:25 | P.PNCA_ITS ---
Progress Note: A&P Assessment and Plan (1) Acute on chronic heart failure with preserved ejection fraction: Code(s): I50.33 - Acute on chronic diastolic (congestive) heart failure Status: Acute (2) Severe tricuspid regurgitation: Code(s): I07.1 - Rheumatic tricuspid insufficiency Status: Acute (3) Atherosclerotic heart disease of [place] coronary artery without angina pectoris: Code(s): I25.10 - Atherosclerotic heart disease of [place] coronary artery without angina pectoris Status: Acute (4) Presence of aortocoronary bypass graft: Onset Date: 2014 Code(s): Z95.1 - Presence of aortocoronary bypass graft Status: Acute (5) Atrial fibrillation: Code(s): I48.91 - Unspecified atrial fibrillation Status: Chronic (6) Hypertension: Code(s): I10 - Essential (primary) hypertension Status: Acute (7) Hyperlipidemia: Code(s): E78.5 - Hyperlipidemia, unspecified Status: Chronic Plan Acute on chronic heart failure with preserved ejection fraction still decompensated Severe TR-undergoing workup for the TTV[facility] at [facility] -continue Lasix drip at 6 mg/hr. Will re-evaluate response -continue propranolol and losartan at home dose -monitor weight, ins and outs, and renal function daily -check and replace electrolytes as needed to keep K greater than 4 and Mg greater than 2 -monitor H&H and keep hemoglobin more than 8 -continue other home cardiac medications Subjective Date/time seen: 12/22/24 10:25 Interval history: no acute events Review of Systems Review of Systems: All systems reviewed & are unremarkable except as noted in HPI and below Exam Narrative: GENERAL: Obesity, in no acute distress. Well-nourished. - EYES: EOMI. Anicteric. - HENT: Moist mucous membranes. - LUNGS: Coarse breath sound bilateral base, no wheezing, rhonchi, or rales. - CARDIOVASCULAR: Regular rate and rhyth m. No murmur. No JVD. - ABDOMEN: Soft, non-tender and non-dist ended. No palpable masses. - EXTREMITIES: Bilateral lower extremit ies, edema. Peripheral pulses 2+. Non- tender. - NEUROLOGIC: No focal neurological defi cits. CN II-XII grossly intact. General weakness - PSYCHIATRIC: Awake, Alert and oriented x 3. Appropriate mood and affect. - SKIN: No rashes or lesions. Warm. - LYMPH: No cervical lymphadenopathy. Objective Data Vital Signs Vital Signs: Vital Signs - 24 hr 12/21/24 11:25 12/21/24 12:00 12/21/24 12:00 Temperature 36.8 C Pulse Rate 84 102 H Respiratory Rate 20 Blood Pressure 127/71 Pulse Oximetry 98 Oxygen Delivery Room Air 12/21/24 12:00 12/21/24 14:00 12/21/24 14:00 Temperature Pulse Rate 88 76 Respiratory Rate 20 Blood Pressure 127/71 115/64 Pulse Oximetry 98 Oxygen Delivery 12/21/24 14:00 12/21/24 14:50 12/21/24 15:57 Temperature 36.6 C Pulse Rate 80 Respiratory Rate 18 Blood Pressure 115/64 115/55 L Pulse Oximetry 97 Oxygen Delivery Room Air 12/21/24 16:00 12/21/24 16:00 12/21/24 16:00 Temperature Pulse Rate 78 Respiratory Rate Blood Pressure 115/55 L Pulse Oximetry Oxygen Delivery Room Air 12/21/24 18:00 12/21/24 18:00 12/21/24 18:00 Temperature 36.6 C Pulse Rate 88 80 Respiratory Rate 22 H Blood Pressure 111/57 L 111/57 L Pulse Oximetry 95 Oxygen Delivery 12/21/24 19:20 12/21/24 20:00 12/21/24 20:00 Temperature 36.5 C Pulse Rate 78 Respiratory Rate 18 Blood Pressure 122/54 L 122/54 L Pulse Oximetry 96 Oxygen Delivery Room Air 12/21/24 20:00 12/21/24 21:50 12/21/24 22:00 Temperature Pulse Rate 80 81 82 Respiratory Rate Blood Pressure 115/35 L Pulse Oximetry Oxygen Delivery 12/21/24 22:00 12/21/24 23:59 12/22/24 00:00 Temperature 36.9 C Pulse Rate 78 Respiratory Rate 20 Blood Pressure 115/35 L 114/58 L Pulse Oximetry 93 Oxygen Delivery Room Air 12/22/24 00:00 12/22/24 00:20 12/22/24 02:00 Temperature Pulse Rate 81 85 Respiratory Rate Blood Pressure 114/58 L Pulse Oximetry Oxygen Delivery 12/22/24 04:00 12/22/24 04:00 12/22/24 04:00 Temperature 36.6 C Pulse Rate 81 84 Respiratory Rate 18 Blood Pressure 101/54 L Pulse Oximetry 94 Oxygen Delivery Room Air 12/22/24 04:00 12/22/24 05:47 12/22/24 07:28 Temperature 36.8 C Pulse Rate 77 79 Respiratory Rate 20 Blood Pressure 101/54 L 109/62 Pulse Oximetry 98 Oxygen Delivery 12/22/24 09:10 Temperature Pulse Rate 83 Respiratory Rate Blood Pressure Pulse Oximetry Oxygen Delivery Intake/Output Intake/Output: Intake & Output 12/19/24 12/20/24 12/21/24 12/22/24 23:59 23:59 23:59 23:59 Intake Total 1820 1059.1 2365.5 715.6 Output Total 300 2300 1975 Balance 1820 759.1 65.5 -1259.4 Meds/Results Medications: Active Medications Generic Name Dose Route Start Last Admin Trade Name Freq PRN Reason Stop Dose Admin Acetaminophen 650 mg 12/18/24 14:49 12/21/24 18:27 Acetaminophen 325 Mg Tablet PO 650 mg Q6H PRN Administration Mild Pain (1-3) or Fever Allopurinol 300 mg 12/19/24 09:00 12/22/24 09:09 Allopurinol 300 Mg Tablet PO 300 mg DAILY TERRENCE Administration Apixaban 5 mg 12/18/24 21:05 12/22/24 09:10 Apixaban 5 Mg Tablet PO 5 mg Q12HR TERRENCE Administration Cyanocobalamin 1,000 mcg 12/19/24 09:00 12/22/24 09:10 Cyanocobalamin 1,000 Mcg Tablet PO 1,000 mcg DAILY TERRENCE Administration Doxazosin Mesylate 8 mg 12/18/24 21:05 12/22/24 09:10 Doxazosin Mesylate 4 Mg Tablet PO 8 mg BID TERRENCE Administration Ferrous Sulfate 325 mg 12/19/24 09:00 12/22/24 09:10 Ferrous Sulfate [address] PO 325 mg BID TERRENCE Administration Furosemide 40 mg 12/18/24 19:00 12/20/24 08:48 Furosemide Inj 40 Mg/4 Ml Vial IV PUSH 40 mg BID TERRENCE Administration Hydroxyzine HCl 10 mg 12/18/24 21:05 12/22/24 00:20 Hydroxyzine Hcl 10 Mg Tablet PO 10 mg QID PRN Administration itching Furosemide 100 mg/ Sodium 100 mls @ 6 mls/hr 12/20/24 14:45 12/22/24 04:00 Chloride IV CONT 0.05 mg/kg/hr .[id number] TERRENCE 6 mls/hr Infusion Loratadine 10 mg 12/22/24 07:57 12/22/24 09:10 Loratadine 10 Mg Tablet PO 10 mg QAM PRN Administration itch Losartan Potassium 50 mg 12/19/24 09:00 12/22/24 09:09 Losartan Potassium 50 Mg Tablet PO 50 mg DAILY TERRENCE Administration Oxybutynin Chloride 5 mg 12/19/24 09:00 12/22/24 09:09 Oxybutynin Chloride 5 Mg Tablet PO 5 mg DAILY TERRENCE Administration Propranolol HCl 120 mg 12/19/24 09:00 12/22/24 09:10 Propranolol Hcl 60 Mg Capsule Cr PO 120 mg DAILY TERRENCE Administration Tamsulosin HCl 0.4 mg 12/18/24 21:10 12/22/24 09:09 Tamsulosin Hcl 0.4 Mg Capsule PO 0.4 mg BID TERRENCE Administration Radiology Results: ITS Impressions Chest X-Ray 12/18/24 12:33 Impression: Central congestive change and mild bibasilar pulmonary edema. Cardiomegaly. Labs Labs: Laboratory Results - last 24 hr 12/22/24 04:12 WBC 1.6 L* RBC 3.28 L Hgb 8.8 L Hct 29.3 L MCV 89.3 MCH 26.8 MCHC 30.0 L RDW 17.2 H Plt Count 97 L MPV 9.7 Immature Gran % (Auto) 0.6 H Neut % (Auto) 58.7 Lymph % (Auto) 25.2 [place] % (Auto) 9.7 H Eos % (Auto) 4.5 H Baso % (Auto) 1.3 H Lymph # (Auto) 0.39 L [place] # (Auto) 0.2 Eos # (Auto) 0.1 Baso # (Auto) 0.0 Abs Immat Gran (auto) 0.01 Absolute Neuts (auto) 0.9 L Absolute Nucleated RBC 0.000 Band Neutrophils % Not Reportable Nucleated RBC % 0.0 Platelet Estimate Decreased % Immature Plt Fraction 1.1 Anisocytosis 1+ Ovalocytes 1+ Schistocytes Rare Sodium 137 Potassium 3.8 Chloride 102 Carbon Dioxide 24 Anion Gap 11 BUN 30 H Creatinine 1.56 H Estim Creat Clear Calc 48 Estimated GFR 44 L Glucose 90 Calcium 8.4 Magnesium 2.0 Total Bilirubin 0.7 AST 21 ALT 13 Alkaline Phosphatase 53 Total Protein 7.0 Albumin 3.5
--- NOTE | 2024-12-22 13:18 | P.PNIM_ITS ---
Progress Note: A&P Assessment and Plan (1) Acute on chronic congestive heart failure: Code(s): I50.9 - Heart failure, unspecified Status: Acute (2) Severe tricuspid regurgitation: Code(s): I07.1 - Rheumatic tricuspid insufficiency Status: Acute (3) Chronic kidney disease, stage 3: Code(s): N18.30 - Chronic kidney disease, stage 3 unspecified Status: Acute (4) Pancytopenia: Code(s): D61.818 - Other pancytopenia Status: Acute (5) Hypertension: Code(s): I10 - Essential (primary) hypertension Status: Acute (6) Benign prostatic hyperplasia: Code(s): N40.0 - Benign prostatic hyperplasia without lower urinary tract symptoms Status: Acute Plan Acute on chronic heart failure with preserved ejection fraction Severe TR TTE showed EF 50-55%, with severe tricuspid regurge and <50% collapse of IVC on inspiration -continue propranolol Monitor Is and Os and vital signs On Lasix infusion per cards Leg edema improving cardiology following atrial fibrillation, CAD, status post Watchman, coronary artery disease status post 3 vessel bypass, severe tricuspid regurgitation with plans recent discussion for transcatheter tricuspid valve replacement per Dr. 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 Exam Narrative: GENERAL: Obesity, in no acute distress. Well-nourished. - EYES: EOMI. Anicteric. - HENT: Moist mucous membranes. - LUNGS: Coarse breath sound bilateral base, no wheezing, rhonchi, or rales. - CARDIOVASCULAR: Regular rate and rhyth m. No murmur. No JVD. - ABDOMEN: Soft, non-tender and non-dist ended. No palpable masses. - EXTREMITIES: Bilateral lower extremit ies, edema. Peripheral pulses 2+. Non- tender. - NEUROLOGIC: No focal neurological defi cits. CN II-XII grossly intact. General weakness - PSYCHIATRIC: Awake, Alert and oriented x 3. Appropriate mood and affect. - SKIN: No rashes or lesions. Warm. - LYMPH: No cervical lymphadenopathy. Objective Data Vital Signs Vital Signs: Vital Signs - 24 hr 12/21/24 14:00 12/21/24 14:00 12/21/24 14:00 Temperature Pulse Rate 88 76 Respiratory Rate 20 Blood Pressure 115/64 115/64 Pulse Oximetry 98 Oxygen Delivery 12/21/24 14:50 12/21/24 15:57 12/21/24 16:00 Temperature 97.9 F Pulse Rate 80 Respiratory Rate 18 Blood Pressure 115/55 L Pulse Oximetry 97 Oxygen Delivery Room Air Room Air 12/21/24 16:00 12/21/24 16:00 12/21/24 18:00 Temperature 97.9 F Pulse Rate 78 88 Respiratory Rate 22 H Blood Pressure 115/55 L 111/57 L Pulse Oximetry 95 Oxygen Delivery 12/21/24 18:00 12/21/24 18:00 12/21/24 19:20 Temperature 97.7 F Pulse Rate 80 78 Respiratory Rate 18 Blood Pressure 111/57 L 122/54 L Pulse Oximetry 96 Oxygen Delivery 12/21/24 20:00 12/21/24 20:00 12/21/24 20:00 Temperature Pulse Rate 80 Respiratory Rate Blood Pressure 122/54 L Pulse Oximetry Oxygen Delivery Room Air 12/21/24 21:50 12/21/24 22:00 12/21/24 22:00 Temperature Pulse Rate 81 82 Respiratory Rate Blood Pressure 115/35 L 115/35 L Pulse Oximetry Oxygen Delivery 12/21/24 23:59 12/22/24 00:00 12/22/24 00:00 Temperature 98.4 F Pulse Rate 78 81 Respiratory Rate 20 Blood Pressure 114/58 L Pulse Oximetry 93 Oxygen Delivery Room Air 12/22/24 00:20 12/22/24 02:00 12/22/24 04:00 Temperature Pulse Rate 85 Respiratory Rate Blood Pressure 114/58 L Pulse Oximetry Oxygen Delivery Room Air 12/22/24 04:00 12/22/24 04:00 12/22/24 04:00 Temperature 97.8 F Pulse Rate 81 84 Respiratory Rate 18 Blood Pressure 101/54 L 101/54 L Pulse Oximetry 94 Oxygen Delivery 12/22/24 05:47 12/22/24 07:28 12/22/24 08:00 Temperature 98.2 F Pulse Rate 77 79 Respiratory Rate 20 Blood Pressure 109/62 Pulse Oximetry 98 98 Oxygen Delivery Room Air 12/22/24 08:00 12/22/24 09:10 12/22/24 10:00 Temperature Pulse Rate 98 83 73 Respiratory Rate Blood Pressure Pulse Oximetry Oxygen Delivery 12/22/24 11:34 12/22/24 12:00 Temperature 98.5 F Pulse Rate 99 Respiratory Rate 18 Blood Pressure 138/63 Pulse Oximetry 98 98 Oxygen Delivery Room Air Intake/Output Intake/Output: Intake & Output 12/19/24 12/20/24 12/21/24 12/22/24 23:59 23:59 23:59 23:59 Intake Total 1820 1059.1 2365.5 965.6 Output Total 300 2300 2350 Balance 1820 759.1 65.5 -1384.4 Meds/Results Medications: Active Medications Generic Name Dose Route Start Last Admin Trade Name Freq PRN Reason Stop Dose Admin Acetaminophen 650 mg 12/18/24 14:49 12/21/24 18:27 Acetaminophen 325 Mg Tablet PO 650 mg Q6H PRN Administration Mild Pain (1-3) or Fever Allopurinol 300 mg 12/19/24 09:00 12/22/24 09:09 Allopurinol 300 Mg Tablet PO 300 mg DAILY TERRENCE Administration Apixaban 5 mg 12/18/24 21:05 12/22/24 09:10 Apixaban 5 Mg Tablet PO 5 mg Q12HR TERRENCE Administration Cyanocobalamin 1,000 mcg 12/19/24 09:00 12/22/24 09:10 Cyanocobalamin 1,000 Mcg Tablet PO 1,000 mcg DAILY TERRENCE Administration Doxazosin Mesylate 8 mg 12/18/24 21:05 12/22/24 09:10 Doxazosin Mesylate 4 Mg Tablet PO 8 mg BID TERRENCE Administration Ferrous Sulfate 325 mg 12/19/24 09:00 12/22/24 09:10 Ferrous Sulfate [address] PO 325 mg BID TERRENCE Administration Furosemide 40 mg 12/18/24 19:00 12/20/24 08:48 Furosemide Inj 40 Mg/4 Ml Vial IV PUSH 40 mg BID TERRENCE Administration Hydroxyzine HCl 10 mg 12/18/24 21:05 12/22/24 00:20 Hydroxyzine Hcl 10 Mg Tablet PO 10 mg QID PRN Administration itching Furosemide 100 mg/ Sodium 100 mls @ 6 mls/hr 12/20/24 14:45 12/22/24 04:00 Chloride IV CONT 0.05 mg/kg/hr .[id number] TERRENCE 6 mls/hr Infusion Loratadine 10 mg 12/22/24 07:57 12/22/24 09:10 Loratadine 10 Mg Tablet PO 10 mg QAM PRN Administration itch Losartan Potassium 50 mg 12/19/24 09:00 12/22/24 09:09 Losartan Potassium 50 Mg Tablet PO 50 mg DAILY TERRENCE Administration Oxybutynin Chloride 5 mg 12/19/24 09:00 12/22/24 09:09 Oxybutynin Chloride 5 Mg Tablet PO 5 mg DAILY TERRENCE Administration Propranolol HCl 120 mg 12/19/24 09:00 12/22/24 09:10 Propranolol Hcl 60 Mg Capsule Cr PO 120 mg DAILY TERRENCE Administration Tamsulosin HCl 0.4 mg 12/18/24 21:10 12/22/24 09:09 Tamsulosin Hcl 0.4 Mg Capsule PO 0.4 mg BID TERRENCE Administration Radiology Results: ITS Impressions Chest X-Ray 12/18/24 12:33 Impression: Central congestive change and mild bibasilar pulmonary edema. Cardiomegaly. Labs Labs: Laboratory Results - last 24 hr 12/22/24 04:12 WBC 1.6 L* RBC 3.28 L Hgb 8.8 L Hct 29.3 L MCV 89.3 MCH 26.8 MCHC 30.0 L RDW 17.2 H Plt Count 97 L MPV 9.7 Immature Gran % (Auto) 0.6 H Neut % (Auto) 58.7 Lymph % (Auto) 25.2 [place] % (Auto) 9.7 H Eos % (Auto) 4.5 H Baso % (Auto) 1.3 H Lymph # (Auto) 0.39 L [place] # (Auto) 0.2 Eos # (Auto) 0.1 Baso # (Auto) 0.0 Abs Immat Gran (auto) 0.01 Absolute Neuts (auto) 0.9 L Absolute Nucleated RBC 0.000 Band Neutrophils % Not Reportable Nucleated RBC % 0.0 Platelet Estimate Decreased % Immature Plt Fraction 1.1 Anisocytosis 1+ Ovalocytes 1+ Schistocytes Rare Sodium 137 Potassium 3.8 Chloride 102 Carbon Dioxide 24 Anion Gap 11 BUN 30 H Creatinine 1.56 H Estim Creat Clear Calc 48 Estimated GFR 44 L Glucose 90 Calcium 8.4 Magnesium 2.0 Total Bilirubin 0.7 AST 21 ALT 13 Alkaline Phosphatase 53 Total Protein 7.0 Albumin 3.5 Quality VTE Prophylaxis VTE prophylaxis: pharmacologic ordered (on apixaban)
[2024-12-22] MEDS: FUROSEMIDE INJ 100 MG in SODIUM CHLORIDE 0.9% IV 90 ML 6 MG IV CONT (16:35)
[2024-12-22] MEDS: ACETAMINOPHEN 325 MG TABLET 650 MG PO (23:27)
[2024-12-23] VITALS (15 sets, daily range): BP systolic 111–150; BP diastolic 56–70; PULSE 78–104; RESP 18–20; TEMP 36.3–36.9; O2SAT 95–100
[2024-12-23 04:28] LABS: Basophils Percent Auto 0.7 % (0.2-1.2); Eosinophils Absolute Auto 0.1 K/mm3 (0-0.3); Eosinophils Percent Auto 4.1 % (0-4.4); Hematocrit 27.8 % (42.0-52.0); Hemoglobin 8.4 g/dL (14.0-18.0); Immature Granulocyte Absolute 0.01 K/mm3 (0.00-0.031); Immature Granulocyte Percent A 0.7 % (0-0.5); Immature Platelet Fraction Pct 1.7 % (0.9-11.2); Lymphocytes Absolute Auto 0.39 K/mm3 (0.9-3.2); Lymphocytes Percent Auto 26.9 % (18.3-44.2); Mean Corpuscular HGB Conc 30.2 g/dl (32-36); Mean Corpuscular Hemoglobin 26.4 pg (26-34); Mean Corpuscular Volume 87.4 fl (80-100); Mean Platelet Volume 9.6 fl (7.4-10.4); Monocytes Absolute Auto 0.2 K/mm3 (0.1-0.6); Monocytes Percent Auto 10.3 % (2.6-8.5); Neutrophils Absolute Auto 0.8 K/mm3 (1.3-6.7); Neutrophils Percent Auto 57.3 % (45.5-73.1); Platelet Count Result 94 k/mm3 (150-375); Red Blood Count 3.18 M/mm3 (4.6-6.20); Red Cell Distribution Width 17.1 % (11.5-14.5)
[2024-12-23 04:41] LABS: Alanine Aminotransferase 13 U/L (6-50); Albumin Level 3.3 g/dL (3.5-5.1); Alkaline Phosphatase 51 U/L (38-126); Anion Gap 8 mmol/L (4-12); Aspartate Amino Transferase 20 U/L (17-59); Bilirubin,Total 0.6 mg/dL (0.2-1.3); Blood Urea Nitrogen 30 mg/dL (9-20); Calcium 8.4 mg/dL (8.4-10.2); Carbon Dioxide 27 mmol/L (22-30); Chloride 102 mmol/L (98-107); Estimated CRCL calculation 46 ml/min; Estimated Glomerular Filt Rate 42; Glucose 93 mg/dL (65-110); Potassium 3.4 mmol/L (3.4-5.0); Sodium 137 mmol/L (137-145)
[2024-12-23 04:57] LABS: White Blood Count 1.5 K/mm3 (4.5-10.0)
[2024-12-23 05:00] LABS: Platelet Estimate Decreased (Adequate)
[2024-12-23 05:01] LABS: Anisocytosis 1+
[2024-12-23 05:02] LABS: Ovalocytes 1+; Schistocytes None Seen
[2024-12-23] MEDS: FERROUS SULFATE 325 MG TABLET DR PO ×2 (08:29→17:32)
[2024-12-23] MEDS: LOSARTAN POTASSIUM 50 MG TABLET PO (08:29)
[2024-12-23] MEDS: allopurinoL 300 MG TABLET PO (08:29)
[2024-12-23] MEDS: CYANOCOBALAMIN 1,000 MCG TABLET 1000 MCG PO (08:29)
[2024-12-23] MEDS: APIXABAN 5 MG TABLET PO ×2 (08:29→20:33)
[2024-12-23] MEDS: PROPRANOLOL HCL 60 MG CAPSULE CR 120 MG PO (08:29)
[2024-12-23] MEDS: DOXAZOSIN MESYLATE 4 MG TABLET 8 MG PO ×2 (08:29→17:32)
[2024-12-23] MEDS: TAMSULOSIN HCL 0.4 MG CAPSULE PO ×2 (08:29→17:32)
[2024-12-23] MEDS: oxyBUTYnin CHLORIDE 5 MG TABLET PO (08:29)
[2024-12-23] MEDS: FUROSEMIDE INJ 100 MG in SODIUM CHLORIDE 0.9% IV 90 ML 6 MG IV CONT (09:29)
--- NOTE | 2024-12-23 11:08 | PM.PNCARD ---
Progress Note: A&P Assessment and Plan (1) Acute on chronic heart failure with preserved ejection fraction: Code(s): I50.33 - Acute on chronic diastolic (congestive) heart failure Status: Acute (2) Severe tricuspid regurgitation: Code(s): I07.1 - Rheumatic tricuspid insufficiency Status: Acute (3) Atherosclerotic heart disease of [place] coronary artery without angina pectoris: Code(s): I25.10 - Atherosclerotic heart disease of [place] coronary artery without angina pectoris Status: Acute (4) Presence of aortocoronary bypass graft: Onset Date: 2014 Code(s): Z95.1 - Presence of aortocoronary bypass graft Status: Acute (5) Atrial fibrillation: Code(s): I48.91 - Unspecified atrial fibrillation Status: Chronic (6) Hypertension: Code(s): I10 - Essential (primary) hypertension Status: Acute (7) Hyperlipidemia: Code(s): E78.5 - Hyperlipidemia, unspecified Status: Chronic Plan Acute on chronic heart failure with preserved ejection fraction still decompensated Severe TR-undergoing workup for the TTVR at [facility] -continue Lasix drip at 6 mg/hr. Will re-evaluate response -continue propranolol and losartan at home dose -monitor weight, ins and outs, and renal function daily -check and replace electrolytes as needed to keep K greater than 4 and Mg greater than 2 -monitor H&H and keep hemoglobin more than 8 -continue other home cardiac medications Subjective Date/time seen: 12/23/24 11:08 Interval history: no acute events Review of Systems Review of Systems: All systems reviewed & are unremarkable except as noted in HPI and below Exam Narrative: GENERAL: Obesity, in no acute distress. Well-nourished. - EYES: EOMI. Anicteric. - HENT: Moist mucous membranes. - LUNGS: Coarse breath sound bilateral base, no wheezing, rhonchi, or rales. - CARDIOVASCULAR: Regular rate and rhythm. No murmur. +ve JVD. - ABDOMEN: Soft, non-tender and non-distended. No palpable masses. - EXTREMITIES: Bilateral lower extremities, edema. Peripheral pulses 2+. Non-tender. - NEUROLOGIC: No focal neurological deficits. CN II-XII grossly intact. General weakness - PSYCHIATRIC: Awake, Alert and oriented x 3. Appropriate mood and affect. - SKIN: No rashes or lesions. Warm. - LYMPH: No cervical lymphadenopathy. Objective Data Vital Signs Vital Signs: Vital Signs - 24 hr 12/22/24 11:34 12/22/24 12:00 12/22/24 12:00 Temperature 36.9 C Pulse Rate 99 86 Respiratory Rate 18 Blood Pressure 138/63 Pulse Oximetry 98 98 Oxygen Delivery Room Air 12/22/24 14:00 12/22/24 16:00 12/22/24 16:00 Temperature 36.8 C Pulse Rate 82 82 Respiratory Rate 18 Blood Pressure 133/57 L Pulse Oximetry 99 99 Oxygen Delivery Room Air 12/22/24 16:00 12/22/24 18:00 12/22/24 20:00 Temperature 36.8 C Pulse Rate 83 92 81 Respiratory Rate 20 Blood Pressure 117/61 Pulse Oximetry 100 Oxygen Delivery 12/22/24 20:00 12/22/24 20:00 12/22/24 20:00 Temperature Pulse Rate 94 Respiratory Rate Blood Pressure 117/61 Pulse Oximetry Oxygen Delivery Room Air 12/22/24 22:00 12/22/24 23:31 12/22/24 23:34 Temperature 36.6 C Pulse Rate 85 87 Respiratory Rate 20 Blood Pressure 111/50 L Pulse Oximetry 98 Oxygen Delivery Room Air 12/23/24 00:00 12/23/24 02:00 12/23/24 04:00 Temperature 36.3 C L Pulse Rate 87 91 89 Respiratory Rate 20 Blood Pressure 111/61 Pulse Oximetry 99 Oxygen Delivery 12/23/24 04:00 12/23/24 04:00 12/23/24 04:00 Temperature Pulse Rate 85 Respiratory Rate Blood Pressure 111/61 Pulse Oximetry Oxygen Delivery Room Air 12/23/24 05:56 12/23/24 07:15 Temperature 36.8 C Pulse Rate 80 83 Respiratory Rate 18 Blood Pressure 139/70 Pulse Oximetry 95 Oxygen Delivery Intake/Output Intake/Output: Intake & Output 12/20/24 12/21/24 12/22/24 12/23/24 23:59 23:59 23:59 23:59 Intake Total 1059.1 2365.5 1315.1 614.9 Output Total 300 2300 3575 1900 Balance 759.1 65.5 -2259.9 -1285.1 Meds/Results Medications: Active Medications Generic Name Dose Route Start Last Admin Trade Name Freq PRN Reason Stop Dose Admin Acetaminophen 650 mg 12/18/24 14:49 12/22/24 23:27 Acetaminophen 325 Mg Tablet PO 650 mg Q6H PRN Administration Mild Pain (1-3) or Fever Allopurinol 300 mg 12/19/24 09:00 12/23/24 08:29 Allopurinol 300 Mg Tablet PO 300 mg DAILY TERRENCE Administration Apixaban 5 mg 12/18/24 21:05 12/23/24 08:29 Apixaban 5 Mg Tablet PO 5 mg Q12HR TERRENCE Administration Cyanocobalamin 1,000 mcg 12/19/24 09:00 12/23/24 08:29 Cyanocobalamin 1,000 Mcg Tablet PO 1,000 mcg DAILY TERRENCE Administration Doxazosin Mesylate 8 mg 12/18/24 21:05 12/23/24 08:29 Doxazosin Mesylate 4 Mg Tablet PO 8 mg BID TERRENCE Administration Ferrous Sulfate 325 mg 12/19/24 09:00 12/23/24 08:29 Ferrous Sulfate [address] PO 325 mg BID TERRENCE Administration Furosemide 40 mg 12/18/24 19:00 12/20/24 08:48 Furosemide Inj 40 Mg/4 Ml Vial IV PUSH 40 mg BID TERRENCE Administration Furosemide 100 mg/ Sodium 100 mls @ 6 mls/hr 12/20/24 14:45 12/23/24 09:29 Chloride IV CONT 0.05 mg/kg/hr .[id number] TERRENCE 6 mls/hr Administration Loratadine 10 mg 12/22/24 07:57 12/22/24 09:10 Loratadine 10 Mg Tablet PO 10 mg QAM PRN Administration itch Losartan Potassium 50 mg 12/19/24 09:00 12/23/24 08:29 Losartan Potassium 50 Mg Tablet PO 50 mg DAILY TERRENCE Administration Oxybutynin Chloride 5 mg 12/19/24 09:00 12/23/24 08:29 Oxybutynin Chloride 5 Mg Tablet PO 5 mg DAILY TERRENCE Administration Propranolol HCl 120 mg 12/19/24 09:00 12/23/24 08:29 Propranolol Hcl 60 Mg Capsule Cr PO 120 mg DAILY TERRENCE Administration Tamsulosin HCl 0.4 mg 12/18/24 21:10 12/23/24 08:29 Tamsulosin Hcl 0.4 Mg Capsule PO 0.4 mg BID TERRENCE Administration Radiology Results: ITS Impressions Chest X-Ray 12/18/24 12:33 Impression: Central congestive change and mild bibasilar pulmonary edema. Cardiomegaly. Labs Labs: Laboratory Results - last 24 hr 12/23/24 04:06 WBC 1.5 L* RBC 3.18 L Hgb 8.4 L Hct 27.8 L MCV 87.4 MCH 26.4 MCHC 30.2 L RDW 17.1 H Plt Count 94 L MPV 9.6 Immature Gran % (Auto) 0.7 H Neut % (Auto) 57.3 Lymph % (Auto) 26.9 [place] % (Auto) 10.3 H Eos % (Auto) 4.1 Baso % (Auto) 0.7 Lymph # (Auto) 0.39 L [place] # (Auto) 0.2 Eos # (Auto) 0.1 Baso # (Auto) 0.0 Abs Immat Gran (auto) 0.01 Absolute Neuts (auto) 0.8 L Absolute Nucleated RBC 0.000 Band Neutrophils % Not Reportable Nucleated RBC % 0.0 Platelet Estimate Decreased % Immature Plt Fraction 1.7 Anisocytosis 1+ Ovalocytes 1+ Schistocytes None seen Sodium 137 Potassium 3.4 Chloride 102 Carbon Dioxide 27 Anion Gap 8 BUN 30 H Creatinine 1.61 H Estim Creat Clear Calc 46 Estimated GFR 42 L Glucose 93 Calcium 8.4 Magnesium 2.0 Total Bilirubin 0.6 AST 20 ALT 13 Alkaline Phosphatase 51 Total Protein 6.0 L Albumin 3.3 L
--- NOTE | 2024-12-23 13:52 | PM.IMPN ---
Progress Note: A&P Assessment and Plan (1) Acute on chronic congestive heart failure: Code(s): I50.9 - Heart failure, unspecified Status: Acute (2) Severe tricuspid regurgitation: Code(s): I07.1 - Rheumatic tricuspid insufficiency Status: Acute (3) Chronic kidney disease, stage 3: Code(s): N18.30 - Chronic kidney disease, stage 3 unspecified Status: Acute (4) Pancytopenia: Code(s): D61.818 - Other pancytopenia Status: Acute (5) Hypertension: Code(s): I10 - Essential (primary) hypertension Status: Acute (6) Benign prostatic hyperplasia: Code(s): N40.0 - Benign prostatic hyperplasia without lower urinary tract symptoms Status: Acute Plan Acute on chronic heart failure with preserved ejection fraction Severe TR TTE showed EF 50-55%, with severe tricuspid regurge and <50% collapse of IVC on inspiration -continue propranolol Monitor Is and Os and vital signs On Lasix infusion per cards Leg edema improving cardiology following atrial fibrillation, CAD, status post Watchman, coronary artery disease status post 3 vessel bypass, severe tricuspid regurgitation with plans recent discussion for transcatheter tricuspid valve replacement per Dr. 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 Exam Narrative: GENERAL: Obesity, in no acute distress. Well-nourished. - EYES: EOMI. Anicteric. - HENT: Moist mucous membranes. - LUNGS: Coarse breath sound bilateral base, no wheezing, rhonchi, or rales. - CARDIOVASCULAR: Regular rate and rhythm. No murmur. No JVD. - ABDOMEN: Soft, non-tender and non-distended. No palpable masses. - EXTREMITIES: Bilateral lower extremities, edema. Peripheral pulses 2+. Non-tender. - NEUROLOGIC: No focal neurological deficits. CN II-XII grossly intact. General weakness - PSYCHIATRIC: Awake, Alert and oriented x 3. Appropriate mood and affect. - SKIN: No rashes or lesions. Warm. - LYMPH: No cervical lymphadenopathy. Objective Data Vital Signs Vital Signs: Vital Signs - 24 hr 12/22/24 14:00 12/22/24 16:00 12/22/24 16:00 Temperature 98.3 F Pulse Rate 82 82 Respiratory Rate 18 Blood Pressure 133/57 L Pulse Oximetry 99 99 Oxygen Delivery Room Air 12/22/24 16:00 12/22/24 18:00 12/22/24 20:00 Temperature 98.2 F Pulse Rate 83 92 81 Respiratory Rate 20 Blood Pressure 117/61 Pulse Oximetry 100 Oxygen Delivery 12/22/24 20:00 12/22/24 20:00 12/22/24 20:00 Temperature Pulse Rate 94 Respiratory Rate Blood Pressure 117/61 Pulse Oximetry Oxygen Delivery Room Air 12/22/24 22:00 12/22/24 23:31 12/22/24 23:34 Temperature 98 F Pulse Rate 85 87 Respiratory Rate 20 Blood Pressure 111/50 L Pulse Oximetry 98 Oxygen Delivery Room Air 12/23/24 00:00 12/23/24 02:00 12/23/24 04:00 Temperature 97.4 F L Pulse Rate 87 91 89 Respiratory Rate 20 Blood Pressure 111/61 Pulse Oximetry 99 Oxygen Delivery 12/23/24 04:00 12/23/24 04:00 12/23/24 04:00 Temperature Pulse Rate 85 Respiratory Rate Blood Pressure 111/61 Pulse Oximetry Oxygen Delivery Room Air 12/23/24 05:56 12/23/24 07:15 12/23/24 08:00 Temperature 98.3 F Pulse Rate 80 83 92 Respiratory Rate 18 Blood Pressure 139/70 Pulse Oximetry 95 Oxygen Delivery 12/23/24 10:00 12/23/24 11:40 12/23/24 12:00 Temperature 98.5 F Pulse Rate 101 H 95 104 H Respiratory Rate 18 Blood Pressure 134/70 Pulse Oximetry 100 Oxygen Delivery Intake/Output Intake/Output: Intake & Output 12/20/24 12/21/24 12/22/24 12/23/24 23:59 23:59 23:59 23:59 Intake Total 1059.1 2365.5 1315.1 854.9 Output Total 300 2300 3575 1900 Balance 759.1 65.5 -2259.9 -1045.1 Meds/Results Medications: Active Medications Generic Name Dose Route Start Last Admin Trade Name Freq PRN Reason Stop Dose Admin Acetaminophen 650 mg 12/18/24 14:49 12/22/24 23:27 Acetaminophen 325 Mg Tablet PO 650 mg Q6H PRN Administration Mild Pain (1-3) or Fever Allopurinol 300 mg 12/19/24 09:00 12/23/24 08:29 Allopurinol 300 Mg Tablet PO 300 mg DAILY TERRENCE Administration Apixaban 5 mg 12/18/24 21:05 12/23/24 08:29 Apixaban 5 Mg Tablet PO 5 mg Q12HR TERRENCE Administration Cyanocobalamin 1,000 mcg 12/19/24 09:00 12/23/24 08:29 Cyanocobalamin 1,000 Mcg Tablet PO 1,000 mcg DAILY TERRENCE Administration Doxazosin Mesylate 8 mg 12/18/24 21:05 12/23/24 08:29 Doxazosin Mesylate 4 Mg Tablet PO 8 mg BID TERRENCE Administration Ferrous Sulfate 325 mg 12/19/24 09:00 12/23/24 08:29 Ferrous Sulfate [address] PO 325 mg BID TERRENCE Administration Furosemide 40 mg 12/18/24 19:00 12/20/24 08:48 Furosemide Inj 40 Mg/4 Ml Vial IV PUSH 40 mg BID TERRENCE Administration Furosemide 100 mg/ Sodium 100 mls @ 6 mls/hr 12/20/24 14:45 12/23/24 09:29 Chloride IV CONT 0.05 mg/kg/hr .[id number] TERRENCE 6 mls/hr Administration Loratadine 10 mg 12/22/24 07:57 12/22/24 09:10 Loratadine 10 Mg Tablet PO 10 mg QAM PRN Administration itch Losartan Potassium 50 mg 12/19/24 09:00 12/23/24 08:29 Losartan Potassium 50 Mg Tablet PO 50 mg DAILY TERRENCE Administration Oxybutynin Chloride 5 mg 12/19/24 09:00 12/23/24 08:29 Oxybutynin Chloride 5 Mg Tablet PO 5 mg DAILY TERRENCE Administration Propranolol HCl 120 mg 12/19/24 09:00 12/23/24 08:29 Propranolol Hcl 60 Mg Capsule Cr PO 120 mg DAILY TERRENCE Administration Tamsulosin HCl 0.4 mg 12/18/24 21:10 12/23/24 08:29 Tamsulosin Hcl 0.4 Mg Capsule PO 0.4 mg BID TERRENCE Administration Radiology Results: ITS Impressions Chest X-Ray 12/18/24 12:33 Impression: Central congestive change and mild bibasilar pulmonary edema. Cardiomegaly. Labs Labs: Laboratory Results - last 24 hr 12/23/24 04:06 WBC 1.5 L* RBC 3.18 L Hgb 8.4 L Hct 27.8 L MCV 87.4 MCH 26.4 MCHC 30.2 L RDW 17.1 H Plt Count 94 L MPV 9.6 Immature Gran % (Auto) 0.7 H Neut % (Auto) 57.3 Lymph % (Auto) 26.9 [place] % (Auto) 10.3 H Eos % (Auto) 4.1 Baso % (Auto) 0.7 Lymph # (Auto) 0.39 L [place] # (Auto) 0.2 Eos # (Auto) 0.1 Baso # (Auto) 0.0 Abs Immat Gran (auto) 0.01 Absolute Neuts (auto) 0.8 L Absolute Nucleated RBC 0.000 Band Neutrophils % Not Reportable Nucleated RBC % 0.0 Platelet Estimate Decreased % Immature Plt Fraction 1.7 Anisocytosis 1+ Ovalocytes 1+ Schistocytes None seen Sodium 137 Potassium 3.4 Chloride 102 Carbon Dioxide 27 Anion Gap 8 BUN 30 H Creatinine 1.61 H Estim Creat Clear Calc 46 Estimated GFR 42 L Glucose 93 Calcium 8.4 Magnesium 2.0 Total Bilirubin 0.6 AST 20 ALT 13 Alkaline Phosphatase 51 Total Protein 6.0 L Albumin 3.3 L Quality VTE Prophylaxis VTE prophylaxis: pharmacologic ordered (on apixaban)
[2024-12-23] MEDS: ACETAMINOPHEN 325 MG TABLET 650 MG PO ×2 (17:32→23:48)
[2024-12-23] MEDS: LORATADINE 10 MG TABLET PO (18:19)
[2024-12-24] VITALS (11 sets, daily range): BP systolic 128–140; BP diastolic 54–73; PULSE 75–107; RESP 18–22; TEMP 36.4–37.1; O2SAT 96–98
[2024-12-24] MEDS: FUROSEMIDE INJ 100 MG in SODIUM CHLORIDE 0.9% IV 90 ML 6 MG IV CONT (01:47)
[2024-12-24 04:31] LABS: Basophils Percent Auto 0.7 % (0.2-1.2); Eosinophils Absolute Auto 0.1 K/mm3 (0-0.3); Eosinophils Percent Auto 3.3 % (0-4.4); Hematocrit 28.3 % (42.0-52.0); Hemoglobin 8.6 g/dL (14.0-18.0); Immature Platelet Fraction Pct 1.4 % (0.9-11.2); Lymphocytes Absolute Auto 0.46 K/mm3 (0.9-3.2); Lymphocytes Percent Auto 30.5 % (18.3-44.2); Mean Corpuscular HGB Conc 30.4 g/dl (32-36); Mean Corpuscular Hemoglobin 26.3 pg (26-34); Mean Corpuscular Volume 86.5 fl (80-100); Mean Platelet Volume 9.9 fl (7.4-10.4); Monocytes Absolute Auto 0.2 K/mm3 (0.1-0.6); Monocytes Percent Auto 9.9 % (2.6-8.5); Neutrophils Absolute Auto 0.8 K/mm3 (1.3-6.7); Neutrophils Percent Auto 55.6 % (45.5-73.1); Platelet Count Result 96 k/mm3 (150-375); Red Blood Count 3.27 M/mm3 (4.6-6.20); Red Cell Distribution Width 17.2 % (11.5-14.5)
[2024-12-24 04:49] LABS: Alanine Aminotransferase 13 U/L (6-50); Albumin Level 3.4 g/dL (3.5-5.1); Alkaline Phosphatase 50 U/L (38-126); Anion Gap 9 mmol/L (4-12); Aspartate Amino Transferase 20 U/L (17-59); Bilirubin,Total 0.5 mg/dL (0.2-1.3); Blood Urea Nitrogen 29 mg/dL (9-20); Calcium 8.4 mg/dL (8.4-10.2); Carbon Dioxide 27 mmol/L (22-30); Chloride 101 mmol/L (98-107); Estimated CRCL calculation 48 ml/min; Estimated Glomerular Filt Rate 45; Glucose 90 mg/dL (65-110); Potassium 3.4 mmol/L (3.4-5.0); Sodium 137 mmol/L (137-145)
[2024-12-24 06:09] LABS: White Blood Count 1.5 K/mm3 (4.5-10.0)
[2024-12-24 06:12] LABS: Anisocytosis 1+; Hypochromasia 1+; Microcytosis 1+ (NORMAL); Ovalocytes 1+; Platelet Estimate Decreased (Adequate); Poikilocytosis 1+
[2024-12-24 06:13] LABS: Burr Cells 1+; Schistocytes None Seen
[2024-12-24] MEDS: DOXAZOSIN MESYLATE 4 MG TABLET 8 MG PO ×2 (09:12→17:14)
[2024-12-24] MEDS: FERROUS SULFATE 325 MG TABLET DR PO ×2 (09:12→17:14)
[2024-12-24] MEDS: APIXABAN 5 MG TABLET PO ×2 (09:12→20:37)
[2024-12-24] MEDS: PROPRANOLOL HCL 60 MG CAPSULE CR 120 MG PO (09:12)
[2024-12-24] MEDS: LOSARTAN POTASSIUM 50 MG TABLET PO (09:13)
[2024-12-24] MEDS: CYANOCOBALAMIN 1,000 MCG TABLET 1000 MCG PO (09:13)
[2024-12-24] MEDS: TAMSULOSIN HCL 0.4 MG CAPSULE PO ×2 (09:13→17:14)
[2024-12-24] MEDS: allopurinoL 300 MG TABLET PO (09:13)
[2024-12-24] MEDS: oxyBUTYnin CHLORIDE 5 MG TABLET PO (09:13)
[2024-12-24] MEDS: ACETAMINOPHEN 325 MG TABLET 650 MG PO (09:40)
[2024-12-24] MEDS: LORATADINE 10 MG TABLET PO (10:56)
--- NOTE | 2024-12-24 12:01 | PM.PNCARD ---
Progress Note: A&P Assessment and Plan (1) Acute on chronic heart failure with preserved ejection fraction: Code(s): I50.33 - Acute on chronic diastolic (congestive) heart failure Status: Acute (2) Severe tricuspid regurgitation: Code(s): I07.1 - Rheumatic tricuspid insufficiency Status: Acute (3) Atherosclerotic heart disease of [place] coronary artery without angina pectoris: Code(s): I25.10 - Atherosclerotic heart disease of [place] coronary artery without angina pectoris Status: Acute (4) Presence of aortocoronary bypass graft: Onset Date: 2014 Code(s): Z95.1 - Presence of aortocoronary bypass graft Status: Acute (5) Atrial fibrillation: Code(s): I48.91 - Unspecified atrial fibrillation Status: Chronic (6) Hypertension: Code(s): I10 - Essential (primary) hypertension Status: Acute (7) Hyperlipidemia: Code(s): E78.5 - Hyperlipidemia, unspecified Status: Chronic Plan Acute on chronic heart failure with preserved ejection fraction still decompensated Severe TR-undergoing workup for the T[facility] at [facility] -Has probably achieved maximum benefit of lasix drip. Will shift him back to lasix 40mg IV b.i.d. today. -continue propranolol and losartan at home dose -monitor weight, ins and outs, and renal function daily -check and replace electrolytes as needed to keep K greater than 4 and Mg greater than 2 -monitor H&H and keep hemoglobin more than 8 -continue other home cardiac medications -Will add jardiance -1500cc fluid restruction Subjective Date/time seen: 12/24/24 12:01 Interval history: Cardiology follow up visit Feeling much better. Shortness of breath has resolved. He still has significant lower extremity edema but this has significantly improved as well. Review of Systems Review of Systems: Complete review of systems was performed and negative other than those mentioned HPI All systems reviewed & are unremarkable except as noted in HPI and below Exam Narrative: GENERAL: Obesity, in no acute distress. Well-nourished. - EYES: EOMI. Anicteric. - HENT: Moist mucous membranes. - LUNGS: Clear to auscultation - CARDIOVASCULAR: Regular rate and rhythm. No murmur. No JVD - ABDOMEN: Soft, non-tender and non-distended. No palpable masses. - EXTREMITIES: Bilateral lower extremities, edema. Peripheral pulses 2+. Non-tender. - NEUROLOGIC: No focal neurological deficits. CN II-XII grossly intact. General weakness - PSYCHIATRIC: Awake, Alert and oriented x 3. Appropriate mood and affect. - SKIN: No rashes or lesions. Warm. - LYMPH: No cervical lymphadenopathy. Objective Data Vital Signs Vital Signs: Vital Signs - 24 hr 12/23/24 14:00 12/23/24 16:00 12/23/24 16:00 Temperature 36.8 C Pulse Rate 83 93 Respiratory Rate 18 Blood Pressure 150/64 H Pulse Oximetry 96 Oxygen Delivery Room Air 12/23/24 16:00 12/23/24 18:00 12/23/24 20:00 Temperature 36.9 C Pulse Rate 95 87 78 Respiratory Rate 20 Blood Pressure 124/56 L Pulse Oximetry 98 Oxygen Delivery 12/23/24 20:00 12/23/24 20:00 12/23/24 22:00 Temperature Pulse Rate 80 80 84 Respiratory Rate 20 Blood Pressure Pulse Oximetry 98 Oxygen Delivery Room Air 12/23/24 23:57 12/24/24 00:00 12/24/24 00:00 Temperature 36.9 C Pulse Rate 95 87 87 Respiratory Rate 20 20 Blood Pressure 122/59 L Pulse Oximetry 98 98 Oxygen Delivery Room Air 12/24/24 02:00 12/24/24 03:38 12/24/24 03:42 Temperature 37.1 C Pulse Rate 82 85 87 Respiratory Rate 20 20 Blood Pressure 128/56 L Pulse Oximetry 98 98 Oxygen Delivery Room Air 12/24/24 03:42 12/24/24 05:17 12/24/24 07:55 Temperature 36.6 C Pulse Rate 87 90 81 Respiratory Rate 18 Blood Pressure 140/73 Pulse Oximetry 97 Oxygen Delivery 12/24/24 08:00 12/24/24 08:00 12/24/24 09:12 Temperature Pulse Rate 107 H 78 Respiratory Rate Blood Pressure Pulse Oximetry Oxygen Delivery Room Air 12/24/24 10:00 Temperature Pulse Rate 96 Respiratory Rate Blood Pressure Pulse Oximetry Oxygen Delivery Intake/Output Intake/Output: Intake & Output 12/21/24 12/22/24 12/23/24 12/24/24 23:59 23:59 23:59 23:59 Intake Total 2365.5 1315.1 1334.9 1277.8 Output Total 2300 3575 2900 1300 Balance 65.5 -2259.9 -1565.1 -22.2 Meds/Results Medications: Active Medications Generic Name Dose Route Start Last Admin Trade Name Uriel PRN Reason Stop Dose Admin Acetaminophen 650 mg 12/18/24 14:49 12/24/24 09:40 Acetaminophen 325 Mg Tablet PO 650 mg Q6H PRN Administration Mild Pain (1-3) or Fever Allopurinol 300 mg 12/19/24 09:00 12/24/24 09:13 Allopurinol 300 Mg Tablet PO 300 mg DAILY TERRENCE Administration Apixaban 5 mg 12/18/24 21:05 12/24/24 09:12 Apixaban 5 Mg Tablet PO 5 mg Q12HR TERRENCE Administration Cyanocobalamin 1,000 mcg 12/19/24 09:00 12/24/24 09:13 Cyanocobalamin 1,000 Mcg Tablet PO 1,000 mcg DAILY TERRENCE Administration Doxazosin Mesylate 8 mg 12/18/24 21:05 12/24/24 09:12 Doxazosin Mesylate 4 Mg Tablet PO 8 mg BID TERRENCE Administration Empagliflozin 10 mg 12/25/24 09:00 Empagliflozin 10 Mg Tablet PO DAILY TERRENCE Ferrous Sulfate 325 mg 12/19/24 09:00 12/24/24 09:12 Ferrous Sulfate [address] PO 325 mg BID TERRENCE Administration Furosemide 40 mg 12/18/24 19:00 12/20/24 08:48 Furosemide Inj 40 Mg/4 Ml Vial IV PUSH 40 mg BID TERRENCE Administration Loratadine 10 mg 12/22/24 07:57 12/24/24 10:56 Loratadine 10 Mg Tablet PO 10 mg QAM PRN Administration itch Losartan Potassium 50 mg 12/19/24 09:00 12/24/24 09:13 Losartan Potassium 50 Mg Tablet PO 50 mg DAILY TERRENCE Administration Oxybutynin Chloride 5 mg 12/19/24 09:00 12/24/24 09:13 Oxybutynin Chloride 5 Mg Tablet PO 5 mg DAILY TERRENCE Administration Propranolol HCl 120 mg 12/19/24 09:00 12/24/24 09:12 Propranolol Hcl 60 Mg Capsule Cr PO 120 mg DAILY TERRENCE Administration Tamsulosin HCl 0.4 mg 12/18/24 21:10 12/24/24 09:13 Tamsulosin Hcl 0.4 Mg Capsule PO 0.4 mg BID TERRENCE Administration Radiology Results: ITS Impressions Chest X-Ray 12/18/24 12:33 Impression: Central congestive change and mild bibasilar pulmonary edema. Cardiomegaly. Labs Labs: Laboratory Results - last 24 hr 12/24/24 03:59 WBC 1.5 L* RBC 3.27 L Hgb 8.6 L Hct 28.3 L MCV 86.5 MCH 26.3 MCHC 30.4 L RDW 17.2 H Plt Count 96 L MPV 9.9 Immature Gran % (Auto) 0.0 Neut % (Auto) 55.6 Lymph % (Auto) 30.5 [place] % (Auto) 9.9 H Eos % (Auto) 3.3 Baso % (Auto) 0.7 Lymph # (Auto) 0.46 L [place] # (Auto) 0.2 Eos # (Auto) 0.1 Baso # (Auto) 0.0 Abs Immat Gran (auto) 0.00 Absolute Neuts (auto) 0.8 L Absolute Nucleated RBC 0.000 Band Neutrophils % Not Reportable Nucleated RBC % 0.0 Platelet Estimate Decreased % Immature Plt Fraction 1.4 Hypochromasia 1+ Poikilocytosis 1+ Anisocytosis 1+ Microcytosis 1+ Ovalocytes 1+ Antonio Cells 1+ Schistocytes None seen Sodium 137 Potassium 3.4 Chloride 101 Carbon Dioxide 27 Anion Gap 9 BUN 29 H Creatinine 1.52 H Estim Creat Clear Calc 48 Estimated GFR 45 L Glucose 90 Calcium 8.4 Magnesium 2.0 Total Bilirubin 0.5 AST 20 ALT 13 Alkaline Phosphatase 50 Total Protein 7.0 Albumin 3.4 L Quality VTE Prophylaxis VTE prophylaxis: pharmacologic ordered (on apixaban)
--- NOTE | 2024-12-24 15:43 | P.PNIM_ITS ---
Progress Note: A&P Assessment and Plan (1) Acute on chronic congestive heart failure: Code(s): I50.9 - Heart failure, unspecified Status: Acute (2) Severe tricuspid regurgitation: Code(s): I07.1 - Rheumatic tricuspid insufficiency Status: Acute (3) Chronic kidney disease, stage 3: Code(s): N18.30 - Chronic kidney disease, stage 3 unspecified Status: Acute (4) Pancytopenia: Code(s): D61.818 - Other pancytopenia Status: Acute (5) Hypertension: Code(s): I10 - Essential (primary) hypertension Status: Acute (6) Benign prostatic hyperplasia: Code(s): N40.0 - Benign prostatic hyperplasia without lower urinary tract symptoms Status: Acute Plan Acute on chronic heart failure with preserved ejection fraction Severe TR TTE showed EF 50-55%, with severe tricuspid regurge and <50% collapse of IVC on inspiration -continue propranolol Monitor Is and Os and vital signs S/p Lasix infusion, continue Lasix 40mg bid IV Leg edema improving cardiology following atrial fibrillation, CAD, status post Watchman, coronary artery disease status post 3 vessel bypass, severe tricuspid regurgitation with plans recent discussion for transcatheter tricuspid valve replacement per Dr. 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 severe tricuspid regurgitation Patient has follow up at [facility] with Dr Arnav Lovett for TAVR continue above Pancytopenia related to splenomegaly per Hematology stable Hb 8.8, WBC 1.6 and Plts 97 monitor H&H and keep hemoglobin more than 8 continue outpatient follow up CKD 3 A Renal function is stable DVT prophylaxis on Eliquis awaiting cardiology clearance for discharge Subjective Date/time seen: 12/24/24 15:43 Interval history: Comfortable at bedside transitioned to IV lasix 40mg Bid IV Review of Systems Review of Systems: 12 systems were reviewed and are negativ e except for as per HPI. Exam Narrative: GENERAL: Obesity, in no acute distress. Well-nourished. - EYES: EOMI. Anicteric. - HENT: Moist mucous membranes. - LUNGS: Coarse breath sound bilateral base, no wheezing, rhonchi, or rales. - CARDIOVASCULAR: Regular rate and rhyth m. No murmur. No JVD. - ABDOMEN: Soft, non-tender and non-dist ended. No palpable masses. - EXTREMITIES: Bilateral lower extremit ies, edema. Peripheral pulses 2+. Non- tender. - NEUROLOGIC: No focal neurological defi cits. CN II-XII grossly intact. General weakness - PSYCHIATRIC: Awake, Alert and oriented x 3. Appropriate mood and affect. - SKIN: No rashes or lesions. Warm. - LYMPH: No cervical lymphadenopathy. Objective Data Vital Signs Vital Signs: Vital Signs - 24 hr 12/23/24 16:00 12/23/24 16:00 12/23/24 16:00 Temperature 98.3 F Pulse Rate 93 95 Respiratory Rate 18 Blood Pressure 150/64 H Pulse Oximetry 96 Oxygen Delivery Room Air 12/23/24 18:00 12/23/24 20:00 12/23/24 20:00 Temperature 98.5 F Pulse Rate 87 78 80 Respiratory Rate 20 20 Blood Pressure 124/56 L Pulse Oximetry 98 98 Oxygen Delivery Room Air 12/23/24 20:00 12/23/24 22:00 12/23/24 23:57 Temperature 98.4 F Pulse Rate 80 84 95 Respiratory Rate 20 Blood Pressure 122/59 L Pulse Oximetry 98 Oxygen Delivery 12/24/24 00:00 12/24/24 00:00 12/24/24 02:00 Temperature Pulse Rate 87 87 82 Respiratory Rate 20 Blood Pressure Pulse Oximetry 98 Oxygen Delivery Room Air 12/24/24 03:38 12/24/24 03:42 12/24/24 03:42 Temperature 98.8 F Pulse Rate 85 87 87 Respiratory Rate 20 20 Blood Pressure 128/56 L Pulse Oximetry 98 98 Oxygen Delivery Room Air 12/24/24 05:17 12/24/24 07:55 12/24/24 08:00 Temperature 98 F Pulse Rate 90 81 Respiratory Rate 18 Blood Pressure 140/73 Pulse Oximetry 97 Oxygen Delivery Room Air 12/24/24 08:00 12/24/24 09:12 12/24/24 10:00 Temperature Pulse Rate 107 H 78 96 Respiratory Rate Blood Pressure Pulse Oximetry Oxygen Delivery Intake/Output Intake/Output: Intake & Output 12/21/24 12/22/24 12/23/24 12/24/24 23:59 23:59 23:59 23:59 Intake Total 2365.5 1315.1 1334.9 1517.8 Output Total 2300 3575 2900 1300 Balance 65.5 -2259.9 -1565.1 217.8 Meds/Results Medications: Active Medications Generic Name Dose Route Start Last Admin Trade Name Freq PRN Reason Stop Dose Admin Acetaminophen 650 mg 12/18/24 14:49 12/24/24 09:40 Acetaminophen 325 Mg Tablet PO 650 mg Q6H PRN Administration Mild Pain (1-3) or Fever Allopurinol 300 mg 12/19/24 09:00 12/24/24 09:13 Allopurinol 300 Mg Tablet PO 300 mg DAILY TERRENCE Administration Apixaban 5 mg 12/18/24 21:05 12/24/24 09:12 Apixaban 5 Mg Tablet PO 5 mg Q12HR TERRENCE Administration Cyanocobalamin 1,000 mcg 12/19/24 09:00 12/24/24 09:13 Cyanocobalamin 1,000 Mcg Tablet PO 1,000 mcg DAILY TERRENCE Administration Doxazosin Mesylate 8 mg 12/18/24 21:05 12/24/24 09:12 Doxazosin Mesylate 4 Mg Tablet PO 8 mg BID TERRENCE Administration Empagliflozin 10 mg 12/25/24 09:00 Empagliflozin 10 Mg Tablet PO DAILY [facility] Ferrous Sulfate 325 mg 12/19/24 09:00 12/24/24 09:12 Ferrous Sulfate [address] PO 325 mg BID TERRENCE Administration Furosemide 40 mg 12/18/24 19:00 12/20/24 08:48 Furosemide Inj 40 Mg/4 Ml Vial IV PUSH 40 mg BID TERRENCE Administration Loratadine 10 mg 12/22/24 07:57 12/24/24 10:56 Loratadine 10 Mg Tablet PO 10 mg QAM PRN Administration itch Losartan Potassium 50 mg 12/19/24 09:00 12/24/24 09:13 Losartan Potassium 50 Mg Tablet PO 50 mg DAILY TERRENCE Administration Oxybutynin Chloride 5 mg 12/19/24 09:00 12/24/24 09:13 Oxybutynin Chloride 5 Mg Tablet PO 5 mg DAILY TERRENCE Administration Propranolol HCl 120 mg 12/19/24 09:00 12/24/24 09:12 Propranolol Hcl 60 Mg Capsule Cr PO 120 mg DAILY TERRENCE Administration Tamsulosin HCl 0.4 mg 12/18/24 21:10 12/24/24 09:13 Tamsulosin Hcl 0.4 Mg Capsule PO 0.4 mg BID TERRENCE Administration Radiology Results: ITS Impressions Chest X-Ray 12/18/24 12:33 Impression: Central congestive change and mild bibasilar pulmonary edema. Cardiomegaly. Labs Labs: Laboratory Results - last 24 hr 12/24/24 03:59 WBC 1.5 L* RBC 3.27 L Hgb 8.6 L Hct 28.3 L MCV 86.5 MCH 26.3 MCHC 30.4 L RDW 17.2 H Plt Count 96 L MPV 9.9 Immature Gran % (Auto) 0.0 Neut % (Auto) 55.6 Lymph % (Auto) 30.5 [place] % (Auto) 9.9 H Eos % (Auto) 3.3 Baso % (Auto) 0.7 Lymph # (Auto) 0.46 L [place] # (Auto) 0.2 Eos # (Auto) 0.1 Baso # (Auto) 0.0 Abs Immat Gran (auto) 0.00 Absolute Neuts (auto) 0.8 L Absolute Nucleated RBC 0.000 Band Neutrophils % Not Reportable Nucleated RBC % 0.0 Platelet Estimate Decreased % Immature Plt Fraction 1.4 Hypochromasia 1+ Poikilocytosis 1+ Anisocytosis 1+ Microcytosis 1+ Ovalocytes 1+ Antonio Cells 1+ Schistocytes None seen Sodium 137 Potassium 3.4 Chloride 101 Carbon Dioxide 27 Anion Gap 9 BUN 29 H Creatinine 1.52 H Estim Creat Clear Calc 48 Estimated GFR 45 L Glucose 90 Calcium 8.4 Magnesium 2.0 Total Bilirubin 0.5 AST 20 ALT 13 Alkaline Phosphatase 50 Total Protein 7.0 Albumin 3.4 L Quality VTE Prophylaxis VTE prophylaxis: pharmacologic ordered (on apixaban)
[2024-12-24] MEDS: FUROSEMIDE INJ 40 MG/4 ML VIAL IV PUSH (17:14)
[2024-12-25 05:56] VITALS: BP 110/59; PULSE 86; RESP 18; TEMP 36.8; O2SAT 95
[2024-12-25 05:56] LABS: Eosinophils Absolute Auto 0.1 K/mm3 (0-0.3); Eosinophils Percent Auto 3.4 % (0-4.4); Hematocrit 29.1 % (42.0-52.0); Hemoglobin 8.9 g/dL (14.0-18.0); Immature Platelet Fraction Pct 1.7 % (0.9-11.2); Lymphocytes Absolute Auto 0.38 K/mm3 (0.9-3.2); Mean Corpuscular HGB Conc 30.6 g/dl (32-36); Mean Corpuscular Hemoglobin 27.2 pg (26-34); Mean Platelet Volume 10.2 fl (7.4-10.4); Monocytes Absolute Auto 0.1 K/mm3 (0.1-0.6); Monocytes Percent Auto 9.6 % (2.6-8.5); Neutrophils Absolute Auto 0.9 K/mm3 (1.3-6.7); Platelet Count Result 94 k/mm3 (150-375); Red Blood Count 3.27 M/mm3 (4.6-6.20); Red Cell Distribution Width 17.2 % (11.5-14.5)
[2024-12-25 06:08] LABS: Alanine Aminotransferase 14 U/L (6-50); Albumin Level 3.5 g/dL (3.5-5.1); Alkaline Phosphatase 49 U/L (38-126); Anion Gap 9 mmol/L (4-12); Aspartate Amino Transferase 20 U/L (17-59); Bilirubin,Total 0.6 mg/dL (0.2-1.3); Blood Urea Nitrogen 28 mg/dL (9-20); Calcium 8.6 mg/dL (8.4-10.2); Carbon Dioxide 29 mmol/L (22-30); Chloride 100 mmol/L (98-107); Estimated CRCL calculation 48 ml/min; Estimated Glomerular Filt Rate 45; Glucose 88 mg/dL (65-110); Potassium 3.4 mmol/L (3.4-5.0); Sodium 138 mmol/L (137-145)
[2024-12-25 06:38] LABS: White Blood Count 1.5 K/mm3 (4.5-10.0)
[2024-12-25 08:00] VITALS: PULSE 86; RESP 18; O2SAT 95
[2024-12-25] MEDS: PROPRANOLOL HCL 60 MG CAPSULE CR 120 MG PO (09:02)
[2024-12-25] MEDS: APIXABAN 5 MG TABLET PO ×2 (09:02→21:03)
[2024-12-25] MEDS: EMPAGLIFLOZIN 10 MG TABLET PO (09:02)
[2024-12-25] MEDS: FUROSEMIDE INJ 40 MG/4 ML VIAL IV PUSH ×2 (09:02→16:38)
[2024-12-25] MEDS: CYANOCOBALAMIN 1,000 MCG TABLET 1000 MCG PO (09:03)
[2024-12-25] MEDS: LORATADINE 10 MG TABLET PO (09:03)
[2024-12-25] MEDS: LOSARTAN POTASSIUM 50 MG TABLET PO (09:03)
[2024-12-25] MEDS: FERROUS SULFATE 325 MG TABLET DR PO ×2 (09:03→16:38)
[2024-12-25] MEDS: oxyBUTYnin CHLORIDE 5 MG TABLET PO (09:03)
[2024-12-25] MEDS: allopurinoL 300 MG TABLET PO (09:03)
[2024-12-25] MEDS: TAMSULOSIN HCL 0.4 MG CAPSULE PO ×2 (09:03→16:38)
[2024-12-25] MEDS: DOXAZOSIN MESYLATE 4 MG TABLET 8 MG PO ×2 (09:03→16:38)
--- NOTE | 2024-12-25 09:44 | PCNWS ---
Weekly nutritional screen. Patient is tolerating current heart healthy diet with adequate intake 50-100%. No weight loss reported, noted some weight fluctuations due to lasix. No nutritional recommendations at this time.
--- NOTE | 2024-12-25 10:07 | PM.IMPN ---
Progress Note: A&P Assessment and Plan (1) Acute on chronic congestive heart failure: Code(s): I50.9 - Heart failure, unspecified Status: Acute (2) Severe tricuspid regurgitation: Code(s): I07.1 - Rheumatic tricuspid insufficiency Status: Acute (3) Chronic kidney disease, stage 3: Code(s): N18.30 - Chronic kidney disease, stage 3 unspecified Status: Acute (4) Pancytopenia: Code(s): D61.818 - Other pancytopenia Status: Acute (5) Hypertension: Code(s): I10 - Essential (primary) hypertension Status: Acute (6) Benign prostatic hyperplasia: Code(s): N40.0 - Benign prostatic hyperplasia without lower urinary tract symptoms Status: Acute Plan Acute on chronic heart failure with preserved ejection fraction Severe TR TTE showed EF 50-55%, with severe tricuspid regurge and <50% collapse of IVC on inspiration -continue propranolol Monitor Is and Os and vital signs S/p Lasix infusion, continue Lasix 40mg bid IV Leg edema improving cardiology following atrial fibrillation, CAD, status post Watchman, coronary artery disease status post 3 vessel bypass, severe tricuspid regurgitation with plans recent discussion for transcatheter tricuspid valve replacement per Dr. 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 with Dr Arnav Lovett for TAVR continue above Pancytopenia related to splenomegaly per Hematology stable Hb 8.8, WBC 1.6 and Plts 97 monitor H&H and keep hemoglobin more than 8 continue outpatient follow up CKD 3 A Renal function is stable DVT prophylaxis on Eliquis awaiting cardiology clearance for discharge Subjective Date/time seen: 12/25/24 10:07 Interval history: Patient has a bilateral chronic venous insufficiency wound with epidermal staining and weeping areas present on both legs. Review of Systems Review of Systems: 12 systems were reviewed and are negative except for as per HPI. Exam Narrative: GENERAL: Obesity, in no acute distress. Well-nourished. - EYES: EOMI. Anicteric. - HENT: Moist mucous membranes. - LUNGS: Coarse breath sound bilateral base, no wheezing, rhonchi, or rales. - CARDIOVASCULAR: Regular rate and rhythm. No murmur. No JVD. - ABDOMEN: Soft, non-tender and non-distended. No palpable masses. - EXTREMITIES: Bilateral lower extremities, edema. Peripheral pulses 2+. Non-tender. - NEUROLOGIC: No focal neurological deficits. CN II-XII grossly intact. General weakness - PSYCHIATRIC: Awake, Alert and oriented x 3. Appropriate mood and affect. - SKIN: No rashes or lesions. Warm. - LYMPH: No cervical lymphadenopathy. Objective Data Vital Signs Vital Signs: Vital Signs - 24 hr 12/24/24 16:05 12/24/24 18:56 12/24/24 20:00 Temperature 97.5 F L 98 F Pulse Rate 88 75 Respiratory Rate 20 22 H Blood Pressure 135/54 L 133/60 Pulse Oximetry 97 96 Oxygen Delivery Room Air 12/25/24 05:56 Temperature 98.3 F Pulse Rate 86 Respiratory Rate 18 Blood Pressure 110/59 L Pulse Oximetry 95 Oxygen Delivery Intake/Output Intake/Output: Intake & Output 12/22/24 12/23/24 12/24/24 12/25/24 23:59 23:59 23:59 23:59 Intake Total 1315.1 1334.9 1757.8 100 Output Total 3575 2900 2150 700 Balance -2259.9 -1565.1 -392.2 -600 Meds/Results Medications: Active Medications Generic Name Dose Route Start Last Admin Trade Name Freq PRN Reason Stop Dose Admin Acetaminophen 650 mg 12/18/24 14:49 12/24/24 09:40 Acetaminophen 325 Mg Tablet PO 650 mg Q6H PRN Administration Mild Pain (1-3) or Fever Allopurinol 300 mg 12/19/24 09:00 12/25/24 09:03 Allopurinol 300 Mg Tablet PO 300 mg DAILY TERRENCE Administration Apixaban 5 mg 12/18/24 21:05 12/25/24 09:02 Apixaban 5 Mg Tablet PO 5 mg Q12HR TERRENCE Administration Cyanocobalamin 1,000 mcg 12/19/24 09:00 12/25/24 09:03 Cyanocobalamin 1,000 Mcg Tablet PO 1,000 mcg DAILY TERRENCE Administration Doxazosin Mesylate 8 mg 12/18/24 21:05 12/25/24 09:03 Doxazosin Mesylate 4 Mg Tablet PO 8 mg BID TERRENCE Administration Empagliflozin 10 mg 12/25/24 09:00 12/25/24 09:02 Empagliflozin 10 Mg Tablet PO 10 mg DAILY TERRENCE Administration Ferrous Sulfate 325 mg 12/19/24 09:00 12/25/24 09:03 Ferrous Sulfate [address] PO 325 mg BID TERRENCE Administration Furosemide 40 mg 12/18/24 19:00 12/25/24 09:02 Furosemide Inj 40 Mg/4 Ml Vial IV PUSH 40 mg BID TERRENCE Administration Loratadine 10 mg 12/22/24 07:57 12/25/24 09:03 Loratadine 10 Mg Tablet PO 10 mg QAM PRN Administration itch Losartan Potassium 50 mg 12/19/24 09:00 12/25/24 09:03 Losartan Potassium 50 Mg Tablet PO 50 mg DAILY TERRENCE Administration Oxybutynin Chloride 5 mg 12/19/24 09:00 12/25/24 09:03 Oxybutynin Chloride 5 Mg Tablet PO 5 mg DAILY TERRENCE Administration Propranolol HCl 120 mg 12/19/24 09:00 12/25/24 09:02 Propranolol Hcl 60 Mg Capsule Cr PO 120 mg DAILY TERRENCE Administration Tamsulosin HCl 0.4 mg 12/18/24 21:10 12/25/24 09:03 Tamsulosin Hcl 0.4 Mg Capsule PO 0.4 mg BID TERRENCE Administration Radiology Results: ITS Impressions Chest X-Ray 12/18/24 12:33 Impression: Central congestive change and mild bibasilar pulmonary edema. Cardiomegaly. Labs Labs: Laboratory Results - last 24 hr 12/25/24 04:57 WBC 1.5 L* RBC 3.27 L Hgb 8.9 L Hct 29.1 L MCV 89.0 MCH 27.2 MCHC 30.6 L RDW 17.2 H Plt Count 94 L MPV 10.2 Immature Gran % (Auto) 0.0 Neut % (Auto) 61.0 Lymph % (Auto) 26.0 [place] % (Auto) 9.6 H Eos % (Auto) 3.4 Baso % (Auto) 0.0 L Lymph # (Auto) 0.38 L [place] # (Auto) 0.1 Eos # (Auto) 0.1 Baso # (Auto) 0.0 Abs Immat Gran (auto) 0.00 Absolute Neuts (auto) 0.9 L Absolute Nucleated RBC 0.000 Nucleated RBC % 0.0 % Immature Plt Fraction 1.7 Sodium 138 Potassium 3.4 Chloride 100 Carbon Dioxide 29 Anion Gap 9 BUN 28 H Creatinine 1.51 H Estim Creat Clear Calc 48 Estimated GFR 45 L Glucose 88 Calcium 8.6 Magnesium 2.0 Total Bilirubin 0.6 AST 20 ALT 14 Alkaline Phosphatase 49 Total Protein 7.0 Albumin 3.5 Quality VTE Prophylaxis VTE prophylaxis: pharmacologic ordered (on apixaban) Hospitalist [facility] Advance Care Plan I have confirmed that the patient's Advanced Care Plan is present, code status is documented, or surrogate decision maker is listed in patient medical record.: Yes Medication Reconciliation I have utilized all available resources to obtain, update and review the patients current medications (includes all prescriptions, OTC, herbals, cannabis, and nutritional supplements).: Yes
[2024-12-25 14:00] VITALS: BP 125/58; PULSE 88; RESP 18; TEMP 36.3; O2SAT 100
--- NOTE | 2024-12-25 15:17 | P.PNCA_ITS ---
Progress Note: A&P Assessment and Plan (1) Acute on chronic heart failure with preserved ejection fraction: Code(s): I50.33 - Acute on chronic diastolic (congestive) heart failure Status: Acute (2) Severe tricuspid regurgitation: Code(s): I07.1 - Rheumatic tricuspid insufficiency Status: Acute (3) Atherosclerotic heart disease of [place] coronary artery without angina pectoris: Code(s): I25.10 - Atherosclerotic heart disease of [place] coronary artery without angina pectoris Status: Acute (4) Presence of aortocoronary bypass graft: Onset Date: 2014 Code(s): Z95.1 - Presence of aortocoronary bypass graft Status: Acute (5) Atrial fibrillation: Code(s): I48.91 - Unspecified atrial fibrillation Status: Chronic (6) Hypertension: Code(s): I10 - Essential (primary) hypertension Status: Acute (7) Hyperlipidemia: Code(s): E78.5 - Hyperlipidemia, unspecified Status: Chronic Plan Acute on chronic heart failure with preserved ejection fraction still decompensated Severe TR-undergoing workup for the T[facility] at [facility]. I let Dr. Lovett know about admission. -continue Lasix 40 mg IV b.i.d . Will give metolazone 2.5 mg x 1 today. -continue propranolol and losartan at home dose -monitor weight, ins and outs, and renal function daily -check and replace electrolytes as needed to keep K greater than 4 and Mg greater than 2 -monitor H&H and keep hemoglobin more than 8 -continue other home cardiac medications -continue Jardiance -1500cc fluid restriction -May be ready for discharge within the next 24 - 48 hours with close outpatient follow up and higher home diuretic dose. Subjective Date/time seen: 12/25/24 15:17 Interval history: Cardiology follow up visit Feeling much better. Shortness of breath has resolved. He still has significant lower extremity edema but this has significantly improved as well. 12/25/2024: Continues to do well today. He has noticed urine output slow down some. Swelling continues to improve. Review of Systems Review of Systems: Complete review of systems was performed and negative other than those mentioned HPI All systems reviewed & are unremarkable except as noted in HPI and below Exam Narrative: GENERAL: Obesity, in no acute distress. Well-nourished. - EYES: EOMI. Anicteric. - HENT: Moist mucous membranes. - LUNGS: Clear to auscultation - CARDIOVASCULAR: Regular rate and rhyth m. No murmur. No JVD - ABDOMEN: Soft, non-tender and non-dist ended. No palpable masses. - EXTREMITIES: Bilateral lower extremit ies, edema, wounds. Peripheral pulses 2+. Non-tender. - NEUROLOGIC: No focal neurological defi cits. CN II-XII grossly intact. General weakness - PSYCHIATRIC: Awake, Alert and oriented x 3. Appropriate mood and affect. - SKIN: No rashes or lesions. Warm. - LYMPH: No cervical lymphadenopathy. Objective Data Vital Signs Vital Signs: Vital Signs - 24 hr 12/24/24 16:05 12/24/24 18:56 12/24/24 20:00 Temperature 36.4 C L 36.6 C Pulse Rate 88 75 Respiratory Rate 20 22 H Blood Pressure 135/54 L 133/60 Pulse Oximetry 97 96 Oxygen Delivery Room Air 12/25/24 05:56 12/25/24 08:00 Temperature 36.8 C Pulse Rate 86 86 Respiratory Rate 18 18 Blood Pressure 110/59 L Pulse Oximetry 95 95 Oxygen Delivery Room Air Intake/Output Intake/Output: Intake & Output 12/22/24 12/23/24 12/24/24 12/25/24 23:59 23:59 23:59 23:59 Intake Total 1315.1 1334.9 1757.8 580 Output Total 3575 2900 2150 1100 Balance -2259.9 -1565.1 -392.2 -520 Meds/Results Medications: Active Medications Generic Name Dose Route Start Last Admin Trade Name Everettq PRN Reason Stop Dose Admin Acetaminophen 650 mg 12/18/24 14:49 12/24/24 09:40 Acetaminophen 325 Mg Tablet PO 650 mg Q6H PRN Administration Mild Pain (1-3) or Fever Allopurinol 300 mg 12/19/24 09:00 12/25/24 09:03 Allopurinol 300 Mg Tablet PO 300 mg DAILY TERRENCE Administration Apixaban 5 mg 12/18/24 21:05 12/25/24 09:02 Apixaban 5 Mg Tablet PO 5 mg Q12HR TERRENCE Administration Cyanocobalamin 1,000 mcg 12/19/24 09:00 12/25/24 09:03 Cyanocobalamin 1,000 Mcg Tablet PO 1,000 mcg DAILY TERRENCE Administration Doxazosin Mesylate 8 mg 12/18/24 21:05 12/25/24 09:03 Doxazosin Mesylate 4 Mg Tablet PO 8 mg BID TERRENCE Administration Empagliflozin 10 mg 12/25/24 09:00 12/25/24 09:02 Empagliflozin 10 Mg Tablet PO 10 mg DAILY TERRENCE Administration Ferrous Sulfate 325 mg 12/19/24 09:00 12/25/24 09:03 Ferrous Sulfate [address] PO 325 mg BID TERRENCE Administration Furosemide 40 mg 12/18/24 19:00 12/25/24 09:02 Furosemide Inj 40 Mg/4 Ml Vial IV PUSH 40 mg BID TERRENCE Administration Loratadine 10 mg 12/22/24 07:57 12/25/24 09:03 Loratadine 10 Mg Tablet PO 10 mg QAM PRN Administration itch Losartan Potassium 50 mg 12/19/24 09:00 12/25/24 09:03 Losartan Potassium 50 Mg Tablet PO 50 mg DAILY TERRENCE Administration Metolazone 2.5 mg 12/25/24 15:17 Metolazone 2.5 Mg Tablet PO 12/25/24 15:18 ONCE ONE Oxybutynin Chloride 5 mg 12/19/24 09:00 12/25/24 09:03 Oxybutynin Chloride 5 Mg Tablet PO 5 mg DAILY TERRENCE Administration Propranolol HCl 120 mg 12/19/24 09:00 12/25/24 09:02 Propranolol Hcl 60 Mg Capsule Cr PO 120 mg DAILY TERRENCE Administration Tamsulosin HCl 0.4 mg 12/18/24 21:10 12/25/24 09:03 Tamsulosin Hcl 0.4 Mg Capsule PO 0.4 mg BID TERRENCE Administration Radiology Results: ITS Impressions Chest X-Ray 12/18/24 12:33 Impression: Central congestive change and mild bibasilar pulmonary edema. Cardiomegaly. Labs Labs: Laboratory Results - last 24 hr 12/25/24 04:57 WBC 1.5 L* RBC 3.27 L Hgb 8.9 L Hct 29.1 L MCV 89.0 MCH 27.2 MCHC 30.6 L RDW 17.2 H Plt Count 94 L MPV 10.2 Immature Gran % (Auto) 0.0 Neut % (Auto) 61.0 Lymph % (Auto) 26.0 [place] % (Auto) 9.6 H Eos % (Auto) 3.4 Baso % (Auto) 0.0 L Lymph # (Auto) 0.38 L [place] # (Auto) 0.1 Eos # (Auto) 0.1 Baso # (Auto) 0.0 Abs Immat Gran (auto) 0.00 Absolute Neuts (auto) 0.9 L Absolute Nucleated RBC 0.000 Nucleated RBC % 0.0 % Immature Plt Fraction 1.7 Sodium 138 Potassium 3.4 Chloride 100 Carbon Dioxide 29 Anion Gap 9 BUN 28 H Creatinine 1.51 H Estim Creat Clear Calc 48 Estimated GFR 45 L Glucose 88 Calcium 8.6 Magnesium 2.0 Total Bilirubin 0.6 AST 20 ALT 14 Alkaline Phosphatase 49 Total Protein 7.0 Albumin 3.5 Quality VTE Prophylaxis VTE prophylaxis: pharmacologic ordered (on apixaban)
[2024-12-25] MEDS: metOLazone 2.5 MG TABLET PO (16:38)
[2024-12-25 21:22] VITALS: BP 119/58; PULSE 83; RESP 20; TEMP 36.8; O2SAT 98
[2024-12-26 06:00] VITALS: BP 106/55; PULSE 91; RESP 20; TEMP 37.5; O2SAT 92
[2024-12-26 06:10] VITALS: TEMP 36.7
[2024-12-26 06:39] LABS: Hematocrit 28.7 % (42.0-52.0); Hemoglobin 8.9 g/dL (14.0-18.0); Immature Platelet Fraction Pct 1.5 % (0.9-11.2); Mean Platelet Volume 9.2 fl (7.4-10.4); Platelet Count Result 91 k/mm3 (150-375); Red Cell Distribution Width 17.1 % (11.5-14.5)
[2024-12-26 06:48] LABS: Alanine Aminotransferase 14 U/L (6-50); Albumin Level 3.5 g/dL (3.5-5.1); Alkaline Phosphatase 49 U/L (38-126); Anion Gap 8 mmol/L (4-12); Aspartate Amino Transferase 21 U/L (17-59); Bilirubin,Total 0.7 mg/dL (0.2-1.3); Blood Urea Nitrogen 28 mg/dL (9-20); Calcium 8.7 mg/dL (8.4-10.2); Carbon Dioxide 32 mmol/L (22-30); Chloride 98 mmol/L (98-107); Estimated CRCL calculation 46 ml/min; Estimated Glomerular Filt Rate 44; Glucose 94 mg/dL (65-110); Potassium 3.3 mmol/L (3.4-5.0); Sodium 138 mmol/L (137-145)
[2024-12-26 06:59] LABS: White Blood Count 1.7 K/mm3 (4.5-10.0)
[2024-12-26 08:23] VITALS: PULSE 92
[2024-12-26] MEDS: CYANOCOBALAMIN 1,000 MCG TABLET 1000 MCG PO (08:23)
[2024-12-26] MEDS: DOXAZOSIN MESYLATE 4 MG TABLET 8 MG PO ×2 (08:23→16:32)
[2024-12-26] MEDS: LORATADINE 10 MG TABLET PO (08:23)
[2024-12-26] MEDS: APIXABAN 5 MG TABLET PO ×2 (08:23→20:33)
[2024-12-26] MEDS: PROPRANOLOL HCL 60 MG CAPSULE CR 120 MG PO (08:23)
[2024-12-26] MEDS: FERROUS SULFATE 325 MG TABLET DR PO ×2 (08:24→16:32)
[2024-12-26] MEDS: allopurinoL 300 MG TABLET PO (08:24)
[2024-12-26] MEDS: LOSARTAN POTASSIUM 50 MG TABLET PO (08:24)
[2024-12-26] MEDS: EMPAGLIFLOZIN 10 MG TABLET PO (08:24)
[2024-12-26] MEDS: oxyBUTYnin CHLORIDE 5 MG TABLET PO (08:24)
[2024-12-26] MEDS: FUROSEMIDE INJ 40 MG/4 ML VIAL IV PUSH ×2 (08:24→16:32)
[2024-12-26] MEDS: TAMSULOSIN HCL 0.4 MG CAPSULE PO ×2 (08:24→16:32)
[2024-12-26 08:25] VITALS: O2SAT 95
--- NOTE | 2024-12-26 10:04 | P.PNIM_ITS ---
Progress Note: A&P Assessment and Plan (1) Acute on chronic congestive heart failure: Code(s): I50.9 - Heart failure, unspecified Status: Acute (2) Severe tricuspid regurgitation: Code(s): I07.1 - Rheumatic tricuspid insufficiency Status: Acute (3) Chronic kidney disease, stage 3: Code(s): N18.30 - Chronic kidney disease, stage 3 unspecified Status: Acute (4) Pancytopenia: Code(s): D61.818 - Other pancytopenia Status: Acute (5) Hypertension: Code(s): I10 - Essential (primary) hypertension Status: Acute (6) Benign prostatic hyperplasia: Code(s): N40.0 - Benign prostatic hyperplasia without lower urinary tract symptoms Status: Acute Plan Acute on chronic heart failure with preserved ejection fraction Severe TR TTE showed EF 50-55%, with severe tricuspid regurge and <50% collapse of IVC on inspiration -continue propranolol Monitor Is and Os and vital signs S/p Lasix infusion, continue Lasix 40mg bid IV Leg edema improving cardiology following Atrial fibrillation/CAD status post Watchman, coronary artery disease status post 3 vessel bypass, severe tricuspid regurgitation with plans recent discussion for transcatheter tricuspid valve replacement per Dr. 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 Lovett about current admission Pancytopenia related to splenomegaly per Hematology stable Hb 8.8, WBC 1.6 and Plts 97 monitor H&H and keep hemoglobin more than 8 continue outpatient follow up CKD 3 A Renal function is stable DVT prophylaxis on Eliquis awaiting cardiology clearance for discharge Subjective Date/time seen: 12/26/24 10:04 Interval history: Patient received extra dose of metolazone 2.5 mg yesterday. Continue monitor and possible discharge tomorrow if Cardiology clears. Review of Systems Review of Systems: 12 systems were reviewed and are negativ e except for as per HPI. Exam Narrative: GENERAL: Obesity, in no acute distress. Well-nourished. - EYES: EOMI. Anicteric. - HENT: Moist mucous membranes. - LUNGS: Coarse breath sound bilateral base, no wheezing, rhonchi, or rales. - CARDIOVASCULAR: Regular rate and rhyth m. No murmur. No JVD. - ABDOMEN: Soft, non-tender and non-dist ended. No palpable masses. - EXTREMITIES: Bilateral lower extremit ies, edema. Peripheral pulses 2+. Non- tender. - NEUROLOGIC: No focal neurological defi cits. CN II-XII grossly intact. General weakness - PSYCHIATRIC: Awake, Alert and oriented x 3. Appropriate mood and affect. - SKIN: No rashes or lesions. Warm. - LYMPH: No cervical lymphadenopathy. Objective Data Vital Signs Vital Signs: Vital Signs - 24 hr 12/25/24 14:00 12/25/24 21:03 12/25/24 21:22 Temperature 97.3 F L 98.2 F Pulse Rate 88 83 Respiratory Rate 18 20 Blood Pressure 125/58 L 119/58 L Pulse Oximetry 100 98 Oxygen Delivery Room Air 12/26/24 06:00 12/26/24 06:10 12/26/24 08:23 Temperature 99.5 F 98.1 F Pulse Rate 91 92 Respiratory Rate 20 Blood Pressure 106/55 L Pulse Oximetry 92 Oxygen Delivery 12/26/24 08:25 Temperature Pulse Rate Respiratory Rate Blood Pressure Pulse Oximetry 95 Oxygen Delivery Room Air Intake/Output Intake/Output: Intake & Output 12/23/24 12/24/24 12/25/24 12/26/24 23:59 23:59 23:59 23:59 Intake Total 1334.9 1757.8 1620 540 Output Total 2900 2150 1800 400 Balance -1565.1 -392.2 -180 140 Meds/Results Medications: Active Medications Generic Name Dose Route Start Last Admin Trade Name Freq PRN Reason Stop Dose Admin Acetaminophen 650 mg 12/18/24 14:49 12/24/24 09:40 Acetaminophen 325 Mg Tablet PO 650 mg Q6H PRN Administration Mild Pain (1-3) or Fever Allopurinol 300 mg 12/19/24 09:00 12/26/24 08:24 Allopurinol 300 Mg Tablet PO 300 mg DAILY TERRENCE Administration Apixaban 5 mg 12/18/24 21:05 12/26/24 08:23 Apixaban 5 Mg Tablet PO 5 mg Q12HR TERRENCE Administration Cyanocobalamin 1,000 mcg 12/19/24 09:00 12/26/24 08:23 Cyanocobalamin 1,000 Mcg Tablet PO 1,000 mcg DAILY TERRENCE Administration Doxazosin Mesylate 8 mg 12/18/24 21:05 12/26/24 08:23 Doxazosin Mesylate 4 Mg Tablet PO 8 mg BID TERRENCE Administration Empagliflozin 10 mg 12/25/24 09:00 12/26/24 08:24 Empagliflozin 10 Mg Tablet PO 10 mg DAILY TERRENCE Administration Ferrous Sulfate 325 mg 12/19/24 09:00 12/26/24 08:24 Ferrous Sulfate [address] PO 325 mg BID TERRENCE Administration Furosemide 40 mg 12/18/24 19:00 12/26/24 08:24 Furosemide Inj 40 Mg/4 Ml Vial IV PUSH 40 mg BID TERRENCE Administration Loratadine 10 mg 12/22/24 07:57 12/26/24 08:23 Loratadine 10 Mg Tablet PO 10 mg QAM PRN Administration itch Losartan Potassium 50 mg 12/19/24 09:00 12/26/24 08:24 Losartan Potassium 50 Mg Tablet PO 50 mg DAILY TERRENCE Administration Oxybutynin Chloride 5 mg 12/19/24 09:00 12/26/24 08:24 Oxybutynin Chloride 5 Mg Tablet PO 5 mg DAILY TERRENCE Administration Propranolol HCl 120 mg 12/19/24 09:00 12/26/24 08:23 Propranolol Hcl 60 Mg Capsule Cr PO 120 mg DAILY TERRENCE Administration Tamsulosin HCl 0.4 mg 12/18/24 21:10 12/26/24 08:24 Tamsulosin Hcl 0.4 Mg Capsule PO 0.4 mg BID TERRENCE Administration Radiology Results: ITS Impressions Chest X-Ray 12/18/24 12:33 Impression: Central congestive change and mild bibasilar pulmonary edema. Cardiomegaly. Labs Labs: Laboratory Results - last 24 hr 12/26/24 06:27 WBC 1.7 L* RBC 3.30 L Hgb 8.9 L Hct 28.7 L MCV 87.0 MCH 27.0 MCHC 31.0 L RDW 17.1 H Plt Count 91 L MPV 9.2 % Immature Plt Fraction 1.5 Sodium 138 Potassium 3.3 L Chloride 98 Carbon Dioxide 32 H Anion Gap 8 BUN 28 H Creatinine 1.56 H Estim Creat Clear Calc 46 Estimated GFR 44 L Glucose 94 Calcium 8.7 Total Bilirubin 0.7 AST 21 ALT 14 Alkaline Phosphatase 49 Total Protein 7.0 Albumin 3.5 Quality VTE Prophylaxis VTE prophylaxis: pharmacologic ordered (on apixaban) Hospitalist [facility] Advance Care Plan I have confirmed that the patient's Advanced Care Plan is present, code status is documented, or surrogate decision maker is listed in patient medical record.: Yes Medication Reconciliation I have utilized all available resources to obtain, update and review the patients current medications (includes all prescriptions, OTC, herbals, cannabis, and nutritional supplements).: Yes
[2024-12-26] MEDS: POTASSIUM CHLORIDE 20 MEQ PACKET (FOR LIQUID) 40 MEQ PO (10:50)
--- NOTE | 2024-12-26 11:01 | PM.PNCARD ---
Progress Note: A&P Assessment and Plan (1) Acute on chronic heart failure with preserved ejection fraction: Code(s): I50.33 - Acute on chronic diastolic (congestive) heart failure Status: Acute (2) Severe tricuspid regurgitation: Code(s): I07.1 - Rheumatic tricuspid insufficiency Status: Acute (3) Atherosclerotic heart disease of [place] coronary artery without angina pectoris: Code(s): I25.10 - Atherosclerotic heart disease of [place] coronary artery without angina pectoris Status: Acute (4) Presence of aortocoronary bypass graft: Onset Date: 2014 Code(s): Z95.1 - Presence of aortocoronary bypass graft Status: Acute (5) Atrial fibrillation: Code(s): I48.91 - Unspecified atrial fibrillation Status: Chronic (6) Hypertension: Code(s): I10 - Essential (primary) hypertension Status: Acute (7) Hyperlipidemia: Code(s): E78.5 - Hyperlipidemia, unspecified Status: Chronic Plan Acute on chronic heart failure with preserved ejection fraction Severe TR - undergoing workup for the TTVR at [facility]. -Continue Lasix 40 mg IV BID. Will give Metolazone 5mg once today. -continue propranolol and losartan at home dose -monitor weight, ins and outs, and renal function daily -check and replace electrolytes as needed to keep K greater than 4 and Mg greater than 2 -monitor H&H and keep hemoglobin more than 8 -continue other home cardiac medications -continue Jardiance -1500cc fluid restriction -Anticipate discharge home tomorrow with close outpatient follow up and higher home diuretic dose. Subjective Date/time seen: 12/26/24 11:01 Interval history: Cardiology follow up visit for CHF Feeling much better. Shortness of breath has resolved. He still has significant lower extremity edema but this has significantly improved as well. 12/25/2024: Continues to do well today. He has noticed urine output slow down some. Swelling continues to improve. 12/26: Legs remain edematous, however, swelling has significantly improved per patient. Review of Systems Cardiovascular: Cardiovascular: Reports as per HPI Exam Const: General: comfortable and no acute distress Eyes: General: appearance normal, both eyes and all related structures Sclera: sclerae normal Resp: Effort & Inspection: normal respiratory effort Cardio: Rate: regular rate Rhythm: regular rhythm Other: + Bilateral lower extremity edema Neuro: Speech: normal speech Psych: Mental Status: mental status grossly normal Affect: normal affect Objective Data Vital Signs Vital Signs: Vital Signs - 24 hr 12/25/24 14:00 12/25/24 21:03 12/25/24 21:22 Temperature 36.3 C L 36.8 C Pulse Rate 88 83 Respiratory Rate 18 20 Blood Pressure 125/58 L 119/58 L Pulse Oximetry 100 98 Oxygen Delivery Room Air 12/26/24 06:00 12/26/24 06:10 12/26/24 08:23 Temperature 37.5 C 36.7 C Pulse Rate 91 92 Respiratory Rate 20 Blood Pressure 106/55 L Pulse Oximetry 92 Oxygen Delivery 12/26/24 08:25 Temperature Pulse Rate Respiratory Rate Blood Pressure Pulse Oximetry 95 Oxygen Delivery Room Air Intake/Output Intake/Output: Intake & Output 12/23/24 12/24/24 12/25/24 12/26/24 23:59 23:59 23:59 23:59 Intake Total 1334.9 1757.8 1620 540 Output Total 2900 2150 1800 400 Balance -1565.1 -392.2 -180 140 Meds/Results Medications: Active Medications Generic Name Dose Route Start Last Admin Trade Name Freq PRN Reason Stop Dose Admin Acetaminophen 650 mg 12/18/24 14:49 12/24/24 09:40 Acetaminophen 325 Mg Tablet PO 650 mg Q6H PRN Administration Mild Pain (1-3) or Fever Allopurinol 300 mg 12/19/24 09:00 12/26/24 08:24 Allopurinol 300 Mg Tablet PO 300 mg DAILY TERRENCE Administration Apixaban 5 mg 12/18/24 21:05 12/26/24 08:23 Apixaban 5 Mg Tablet PO 5 mg Q12HR TERRENCE Administration Cyanocobalamin 1,000 mcg 12/19/24 09:00 12/26/24 08:23 Cyanocobalamin 1,000 Mcg Tablet PO 1,000 mcg DAILY TERRENCE Administration Doxazosin Mesylate 8 mg 12/18/24 21:05 12/26/24 08:23 Doxazosin Mesylate 4 Mg Tablet PO 8 mg BID TERRENCE Administration Empagliflozin 10 mg 12/25/24 09:00 12/26/24 08:24 Empagliflozin 10 Mg Tablet PO 10 mg DAILY TERRENCE Administration Ferrous Sulfate 325 mg 12/19/24 09:00 12/26/24 08:24 Ferrous Sulfate [address] PO 325 mg BID TERRENCE Administration Furosemide 40 mg 12/18/24 19:00 12/26/24 08:24 Furosemide Inj 40 Mg/4 Ml Vial IV PUSH 40 mg BID TERRENCE Administration Loratadine 10 mg 12/22/24 07:57 12/26/24 08:23 Loratadine 10 Mg Tablet PO 10 mg QAM PRN Administration itch Losartan Potassium 50 mg 12/19/24 09:00 12/26/24 08:24 Losartan Potassium 50 Mg Tablet PO 50 mg DAILY TERRENCE Administration Oxybutynin Chloride 5 mg 12/19/24 09:00 12/26/24 08:24 Oxybutynin Chloride 5 Mg Tablet PO 5 mg DAILY TERRENCE Administration Propranolol HCl 120 mg 12/19/24 09:00 12/26/24 08:23 Propranolol Hcl 60 Mg Capsule Cr PO 120 mg DAILY TERRENCE Administration Tamsulosin HCl 0.4 mg 12/18/24 21:10 12/26/24 08:24 Tamsulosin Hcl 0.4 Mg Capsule PO 0.4 mg BID TERRENCE Administration Radiology Results: ITS Impressions Chest X-Ray 12/18/24 12:33 Impression: Central congestive change and mild bibasilar pulmonary edema. Cardiomegaly. Labs Labs: Laboratory Results - last 24 hr 12/26/24 06:27 WBC 1.7 L* RBC 3.30 L Hgb 8.9 L Hct 28.7 L MCV 87.0 MCH 27.0 MCHC 31.0 L RDW 17.1 H Plt Count 91 L MPV 9.2 % Immature Plt Fraction 1.5 Sodium 138 Potassium 3.3 L Chloride 98 Carbon Dioxide 32 H Anion Gap 8 BUN 28 H Creatinine 1.56 H Estim Creat Clear Calc 46 Estimated GFR 44 L Glucose 94 Calcium 8.7 Total Bilirubin 0.7 AST 21 ALT 14 Alkaline Phosphatase 49 Total Protein 7.0 Albumin 3.5
[2024-12-26] MEDS: metOLazone 5 MG TABLET PO (11:19)
[2024-12-26 14:00] VITALS: BP 104/62; PULSE 77; RESP 18; TEMP 37; O2SAT 99
[2024-12-26] MEDS: ACETAMINOPHEN 325 MG TABLET 650 MG PO (16:46)
[2024-12-26] MEDS: hydrOXYzine HCL 10 MG TABLET PO (21:03)
[2024-12-26 22:00] VITALS: BP 102/57; PULSE 93; RESP 16; O2SAT 96
[2024-12-27 06:00] VITALS: BP 117/50; PULSE 75; RESP 16; TEMP 36.8; O2SAT 98
[2024-12-27 06:40] LABS: Hematocrit 30.7 % (42.0-52.0); Hemoglobin 9.3 g/dL (14.0-18.0); Mean Corpuscular HGB Conc 30.3 g/dl (32-36); Mean Corpuscular Hemoglobin 26.6 pg (26-34); Mean Platelet Volume 9.5 fl (7.4-10.4); Platelet Count Result 80 k/mm3 (150-375); Red Blood Count 3.49 M/mm3 (4.6-6.20); Red Cell Distribution Width 17.2 % (11.5-14.5)
[2024-12-27 06:45] LABS: White Blood Count 1.7 K/mm3 (4.5-10.0)
[2024-12-27 06:55] LABS: Alanine Aminotransferase 15 U/L (6-50); Albumin Level 3.7 g/dL (3.5-5.1); Alkaline Phosphatase 52 U/L (38-126); Anion Gap 9 mmol/L (4-12); Aspartate Amino Transferase 25 U/L (17-59); Bilirubin,Total 0.8 mg/dL (0.2-1.3); Blood Urea Nitrogen 30 mg/dL (9-20); Calcium 8.8 mg/dL (8.4-10.2); Carbon Dioxide 31 mmol/L (22-30); Chloride 96 mmol/L (98-107); Estimated CRCL calculation 40 ml/min; Estimated Glomerular Filt Rate 39; Glucose 92 mg/dL (65-110); Potassium 3.6 mmol/L (3.4-5.0); Sodium 136 mmol/L (137-145)
[2024-12-27 08:49] VITALS: PULSE 75
[2024-12-27] MEDS: DOXAZOSIN MESYLATE 4 MG TABLET 8 MG PO ×2 (08:49→16:40)
[2024-12-27] MEDS: LOSARTAN POTASSIUM 50 MG TABLET PO (08:49)
[2024-12-27] MEDS: FERROUS SULFATE 325 MG TABLET DR PO ×2 (08:49→16:40)
[2024-12-27] MEDS: PROPRANOLOL HCL 60 MG CAPSULE CR 120 MG PO (08:49)
[2024-12-27] MEDS: EMPAGLIFLOZIN 10 MG TABLET PO (08:50)
[2024-12-27] MEDS: LORATADINE 10 MG TABLET PO (08:50)
[2024-12-27] MEDS: TAMSULOSIN HCL 0.4 MG CAPSULE PO ×2 (08:50→16:40)
[2024-12-27] MEDS: allopurinoL 300 MG TABLET PO (08:50)
[2024-12-27] MEDS: FUROSEMIDE INJ 40 MG/4 ML VIAL IV PUSH (08:50)
[2024-12-27] MEDS: CYANOCOBALAMIN 1,000 MCG TABLET 1000 MCG PO (08:50)
[2024-12-27] MEDS: APIXABAN 5 MG TABLET PO (08:50)
[2024-12-27] MEDS: oxyBUTYnin CHLORIDE 5 MG TABLET PO (08:50)
--- NOTE | 2024-12-27 10:08 | P.DS_ITS ---
DS: Admitting Diagnosis Discharge Date 0 12/27/2024 Admitting Diagnosis Leg swelling and shortness of breath DS: Summary Hospital Course Hospital Course: 74-year-old male with history of heart failure with preserved ejection fraction, persistent atrial fibrillation status post Watchman, coronary artery disease status post 3 vessel bypass, severe tricuspid regurgitation with plans recent discussion for transcatheter tricuspid valve replacement per Dr. Arnav Lovett, pulmonary hypertension, hypertension, chronic kidney disease, iron deficiency anemia, pancytopenia secondary to splenomegaly, and benign prostatic hyperplasia who presented to the emergency department with complaints of shortness of breath and lower extremity swelling. The last 6 weeks he has noticed an increase in lower extremity edema which has become much worse over the past 2 weeks. He now appreciates an increase in abdominal girth and he is becoming more short of breath with exertion. He also reports mild orthopnea and decrease in appetite. He denies fever, cold and flu symptoms, chest and pleuritic pain, palpitations, nausea, vomiting, diarrhea, dysuria, and calf pain. I assumed Care on 12/25: Patient has been treated for the following condition in the hospital Acute on chronic heart failure with preserved ejection fraction Severe TR TTE showed EF 50-55%, with severe tricuspid regurge and <50% collapse of IVC on inspiration -continue propranolol Monitor Is and Os and vital signs S/p Lasix infusion Continue Lasix 40 mg p.o. b.i.d. Leg edema improving cardiology following Atrial fibrillation/CAD status post Watchman, coronary artery disease status post 3 vessel bypass, severe tricuspid regurgitation with plans recent discussion for transcatheter tricuspid valve replacement per Dr. Arnav Lovett, pt is on Eliquis management per surveillance specialist Severe tricuspid regurgitation Patient has follow up at [facility] with Dr Arnav Lovett for TAVR Cardiology will notify Dr. Lovett about current admission Pancytopenia related to splenomegaly per Hematology stable Hb 8.8, WBC 1.6 and Plts 97 monitor H&H and keep hemoglobin more than 8 continue outpatient follow up CKD 3 A Renal function is stable Venous stasis ulcer Patient has a bilateral chronic venous insufficiency wound with epidermal staining and weeping areas present on both legs. Continue wound care Status at Discharge Cognitive/behavioral status at discharge: Stable Time Spent with Patient Time attestation: Total time spent providing and/or coordinating discharge services: 45 minute Exam Narrative: GENERAL: Obesity, in no acute distress. Well-nourished. - EYES: EOMI. Anicteric. - HENT: Moist mucous membranes. - LUNGS: Coarse breath sound bilateral base, no wheezing, rhonchi, or rales. - CARDIOVASCULAR: Regular rate and rhyth m. No murmur. No JVD. - ABDOMEN: Soft, non-tender and non-dist ended. No palpable masses. - EXTREMITIES: Bilateral lower extremit ies, edema. Peripheral pulses 2+. Non- tender. - NEUROLOGIC: No focal neurological defi cits. CN II-XII grossly intact. General weakness - PSYCHIATRIC: Awake, Alert and oriented x 3. Appropriate mood and affect. - SKIN: No rashes or lesions. Warm. - LYMPH: No cervical lymphadenopathy. DS: Data Data Completed and Pending Labs on day of discharge: Labs from last 24 hours 12/27/24 06:30 WBC 1.7 L* RBC 3.49 L Hgb 9.3 L Hct 30.7 L MCV 88.0 MCH 26.6 MCHC 30.3 L RDW 17.2 H Plt Count 80 L MPV 9.5 Sodium 136 L Potassium 3.6 Chloride 96 L Carbon Dioxide 31 H Anion Gap 9 BUN 30 H Creatinine 1.73 H Estim Creat Clear Calc 40 Estimated GFR 39 L Glucose 92 Calcium 8.8 Total Bilirubin 0.8 AST 25 ALT 15 Alkaline Phosphatase 52 Total Protein 7.0 Albumin 3.7 Imaging Radiologist's impression: ITS Impressions Chest X-Ray 12/18/24 12:33 Impression: Central congestive change and mild bibasilar pulmonary edema. Cardiomegaly. Discharge Plan Discharge Attending physician on discharge: Raphael Means Consulting providers: Hyun Faria Discharging Clinician: Raphael Means Patient Disposition: Home Activity: as tolerated Diet: other - see discharge instructions Discharge Instructions: Fluid restriction diet, heart healthy diet. Please follow-up with wound care Check blood pressure 1 to 2 times a day. Record and bring into your doctor for review. Call your doctor if your blood pressure is greater than 180/110 or less than 90/45. Walk with cane or other assist device. Take precautions to avoid falls. Rise slowly from a lying or sitting position. Pause before standing or walking. Contact your doctor or call 911 and come to the Emergency Room if you have any type of trauma, lightheadedness with standing or other worrisome symptoms. Avoid NSAIDs (ibuprofen, naproxen, Aleve). Tylenol is safe to take. Follow-up with your primary care provider in 1-2 weeks. Please call for appointment. Follow-up with Cardiology in 2-4 weeks. Please call for an appointment. Thank you for using [facility] for your health care needs. Patient Instructions: Antibiotic Form Patient Language: Belgian Stand Alone Forms: General Discharge Information Follow-up/Referrals: Liliana Bynum APN-C [Advanced Practice Nurse] - Call for Appointment Leon Taylor MD [Primary Care Provider] - Discharge Medications: New Jardiance 10 mg Tablet 10 mg PO DAILY Qty: 30 0RF Continued mecobalamin (vitamin B12) 1,000 mcg tablet,chewable 1,000 mcg PO DAILY allopurinol 300 mg tablet 300 mg PO DAILY Qty: 90 3RF losartan 50 mg tablet 50 mg PO DAILY Qty: 90 1RF doxazosin 8 mg tablet 8 mg PO BID Qty: 180 3RF tamsulosin 0.4 mg capsule 0.4 mg PO BID Qty: 180 3RF propranolol 120 mg capsule,extended release 24hr 120 mg PO DAILY Qty: 90 3RF ferrous sulfate 325 mg (65 mg iron) tablet 325 mg PO BID Qty: 180 1RF Eliquis 5 mg tablet 5 mg PO BID Qty: 180 1RF furosemide 40 mg tablet See Rx Instructions .ROUTE .COMPLEX Qty: 180 3RF Dose Instruction: TAKE 1 TABLET BY MOUTH TWICE A DAY Rx Instructions: TAKE 1 TABLET BY MOUTH TWICE A DAY hydroxyzine HCl 10 mg tablet 10 mg PO QID PRN (Reason: itching) Qty: 60 2RF oxybutynin chloride 5 mg tablet 5 mg PO DAILY Qty: 90 3RF Date of admission: 12/18/24 13:26 Primary Care Provider: Leon Taylor Admitting Provider: Davin Castaneda Attending physician on admission: Davin Castaneda Condition: Stable
--- NOTE | 2024-12-27 10:29 | PM.PNCARD ---
Progress Note: A&P Assessment and Plan (1) Heart failure with preserved ejection fraction: Code(s): I50.30 - Unspecified diastolic (congestive) heart failure Status: Acute (2) Severe tricuspid regurgitation: Code(s): I07.1 - Rheumatic tricuspid insufficiency Status: Acute (3) Atrial fibrillation: Code(s): I48.91 - Unspecified atrial fibrillation Status: Chronic Plan Acute on chronic diastolic heart failure -can transition to Lasix 40 mg p.o. b.i.d. to which he can be discharged home on Severe tricuspid regurgitation -outpatient follow-up for to TTVR Persistent atrial fibrillation -Eliquis 5 mg p.o. b.i.d. -can continue propranolol No further inpatient cardiac workup warranted at this time. Subjective Date/time seen: 12/27/24 10:29 Interval history: He is feeling well today without any chest pain or shortness of breath. He feels that his lower extremity swelling has significantly improved Review of Systems Cardiovascular: Cardiovascular: Reports as per HPI Respiratory: Respiratory: Reports as per HPI Exam Const: General: comfortable HENMT: Mouth: Yes moist mucous membranes Eyes: EOM: EOMs intact bilaterally Neck: Neck: no JVD Resp: Effort & Inspection: normal respiratory effort Auscultation: rales Cardio: Rate: regular rate GI: GI Palp: Yes Soft to palpation Extrem: General: pedal edema Other: There is minimal pedal edema bilaterally right greater than left. Right foot has chronic wounds likely from chronic swelling Objective Data Vital Signs Vital Signs: Vital Signs - 24 hr 12/26/24 14:00 12/26/24 20:00 12/26/24 22:00 Temperature 37.0 C Pulse Rate 77 93 Respiratory Rate 18 16 Blood Pressure 104/62 102/57 L Pulse Oximetry 99 96 Oxygen Delivery Room Air 12/27/24 06:00 12/27/24 08:49 12/27/24 08:56 Temperature 36.8 C Pulse Rate 75 75 Respiratory Rate 16 Blood Pressure 117/50 L Pulse Oximetry 98 Oxygen Delivery Room Air Intake/Output Intake/Output: Intake & Output 12/24/24 12/25/24 12/26/24 12/27/24 23:59 23:59 23:59 23:59 Intake Total 1757.8 1620 1610 237 Output Total 2150 1800 2550 600 Balance -392.2 -180 -940 -363 Meds/Results Medications: Active Medications Generic Name Dose Route Start Last Admin Trade Name Everettq PRN Reason Stop Dose Admin Acetaminophen 650 mg 12/18/24 14:49 12/26/24 16:46 Acetaminophen 325 Mg Tablet PO 650 mg Q6H PRN Administration Mild Pain (1-3) or Fever Allopurinol 300 mg 12/19/24 09:00 12/27/24 08:50 Allopurinol 300 Mg Tablet PO 300 mg DAILY TERRENCE Administration Apixaban 5 mg 12/18/24 21:05 12/27/24 08:50 Apixaban 5 Mg Tablet PO 5 mg Q12HR TERRENCE Administration Cyanocobalamin 1,000 mcg 12/19/24 09:00 12/27/24 08:50 Cyanocobalamin 1,000 Mcg Tablet PO 1,000 mcg DAILY TERRENCE Administration Doxazosin Mesylate 8 mg 12/18/24 21:05 12/27/24 08:49 Doxazosin Mesylate 4 Mg Tablet PO 8 mg BID TERRENCE Administration Empagliflozin 10 mg 12/25/24 09:00 12/27/24 08:50 Empagliflozin 10 Mg Tablet PO 10 mg DAILY TERRENCE Administration Ferrous Sulfate 325 mg 12/19/24 09:00 12/27/24 08:49 Ferrous Sulfate [address] PO 325 mg BID TERRENCE Administration Furosemide 40 mg 12/27/24 17:00 Furosemide 40 Mg Tablet PO BID TERRENCE Loratadine 10 mg 12/22/24 07:57 12/27/24 08:50 Loratadine 10 Mg Tablet PO 10 mg QAM PRN Administration itch Losartan Potassium 50 mg 12/19/24 09:00 12/27/24 08:49 Losartan Potassium 50 Mg Tablet PO 50 mg DAILY TERRENCE Administration Oxybutynin Chloride 5 mg 12/19/24 09:00 12/27/24 08:50 Oxybutynin Chloride 5 Mg Tablet PO 5 mg DAILY TERRENCE Administration Propranolol HCl 120 mg 12/19/24 09:00 12/27/24 08:49 Propranolol Hcl 60 Mg Capsule Cr PO 120 mg DAILY TERRENCE Administration Tamsulosin HCl 0.4 mg 12/18/24 21:10 12/27/24 08:50 Tamsulosin Hcl 0.4 Mg Capsule PO 0.4 mg BID TERRENCE Administration Radiology Results: ITS Impressions Chest X-Ray 12/18/24 12:33 Impression: Central congestive change and mild bibasilar pulmonary edema. Cardiomegaly. Labs Labs: Laboratory Results - last 24 hr 12/27/24 06:30 WBC 1.7 L* RBC 3.49 L Hgb 9.3 L Hct 30.7 L MCV 88.0 MCH 26.6 MCHC 30.3 L RDW 17.2 H Plt Count 80 L MPV 9.5 Sodium 136 L Potassium 3.6 Chloride 96 L Carbon Dioxide 31 H Anion Gap 9 BUN 30 H Creatinine 1.73 H Estim Creat Clear Calc 40 Estimated GFR 39 L Glucose 92 Calcium 8.8 Total Bilirubin 0.8 AST 25 ALT 15 Alkaline Phosphatase 52 Total Protein 7.0 Albumin 3.7
[2024-12-27 14:00] VITALS: BP 122/58; PULSE 83; RESP 16; TEMP 36.3; O2SAT 98
[2024-12-27] MEDS: FUROSEMIDE 40 MG TABLET PO (16:40)
--- NOTE | 2024-12-29 09:27 | P.DS_ITS ---
DS: Admitting Diagnosis Discharge Date 12/27/24 Admitting Diagnosis Leg swelling and shortness of breath DS: Discharge Diagnosis Discharge Diagnosis (1) Acute on chronic congestive heart failure: Code(s): I50.9 - Heart failure, unspecified Status: Acute (2) Severe tricuspid regurgitation: Code(s): I07.1 - Rheumatic tricuspid insufficiency Status: Acute (3) Chronic kidney disease, stage 3: Code(s): N18.30 - Chronic kidney disease, stage 3 unspecified Status: Acute (4) Pancytopenia: Code(s): D61.818 - Other pancytopenia Status: Acute (5) Hypertension: Code(s): I10 - Essential (primary) hypertension Status: Acute (6) Benign prostatic hyperplasia: Code(s): N40.0 - Benign prostatic hyperplasia without lower urinary tract symptoms Status: Acute Plan Acute on chronic heart failure with preserved ejection fraction Severe TR TTE showed EF 50-55%, with severe tricuspid regurge and <50% collapse of IVC on inspiration -continue propranolol Monitor Is and Os and vital signs S/p Lasix infusion, continue Lasix 40mg bid IV Leg edema improving cardiology following Atrial fibrillation/CAD status post Watchman, coronary artery disease status post 3 vessel bypass, severe tricuspid regurgitation with plans recent discussion for transcatheter tricuspid valve replacement per Dr. Arnav Lovett, pt is on Eliquis management per day camp counselor Severe tricuspid regurgitation Patient has follow up at [facility] with Dr Arnav Lovett for TAVR Cardiology will notify Dr. Lovett about current admission Pancytopenia related to splenomegaly per Hematology stable Hb 8.8, WBC 1.6 and Plts 97 monitor H&H and keep hemoglobin more than 8 continue outpatient follow up CKD 3 A Renal function is stable DVT prophylaxis on Eliquis awaiting cardiology clearance for discharge DS: Summary Hospital Course Hospital Course: 74-year-old male with history of heart failure with preserved ejection fraction, persistent atrial fibrillation status post Watchman, coronary artery disease status post 3 vessel bypass, severe tricuspid regurgitation with plans recent discussion for transcatheter tricuspid valve replacement per Dr. Arnav Lovett, pulmonary hypertension, hypertension, chronic kidney disease, iron deficiency anemia, pancytopenia secondary to splenomegaly, and benign prostatic hyperplasia who presented to the emergency department with complaints of shortness of breath and lower extremity swelling. The last 6 weeks he has noticed an increase in low er extremity edema which has become much worse over the past 2 weeks. He now appreciates an increase in abdominal girth and he is becoming more short of breath with exertion. He also reports mild orthopnea and decrease in appetite. He denies fever, cold and flu symptoms, chest and pleuritic pain, palpitations, nausea, vomiting, diarrhea, dysuria, and calf pain. I assumed Care on 12/25: Patient has been treated for the following condition in the hospital Acute on chronic heart failure with preserved ejection fraction Severe TR TTE showed EF 50-55%, with severe tricuspid regurge and <50% collapse of IVC on inspiration -continue propranolol Monitor Is and Os and vital signs S/p Lasix infusion Continue Lasix 40 mg p.o. b.i.d. Leg edema improving cardiology following Atrial fibrillation/CAD status post Watchman, coronary artery disease status post 3 vessel bypass, severe tricuspid regurgitation with plans recent discussion for transcatheter tricuspid valve replacement per Dr. Arnav Lovett, pt is on Eliquis management per day camp counselor Severe tricuspid regurgitation Patient has follow up at [facility] with Dr Arnav Lovett for TAVR Cardiology will notify Dr. Lovett about current admission Pancytopenia related to splenomegaly per Hematology stable Hb 8.8, WBC 1.6 and Plts 97 monitor H&H and keep hemoglobin more than 8 continue outpatient follow up CKD 3 A Renal function is stable Venous stasis ulcer Patient has a bilateral chronic venous insufficiency wound with epidermal staining and weeping areas present on both legs. Continue wound care Status at Discharge Cognitive/behavioral status at discharge: Stable Status at Discharge Cognitive/behavioral status at discharge: Stable Time Spent with Patient Time attestation: Total time spent providing and/or coordinating discharge services:45 minutes Exam Narrative: GENERAL: Obesity, in no acute distress. Well-nourished. - EYES: EOMI. Anicteric. - HENT: Moist mucous membranes. - LUNGS: Coarse breath sound bilateral base, no wheezing, rhonchi, or rales. - CARDIOVASCULAR: Regular rate and rhyth m. No murmur. No JVD. - ABDOMEN: Soft, non-tender and non-dist ended. No palpable masses. - EXTREMITIES: Bilateral lower extremit ies, edema. Peripheral pulses 2+. Non- tender. - NEUROLOGIC: No focal neurological defi cits. CN II-XII grossly intact. General weakness - PSYCHIATRIC: Awake, Alert and oriented x 3. Appropriate mood and affect. - SKIN: No rashes or lesions. Warm. - LYMPH: No cervical lymphadenopathy. Discharge Plan Discharge Attending physician on discharge: Raphael Means Consulting providers: Hyun Faria; Gentry Durand; Nataliia Chou; Marin Green; Castillo Slade; Ta Pitts; Liliana Bynum; Marly Benedict; Navid Azul Discharging Clinician: Raphael Means Patient Disposition: Home Activity: as tolerated Diet: other - see discharge instructions Discharge Instructions: Fluid restriction diet, heart healthy diet. Please follow-up with wound care Check blood pressure 1 to 2 times a day. Record and bring into your doctor for review. Call your doctor if your blood pressure is greater than 180/110 or less than 90/45. Walk with cane or other assist device. Take precautions to avoid falls. Rise slowly from a lying or sitting position. Pause before standing or walking. Contact your doctor or call 911 and come to the Emergency Room if you have any type of trauma, lightheadedness with standing or other worrisome symptoms. Avoid NSAIDs (ibuprofen, naproxen, Aleve). Tylenol is safe to take. Follow-up with your primary care provider in 1-2 weeks. Please call for appointment. Follow-up with Cardiology in 2-4 weeks. Please call for an appointment. Thank you for using [facility] for your health care needs. Patient Instructions: Antibiotic Form Patient Language: Occitan Stand Alone Forms: General Discharge Information Follow-up/Referrals: Liliana Bynum APN-C [Advanced Practice Nurse] - Call for Appointment Leon Taylor MD [Primary Care Provider] - Discharge Medications: New Jardiance 10 mg Tablet 10 mg PO DAILY Qty: 30 0RF Continued mecobalamin (vitamin B12) 1,000 mcg tablet,chewable 1,000 mcg PO DAILY allopurinol 300 mg tablet 300 mg PO DAILY Qty: 90 3RF losartan 50 mg tablet 50 mg PO DAILY Qty: 90 1RF doxazosin 8 mg tablet 8 mg PO BID Qty: 180 3RF tamsulosin 0.4 mg capsule 0.4 mg PO BID Qty: 180 3RF propranolol 120 mg capsule,extended release 24hr 120 mg PO DAILY Qty: 90 3RF ferrous sulfate 325 mg (65 mg iron) tablet 325 mg PO BID Qty: 180 1RF Eliquis 5 mg tablet 5 mg PO BID Qty: 180 1RF furosemide 40 mg tablet See Rx Instructions .ROUTE .COMPLEX Qty: 180 3RF Dose Instruction: TAKE 1 TABLET BY MOUTH TWICE A DAY Rx Instructions: TAKE 1 TABLET BY MOUTH TWICE A DAY hydroxyzine HCl 10 mg tablet 10 mg PO QID PRN (Reason: itching) Qty: 60 2RF oxybutynin chloride 5 mg tablet 5 mg PO DAILY Qty: 90 3RF Date of admission: 12/18/24 13:26 Primary Care Provider: Leon Taylor Admitting Provider: Davin Castaneda Attending physician on admission: Raphael Means Condition: Stable Quality VTE Prophylaxis VTE prophylaxis: pharmacologic ordered (on apixaban)
== END 2024-12-27 17:10 | disposition home or self-care (01) | DRG 291 ==
LOC: ANHED 12:10 → ANH3MEDSUR 15:02 → ANHIMU 12-20 16:54 → ANH3MEDSUR 12-24 21:39
PROVIDERS: Emergency Medicine; Physician Assistant; Admitting Provider Internal Medicine; Emergency Provider Emergency Medicine; PCP Family Medicine Adolescent Medicine; Visit Provider General Practice
DX: I13.0 Hypertensive heart and chronic kidney disease with heart failure and stage 1 through stage 4 chronic kidney disease, or unspecified chronic kidney disease (principal); I50.33 Acute on chronic diastolic (congestive) heart failure; D61.818 Other pancytopenia; I48.19 Other persistent atrial fibrillation; I83.018 Varicose veins of right lower extremity with ulcer other part of lower leg; I83.028 Varicose veins of left lower extremity with ulcer other part of lower leg; N18.31 Chronic kidney disease, stage 3a; M19.90 Unspecified osteoarthritis, unspecified site; K21.9 Gastro-esophageal reflux disease without esophagitis; N40.0 Benign prostatic hyperplasia without lower urinary tract symptoms; E78.5 Hyperlipidemia, unspecified; I25.10 Atherosclerotic heart disease of native coronary artery without angina pectoris; R16.1 Splenomegaly, not elsewhere classified; I07.1 Rheumatic tricuspid insufficiency; D50.9 Iron deficiency anemia, unspecified; Z90.49 Acquired absence of other specified parts of digestive tract; Z96.653 Presence of artificial knee joint, bilateral; Z95.1 Presence of aortocoronary bypass graft; Z96.1 Presence of intraocular lens; Z98.42 Cataract extraction status, left eye; Z98.41 Cataract extraction status, right eye; E66.9 Obesity, unspecified; Z68.32 Body mass index [BMI] 32.0-32.9, adult
CPT/HCPCS: 36415; 71046; 80048; 80053; 83605; 83735; 83880; 84443; 85025; 85027; 85055; 93005; 96374; 97110; 97116; 97161; 97165; 97530; 97535; 99285; A9270; C8929; J1938; Q9957

== ENCOUNTER 2025-01-04 15:06 | Outpatient (CLI) | payer MEDICARE, SELFPAY ==
[2025-01-04 16:08] LABS: Add Urine Microscopic? YES; Appearance Urine Clear (Clear); Bacteria Urine 4+ /hpf; Bilirubin Urine Negative (Negative); Blood Urine Negative (Negative); Color Urine Yellow (Yellow); Glucose Urine UA 2+ mg/dL (Negative); Hyaline Casts Urine Present /lpf; Ketones Urine Negative (Negative); Leukocyte Esterase Ur 1+ LEU/UL (Negative); Need Manual Microscopic Reviewed; Nitrate Urine Positive (Negative); Protein Urine Trace mg/dL (Negative); RBC Urine 0-2 /hpf (0-2); Specific Grav Ur 1.024 (1.001-1.035); Squamous Epithelial Cell Urine None Seen /hpf (Few); Urobilinogen Urine 0.2 mg/dL (<2.0); WBC Urine 0-5 /hpf (0-3); pH Urine 5.5 (5.0-9.0)
--- OUTSIDE RECORDS SUMMARY | 2025-01-05 14:49 | XMS_ITS | Clinical Summary ---
Author Organization [facility] Address [address] [place] [address] Care Team Providers Care Glass Smoother Name Role Phone Leon Taylor MD Primary Care Provider + Source Comments [facility],non-owned Affiliates and Associated Physician Practices is amultiple site organization consisting of ambulatory clinics and hospital sitesin [place], [place], [place] and [place]. This disclosure is being madepursuant to the Care Everywhere program and may not contain all information available regarding this patient. Last updated 18.[facility] [employer] Social History Tobacco Use Types Packs/Day Years [...] fective for All Dates) Name:Kamron Rodriguez Member ID:[id number] Relation to Subscriber:Self Name:Kamron Rodriguez Subscriber ID:[id number] Payer ID:Not on file Group ID:Not on file Type:Medicare Address: [place] [id number] MEDICARE SUPPLEMENT PAYOR GENERIC MEDICARE MEDICARE SUPPLEMENT PAYOR GENERIC * Guarantor: KAMRON RODRIGUEZ Account Type Relation to Patient Date of Phone Billing Address Personal/[place] [address] MEDICARE MEDICARE SUPPLEMENT PAYOR GENERIC Care Teams Glass Smoother Relationship Specialty Start Date End Date Leon Taylor MD NPI: [id number] [place] [id number] PCP - General 02/28/19
--- OUTSIDE RECORDS SUMMARY | 2025-01-05 14:49 | XMS_ITS | Encounter Summary ---
Author Organization [facility] Address [address] [facility] [place] [address] Care Team Providers Care Claim Agent Name Role Phone Leon Taylor MD Primary Care Provider + Encounter Details Date Type Department Care Team (Late st Contact Info) Description 05/05/[address] [facility] - Pathology Lab [address] [place] [id number] Dorian Flynn MD [address] [address] Anemia, unspecified Social History Tobacco [...] AM CDT) Case Report Flow Cytometry Case: [id number] Authorizing Provider: Dorian Flynn MD Collected: 05/05/2023 09:15 AM Ordering Location: [facility] Care Pathology Lab Received: 05/05/2023 01:34 PM Pathologist: Munir Espinoza MD Specimen: Bone Marrow 05/05/2023 4:54 PM CDT [facility] Final Diagnosis Bone marrow, flow cytometric immunophenotypic analysis: - No evidence of non-Hodgkin lymphoma or high-grade myeloid neoplasm. - See interpretation. Correlation with clinical findings, corresponding bone marrow biopsy, cytogenetic/molecu lar studies is required. 05/05/2023 4:54 PM [facility] Flow Cytometry Interpretation Viability: 90% - Lymphocytes (17% of events) B-cells (5% of lymphocyes): polytypic, kappa:lambda ratio 1.6:1 T-cells (85% of lymphocytes): no immunophenotypic aberrancy detected - dimCD45 gate (5% of events) 2.3% of CD34 + blasts detected, express CD33 and CD13 with nut roaster maturation. Plasma cells: polytypic, kappa:lambda ratio 1.5:1 no immunophenotypic aberrancy detected MRD sent: no A bone marrow aspirate smear prepared from the flow cytometry specimen has been reviewed for quality control chemist purposes. 05/05/2023 4:54 PM [facility] Flow Cytometry Results Differential Result Comment Flow Cell Count /uL 36,800 Total Viability % 90.0 Lymphocytes % 17 Dim CD45 Region % 5 Monocytes % 8 Granulocytes % 69 05/05/2023 4:54 PM CDT [facility] PATH[facility] Reason for test Anemia, unspecified 285.9 05/05/2023 4:54 PM [facility] Client Specimen ID # [id number] 05/05/2023 4:54 PM [facility] Number of markers 14 were performed. A-2 Flow CD10 A-3 Flow CD13 A-5 Flow CD20 A-13 Flow CD117 A-14 FLOW CD138 A-1 Flow CD5 A-4 Flow CD19 A-6 Flow CD33 A-7 Flow CD34 A-8 Flow CD45 A-11 Flow CD38 A-12 Flow CD56 A-9 [place]+CD19+ A-10 Lambda+CD19+ 05/05/2023 4:54 PM [facility] Pathologist Location at [facility] 05/05/2023 4:54 PM [facility] Disclaimer Test performed at [facility], [address] [place] [address], [address]. *The established laboratory minimum viability is 70%. [...] complexity clinical testing. 05/05/2023 4:54 PM CDT [facility] Embedded Images 4:54 PM CDT [facility] Pathology/Cytolo gy BONE MARROW SPECIMEN / Unknown 05/05/2023 9:15 AM CDT 05/05/2023 1:34 PM CDT Dorian Flynn MD LAB - PATHOLOGY/CYTOLOGY ORDERAB LES Final Result [facility] [address] [phone] documented in this encounter Visit Diagnoses Diagnosis Anemia, unspecified documented in this encounter Care Teams Claim Agent Relationship Specialty Start Date End Date Leon Taylor MD [address] [address] PCP - General 02/28/19 documented as of this encounter
--- OUTSIDE RECORDS SUMMARY | 2025-01-05 14:49 | XMS_ITS | Encounter Summary ---
Author Organization [facility] Address [address] [facility] [place] [address] Care Team Providers Care Sweatband Cutting Machine Operator Name Role Phone Leon Taylor MD Primary Care Provider + Encounter Details Date Type Department Care Team (Late st Contact Info) Description 05/10/2023 Lab Requisition [facility] - Pathology Lab [address] [place] [phone] Dorian Flynn MD [address] [address] Illness, unspecified Social History Tobacco [...] Report Bone Marrow Patholog y Report Case: [id number] Authorizing Provider: Dorian Flynn MD Collected: 05/05/2023 09:15 AM Ordering Location: [facility] Care Pathology Lab Received: 05/10/2023 09:44 [...] blood smear: - Pancytopenia 05/10/2023 5:09 PM [facility] Comment Correlation with clinical findings, imaging and cytogenetic/molecular testing is required. 05/10/2023 5:09 PM [facility] Peripheral Smear Description RBC: normocytic and hypochromic anemia WBC: marked leukopenia with absolute lymphopenia, no circulating blasts seen Platelets: decreased in number 05/10/2023 5:09 PM [facility] Bone Marrow Aspirate Specimen quality: adequate Spicules: present Trilineage Hematopoiesis: present Myeloid:Erythroid ratio: normal Myeloid Maturation: normal Erythroid Maturation: normal Megakaryocyte morphology:normal Storage iron (by special stain): decreased Sideroblastic iron (by special stain): absent 05/10/2023 5:09 PM [facility] Bone Marrow Core Biopsy and [...] (by special stain): absent 05/10/2023 5:09 PM [facility] Flow Cytometry Summary Bone marrow, flow cytometric immunophenotypic analysis ([id number]): - No evidence of non-Hodgkin lymphoma or high-grade myeloid neoplasm. 05/10/2023 5:09 PM [facility] Clinical History 73 year-old male with pancytopenia. 05/10/2023 5:09 PM [facility] Pathologist Location at [facility] 05/10/2023 5:09 PM [facility] Disclaimer The performance characteristics of all immunohistochemical and indirect immunofluorescence stains (if any) cited in this report were determined by the Histopathology Laboratory of [facility]. Some of these tests were developed by [...] attending (teaching) pathologist. 05/10/2023 5:09 PM CDT [facility] Embedded Images 05/10/2023 5:09 PM CDT [facility] Pathology/Cytology BONE MARROW SPECIMEN / Unknown 05/05/2023 9:15 AM CDT 05/10/2023 9:44 AM CDT Miscellaneous samples (specimen) BONE MARROW SPECIMEN / Unknown 05/05/2023 9:15 AM CDT 05/10/2023 9:44 AM CDT Dorian Flynn MD LAB - PATHOLOGY/CYTOLOGY ORDERAB LES Final Result [facility] [address] [phone] documented in this encounter Visit Diagnoses Diagnosis Illness, unspecified documented in this encounter Care Teams Sweatband Cutting Machine Operator Relationship Specialty Start Date End Date Leon Taylor MD [address] [address] PCP - General 02/28/19 documented as of this encounter
--- OUTSIDE RECORDS SUMMARY | 2025-01-05 14:50 | XMS_ITS | Encounter Summary ---
Author Organization [facility] Healthcare Address [address] [place] [address] Care Team Providers Care Duct Layer Supervisor Name Role Phone Leon Taylor MD Primary Care Prov ider Bhavesh Valdez MD Unavailable [phone] Nolan Herron MD Unavailable [phone] Edward Lovett MD Unavailable Rosanne Chaves NP Unavailable [phone] Encounter Details Date Type Department Care Team (Late st Contact Info) Description 12/31/2024 Orders Only [facility] Medical Group Cardiology [address] [place] [address] Marly Benedict MD [address] [address] Social History Tobacco Use Types Packs/Day Years [...] on file 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 [place] [address] Edward Lovett MD [address] [place] [address] Nonrheumatic tricuspid valve regurgitation 01/08/2025 5:00 PM CDT - 01/08/2025 7:30 PM CDT Surgery [facility] Operating Room [facility] [place] [address] Edward Lovett MD [address] [place] [address] Transcatheter Tricuspid Valve Implant (TTVI/TTVR) documented as of this encounter Procedures Procedure Name Priority Date/Time Associated Diagnosis Comments CARDIOLOGY DOCUMENT SCAN Routine 12/27/2024 3:10 PM CDT CARDIOLOGY DOCUMENT SCAN Routine 12/26/2024 3:08 PM CDT documented in this encounter Results * Cardiology Document Scan (12/27/2024 3:10 PM CDT) Anatomical Region Laterality Modality Other us Marin Green MD CV CARDIAC SERVICES PROCEDURES F inal Result * Cardiology Document Scan (12/26/2024 3:08 PM CDT) Anatomical Region Laterality Modality Other us Marly Benedict MD CV CARDIAC SERVICES PRO CEDURES Final Result documented in this encounter Visit Diagnoses Not on filedocumented in this encounter Care Teams Duct Layer Supervisor Relationship Specialty Start Date End Date Leon Taylro MD [address] [place] [address] PCP - General 12/03/16 Bhavesh Valdez MD [address] [facility] [address] [place] [address] Consulting Physician Cardiology 08/26/23 Nolan Herron MD [address] [facility] [address] [place] [id number] Referring Physician Hematology 08/26/23 Edward Lovett MD [address] [facility] [address] [place] [address] Referring Physician Cardiology 12/26/24 Rosanne Chaves NP [address] [facility] [address] [place] [address] Nurse Practitioner Cardiothoracic Surgery 12/26/24 documented as of this encounter
--- OUTSIDE RECORDS SUMMARY | 2025-01-05 14:50 | XMS_ITS | Encounter Summary ---
Author Organization [facility] Healthcare Address [address] [place] [address] Care Team Providers Care Traffic Counter Name Role Phone Leon Taylor MD Primary Care Prov ider Bhavesh Valdez MD Unavailable [phone] Nolan Herron MD Unavailable [phone] Edward Lovett MD Unavailable Rosanne Chaves NP Unavailable [phone] Reason for Referral * MRI/CAT/PET Scan (Routine) - Closed Specialty Diagnoses / Procedures Referred By Sanya hinojosa Referred To Contact Radiology Diagnoses Pre-op evaluation Severe tricuspid valve regurgitation Nonrheumatic aortic (valve) insufficiency Procedures CTA Heart, Coronary Arteries and Thoracic Aorta with Contrast and without if performed CTA Chest W WO Contrast Rosanne Chaves NP [address] [facility] [address] [place] [address] Phone: tel: fax: [facility] [address] [place] [address] Referral ID Status Reason Start Date Expiration Date Visits Re quested Visits Authorized [id number] Closed 01/03/2025 02/02/2026 1 1 Reason for Visit * MRI/CAT/PET Scan (Routine) - Closed Specialty Diagnoses / Procedures Referred By Sanya hinojosa Referred To Contact Radiology Diagnoses Pre-op evaluation Severe tricuspid valve regurgitation Nonrheumatic aortic (valve) insufficiency Procedures CTA Heart, Coronary Arteries and Thoracic Aorta with Contrast and without if performed CTA Chest W WO Contrast Rosanne Chaves, MORENITA [address] [place] [address] Phone: tel: fax: [facility] [address] [place] [place] [address] Referral ID Status Reason Start Date Expiration Date Visits Re quested Visits Authorized [id number] Closed 01/03/2025 02/02/2026 1 1 Encounter Details Date Type Department Care Team (Latest Contact Info) Description 01/03/2025 12:56 PM CDT - 01/03/2025 11:59 PM CDT Hospital Encounter [facility] - Imaging [address] [place] [address] Pre-op evaluation; Severe tricuspid valve regurgitation; Nonrheumatic aortic (valve) insufficiency Discharge Disposition: Discharge to home or self care Social History Tobacco Use Types Packs/Day Years [...] on file 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 Gender Identity Not on file Sexual Orientation Not on file documented as of this encounter Medications at Time of Discharge acetaminophen ER (TYLENOL) 650 mg 8 hr tablet Take 1 tablet (650 mg total) by mouth every 8 (eight) hours as needed for pain cyanocobalamin (vitamin B-12) 1,000 mcg tabletIndications :Prevention of Vitamin B12 Deficiency Take 1 tablet (1,000 mcg total) by mouth daily doxazosin (CARDURA) 8 mg tablet TAKE 1 TABLET (8 MG TOTAL) BY MOUTH DAILY 90 tablet 2 12/24/2019 Eliquis 5 mg tablet TAKE 1 TABLET BY MOUTH TWICE A DAY 60 tablet 7 07/06/2021 ferrous sulfate 325 mg (65 mg of elemental iron) tablet Take 1 tablet (325 mg total) by mouth 2 (two) times a day folic acid (FOLVITE) 400 mcg tablet Take 2 tablets (800 mcg total) by mouth daily furosemide (LASIX) 40 mg tablet Take 1 tablet (40 mg total) by mouth 2 (two) times a day 10/01/2024 hydrOXYzine (ATARAX) 10 mg tablet Take 1 tablet (10 mg total) by mouth every 6 (six) hours as needed for itching 12/14/2024 Jardiance 10 mg tablet Take 1 tablet (10 mg total) by mouth daily 12/27/2024 loperamide (IMODIUM) 2 mg capsule 10/03/2020 oxybutynin (DITROPAN) 5 mg tablet TAKE 1 TAB BY MOUTH DAILY FOR BLADDER 08/08/2020 propranolol LA (INDERAL LA) 120 mg 24 hr capsule Take 1 capsule (120 mg total) by mouth daily tamsulosin (FLOMAX) 0.4 mg extended release capsule Take 1 capsule (0.4 mg total) by mouth 2 (two) times a day 5 10/31/2018 documented as of this encounter Discharge Disposition Disposition Code Departure Means Destination Discharge to home or self care documented in this encounter Plan of Treatment Upcoming Encounters Date Type Department Care Team (Latest Contact Info) Description 01/08/2025 5:00 PM CDT Hospital Encounter [facility] Operating Room [facility] [place] [address] Edward Lovett MD [address] [facility] [address] [place] [address] Nonrheumatic tricuspid valve regurgitation 01/08/2025 5:00 PM CDT - 01/08/2025 7:30 PM CDT Surgery [facility] Operating Room [address] [place] [phone] Edward Lovett MD [address] [facility] [address] [place] [address] Transcatheter Tricuspid Valve Implant (TTVI/TTVR) documented as of this encounter Procedures Procedure Name Priority Date/Time Associated Diagnosis Comments CTA HEART AND CORONARIES WITH THORACIC AORTA Schedule Routine, Read Routine (OP Routine) 01/03/2025 2:04 PM CDT Pre-op evaluation Severe tricuspid valve regurgitation Nonrheumatic aortic (valve) insufficiency documented in this encounter Results * CTA Heart, Coronary Arteries and Thoracic Aorta with Contrast and without if performed (01/03/2025 2:04 PM CDT) Anatomical Region Laterality Modality Chest N/A Computed Tomogra phy 01/03/2025 3:28 PM CDT Impressions 01/03/2025 5:13 PM CDT 1. Tricuspid valve, right ventricle, right atrial measurements as described above in preparation for transcatheter valve placement in patient with severe tricuspid valve regurgitation. 2. Decreased, small left and trace right pleural effusions. 3. Unchanged left atrial appendage thrombus distal to the occluder device. No thrombus in the left atrial side of the occluder device. Dictated by: Cecy Olivera MD The radiology attending physician has personally reviewed this study, and had reviewed and/or edited this written report and agrees with it. Electronically signed by: Moshe Anthony M.D. Narrative 01/03/2025 5:13 PM CDT EXAMINATION: Heart CT and CTA abdomen and pelvis with contrast. History: Tricuspid valve regurgitation, pre-transcatheter tricuspid valve procedure. Technique: Heart CT and CT angiogram of the abdomen and pelvis performed during administration of 125 mL of Optiray 350, intravenously per the TAVR tricuspid valve protocol, to include venous phase imaging of the lower extremities. Images were transferred to an independent workstation for additional 3D post-processing. FINDINGS: Tricuspid valve and right heart measurements: Tricuspid valve annulus area: Systole 1833 mm2 Diastole 1927 mm2 Tricuspid valve annulus circumference: Systole 154 mm Diastole 161 mm Tricuspid valve diameter (craniocaudal): Systole 51 mm Diastole 51 mm Tricuspid valve diameter (septal to lateral): Systole 49 mm Diastole 46 mm Right ventricle height perpendicular to tricuspid valve plane (Systole): 68 x 67 mm (Anterior to Posterior view x Septal to Lateral view ) Right ventricle height perpendicular to tricuspid valve plane (Diasystole): 65 x 66 mm (Anterior to Posterior view x Septal to Lateral view) Right atrial height (Systole): 77 x 82 mm (Anterior to Posterior view x Septal to Lateral view) Right atrial diameter (Diasystole): 77 x 94 mm (Anterior to Posterior view x Septal to Lateral view) Other findings: Small left and trace right pleural effusions. Mild bibasilar atelectasis. Left atrial appendage occluder device is noted with unchanged thrombus in the left appendage side of the device. No thrombus in the arterial side of the occluder device. Three-vessel coronary artery disease. Mild cardiomegaly including biatrial enlargement. Significant contrast reflux into the coronary sinus and IVC. Patent MAXWELL to LAD and saphenous graft to LCx grafts. Unchanged thoracic lymphadenopathy which could be reactive. Cirrhotic morphology of the liver and trace ascites. No suspicious osseous abnormality Procedure Note Moshe Anhtony MD - 01/03/2025 EXAMINATION: Heart CT and CTA abdomen and pelvis with contrast. History: Tricuspid valve regurgitation, pre-transcatheter tricuspid valve procedure. Technique: Heart CT and CT angiogram of the abdomen and pelvis performed during administration of 125 mL of Optiray 350, intravenously per the TAVR tricuspid valve protocol, to include venous phase imaging of the lower extremities. Images were transferred to an independent workstation for additional 3D post-processing. FINDINGS: Tricuspid valve and right heart measurements: Tricuspid valve annulus area: Systole 1833 mm2 Diastole 1927 mm2 Tricuspid valve annulus circumference: Systole 154 mm Diastole 161 mm Tricuspid valve diameter (craniocaudal): Systole 51 mm Diastole 51 mm Tricuspid valve diameter (septal to lateral): Systole 49 mm Diastole 46 mm Right ventricle height perpendicular to tricuspid valve plane (Systole): 68 x 67 mm (Anterior to Posterior view x Septal to Lateral view ) Right ventricle height perpendicular to tricuspid valve plane (Diasystole): 65 x 66 mm (Anterior to Posterior view x Septal to Lateral view) Right atrial height (Systole): 77 x 82 mm (Anterior to Posterior view x Septal to Lateral view) Right atrial diameter (Diasystole): 77 x 94 mm (Anterior to Posterior view x Septal to Lateral view) Other findings: Small left and trace right pleural effusions. Mild bibasilar atelectasis. Left atrial appendage occluder device is noted with unchanged thrombus in the left appendage side of the device. No thrombus in the arterial side of the occluder device. Three-vessel coronary artery disease. Mild cardiomegaly including biatrial enlargement. Significant contrast reflux into the coronary sinus and IVC. Patent MAXWELL to LAD and saphenous graft to LCx grafts. Unchanged thoracic lymphadenopathy which could be reactive. Cirrhotic morphology of the liver and trace ascites. No suspicious osseous abnormality IMPRESSION: 1. Tricuspid valve, right ventricle, right atrial measurements as described above in preparation for transcatheter valve placement in patient with severe tricuspid valve regurgitation. 2. Decreased, small left and trace right pleural effusions. 3. Unchanged left atrial appendage thrombus distal to the occluder device. No thrombus in the left atrial side of the occluder device. Dictated by: Cecy Olivera MD The radiology attending physician has personally reviewed this study, and had reviewed and/or edited this written report and agrees with it. Electronically signed by: Moshe Anthony M.D. Rosanne Chaves NP IMG CT PROCEDURES Final R esult documented in this encounter Visit Diagnoses Diagnosis Nonrheumatic tricuspid valve regurgitation- Primary Pre-op evaluation Severe tricuspid valve regurgitation Nonrheumatic aortic (valve) insufficiency Nonrheumatic tricuspid valve regurgitation documented in this encounter Administered Medications Inactive Administered Medications - up to 3 most recent administrations Medication Order MAR Action Action Date Dose Rate Site ioversoL (OPTIRAY 350) syringe 125 mL 125 mL, intravenous, Once in imaging, contrast, Starting on Svetlana 01/03/25 at 1326, For 1 dose Contrast Given 01/03/2025 1:30 PM CDT 125 mL sodium chloride 0.9% flush 125 mL 125 mL, intravenous, Once in imaging, line care, Starting on Svetlana 01/03/25 at 1326, For 1 dose Given 01/03/2025 1:30 PM CDT 125 mL documented in this encounter Care Teams Traffic Counter Relationship Specialty Start Date End Date Leon Taylor MD [address] [place] [address] PCP - General 12/03/16 Bhavesh Valdez MD [address] [facility] [address] [place] [address] Consulting Physician Cardiology 08/26/23 Nloan Herron MD [address] [facility] [address] [place] [address] Referring Physician Hematology 08/26/23 Edward Lovett MD [address] [facility] [address] [place] [address] Referring Physician Cardiology 12/26/24 Rosanne Chaves NP [address] [facility] [address] [place] [address] Nurse Practitioner Cardiothoracic Surgery 12/26/24 documented as of this encounter
--- OUTSIDE RECORDS SUMMARY | 2025-01-05 14:50 | XMS_ITS | Encounter Summary ---
Author Organization [facility] Healthcare Address [address] [place] [address] Care Team Providers Care Rn Compliance Name Role Phone Leon Taylor MD Primary Care Prov ider Bhavesh Valdez MD Unavailable [phone] Nolan Herron MD Unavailable [phone] Edward Lovett MD Unavailable Rosanne Chaves NP Unavailable [phone] Encounter Details Date Type Department Care Team (Late st Contact Info) Description 12/03/2024 Results Follow-Up [facility] Medical [facility] Cardiology [address] [facility] [address] [place] [address] Veena Balderas MA Social History [...] file 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[employer]INC[employer]AL [employer]CH[employer] Gender Identity Not on file Sexual [...] Description 01/08/2025 5:00 PM CDT Hospital Encounter [facility] Operating Room [facility] [place] [phone] Edward Lovett MD [address] [facility] [address] [place] [address] Nonrheumatic tricuspid valve regurgitation 01/08/2025 5:00 PM CDT - 01/08/2025 7:30 PM CDT Surgery [facility] Operating Room [address] [place] [id number] Edward Lovett MD [address] [facility] [address] [place], [place] [id number] Transcatheter Tricuspid Valve Implant (TTVI/TTVR) documented as of this encounter Visit Diagnoses Not on filedocumented in this encounter Care Teams Rn Compliance Relationship Specialty Start Date End Date Leon Taylor MD [address] [place] [address] PCP - General 12/03/16 Bhavesh Valdez MD [address] [facility] [address] [place] [address] Consulting Physician Cardiology 08/26/23 Nolan Herron MD [address] [facility] [address] [place] [address] Referring Physician Hematology 08/26/23 Edward Lovett MD [address] [facility] [address] [place] [address] Referring Physician Cardiology 12/26/24 Rosanne Chaves NP [address] [facility] [address] [place] [address] Nurse Practitioner Cardiothoracic Surgery 12/26/24 documented as of this encounter
--- OUTSIDE RECORDS SUMMARY | 2025-01-05 14:50 | XMS_ITS | Clinical Summary ---
Author Organization [facility] [address] Address [address] [place] [address] Care Team Providers Care Insole Department Worker Name Role Phone Leon Taylor MD Primary Care Prov ider Bhavesh Valdez MD Unavailable Nolan Herron MD Unavailable [phone] Edward Mckeon MD Unavailable Rosanne Chaves NP Unavailable [phone] Allergies No known active allergies Medications tamsulosin (FLOMAX) 0.4 mg extended release capsule Take 1 capsule (0.4 mg total) by mouth 2 (two) times a day 5 9 Active doxazosin (CARDURA) 8 mg tablet TAKE 1 TABLET (8 MG TOTAL) BY MOUTH DAILY 90 tablet 2 0 Active Additional Information Patient taking differently: 4 mg oral 2 times daily, Reported on 01/03/2025 acetaminophen ER (TYLENOL) 650 mg 8 hr tablet Take 1 tablet (650 mg total) by mouth every 8 (eight) hours as needed for pain Active oxybutynin (DITROPAN) 5 mg tablet TAKE 1 TAB BY MOUTH DAILY FOR BLADDER 0 Active loperamide (IMODIUM) 2 mg capsule 1 Active Eliquis 5 mg tablet TAKE 1 TABLET BY MOUTH TWICE A DAY 60 tablet 7 1 Active ferrous sulfate 325 mg (65 mg [...] daily Active cyanocobalamin (vitamin B-12) 1,000 mcg tabletIndicati ons:Prevention of Vitamin B12 Deficiency Take 1 tablet (1,000 mcg total) by mouth daily Active furosemide (LASIX) 40 mg tablet Take 1 tablet (40 mg total) by mouth 2 (two) times a day 5 Active Jardiance 10 mg tablet Take 1 tablet (10 mg total) by mouth daily 5 Active hydrOXYzine (ATARAX) 10 mg tablet Take 1 tablet (10 mg total) by mouth every 6 (six) hours as needed for itching 5 Active lisinopril (PRINIVIL,ZEST RIL) 20 mg tablet Take 1 tablet (20 mg total) by mouth daily 3 9 01/04/20 25 Discontin ued(Patie nt Reported) metOLazone (ZAROXOLYN) 2.5 mg tablet TAKE 1 TABLET A DAY ONLY 3 DAYS OF THE WEEK. 36 tablet 3 2 01/04/20 25 Discontin ued(Alter love therapy) losartan (COZAAR) 50 mg tablet Take 1 tablet (50 mg total) by mouth daily 01/04/20 25 Discontin ued(Patie nt Reported) Active Problems Problem Noted Date Diagnosed Date Pre-op evaluation 01/04/2025 Severe tricuspid valve regurgitation 01/04/2025 Other thrombophilia 01/03/2025 Acute on chronic right-sided congestive heart fa ilure 12/18/2024 Nonrheumatic tricuspid valve regurgitation 08/22 Severe obesity 08/22/2024 Presence of Watchman left atrial appendage closu re device 03/21/2024 02/07/2024 Persistent atrial fibrillation 05/25/2019 Overview (05/25/2019): Added automatically from request for surgery [id number] Assessment & Plan (08/25/2023 5:27 PM CENTER DIRECTOR LEAD TEACHER): The patient is status post catheter ablation [...] with atrial fibrillation: a report of the [place] College of Cardiology/Canadian Heart Association Task Force on Practice Guidelines [...] CABG (coronary artery bypass graft) 04/05/20 17 longterm (current) use of anticoagulants [Z79.0 1] 02/16/2017 Assessment & Plan (08/25/2023 5:28 PM CENTER DIRECTOR LEAD TEACHER): The patient has atrial fibrillation with an elevated [id number] score (3). Based on this, systemic anticoagulation [...] of Atrial Fibrillation: A Report of the [place] College of Cardiology/ Canadian Heart Association Joint Committee on Clinical Practice Guidelines. Circulation 2022;148: e42 Class IIA: In patients with AF, a moderate to high risk of stroke ([id number] score >=2), and a contraindication to long-term oral anticoagulation due to a nonreversible cause, percutaneous LAAO (pLAAO) is reasonable Hypertension 10/15/2014 Chronic coronary artery disease 09/30/2014 Resolved Problems Problem Noted Date Diagnosed Date Resolved Date A-fib 02/07/2024 03/21/2024 Paroxysmal atrial fibrillation (CMS/HCC) 03/30/2019 06/29/2022 Overview (03/30/2019): Added automatically from request for surgery [id number] Atrial fibrillation (CMS/HCC) [I48.91] 02/16/2017 06/29/2022 Encounters Date Type Department Care Team Description 01/03/2025 12:56 PM CDT - 01/03/2025 11:59 PM CDT Hospital Encounter [facility] [address] [place] [address] Pre-op evaluation; Severe tricuspid valve regurgitation; Nonrheumatic aortic (valve) insufficiency Discharge Disposition: Discharge to home or self care 01/03/2025 11:55 AM CDT Lab [facility] Outpatient Lab [address] [place] [address] Pre-op evaluation; Severe tricuspid regurgitation 01/03/2025 11:00 AM CDT Office Visit Cardiovascular and Thoracic Surgery [address] [facility] [address] [place] [address] Rosanne Chaves NP Urinary tract infection without hematuria, site unspecified (Primary Dx); Pre-op evaluation; Severe tricuspid regurgitation; Severe tricuspid valve regurgitation; Other thrombophilia (HCC); Nonrheumatic aortic (valve) insufficiency 12/31/2024 Orders Only [facility] Cardiology [address] [place] [address] [place] [phone] Marly Benedict MD 12/28/2024 Telephone [place] [address] [place] [phone] Bhavesh Valdez MD 12/26/2024 Orders Only [facility] Cardiology [address] [place] [address] [place] [phone] Hyun Faria MD 12/26/2024 Documentation Cardiovascular and Thoracic Surgery [address] [facility] [address] [place] [address] Aziza Kumari 12/26/2024 Documentation Cardiovascular and Thoracic Surgery [address] [place] [address] [address] [place] [address] Aziza Kumari 12/20/2024 Orders Only [facility] Cardiology [address] [place] [address] [place] [phone] Hyun Faria MD 12/18/2024 11:00 AM CDT Office Visit [facility] Cardiology [address] [place] [address] [place] [phone] Lliiana Bynum NP Acute on chronic right-sided congestive heart failure (HCC) (Primary Dx) 12/18/2024 Orders Only [facility] Health Information Management [address] [place] [address] Hyun Faria MD 12/17/2024 Telephone [facility] Cardiology [address] [place] [address] [place] [phone] Bhavesh Valdez MD 12/13/2024 12:06 PM CDT Anesthesia Event [facility] [address] [place] [phone] Denia Olivares MD Fitterer, Morgan Elisabeth, CRNA 12/13/2024 10:24 AM CDT - 12/13/2024 11:59 PM CDT Hospital Encounter [facility] [address] [place] [phone] Bhavesh Washington MD Nonrheumatic tricuspid valve regurgitation Discharge Disposition: Discharge to home or self care 12/10/2024 Telephone [facility] Cardiology [address] [place] [address] [address], [place] [address] Edward Mckeon MD MARCE Tricuspid Scheduling 12/03/2024 Results Follow-Up [facility] Cardiology [address] [place] [address] [address], [place] [address] Veena Balderas MA 11/09/2024 3:00 PM CENTER DIRECTOR LEAD TEACHER - 11/09/2024 11:59 PM CENTER DIRECTOR LEAD TEACHER Hospital Encounter [facility] [address] [place] [phone] Nonrheumatic tricuspid valve regurgitation Discharge Disposition: Discharge to home or self care 11/09/2024 2:00 PM CENTER DIRECTOR LEAD TEACHER - 11/09/2024 11:59 PM CENTER DIRECTOR LEAD TEACHER Hospital Encounter [facility] Cardiac Testing [address] [place] [address] [address] [place] [address] Nonrheumatic tricuspid valve regurgitation Discharge Disposition: Discharge to home or self care 11/09/2024 10:27 AM CENTER DIRECTOR LEAD TEACHER - 11/09/2024 11:59 PM CENTER DIRECTOR LEAD TEACHER Hospital Encounter [facility] [address] [place] [phone] Edward Mckeon MD Nonrheumatic tricuspid valve regurgitation; Abnormal result of cardiovascular function study, unspecified Discharge Disposition: Discharge to home or self care 11/09/2024 10:00 AM CENTER DIRECTOR LEAD TEACHER - 11/09/2024 11:59 PM CENTER DIRECTOR LEAD TEACHER Hospital Encounter [facility] [address] [place] [address] Edward Mckeon MD Dysphagia, unspecified type Discharge Disposition: Discharge to home or self care 10/29/2024 10:00 AM CENTER DIRECTOR LEAD TEACHER Office Visit [facility] Cardiology [address] [facility] [address] [place] [address] Edward Mckeon MD Persistent atrial fibrillation (HCC) (Primary Dx); Nonrheumatic tricuspid valve regurgitation; Abnormal result of cardiovascular function study, unspecified; Chronic coronary artery disease; Primary hypertension; Mixed hyperlipidemia 10/29/2024 Telephone [facility] Cardiology [address] [facility] [address] [place] [address] Edward Mckeon MD SCHEDULE TRICUSPID [...] artery disease CHF (congestive heart failure) (HCC) Pancytopenia Severe tricuspid valve regurgitation Splenomegaly Family History Medical History Relation Name Comments Heart disease Father Relation Name Status Comments Father Mother Social History Tobacco Use Types Packs/Day Years Used Date Smoking Tobacco: Never Smokeless Tobacco: Never Tobacco Cessation:Counseling Given: No Alcohol Use Standard Drinks/Week Comments No 0 [...] on file Legal Sex Male 8:52 PM CENTER DIRECTOR LEAD TEACHER Gender Identity Not on file Sexual Orientation Not on file Obstetrics History Last Filed Vital Signs Vital Sign Reading Time Taken Comments Blood Pressure 115/69 01/03/2025 11:09 AM CDT Pulse 86 01/03/2025 11:09 AM CDT Temperature 36.1 C (97 F) 02/07/2024 2:25 PM CDT Respiratory Rate 18 01/03/2025 11:09 AM CDT Oxygen Saturation 98% 01/03/2025 11:09 AM CDT Inhaled Oxygen Concentration - - Weight 107.9 kg (237 lb 14 oz) 01/03/2025 11:09 AM CDT Height 177.8 cm (5' 10 ) 01/03/2025 11:09 AM CDT Body Mass Index 34.13 01/03/2025 11:09 AM CDT Plan of Treatment Upcoming Encounters Date Type Department Care Team (Latest Contact Info) Description 01/08/2025 5:00 PM CDT Hospital Encounter [facility] [address] [place] [phone] Edward Mckeon MD [address] [address] Nonrheumatic tricuspid valve regurgitation 01/08/2025 5:00 PM CDT - 01/08/2025 7:30 PM CDT Surgery [facility] [address] [place] [phone] Edward Mckeon MD [address] [facility] [address] [address] Transcatheter Tricuspid Valve Implant (TTVI/TTVR) Health Maintenance Due Date Last Done Comments [...] history exists Medical Devices Implanted Type Area Hot Wort Settler Device Identifier Shelf Expiration Date Model / Serial / Lot [employer] Brad Device Closure 27mm Lt Watchman Flx Pro Cardiac Strl La [id number] - [id number] - [id number] Implanted:Qty: 1 on 02/07/2024 by Caleb Bonilla MD at [facility] Left Atrial Appendage Occluder [employer] Brad 12/07/2026 [id number] / [id number] / [id number] [employer] [facility] Vascade Mvp 6-12fr Venous Closure [id number] - [id number] - [id number] Implanted:Qty: 1 on 02/07/2024 by Caleb Bonilla MD at [facility] [employer] 11/23/2025 [id number] / [id number] / [id number] Procedures Procedure Name Priority Date/Time Associated Diagnosis Comments CTA HEART AND CORONARIES WITH THORACIC AORTA Schedule Routine, Read Routine (OP Routine) 01/03/2025 2:04 PM CDT Pre-op evaluation Severe tricuspid valve regurgitation Nonrheumatic aortic (valve) insufficiency EGFR Routine 01/03/2025 12:43 PM CDT Pre-op evaluation Severe tricuspid regurgitation DIFFERENTIAL AUTO Routine 01/03/2025 12:43 PM CDT Pre-op evaluation Severe tricuspid regurgitation PRO B-TYPE NATRIURETIC PEPTIDE Routine 01/03/2025 12:43 PM CDT Pre-op evaluation Severe tricuspid regurgitation CBC WITH AUTO DIFFERENTIAL Routine 01/03/2025 12:43 PM CDT Pre-op evaluation Severe tricuspid regurgitation COMPREHENSIVE METABOLIC PANEL Routine 01/03/2025 12:43 PM CDT Pre-op evaluation Severe tricuspid regurgitation PROTIME-INR Routine 01/03/2025 12:43 PM CDT Pre-op evaluation Severe tricuspid regurgitation TYPE AND SCREEN Routine 01/03/2025 12:43 PM CDT Pre-op evaluation Severe tricuspid regurgitation CARDIOLOGY DOCUMENT SCAN Routine 12/27/2024 3:10 PM CDT CARDIOLOGY DOCUMENT SCAN Routine 12/26/2024 3:08 PM CDT CARDIOLOGY DOCUMENT SCAN Routine 12/25/2024 4:33 PM CDT CARDIOLOGY DOCUMENT SCAN Routine 12/24/2024 4:12 PM CDT CARDIOLOGY DOCUMENT SCAN Routine 12/23/2024 4:11 PM CDT CARDIOLOGY DOCUMENT SCAN Routine 12/22/2024 4:09 PM CDT CARDIOLOGY DOCUMENT SCAN Routine 12/21/2024 4:07 PM CDT CARDIOLOGY DOCUMENT SCAN Routine 12/19/2024 4:57 PM CDT CARDIOLOGY DOCUMENT SCAN Routine 12/18/2024 4:56 PM CDT CARDIOLOGY DOCUMENT SCAN 12/18/2024 TRANSESOPHAGEAL ECHO (MARCE) W DOPPLER/CF WO CONTRAST Routine 12/13/2024 12:37 PM CDT Nonrheumatic tricuspid valve regurgitation PROTIME-INR Routine 12/11/2024 1:48 PM CDT Nonrheumatic tricuspid valve regurgitation Abnormal coagulation profile CBC WITH AUTO DIFFERENTIAL Routine 12/11/2024 1:48 PM CDT Nonrheumatic tricuspid valve regurgitation BASIC METABOLIC PANEL Routine 12/11/2024 1:48 PM CDT Nonrheumatic tricuspid valve regurgitation PULMONARY FUNCTION TEST (PFT) Routine 11/09/2024 3:58 PM CENTER DIRECTOR LEAD TEACHER Nonrheumatic tricuspid valve regurgitation TRANSTHORACIC ECHO (TTE) COMPLETE W DOPPLER/CF W CONTRAST Routine 11/09/2024 3:43 PM CENTER DIRECTOR LEAD TEACHER Nonrheumatic tricuspid valve regurgitation FL ESOPHAGRAM, DOUBLE CONTRAST Schedule Routine, Read Routine (OP Routine) 11/09/2024 12:16 PM CENTER DIRECTOR LEAD TEACHER Dysphagia, unspecified type CT TAVR Schedule Routine, Read Routine (OP Routine) 11/09/2024 11:50 AM CENTER DIRECTOR LEAD TEACHER Nonrheumatic tricuspid valve regurgitation Abnormal result of cardiovascular function study, unspecified POCT CREATININE FOR CONTRAST EVALUATION Routine 11/09/2024 10:46 AM CENTER DIRECTOR LEAD TEACHER COMPREHENSIVE METABOLIC PANEL Routine 11/06/2024 11:05 AM CENTER DIRECTOR LEAD TEACHER Nonrheumatic tricuspid valve regurgitation CBC WITH AUTO DIFFERENTIAL Routine 11/06/2024 11:05 AM CENTER DIRECTOR LEAD TEACHER Nonrheumatic tricuspid valve regurgitation from Last 3 Months Results * CTA Heart, Coronary Arteries and [...] No suspicious osseous abnormality Procedure Note Moshe Anthony MD - 01/03/2025 EXAMINATION: Heart CT and [...] NP IMG CT PROCEDURES Final R esult * (ABNORMAL) eGFR (01/03/2025 12:43 PM CDT) eGFR 36(L) >=60 mL/min/1. 73 m2 Comment: Interpretive Data Reference Interval Normal >/= 90 mL/min/1.73m2 Mildly decreased* 60 - 89 mL/min/1.73m2 Mildly to moderately decreased 45 - 59 mL/min/1.73m2 Moderately to severely decreased 30 - 44 mL/min/1.73m2 Severely decreased 15 - 29 mL/min/1.73m2 Kidney Failure < 15 mL/min/1.73m2 *Relative to young adult level Estimated glomerular filtration rate is determined by the 2020 CKD-EPI equation recommended by the National Kidney Foundation (A Unifying Approach to GFR Estimation: Recommendations of the NKF-ASK Task Force on Reassessing the Inclusion of Race in Diagnosing Kidney Disease, JASN 202). The CKD-EPI equation should not be used for patients with unstable renal function and has not been validated in children and those over 70. Current interpretive data was last reviewed 2021. Blood 01/03/2025 12:4 3 PM CDT 01/03/2025 1:08 PM CDT us Rosanne Chaves NP LAB BLOOD ORDERABLES Nathalie chu Result [facility] [address] Department [place] [address] * (ABNORMAL) Differential, auto (01/03/2025 12:43 PM CDT) Neutrophil abs 1.00(L) 1.50 - 6.50 K/cumm Imm gran abs 0.00 0.00 - 0.10 K/cumm [facility] Lymphocyte abs 0.49(L) 0.80 - 3.30 K/cumm [facility] Monocyte abs 0.20 0.20 - 0.80 K/cumm [facility] Eosinophil abs 0.08 0.00 - 0.50 K/cumm [facility] Basophil abs 0.01 0.00 - 0.10 K/cumm [facility] Neutrophil pct 56.2 % [facility] Comment: Interpretive Data Percent cell count reference ranges are not reported, since discordance with absolute values may lead to misinterpretation of CBC data. Current Interpretive Data was last revised on 2017. Imm gran pct 0.0 % [facility] Comment: Interpretive Data Percent cell count reference ranges are not reported, since discordance with absolute values may lead to misinterpretation of CBC data. Current Interpretive Data was last revised on 2017. Lymphocyte pct 27.5 % [facility] Comment: Interpretive Data Percent cell count reference ranges are not reported, since discordance with absolute values may lead to misinterpretation of CBC data. Current Interpretive Data was last revised on 2017. Monocyte pct 11.2 % [facility] Comment: Interpretive Data Percent cell count reference ranges are not reported, since discordance with absolute values may lead to misinterpretation of CBC data. Current Interpretive Data was last revised on 2017. Eosinophil pct 4.5 % [facility] Comment: Interpretive Data Percent cell count reference ranges are not reported, since discordance with absolute values may lead to misinterpretation of CBC data. Current Interpretive Data was last revised on 2017. Basophil pct 0.6 % [facility] Comment: Interpretive Data Percent cell count reference ranges are not reported, since discordance with absolute values may lead to misinterpretation of CBC data. Current Interpretive Data was last revised on 2017. Blood 01/03/2025 12:4 3 PM CDT 01/03/2025 1:08 PM CDT Rosanne Chaves NP LAB BLOOD ORDERABLES Nathalie chu Result [facility] [address] Department of Laboratories [place], [place] [id number] * (ABNORMAL) Pro B-type natriuretic peptide (01/03/2025 12:43 PM CDT) NT-proBNP 9,019(H) <=450 pg/mL Comment: Interpretive Comments: A. Dyspnea in Acute Care Setting All Ages: < 300 pg/ml, acute heart failure unlikely. < 50 yrs: 300 - 450 pg/ml, further investigation warranted. > 450 pg/ml, acute heart failure likely. 50 - 74 yrs: 300 - 900 pg/ml, further investigation warranted. > 900 pg/ml, acute heart failure likely . > or = 75 yrs: 450 - 1800 pg/ml, further investigation warranted. > 1800 pg/ml, acute heart failure likely. B. Non-acute Setting < 75 yrs < 125 pg/ml, rules out heart failure. > or = 125 pg/ml, further investigation warranted. > or = 75 yrs < 450 pg/ml, rules out heart failure. > or = 450 pg/ml, further investigation warranted. - Knowledge of each individual patient's NT-proBNP range may be more useful than using similar cut-points for every patient. Please note that marked elevations in NT-proBNP levels may be observed in state other than Left Ventricular Congestive Failure, including: acute coronary syndromes, right heart strain/failure (including pulmonary embolism and cor pulmonale), critical illness, renal failure, as well as advanced age. - References: 1. Gerda ROD et.al. Eur Heart J. 2006:27:330-337. 2. Chris JOSHI, Malcolm ALBRIGHT. J. AM Elle Cardiol: Cardiovasc Imag. 2009;2: 216- 225. Interpretive Data Last Revised Date: 2018. Blood 01/03/2025 12:4 3 PM CDT 01/03/2025 1:08 PM CDT Rosanne Chaves NP LAB BLOOD ORDERABLES Nathalie chu Result [facility] [address] Department [place] [address] * (ABNORMAL) CBC with auto differential (01/03/2025 12:43 PM CDT) WBC 1.78(L) 3.80 - 9.90 K/cumm Hgb 9.1(L) 13.0 - 17.5 g/dL [facility] Hct 29.5(L) 38.9 - 50.3 % [facility] Plt 100(L) 150 - 400 K/cumm [facility] MPV 10.3 9.1 - 12.3 fL [facility] RBC 3.34(L) 4.30 - 5.80 M/cumm [facility] MCV 88.3 81.3 - 96.4 fL [facility] MCH 27.2 27.1 - 33.3 pg [facility] MCHC 30.8(L) 32.3 - 35.7 g/dL [facility] RDW CV 17.3(H) 11.1 - 14.9 % [facility] RDW SD 55.8(H) 35.7 - 48.1 fL [facility] NRBC abs 0.00 0.00 - 0.01 K/cumm [facility] Blood 01/03/2025 12:4 3 PM CDT 01/03/2025 1:08 PM CDT Rosanne Chaves NP LAB BLOOD ORDERABLES Nathalie l Result Performing Organization Address [facility] Co de Phone Number [facility] [address] Department [place] [address] * (ABNORMAL) Protime-INR (01/03/2025 12:43 PM CDT) PT 14.3(H) 9.7 - 13.0 sec INR 1.32(H) 0.90 - 1.20 [facility] Comment: Interpretive data Oral anticoagulant therapeutic ranges: Venous thromboembolism prophylaxis or treatment: 2.0-3.0 CARDIOLOGY Standard range: 2.0-3.0 High-intensity range: 2.5-3.5 Refer to indication-specific guidelines for appropriate target ranges for prosthetic heart valve replacement. Current interpretive data was last revised on 2019. Blood 01/03/2025 12:4 3 PM CDT 01/03/2025 1:08 PM CDT Rosanne Chaves NP LAB BLOOD ORDERABLES Nathalie l Result Performing Organization Address [facility] Co de Phone Number [facility] [address] Department [place] [address] * Type and screen (01/03/2025 12:43 PM CDT) Angelina, indirect Negative ABO Rh A Negative [facility] Blood 01/03/2025 12:4 3 PM CDT 01/03/2025 1:14 PM CDT Narrative [facility] - 01/03/2025 2:02 PM CDT Has the patient had Daratumumab or Isatuximab in the past 6 months?->Unknown Rosanne Chaves NP LAB BLOOD BANK TEST ORDER NEY Final Result [facility] [address] Department [place] [address] * (ABNORMAL) Comprehensive metabolic panel (01/03/2025 12:43 PM CDT) Sodium 137 135 - 145 mmol/L Potassium, pl 4.1 3.3 - 4.9 mmol/L [facility] Chloride 97 97 - 110 mmol/L [facility] CO2 29 22 - 32 mmol/L [facility] Anion gap 11 2 - 15 mmol/L [facility] BUN 43(H) 6 - 25 mg/dL [facility] Creatinine 1.90(H) 0.80 - 1.30 mg/dL [facility] Glucose 106 70 - 199 mg/dL [facility] Comment: Interpretive Data Fasting glucose >/= 126 mg/dl is diagnostic for diabetes. Fasting is defined as no caloric intake for at least 8 hours. Fasting glucose between 100 mg/dl to 125 mg/dl is diagnostic of prediabetes. In a patient with classic symptoms of hyperglycemia or hyperglycemic crisis, a random glucose >/= 200 mg/dl is diagnostic for diabetes. In the absence of unequivocal hyperglycemia, results should be confirmed by repeat testing. The classification and Diagnosis of Diabetes Diabetes Care 2021; 46: S19-S40. Current interpretive data was last revised 2022. Calcium 8.9 8.5 - 10.3 mg/dL [facility] Bilirubin, total 0.5 0.1 - 1.2 mg/dL [facility] Protein, pl 7.3 6.5 - 8.5 g/dL [facility] Albumin 3.8 3.5 - 5.0 g/dL [facility] Alk phos 62 40 - 130 Units/L [facility] ALT 15 7 - 55 Units/L [facility] AST 24 10 - 50 Units/L [facility] Blood 01/03/2025 12:4 3 PM CDT 01/03/2025 1:08 PM CDT us Rosanne Chaves NP LAB BLOOD ORDERABLES Nathalie l Result [facility] [address] Department [place] [address] * Cardiology Document Scan (12/27/2024 3:10 PM CDT) Anatomical Region Laterality Modality Other Marin Green MD CV CARDIAC SERVICES PROCEDURES F inal Result * Cardiology Document Scan (12/26/2024 3:08 PM CDT) Anatomical Region Laterality Modality Other us Marly Benedict MD CV CARDIAC SERVICES PRO CEDURES Final Result * Cardiology Document Scan (12/25/2024 4:33 PM CDT) Anatomical Region Laterality Modality Other Liliana Bynum NP CV CARDIAC SERVICES PROCEDUR ES Final Result * Cardiology Document Scan (12/24/2024 4:12 PM CDT) Anatomical Region Laterality Modality Other Liliana Bynum NP CV CARDIAC SERVICES PROCEDUR ES Final Result * Cardiology Document Scan (12/23/2024 4:11 PM CDT) Anatomical Region Laterality Modality Other Ta Pitts MD CV CARDIAC SERVICES PROCEDU RES Final Result * Cardiology Document Scan (12/22/2024 4:09 PM CDT) Anatomical Region Laterality Modality Other us Ta Pitts MD CV CARDIAC SERVICES PROCEDU RES Final Result * Cardiology Document Scan (12/21/2024 4:07 PM CDT) Anatomical Region Laterality Modality Other us Hyun Faria MD CV CARDIAC SERVICES PROCEDU RES Final Result * Cardiology Document Scan (12/19/2024 4:57 PM CDT) Anatomical Region Laterality Modality Other us Hyun Velagapudi MD CV CARDIAC SERVICES PROCEDU RES Final Result * Cardiology Document Scan (12/18/2024 4:56 PM CDT) Anatomical Region Laterality Modality Other Result Reyes hamilton Hyun Bienvenido MALLOY CV CARDIAC SERVICES PROCEDU RES Final Result * Cardiology Document Scan (12/18/2024) Anatomical Region Laterality Modality Other Hyun Bienvenido MALLOY CV CARDIAC SERVICES PROCEDU RES Final Result * TRANSESOPHAGEAL ECHO (MARCE) W DOPPLER/CF WO CONTRAST (12/13/2024 12:37 PM CDT) LV EF 60 % CONS SCIMAGE Anatomical Region Laterality Modality Echocardiography 12/13/2024 12:0 6 PM CDT Narrative 12/13/2024 1:19 PM CDT [facility] [address] [place] [address] TRANSESOPHAGEAL ECHOCARDIOGRAM Patient Name: KAMRON RODRIGUEZ : 1950 (74y 7m) Gender: M Study Date: 12/13/2024 12:06:09 PM Ht(Inch): 70 Wt(Lb): 252.01 BSA: 2.38 Director Social Service: FABI Location: [facility] [...] Procedure Note Bhavesh Washington MD - 12/13/2024 [facility] [address] [place] [address] TRANSESOPHAGEAL ECHOCARDIOGRAM Patient Name: KAMRON RODRIGUEZ : 1950 (74y 7m) Gender: M Study Date: 12/13/2024 12:06:09 PM Ht(Inch): 70 Wt(Lb): 252.01 BSA: 2.38 Director Social Service: FABI [facility] [...] regurgitation. Electronically Signed By: Bhavesh Washington MD [email or web address] 12/13/2024 1:18:57 PM CDT Edward Mckeon MD [...] BLOOD ORDERABLES Final Resul t [facility] [address] [phone] * (ABNORMAL) Protime-INR (12/11/2024 1:48 PM CDT) INR 1.1 [facility] Comment: Reference Range 0.9-1.1 Moderate-intensity Warfarin Therapy 2.0-3.0 Higher-intensity Warfarin Therapy 3.0-4.0 PT 12.2(H) 9.0 - 11.5 sec [facility]Jonn ashish Anil Comment: For additional information, please refer to http://education.Accion/faq/DSS477 (This link is being provided for informational/ educational purposes only.) Blood 12/11/2024 1:48 PM CDT 12/11/2024 1:48 PM CDT Edward Mckeon MD LAB BLOOD ORDERABLES Final Resul t Performing Organization Address City/[facility] Co de Phone Number [facility] [address] [place] [address] * (ABNORMAL) Basic metabolic panel (12/11/2024 1:48 [...] 10.3 mg/dL [facility] Blood 12/11/2024 1:4 8 PM CDT 12/11/2024 1:48 PM CDT Edward Mckeon MD LAB BLOOD ORDERABLES Final Resul t [email or web address] [address] [place] [address] * Pulmonary Function Test - (11/09/2024 3:58 PM CENTER DIRECTOR LEAD TEACHER) Anatomical Region Laterality Modality PFT 11/09/2024 3:56 PM CENTER DIRECTOR LEAD TEACHER Narrative 11/29/2024 4:32 PM CDT Table formatting from the original result was not included. [facility] BOARD CERTIFIED IN PULMONARY, CRITICAL CARE, AND SLEEP MEDICINE Merissa Jarrell MD [facility] [place] [address] MD Chaz Ching MD Office [phone] Dorian Christie MD PULMONARY FUNCTION TESTING 6 [...] Certified in Pulmonary and Critical Care Medicine [phone] Please note that our PFT lab has [...] W DOPPLER/CF W CONTRAST (11/09/2024 3:43 PM CENTER DIRECTOR LEAD TEACHER) Anatomical Region Laterality Modality Ultrasound 11/09/2024 2:03 PM CENTER DIRECTOR LEAD TEACHER Narrative 11/09/2024 5:48 PM CENTER DIRECTOR LEAD TEACHER [facility] [address] [place] [address] ECHOCARDIOGRAM Patient Name: KAMRON RODRIGUEZ : 1950 (74y 6m) Gender: M Study Date: 11/09/2024 02:03:35 PM Ht(Inch): 70 Wt(Lb): 251.99 BSA: 2.38 Director Social Service: Location: [address] Order Provider: EDWARD MCKEON [...] By: Edward Mckeon MD 11/09/2024 5:47:59 PM CENTER DIRECTOR LEAD TEACHER Procedure Note Edward Mckeon MD - 11/09/2024 [facility] [address] [place] [id number] ECHOCARDIOGRAM Patient Name: KAMRON RODRIGUEZ : 1950 (74y 6m) Gender: M Study Date: 11/09/2024 02:03:35 PM Ht(Inch): 70 Wt(Lb): 251.99 BSA: 2.38 Director Social Service: Location: [address] Order Provider: EDWARD MCKEON [...] By: Edward Mckeon MD 11/09/2024 5:47:59 PM CENTER DIRECTOR LEAD TEACHER Edward Mckeon MD CV ECHO PROCEDURES Final Result * FL Esophagram, Double Contrast (11/09/2024 12:16 PM CENTER DIRECTOR LEAD TEACHER) Anatomical Region Laterality Modality Body N/A Radio Fluoroscop y 11/09/2024 1:16 PM CENTER DIRECTOR LEAD TEACHER Impressions 11/09/2024 1:51 PM CENTER DIRECTOR LEAD TEACHER 1. Trace laryngeal penetration. No evidence of [...] Anil Randolph M.D. Narrative 11/09/2024 1:51 PM CENTER DIRECTOR LEAD TEACHER EXAMINATION: DOUBLE CONTRAST BARIUM ESOPHAGRAM 11/09/2024. HISTORY: [...] Result * CT TAVR (11/09/2024 11:50 AM CENTER DIRECTOR LEAD TEACHER) Anatomical Region Laterality Modality Chest N/A Computed Tomogra phy 11/09/2024 2:02 PM CENTER DIRECTOR LEAD TEACHER Impressions 11/09/2024 3:56 PM CENTER DIRECTOR LEAD TEACHER 1. Measurements as above 2. Left atrial [...] Popeye Becker M.D. Narrative 11/09/2024 3:56 PM CENTER DIRECTOR LEAD TEACHER EXAMINATION: Heart CT and CTA abdomen and [...] creatinine for contrast evaluation (11/09/2024 10:46 AM CENTER DIRECTOR LEAD TEACHER) [facility] Creatinine, POC 2.0(A) 0.6 - 1.5 mg/dL Comment:eGFR: 35 Blood 11/09/2024 10:4 6 AM CENTER DIRECTOR LEAD TEACHER Edward Mckeon MD POINT OF CARE TEST ORDERABLES Fi nal Result * (ABNORMAL) CBC with auto differential (11/06/2024 11:05 AM CENTER DIRECTOR LEAD TEACHER) [facility] WBC 1.9(L) 3.8 - 10.8 Thousand/u L [...] [facility] Blood 11/06/2024 11:0 5 AM CENTER DIRECTOR LEAD TEACHER 11/06/2024 11:05 AM CENTER DIRECTOR LEAD TEACHER us Edward Mckeon MD LAB BLOOD ORDERABLES Final Resul t [facility] [address] [phone] * (ABNORMAL) Comprehensive metabolic panel (11/06/2024 11:05 AM CENTER DIRECTOR LEAD TEACHER) Pathologist [facility] Glucose 102(H) 65 - [...] [facility] Blood 11/06/2024 11:0 5 AM CENTER DIRECTOR LEAD TEACHER 11/06/2024 11:05 AM CENTER DIRECTOR LEAD TEACHER us Edward Mckeon MD LAB BLOOD ORDERABLES Final Resul t [facility] [address] [place] [address] from Last 3 Months Insurance [facility] MEDICARE MEDICARE COMMERCIAL GENERIC Member Subscriber Plan / Payer (Ef fective 2019-Present) Name:JeriKamron plunkett Relation to Subscriber:Self Name:Kamron Rodriguez Payer ID:[id number] Group ID:[id number] Type:COMMERCIAL Address: [address] MEDICARE [employer] Advance Directives For more information, please contact: [phone] * Full Code (Latest Code Status on File) Date Activated Date Inactivated Comments 2019 10:44 AM 04/27/2019 5:09 PM Care Teams Insole Department Worker Relationship Specialty Start Date End Date Leon Taylor MD [address] [place] [address] PCP - General 12/03/16 Bhavesh Valdez MD [address] [facility] [address] [place], [place] [id number] Consulting Physician Cardiology 08/26/23 Nolan Herron MD [address] [facility] [address] [place] [id number] Referring Physician Hematology 08/26/23 Edward Mckeon MD [address] [place] [address] Referring Physician Cardiology 12/26/24 Rosanne Chaves NP [address] [place] [address] Nurse Practitioner Cardiothoracic Surgery 12/26/24
--- OUTSIDE RECORDS SUMMARY | 2025-01-05 14:50 | XMS_ITS | Encounter Summary ---
Author Organization [facility] Healthcare Address [address] [place] [address] Care Team Providers Care Senior Energy Trader Name Role Phone Leon Taylor MD Primary Care Prov ider Bhavesh Valdez MD Unavailable [phone] Nolan Herron MD Unavailable [phone] Edward Lovett MD Unavailable Rosanne Chaves NP Unavailable [phone] Encounter Details Date Type Department Care Team (Late st Contact Info) Description 01/03/2025 11:55 AM CDT Lab [facility] Outpatient Lab [address] [place] [address] Pre-op evaluation; Severe tricuspid regurgitation Social History Tobacco Use Types Packs/Day Years [...] on file 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 Gender Identity Not on file Sexual Orientation Not on file documented as of this encounter Plan of Treatment Upcoming Encounters Date Type Department Care Team (Latest Contact Info) Description 01/08/2025 5:00 PM CDT Hospital Encounter [facility] Operating Room [facility] [place] [address] Edward Lovett MD [address] [place] [address] Nonrheumatic tricuspid valve regurgitation 01/08/2025 5:00 PM CDT - 01/08/2025 7:30 PM CDT Surgery [facility] Operating Room [facility] [place] [address] Edward Lovett MD [address] [place] [address] Transcatheter Tricuspid Valve Implant (TTVI/TTVR) documented as of this encounter Procedures Procedure Name Priority Date/Time Associated Diagnosis Comments EGFR Routine 01/03/2025 12:43 PM CDT Pre-op evaluation Severe tricuspid regurgitation DIFFERENTIAL AUTO Routine 01/03/2025 12: 43 PM CDT Pre-op evaluation Severe tricuspid regurgitation [...] PM CDT Pre-op evaluation Severe tricuspid regurgitation documented in this encounter Results * (ABNORMAL) eGFR (01/03/2025 12:43 PM CDT) Pathologist [facility] eGFR 36(L) >=60 mL/min/1. 73 m2 Comment: [...] of Race in Diagnosing Kidney Disease, JASN 2020). The CKD-EPI equation should not be used for patients with unstable renal function and has not been validated in children and those over 70. Current interpretive data was last reviewed 2021. Blood 01/03/2025 12:4 3 PM CDT 01/03/2025 1:08 PM CDT us Rosanne Chaves NP LAB BLOOD ORDERABLES Nathalie chu Result [facility] [address] [place] [address] * (ABNORMAL) Differential, auto (01/03/2025 12:43 PM CDT) Pathologist [facility] Neutrophil abs 1.00(L) 1.50 - 6.50 K/cumm Imm gran abs 0.00 0.00 - 0.10 K/cumm [facility] Lymphocyte abs 0.49(L) 0.80 - 3.30 K/cumm [facility] Monocyte abs 0.20 0.20 - 0.80 K/cumm [facility] Eosinophil abs 0.08 0.00 - 0.50 K/cumm [facility] Basophil abs 0.01 0.00 - 0.10 K/cumm [facility] Neutrophil pct 56.2 % [facility] Comment: Interpretive Data Percent cell count reference ranges are not reported, since discordance with absolute values may lead to misinterpretation of CBC data. Current Interpretive Data was last revised on 2017. Imm gran pct 0.0 % [facility] Comment: Interpretive Data Percent cell count reference ranges are not reported, since discordance with absolute values may lead to misinterpretation of CBC data. Current Interpretive Data was last revised on 2017. Lymphocyte pct 27.5 % [facility] Comment: Interpretive Data Percent cell count reference ranges are not reported, since discordance with absolute values may lead to misinterpretation of CBC data. Current Interpretive Data was last revised on 2017. Monocyte pct 11.2 % [facility] Comment: Interpretive Data Percent cell count reference ranges are not reported, since discordance with absolute values may lead to misinterpretation of CBC data. Current Interpretive Data was last revised on 2017. Eosinophil pct 4.5 % [facility] Comment: Interpretive Data Percent cell count reference ranges are not reported, since discordance with absolute values may lead to misinterpretation of CBC data. Current Interpretive Data was last revised on 2017. Basophil pct 0.6 % [facility] Comment: Interpretive Data Percent cell count reference ranges are not reported, since discordance with absolute values may lead to misinterpretation of CBC data. Current Interpretive Data was last revised on 2017. Blood 01/03/2025 12:4 3 PM CDT 01/03/2025 1:08 PM CDT us Rosanne Chaves NP LAB BLOOD ORDERABLES Nathalie l Result [facility] [address] [place] [address] * (ABNORMAL) Pro B-type natriuretic peptide (01/03/2025 [...] et.al. Eur Heart J. 2006:27:330-337. 2. Chris RW, Malcolm AM. J. AM Elle Cardiol: Cardiovasc Imag. 2009;2: 216- 225. Interpretive Data Last Revised Date: 2018. Blood 01/03/2025 12:4 3 PM CDT 01/03/2025 1:08 PM CDT Rosanne Chaves NP LAB BLOOD ORDERABLES Nathalie l Result [facility] [address] [place] [address] * (ABNORMAL) CBC with auto differential (01/03/2025 12:43 PM CDT) WBC 1.78(L) 3.80 - 9.90 K/cumm Hgb 9.1(L) 13.0 - 17.5 g/dL [facility] Hct 29.5(L) 38.9 - 50.3 % [facility] Plt 100(L) 150 - 400 K/cumm [facility] MPV 10.3 9.1 - 12.3 fL [facility] RBC 3.34(L) 4.30 - 5.80 M/cumm [facility] MCV 88.3 81.3 - 96.4 fL [facility] MCH 27.2 27.1 - 33.3 pg [facility] MCHC 30.8(L) 32.3 - 35.7 g/dL [facility] RDW CV 17.3(H) 11.1 - 14.9 % [facility] RDW SD 55.8(H) 35.7 - 48.1 fL [facility] NRBC abs 0.00 0.00 - 0.01 K/cumm [facility] Blood 01/03/2025 12:4 3 PM CDT 01/03/2025 1:08 PM CDT us Rosanne Chaves NP LAB BLOOD ORDERABLES Nathalie l Result [facility] [address] [place] [address] * (ABNORMAL) Comprehensive metabolic panel (01/03/2025 12:43 PM CDT) Sodium 137 135 - 145 mmol/L Potassium, pl 4.1 3.3 - 4.9 mmol/L [facility] Chloride 97 97 - 110 mmol/L [facility] CO2 29 22 - 32 mmol/L [facility] Anion gap 11 2 - 15 mmol/L [facility] BUN 43(H) 6 - 25 mg/dL [facility] Creatinine 1.90(H) 0.80 - 1.30 mg/dL [facility] Glucose 106 70 - 199 mg/dL [facility] Comment: Interpretive Data Fasting glucose >/= 126 [...] classification and Diagnosis of Diabetes Diabetes Care 202; 46: S19-S40. Current interpretive data was last revised 2022. Calcium 8.9 8.5 - 10.3 mg/dL [facility] Bilirubin, total 0.5 0.1 - 1.2 mg/dL [facility] Protein, pl 7.3 6.5 - 8.5 g/dL [facility] Albumin 3.8 3.5 - 5.0 g/dL [facility] Alk phos 62 40 - 130 Units/L [facility] ALT 15 7 - 55 Units/L [facility] AST 24 10 - 50 Units/L [facility] Blood 01/03/2025 12:4 3 PM CDT 01/03/2025 1:08 PM CDT Rosanne Chaves NP LAB BLOOD ORDERABLES Nathalie l Result [facility] [address] [place] [address] * (ABNORMAL) Protime-INR (01/03/2025 12:43 PM CDT) PT 14.3(H) 9.7 - 13.0 sec INR 1.32(H) 0.90 - 1.20 [facility] Comment: Interpretive data Oral anticoagulant therapeutic ranges: Venous thromboembolism prophylaxis or treatment: 2.0-3.0 CARDIOLOGY Standard range: 2.0-3.0 High-intensity range: 2.5-3.5 Refer to indication-specific guidelines for appropriate target ranges for prosthetic heart valve replacement. Current interpretive data was last revised on 2019. Blood 01/03/2025 12:4 3 PM CDT 01/03/2025 1:08 PM CDT Rosanne Saundra Chaves RADIATOR FITTER LAB BLOOD ORDERABLES Nathalie l Result Performing Organization Address City/[facility]/ZIP Co de Phone Number [facility] [address] [place] [address] * Type and screen (01/03/2025 12:43 PM CDT) Angelina, indirect Negative ABO Rh A Negative [facility] Blood 01/03/2025 12:4 3 PM CDT 01/03/2025 1:14 PM CDT Narrative [facility] - 01/03/2025 2:02 PM CDT Has the patient had Daratumumab or Isatuximab in the past 6 months?->Unknown Rosanne Chaves RADIATOR FITTER LAB BLOOD BANK TEST ORDER NEY Final Result Performing Organization Address [facility] Co de Phone Number [facility] [address] [place] [address] documented in this encounter Visit Diagnoses Diagnosis Nonrheumatic tricuspid valve regurgitation- Primary Pre-op evaluation Severe tricuspid regurgitation Nonrheumatic tricuspid valve regurgitation documented in this encounter Care Teams Senior Energy Trader Relationship Specialty Start Date End Date Leon Taylor MD [address] [place] [address] PCP - General 12/03/16 Bhavesh Valdez MD [address] [facility] [address] [place], [place] [id number] Consulting Physician Cardiology 08/26/23 Nolan Herron MD [address] [facility] [address] [place] [address] Referring Physician Hematology 08/26/23 Edward Lovett MD [address] [facility] [address] [place] [address] Referring Physician Cardiology 12/26/24 Rosanne Chaves NP [address] [place] [address] Nurse Practitioner Cardiothoracic Surgery 12/26/24 documented as of this encounter
--- OUTSIDE RECORDS SUMMARY | 2025-01-05 14:50 | XMS_ITS | Encounter Summary ---
Author Organization [facility] Healthcare Address [address] [place] [address] Care Team Providers Care Director Of Community Education Name Role Phone Leon Taylor MD Primary Care Prov ider Bhavesh Valdez MD Unavailable [phone] Nolan Herron MD Unavailable [phone] Edward Lovett MD Unavailable Rosanne Chaves NP Unavailable [phone] Reason for Referral * MRI/CAT/PET Scan (Routine) - Closed Specialty Diagnoses / Procedures Referred By Sanya hinojosa Referred To Contact Radiology Diagnoses Pre-op evaluation Severe tricuspid valve regurgitation Nonrheumatic aortic (valve) insufficiency Procedures CTA Heart, Coronary Arteries and Thoracic Aorta with Contrast and without if performed CTA Chest W WO Contrast Rosanne Chaves NP [address] [facility] [address] [place] [address] Phone: tel: fax: [facility] [address] [place] [address] Referral ID Status Reason Start Date Expiration Date Visits Re quested Visits Authorized [id number] Closed 01/03/2025 02/02/2026 1 1 Reason for Visit * Reason Comments Cardiac Valve Problem Severe Tricuspid V alve Regurgitation * Consultation (Routine) - Closed Specialty Diagnoses / Procedures Referred By Contac t Referred To Contact Cardiothoracic Surgery Diagnoses Severe tricuspid valve regurgitation Edward Lovett MD [address] [facility] [address] [place] [address] Phone: tel: fax: Rosanne Chaves NP [address] [facility] [address] [place] [address] Phone: tel: fax: Referral ID Status Reason Start Date Expiration Date V isits Requested Visits Authorized [id number] Closed Specialty Services Required 12/26/2024 01/25/2026 1 1 Encounter Details Date Type Department Care Team (Late st Contact Info) Description 01/03/2025 11:00 AM CDT Office Visit Cardiovascular and Thoracic Surgery [address] [facility] [address] [place] [address] Rosanne Chaves NP [address] [facility] [address] [place], [place] [id number] Urinary tract infection without hematuria, site unspecified (Primary Dx); Pre-op evaluation; Severe tricuspid regurgitation; Severe tricuspid valve regurgitation; Other thrombophilia (HCC); Nonrheumatic aortic (valve) insufficiency Social History Tobacco Use Types Packs/Day Years [...] on file Legal Sex Male 8:52 PM [employer] Gender Identity Not on file Sexual Orientation Not on file documented as of this encounter Last Filed Vital Signs Vital Sign Reading Time Taken Comments Blood Pressure 115/69 01/03/2025 11:09 AM CDT Pulse 86 01/03/2025 11:09 AM CDT Temperature - - Respiratory Rate 18 01/03/2025 11:09 AM CDT Oxygen Saturation 98% 01/03/2025 11:09 AM CDT Inhaled Oxygen Concentration - - Weight 107.9 kg (237 lb 14 oz) 01/03/2025 11:09 AM CDT Height 177.8 cm (5' 10 ) 01/03/2025 11:09 AM CDT Body Mass Index 34.13 01/03/2025 11:09 AM CDT documented in this encounter Patient Instructions * Patient Instructions* Rosanne Chaves NP - 01/03/2025 11:00 AM CDT Your TTVR (Transcatheter Tricuspid Valve Replacement) is scheduled for 01/08 with Roland Villeda & Bony Please go to the lab here at [facility] (Near the main entrance) for pre- op blood work. The orders are under Rosanne Chaves NP. We will call you in the afternoon the day before your procedure to let you know what time to arrive, but plan for 1200. We will review the instructions below at that time. Call me on 01/07 with you daily weight record you are keeping. Remembering to weight in the morning after using the bathroom in the same amount of clothing for accuracy. Nothing to eat midnight. You can have clear liquids until 10 am 01/08 Shower with an antibacterial soap such as dial prior to coming to the hospital. 3. Hold your Eliquis starting 01/06. Your last dose will be 01/05 4. Check in at the surgery check in desk, second floor [facility]. Dental prophylaxis after valve replacement. Remember to discuss with your dentist. Try to avoid dental procedures including routine cleaning for 3 months after valve procedure. Life long you will need to take an antibiotic 1 hour prior to any dental appointment. documented in this encounter Progress Notes * Rosanne Chaves NP - 01/03/2025 11:00 AM CDT Cardiovascular and Thoracic Consult Patient Name: Justus Rodriguez : 1950 Referred by: Edward Lovett MD Date of Visit:01/03/2025 Chief Complaint: Cardiac Valve Problem (Severe Tricuspid Valve Regurgitation ) HPI: I was asked to see Justus Rodriguez a 74 y.o. male patient of Dr. Lovett for severe tricuspid valve regurgitation. He arrived in clinic today with his brother via wheel chair. Justus Rodriguez has a history of Atrial fibrillation, CHF, CAD, hyperlipidemia, hypertension, and pancytopenia secondary to splenomegaly. He endorses fatigue, shortness of breath, dyspnea on exertion - he can only walk 30 feet before requiring a rest, severe bilateral lower extremity edema with weeping leg wounds, and early satiety and abdominal bloating. Endorses NYHA functional class IV symptoms. He was discharged from [facility] on Tuesday where he was admitted for acute on chronic heartfailure with hypervolemia requiring aggressive IV diuresis. He is down 20kg from last appointment. We have discussed the transcatheter tricuspid valve replacement (TTVR) in detail and all of their questions were answered. Today's weight: 107.9kg Weight day of MARCE 12/13: 124.7 kg Weight day of cardiology appointment 12/18: 123.7kg Current Outpatient Medications: acetaminophen ER (TYLENOL) 650 mg 8 hr tablet, Take 1 tablet (650 mg total) by mouth every 8 (eight) hours as needed for pain, Disp: , Rfl: cyanocobalamin (vitamin B-12) 1,000 mcg tablet, Take 1 tablet (1,000 mcg total) by mouth daily, Disp: , Rfl: doxazosin (CARDURA) 8 mg tablet, TAKE 1 TABLET (8 MG TOTAL) BY MOUTH DAILY (Patient taking differently: Take 0.5 tablets (4 mg total) by mouth 2 (two) times a day), Disp: 90 tablet, Rfl: 2 Eliquis 5 mg tablet, TAKE 1 TABLET BY MOUTH TWICE A DAY, Disp: 60 tablet, Rfl: 7 ferrous sulfate 325 mg (65 mg of elemental iron) tablet, Take 1 tablet (325 mg total) by mouth 2 (two) times a day, Disp: , Rfl: folic acid (FOLVITE) 400 mcg tablet, Take 2 tablets (800 mcg total) by mouth daily, Disp: , Rfl: furosemide (LASIX) 40 mg tablet, Take 1 tablet (40 mg total) by mouth 2 (two) times a day, Disp: , Rfl: hydrOXYzine (ATARAX) 10 mg tablet, Take 1 tablet (10 mg total) by mouth every 6 (six) hours as needed for itching, Disp: , Rfl: Jardiance 10 mg tablet, Take 1 tablet (10 mg total) by mouth daily, Disp: , Rfl: loperamide (IMODIUM) 2 mg capsule, , Disp: , Rfl: oxybutynin (DITROPAN) 5 mg tablet, TAKE 1 TAB BY MOUTH DAILY FOR BLADDER, Disp: , Rfl: propranolol LA (INDERAL LA) 120 mg 24 hr capsule, Take 1 capsule (120 mg total) by mouth daily, Disp: , Rfl: tamsulosin (FLOMAX) 0.4 mg extended release capsule, Take 1 capsule (0.4 mg total) by mouth 2 (two)times a day, Disp: , Rfl: 5 Past Medical History: Diagnosis Date Atrial fibrillation (HCC) CHF (congestive heart failure) (HCC) Coronary artery disease Hyperlipidemia Hypertension Pancytopenia Severe tricuspid valve regurgitation Shortness of breath Splenomegaly Past Surgical History: Procedure Laterality Date CARDIAC CATHETERIZATION CORONARY ARTERY BYPASS GRAFT HERNIA REPAIR REPLACEMENT TOTAL KNEE BILATERAL Family History Problem Relation Age of Onset Heart disease Father Review of Systems All systems reviewed with pertinent positives/negatives in HPI, all others negative BP 115/69 (BP Location: Right arm, Patient Position: Sitting) Pulse 86 Resp 18 Ht 177.8 cm (5' 10 ) Wt 107.9 kg (237 lb 14 oz) SpO2 98% BMI 34.13 kg/m?? Physical Exam General Appearance: No acute distress Neck: Examination of jugular veins WNL Respiratory: Lungs clear to auscultation bilaterally Cardiovascular: Regular rate and irregular rhythm with +FRANK Gastrointestinal/ Abdomen: Soft, nontender, and distended Extremities: No clubbing, cyanosis, or 4+ edema bilaterally legs. Lucille boots present Skin: warm and dry Neurologic/ Psychiatric: Alert and oriented x 3 with a grossly normal motor exam Social History: Mr. Rodriguez lives at home alone. His brother helps him with transportation. He has never been a smoker. STS 10/29/24: In media with an Operative Mortality of 11%. Data Review: MARCE 12/13/2024 CONCLUSIONS: 1. Normal global and regional left ventricular systolic function. Ejection Fraction is estimated velvet 60 %. Normal left ventricular cavity size. 2. Mild-moderate enlargement of the right ventricle. Moderate right ventricular hypokinesis. 3. There is moderate enlargement of the left atrium. 4. There is marked enlargement of the right atrium. Atrial septum bowed toward the left, consistentwith elevated right atrial pressures. 5. Normal appearance of the tricuspid valve. There is mild pulmonary hypertension. There is torrential tricuspid regurgitation. TTE 11/09/2024 CONCLUSIONS: 1. Normal global and regional left ventricular systolic function. Ejection Fraction (Simpsons) is measured at 60 %. 2. Mild right ventricular dysfunction. Moderate enlargement of right ventricle. 3. Torrential tricuspid regurgitation. 4. Normal appearing pericardial thickness. No significant pericardial effusion. CT TAVR 11/09/2024 Narrative & Impression IMPRESSION: 1. Measurements as above 2. Left [...] suggestive of hepatic cirrhosis with portal hypertension. Assessment/Plan Mr. Rodriguez 74 yo with severe symptomatic tricuspid valve regurgitation. Plan for TTVR was reviewed with Dr. Villeda, plan for 01/08/2025. Plan for R/LHC on Tuesday. Repeat CTA of chest - due to significant change in weight after aggressive IV diuresis, CTA will beobtained to ensure tricuspid annulus size is unchanged for appropriate EVOQUE sizing. Patient encouraged to hydrate for the next 24 hours given contrast for CTA today. He has not had a cardiac catheterization in the past year and he has significant concerns on TAVR CT with mention of hepatic cirrhosis and splenomegaly. Increased concerns for urinary tract infection given his recent hospitalization and pancytopenia. UA will be obtained at [facility] today. Patient to perform daily weights at home and will call office on Tuesday with logs to evaluate for diuretic stability. Diagnoses and all orders for this visit: Urinary tract infection without hematuria, site unspecified (Primary) - Urinalysis reflex to microscopic and culture Urine, clean voided; Future Pre-op evaluation - Pro B-type natriuretic peptide; Future - CBC with auto differential; Future - Comprehensive metabolic panel; Future - Protime-INR; Future - Type and screen; Future - CTA Heart, Coronary Arteries and Thoracic Aorta with Contrast and without if performed; Future - Urinalysis reflex to microscopic and culture Urine, clean voided; Future Severe tricuspid regurgitation - Pro B-type natriuretic peptide; Future - CBC with auto differential; Future - Comprehensive metabolic panel; Future - Protime-INR; Future - Type and screen; Future Severe tricuspid valve regurgitation - Ambulatory referral to Cardiothoracic Surgery - CTA Heart, Coronary Arteries and Thoracic Aorta with Contrast and without if performed; Future Other thrombophilia (HCC) Nonrheumatic aortic (valve) insufficiency - CTA Heart, Coronary Arteries and Thoracic Aorta with Contrast and without if performed; Future Rosanne Chaves NP Cardiothoracic Surgery [facility] documented in this encounter Plan of Treatment Upcoming Encounters Date Type Department Care Team (Latest Contact Info) Description 01/08/2025 5:00 PM CDT Hospital Encounter [facility] Operating Room [address] [place] [phone] Edward Lovett MD [address] [facility] [address] [address] Nonrheumatic tricuspid valve regurgitation 01/08/2025 5:00 PM CDT - 01/08/2025 7:30 PM CDT Surgery [facility] Operating Room [address] [place] [phone] Edward Lovett MD [address] [facility] [address], [place] [id number] Transcatheter Tricuspid Valve Implant (TTVI/TTVR) Scheduled Orders Name Type Priority Associated Diagnoses Orde r Schedule Urinalysis reflex to microscopic and culture Urine, clean voided Microbiology Routine Pre-op evaluation Urinary tract infection without hematuria, site unspecified Expected: 01/04/2025, Expires: 01/04/2026 documented as of this encounter Results * CTA Heart, Coronary [...] IMG CT PROCEDURES Final R esult * Type and screen (01/03/2025 12:43 PM CDT) [facility] Angelina, indirect Negative ABO Rh A Negative [facility] Blood 01/03/2025 12:4 3 PM CDT 01/03/2025 1:14 PM CDT Narrative [facility] - 01/03/2025 2:02 PM CDT Has the patient had Daratumumab or Isatuximab in the past 6 months?->Unknown us Rosanne Chaves NP LAB BLOOD BANK TEST ORDER NEY Final Result [facility] [address] Department [place] [address] * (ABNORMAL) Protime-INR (01/03/2025 12:43 PM CDT) Pathologist [facility] PT 14.3(H) 9.7 - 13.0 sec INR 1.32(H) 0.90 - 1.20 [facility] Comment: Interpretive data Oral anticoagulant therapeutic ranges: Venous thromboembolism prophylaxis or treatment: 2.0-3.0 CARDIOLOGY Standard range: 2.0-3.0 High-intensity range: 2.5-3.5 Refer to indication-specific guidelines for appropriate target ranges for prosthetic heart valve replacement. Current interpretive data was last revised on 2019. Blood 01/03/2025 12:4 3 PM CDT 01/03/2025 1:08 PM CDT us Rosanne Chaves NP LAB BLOOD ORDERABLES Nathalie chu Result [facility] [address] Department [place] [address] * (ABNORMAL) Comprehensive metabolic panel (01/03/2025 12:43 PM CDT) Sodium 137 135 - 145 mmol/L Potassium, pl 4.1 3.3 - 4.9 mmol/L [facility] Chloride 97 97 - 110 mmol/L [facility] CO2 29 22 - 32 mmol/L [facility] Anion gap 11 2 - 15 mmol/L [facility] BUN 43(H) 6 - 25 mg/dL [facility] Creatinine 1.90(H) 0.80 - 1.30 mg/dL [facility] Glucose 106 70 - 199 mg/dL [facility] Comment: Interpretive Data Fasting glucose >/= 126 [...] classification and Diagnosis of Diabetes Diabetes Care 2022; 46: S19-S40. Current interpretive data was last revised 2022. Calcium 8.9 8.5 - 10.3 mg/dL [facility] Bilirubin, total 0.5 0.1 - 1.2 mg/dL [facility] Protein, pl 7.3 6.5 - 8.5 g/dL [facility] Albumin 3.8 3.5 - 5.0 g/dL [facility] Alk phos 62 40 - 130 Units/L [facility] ALT 15 7 - 55 Units/L [facility] AST 24 10 - 50 Units/L [facility] Blood 01/03/2025 12:4 3 PM CDT 01/03/2025 1:08 PM CDT Rosanne Chaves NP LAB BLOOD ORDERABLES Nathalie chu Result [facility] [address] Department [place] [address] * (ABNORMAL) CBC with auto differential (01/03/2025 12:43 PM CDT) WBC 1.78(L) 3.80 - 9.90 K/cumm Hgb 9.1(L) 13.0 - 17.5 g/dL [facility] Hct 29.5(L) 38.9 - 50.3 % [facility] Plt 100(L) 150 - 400 K/cumm [facility] MPV 10.3 9.1 - 12.3 fL [facility] RBC 3.34(L) 4.30 - 5.80 M/cumm [facility] MCV 88.3 81.3 - 96.4 fL [facility] MCH 27.2 27.1 - 33.3 pg [facility] MCHC 30.8(L) 32.3 - 35.7 g/dL [facility] RDW CV 17.3(H) 11.1 - 14.9 % [facility] RDW SD 55.8(H) 35.7 - 48.1 fL [facility] NRBC abs 0.00 0.00 - 0.01 K/cumm [facility] Blood 01/03/2025 12:4 3 PM CDT 01/03/2025 1:08 PM CDT us Rosanne Chaves NP LAB BLOOD ORDERABLES Nathalie l Result [facility] [address] Department [place] [address] * (ABNORMAL) Pro B-type natriuretic peptide (01/03/2025 [...] 01/03/2025 1:08 PM CDT Rosanne Saundra Chaves [employer]S PRODUCT ANALYST LAB BLOOD ORDERABLES Nathalie vlad Result [facility] [address] Department [place] [address] documented in this encounter Visit Diagnoses Diagnosis Nonrheumatic tricuspid valve regurgitation- Primary Urinary tract infection without hematuria, site unspecified- Primary Pre-op evaluation Severe tricuspid regurgitation Severe tricuspid valve regurgitation Other thrombophilia (HCC) Nonrheumatic aortic (valve) insufficiency Pre-op evaluation Severe tricuspid regurgitation Pre-op evaluation Severe tricuspid valve regurgitation Nonrheumatic aortic (valve) insufficiency Nonrheumatic tricuspid valve regurgitation documented in this encounter Discontinued Medications Medication Sig Discontinue Reason Start Date End Da te lisinopril (PRINIVIL,ZESTRIL) 20 mg tablet Take 1 tablet (20 mg total) by mouth daily Patient Reported 01/03/2019 01/03/2025 losartan (COZAAR) 50 mg tablet Take 1 tablet (50 mg total) by mouth daily Patient Reported 01/03/2025 metOLazone (ZAROXOLYN) 2.5 mg tablet TAKE 1 TABLET A DAY ONLY 3 DAYS OF THE WEEK. Alternate therapy 09/10/2021 01/03/2025 documented as of this encounter Historical Medications * This list may reflect changes made after this encounter. hydrOXYzine (ATARAX) 10 mg tablet Take 1 tablet (10 mg total) by mouth every 6 (six) hours as needed for itching 12/14/2024 Jardiance 10 mg tablet Take 1 tablet (10 mg total) by mouth daily 12/27/2024 added in this encounter Orders Outpatient Referral Count Last Ordered Date Fir st Ordered Date AMB REFERRAL TO CARDIOTHORACIC SURGERY 1 documented in this encounter Care Teams Director Of Community Education Relationship Specialty Start Date End Date Leon Taylor MD [address] [place] [address] PCP - General 12/03/16 Bhavesh Valdez MD [address] [address] Consulting Physician Cardiology 08/26/23 Nolan Herron MD [address] [place] [address] Referring Physician Hematology 08/26/23 Edward Lovett MD [address] [place], [place] [id number] Referring Physician Cardiology 12/26/24 Rosanne Chaves NP [address] [place] [address] Nurse Practitioner Cardiothoracic Surgery 12/26/24 documented as of this encounter
--- OUTSIDE RECORDS SUMMARY | 2025-01-05 14:50 | XMS_ITS | Referral Summary ---
Author Organization [facility] [address] [place] [address] Care Team Providers Care Substance Abuse Clinician Name Role Phone Leon Taylor MD Primary Care Prov ider Bhavesh Valdez MD Unavailable [phone] Nolan Herron MD Unavailable [phone] Edward Mckeon MD Unavailable Rosanne Chaves NP Unavailable [phone] Encounters Date Type Department Care Team Description 01/03/2025 12:56 PM CDT - 01/03/2025 11:59 PM CDT Hospital Encounter [facility] - Imaging [address] [place] [address] Pre-op evaluation; Severe tricuspid valve regurgitation; Nonrheumatic aortic (valve) insufficiency Discharge Disposition: Discharge to home or self care 01/03/2025 11:55 AM CDT Lab [facility] Outpatient Lab [address] [place] [address] Pre-op evaluation; Severe tricuspid regurgitation 01/03/2025 11:00 AM CDT Office Visit Cardiovascular and Thoracic Surgery [address] [place] [address] Rosanne Chaves NP Urinary tract infection without hematuria, site unspecified (Primary Dx); Pre-op evaluation; Severe tricuspid regurgitation; Severe tricuspid valve regurgitation; Other thrombophilia (HCC); Nonrheumatic aortic (valve) insufficiency 12/31/2024 Orders Only [facility] Medical [facility] Cardiology [address] [facility] [address] [place] [phone] Marly Benedict MD 12/28/2024 Telephone [facility] Cardiology [address] [place] [address] [address] [place] [phone] Bhavesh Valdez MD 12/26/2024 Orders Only [facility] Cardiology [address] [place] [address] [address] [place] [phone] Hyun Faria MD 12/26/2024 Documentation Cardiovascular and Thoracic Surgery [address] [place] [address] Aziza Kumari 12/26/2024 Documentation Cardiovascular and Thoracic Surgery [address] [place] [address] Aziza Kumari 12/20/2024 Orders Only [facility] Cardiology [address] [place] [address] [address] [place] [phone] Hyun Faria MD 12/18/2024 Orders Only [facility] Health Information Management [address] [place] [address] Hyun Faria MD 12/18/2024 11:00 AM CDT Office Visit [facility] Cardiology [address] [place] [address] [address] [place] [phone] Liliana Bynum NP Acute on chronic right-sided congestive heart failure (HCC) (Primary Dx) 12/17/2024 Telephone [facility] Cardiology [address] [place] [address] [address] [place] [phone] Bhavesh Valdez MD 12/13/2024 12:06 PM CDT Anesthesia Event [facility] [address] [place] [address] Denia Olivares MD Fitterer, Morgan Elisabeth, CRNA 12/13/2024 10:24 AM CDT - 12/13/2024 11:59 PM CDT Hospital Encounter [facility] [address] [place] [phone] Bhavesh Washington MD Nonrheumatic tricuspid valve regurgitation Discharge Disposition: Discharge to home or self care 12/10/2024 Telephone [facility] Cardiology [address] [place] [address] [address] [place] [phone] Edward Mckeon MD MARCE Tricuspid Scheduling 12/03/2024 Results Follow-Up [facility] Cardiology [address] [place] [address] [address] [place] [phone] Veena Balderas MA 11/09/2024 10:00 AM PURCHASING ASSISTANT - 11/09/2024 11:59 PM PURCHASING ASSISTANT Hospital Encounter [facility] - [facility] [address] [place] [phone] Edward Mckeon MD Dysphagia, unspecified type Discharge Disposition: Discharge to home or self care 11/09/2024 10:27 AM PURCHASING ASSISTANT - 11/09/2024 11:59 PM PURCHASING ASSISTANT Hospital Encounter [facility] [address] [place] [phone] Edward Mckeon MD Nonrheumatic tricuspid valve regurgitation; Abnormal result of cardiovascular function study, unspecified Discharge Disposition: Discharge to home or self care 11/09/2024 3:00 PM PURCHASING ASSISTANT - 11/09/2024 11:59 PM PURCHASING ASSISTANT Hospital Encounter [facility] [address] [place] [phone] Nonrheumatic tricuspid valve regurgitation Discharge Disposition: Discharge to home or self care 11/09/2024 2:00 PM PURCHASING ASSISTANT - 11/09/2024 11:59 PM PURCHASING ASSISTANT Hospital Encounter [facility] OP Cardiac Testing [address] [place] [address] [address] [place] [address] Nonrheumatic tricuspid valve regurgitation Discharge Disposition: Discharge to home or self care 10/29/2024 Telephone [facility] Cardiology [address] [place] [address] [address] [place] [phone] Edward Mckeon MD SCHEDULE TRICUSPID MARCE 10/29/2024 10:00 AM PURCHASING ASSISTANT Office Visit [facility] Cardiology [address] [place] [address] [address] [place] [address] Edward Mckeon MD Persistent atrial fibrillation (HCC) (Primary Dx); Nonrheumatic tricuspid valve regurgitation; Abnormal result of cardiovascular function study, unspecified; Chronic coronary artery disease; Primary hypertension; Mixed hyperlipidemia from Last 3 Months Allergies No known active allergies Medications tamsulosin [...] (05/25/2019): Added automatically from request for surgery [id number] Assessment & Plan (08/25/2023 5:27 PM PURCHASING ASSISTANT): The patient is status post catheter ablation [...] with atrial fibrillation: a report of the [employer] Association Task Force on Practice Guidelines [...] 02/16/2017 Assessment & Plan (08/25/2023 5:28 PM PURCHASING ASSISTANT): The patient has atrial fibrillation with an elevated [id number] score (3). Based on this, systemic anticoagulation [...] of Atrial Fibrillation: A Report of the [place] [employer]/ [place] [employer] Joint Committee on Clinical Practice Guidelines. Circulation 2022;148: e42 Class IIA: In patients with AF, a moderate to high risk of stroke ([id number] score >=2), and a contraindication to long-term oral anticoagulation due to a nonreversible cause, percutaneous LAAO (pLAAO) is reasonable Hypertension 10/15/2014 Chronic coronary artery disease 09/30/2014 Resolved Problems Problem Noted Date Diagnosed Date Resolved Date A-fib 02/07/2024 03/21/2024 Paroxysmal atrial fibrillation ([facility]/HCC) 03/30/2019 06/29/2022 Overview (03/30/2019): Added automatically from request for surgery [id number] Atrial fibrillation ([facility]) [I48.91] 02/16/2017 06/29/2022 Immunizations Immunization Administration [...] on file Legal Sex Male 8:52 PM PURCHASING ASSISTANT Gender Identity Not on file Sexual Orientation [...] Description 01/08/2025 5:00 PM CDT Hospital Encounter [facility] Operating Room [address] [place] [phone] Edward Mckeon MD [address] [facility] [address], [place] [address] Nonrheumatic tricuspid valve regurgitation 01/08/2025 5:00 PM CDT - 01/08/2025 7:30 PM CDT Surgery [facility] Operating Room [address] [place] [phone] Edward Mckeon MD [address] [facility] [address], [place] [address] Transcatheter Tricuspid Valve Implant (TTVI/TTVR) Medical Devices Implanted Type Area Executive Search Consultant Device Identifier Shelf Expiration Date Model / Serial / Lot [employer] Brad Device Closure 27mm Lt Watchman Flx Pro Cardiac Strl La [id number] - [id number] - [id number] Implanted:Qty: 1 on 02/07/2024 by Caleb Bonilla MD at [facility] Left Atrial Appendage Occluder [employer] Brad 12/07/2026 [id number] / [id number] / [id number] [employer] Vascade Mvp 6-12fr Venous Closure [id number] - [id number] - [id number] Implanted:Qty: 1 on 02/07/2024 by Caleb Bonilla MD at [facility] [employer] 11/23/2025 [id number] / [id number] / [id number] Procedures Procedure Name Priority Date/Time Associated [...] FUNCTION TEST (PFT) Routine 11/09/2024 3:58 PM PURCHASING ASSISTANT Nonrheumatic tricuspid valve regurgitation TRANSTHORACIC ECHO (TTE) COMPLETE W DOPPLER/CF W CONTRAST Routine 11/09/2024 3:43 PM PURCHASING ASSISTANT Nonrheumatic tricuspid valve regurgitation FL ESOPHAGRAM, DOUBLE CONTRAST Schedule Routine, Read Routine (OP Routine) 11/09/2024 12:16 PM PURCHASING ASSISTANT Dysphagia, unspecified type CT TAVR Schedule Routine, Read Routine (OP Routine) 11/09/2024 11:50 AM PURCHASING ASSISTANT Nonrheumatic tricuspid valve regurgitation Abnormal result of cardiovascular function study, unspecified POCT CREATININE FOR CONTRAST EVALUATION Routine 11/09/2024 10:46 AM PURCHASING ASSISTANT COMPREHENSIVE METABOLIC PANEL Routine 11/06/2024 11:05 AM PURCHASING ASSISTANT Nonrheumatic tricuspid valve regurgitation CBC WITH AUTO DIFFERENTIAL Routine 11/06/2024 11:05 AM PURCHASING ASSISTANT Nonrheumatic tricuspid valve regurgitation from Last 3 [...] it. Electronically signed by: Moshe Anthony M.D. us Rosanne Chaves NP IMG CT PROCEDURES Final [...] NP LAB BLOOD ORDERABLES Nathalie chu Result [facility] [address] Department [place] [address] * (ABNORMAL) Differential, auto (01/03/2025 12:43 PM CDT) Neutrophil abs 1.00(L) 1.50 - 6.50 K/cumm Imm gran abs 0.00 0.00 - 0.10 K/cumm [facility] Lymphocyte abs 0.49(L) 0.80 - 3.30 K/cumm [facility] Monocyte abs 0.20 0.20 - 0.80 K/cumm [facility] Eosinophil abs 0.08 0.00 - 0.50 K/cumm [facility] Basophil abs 0.01 0.00 - 0.10 K/cumm [facility] Neutrophil pct 56.2 % [facility] Comment: Interpretive Data Percent cell count reference ranges are not reported, since discordance with absolute values may lead to misinterpretation of CBC data. Current Interpretive Data was last revised on 2017. Imm gran pct 0.0 % [facility] Comment: Interpretive Data Percent cell count reference ranges are not reported, since discordance with absolute values may lead to misinterpretation of CBC data. Current Interpretive Data was last revised on 2017. Lymphocyte pct 27.5 % [facility] Comment: Interpretive Data Percent cell count reference ranges are not reported, since discordance with absolute values may lead to misinterpretation of CBC data. Current Interpretive Data was last revised on 2017. Monocyte pct 11.2 % [facility] Comment: Interpretive Data Percent cell count reference ranges are not reported, since discordance with absolute values may lead to misinterpretation of CBC data. Current Interpretive Data was last revised on 2017. Eosinophil pct 4.5 % [facility] Comment: Interpretive Data Percent cell count reference ranges are not reported, since discordance with absolute values may lead to misinterpretation of CBC data. Current Interpretive Data was last revised on 2017. Basophil pct 0.6 % [facility] Comment: Interpretive Data Percent cell count reference ranges are not reported, since discordance with absolute values may lead to misinterpretation of CBC data. Current Interpretive Data was last revised on 2017. Blood 01/03/2025 12:4 3 PM CDT 01/03/2025 1:08 PM CDT Rosanne Chaves NP LAB BLOOD ORDERABLES Nathalie l Result Performing Organization Address [facility] Co de Phone Number [facility] [address] Department [place] [address] * (ABNORMAL) Pro B-type natriuretic peptide (01/03/2025 [...] Heart J. 2006:27:330-337. 2. Chris RW, Malcolm ALBRIGHT. J. AM Elle Cardiol: Cardiovasc Imag. 2009;2: 216- 225. Interpretive Data Last Revised Date: 2018. Blood 01/03/2025 12:4 3 PM CDT 01/03/2025 1:08 PM CDT Rosanne Chaves NP LAB BLOOD ORDERABLES Nathalie l Result Performing Organization Address [facility] Co de Phone Number [facility] [address] Department [place] [address] * (ABNORMAL) CBC with auto differential (01/03/2025 12:43 PM CDT) [facility] WBC 1.78(L) 3.80 - 9.90 K/cumm Hgb 9.1(L) 13.0 - 17.5 g/dL [facility] Hct 29.5(L) 38.9 - 50.3 % [facility] Plt 100(L) 150 - 400 K/cumm [facility] MPV 10.3 9.1 - 12.3 fL [facility] RBC 3.34(L) 4.30 - 5.80 M/cumm [facility] MCV 88.3 81.3 - 96.4 fL [facility] MCH 27.2 27.1 - 33.3 pg [facility] MCHC 30.8(L) 32.3 - 35.7 g/dL [facility] RDW CV 17.3(H) 11.1 - 14.9 % [facility] RDW SD 55.8(H) 35.7 - 48.1 fL [facility] NRBC abs 0.00 0.00 - 0.01 K/cumm [facility] Blood 01/03/2025 12:4 3 PM CDT 01/03/2025 1:08 PM CDT us Rosanne Chaves NP LAB BLOOD ORDERABLES Nathalie chu Result [facility] [address] Department [place] [address] * (ABNORMAL) Protime-INR (01/03/2025 12:43 PM CDT) [facility] PT 14.3(H) 9.7 - 13.0 sec INR 1.32(H) 0.90 - 1.20 [facility] Comment: Interpretive data Oral anticoagulant [...] ORDERABLES Nathalie l Result Performing Organization Address [facility] Co de Phone Number [facility] [address] [facility] [employer] [place], [place] [id number] * Type and screen (01/03/2025 12:43 PM CDT) [facility] Angelina, indirect Negative ABO Rh A Negative [facility] Blood 01/03/2025 12:4 3 PM CDT 01/03/2025 1:14 PM CDT Narrative [facility] - 01/03/2025 2:02 PM CDT Has the patient had Daratumumab or Isatuximab in the past 6 months?->Unknown Rosanne Chaves NP LAB BLOOD BANK TEST ORDER NEY Final Result Performing Organization Address [facility] de Phone Number [facility] [address] [facility] [employer] [place], [place] [id number] * (ABNORMAL) Comprehensive metabolic panel (01/03/2025 12:43 PM CDT) [facility] Sodium 137 135 - 145 mmol/L Potassium, pl 4.1 3.3 - 4.9 mmol/L [facility] Chloride 97 97 - 110 mmol/L [facility] CO2 29 22 - 32 mmol/L [facility] Anion gap 11 2 - 15 mmol/L [facility] BUN 43(H) 6 - 25 mg/dL [facility] Creatinine 1.90(H) 0.80 - 1.30 mg/dL [facility] Glucose 106 70 - 199 mg/dL [facility] Comment: Interpretive Data Fasting glucose [...] 2022. Calcium 8.9 8.5 - 10.3 mg/dL [facility] Bilirubin, total 0.5 0.1 - 1.2 mg/dL [facility] Protein, pl 7.3 6.5 - 8.5 g/dL [facility] Albumin 3.8 3.5 - 5.0 g/dL [facility] Alk phos 62 40 - 130 Units/L [facility] ALT 15 7 - 55 Units/L [facility] AST 24 10 - 50 Units/L [facility] Blood 01/03/2025 12:4 3 PM CDT 01/03/2025 1:08 PM CDT Rosanne Chaves NP LAB BLOOD ORDERABLES Nathalie l Result [facility] [address] Department [place] [address] * Cardiology Document Scan (12/27/2024 3:10 PM [...] CDT) Anatomical Region Laterality Modality Other Result [facility] Hyun Faria MD CV CARDIAC SERVICES PROCEDU RES Final Result * Cardiology Document Scan (12/19/2024 4:57 PM CDT) Anatomical Region Laterality Modality Other Result [facility] Hyun Faria MD CV CARDIAC SERVICES PROCEDU RES Final Result * Cardiology Document Scan (12/18/2024 4:56 PM CDT) Anatomical Region Laterality Modality Other Result [facility] Hyun Faria MD CV CARDIAC SERVICES PROCEDU RES Final Result * Cardiology Document Scan (12/18/2024) Anatomical Region Laterality Modality Other Result [facility] Hyun Faria MD CV CARDIAC SERVICES PROCEDU RES Final Result * TRANSESOPHAGEAL ECHO (MARCE) W DOPPLER/CF WO CONTRAST (12/13/2024 12:37 PM CDT) LV EF 60 % CONS SCIMAGE Anatomical Region Laterality Modality Echocardiography 12/13/2024 12:0 6 PM CDT Narrative 12/13/2024 1:19 PM CDT [facility] [address] [place] [address] TRANSESOPHAGEAL ECHOCARDIOGRAM Patient Name: KAMRON RODRIGUEZ : 1950 (74y 7m) Gender: M Study Date: 12/13/2024 12:06:09 PM Ht(Inch): 70 Wt(Lb): 252.01 BSA: 2.38 Head Piece Assembler: FABI Location: [facility] Order Provider: EDWARD MCKEON BMI: 36.16 BP: [...] Procedure Note Bhavesh Washington MD - 12/13/2024 [facility] [address] [place] [address] TRANSESOPHAGEAL ECHOCARDIOGRAM Patient Name: KAMRON RODRIGUEZ : 1950 (74y 7m) Gender: M Study Date: 12/13/2024 12:06:09 PM Ht(Inch): 70 Wt(Lb): 252.01 BSA: 2.38 Head Piece Assembler: FABI Location: [facility] Order Provider: EDWARD MCKEON BMI: 36.16 BP: [...] Washington MD mobap 12/13/2024 1:18:57 PM CDT Edward Mckeon MD [...] ORDERABLES Final Resul t Performing Organization Address [facility] Co de Phone Number [facility] [address] [place] [address] * (ABNORMAL) Protime-INR (12/11/2024 1:48 PM CDT) INR 1.1 [facility] Comment: Reference Range 0.9-1.1 Moderate-intensity Warfarin Therapy 2.0-3.0 Higher-intensity Warfarin Therapy 3.0-4.0 PT 12.2(H) 9.0 - 11.5 sec [facility] Comment: For additional information, please refer to http://education.SalesPredict/faq/JDZ581 (This link is being provided for informational/ educational purposes only.) Blood 12/11/2024 1:48 PM CDT 12/11/2024 1:48 PM CDT us Edward Mckeon MD LAB BLOOD ORDERABLES Final Resul t [employer] [facility] [address] [place] [address] [place] [address] * (ABNORMAL) Basic metabolic panel (12/11/2024 1:48 [...] BLOOD ORDERABLES Final Resul t [facility] [address] [place] [address] * Pulmonary Function Test - (11/09/2024 3:58 PM PURCHASING ASSISTANT) Anatomical Region Laterality Modality PFT 11/09/2024 3:56 PM PURCHASING ASSISTANT Narrative 11/29/2024 4:32 PM CDT Table formatting from the original result was not included. [facility] BOARD CERTIFIED IN PULMONARY, CRITICAL CARE, AND SLEEP MEDICINE Merissa Jarrell MD [address] [place] [address] MD Chaz Ching MD Office [phone] Dorian Christie MD PULMONARY FUNCTION TESTING 6 [...] Certified in Pulmonary and Critical Care Medicine [phone] Please note that our PFT lab has [...] W DOPPLER/CF W CONTRAST (11/09/2024 3:43 PM PURCHASING ASSISTANT) Anatomical Region Laterality Modality Ultrasound 11/09/2024 2:03 PM PURCHASING ASSISTANT Narrative 11/09/2024 5:48 PM PURCHASING ASSISTANT [facility] Outpatient Cardiac Testing Center [address] [place] [address] ECHOCARDIOGRAM Patient Name: KAMRON RODRIGUEZ : 1950 (74y 6m) Gender: M Study Date: 11/09/2024 02:03:35 PM Ht(Inch): 70 Wt(Lb): 251.99 BSA: 2.38 Head Piece Assembler: Location: [address] Order Provider: EDWARD MCKEON [...] By: Edward Mckeon MD 11/09/2024 5:47:59 PM PURCHASING ASSISTANT Procedure Note Edward Mckeon MD - 11/09/2024 [facility] [address] [place] [address] ECHOCARDIOGRAM Patient Name: KAMRON RODRIGUEZ : 1950 (74y 6m) Gender: M Study Date: 11/09/2024 02:03:35 PM Ht(Inch): 70 Wt(Lb): 251.99 BSA: 2.38 Head Piece Assembler: Location: [address] Order Provider: EDWARD MCKEON [...] By: Edward Mckeon MD 11/09/2024 5:47:59 PM PURCHASING ASSISTANT Edward Mckeon MD CV ECHO PROCEDURES Final Result * FL Esophagram, Double Contrast (11/09/2024 12:16 PM PURCHASING ASSISTANT) Anatomical Region Laterality Modality Body N/A Radio Fluoroscop y 11/09/2024 1:16 PM PURCHASING ASSISTANT Impressions 11/09/2024 1:51 PM PURCHASING ASSISTANT 1. Trace laryngeal penetration. No evidence of [...] Anil Randolph M.D. Narrative 11/09/2024 1:51 PM PURCHASING ASSISTANT EXAMINATION: DOUBLE CONTRAST BARIUM ESOPHAGRAM 11/09/2024. HISTORY: [...] Result * CT TAVR (11/09/2024 11:50 AM PURCHASING ASSISTANT) Anatomical Region Laterality Modality Chest N/A Computed Tomogra phy 11/09/2024 2:02 PM PURCHASING ASSISTANT Impressions 11/09/2024 3:56 PM PURCHASING ASSISTANT 1. Measurements as above 2. Left atrial [...] Popeye Becker M.D. Narrative 11/09/2024 3:56 PM PURCHASING ASSISTANT EXAMINATION: Heart CT and CTA abdomen and [...] creatinine for contrast evaluation (11/09/2024 10:46 AM PURCHASING ASSISTANT) Creatinine, POC 2.0(A) 0.6 - 1.5 mg/dL Comment:eGFR: 35 Blood 11/09/2024 10:4 6 AM PURCHASING ASSISTANT us Edward Mckeon MD POINT OF CARE TEST ORDERABLES Fi nal Result * (ABNORMAL) CBC with auto differential (11/06/2024 11:05 AM PURCHASING ASSISTANT) WBC 1.9(L) 3.8 - 10.8 Thousand/u L [...] [facility] Blood 11/06/2024 11:0 5 AM PURCHASING ASSISTANT 11/06/2024 11:05 AM PURCHASING ASSISTANT us Edward Bony MALLOY LAB BLOOD ORDERABLES Final Resul t [facility] [address] [place] [address] * (ABNORMAL) Comprehensive metabolic panel (11/06/2024 11:05 AM PURCHASING ASSISTANT) Glucose 102(H) 65 - 99 mg/dL [facility] Blood 11/06/2024 11:0 5 AM PURCHASING ASSISTANT 11/06/2024 11:05 AM PURCHASING ASSISTANT us Edward Mckeon MD LAB BLOOD ORDERABLES Final Resul t [facility] [address] [place] [address] from Last 3 Months Insurance [facility] Member Subscriber Plan / Payer (Ef fective for All Dates) Name:Kamron Rodriguez Relation to Subscriber:Self Name:Kamron Rodriguez Payer ID:[id number] Group ID:[id number] Type:COMMERCIAL Address: [place] [id number] MEDICARE MEDICARE MEDICARE COMMERCIAL GENERIC [facility] MEDICARE [facility] Advance Directives For more information, please contact: [phone] * Full Code (Latest Code Status on File) Date Activated Date Inactivated Comments 2019 10:44 AM 04/27/2019 5:09 PM Care Teams Substance Abuse Clinician Relationship Specialty Start Date End Date Leon Taylor MD [address] [place] [address] PCP - General 12/03/16 Bhavesh Valdez MD [address] [place] [address] Consulting Physician Cardiology 08/26/23 Nolan Herron MD [address] [place] [phone] Referring Physician Hematology 08/26/23 Edward Mckeon MD [address] [place] [address] Referring Physician Cardiology 12/26/24 Rosanne Chaves NP [address] [place] [address] Nurse Practitioner Cardiothoracic Surgery 12/26/24
--- OUTSIDE RECORDS SUMMARY | 2025-01-05 14:50 | XMS_ITS | Clinical Summary ---
Author Organization [facility] Christo fowler Charis Address [address] [place] [address] Care Team Providers Care Engineer Internship Name Role Phone Leon Taylor MD Primary Care Provider +1- [phone] Allergies No known active allergies Medications Eliquis [...] Date Type Department Care Team Description 12/18/2024 External Device Data STL ABSTRACTION Provider, Abstract 12/11/2024 4:15 PM CDT Telephone Check Up [facility] Oncology and Hematology - Jem [address] [place] [address] Nolan Herron MD 12/11/2024 External Device Data STL ABSTRACTION Provider, Abstract 12/10/2024 Orders Only [facility] Oncology and Hematology - Jem [address] [place] [address] Nolan Herron MD 11/27/2024 1:15 PM CDT Office Visit [facility] Oncology and Hematology [facility] [address] [place] [address] Nolan Herron MD Chronic anemia (Primary Dx); Mass of breast, unspecified laterality 11/21/2024 External Device Data STL ABSTRACTION Provider, Abstract 11/21/2024 Orders Only [facility] Oncology and Hematology [address] [place] [address] Nolan Herron MD 11/12/2024 External Device Data [...] Description 06/17/2025 10:15 AM CDT Office Visit [facility] Oncology and Hematology - Jem [address] [facility] [facility] [address] [place] [address] Nolan Herron MD [address] [facility] [address] [place] [address] Health Maintenance Due Date Last Done Comments DTAP/TDAP/TD VACCINES (1 - Tdap) 1968 PNEUMOCOCCAL VACCINE 50+ YEA RS (1 of 2 - PCV) 1968 FIT-DNA Q 3 years 1994 FIT/FOBT [...] Anatomical Region Laterality Modality Breast Bilateral Ultrasound Nolan Herron MD US ORDERABLES Final Result * BASIC METABOLIC PANEL (11/19/2024 4:09 PM CDT) Blood us Nolan Herron MD CHEMISTRY ORDERABLES Final Resu lt from Last 3 Months Insurance [employer] SU[employer] MEDICARE PART A AND B Care Teams Engineer Internship Relationship Specialty Start Date End Date Leon Taylor MD PCP - General Family Practice 04/22/23
== END 2025-01-04 15:07 | disposition home or self-care (01) ==
LOC: ANHLAB 15:12
PROVIDERS: PCP Family Medicine Adolescent Medicine
DX: N39.0 Urinary tract infection, site not specified (principal); Z01.818 Encounter for other preprocedural examination
CPT/HCPCS: 81001; 87086; 87181

== ENCOUNTER 2025-02-28 09:00 | Outpatient (RCR) | payer MEDICARE, SELFPAY ==
[2025-01-01 12:05] VITALS: BMI 33.7
== END 2025-04-01 23:59 | disposition home or self-care (01) ==
LOC: ANHWOC 09:00
PROVIDERS: PCP Family Medicine Adolescent Medicine; Visit Provider Family Medicine Adolescent Medicine
DX: I87.8 Other specified disorders of veins (principal)
CPT/HCPCS: 99213; 99214; 99215; A9270; G0463

== ENCOUNTER 2025-03-22 10:53 | Outpatient (CLI) | payer MEDICARE, SELFPAY ==
--- OUTSIDE RECORDS SUMMARY | 2025-03-22 10:57 | XMS_ITS | Clinical Summary ---
Author Organization [facility] Address [address] [place] [address] Care Team Providers Care Insights Strategist Name Role Phone Leon Taylor MD Primary Care Provider + Source Comments [facility],non-owned Affiliates and Associated Physician Practices is amultiple site organization consisting of ambulatory clinics and hospital sitesin [place], [place], [place] and [place]. This disclosure is being madepursuant to the Care Everywhere program and may not contain all information available regarding this patient. Last updated 18.[facility] Social History Tobacco Use Types Packs/Day Years [...] season) 2024 DEPRESSION SCREENING 09/05/2024 INFLUENZA VACCINE (#1) 2025 HEPATITIS B VACCINE Aged Out No [...] fective for All Dates) Name:Kamron Rodriguez Member ID:[id number] Relation to Subscriber:Self Name:Kamron Rodriguez Subscriber ID:[id number] Payer ID:Not on file Group ID:Not on file Type:Medicare Address: [address] MEDICARE SUPPLEMENT PAYOR GENERIC MEDICARE MEDICARE SUPPLEMENT PAYOR GENERIC * Guarantor: KAMRON RODRIGUEZ Account Type Relation to Patient Date of Phone Billing Address Personal/[place] [address] MEDICARE MEDICARE SUPPLEMENT PAYOR GENERIC Care Teams Insights Strategist Relationship Specialty Start Date End Date Leon Taylor MD NPI: [id number] [place] [id number] PCP - General 02/28/19
--- OUTSIDE RECORDS SUMMARY | 2025-03-22 10:57 | XMS_ITS | Encounter Summary ---
Author Organization [facility] Address [address] [place] [address] Care Team Providers Care Varnish Cooker Name Role Phone Leon Taylor MD Primary Care Provider + Encounter Details Date Type Department Care Team (Late st Contact Info) Description 05/10/2023 Lab Requisition [facility] - Pathology Lab [address] [place] [id number] Dorian Flynn MD [address] [address] Illness, unspecified Social History Tobacco [...] Report Bone Marrow Patholog y Report Case: [id number] Authorizing Provider: Dorian Flynn MD Collected: 05/05/2023 09:15 AM Ordering Location: [facility] Care Pathology Lab Received: 05/10/2023 09:44 AM [...] blood smear: - Pancytopenia 05/10/2023 5:09 PM [facility] 1708 CDT AP Comment Correlation with clinical findings, imaging and cytogenetic/molecular testing is required. 05/10/2023 5:09 PM [facility] PATHOLOGY LAB Peripheral Smear Description RBC: normocytic and hypochromic anemia WBC: marked leukopenia with absolute lymphopenia, no circulating blasts seen Platelets: decreased in number 05/10/2023 5:09 PM [facility] PATHOLOGY LAB Bone Marrow Aspirate Specimen quality: adequate Spicules: present Trilineage Hematopoiesis: present Myeloid:Erythroid ratio: normal Myeloid Maturation: normal Erythroid Maturation: normal Megakaryocyte morphology:normal Storage iron (by special stain): decreased Sideroblastic iron (by special stain): absent 05/10/2023 5:09 PM [facility] Bone Marrow Core Biopsy and [...] (by special stain): absent 05/10/2023 5:09 PM [facility] PATHOLOGY LAB Flow Cytometry Summary Bone marrow, flow cytometric immunophenotypic analysis ([id number]): - No evidence of non-Hodgkin lymphoma or high-grade myeloid neoplasm. 05/10/2023 5:09 PM CDT U PATHOLOGY LAB Clinical History 73 year-old male with pancytopenia. 05/10/2023 5:09 PM [facility] Pathologist Location at [facility] 05/10/2023 5:09 PM [facility] PATHOLOGY LAB Disclaimer The performance characteristics of all immunohistochemical and indirect immunofluorescence stains (if any) cited in this report were determined by the Histopathology Laboratory of [facility]. Some of these tests were developed [...] attending (teaching) pathologist. 05/10/2023 5:09 PM CDT [facility] PATHOLOGY LAB Embedded Images 05/10/2023 5:09 PM CDT [facility] PATHOLOG[facility] LAB Pathology/Cytology BONE MARROW SPECIMEN / Unknown 05/05/2023 9:15 AM CDT 05/10/2023 9:44 AM CDT Miscellaneous samples (specimen) BONE MARROW SPECIMEN / Unknown 05/05/2023 9:15 AM CDT 05/10/2023 9:44 AM CDT Dorian Flynn MD LAB - PATHOLOGY/CYTOLOGY ORDERAB LES Final Result [facility] PATHOLOGY LAB [address] [phone] documented in this encounter Visit Diagnoses Diagnosis Illness, unspecified documented in this encounter Care Teams Varnish Cooker Relationship Specialty Start Date End Date Leon Taylor MD [address] [address] PCP - General 02/28/19 documented as of this encounter
--- OUTSIDE RECORDS SUMMARY | 2025-03-22 10:57 | XMS_ITS | Encounter Summary ---
Author Organization [facility] Address [address] [place] [address] Care Team Providers Care Gang Supervisor Name Role Phone Leon Taylor MD Primary Care Provider + Encounter Details Date Type Department Care Team (Late st Contact Info) Description 05/05/2023 Lab Requisition [facility] - Pathology Lab [address] [place] [id number] Dorian Flynn MD [address] [address] Anemia, unspecified Social History Tobacco [...] AM CDT) Case Report Flow Cytometry Case: [id number] Authorizing Provider: Dorian Flynn MD Collected: 05/05/2023 09:15 AM Ordering Location: [facility] Care Pathology Lab Received: 05/05/2023 01:34 PM Pathologist: Munir Espinoza MD Specimen: Bone Marrow 05/05/2023 4:54 PM CDT U PATHOLOGY LAB Final Diagnosis Bone marrow, flow cytometric immunophenotypic analysis: - No evidence of non-Hodgkin lymphoma or high-grade myeloid neoplasm. - See interpretation. Correlation with clinical findings, corresponding bone marrow biopsy, cytogenetic/molecu lar studies is required. 05/05/2023 4:54 PM [facility] PATHOLOGY LAB at 1654 CDT Flow Cytometry Interpretation Viability: 90% - Lymphocytes (17% of events) B-cells (5% of lymphocyes): polytypic, kappa:lambda ratio 1.6:1 T-cells (85% of lymphocytes): no immunophenotypic aberrancy detected - dimCD45 gate (5% of events) 2.3% of CD34 + blasts detected, express CD33 and CD13 with sea shell gatherer maturation. Plasma cells: polytypic, kappa:lambda ratio 1.5:1 no immunophenotypic aberrancy detected MRD sent: no A bone marrow aspirate smear prepared from the flow cytometry specimen has been reviewed for quality engineer medical device purposes. 05/05/2023 4:54 PM [facility] PATH[facility] Flow Cytometry Results Differential Result Comment Flow Cell Count /uL 36,800 Total Viability % 90.0 Lymphocytes % 17 Dim CD45 Region % 5 Monocytes % 8 Granulocytes % 69 05/05/2023 4:54 PM CDT U PATHOLOGY LAB Reason for test Anemia, unspecified 285.9 05/05/2023 4:54 PM [facility] Client Specimen ID # [id number] 05/05/2023 4:54 PM [facility] Number of markers 14 were performed. A-2 Flow CD10 A-3 Flow CD13 A-5 Flow CD20 A-13 Flow CD117 A-14 FLOW CD138 A-1 Flow CD5 A-4 Flow CD19 A-6 Flow CD33 A-7 Flow CD34 A-8 Flow CD45 A-11 Flow CD38 A-12 Flow CD56 A-9 [place]+CD19+ A-10 Lambda+CD19+ 05/05/2023 4:54 PM [facility] PATH[facility] Pathologist Location at [facility] 05/05/2023 4:54 PM [facility] PATH[facility] LAB Disclaimer Test performed at [facility], [address] [place] [address], [address]. *The established laboratory minimum viability is 70%. [...] complexity clinical testing. 05/05/2023 4:54 PM CDT [facility] PATHOLOGY LAB Embedded Images 4:54 PM CDT [facility] PATH[facility] LAB Pathology/Cytolo gy BONE MARROW SPECIMEN / Unknown 05/05/2023 9:15 AM CDT 05/05/2023 1:34 PM CDT Dorian Flynn MD LAB - PATHOLOGY/CYTOLOGY ORDERAB LES Final Result [facility] PATHOLOGY LAB [address] [phone] documented in this encounter Visit Diagnoses Diagnosis Anemia, unspecified documented in this encounter Care Teams Gang Supervisor Relationship Specialty Start Date End Date Leon Taylor MD [address] [address] PCP - General 02/28/19 documented as of this encounter
--- OUTSIDE RECORDS SUMMARY | 2025-03-22 10:57 | XMS_ITS | Clinical Summary ---
Author Organization [facility] Christo fowler [facility] Address [address] [place] [address] Care Team Providers Care Oil Burner Mechanic Name Role Phone Leon Taylor MD Primary Care Provider +1- [phone] Allergies No known active allergies Medications Eliquis [...] Encounters Date Type Department Care Team Description 02/08/2025 Abstract [facility] Oncology and Hematology - Jem [address] [facility] [address] [address] Nolan Herron MD 01/24/2025 External Device Data STL ABSTRACTION Provider, Abstract 01/24/2025 External Device Data STL ABSTRACTION Provider, Abstract 01/23/2025 External Device Data STL ABSTRACTION Provider, Abstract [...] 1:18 PM CDT Height 177.8 cm (5' 10) 04/22/2023 2:36 PM CDT Body Mass Index 38.17 04/22/2023 2:36 PM CDT Plan of Treatment Upcoming Encounters Date Type Department Care Team (Late st Contact Info) Description 06/17/2025 10:15 AM CDT Office Visit [facility] Oncology and Hematology [facility] [address] [facility] [address] [place] [address] Nolan Herron MD [address] [facility] [address] [place] [address] Health Maintenance Due Date Last Done Comments DTAP/TDAP/TD VACCINES (1 - Tdap) 1968 PNEUMOCOCCAL VACCINE 50+ YEA RS (1 of 2 - PCV) 1968 Traditional Medicare (ACO) A nnual Wellness Visit 1968 FIT-DNA Q 3 years 1994 FIT/FOBT Q 1 year 1994 Flex Sig/CT Colonography Q 5 years 1994 ZOSTER VACCINE (1 of 2) 1999 RSV VACCINE (60+ or ) (1 - 1-dose 75+ series) 2024 INFLUENZA VACCINE (#1) 2025 07/26/2019 COLORECTAL SCREENING 12/28/2033 12/29/2023, 04/07/2023, 02/23/2019 Colorectal Cancer Screening 12/28/2033 Insurance [employer] MEDICARE PART A AND B Care Teams Oil Burner Mechanic Relationship Specialty Start Date End Date Leon Taylor MD PCP - General Family Practice 04/22/23
--- OUTSIDE RECORDS SUMMARY | 2025-03-22 10:57 | XMS_ITS | Referral Summary ---
Author Organization [facility] [place] [address] Address [address] [place] [address] Care Team Providers Care Surgical Brace Maker Name Role Phone Leon Taylor MD Primary Care Prov ider Bhavesh Valdez MD Unavailable [phone] Nolan Herron MD Unavailable [phone] Edward Mckeon MD Unavailable Linnea Morris NP Unavailable Rosanne Chaves NP Unavailable Encounters Date Type Department Care Team Description 03/18/2025 1:00 PM CDT Office Visit [facility] Medical Group Cardiology [address] [facility] [address] [place] [address] Lissette Senior NP Nonrheumatic tricuspid valve regurgitation (Primary Dx); History of tricuspid valve replacement; Chronic heart failure with preserved ejection fraction (HCC); Chronic right heart failure (HCC); Persistent atrial fibrillation (HCC); Coronary artery disease involving caddo coronary artery of caddo heart without angina pectoris; Essential hypertension 03/18/2025 11:00 AM CDT - 03/18/2025 11:59 PM CDT Hospital Encounter [facility] [address] [place] [address] Nonrheumatic tricuspid valve regurgitation Discharge Disposition: Discharge to home or self care 03/18/2025 9:57 AM CDT - 03/18/2025 11:59 PM CDT Hospital Encounter [facility] OP Cardiac Testing [address] [place] [address] [address] [place], [place] [id number] Nonrheumatic tricuspid valve regurgitation Discharge Disposition: Discharge to home or self care 02/27/2025 Telephone [facility] [place] [address] [facility] [address] [place] [phone] Deirdre Wu EP-C ACL Reconstruction Follow-up 02/25/2025 9:00 AM CDT Office Visit [facility] Medical Group Cardiology [address] [facility] [address] [place] [address] Yamel Mabry NP History of tricuspid valve replacement (Primary Dx); Persistent atrial fibrillation (HCC) 02/07/2025 8:28 AM CDT - 02/11/2025 1:45 PM CDT Hospital Encounter [address] [address] Edward Mckeon MD Baker, Joshua Norbert, MD Severe tricuspid regurgitation (Primary Dx); Nonrheumatic tricuspid valve regurgitation; H/O tricuspid valve replacement Discharge Disposition: Discharge to home or self care 02/07/2025 11:03 AM CDT Anesthesia Event [facility] Operating Room [address] [place] [phone] Muriel Orta MD 02/07/2025 10:15 AM CDT - 02/07/2025 12:45 PM CDT Surgery [facility] Operating Room [address] [place] [phone] Edward Mckeon MD Transcatheter Tricuspid Valve Implant (TTVI/TTVR) 02/04/2025 Telephone Cardiovascular and Thoracic Surgery [address] [facility] [address] [place] [phone] Manny Villeda MD Weight check 01/31/2025 2:05 PM CDT Lab [facility] Outpatient Lab [address] [place] [phone] Nonrheumatic tricuspid valve regurgitation; Pre-operative cardiovascular examination, symptomatic CHF (HCC) 01/31/2025 1:00 PM CDT Office Visit Cardiovascular and Thoracic Surgery [address] [place] [address] [address] [place] [address] Linnea Morris NP Thrombocytopenia (Primary Dx); Nonrheumatic tricuspid valve regurgitation; Pre-operative cardiovascular examination, symptomatic CHF (HCC) 01/25/2025 Documentation Cardiovascular and Thoracic Surgery [address] [place] [address] [address] [place] [address] Aziza Kumari 01/21/2025 2:00 PM CDT - 01/21/2025 3:15 PM CDT Surgery [facility] [address] [place] [phone] Edward Mckeon MD RIGHT LEFT HEART CATHETERIZATION WITH CORONARY ANGIOGRAPHY GRAFT AND WITH OR WITHOUT LEFT VENTRICULOGRAPHY [id number] 01/21/2025 12:55 PM CDT - 01/21/2025 6:04 PM CDT Hospital Encounter [facility] [place] [address] Edward Mckeon MD Nonrheumatic tricuspid valve regurgitation Discharge Disposition: Discharge to home or self care 01/15/[address] [facility] Medical Group Cardiology [address] [facility] [address] [place] [phone] Bhavesh Valdez MD 01/07/[address] [facility] Medical Group Cardiology [address] [place] [address] [address] [place] [address] Edward Mckeon MD 01/07/2025 Orders Only Cardiovascular and Thoracic Surgery [address] [place] [address] [address] [place] [address] Linnea Morris NP 01/07/2025 Telephone Cardiovascular and Thoracic Surgery [address] [place] [address] [address] [place] [address] Manny Villeda MD OTHER 01/03/2025 12:56 PM CDT - 01/03/2025 11:59 PM CDT Hospital Encounter [facility] - Imaging [address] [place] [address] Pre-op evaluation; Severe tricuspid valve regurgitation; Nonrheumatic aortic (valve) insufficiency Discharge Disposition: Discharge to home or self care 01/03/2025 11:55 AM CDT Lab [facility] Outpatient Lab [address] [place] [phone] Pre-op evaluation; Severe tricuspid regurgitation 01/03/2025 11:00 AM CDT Office Visit Cardiovascular and Thoracic Surgery [address] [place] [address] [address] [address] Rosanne Chaves NP Urinary tract infection without hematuria, site unspecified (Primary Dx); Pre-op evaluation; Severe tricuspid regurgitation; Severe tricuspid valve regurgitation; Other thrombophilia (HCC); Nonrheumatic aortic (valve) insufficiency 12/31/[address] [facility] Medical Group Cardiology [address] [place] [address] [address] [place] [phone] Marly Benedict MD 12/28/2024 Telephone [facility] Cardiology [address] [place] [phone] Bhavesh Valdez MD 12/26/2024 Orders Only [facility] Cardiology [address] [place] [address] [place] [phone] Hyun Faria MD 12/26/2024 Documentation Cardiovascular and Thoracic Surgery [address] [place] [address] [address] [place] [address] Aziza Kumari 12/26/2024 Documentation Cardiovascular and Thoracic Surgery [address] [place] [address], [place] [address] Aziza Kumari from Last 3 Months Allergies No known active allergies Medications tamsulosin (FLOMAX) 0.4 mg extended release capsule Take 1 capsule (0.4 mg total) by mouth 2 (two) times a day 5 9 Active doxazosin (CARDURA) 8 mg tablet TAKE 1 TABLET (8 MG TOTAL) BY MOUTH DAILY 90 tablet 2 0 Active Additional Information Patient taking differently: 8 mg oral 2 times daily, Reported on 03/18/2025 acetaminophen ER (TYLENOL) 650 mg 8 hr tablet Take 1 tablet (650 mg total) by mouth every 8 (eight) hours as needed for pain Active oxybutynin (DITROPAN) 5 mg tablet TAKE 1 TAB BY MOUTH DAILY FOR BLADDER 0 Active loperamide (IMODIUM) 2 mg capsule 1 Active ferrous sulfate 325 mg (65 mg of elemental iron) tablet Take 1 tablet (325 mg total) by mouth 2 (two) times a day Active cyanocobalamin (vitamin B-12) 1,000 mcg tablet Take 1 tablet (1,000 mcg total) by mouth daily Active furosemide (LASIX) 40 mg tablet Take 1 tablet (40 mg total) by mouth 2 (two) times a day 5 Active hydrOXYzine (ATARAX) 10 mg tablet Take 1 tablet (10 mg total) by mouth every 6 (six) hours as needed for itching 5 Active folic acid (FOLVITE) 1 mg tablet Take 1 tablet (1 mg total) by mouth daily Active apixaban (ELIQUIS) 5 mg tabletIndication s:atrial fibrillation Take 1 tablet (5 mg total) by mouth every 12 (twelve) hours 5 Active aspirin 81 mg enteric coated tablet Take 1 tablet (81 mg total) by mouth daily 5 02/13/20 26 Active propranolol LA (INDERAL LA) 120 mg 24 hr capsule Take 1 capsule (120 mg total) by mouth daily 30 capsule 1 5 Active Active Problems Problem Noted Date Diagnosed Date Severe tricuspid regurgitation 02/07/2025 Thrombocytopenia 02/01/2025 Pre-op evaluation 01/04/2025 Severe tricuspid valve regurgitation 01/04/2025 Other thrombophilia 01/03/2025 Acute on chronic right-sided congestive heart fa ilure 12/18/2024 Nonrheumatic tricuspid valve regurgitation 08/22 Severe obesity 08/22/2024 Presence of Watchman left atrial appendage closu re device 03/21/2024 02/07/2024 Persistent atrial fibrillation 05/25/2019 Overview (05/25/2019): Added automatically from request for surgery [id number] Assessment & Plan (08/25/2023 5:27 PM INFORMATION TECHNOLOGY ADMINISTRATOR): The patient is status post catheter [...] better to proceed with ablation 1st. From: September CT, Felicia LS, Brice JS, Natanael H, Len SONAM, Lena JE, Angel TRACY, Wen PT, Stiven MALLOY, ME, Jimmy KT, Ryan RL, Sebastian WG, Dwayne PJ, Darleen CM, Nadine CW. 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 Based on this, systemic anticoagulation [...] medication / follow-up regimen, to include a HARISH at 45 days post-device placement. I provided the patient with educational material. If the patient would like to proceed, I will refer her to our Watchman coordinator for additional screening and preparations. From: Mee VANCE, Marquis MK, Love AL, et al. 2022 CC/AHA/ACCP/HRS Guideline for the Diagnosis and Management of Atrial Fibrillation: A Report of the [place] College of Cardiology/ [place] Heart Association Joint Committee on Clinical Practice Guidelines. Circulation 2022;148: e42 Class IIA: In patients with AF, a moderate to high risk of stroke (PJS1GB8-XMAo score >=2), and a contraindication to long-term oral anticoagulation due to a nonreversible cause, percutaneous LAAO (pLAAO) is reasonable Hypertension 10/15/2014 Chronic coronary artery disease 09/30/2014 Resolved Problems Problem Noted Date Diagnosed Date Resolved Date A-fib 02/07/2024 03/21/2024 Paroxysmal atrial fibrillation ([facility] 03/30/2019 06/29/2022 Overview (03/30/2019): Added automatically from request for surgery [id number] Atrial fibrillation ([facility]) [I48.91] 02/16/2017 06/29/2022 Immunizations Immunization Administration Dates Next Due Influenza, Trivalent, High D ose, Split, Preservative Free, Intramuscular 07/26/2019 Social History Tobacco Use Types Packs/Day Years Used Date Smoking Tobacco: Never Smokeless Tobacco: Never Tobacco Cessation:Counseling Given: Not Answered Alcohol Use Standard Drinks/Week Comments No 0 (1 standard drink = 0.6 oz pur e alcohol) [facility] Utilities Answer Date Recorded In the past 12 months has th e electric, gas, oil, or water company threatened to shut off services in your home? No 02/08/2025 Social Connection and Isolat ion Panel [NHANES] Answer Date Recorded In a typical week, how many times do you talk on the phone with family, friends, or neighbors? More than three times a week 02/08/2025 How often do you get togethe r with friends or relatives? More than three times a week 02/08/2025 How often do you attend chur ch or mormonism services? Never 02/08/2025 Do you belong to any clubs o r organizations such as samaritan groups, unions, fraternal or athletic groups, or school groups? Yes 02/08/2025 How often do you attend meet ings of the clubs or organizations you belong to? More than 4 times per year 02/08/2025 Are you , , di vorced, , never , or living with a partner? Never 02/08/2025 AUDIT-C Answer Date Recorded Q1: How often do you have a drink containing alc ohol? Never 02/07/2025 Average Number of Drinks Not on file 025 Frequency of Binge Drinking Not on file 01/2025 Overall Financial Resource Strain (CARDIA) Answe r Date Recorded How hard is it for you to pa y for the very basics like food, housing, medical care, and heating? Not very hard 02/08/2025 Hunger Vital Sign Answer Date Recorded Within the past 12 months, y ou worried that your food would run out before you got the money to buy more. Never true 02/09/20 25 Within the past 12 months, t he food you bought just didn't last and you didn't have money to get more. Never true 02/08/2025 PRAPARE - Transportation Answer Date Re corded In the past 12 months, has l ack of transportation kept you from medical appointments or from getting medications? No 02/2025 In the past 12 months, has l ack of transportation kept you from meetings, work, or from getting things needed for daily living? No 02/08/2025 Housing Stability Vital Sign Answer Ivan e Recorded In the last 12 months, was t here a time when you were not able to pay the mortgage or rent on time? No 02/08/2025 In the past 12 months, how m any times have you moved where you were living? 0 02/08/2025 At any time in the past 12 m [place], were you homeless or living in a fdc (including now)? No 02/08/2025 Personal Safety Answer Date Recorded Have you ever been in or are you currently in a harmful physical or emotional relationship or is someone making you feel afraid or unsafe? Denies 02/07/2025 Sex and Gender Information Value Date Recorded Sex Assigned at Not on file Legal Sex Male 8:52 PM INFORMATION TECHNOLOGY ADMINISTRATOR Gender Identity Not on file Sexual Orientation Not on file Last Filed Vital Signs Vital Sign Reading Time Taken Comments Blood Pressure 118/66 03/18/2025 12:35 PM CDT Pulse 93 03/18/2025 12:35 PM CDT Temperature 36.5 C (97.7 F) 02/11/2025 11:40 AM CDT Respiratory Rate 18 02/11/2025 11:40 AM CDT Oxygen Saturation 98% 03/18/2025 12:35 PM CDT Inhaled Oxygen Concentration - - Weight 110.7 kg (244 lb) 03/18/2025 12:35 PM CDT Height 177.8 cm (5' 10) 03/18/2025 12:35 PM CDT Body Mass Index 35.01 03/18/2025 12:35 PM CDT Plan of Treatment Not on file Medical Devices Implanted Type Area Arcade Attendant Device Identifier Shelf Expiration Date Model / Serial / Lot [employer] Brad Device Closure 27mm Lt Watchman Flx Pro Cardiac Strl [place] [id number] - [id number] - [id number] Implanted:Qty: 1 on 02/07/2024 by Caleb Bonilla MD at [facility] Left Atrial Appendage Occluder [employer] Brad 12/07/2026 [id number] / [id number] / [id number] Pate [employer] Component Bundle 56mm Transcath Trcsd Strl Heart Vlv Evoque [id number] - [id number] - [id number] Implanted:Qty: 1 on 02/07/2025 by Edward Mckeon MD at [facility] Prosthetic Valve N/A: Tricuspid Valve Pate [employer] 04/29/2026 [id number] / [id number] / [employer] Brad Angio-Seal Vip 6fr Closere Device [id number] - S0 - [id number] Implanted:Qty: 1 on 01/21/2025 by Edward Mckeon MD at [facility] Vascular Closure Device [employer] Brad 05/23/2025 [id number] / [id number] [employer] Device Vascular Closure Femoral Artery Bioabsorbable Dual Method Vascade 6-7fr Collagen [id number] - S0 - [id number] Implanted:Qty: 1 on 01/21/2025 by Edward Mckeon MD at [facility] Vascular Closure Device [employer] 11/27/2026 [id number] / 0 / [id number] [employer] Vascade Mvp 6-12fr Venous Closure [id number] - [id number] - [id number] Implanted:Qty: 1 on 02/07/2024 by Caleb Bonilla MD at [facility] [employer] 11/23/2025 [id number] / [id number] / [id number] Neves V[employer] System Closure Repair Femoral Artery Suture Mediated Perclose Prostyle 04909-11 - [id number] Implanted:Qty: 1 on 02/07/2025 by Edward Mckeon MD at [facility] Right: Groin [employer] 09/04/2026 [id number] / / [id number] Neves Vascular System Closure Repair Femoral Artery Suture Mediated Perclose Prostyle 00282-63 - [id number] Implanted:Qty: 1 on 02/07/2025 by Edward Mckeon MD at [facility] Right: Groin [employer] 10/05/2026 [id number] / / [id number] Procedures Procedure Name Priority Date/Time Associated Diagnosis Comments PULMONARY FUNCTION TEST (PFT) Routine 03/18/2025 11:11 AM CDT Nonrheumatic tricuspid valve regurgitation TRANSTHORACIC ECHO (TTE) COMPLETE W DOPPLER/CF WO CONTRAST Routine 03/18/2025 10:44 AM CDT Nonrheumatic tricuspid valve regurgitation XR CHEST 1 VIEW IP Routine 02/11/2025 6:26 AM CDT EGFR Routine 02/11/2025 12:22 AM CDT MAGNESIUM Routine 02/11/2025 12:22 AM CDT CALCIUM, IONIZED Routine 02/11/2025 12:22 AM CDT RENAL FUNCTION PANEL Routine 02/11/2025 12:22 AM CDT CBC WITHOUT DIFFERENTIAL Routine 02/11/2025 12:22 AM CDT TYPE AND SCREEN Timed 02/11/2025 12:22 AM CDT XR CHEST 1 VIEW IP Routine 02/10/2025 6:51 AM CDT EGFR Routine 02/10/2025 3:02 AM CDT MAGNESIUM Routine 02/10/2025 3:02 AM CDT CALCIUM, IONIZED Routine 02/10/2025 3:02 AM CDT RENAL FUNCTION PANEL Routine 02/10/2025 3:02 AM CDT CBC WITHOUT DIFFERENTIAL Routine 02/10/2025 3:02 AM CDT XR CHEST 1 VIEW IP Routine 02/09/2025 6:46 AM CDT EGFR Routine 02/09/2025 12:46 AM CDT MAGNESIUM Routine 02/09/2025 12:46 AM CDT CALCIUM, IONIZED Routine 02/09/2025 12:46 AM CDT RENAL FUNCTION PANEL Routine 02/09/2025 12:46 AM CDT CBC WITHOUT DIFFERENTIAL Routine 02/09/2025 12:46 AM CDT TRANSTHORACIC ECHO (TTE) LIMITED/FOLLOW UP W LTD DOPPLER/CF WO CONTRAST Routine 02/08/2025 10:21 AM CDT XR CHEST 1 VIEW IP Routine 02/08/2025 6:49 AM CDT CRITICAL CARE Routine 02/08/2025 6:37 AM CDT Severe tricuspid regurgitation EGFR Routine 02/08/2025 3:11 AM CDT PHOSPHORUS Routine 02/08/2025 3:11 AM CDT BILIRUBIN, DIRECT Routine 02/08/2025 3:1 1 AM CDT COMPREHENSIVE METABOLIC PANEL Routine 02/08/2025 3:11 AM CDT MAGNESIUM Routine 02/08/2025 3:11 AM CDT CBC WITHOUT DIFFERENTIAL Routine 02/08/2025 3:11 AM CDT POCT GLUCOSE DEVICE Routine 02/08/2025 2 :59 AM CDT CALCIUM, IONIZED Routine 02/08/2025 2:56 AM CDT CRITICAL CARE Routine 02/07/2025 10:17 PM CDT Nonrheumatic tricuspid valve regurgitation XR CHEST 1 VIEW ED Urgent/IP Urgent 02/07/2025 2:20 PM CDT CRITICAL CARE Routine 02/07/2025 2:05 PM CDT POCT GLUCOSE DEVICE Routine 02/07/2025 1 :11 PM CDT EGFR STAT 02/07/2025 1:05 PM CDT APTT STAT 02/07/2025 1:05 PM CDT PROTIME-INR STAT 02/07/2025 1:05 PM CDT CBC WITHOUT DIFFERENTIAL STAT 02/07/2025 1:05 PM CDT CALCIUM, IONIZED STAT 02/07/2025 1:05 PM CDT MAGNESIUM STAT 02/07/2025 1:05 PM CDT BASIC METABOLIC PANEL STAT 02/07/2025 1:05 PM CDT PHOSPHORUS STAT 02/07/2025 1:05 PM CDT TRANSCATHETER TRICUSPID VALVE IMPLANT Routine 02/07/2025 12:47 PM CDT Nonrheumatic tricuspid valve regurgitation TRANSCATHETER TRICUSPID VALVE IMPLANT Routine 02/07/2025 12:47 PM CDT Nonrheumatic tricuspid valve regurgitation HARISH GUIDANCE DURING CARDIAC STRUCTURAL INTVN [id number] Routine 02/07/2025 12:42 PM CDT POCT ACTIVATED CLOTTING TIME, HIGH RANGE Routine 02/07/2025 11:55 AM CDT OR AN PROCEDURE PLACEHOLDER Routine 02/07/2025 11:28 AM CDT OR AN ELECTIVE ENDOTRACHEAL AIRWAY Routine 02/07/2025 11:28 AM CDT TYPE AND SCREEN STAT 02/07/2025 9:08 AM CDT PREPARE RBC STAT 02/07/2025 8:51 AM CDT BLOOD SMEAR REVIEW Routine 01/31/2025 2: 56 PM CDT Nonrheumatic tricuspid valve regurgitation EGFR Routine 01/31/2025 2:56 PM CDT Nonrheumatic tricuspid valve regurgitation DIFFERENTIAL AUTO Routine 01/31/2025 2:5 6 PM CDT Nonrheumatic tricuspid valve regurgitation PRO B-TYPE NATRIURETIC PEPTIDE Routine 01/31/2025 2:56 PM CDT Nonrheumatic tricuspid valve regurgitation CBC WITH AUTO DIFFERENTIAL Routine 01/31/2025 2:56 PM CDT Nonrheumatic tricuspid valve regurgitation COMPREHENSIVE METABOLIC PANEL Routine 01/31/2025 2:56 PM CDT Nonrheumatic tricuspid valve regurgitation PROTIME-INR Routine 01/31/2025 2:56 PM CDT Nonrheumatic tricuspid valve regurgitation Pre-operative cardiovascular examination, symptomatic CHF (HCC) TYPE AND SCREEN Routine 01/31/2025 2:56 PM CDT Nonrheumatic tricuspid valve regurgitation RIGHT LEFT HEART CATHETERIZATION CORONARY GRAFT WITH WITHOUT LEFT VENTRICULOGRAPHY ANGIOGRAM Routine 01/21/2025 2:58 PM CDT Nonrheumatic tricuspid valve regurgitation ECG 12-LEAD STAT 01/21/2025 1:17 PM CDT Nonrheumatic tricuspid valve regurgitation CTA HEART AND CORONARIES WITH THORACIC AORTA [...] DOCUMENT SCAN Routine 12/21/2024 4:07 PM CDT from Last 3 Months Results * Pulmonary Function Test - (03/18/2025 11:11 AM CDT) Anatomical Region Laterality Modality PFT 03/18/2025 11:1 0 AM CDT Narrative 03/18/2025 3:57 PM CDT Table formatting from the original result was not included. [facility] BO[facility] CERTIFIED IN PULMONARY, CRITICAL CARE, AND SLEEP MEDICINE Merissa Jarrell MD [facility] [id number] [place] [address] MD Chaz Ching MD Office [phone] Dorian Christie MD PULMONARY FUNCTION TESTING 6 Minute Walk Test Distance: 300ft O2 sat at rest on RA: 99 O2 sat alexus: 97 Max manoj score: 3 Pulse at rest: 80 Pulse with exertion: 112 BP at rest: 140/73 BP with exertion: 129/60 INTERPRETATION A 6 minute walk distance. No hypoxemia at rest or with this level of exertion Merissa Jarrell MD, Board Certified in Pulmonary and Critical Care Medicine [phone] Please note that our PFT lab has [...] * TRANSTHORACIC ECHO (TTE) COMPLETE W DOPPLER/CF WO CONTRAST (03/18/2025 10:44 AM CDT) EF Mod BP 48 % CONS SCIMAGE Anatomical Region Laterality Modality Ultrasound 03/18/2025 9:59 AM CDT Narrative 03/18/2025 7:02 PM CDT [facility] [address] [place] [id number] ECHOCARDIOGRAM Patient Name: KAMRON CHAUDHARY : 1950 (74y 10m) Gender: M Study Date: 03/18/2025 09:59:02 AM Ht(Inch): 70 Wt(Lb): 244.05 BSA: 2.34 Blending Coordinator: MAISHA Order Provider: EDWARD MCKEON BMI: 35.01 BP: 112/52 Ref Provider: EDWARD MCKEON - PROCEDURES: Echocardiographic Report: Transthoracic Echocardiogram with complete 2D, M-Mode, Spectral and Color Flow Doppler examination. INDICATIONS: I36.1 Nonrheumatic tricuspid (valve) insufficiency. MEASUREMENTS: 2D/MM Value Range Doppler Value Range IVSd 2D 1.37 cm [ 0.60 - 1.00 ] AV Peak Cuco 1.56 m/s [ 1.00 - 1.70 ] LVIDd 2D 4.78 cm [ 4.20 - 5.80 ] AV Peak PG 10.4 mmHg LVIDs 2D 3.23 cm [ 2.50 - 4.00 ] AV Mean PG 5.4 mmHg LVPWd 2D 1.34 cm [ 0.60 - 1.00 ] AV VTI 33.2 cm EF Mod BP 48 % [ 52 - 72 ] RAGINI VTI 1.9 cm2 LA Dimen 2D 5.60 cm [ 3.00 - 4.00 ] LVOT Peak Cuco 0.89 m/s [ 0.70 - 1.10 ] AoR Diam 2D 3.19 cm [ 3.10 - 3.70 ] LVOT Diam 2.1 cm AoR Diam 2D Index 1.36 LVOT Peak PG 3.2 mmHg RA Volume 93.90 ml LVOT VTI 22.1 cm LA Volume Index 60.70 ml/m2 [ 16.00 - 34.00 ] MV Peak PG 7.8 mmHg MV Mean PG 3.8 mmHg MV E Peak Cuco 1.4 m/s [ 0.6 - 1.3 ] MV PHT 50.0 ms [ 20.0 - 100.0 ] MV Decel Time 185.0 ms [ 104.0 - 258.0 ] MVA PHT 4.4 ms TR Peak Cuco 3.4 m/s [ 1.0 - 2.8 ] TR Peak PG 45 mmHg RVSP 60.4 mmHg [ 10.0 - 36.0 ] RA Pressure 15.0 mmHg PV Peak Cuco 0.8 m/s [ 0.4 - 0.8 ] PV Peak PG 2.8 mmHg Lat E` Cuco 0.09 m/s [ 0.10 - 0.15 ] Septal E` 0.06 m/s [ 0.08 - 0.15 ] E/E` 15.56 RV S` 0.05 m/s 2D/MM Value Range Doppler Value Range - FINDINGS: BP: Blood pressure: 112/52 mmHg. Left Ventricle: Mild left ventricular systolic dysfunction. There is global hypokinesis. Ejection Fraction (Simpsons) is measured at 48 %. Right Ventricle: Mild right ventricular dysfunction. Left Atrium: The left atrium is normal in size. Right Atrium: The right atrium is normal in size. Atrial Septum: Normal appearing atrial septum. Mitral Valve: Trace mitral valve regurgitation. Aortic Valve: Normal aortic valve appearance and function. Tricuspid Valve: There is no tricuspid regurgitation. Normal functioning bioprosthetic valve. Pulmonic Valve: Normal appearance and function of the pulmonic valve. Pericardium: Normal appearing pericardial thickness. No significant pericardial effusion. Aortic Root and Aorta: The sinuses of Valsalva are normal. Normal caliber aortic root. Normal sized ascending aorta. Normal sized descending aorta. Aortic Arch: Normal caliber aortic arch. IVC: Normal appearance of the inferior vena cava. CONCLUSIONS: 1. Mild left ventricular systolic dysfunction. There is global hypokinesis. Ejection Fraction (Simpsons) is measured at 48 %. 2. Mild right ventricular dysfunction. 3. Trace mitral valve regurgitation. 4. There is no tricuspid regurgitation. Normal functioning bioprosthetic valve. 5. Normal appearing pericardial thickness. No significant pericardial effusion. Electronically Signed By: Edward Mckeon MD 03/18/2025 7:01:38 PM CDT Procedure Note Edward Mckeon MD - 03/18/2025 [facility] [address] [place] [address] ECHOCARDIOGRAM Patient Name: KAMRON CHAUDHARY : 1950 (74y 10m) Gender: M Study Date: 03/18/2025 09:59:02 AM Ht(Inch): 70 Wt(Lb): 244.05 BSA: 2.34 Blending Coordinator: Order Provider: EDWARD MCKEON BMI: 35.01 BP: 112/52 Ref Provider: EDWARD MCKEON - PROCEDURES: Echocardiographic Report: Transthoracic Echocardiogram with complete 2D,M-Mode, Spectral and Color Flow Doppler examination. INDICATIONS: I36.1 Nonrheumatic tricuspid (valve) insufficiency. MEASUREMENTS: 2D/MM Value Range DopplerValue Range IVSd 2D 1.37 cm [ 0.60 - 1.00 ] AV Peak Vel1.56 m/s [ 1.00 - 1.70 ] LVIDd 2D 4.78 cm [ 4.20 - 5.80 ] AV Peak PG10.4 mmHg LVIDs 2D 3.23 cm [ 2.50 - 4.00 ] AV Mean PG5.4 mmHg LVPWd 2D 1.34 cm [ 0.60 - 1.00 ] AV VTI33.2 cm EF Mod BP 48 % [ 52 - 72 ] RAGINI VTI1.9 cm2 LA Dimen 2D 5.60 cm [ 3.00 - 4.00 ] LVOT Peak Vel0.89 m/s [ 0.70 - 1.10 ] AoR Diam 2D 3.19 cm [ 3.10 - 3.70 ] LVOT Diam2.1 cm AoR Diam 2D Index 1.36 LVOT Peak PG3.2 mmHg RA Volume 93.90 ml LVOT VTI22.1 cm LA Volume Index 60.70 ml/m2 [ 16.00 - 34.00 ] MV Peak PG7.8 mmHg MV Mean PG 3.8 mmHg MV E Peak Cuoc 1.4 m/s [ 0.6 - 1.3 ] MV PHT 50.0 ms [ 20.0 - 100.0 ] MV Decel Time 185.0 ms [ 104.0 - 258.0 ] MVA PHT 4.4 ms TR Peak Cuco 3.4 m/s [ 1.0 - 2.8 ] TR Peak PG 45 mmHg RVSP 60.4 mmHg [ 10.0 - 36.0 ] RA Pressure 15.0 mmHg PV Peak Cuco 0.8 m/s [ 0.4 - 0.8 ] PV Peak PG 2.8 mmHg Lat E` Cuco 0.09 m/s [ 0.10 - 0.15 ] Septal E` 0.06 m/s [ 0.08 - 0.15 ] E/E` 15.56 RV S` 0.05 m/s 2D/MM Value Range DopplerValue Range - FINDINGS: BP: Blood pressure: 112/52 mmHg. Left Ventricle: Mild left ventricular systolic dysfunction. There isglobal hypokinesis. Ejection Fraction (Simpsons) is measured at 48 %. Right Ventricle: Mild right ventricular dysfunction. Left Atrium: The left atrium is normal in size. Right Atrium: The right atrium is normal in size. Atrial Septum: Normal appearing atrial septum. Mitral Valve: Trace mitral valve regurgitation. Aortic Valve: Normal aortic valve appearance and function. Tricuspid Valve: There is no tricuspid regurgitation. Normal functioningbioprosthetic valve. Pulmonic Valve: Normal appearance and function of the pulmonic valve. Pericardium: Normal appearing pericardial thickness. No significantpericardial effusion. Aortic Root and Aorta: The sinuses of Valsalva are normal. Normal caliberaortic root. Normal sized ascending aorta. Normal sized descending aorta. Aortic Arch: Normal caliber aortic arch. IVC: Normal appearance of the inferior vena cava. CONCLUSIONS: 1. Mild left ventricular systolic dysfunction. There is globalhypokinesis. Ejection Fraction (Simpsons) is measured at 48 %. 2. Mild right ventricular dysfunction. 3. Trace mitral valve regurgitation. 4. There is no tricuspid regurgitation. Normal functioning bioprostheticvalve. 5. Normal appearing pericardial thickness. No significant pericardialeffusion. Electronically Signed By: Edward Mckeon MD 03/18/2025 7:01:38 PM CDT us Edward Mckeon MD CV ECHO PROCEDURES Final Result * XR Chest 1 View - Portable - in AM (02/11/2025 6:26 AM CDT) Anatomical Region Laterality Modality Body, Chest N/A Computed Radiogr aphy 02/11/2025 7:51 AM CDT Impressions 02/11/2025 7:51 AM CDT Median sternotomy. Tricuspid valve replacement. Similar enlarged contour the heart. There is been interval improvement of the interstitial opacities bilaterally with trace residual pulmonary edema noted. There is bibasilar linear opacities, which have improved and likely represent atelectasis. No sizable pleural effusions. No pneumothorax. Electronically signed by: Burke De Leon M.D. Narrative 02/11/2025 7:51 AM CDT PORTABLE CHEST RADIOGRAPH INDICATION: pleural effusion COMPARISON: 02/10/2025 VIEWS: 1 Procedure Note Burke De Leon MD - 02/11/2025 PORTABLE CHEST RADIOGRAPH INDICATION: pleural effusion COMPARISON: 02/10/2025 VIEWS: 1 IMPRESSION: Median sternotomy. Tricuspid valve replacement. Similar enlarged contour the heart. There is been interval improvement of the interstitial opacities bilaterally with trace residual pulmonary edema noted. There is bibasilar linear opacities, which have improved and likely represent atelectasis. No sizable pleural effusions. No pneumothorax. Electronically signed by: Burke De Leon M.D. Ilsa Chu EMS DIRECTOR IMG XR PROCEDURES Final Result * (ABNORMAL) eGFR (02/11/2025 12:22 AM CDT) eGFR 51(L) >=60 mL/min/1. 73 m2 Comment: Interpretive Data [...] interpretive data was last reviewed 2021. Blood 02/11/2025 12:2 2 AM CDT 02/11/2025 12:36 AM CDT Ilsa Yarbrough Tonsor EMS DIRECTOR LAB BLOOD ORDERABLES Fin al Result Performing Organization Address [facility]/ZIP Co de Phone Number [facility] [address] [facility] [place] [address] * (ABNORMAL) Calcium, ionized (02/11/2025 12:22 AM CDT) Pathologist [facility] Calcium, Ionized 4.48(L) 4.50 - 5.10 mg/dL Blood 02/11/2025 12:2 2 AM CDT 02/11/2025 12:28 AM CDT [facility] LAB BLOOD ORDERABLES Fin al Result Performing Organization Address [facility] Co de Phone Number [facility] [address] [facility] [place] [address] * (ABNORMAL) CBC without differential (02/11/2025 12:22 AM CDT) [facility] WBC 1.57(L) 3.80 - 9.90 K/cumm Hgb 8.8(L) 13.0 - 17.5 g/dL [facility] Hct 28.3(L) 38.9 - 50.3 % [facility] Plt 69(L) 150 - 400 K/cumm [facility] MPV 10.5 9.1 - 12.3 fL [facility] RBC 3.18(L) 4.30 - 5.80 M/cumm [facility] MCV 89.0 81.3 - 96.4 fL [facility] MCH 27.7 27.1 - 33.3 pg [facility] MCHC 31.1(L) 32.3 - 35.7 g/dL [facility] RDW CV 17.3(H) 11.1 - 14.9 % [facility] RDW SD 56.7(H) 35.7 - 48.1 fL [facility] NRBC abs 0.00 0.00 - 0.01 K/cumm [facility] Blood 02/11/2025 12:2 2 AM CDT 02/11/2025 12:36 AM CDT Ilsa Yarbrough Tonsor EMS DIRECTOR LAB BLOOD ORDERABLES Fin al Result Performing Organization Address [facility] Co de Phone Number [facility] [address] [facility] [place], [place] [id number] * Type and screen (02/11/2025 12:22 AM CDT) ABO Rh A Negative Angelina, indirect Negative [facility] Blood 02/11/2025 12:2 2 AM CDT 02/11/2025 12:33 AM CDT Narrative [facility] - 02/11/2025 1:15 AM CDT Has the patient had Daratumumab or Isatuximab in the past 6 months?->Unknown [facility]a Yarbrough [facility] DIRECTOR LAB BLOOD BANK TEST ORDE RABLES Final Result Performing Organization Address [facility] de Phone Number [facility] [address] [place] [address] * Magnesium (02/11/2025 12:22 AM CDT) Pathologist [facility] Magnesium 2.2 1.4 - 2.5 mg/dL Blood 02/11/2025 12:2 2 AM CDT 02/11/2025 12:36 AM CDT [facility]a [facility]arbrough [facility] LAB BLOOD ORDERABLES Fin al Result Performing Organization Address [facility] Co de Phone Number [facility] [address] [place] [address] * (ABNORMAL) Renal function panel (02/11/2025 12:22 AM CDT) Sodium 137 135 - 145 mmol/L Potassium, pl 4.3 3.3 - 4.9 mmol/L [facility] Chloride 102 97 - 110 mmol/L [facility] CO2 19(L) 22 - 32 mmol/L [facility] Anion gap 16(H) 2 - 15 mmol/L [facility] BUN 37(H) 6 - 25 mg/dL [facility] Creatinine 1.43(H) 0.80 - 1.30 mg/dL [facility] Glucose 91 70 - 199 mg/dL [facility] Comment: Interpretive Data Fasting glucose [...] interpretive data was last revised 2022. Calcium 8.7 8.5 - 10.3 mg/dL [facility] Phosphorus, pl 4.0 2.3 - 4.5 mg/dL [facility] Albumin 3.6 3.5 - 5.0 g/dL [facility] Blood 02/11/2025 12:2 2 AM CDT 02/11/2025 12:36 AM CDT Ilsa Chu NP LAB BLOOD ORDERABLES Fin al Result [facility] [address] Department [place] [address] * XR Chest 1 View - Portable - in AM (02/10/2025 6:51 AM CDT) Anatomical Region Laterality Modality Body, Chest N/A Computed Radiogr aphy 02/10/2025 7:12 AM CDT Impressions 02/10/2025 7:12 AM CDT Sternotomy wires are unchanged. Transcatheter tricuspid valve are demonstrated. The lung volumes are small and slightly decreased from the prior exam with increased moderate bibasilar atelectasis. There is probably a small left pleural effusion, the appearance of which is unchanged. No definite right pleural effusion. No pneumothorax. Stable cardiomegaly. Electronically signed by: Rei Guzman MD, PHD Narrative 02/10/2025 7:12 AM CDT EXAMINATION: XR CHEST 1 VIEW HISTORY: pleural effusion COMPARISON: 02/09/2025 Procedure Note Rei Guzman MD PhD - 02/10/2025 EXAMINATION: XR CHEST 1 VIEW HISTORY: pleural effusion COMPARISON: 02/09/2025 IMPRESSION: Sternotomy wires are unchanged. Transcatheter tricuspid valve are demonstrated. The lung volumes are small and slightly decreased from the prior exam with increased moderate bibasilar atelectasis. There is probably a small left pleural effusion, the appearance of which is unchanged. No definite right pleural effusion. No pneumothorax. Stable cardiomegaly. Electronically signed by: Rei Guzman MD, PHD Ilsa Chu EMS DIRECTOR IMG XR PROCEDURES Final Result * (ABNORMAL) eGFR (02/10/2025 3:02 AM CDT) eGFR 52(L) >=60 mL/min/1. 73 m2 Comment: Interpretive Data [...] interpretive data was last reviewed 2021. Blood 02/10/2025 3:02 AM CDT 02/10/2025 3:16 AM CDT [facility]rough [facility] LAB BLOOD ORDERABLES Fin al Result Performing Organization Address City/[facility]/ZIP Co de Phone Number [facility] [address] [facility] [place] [address] * Calcium, ionized (02/10/2025 3:02 AM CDT) [facility] Calcium, Ionized 4.84 4.50 - 5.10 mg/dL Blood 02/10/2025 3:02 AM CDT 02/10/2025 3:08 AM CDT Ilsa Yarbrough [facility] LAB BLOOD ORDERABLES Fin al Result Performing Organization Address [facility] Co de Phone Number [facility] [address] [facility] [place] [address] * (ABNORMAL) CBC without differential (02/10/2025 3:02 AM CDT) [facility] WBC 1.53(L) 3.80 - 9.90 K/cumm Hgb 8.6(L) 13.0 - 17.5 g/dL [facility] Hct 27.4(L) 38.9 - 50.3 % [facility] Plt 65(L) 150 - 400 K/cumm [facility] MPV 10.3 9.1 - 12.3 fL [facility] RBC 3.11(L) 4.30 - 5.80 M/cumm [facility] MCV 88.1 81.3 - 96.4 fL [facility] MCH 27.7 27.1 - 33.3 pg [facility] MCHC 31.4(L) 32.3 - 35.7 g/dL [facility] RDW CV 17.5(H) 11.1 - 14.9 % [facility] RDW SD 56.9(H) 35.7 - 48.1 fL [facility] NRBC abs 0.00 0.00 - 0.01 K/cumm [facility] Blood 02/10/2025 3:02 AM CDT 02/10/2025 3:16 AM CDT [facility] DIRECT[facility] LAB BLOOD ORDERABLES Fin al Result Performing Organization Address City/[facility] Co de Phone Number [facility] [address] [facility] [place] [address] * Magnesium (02/10/2025 3:02 AM CDT) [facility] Magnesium 2.0 1.4 - 2.5 mg/dL Blood 02/10/2025 3:02 AM CDT 02/10/2025 3:16 AM CDT [facility] EMS DIRECTOR LAB BLOOD ORDERABLES Fin al Result Performing Organization Address [facility] de Phone Number [facility] [address] [facility] [place] [address] * (ABNORMAL) Renal function panel (02/10/2025 3:02 AM CDT) Pathologist [facility] Sodium 135 135 - 145 mmol/L Potassium, pl 4.3 3.3 - 4.9 mmol/L [facility] Chloride 102 97 - 110 mmol/L [facility] CO2 20(L) 22 - 32 mmol/L [facility] Anion gap 13 2 - 15 mmol/L [facility] BUN 38(H) 6 - 25 mg/dL [facility] Creatinine 1.42(H) 0.80 - 1.30 mg/dL [facility] Glucose 90 70 - 199 mg/dL [facility] Comment: Interpretive Data Fasting glucose [...] interpretive data was last revised 2022. Calcium 8.6 8.5 - 10.3 mg/dL [facility] Phosphorus, pl 3.3 2.3 - 4.5 mg/dL [facility] Albumin 3.4(L) 3.5 - 5.0 g/dL [facility] Blood 02/10/2025 3:02 AM CDT 02/10/2025 3:16 AM CDT Ilsa Chu NP LAB BLOOD ORDERABLES Fin al Result [facility] [address] Department [place] [address] * XR Chest 1 View - Portable - in AM (02/09/2025 6:46 AM CDT) Anatomical Region Laterality Modality Body, Chest N/A Computed Radiogr aphy 02/09/2025 7:07 AM CDT Impressions 02/09/2025 7:07 AM CDT Sternotomy wires are unchanged. Transcatheter tricuspid valve is again seen. There is increased but still mild bibasilar atelectasis and possibly a small left pleural effusion. No pneumothorax. Stable enlargement of the cardiac silhouette. Electronically signed by: Rei Guzman MD, PHD Narrative 02/09/2025 7:07 AM CDT EXAMINATION: XR CHEST 1 VIEW HISTORY: pleural effusion COMPARISON: 02/08/2025 Procedure Note Rei Guzman MD PhD - 02/09/2025 EXAMINATION: XR CHEST 1 VIEW HISTORY: pleural effusion COMPARISON: 02/08/2025 IMPRESSION: Sternotomy wires are unchanged. Transcatheter tricuspid valve is again seen. There is increased but still mild bibasilar atelectasis and possibly a small left pleural effusion. No pneumothorax. Stable enlargement of the cardiac silhouette. Electronically signed by: Rei Guzman MD, PHD Ilsa Chu NP IMG XR PROCEDURES Final Result * (ABNORMAL) eGFR (02/09/2025 12:46 AM CDT) eGFR 42(L) >=60 mL/min/1. 73 m2 Comment: Interpretive Data [...] interpretive data was last reviewed 2021. Blood 02/09/2025 12:4 6 AM CDT 02/09/2025 1:18 AM CDT Ilsa Chu NP LAB BLOOD ORDERABLES Fin al Result [facility] [address] [place] [address] * Calcium, ionized (02/09/2025 12:46 AM CDT) Calcium, Ionized 4.90 4.50 - 5.10 mg/dL Blood 02/09/2025 12:4 6 AM CDT 02/09/2025 1:08 AM CDT Ilsa Yarbrough T[facility]or EMS DIRECTOR LAB BLOOD ORDERABLES Fin al Result Performing Organization Address City/[facility]/ZIP Co de Phone Number [facility] [address] [employer] [place] [address] * (ABNORMAL) CBC without differential (02/09/2025 12:46 AM CDT) WBC 1.83(L) 3.80 - 9.90 K/cumm Hgb 8.8(L) 13.0 - 17.5 g/dL [facility] Hct 29.0(L) 38.9 - 50.3 % [facility] Plt 66(L) 150 - 400 K/cumm [facility] MPV 9.8 9.1 - 12.3 fL [facility] RBC 3.20(L) 4.30 - 5.80 M/cumm [facility] MCV 90.6 81.3 - 96.4 fL [facility] MCH 27.5 27.1 - 33.3 pg [facility] MCHC 30.3(L) 32.3 - 35.7 g/dL [facility] RDW CV 17.7(H) 11.1 - 14.9 % [facility] RDW SD 59.0(H) 35.7 - 48.1 fL [facility] NRBC abs 0.00 0.00 - 0.01 K/cumm [facility] Blood 02/09/2025 12:4 6 AM CDT 02/09/2025 1:18 AM CDT Ilsa Pinaor EMS DIRECTOR LAB BLOOD ORDERABLES Fin al Result [facility] [address] [employer] [place], [place] [id number] * Magnesium (02/09/2025 12:46 AM CDT) Magnesium 2.2 1.4 - 2.5 mg/dL Blood 02/09/2025 12:4 6 AM CDT 02/09/2025 1:18 AM CDT Ilsa Chu EMS DIRECTOR LAB BLOOD ORDERABLES Fin al Result Performing Organization Address [facility]/ZIP Co de Phone Number [facility] [address] Department [place] [address] * (ABNORMAL) Renal function panel (02/09/2025 12:46 AM CDT) Pathologist [facility] Sodium 139 135 - 145 mmol/L Potassium, pl 4.6 3.3 - 4.9 mmol/L [facility] Chloride 105 97 - 110 mmol/L [facility] CO2 20(L) 22 - 32 mmol/L [facility] Anion gap 14 2 - 15 mmol/L [facility] BUN 41(H) 6 - 25 mg/dL [facility] Creatinine 1.67(H) 0.80 - 1.30 mg/dL [facility] Glucose 90 70 - 199 mg/dL [facility] Comment: Interpretive Data Fasting glucose [...] interpretive data was last revised 2022. Calcium 9.0 8.5 - 10.3 mg/dL [facility] Phosphorus, pl 3.5 2.3 - 4.5 mg/dL [facility] Albumin 3.4(L) 3.5 - 5.0 g/dL [facility] Blood 02/09/2025 12:4 6 AM CDT 02/09/2025 1:18 AM CDT Ilsa Chu EMS DIRECTOR LAB BLOOD ORDERABLES Fin al Result Performing Organization Address [facility]/ZIP Co de Phone Number [facility] [address] [place] [address] * TRANSTHORACIC ECHO (TTE) LIMITED/FOLLOW UP W LTD DOPPLER/CF WO CONTRAST (02/08/2025 10:21 AM CDT) Anatomical Region Laterality Modality Ultrasound 02/08/2025 7:50 AM CDT Narrative 02/08/2025 10:28 AM CDT [facility] [address] [place] [address] LIMITED ECHOCARDIOGRAM Patient Name: KAMRON CHAUDHARY : 1950 (74y 9m) Gender: M Study Date: 02/08/2025 07:50:46 AM Ht(Inch): 70 Wt(Lb): 253.99 BSA: 2.39 Blending Coordinator: Location: [id number] Order Provider: ILSA CHU BMI: 36.44 BP: 125/62 Ref Provider: ILSA CHU - PROCEDURES: Echocardiographic Report: Limited TTE. INDICATIONS: s/p Evoque. FINDINGS: BP: Blood pressure: 125/62 mmHg. Left Ventricle: Grossly normal left ventricular systolic function based on limited views. Inadequate for detailed regional wall motion assessment. Right Ventricle: Mild to moderate right ventricular dysfunction. Mitral Valve: Grossly normal appearing mitral valve. Aortic Valve: Grossly normal appearing aortic valve. Tricuspid Valve: Normal functioning bioprosthetic tricuspid valve. Pericardium: No significant pericardial effusion. CONCLUSIONS: 1. Grossly normal left ventricular systolic function based on limited views. Inadequate for detailed regional wall motion assessment. 2. Mild to moderate right ventricular dysfunction. 3. Grossly normal appearing mitral valve. 4. Grossly normal appearing aortic valve. 5. Normal functioning bioprosthetic tricuspid valve. 6. No significant pericardial effusion. Electronically Signed By: Edward Mckeon MD 02/08/2025 10:27:41 AM CDT Procedure Note Edward Mckeon MD - 02/08/2025 [facility] [address] [place] [address] LIMITED ECHOCARDIOGRAM Patient Name: KAMRON CHAUDHARY : 1950 (74y 9m) Gender: M Study Date: 02/08/2025 07:50:46 AM Ht(Inch): 70 Wt(Lb): 253.99 BSA: 2.39 Blending Coordinator: Location: [id number] Order Provider: ILSA CHU BMI: 36.44 BP: 125/62 Ref Provider: ILSA CHU - PROCEDURES: Echocardiographic Report: Limited TTE. INDICATIONS: s/p Evoque. FINDINGS: BP: Blood pressure: 125/62 mmHg. Left Ventricle: Grossly normal left ventricular systolic function based onlimited views. Inadequate for detailed regional wall motion assessment. Right Ventricle: Mild to moderate right ventricular dysfunction. Mitral Valve: Grossly normal appearing mitral valve. Aortic Valve: Grossly normal appearing aortic valve. Tricuspid Valve: Normal functioning bioprosthetic tricuspid valve. Pericardium: No significant pericardial effusion. CONCLUSIONS: 1. Grossly normal left ventricular systolic function based on limitedviews. Inadequate for detailed regional wall motion assessment. 2. Mild to moderate right ventricular dysfunction. 3. Grossly normal appearing mitral valve. 4. Grossly normal appearing aortic valve. 5. Normal functioning bioprosthetic tricuspid valve. 6. No significant pericardial effusion. Electronically Signed By: Edward Mckeon MD 02/08/2025 10:27:41 AM CDT Ilsa Chu NP CV ECHO PROCEDURES Final Result * XR Chest 1 View - Portable - in AM (02/08/2025 6:49 AM CDT) Anatomical Region Laterality Modality Body, Chest N/A Computed Radiogr aphy 02/08/2025 8:01 AM CDT Impressions 02/08/2025 8:01 AM CDT Redemonstrated are postoperative changes of median sternotomy. A left atrial appendage occlusion device is poorly visualized on this radiograph. Epicardial pacing wires are present. The lung volumes remain small with mild bibasilar atelectasis. There may be a trace left pleural effusion which is improved from prior. No pneumothorax is identified. The cardiomediastinal silhouette is unchanged with unchanged cardiomegaly. Electronically signed by: Segundo Sands M.D. Narrative 02/08/2025 8:01 AM CDT EXAMINATION: XR CHEST 1 VIEW COMPARISON: 02/07/2025 2:11 PM Procedure Note Segundo Sands MD PhD - 02/08/2025 EXAMINATION: XR CHEST 1 VIEW COMPARISON: 02/07/2025 2:11 PM IMPRESSION: Redemonstrated are postoperative changes of median sternotomy. A left atrial appendage occlusion device is poorly visualized on this radiograph. Epicardial pacing wires are present. The lung volumes remain small with mild bibasilar atelectasis. There may be a trace left pleural effusion which is improved from prior. No pneumothorax is identified. The cardiomediastinal silhouette is unchanged with unchanged cardiomegaly. Electronically signed by: Segundo Sands M.D. Ilsa Chu NP IMG XR PROCEDURES Final Result * Critical Care (02/08/2025 6:37 AM CDT) Narrative Dorian Cope MD - 02/08/2025 6:37 AM CDT Dorian Cope MD 02/08/2025 2:55 PM Critical Care Performed by: Ilsa Chu NP Authorized by: Ilsa Chu NP CRITICAL CARE: Team: [facility] Shift: AM Level of Billing: Subsequent Hospital Visit Level 3 My time spent with this patient was 40 minutes: Critical Provider Statement: I have seen and examined the patient on this day of service. I have reviewed and confirmed the history, physical exam, laboratory, and radiographic data as documented in the ICU note. I have reviewed and discussed my treatment plan with the patient's team and other medical/business information consultant staff. This time was in addition to and separate from care provided by other practitioners on this day of service. us Ilsa Chu NP IN CLINIC/BEDSIDE ORDERA BLES Final Result * (ABNORMAL) eGFR (02/08/2025 3:11 AM CDT) eGFR 46(L) >=60 mL/min/1. 73 m2 Comment: Interpretive Data [...] interpretive data was last reviewed 2021. Blood 02/08/2025 3:11 AM CDT 02/08/2025 3:21 AM CDT us Ilsa Chu NP LAB BLOOD ORDERABLES Fin al Result [facility] [address] [place] [address] * (ABNORMAL) CBC without differential (02/08/2025 3:11 AM CDT) WBC 1.91(L) 3.80 - 9.90 K/cumm Hgb 9.0(L) 13.0 - 17.5 g/dL [facility] Hct 29.0(L) 38.9 - 50.3 % [facility] Plt 70(L) 150 - 400 K/cumm [facility] MPV 9.8 9.1 - 12.3 fL [facility] RBC 3.25(L) 4.30 - 5.80 M/cumm [facility] MCV 89.2 81.3 - 96.4 fL [facility] MCH 27.7 27.1 - 33.3 pg [facility] MCHC 31.0(L) 32.3 - 35.7 g/dL [facility] RDW CV 18.1(H) 11.1 - 14.9 % [facility] RDW SD 59.6(H) 35.7 - 48.1 fL [facility] NRBC abs 0.00 0.00 - 0.01 K/cumm [facility] Blood 02/08/2025 3:11 AM CDT 02/08/2025 3:20 AM CDT Ilsa Pinaga EMS DIRECTOR LAB BLOOD ORDERABLES Fin al Result Performing Organization Address [facility] de Phone Number [place] [address] [facility] [place], [place] [id number] * Phosphorus (02/08/2025 3:11 AM CDT) [facility] Phosphorus, pl 3.7 2.3 - 4.5 mg/dL Blood 02/08/2025 3:11 AM CDT 02/08/2025 3:21 AM CDT [facility] LAB BLOOD ORDERABLES Fin al Result Performing Organization Address [facility] de Phone Number [facility] [address] [facility] [place] [address] * Magnesium (02/08/2025 3:11 AM CDT) Pathologist [facility] Magnesium 2.3 1.4 - 2.5 mg/dL Blood 02/08/2025 3:11 AM CDT 02/08/2025 3:21 AM CDT [facility] LAB BLOOD ORDERABLES Fin al Result Performing Organization Address City/[facility]/ZIP Co de Phone Number [facility] [address] Department [place] [address] * Bilirubin, direct (02/08/2025 3:11 AM CDT) [facility] Bilirubin, direct 0.2 0.1 - 0.3 mg/dL Blood 02/08/2025 3:11 AM CDT 02/08/2025 3:21 AM CDT [facility] EMS DIRECTOR LAB BLOOD ORDERABLES Fin al Result Performing Organization Address [facility] de Phone Number [facility] [address] [facility] [place] [address] * (ABNORMAL) Comprehensive metabolic panel (02/08/2025 3:11 AM CDT) [facility] Sodium 140 135 - 145 mmol/L Potassium, pl 4.4 3.3 - 4.9 mmol/L [facility] Chloride 107 97 - 110 mmol/L [facility] CO2 20(L) 22 - 32 mmol/L [facility] Anion gap 13 2 - 15 mmol/L [facility] BUN 43(H) 6 - 25 mg/dL [facility] Creatinine 1.55(H) 0.80 - 1.30 mg/dL [facility] Glucose 93 70 - 199 mg/dL [facility] Comment: Interpretive Data Fasting glucose [...] interpretive data was last revised 2022. Calcium 8.5 8.5 - 10.3 mg/dL [facility] Bilirubin, total 0.6 0.1 - 1.2 mg/dL [facility] Protein, pl 6.4(L) 6.5 - 8.5 g/dL [facility] Albumin 3.6 3.5 - 5.0 g/dL [facility] Alk phos 51 40 - 130 Units/L [facility] ALT 9 7 - 55 Units/L [facility] AST 22 10 - 50 Units/L [facility] Blood 02/08/2025 3:11 AM CDT 02/08/2025 3:21 AM CDT Ilsa Chu NP LAB BLOOD ORDERABLES Fin al Result [facility] [address] Department [place] [address] * POCT glucose (02/08/2025 2:59 AM CDT) [facility] Glucose, POC 91 70 - 199 mg/dL Comment: For Glucose values <35 mg/dl when Hematocrit is >60 mg/dl,the test may not accurately detect significant hypoglycemia,and testing in the Laboratory should be considered if clinically indicated. POC Performer [phone] [facility] Blood 02/08/2025 2:59 AM CDT 02/08/2025 2:59 AM CDT Edward Mckeon MD LAB POCT ORDERABLES - DEVICE Fin al Result [facility] [address] Department [place] [address] * (ABNORMAL) Calcium, ionized (02/08/2025 2:56 AM CDT) Calcium, Ionized 4.37(L) 4.50 - 5.10 mg/dL Blood 02/08/2025 2:56 AM CDT 02/08/2025 3:05 AM CDT Ilsa Chu EMS DIRECTOR LAB BLOOD ORDERABLES Fin al Result [facility] [address] Department [place] [address] * Critical Care (02/07/2025 10:17 PM CDT) Narrative Aby Julian NP - 02/07/2025 10:17 PM CDT Aby Julian NP 02/08/2025 5:23 AM Critical Care Performed by: Aby Julian NP Authorized by: Aby Julian NP CRITICAL CARE: Team: [facility] Shift: PM Level of Billing: Subsequent Hospital Visit Level 3 My time spent with this patient was 45 minutes: Critical Provider Statement: I have seen and examined the patient on this day of service. I have reviewed and confirmed the history, physical exam, laboratory, and radiographic data as documented in the ICU note. I have reviewed and discussed my treatment plan with the patient's team and other medical/business information consultant staff. This time was in addition to and separate from care provided by other practitioners on this day of service. I spent time reviewing and interpreting data from bedside monitors, laboratory results, and imaging, I spent time discussing the management of this critically ill patient with consultants and the medical staff and I spent time documenting in the medical record us Aby Julian EMS DIRECTOR IN CLINIC/BEDSIDE ORDERAB LES Final Result * XR Chest 1 View - Portable (02/07/2025 2:20 PM CDT) Anatomical Region Laterality Modality Body, Chest N/A Computed Radiogr aphy 02/07/2025 2:36 PM CDT Impressions 02/07/2025 2:36 PM CDT Comparison chest radiograph 09/24/2018 and T2 chest 01/03/2025. Median sternotomy wires are intact and in alignment. Replaced tricuspid valve not well visualized. There may be mild pulmonary edema with small bilateral pleural effusions. Mild bibasilar atelectasis. No pneumothorax. Unchanged cardiomegaly. Electronically signed by: Navid Becerra MD, PHD Narrative 02/07/2025 2:36 PM CDT EXAMINATION: XR CHEST 1 VIEW Procedure Note Navid Becerra MD PhD - 02/07/2025 EXAMINATION: XR CHEST 1 VIEW IMPRESSION: Comparison chest radiograph 09/24/2018 and T2 chest 01/03/2025. Median sternotomy wires are intact and in alignment. Replaced tricuspid valve not well visualized. There may be mild pulmonary edema with small bilateral pleural effusions. Mild bibasilar atelectasis. No pneumothorax. Unchanged cardiomegaly. Electronically signed by: Navid Becerra MD, PHD Ilsa Chu EMS DIRECTOR IMG XR PROCEDURES Final Result * Critical Care (02/07/2025 2:05 PM CDT) Narrative Dorian Cope MD - 02/07/2025 2:05 PM CDT Dorian Cope MD 02/07/2025 4:01 PM Critical Care Performed by: Ilsa Chu NP Authorized by: Ilsa Chu NP CRITICAL CARE: Team: [facility] CT Shift: AM Level of Billing: Initial Hospital Visit Level 3 My time spent with this patient was 80 minutes: Critical Provider Statement: I have seen and examined the patient on this day of service. I have reviewed and confirmed the history, physical exam, laboratory, and radiographic data as documented in the ICU note. I have reviewed and discussed my treatment plan with the patient's team and other medical/business information consultant staff. This time was in addition to and separate from care provided by other practitioners on this day of service. us Ilsa Chu NP IN CLINIC/BEDSIDE ORDERA BLES Final Result * POCT glucose (02/07/2025 1:11 PM CDT) Glucose, POC 126 70 - 199 mg/dL Comment: For Glucose values <35 mg/dl when Hematocrit is >60 mg/dl,the test may not accurately detect significant hypoglycemia,and testing in the Laboratory should be considered if clinically indicated. POC Performer [id number] [facility] Blood 02/07/2025 1:11 PM CDT 02/07/2025 1:11 PM CDT Edward Mckeon MD LAB POCT ORDERABLES - DEVICE Fin al Result Performing Organization Address [facility] Co de Phone Number [facility] [address] [place] [employer] [place] [address] * (ABNORMAL) eGFR (02/07/2025 1:05 PM CDT) eGFR 44(L) >=60 mL/min/1. 73 m2 Comment: Interpretive Data [...] interpretive data was last reviewed 2021. Blood 02/07/2025 1:05 PM CDT 02/07/2025 1:16 PM CDT Ilsa Chu NP LAB BLOOD ORDERABLES Fin al Result Performing Organization Address City/[facility]/ZIP Co de Phone Number [facility] [address] [place] [address] * Calcium, ionized (02/07/2025 1:05 PM CDT) Calcium, Ionized 4.61 4.50 - 5.10 mg/dL Blood 02/07/2025 1:05 PM CDT 02/07/2025 1:14 PM CDT [facility]LOOD [facility] Fin al Result Performing Organization Address [facility] de Phone Number [facility] [address] [place] [address] * (ABNORMAL) aPTT (02/07/2025 1:05 PM CDT) aPTT 40(H) 28 - 38 sec Comment: Interpretive Data Heparin therapeutic range: 66.0 - 100.0 seconds. Range based on correlation with therapeutic heparin activity range of 0.3 - 0.7 Units/mL. Current interpretive data was last revised on 2023. Blood 02/07/2025 1:05 PM CDT 02/07/2025 1:16 PM CDT [facility] BLOOD ORDERABLES Fin al Result Performing Organization Address [facility] de Phone Number [facility] [address] Department [place] [address] * (ABNORMAL) Protime-INR (02/07/2025 1:05 PM CDT) PT 15.5(H) 9.7 - 13.0 sec INR 1.42(H) 0.90 - 1.20 [facility] Comment: Interpretive data Oral anticoagulant therapeutic ranges: Venous thromboembolism prophylaxis or treatment: 2.0-3.0 CARDIOLOGY Standard range: 2.0-3.0 High-intensity range: 2.5-3.5 Refer to indication-specific guidelines for appropriate target ranges for prosthetic heart valve replacement. Current interpretive data was last revised on 2019. Blood 02/07/2025 1:05 PM CDT 02/07/2025 1:16 PM CDT Ilsa Yarbrough Tonsor EMS DIRECTOR LAB BLOOD ORDERABLES Fin al Result Performing Organization Address [facility] Co de Phone Number [facility] [address] [employer] [place], [place] [id number] * (ABNORMAL) CBC without differential (02/07/2025 1:05 PM CDT) [facility] WBC 1.59(L) 3.80 - 9.90 K/cumm Hgb 9.4(L) 13.0 - 17.5 g/dL [facility] Hct 29.8(L) 38.9 - 50.3 % [facility] Plt 67(L) 150 - 400 K/cumm [facility] MPV 9.9 9.1 - 12.3 fL [facility] RBC 3.38(L) 4.30 - 5.80 M/cumm [facility] MCV 88.2 81.3 - 96.4 fL [facility] MCH 27.8 27.1 - 33.3 pg [facility] MCHC 31.5(L) 32.3 - 35.7 g/dL [facility] RDW CV 18.5(H) 11.1 - 14.9 % [facility] RDW SD 59.4(H) 35.7 - 48.1 fL [facility] NRBC abs 0.00 0.00 - 0.01 K/cumm [facility] Blood 02/07/2025 1:05 PM CDT 02/07/2025 1:16 PM CDT Ilsa Pinaor EMS DIRECTOR LAB BLOOD ORDERABLES Fin al Result Performing Organization Address [facility]/ZIP Co de Phone Number [facility] [address] Department [place] [address] * Phosphorus (02/07/2025 1:05 PM CDT) Pathologist [facility] Phosphorus, pl 4.0 2.3 - 4.5 mg/dL Blood 02/07/2025 1:05 PM CDT 02/07/2025 1:16 PM CDT Ilsa Linnea Tonsor EMS DIRECTOR LAB BLOOD ORDERABLES Fin al Result Performing Organization Address [facility] Co de Phone Number [facility] [address] [facility] [place], [place] [id number] * Magnesium (02/07/2025 1:05 PM CDT) [facility] Magnesium 2.4 1.4 - 2.5 mg/dL Blood 02/07/2025 1:05 PM CDT 02/07/2025 1:16 PM CDT [facility] LAB BLOOD ORDERABLES Fin al Result Performing Organization Address [facility] de Phone Number [facility] [address] [facility] [place] [address] * (ABNORMAL) Basic metabolic panel (02/07/2025 1:05 PM CDT) [facility] Sodium 139 135 - 145 mmol/L Potassium, pl 4.1 3.3 - 4.9 mmol/L [facility] Chloride 106 97 - 110 mmol/L [facility] CO2 20(L) 22 - 32 mmol/L [facility] Anion gap 13 2 - 15 mmol/L [facility] BUN 43(H) 6 - 25 mg/dL [facility] Creatinine 1.62(H) 0.80 - 1.30 mg/dL [facility] Glucose 130 70 - 199 mg/dL [facility] Comment: Interpretive Data Fasting glucose [...] interpretive data was last revised 2022. Calcium 8.8 8.5 - 10.3 mg/dL [facility] Blood 02/07/2025 1:05 PM CDT 02/07/2025 1:16 PM CDT us Ilsa Chu EMS DIRECTOR LAB BLOOD ORDERABLES Fin al Result [facility] [address] Department of Laboratories [place], [place] [id number] * TRANSCATHETER TRICUSPID VALVE IMPLANT (02/07/2025 12:47 PM CDT) Anatomical Region Laterality Modality X-Ray Angiograph y Narrative 02/07/2025 11:53 AM CDT Please see OpNote for result. Manny Villeda MD CV CARDIAC CATH PROCEDUR ES Final Result * TRANSCATHETER TRICUSPID VALVE IMPLANT (02/07/2025 12:47 PM CDT) Anatomical Region Laterality Modality X-Ray Angiograph y Narrative 02/07/2025 12:55 PM CDT Images from the original result were not included. [facility] [address] [facility], [id number], [address] Transcatheter Tricuspid Valve Replacement Procedure Report 74 y.o. year old male with severe nonrheumatic tricuspid regurgitation referred for transcatheter tricuspid valve replacement Attending physicians: Manny Villeda MD, Edward Mckeon MD, Bhavesh Washington MD Access:8F Right Femoral Vein ->28F Catheter: Agilis , Evoque Injection: None Closure:Perclose Anticoagulation: [id number] Heparin Air Kerma:382 mGy Fluoro time:10.9 min Contrast:None Sedation:per anesthesia Estimated blood Loss: minimal Preprocedural Diagnosis: Tricuspid regurgitation Postprocedural Diagnosis: Tricuspid regurgitation Procedural details: After risks, benefits, and alternatives to the procedure were explained to the patient, they agreed to proceed. After signing informed consent the patient was brought to the cardiac catheterization laboratory/hybrid OR. They were prepped and draped in sterile fashion. Harish guidance was performed by Dr. Washington. All access was obtained with the modified Seldinger technique, micropuncture access, and ultrasound guidance. We placed an 8 Cymraes sheath in the Right Femoral Vein. This sheath was pre closed with 2 perpendicular Perclose devices. We then advanced an Agilis catheter from the vein and advanced a safari wire to the right ventricular apex. We then upsized the right femoral venous sheath to a 28 Cymraes sheath using serial dilatation. We then advanced a 56 mm Evoque valve. The valve was deployed after positioning with HARISH and under fluoroscopic guidance. Transesophageal ECHO postprocedure demonstrated trace perivalvular leak. The sheaths were removed and hemostasis was achieved. Patient will be transferred to the recovery unit for further management and care. A/P: Successful implantation of a 56 mm Evoque valve in tricuspid position with general anesthesia and HARISH guidance. Patient will continue aspirin and Eliquis for at least 6 months. Plan echocardiogram tomorrow. Further management per the heart team. Edward Mckeon MD 02/07/25 12:52 PM us Edward Mckeon MD CV CARDIAC CATH PROCEDURES Final Result * HARISH Guidance [place] [id number] (02/07/2025 12:42 PM CDT) Anatomical Region Laterality Modality Ultrasound 02/07/2025 11:1 7 AM CDT Narrative 02/07/2025 2:13 PM CDT [facility] [address] [place] [address] TRANSESOPHAGEAL ECHOCARDIOGRAM Patient Name: KAMRON CHAUDHARY : 1950 (74y 9m) Gender: M Study Date: 02/07/2025 11:17:40 AM Ht(Inch): 70 Wt(Lb): 275.6 BSA: 2.48 Blending Coordinator: MIRANDA Location: [address] Order Provider: EDWARD MCKEON BMI: 39.54 BP: 122/60 Ref Provider: EDWARD MCKEON PROCEDURES: Transesophageal Echo Report: Transesophageal echocardiogram including 2D imaging, spectral doppler and color doppler was performed in the cardiac catheterization laboratory to support a structural procedure. The procedure was monitored with automatic blood pressure monitoring, ECG tracings, and pulse oximetry. Sedation was achieved by anesthesia using Propofol IV. The transesophageal probe was placed in the esophagus posterior to the heart without any complications. The patient tolerated the procedure well. INDICATIONS: Tricuspid valve disease. MEASUREMENTS: 2D/MM Value Range Estimated EF 65 % 2D/MM Value Range FINDINGS: BP: Blood pressure: 122/60 mmHg. Left Ventricle: Normal global and regional left ventricular systolic function. Ejection Fraction is estimated to be 65 %. Normal left ventricular cavity size. Right Ventricle: Mild enlargement of right ventricle. Moderate right ventricular hypokinesis. Left Atrium: There is marked enlargement of the left atrium. LA Appendage: There is a left atrial appendage occlusion device in-situ. It appears well-seated. There is no thrombus on the external surface of the device. There is no color Doppler flow around the device. Right Atrium: There is marked enlargement of the right atrium. Atrial Septum: Normal atrial septum. Mitral Valve: Normal appearance of the mitral valve. Mild mitral valve regurgitation. There is no evidence for significant mitral stenosis. Aortic Valve: Normal appearance and function of the aortic valve. Trileaflet aortic valve. Tricuspid Valve: At the beginning of the case there was torrential tricuspid regurgitation and no tricuspid stenosis. During the case transcatheter tricuspid valve replacement was successfully performed. The tricuspid valve prosthesis appeared to be well-seated after deployment. At the conclusion of the case there was trace tricuspid regurgitation and no tricuspid stenosis. There is mild pulmonary hypertension. Pulmonic Valve: Grossly normal appearing pulmonic valve. No pulmonic stenosis. There is mild pulmonic regurgitation. Pericardium: Small pericardial effusion. Aorta: Normal aortic root size. Normal size descending thoracic aorta. Pulmonary Artery: Mild enlargement of the pulmonary artery. CONCLUSIONS: 1. Normal global and regional left ventricular systolic function. Ejection Fraction is estimated to be 65 %. Normal left ventricular cavity size. 2. Mild enlargement of right ventricle. Moderate right ventricular hypokinesis. 3. There is marked enlargement of the left atrium. 4. There is marked enlargement of the right atrium. 5. At the beginning of the case there was torrential tricuspid regurgitation and no tricuspid stenosis. During the case transcatheter tricuspid valve replacement was successfully performed. The tricuspid valve prosthesis appeared to be well- seated after deployment. At the conclusion of the case there was trace tricuspid regurgitation and no tricuspid stenosis. There is mild pulmonary hypertension. 6. Small pericardial effusion. 7. There is a left atrial appendage occlusion device in-situ. It appears well- seated. There is no thrombus on the external surface of the device. There is no color Doppler flow around the device. Electronically Signed By: Bhavesh cole 02/07/2025 1:25:17 PM CDT Procedure Note Bhavesh Washington MD - 02/07/[address] [address] TRANSESOPHAGEAL ECHOCARDIOGRAM Patient Name: KAMRON CHAUDHARY : 1950 (74y 9m) Gender: M Study Date: 02/07/2025 11:17:40 AM Ht(Inch): 70 Wt(Lb): 275.6 BSA: 2.48 Blending Coordinator: MIRANDA Location: [address] Order Provider: EDWARD MCKEON BMI: 39.54 BP: 122/60 Ref Provider: EDWARD MCKEON PROCEDURES: Transesophageal Echo Report: Transesophageal echocardiogram including 2Dimaging, spectral doppler and color doppler was performed in the cardiaccatheterization laboratory to support a structural procedure. The procedure was monitoredwith automatic blood pressure monitoring, ECG tracings, and pulse oximetry. Sedation wasachieved by anesthesia using Propofol IV. The transesophageal probe was placed in theesophagus posterior to the heart without any complications. The patient toleratedthe procedure well. INDICATIONS: Tricuspid valve disease. MEASUREMENTS: 2D/MM Value Range Estimated EF 65 % 2D/MM Value Range FINDINGS: BP: Blood pressure: 122/60 mmHg. Left Ventricle: Normal global and regional left ventricular systolicfunction. Ejection Fraction is estimated to be 65 %. Normal left ventricular cavity size. Right Ventricle: Mild enlargement of right ventricle. Moderate rightventricular hypokinesis. Left Atrium: There is marked enlargement of the left atrium. LA Appendage: There is a left atrial appendage occlusion device in-situ.It appears well-seated. There is no thrombus on the external surface of the device.There is no color Doppler flow around the device. Right Atrium: There is marked enlargement of the right atrium. Atrial Septum: Normal atrial septum. Mitral Valve: Normal appearance of the mitral valve. Mild mitral valveregurgitation. There is no evidence for significant mitral stenosis. Aortic Valve: Normal appearance and function of the aortic valve.Trileaflet aortic valve. Tricuspid Valve: At the beginning of the case there was torrentialtricuspid regurgitation and no tricuspid stenosis. During the case transcathetertricuspid valve replacement was successfully performed. The tricuspid valve prosthesisappeared to be well-seated after deployment. At the conclusion of the case there wastrace tricuspid regurgitation and no tricuspid stenosis. There is mild pulmonaryhypertension. Pulmonic Valve: Grossly normal appearing pulmonic valve. No pulmonicstenosis. There is mild pulmonic regurgitation. Pericardium: Small pericardial effusion. Aorta: Normal aortic root size. Normal size descending thoracic aorta. Pulmonary Artery: Mild enlargement of the pulmonary artery. CONCLUSIONS: 1. Normal global and regional left ventricular systolic function. EjectionFraction is estimated to be 65 %. Normal left ventricular cavity size. 2. Mild enlargement of right ventricle. Moderate right ventricularhypokinesis. 3. There is marked enlargement of the left atrium. 4. There is marked enlargement of the right atrium. 5. At the beginning of the case there was torrential tricuspidregurgitation and no tricuspid stenosis. During the case transcatheter tricuspid valvereplacement was successfully performed. The tricuspid valve prosthesis appeared to bewell-seated after deployment. At the conclusion of the case there was trace tricuspidregurgitation and no tricuspid stenosis. There is mild pulmonary hypertension. 6. Small pericardial effusion. 7. There is a left atrial appendage occlusion device in-situ. It appearswell- seated. There is no thrombus on the external surface of the device. There is nocolor Doppler flow around the device. Electronically Signed By: Bhavesh Washington MD [employer] 02/07/2025 1:25:17 PM CDT us Edward Mckeon MD CV ECHO PROCEDURES Final Result * (ABNORMAL) POC Activated Clotting Time, High Range (02/07/2025 11:55 AM CDT) ACT 359(H) 87 - 138 sec POC Performer [id number] [facility] Blood 02/07/2025 11:5 5 AM CDT 02/07/2025 11:55 AM CDT us Edward Mckeon MD LAB BLOOD ORDERABLES Final Resul t [facility] [address] Department of Laboratories [place], [place] [id number] * OR AN ELECTIVE ENDOTRACHEAL AIRWAY, OR AN PROCEDURE PLACEHOLDER (02/07/2025 11:28 AM CDT) Narrative Muriel Orta MD - 02/07/2025 11:28 AM CDT Muriel Orta MD 02/07/2025 11:28 AM Airway Patient location: OR Urgency: elective Indications for airway management: anesthesia Difficult airway: no Staff: Supervising provider: Muriel Orta MD Emergent airway documentation: Risks and benefits discussed: yes Consent obtained: yes Consent given by: patient Airway prep: Preoxygenated: yes Patient position: sniffing Mask difficulty assessment: 1 - vent by mask Spontaneous ventilation during airway: absent Sedation level during airway: GA Final airway details: Final airway type: endotracheal airway Tube type: ETT ETT size: 8.0 mm Cuffed: yes Technique used for successful ETT placement: video laryngoscopy Insertion site: oral Blade type: Leticia Video blade type: Darden Blade size: 3 Cormack-Lehane (video): grade I - full view of glottis Cuff inflated with: air ETT to gums: 24 cm Placement verified by: auscultation Airway secured with: silk tape Number of attempts: 1 us Muriel Orta MD ANESTHESIA ORDERABLES F inal Result * Type and screen (02/07/2025 9:08 AM CDT) ABO Rh A Negative Angelina, indirect Negative [facility] Blood 02/07/2025 9:08 AM CDT 02/07/2025 9:23 AM CDT us Edward Mckeon MD LAB BLOOD BANK TEST ORDERABLES F inal Result [facility] [address] [place] [address] * Prepare RBC: 2 Units (02/07/2025 8:51 AM CDT) Product code [id number] [facility] Unit Number [id number] 6-V [facility] Product Blood Type ANEG [facility] Dispense Status RETURNED [facility] Product code [id number] Unit Number [id number] 1-* [facility] Product Blood Type ANEG [facility] Dispense Status RETURNED [facility] Blood 02/07/2025 8:51 AM CDT Narrative [facility] - 02/11/2025 7:51 AM CDT Specify Procedure:->TTVI/TTVR Are special requirements needed? (All products are leukoreduced and CMV- safe)- >No Date required:-[id number] [id number] Reasons:-Hold for procedure (specify procedure)} us Manny Villeda MD BLOOD BANK PRODUCT ORDER NEY Final Result [facility] [address] Department of Laboratories [place], [place] [id number] * (ABNORMAL) Blood smear review (01/31/2025 2:56 PM CDT) RBC morphology Present(A) Anisocytosis Slight(A) [facility] Elliptocytes 3-7/HPF(A) [facility] Platelet estimate Decreased(A ) [facility] Morphology scrn See Comment [facility] Comment:PLT: Platelet morpho logy normal Automated count confirmed by smear review Blood 01/31/2025 2:56 PM CDT 01/31/2025 3:45 PM CDT Linnea Morris NP LAB BLOOD ORDERABLES Final Resul t Performing Organization Address [facility] Co de Phone Number [facility] [address] Department [place] [address] * (ABNORMAL) eGFR (01/31/2025 2:56 PM CDT) Pathologist [facility] eGFR 40(L) >=60 mL/min/1. 73 m2 Comment: Interpretive Data [...] interpretive data was last reviewed 2021. Blood 01/31/2025 2:56 PM CDT 01/31/2025 3:45 PM CDT Linnea Morris NP LAB BLOOD ORDERABLES Final Resul t [facility] [address] [place] [address] * (ABNORMAL) Differential, auto (01/31/2025 2:56 PM CDT) Neutrophil abs 0.85(L) 1.50 - 6.50 K/cumm Imm gran abs 0.01 0.00 - 0.10 K/cumm [facility] Lymphocyte abs 0.37(L) 0.80 - 3.30 K/cumm [facility] Monocyte abs 0.12(L) 0.20 - 0.80 K/cumm [facility] Eosinophil abs 0.06 0.00 - 0.50 K/cumm [facility] Basophil abs 0.01 0.00 - 0.10 K/cumm [facility] Neutrophil pct 59.8 % [facility] Comment: Interpretive Data Percent cell count reference ranges are not reported, since discordance with absolute values may lead to misinterpretation of CBC data. Current Interpretive Data was last revised on 2017. Imm gran pct 0.7 % [facility] Comment: Interpretive Data Percent cell count reference ranges are not reported, since discordance with absolute values may lead to misinterpretation of CBC data. Current Interpretive Data was last revised on 2017. Lymphocyte pct 26.1 % [facility] Comment: Interpretive Data Percent cell count reference ranges are not reported, since discordance with absolute values may lead to misinterpretation of CBC data. Current Interpretive Data was last revised on 2017. Monocyte pct 8.5 % [facility] Comment: Interpretive Data Percent cell count reference ranges are not reported, since discordance with absolute values may lead to misinterpretation of CBC data. Current Interpretive Data was last revised on 2017. Eosinophil pct 4.2 % [facility] Comment: Interpretive Data Percent cell count reference ranges are not reported, since discordance with absolute values may lead to misinterpretation of CBC data. Current Interpretive Data was last revised on 2017. Basophil pct 0.7 % [facility] Comment: Interpretive Data Percent cell count reference ranges are not reported, since discordance with absolute values may lead to misinterpretation of CBC data. Current Interpretive Data was last revised on 2017. Blood 01/31/2025 2:56 PM CDT 01/31/2025 3:45 PM CDT us Linnea Morris EMS DIRECTOR LAB BLOOD ORDERABLES Final Resul t [facility] [address] [place] [address] * (ABNORMAL) Pro B-type natriuretic peptide (01/31/2025 2:56 PM CDT) NT-proBNP 3,928(H) <=450 pg/mL Comment: Interpretive Comments: A. Dyspnea [...] Interpretive Data Last Revised Date: 2018. Blood 01/31/2025 2:56 PM CDT 01/31/2025 3:45 PM CDT Linnea Morris NP LAB BLOOD ORDERABLES Final Resul t Performing Organization Address [facility] de Phone Number [facility] [address] Department of Laboratories [place], [place] [id number] * (ABNORMAL) CBC with auto differential (01/31/2025 2:56 PM CDT) WBC 1.42(L) 3.80 - 9.90 K/cumm Hgb 9.5(L) 13.0 - 17.5 g/dL [facility] Hct 31.1(L) 38.9 - 50.3 % [facility] Plt 92(L) 150 - 400 K/cumm [facility] MPV 9.9 9.1 - 12.3 fL [facility] RBC 3.48(L) 4.30 - 5.80 M/cumm [facility] MCV 89.4 81.3 - 96.4 fL [facility] MCH 27.3 27.1 - 33.3 pg [facility] MCHC 30.5(L) 32.3 - 35.7 g/dL [facility] RDW CV 18.4(H) 11.1 - 14.9 % [facility] RDW SD 59.9(H) 35.7 - 48.1 fL [facility] NRBC abs 0.00 0.00 - 0.01 K/cumm [facility] Blood 01/31/2025 2:56 PM CDT 01/31/2025 3:45 PM CDT Linnea Morris NP LAB BLOOD ORDERABLES Final Resul t Performing Organization Address [facility] Co de Phone Number [facility] [address] Department [place], [place] [phone] * (ABNORMAL) Protime-INR (01/31/2025 2:56 PM CDT) Pathologist [facility] PT 13.6(H) 9.7 - 13.0 sec INR 1.25(H) 0.90 - 1.20 [facility] Comment: Interpretive data Oral anticoagulant therapeutic ranges: Venous thromboembolism prophylaxis or treatment: 2.0-3.0 CARDIOLOGY Standard range: 2.0-3.0 High-intensity range: 2.5-3.5 Refer to indication-specific guidelines for appropriate target ranges for prosthetic heart valve replacement. Current interpretive data was last revised on 2019. Blood 01/31/2025 2:56 PM CDT 01/31/2025 3:45 PM CDT Linnea Morris NP LAB BLOOD ORDERABLES Final Resul t Performing Organization Address [facility] Co de Phone Number [facility] [address] Department [place], [place] [phone] * Type and screen (01/31/2025 2:56 PM CDT) [facility] Angelina, indirect Negative ABO Rh A Negative [facility] Blood 01/31/2025 2:56 PM CDT 01/31/2025 3:55 PM CDT Narrative [facility] - 01/31/2025 4:42 PM CDT Has the patient had Daratumumab or Isatuximab in the past 6 months?->Unknown Linnea Morris NP LAB BLOOD BANK TEST ORDERABLES F inal Result Performing Organization Address [facility] Co de Phone Number [facility] [address] Department of [place], [place] [phone] * (ABNORMAL) Comprehensive metabolic panel (01/31/2025 2:56 PM CDT) Sodium 138 135 - 145 mmol/L Potassium, pl 4.2 3.3 - 4.9 mmol/L [facility] Chloride 101 97 - 110 mmol/L [facility] CO2 23 22 - 32 mmol/L [facility] Anion gap 14 2 - 15 mmol/L [facility] BUN 38(H) 6 - 25 mg/dL [facility] Creatinine 1.74(H) 0.80 - 1.30 mg/dL [facility] Glucose 106 70 - 199 mg/dL [facility] Comment: Interpretive Data Fasting glucose [...] 2022. Calcium 8.9 8.5 - 10.3 mg/dL [facility] Bilirubin, total 0.5 0.1 - 1.2 mg/dL [facility] Protein, pl 7.3 6.5 - 8.5 g/dL [facility] Albumin 3.9 3.5 - 5.0 g/dL [facility] Alk phos 54 40 - 130 Units/L [facility] ALT 13 7 - 55 Units/L [facility] AST 18 10 - 50 Units/L [facility] Blood 01/31/2025 2:56 PM CDT 01/31/2025 3:45 PM CDT us Linnea Morris NP LAB BLOOD ORDERABLES Final Resul t [facility] [address] [place] [address] * RIGHT LEFT HEART CATHETERIZATION CORONARY GRAFT WITH WITHOUT LEFT VENTRICULOGRAPHY ANGIOGRAM (01/21/2025 2:58 PM CDT) Anatomical Region Laterality Modality X-Ray Angiograph y Narrative 01/21/2025 2:59 PM CDT Images from the original result were not included. [facility] [place] [facility], [address] [place] [address], [id number] Right and Left Heart Catheterization Procedure Report 74 y.o. year old male with severe tricuspid regurgitation referred for right and left heart catheterization. Attending Physician: Edward Mckeon MD Access:6F Right Femoral Artery and 6F Right Femoral Vein Catheter:SONDRA, FL4, FR4, and Rodney Injection:Left Main Trunk, Right Coronary Artery, SVG, Left Subclavian, and MAXWELL Closure:Angio-seal and Vascade Anticoagulation:None Air Kerma:462 mGy Fluoro time:7.4 min Contrast:70 ml Optiray Sedation:1mg Versed, 25 mcg fentanyl Estimated blood Loss: minimal Preprocedural Diagnosis: Coronary artery disease, tricuspid regurgitation Postprocedural Diagnosis: Coronary artery disease, tricuspid regurgitation Procedural details: After risks, benefits, and alternatives to the procedure were explained to the patient, they agreed to proceed. After signing informed consent the patient was brought to the cardiac catheterization laboratory. There were prepped and draped in sterile fashion. A 6 Cymraes sheath was inserted in the Right Femoral Artery using the modified Seldinger technique and ultrasound guidance. A 6 Cymraes sheath was inserted in the Right Femoral Vein using the modified Seldinger technique and ultrasound guidance. We then performed Right Heart Catheterization using the Rodney catheter, measuring Sarah cardiac outputs. We then performed selective coronary angiography and bypass graft angiography using various catheters. We then crossed the aortic valve and measured hemodynamics using a pigtail catheter. At completion of the case a Angio-seal was deployed at the femoral artery and a Vascade of the femoral vein with good hemostasis achieved. The patient tolerated the procedure well with no complaints and was transferred to the floor for further monitoring and care. Findings: Right heart catheterization Right atrium: 15 mm Hg Right ventricle: 50/15 mm Hg Pulmonary artery: 50/20 mm Hg, saturation 60.1% Pulm Cap Wedge Pressure: 20 mm Hg Sarah cardiac output/cardiac index: 5.94/2.57 LMT: Normal LAD: 100% occluded proximal, distal fills via patent MAXWELL, 70% apical beyond MAXWELL insertion; 70% stenosis D1 LCX: 50% mid, 70% distal, distal OM fills via patent radial graft RCA: 100% occluded proximal, distal fills via patent SVG SVG to RCA: Patent Radial to OM: Patent Left subclavian: Normal Maxwell to LAD: Patent LV: 120/20 mm Hg Ao: 120/70 mm Hg, saturation 96.1% A/P: Mildly elevated filling pressures with severe pulmonary hypertension and normal cardiac output. Stable coronary artery disease with patent grafts. Continue workup for transcatheter tricuspid valve replacement Edward Mckeon MD 01/21/2025 2:54 PM Edward Mckeon MD CV CARDIAC CATH PROCEDURES Final Result * ECG 12 lead (01/21/2025 1:17 PM CDT) 01/21/2025 1:17 PM CDT Narrative [facility] - 01/21/2025 1:50 PM CDT Vent Rate: 79 bpm RR Interval: 752 msec OR Interval: 0 msec QRS Duration: 107 msec QT Interval: 409 msec QTC Interval: 444 msec P-R-T Hoagland: 0 - 91 - -13 degrees IMPRESSION: ATRIAL FIBRILLATION BORDERLINE RIGHT AXIS DEVIATION [QRS AXIS > 90] LOW QRS VOLTAGE IN EXTREMITY LEADS [QRS DEFLECTION < 0.5 mV IN LIMB LEADS] Electronically Signed By: Himanshu Salcedo MD PhD us Edward Mckeon MD ECG ORDERABLES Final Result [facility] * CTA Heart, Coronary Arteries and Thoracic [...] (ABNORMAL) eGFR (01/03/2025 12:43 PM CDT) Pathologist [facility] eGFR 36(L) >=60 mL/min/1. 73 m2 Comment: [...] NP LAB BLOOD ORDERABLES Nathalie l Result [facility] [address] [place] [address] * (ABNORMAL) Differential, auto (01/03/2025 12:43 PM CDT) Pathologist [facility] Neutrophil abs 1.00(L) 1.50 - 6.50 K/cumm Imm gran abs 0.00 0.00 - 0.10 K/cumm [facility] Lymphocyte abs 0.49(L) 0.80 - 3.30 K/cumm [facility] Monocyte abs 0.20 0.20 - 0.80 K/cumm [facility] Eosinophil abs 0.08 0.00 - 0.50 K/cumm [facility] Basophil abs 0.01 0.00 - 0.10 K/cumm [facility] Neutrophil pct 56.2 % [facility] Comment: Interpretive Data Percent cell count reference ranges are not reported, since discordance with absolute values may lead to misinterpretation of CBC data. Current Interpretive Data was last revised on 2017. Imm gran pct 0.0 % [facility] Comment: Interpretive Data Percent cell count reference ranges are not reported, since discordance with absolute values may lead to misinterpretation of CBC data. Current Interpretive Data was last revised on 2017. Lymphocyte pct 27.5 % [facility] Comment: Interpretive Data Percent cell count reference ranges are not reported, since discordance with absolute values may lead to misinterpretation of CBC data. Current Interpretive Data was last revised on 2017. Monocyte pct 11.2 % [facility] Comment: Interpretive Data Percent cell count reference ranges are not reported, since discordance with absolute values may lead to misinterpretation of CBC data. Current Interpretive Data was last revised on 2017. Eosinophil pct 4.5 % [facility] Comment: Interpretive Data Percent cell count reference ranges are not reported, since discordance with absolute values may lead to misinterpretation of CBC data. Current Interpretive Data was last revised on 2017. Basophil pct 0.6 % [facility] Comment: Interpretive Data Percent cell count reference ranges are not reported, since discordance with absolute values may lead to misinterpretation of CBC data. Current Interpretive Data was last revised on 2017. Blood 01/03/2025 12:4 3 PM CDT 01/03/2025 1:08 PM CDT us Rosanne Chaves NP LAB BLOOD ORDERABLES Nathalie chu Result [facility] [address] [place] [address] * (ABNORMAL) Pro B-type natriuretic peptide (01/03/2025 [...] as advanced age. - References: 1. Gerda JL et.al. Eur Heart J. 2006:27:330-337. 2. Chris RW, Malcolm ALBRIGHT. J. AM Elle Cardiol: Cardiovasc Imag. 2009;2: 216- 225. Interpretive Data Last Revised Date: 2018. Blood 01/03/2025 12:4 3 PM CDT 01/03/2025 1:08 PM CDT us Rosanne Chaves NP LAB BLOOD ORDERABLES Nathalie l Result [facility] [address] [place] [address] * (ABNORMAL) CBC with auto differential (01/03/2025 12:43 PM CDT) Pathologist [facility] WBC 1.78(L) 3.80 - 9.90 K/cumm Hgb 9.1(L) 13.0 - 17.5 g/dL [facility] Hct 29.5(L) 38.9 - 50.3 % [facility] Plt 100(L) 150 - 400 K/cumm [facility] MPV 10.3 9.1 - 12.3 fL [facility] RBC 3.34(L) 4.30 - 5.80 M/cumm [facility] MCV 88.3 81.3 - 96.4 fL [facility] MCH 27.2 27.1 - 33.3 pg [facility] MCHC 30.8(L) 32.3 - 35.7 g/dL [facility] RDW CV 17.3(H) 11.1 - 14.9 % [facility] RDW SD 55.8(H) 35.7 - 48.1 fL [facility] NRBC abs 0.00 0.00 - 0.01 K/cumm [facility] Blood 01/03/2025 12:4 3 PM CDT 01/03/2025 1:08 PM CDT Rosanne Chaves NP LAB BLOOD ORDERABLES Nathalie l Result [facility] [address] [place] [address] * (ABNORMAL) Protime-INR (01/03/2025 12:43 PM CDT) PT 14.3(H) 9.7 - 13.0 sec INR 1.32(H) 0.90 - 1.20 [facility] Comment: Interpretive data Oral anticoagulant [...] ORDERABLES Nathalie l Result Performing Organization Address City/[facility]/ZIP Co de Phone Number [facility] [address] [facility] [place] [address] * Type and screen (01/03/2025 12:43 PM CDT) Pathologist [facility] Angelina, indirect Negative ABO Rh A Negative [facility] Blood 01/03/2025 12:4 3 PM CDT 01/03/2025 1:14 PM CDT Narrative [facility] - 01/03/2025 2:02 PM CDT Has the patient had Daratumumab or Isatuximab in the past 6 months?->Unknown Rosanne Chaves NP LAB BLOOD BANK TEST ORDER NEY Final Result Performing Organization Address [facility] Co de Phone Number [facility] [address] [facility] [place] [address] * (ABNORMAL) Comprehensive metabolic panel (01/03/2025 12:43 PM CDT) [facility] Sodium 137 135 - 145 mmol/L Potassium, pl 4.1 3.3 - 4.9 mmol/L [facility] Chloride 97 97 - 110 mmol/L [facility] CO2 29 22 - 32 mmol/L [facility] Anion gap 11 2 - 15 mmol/L [facility] BUN 43(H) 6 - 25 mg/dL [facility] Creatinine 1.90(H) 0.80 - 1.30 mg/dL [facility] Glucose 106 70 - 199 mg/dL [facility] Comment: Interpretive Data Fasting glucose [...] 2022. Calcium 8.9 8.5 - 10.3 mg/dL [facility] Bilirubin, total 0.5 0.1 - 1.2 mg/dL [facility] Protein, pl 7.3 6.5 - 8.5 g/dL [facility] Albumin 3.8 3.5 - 5.0 g/dL [facility] Alk phos 62 40 - 130 Units/L [facility] ALT 15 7 - 55 Units/L [facility] AST 24 10 - 50 Units/L [facility] Blood 01/03/2025 12:4 3 PM CDT 01/03/2025 1:08 PM CDT Rosanne Chaves NP LAB BLOOD ORDERABLES Nathalie l Result [facility] [address] [place] [address] * Cardiology Document Scan (12/27/2024 3:10 PM [...] PM CDT) Anatomical Region Laterality Modality Other Hyun Faria MD CV CARDIAC SERVICES PROCEDU RES Final Result from Last 3 Months Insurance [facility] MEDICARE MEDICARE MEDICARE [facility] Advance Directives For more information, please contact: [phone] * Full Code (Latest Code Status on File) Date Activated Date Inactivated Comments 02/07/2025 12:55 PM 02/11/2025 6:13 PM * Full Code Date Activated Date Inactivated Comments 2019 10:44 AM 04/27/2019 5:09 PM Care Teams Surgical Brace Maker Relationship Specialty Start Date End Date Leon Taylor MD [address] [place] [address] PCP - General 12/03/16 Bhavesh Valdez MD [address] [place] [address] Consulting Physician Cardiology 08/26/23 Nolan Herron MD [address] [address] [place] [id number] Referring Physician Hematology 08/26/23 Edward Mckeon MD [address] [facility] [address] [place], [place] [phone] Referring Physician Cardiology 12/26/24 Linnea Morris NP [address] [facility] [address] [place], [place] [id number] Nurse Practitioner Cardiothoracic Surgery 01/25/25 Rosanne Chaves NP [address] [facility] [address] [place] [address] Nurse Practitioner Cardiothoracic Surgery 02/11/25
--- OUTSIDE RECORDS SUMMARY | 2025-03-22 10:57 | XMS_ITS | Clinical Summary ---
Author Organization [facility] [address] Address [address] [place] [address] Care Team Providers Care Grab Operator Name Role Phone Leon Taylor MD Primary Care Prov ider Bhavesh Valdez MD Unavailable [phone] Nolan Herron MD Unavailable [phone] Edward Mckeon MD Unavailable Linnea Morris NP Unavailable Rosanne Chaves NP Unavailable Allergies No known active allergies Medications tamsulosin [...] (05/25/2019): Added automatically from request for surgery [id number] Assessment & Plan (08/25/2023 5:27 PM LOCKER PLANT ATTENDANT): The patient is status post catheter ablation [...] with atrial fibrillation: a report of the [place] [employer]/[place] [employer] Association Task Force on Practice Guidelines [...] (coronary artery bypass graft) 04/05/20 17 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 Based on this, systemic anticoagulation [...] of Atrial Fibrillation: A Report of the [place] [employer]/ [place] [employer] Association Joint Committee on Clinical Practice Guidelines. Circulation 2022;148: e42 Class IIA: In patients with AF, a moderate to high risk of stroke (IDE2WX1-YSLm score >=2), and a contraindication to long-term oral anticoagulation due to a nonreversible cause, percutaneous LAAO (pLAAO) is reasonable Hypertension 10/15/2014 Chronic coronary artery disease 09/30/2014 Resolved Problems Problem Noted Date Diagnosed Date Resolved Date A-fib 02/07/2024 03/21/2024 Paroxysmal atrial fibrillation (CMS/HCC) 03/30/2019 06/29/2022 Overview (03/30/2019): Added automatically from request for surgery [id number] Atrial fibrillation (CMS/HCC) [I48.91] 02/16/2017 06/29/2022 Encounters Date Type Department Care Team Description 03/18/2025 1:00 PM CDT Office Visit [facility] Card[facility] [address] [place] [phone] Lissette Senior NP Nonrheumatic tricuspid valve regurgitation (Primary Dx); History of tricuspid valve replacement; Chronic heart failure with preserved ejection fraction (HCC); Chronic right heart failure (HCC); Persistent atrial fibrillation (HCC); Coronary artery disease involving peoria coronary artery of pe[place] heart without angina pectoris; Essential hypertension 03/18/2025 11:00 AM CDT - 03/18/2025 11:59 PM CDT Hospital Encounter [facility] Res[facility] [address] [place] [address] Nonrheumatic tricuspid valve regurgitation Discharge Disposition: Discharge to home or self care 03/18/2025 9:57 AM CDT - 03/18/2025 11:59 PM CDT Hospital Encounter [facility] OP Cardiac Testing [address] [place] [address] Nonrheumatic tricuspid valve regurgitation Discharge Disposition: Discharge to home or self care 02/27/2025 Telephone [facility] [place] [address] [place] [phone] Deirdre Wu EP-C ACL Reconstruction Follow-up 02/25/2025 9:00 AM CDT Office Visit [facility] Card[facility] [address] [place] [address] Yamel Mabry NP History of tricuspid valve replacement (Primary Dx); Persistent atrial fibrillation (HCC) 02/07/2025 11:03 AM CDT Anesthesia Event [facility] Operating Room [address] [place] [phone] Muriel Orta MD 02/07/2025 10:15 AM CDT - 02/07/2025 12:45 PM CDT Surgery [facility] Operating Room [address] [place] [phone] Edward Mckeon MD Transcatheter Tricuspid Valve Implant (TTVI/TTVR) 02/07/2025 8:28 AM CDT - 02/11/2025 1:45 PM CDT Hospital Encounter [address] [address] Edward Mckeon MD Baker, Joshua Norbert, MD Severe tricuspid regurgitation (Primary Dx); Nonrheumatic tricuspid valve regurgitation; H/O tricuspid valve replacement Discharge Disposition: Discharge to home or self care 02/04/2025 Telephone Cardiovascular and Thoracic Surgery [address] [place] [address] Manny Villeda MD Weight check 01/31/2025 2:05 PM CDT Lab [facility] Outpatient Lab [address] [place] [phone] Nonrheumatic tricuspid valve regurgitation; Pre-operative cardiovascular examination, symptomatic CHF (HCC) 01/31/2025 1:00 PM CDT Office Visit Cardiovascular and Thoracic Surgery [address] [place] [address] [address] [place] [address] Linnea Morris NP Thrombocytopenia (Primary Dx); Nonrheumatic tricuspid valve regurgitation; Pre-operative cardiovascular examination, symptomatic CHF (HCC) 01/25/2025 Documentation Cardiovascular and Thoracic Surgery [address] [place] [address] [address] [place] [address] Aziza Kumari 01/21/2025 2:00 PM CDT - 01/21/2025 3:15 PM CDT Surgery [facility] Heart [address] [address] Edward Mckeon MD RIGHT LEFT HEART CATHETERIZATION WITH CORONARY ANGIOGRAPHY GRAFT AND WITH OR WITHOUT LEFT VENTRICULOGRAPHY [id number] 01/21/2025 12:55 PM CDT - 01/21/2025 6:04 PM CDT Hospital Encounter [facility] Heart Center [address] [place] [phone] Edward Mckeon MD Nonrheumatic tricuspid valve regurgitation Discharge Disposition: Discharge to home or self care 01/15/2025 Telephone [facility] Cardiology [address] [place] [phone] Bhavesh Valdez MD 01/07/2025 Telephone [facility] Cardiology [address] [place] [address] [address] [place] [address] Edward Mckeon MD 01/07/2025 Orders Only Cardiovascular and Thoracic Surgery [address] [place] [address] [address] [place] [address] Linnea Morris NP 01/07/2025 Telephone Cardiovascular and Thoracic Surgery [address] [place] [address] [address] [place] [address] Manny Villeda MD OTHER 01/03/2025 12:56 PM CDT - 01/03/2025 11:59 PM CDT Hospital Encounter [facility] - Imaging [address] [place] [address] Pre-op evaluation; Severe tricuspid valve regurgitation; Nonrheumatic aortic (valve) insufficiency Discharge Disposition: Discharge to home or self care 01/03/2025 11:55 AM CDT Lab [facility] Outpatient Lab [address] [place] [address] Pre-op evaluation; Severe tricuspid regurgitation 01/03/2025 11:00 AM CDT Office Visit Cardiovascular and Thoracic Surgery [address] [address] Rosanne Chaves NP Urinary tract infection without hematuria, site unspecified (Primary Dx); Pre-op evaluation; Severe tricuspid regurgitation; Severe tricuspid valve regurgitation; Other thrombophilia (HCC); Nonrheumatic aortic (valve) insufficiency 12/31/2024 Orders Only [facility] Cardiology [address] [place] [phone] Marly Benedict MD 12/28/2024 Telephone [facility] Cardiology [address] [place] [phone] Bhavesh Valdez MD 12/26/2024 Orders Only [facility] Cardiology [address] [place] [phone] Hyun Faria MD 12/26/2024 Documentation Cardiovascular and Thoracic Surgery [address] [place] [address] [address] [address] Aziza Kumari 12/26/2024 Documentation Cardiovascular and Thoracic Surgery [address] [place] [address] [address] [address] Aziza Kumari from Last 3 Months Immunizations Immunization Administration Dates Next Due Influenza, Trivalent, High D ose, Split, Preservative Free, Intramuscular 07/26/2019 Surgical History Surgery Date Site/Laterality Comments CORONARY ARTERY BYPASS GRAFT REPLACEMENT TOTAL KNEE BILATERAL HERNIA REPAIR CARDIAC CATHETERIZATION CARDIAC CATHETERIZATION 01/21/2025 N/A Procedure: RIGHT LEFT HEART CATHETERIZATION WITH CORONARY ANGIOGRAPHY GRAFT AND WITH OR WITHOUT LEFT VENTRICULOGRAPHY [id number]; Surgeon: Edward Mckeon MD; Location: [facility] CARDIAC UPPER LEATHER CUTTER; Service: Cardiovascular; Laterality: N/A; Medical devices from this surgery are in the Medical Devices section. CARDIAC CATHETERIZATION 02/07/2025 N/A Procedure: Transcatheter Tricuspid Valve Implant (TTVI/TTVR); Surgeon: Edward Mckeon MD; Location: [facility] OPERATING ROOM; Service: Cardiovascular; Laterality: N/A; DAP 124.15 Gycm2, RP total 382.03 mGy, time 10.9 min Medical devices from this surgery are in the Medical Devices section. CARDIAC CATHETERIZATION 02/07/2025 N/A Procedure: Transcatheter Tricuspid Valve Implant (TTVI/TTVR); Surgeon: Manny Villeda MD; Location: [facility] OPERATING ROOM; Service: Cardiothoracic; Laterality: N/A; DAP 124.15 Gycm2, RP total 382.03 mGy, time 10.9 min Medical devices from this surgery are in the Medical Devices section. Medical History Medical History Date Comments Atrial [...] drink = 0.6 oz pur e alcohol) [facility] Utilities Answer Date Recorded In the past 12 months has [employer], gas, oil, or water [employer] threatened to shut off services in your [...] often do you attend chur ch or baptism services? Never 02/08/2025 Do you belong to any clubs o r organizations such as congregational groups, unions, fraternal or athletic groups, or [...] No 02/08/2025 Housing Stability Vital Sign Answer Vian e Recorded In the last 12 months, was t here a time when you were not able to pay the mortgage or rent on time? No 02/08/2025 In the past 12 months, how m any times have you moved where you were living? 0 02/08/2025 At any time in the past 12 m [facility], were you homeless or living in a long-term (including now)? No 02/08/2025 Personal Safety Answer Date Recorded Have you ever been in or are you currently in a harmful physical or emotional relationship or is someone making you feel afraid or unsafe? 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 Gender Identity Not on file Sexual Orientation [...] 03/18/2025 12:35 PM CDT Plan of Treatment Health Maintenance Due Date Last Done Comments Colon Cancer Screening-Colonoscopy 1950 Depression Screening 1950 Hepatitis C Screening 1950 DTaP/Tdap/Td Vaccine (1 - Tdap) 1960 Hepatitis B Screening 1967 Well Visit 65+ 2014 Zoster Vaccine (2 of 3) 10/11/2015 08/16/2015 Pneumococcal vaccine 65+ (2 of 2 - PPSV23) 08/05/2018 06/10/2018 Influenza Vaccine (#1) 2025 9, 06/10/2018, 08/27/2016, Additional history exists Fall Risk Assessment 02/11/2026 02/11/2025 Medical Devices Implanted Type Area Plumbing Drafter Device Identifier Shelf Expiration Date Model / Serial / Lot [employer] Brad Device Closure 27mm Lt Watchman Flx Pro Cardiac Strl La [id number] - [id number] - [id number] Implanted:Qty: 1 on 02/07/2024 by Caleb Bonilla MD at [facility] Left Atrial Appendage Occluder [employer] Brad 12/07/2026 [id number] / [id number] / [id number] Pate [employer] Component Bundle 56mm Transcath Trcsd Strl Heart Vlv Evoque [id number] - [id number] - [id number] Implanted:Qty: 1 on 02/07/2025 by Edward Mckeon MD at [facility] Prosthetic Valve N/A: Tricuspid Valve [employer] 04/29/2026 [id number] / [id number] / [employer] Brad Angio-Seal Vip 6fr Closere Device [id number] - S0 - [id number] Implanted:Qty: 1 on 01/21/2025 by Edward Mckeon MD at [facility] Vascular Closure Device [employer] Brad 05/23/2025 [id number] / [id number] / [id number] [employer] Device Vascular Closure Femoral Artery Bioabsorbable Dual Method Vascade 6-7fr Collagen [id number] - S0 - [id number] Implanted:Qty: 1 on 01/21/2025 by Edward Mckeon MD at [facility] Vascular Closure Device [employer] 11/27/2026 [id number] / 0 / [id number] [employer] Vascade Mvp 6-12fr Venous Closure [id number] - [id number] - [id number] Implanted:Qty: 1 on 02/07/2024 by Caleb Bonilla MD at [facility] [employer] 11/23/2025 [id number] / [id number] / [id number] Neves V[employer] System Closure Repair Femoral Artery Suture Mediated Perclose Prostyle 35398-53 - [id number] Implanted:Qty: 1 on 02/07/2025 by Edward Mckeon MD at [facility] Right: Groin [employer] 09/04/2026 [id number] / / [id number] Neves Vascular System Closure Repair Femoral Artery Suture Mediated Perclose Prostyle 68271-62 - [id number] Implanted:Qty: 1 on 02/07/2025 by Edward Mckeon MD at [facility] Right: Groin [employer] 10/05/2026 [id number] / / [id number] Procedures Procedure Name Priority Date/Time Associated Diagnosis [...] regurgitation HARISH GUIDANCE DURING CARDIAC STRUCTURAL INTVN [id number] Routine 02/07/2025 12:42 PM CDT POCT ACTIVATED CLOTTING TIME, HIGH RANGE Routine 02/07/2025 11:55 AM CDT [place] AN PROCEDURE PLACEHOLDER Routine 02/07/2025 11:28 AM CDT [place] AN ELECTIVE ENDOTRACHEAL AIRWAY Routine 02/07/2025 11:28 [...] from the original result was not included. [facility] CHEST AND SLEEP SPECIALISTS BOARD CERTIFIED IN PULMONARY, CRITICAL CARE, AND SLEEP MEDICINE Merissa Jarrell MD [address] [place] [address] MD Chaz Ching MD Office [phone] Dorian Christie MD PULMONARY FUNCTION TESTING 6 [...] Certified in Pulmonary and Critical Care Medicine [phone] Please note that our PFT lab has [...] AM CDT Narrative 03/18/2025 7:02 PM CDT [facility] Outpatient Cardiac Testing Center [address] [place] [id number] ECHOCARDIOGRAM Patient Name: KAMRON CHAUDHARY : 1950 (74y 10m) Gender: M Study Date: 03/18/2025 09:59:02 AM Ht(Inch): 70 Wt(Lb): 244.05 BSA: 2.34 Electrical Tryout Person: BC Order Provider: EDWARD MCKEON BMI: 35.01 BP: [...] Procedure Note Edward Mckeon MD - 03/18/2025 [facility] Out[facility]iac Testing [facility] [address] [place] [id number] ECHOCARDIOGRAM Patient Name: KAMRON CHAUDHARY : 1950 (74y 10m) Gender: M Study Date: 03/18/2025 09:59:02 AM Ht(Inch): 70 Wt(Lb): 244.05 BSA: 2.34 Electrical Tryout Person: MAISHA Order Provider: EDWARD MCKEON BMI: 35.01 [...] Edward Mckeon MD 03/18/2025 7:01:38 PM CDT Edward Mckeon MD CV ECHO [...] by: Burke De Leon M.D. Ilsa Chu MACHINE STAMPER IMG XR PROCEDURES Final Result * (ABNORMAL) [...] 2 AM CDT 02/11/2025 12:36 AM CDT [facility] MACHINE STAMPER LAB BLOOD ORDERABLES Fin al Result Performing Organization Address [facility] Co de Phone Number [facility] [address] [facility] [place] [address] * (ABNORMAL) Calcium, ionized (02/11/2025 12:22 AM CDT) [facility] Calcium, Ionized 4.48(L) 4.50 - 5.10 mg/dL Blood 02/11/2025 12:2 2 AM CDT 02/11/2025 12:28 AM CDT [facility] LAB BLOOD ORDERABLES Fin al Result Performing Organization Address [facility] de Phone Number [facility] [address] [facility] [place] [address] * (ABNORMAL) CBC without differential (02/11/2025 12:22 AM CDT) [facility] WBC 1.57(L) 3.80 - 9.90 K/cumm Hgb 8.8(L) 13.0 - 17.5 g/dL [facility] Hct 28.3(L) 38.9 - 50.3 % [facility] Plt 69(L) 150 - 400 K/cumm [facility] MPV 10.5 9.1 - 12.3 fL [facility] RBC 3.18(L) 4.30 - 5.80 M/cumm [facility] MCV 89.0 81.3 - 96.4 fL [facility] MCH 27.7 27.1 - 33.3 pg [facility] MCHC 31.1(L) 32.3 - 35.7 g/dL [facility] RDW CV 17.3(H) 11.1 - 14.9 % [facility] RDW SD 56.7(H) 35.7 - 48.1 fL [facility] NRBC abs 0.00 0.00 - 0.01 K/cumm [facility] Blood 02/11/2025 12:2 2 AM CDT 02/11/2025 12:36 AM CDT Ilsa Pinaor MACHINE STAMPER LAB BLOOD ORDERABLES Fin al Result Performing Organization Address [facility] de Phone Number [facility] [address] [facility] [address] [place], [place] [phone] * Type and screen (02/11/2025 12:22 AM CDT) Pathologist [facility] ABO Rh A Negative Angelina, indirect Negative [facility] Blood 02/11/2025 12:2 2 AM CDT 02/11/2025 12:33 AM CDT Narrative [facility] - 02/11/2025 1:15 AM CDT Has the patient had Daratumumab or Isatuximab in the past 6 months?->Unknown Ilsa Chu LAB BLOOD BANK TEST ORDE RABLES Final Result Performing Organization Address [facility] de Phone Number [facility] [address] Department [place], [place] [phone] * Magnesium (02/11/2025 12:22 AM CDT) Pathologist [facility] Magnesium 2.2 1.4 - 2.5 mg/dL Blood 02/11/2025 12:2 2 AM CDT 02/11/2025 12:36 AM CDT Ilsa Pinaor MACHINE STAMPER LAB BLOOD ORDERABLES Fin al Result Performing Organization Address [facility] Co de Phone Number [facility] [address] [place] [address] * (ABNORMAL) Renal function panel (02/11/2025 12:22 AM CDT) Sodium 137 135 - 145 mmol/L Potassium, pl 4.3 3.3 - 4.9 mmol/L [facility] Chloride 102 97 - 110 mmol/L [facility] CO2 19(L) 22 - 32 mmol/L [facility] Anion gap 16(H) 2 - 15 mmol/L [facility] BUN 37(H) 6 - 25 mg/dL [facility] Creatinine 1.43(H) 0.80 - 1.30 mg/dL [facility] Glucose 91 70 - 199 mg/dL [facility] Comment: Interpretive Data Fasting glucose >/= 126 [...] 2022. Calcium 8.7 8.5 - 10.3 mg/dL [facility] Phosphorus, pl 4.0 2.3 - 4.5 mg/dL [facility] Albumin 3.6 3.5 - 5.0 g/dL [facility] Blood 02/11/2025 12:2 2 AM CDT 02/11/2025 12:36 AM CDT Ilsa Chu NP LAB BLOOD ORDERABLES [facility] al Result [facility] [address] Department [place] [address] * XR Chest 1 View - Portable [...] by: Rei Guzman MD, PHD Ilsa Chu MACHINE STAMPER IMG XR PROCEDURES Final Result * (ABNORMAL) [...] CDT 02/10/2025 3:16 AM CDT Ilsa Yarbrough Tonsor MACHINE STAMPER LAB BLOOD ORDERABLES Fin al Result Performing Organization Address City/[facility]/ZIP Co de Phone Number [facility] [address] [facility] [place] [address] * Calcium, ionized (02/10/2025 3:02 AM CDT) [facility] Calcium, Ionized 4.84 4.50 - 5.10 mg/dL Blood 02/10/2025 3:02 AM CDT 02/10/2025 3:08 AM CDT Ilsa Yarbrough Tonsor MACHINE STAMPER LAB BLOOD ORDERABLES Fin al Result Performing Organization Address [facility] de Phone Number [facility] [address] [facility] [place] [address] * (ABNORMAL) CBC without differential (02/10/2025 3:02 AM CDT) [facility] WBC 1.53(L) 3.80 - 9.90 K/cumm Hgb 8.6(L) 13.0 - 17.5 g/dL [facility] Hct 27.4(L) 38.9 - 50.3 % [facility] Plt 65(L) 150 - 400 K/cumm [facility] MPV 10.3 9.1 - 12.3 fL [facility] RBC 3.11(L) 4.30 - 5.80 M/cumm [facility] MCV 88.1 81.3 - 96.4 fL [facility] MCH 27.7 27.1 - 33.3 pg [facility] MCHC 31.4(L) 32.3 - 35.7 g/dL [facility] RDW CV 17.5(H) 11.1 - 14.9 % [facility] RDW SD 56.9(H) 35.7 - 48.1 fL [facility] NRBC abs 0.00 0.00 - 0.01 K/cumm [facility] Blood 02/10/2025 3:02 AM CDT 02/10/2025 3:16 AM CDT [facility] LAB BLOOD ORDERABLES Fin al Result Performing Organization Address [facility] Co de Phone Number [facility] [address] [facility] [place] [address] * Magnesium (02/10/2025 3:02 AM CDT) [facility] Magnesium 2.0 1.4 - 2.5 mg/dL Blood 02/10/2025 3:02 AM CDT 02/10/2025 3:16 AM CDT Ilsa Yarbrough [facility] MACHINE STAMPER LAB BLOOD ORDERABLES Fin al Result Performing Organization Address [facility] de Phone Number [facility] [address] [facility] [place] [address] * (ABNORMAL) Renal function panel (02/10/2025 3:02 AM CDT) [facility] Sodium 135 135 - 145 mmol/L Potassium, pl 4.3 3.3 - 4.9 mmol/L [facility] Chloride 102 97 - 110 mmol/L [facility] CO2 20(L) 22 - 32 mmol/L [facility] Anion gap 13 2 - 15 mmol/L [facility] BUN 38(H) 6 - 25 mg/dL [facility] Creatinine 1.42(H) 0.80 - 1.30 mg/dL [facility] Glucose 90 70 - 199 mg/dL [facility] Comment: Interpretive Data Fasting glucose >/= 126 [...] 2022. Calcium 8.6 8.5 - 10.3 mg/dL [facility] Phosphorus, pl 3.3 2.3 - 4.5 mg/dL [facility] Albumin 3.4(L) 3.5 - 5.0 g/dL [facility] Blood 02/10/2025 3:02 AM CDT 02/10/2025 3:16 AM CDT Ilsa Chu NP LAB BLOOD ORDERABLES Fin al Result [facility] [address] Department [place] [address] * XR Chest 1 View - Portable [...] NP LAB BLOOD ORDERABLES Fin al Result [facility] [address] Department [place] [address] * Calcium, ionized (02/09/2025 12:46 AM CDT) Calcium, Ionized 4.90 4.50 - 5.10 mg/dL Blood 02/09/2025 12:4 6 AM CDT 02/09/2025 1:08 AM CDT Ilsa Linnea Tonsor MACHINE STAMPER LAB BLOOD ORDERABLES Fin al Result Performing Organization Address City/[facility]/ZIP Co de Phone Number [facility] [address] Department [place] [address] * (ABNORMAL) CBC without differential (02/09/2025 12:46 AM CDT) WBC 1.83(L) 3.80 - 9.90 K/cumm Hgb 8.8(L) 13.0 - 17.5 g/dL [facility] Hct 29.0(L) 38.9 - 50.3 % [facility] Plt 66(L) 150 - 400 K/cumm [facility] MPV 9.8 9.1 - 12.3 fL [facility] RBC 3.20(L) 4.30 - 5.80 M/cumm [facility] MCV 90.6 81.3 - 96.4 fL [facility] MCH 27.5 27.1 - 33.3 pg [facility] MCHC 30.3(L) 32.3 - 35.7 g/dL [facility] RDW CV 17.7(H) 11.1 - 14.9 % [facility] RDW SD 59.0(H) 35.7 - 48.1 fL [facility] NRBC abs 0.00 0.00 - 0.01 K/cumm [facility] Blood 02/09/2025 12:4 6 AM CDT 02/09/2025 1:18 AM CDT Ilsa Pinaor MACHINE STAMPER LAB BLOOD ORDERABLES Fin al Result [facility] [address] Department of [place] [place] [address] * Magnesium (02/09/2025 12:46 AM CDT) Pathologist [facility] Magnesium 2.2 1.4 - 2.5 mg/dL Blood 02/09/2025 12:4 6 AM CDT 02/09/2025 1:18 AM CDT Ilsa Pinaor MACHINE STAMPER LAB BLOOD ORDERABLES Fin al Result Performing Organization Address City/[facility]/ZIP Co de Phone Number [facility] [address] [employer] [place] [address] * (ABNORMAL) Renal function panel (02/09/2025 12:46 AM CDT) Sodium 139 135 - 145 mmol/L Potassium, pl 4.6 3.3 - 4.9 mmol/L [facility] Chloride 105 97 - 110 mmol/L [facility] CO2 20(L) 22 - 32 mmol/L [facility] Anion gap 14 2 - 15 mmol/L [facility] BUN 41(H) 6 - 25 mg/dL [facility] Creatinine 1.67(H) 0.80 - 1.30 mg/dL [facility] Glucose 90 70 - 199 mg/dL [facility] Comment: Interpretive Data Fasting glucose >/= 126 [...] 2022. Calcium 9.0 8.5 - 10.3 mg/dL [facility] Phosphorus, pl 3.5 2.3 - 4.5 mg/dL [facility] Albumin 3.4(L) 3.5 - 5.0 g/dL [facility] Blood 02/09/2025 12:4 6 AM CDT 02/09/2025 1:18 AM CDT Ilsa Chu MACHINE STAMPER LAB BLOOD ORDERABLES Fin al Result [facility] [address] [place] [address] * TRANSTHORACIC ECHO (TTE) LIMITED/FOLLOW UP W LTD DOPPLER/CF WO CONTRAST (02/08/2025 10:21 AM CDT) Anatomical Region Laterality Modality Ultrasound 02/08/2025 7:50 AM CDT Narrative 02/08/2025 10:28 AM CDT [facility] [address] [place] [address] LIMITED ECHOCARDIOGRAM Patient Name: KAMRON CHAUDHARY : 1950 (74y 9m) Gender: M Study Date: 02/08/2025 07:50:46 AM Ht(Inch): 70 Wt(Lb): 253.99 BSA: 2.39 Electrical Tryout Person: Location: [id number] Order Provider: ILSA CHU BMI: 36.44 BP: [...] Procedure Note Edward Mckeon MD - 02/08/2025 [facility] [address] [place] [address] LIMITED ECHOCARDIOGRAM Patient Name: KAMRON CHAUDHARY : 1950 (74y 9m) Gender: M Study Date: 02/08/2025 07:50:46 AM Ht(Inch): 70 Wt(Lb): 253.99 BSA: 2.39 Electrical Tryout Person: Location: [address] Order Provider: ILSA CHU BMI: 36.44 BP: [...] by: Ilsa Chu NP CRITICAL CARE: Team: [facility] CT Shift: AM Level of Billing: Subsequent [...] plan with the patient's team and other medical/clinical education consultant staff. This time was in addition to and separate from care provided by other practitioners on this day of service. us Ilsa Chu MACHINE STAMPER IN CLINIC/BEDSIDE ORDERA BLES Final Result * [...] 02/08/2025 3:21 AM CDT us Ilsa Chu MACHINE STAMPER LAB BLOOD ORDERABLES Fin al Result [facility] [address] Department [place] [address] * (ABNORMAL) CBC without differential (02/08/2025 3:11 AM CDT) WBC 1.91(L) 3.80 - 9.90 K/cumm Hgb 9.0(L) 13.0 - 17.5 g/dL [facility] Hct 29.0(L) 38.9 - 50.3 % [facility] Plt 70(L) 150 - 400 K/cumm [facility] MPV 9.8 9.1 - 12.3 fL [facility] RBC 3.25(L) 4.30 - 5.80 M/cumm [facility] MCV 89.2 81.3 - 96.4 fL [facility] MCH 27.7 27.1 - 33.3 pg [facility] MCHC 31.0(L) 32.3 - 35.7 g/dL [facility] RDW CV 18.1(H) 11.1 - 14.9 % [facility] RDW SD 59.6(H) 35.7 - 48.1 fL [facility] NRBC abs 0.00 0.00 - 0.01 K/cumm [facility] Blood 02/08/2025 3:11 AM CDT 02/08/2025 3:20 AM CDT Ilsa Pinaor MACHINE STAMPER LAB BLOOD ORDERABLES Fin al Result Performing Organization Address City/[facility]/ZIP Co de Phone Number [facility] [address] [facility] [place] [address] * Phosphorus (02/08/2025 3:11 AM CDT) Pathologist [facility] Phosphorus, pl 3.7 2.3 - 4.5 mg/dL Blood 02/08/2025 3:11 AM CDT 02/08/2025 3:21 AM CDT Ilsa Pinaor MACHINE STAMPER LAB BLOOD ORDERABLES Fin al Result Performing Organization Address City/[facility]/ZIP Co de Phone Number [facility] [address] [facility] [place] [address] * Magnesium (02/08/2025 3:11 AM CDT) [facility] Magnesium 2.3 1.4 - 2.5 mg/dL Blood 02/08/2025 3:11 AM CDT 02/08/2025 3:21 AM CDT [facility]lsa [facility]rough [facility] LAB BLOOD ORDERABLES Fin al Result Performing Organization Address [facility] Co de Phone Number [facility] [address] [place] [address] * Bilirubin, direct (02/08/2025 3:11 AM CDT) [facility] Bilirubin, direct 0.2 0.1 - 0.3 mg/dL Blood 02/08/2025 3:11 AM CDT 02/08/2025 3:21 AM CDT Ilsa Linnea [facility]AM[facility] LAB BLOOD ORDERABLES Fin al Result Performing Organization Address [facility] de Phone Number [facility] [address] [place] [address] * (ABNORMAL) Comprehensive metabolic panel (02/08/2025 3:11 AM CDT) [facility] Sodium 140 135 - 145 mmol/L Potassium, pl 4.4 3.3 - 4.9 mmol/L [facility] Chloride 107 97 - 110 mmol/L [facility] CO2 20(L) 22 - 32 mmol/L [facility] Anion gap 13 2 - 15 mmol/L [facility] BUN 43(H) 6 - 25 mg/dL [facility] Creatinine 1.55(H) 0.80 - 1.30 mg/dL [facility] Glucose 93 70 - 199 mg/dL [facility] Comment: Interpretive Data Fasting glucose >/= 126 [...] 2022. Calcium 8.5 8.5 - 10.3 mg/dL [facility] Bilirubin, total 0.6 0.1 - 1.2 mg/dL [facility] Protein, pl 6.4(L) 6.5 - 8.5 g/dL [facility] Albumin 3.6 3.5 - 5.0 g/dL [facility] Alk phos 51 40 - 130 Units/L [facility] ALT 9 7 - 55 Units/L [facility] AST 22 10 - 50 Units/L [facility] Blood 02/08/2025 3:11 AM CDT 02/08/2025 3:21 AM CDT Ilsa Chu NP LAB BLOOD ORDERABLES Fin al Result Performing Organization Address City/[facility]/ZIP Co de Phone Number [facility] [address] Department [place] [address] * POCT glucose (02/08/2025 2:59 AM CDT) [facility] Glucose, POC 91 70 - 199 mg/dL Comment: For Glucose values <35 mg/dl when Hematocrit is >60 mg/dl,the test may not accurately detect significant hypoglycemia,and testing in the Laboratory should be considered if clinically indicated. POC Performer [id number] [facility] Blood 02/08/2025 2:59 AM CDT 02/08/2025 2:59 AM CDT us Edward cMkeon MD LAB POCT ORDERABLES - DEVICE Fin al Result [facility] [address] Department [place] [address] * (ABNORMAL) Calcium, ionized (02/08/2025 2:56 AM CDT) Calcium, Ionized 4.37(L) 4.50 - 5.10 mg/dL Blood 02/08/2025 2:56 AM CDT 02/08/2025 3:05 AM CDT Ilsa Chu NP LAB BLOOD ORDERABLES Fin al Result [facility] [address] Department [place] [address] * Critical Care (02/07/2025 10:17 PM CDT) Narrative Aby Julian NP - 02/07/2025 10:17 PM CDT Aby Julian NP 02/08/2025 5:23 AM Critical Care Performed by: Aby Julian NP Authorized by: Aby Julian NP CRITICAL CARE: Team: [facility] CT Shift: PM Level of Billing: Subsequent [...] plan with the patient's team and other medical/clinical education consultant staff. This time was in addition to and separate from care provided by other practitioners on this day of service. I spent time reviewing and interpreting data from bedside monitors, laboratory results, and imaging, I spent time discussing the management of this critically ill patient with consultants and the medical staff and I spent time documenting in the medical record Aby Julian MACHINE STAMPER IN CLINIC/BEDSIDE ORDERAB LES Final Result * [...] by: Navid Becerra MD, PHD Ilsa Chu MACHINE STAMPER IMG XR PROCEDURES Final Result * Critical Care (02/07/2025 2:05 PM CDT) Narrative Dorian Cope MD - 02/07/2025 2:05 PM CDT Dorian Cope MD 02/07/2025 4:01 PM Critical Care Performed by: Ilsa Chu NP Authorized by: Ilsa Chu NP CRITICAL CARE: Team: [facility] CT Shift: AM Level of Billing: Initial [...] plan with the patient's team and other medical/clinical education consultant staff. This time was in addition to and separate from care provided by other practitioners on this day of service. us Ilsa Chu NP IN CLINIC/BEDSIDE ORDERA BLES Final Result * POCT glucose (02/07/2025 1:11 PM CDT) [facility] Glucose, POC 126 70 - 199 mg/dL Comment: For Glucose values <35 mg/dl when Hematocrit is >60 mg/dl,the test may not accurately detect significant hypoglycemia,and testing in the Laboratory should be considered if clinically indicated. POC Performer [id number] [facility] Blood 02/07/2025 1:11 PM CDT 02/07/2025 1:11 PM CDT Edward Mckeon MD LAB POCT ORDERABLES - DEVICE Fin al Result Performing Organization Address [facility]/ZIP Co de Phone Number [facility] [address] [place] [address] * (ABNORMAL) eGFR (02/07/2025 1:05 [...] ORDERABLES Fin al Result Performing Organization Address [facility]/ZIP Co de Phone Number [facility] [address] Department [employer] [place], [place] [id number] * Calcium, ionized (02/07/2025 1:05 PM CDT) Calcium, Ionized 4.61 4.50 - 5.10 mg/dL Blood 02/07/2025 1:05 PM CDT 02/07/2025 1:14 PM CDT Ilsa Chu MACHINE STAMPER LAB BLOOD ORDERABLES Fin al Result Performing Organization Address [facility] de Phone Number [facility] [address] [place] [address] * (ABNORMAL) aPTT (02/07/2025 1:05 PM CDT) aPTT 40(H) 28 - 38 sec Comment: Interpretive Data Heparin therapeutic range: 66.0 - 100.0 seconds. Range based on correlation with therapeutic heparin activity range of 0.3 - 0.7 Units/mL. Current interpretive data was last revised on 2023. Blood 02/07/2025 1:05 PM CDT 02/07/2025 1:16 PM CDT Ilsa Chu LAB BLOOD ORDERABLES Fin al Result Performing Organization Address [facility] de Phone Number [facility] [address] [place] [address] * (ABNORMAL) Protime-INR (02/07/2025 1:05 PM CDT) PT 15.5(H) 9.7 - 13.0 sec INR 1.42(H) 0.90 - 1.20 [facility] Comment: Interpretive data Oral anticoagulant therapeutic ranges: Venous thromboembolism prophylaxis or treatment: 2.0-3.0 CARDIOLOGY Standard range: 2.0-3.0 High-intensity range: 2.5-3.5 Refer to indication-specific guidelines for appropriate target ranges for prosthetic heart valve replacement. Current interpretive data was last revised on 2019. Blood 02/07/2025 1:05 PM CDT 02/07/2025 1:16 PM CDT Ilsa Pinaor MACHINE STAMPER LAB BLOOD ORDERABLES Fin al Result Performing Organization Address [facility] Co de Phone Number [facility] [address] [employer] [place] [address] * (ABNORMAL) CBC without differential (02/07/2025 1:05 PM CDT) Pathologist [facility] WBC 1.59(L) 3.80 - 9.90 K/cumm Hgb 9.4(L) 13.0 - 17.5 g/dL [facility] Hct 29.8(L) 38.9 - 50.3 % [facility] Plt 67(L) 150 - 400 K/cumm [facility] MPV 9.9 9.1 - 12.3 fL [facility] RBC 3.38(L) 4.30 - 5.80 M/cumm [facility] MCV 88.2 81.3 - 96.4 fL [facility] MCH 27.8 27.1 - 33.3 pg [facility] MCHC 31.5(L) 32.3 - 35.7 g/dL [facility] RDW CV 18.5(H) 11.1 - 14.9 % [facility] RDW SD 59.4(H) 35.7 - 48.1 fL [facility] NRBC abs 0.00 0.00 - 0.01 K/cumm [facility] Blood 02/07/2025 1:05 PM CDT 02/07/2025 1:16 PM CDT Ilsa Chu MACHINE STAMPER LAB BLOOD ORDERABLES Fin al Result Performing Organization Address [facility]/ZIP Co de Phone Number [facility] [address] [place] [address] * Phosphorus (02/07/2025 1:05 PM CDT) Pathologist [facility] Phosphorus, pl 4.0 2.3 - 4.5 mg/dL Blood 02/07/2025 1:05 PM CDT 02/07/2025 1:16 PM CDT Ilsa Yarbrough [facility] M[facility] STAMPER LAB BLOOD ORDERABLES Fin al Result Performing Organization Address City/[facility]/ZIP Co de Phone Number [facility] [address] [facility] [place] [address] * Magnesium (02/07/2025 1:05 PM CDT) [facility] Magnesium 2.4 1.4 - 2.5 mg/dL Blood 02/07/2025 1:05 PM CDT 02/07/2025 1:16 PM CDT Ilsa Yarbrough [facility] LAB BLOOD ORDERABLES Fin al Result Performing Organization Address [facility] de Phone Number [facility] [address] [facility] [place] [address] * (ABNORMAL) Basic metabolic panel (02/07/2025 1:05 PM CDT) [facility] Sodium 139 135 - 145 mmol/L Potassium, pl 4.1 3.3 - 4.9 mmol/L [facility] Chloride 106 97 - 110 mmol/L [facility] CO2 20(L) 22 - 32 mmol/L [facility] Anion gap 13 2 - 15 mmol/L [facility] BUN 43(H) 6 - 25 mg/dL [facility] Creatinine 1.62(H) 0.80 - 1.30 mg/dL [facility] Glucose 130 70 - 199 mg/dL [facility] Comment: Interpretive Data Fasting glucose >/= 126 [...] 2022. Calcium 8.8 8.5 - 10.3 mg/dL [facility] Blood 02/07/2025 1:05 PM CDT 02/07/2025 1:16 PM CDT Ilsa Chu MACHINE STAMPER LAB BLOOD ORDERABLES Fin al Result [facility] [address] Department [place] [address] * TRANSCATHETER TRICUSPID VALVE IMPLANT (02/07/2025 12:47 PM CDT) Anatomical Region Laterality Modality X-Ray Angiograph y Narrative 02/07/2025 11:53 AM CDT Please see OpNote for result. us Manny Villeda MD CV CARDIAC CATH PROCEDUR ES Final Result * TRANSCATHETER TRICUSPID VALVE IMPLANT (02/07/2025 12:47 PM CDT) Anatomical Region Laterality Modality X-Ray Angiograph y Narrative 02/07/2025 12:55 PM CDT Images from the original result were not included. [facility] Cardiology [address] [facility], [address], [address] Transcatheter Tricuspid Valve Replacement Procedure Report 74 y.o. year old male with severe nonrheumatic tricuspid regurgitation referred for transcatheter tricuspid valve replacement Attending physicians: Manny Villeda MD, Edward Mckeon MD, Bhavesh Washington MD Access:8F Right Femoral Vein ->28F Catheter: Agilis , Evoque Injection: None Closure:Perclose Anticoagulation: [id number] Heparin Air Kerma:382 mGy Fluoro time:10.9 min [...] and ultrasound guidance. We placed an 8 Mauritanian sheath in the Right Femoral Vein. This sheath was pre closed with 2 perpendicular Perclose devices. We then advanced an Agilis catheter from the vein and advanced a safari wire to the right ventricular apex. We then upsized the right femoral venous sheath to a 28 Mauritanian sheath using serial dilatation. We then advanced [...] * HARISH Guidance During [place] [id number] (02/07/2025 12:42 PM CDT) Anatomical Region Laterality Modality Ultrasound 02/07/2025 11:1 7 AM CDT Narrative 02/07/2025 2:13 PM CDT [facility] [address] [place] [address] TRANSESOPHAGEAL ECHOCARDIOGRAM Patient Name: KAMRON CHAUDHARY : 1950 (74y 9m) Gender: M Study Date: 02/07/2025 11:17:40 AM Ht(Inch): 70 Wt(Lb): 275.6 BSA: 2.48 Electrical Tryout Person: MIRANDA Location: [address] Order Provider: EDWARD MCKEON BMI: 39.54 BP: [...] Procedure Note Bhavesh Washington MD - 02/07/[address] [address] TRANSESOPHAGEAL ECHOCARDIOGRAM Patient Name: KAMRON CHAUDHARY : 1950 (74y 9m) Gender: M Study Date: 02/07/2025 11:17:40 AM Ht(Inch): 70 Wt(Lb): 275.6 BSA: 2.48 Electrical Tryout Person: MIRANDA Location: [id number] Order Provider: EDWARD MCKEON BMI: 39.54 BP: [...] 359(H) 87 - 138 sec POC Performer [id number] [facility] Blood 02/07/2025 11:5 5 AM CDT 02/07/2025 11:55 AM CDT us Edward Mckeon MD LAB BLOOD ORDERABLES Final Resul t [facility] [address] Department [place] [address] * [place] AN ELECTIVE ENDOTRACHEAL AIRWAY, [place] AN PROCEDURE PLACEHOLDER (02/07/2025 11:28 AM CDT) [...] ABO Rh A Negative Angelina, indirect Negative [facility] Blood 02/07/2025 9:08 AM CDT 02/07/2025 9:23 AM CDT us Edward Mckeon MD LAB BLOOD BANK TEST ORDERABLES F inal Result [facility] [address] Department [place] [address] * Prepare RBC: 2 Units (02/07/2025 8:51 AM CDT) Product code [id number] [facility] Unit Number [id number] 6-V [facility] Product Blood Type ANEG [facility] Dispense Status RETURNED [facility] Product code [id number] Unit Number [id number] 1-* [facility] Product Blood Type ANEG [facility] Dispense Status RETURNED [facility] Blood 02/07/2025 8:51 AM CDT Narrative [facility] - 02/11/2025 7:51 AM CDT Specify Procedure:->TTVI/TTVR Are special requirements needed? (All products are leukoreduced and CMV- safe)- >No Date required:-[id number] LRRBC # of [id number] Reasons:-Hold for procedure (specify procedure)} us Manny Villeda MD BLOOD BANK PRODUCT ORDER NEY Final Result Performing Organization Address City/[facility]/ZIP Co de Phone Number [facility] [address] Department [place] [address] * (ABNORMAL) Blood smear review (01/31/2025 2:56 PM CDT) RBC morphology Present(A) Anisocytosis Slight(A) [facility] Elliptocytes 3-7/HPF(A) [facility] Platelet estimate Decreased(A ) [facility] Morphology scrn See Comment [facility] Comment:PLT: Platelet morpho logy normal Automated count confirmed by smear review Blood 01/31/2025 2:56 PM CDT 01/31/2025 3:45 PM CDT Linnea Morris NP LAB BLOOD ORDERABLES Final Resul t Performing Organization Address [facility] Co de Phone Number [facility] [address] Department [place] [address] * (ABNORMAL) eGFR (01/31/2025 2:56 PM CDT) eGFR 40(L) >=60 mL/min/1. 73 m2 Comment: [...] NP LAB BLOOD ORDERABLES Final Resul t [facility] [address] Department [place] [address] * (ABNORMAL) Differential, auto (01/31/2025 2:56 PM CDT) Neutrophil abs 0.85(L) 1.50 - 6.50 K/cumm Imm gran abs 0.01 0.00 - 0.10 K/cumm [facility] Lymphocyte abs 0.37(L) 0.80 - 3.30 K/cumm [facility] Monocyte abs 0.12(L) 0.20 - 0.80 K/cumm [facility] Eosinophil abs 0.06 0.00 - 0.50 K/cumm [facility] Basophil abs 0.01 0.00 - 0.10 K/cumm [facility] Neutrophil pct 59.8 % [facility] Comment: Interpretive Data Percent cell count reference ranges are not reported, since discordance with absolute values may lead to misinterpretation of CBC data. Current Interpretive Data was last revised on 2017. Imm gran pct 0.7 % [facility] Comment: Interpretive Data Percent cell count reference ranges are not reported, since discordance with absolute values may lead to misinterpretation of CBC data. Current Interpretive Data was last revised on 2017. Lymphocyte pct 26.1 % [facility] Comment: Interpretive Data Percent cell count reference ranges are not reported, since discordance with absolute values may lead to misinterpretation of CBC data. Current Interpretive Data was last revised on 2017. Monocyte pct 8.5 % [facility] Comment: Interpretive Data Percent cell count reference ranges are not reported, since discordance with absolute values may lead to misinterpretation of CBC data. Current Interpretive Data was last revised on 2017. Eosinophil pct 4.2 % [facility] Comment: Interpretive Data Percent cell count reference ranges are not reported, since discordance with absolute values may lead to misinterpretation of CBC data. Current Interpretive Data was last revised on 2017. Basophil pct 0.7 % [facility] Comment: Interpretive Data Percent cell count reference ranges are not reported, since discordance with absolute values may lead to misinterpretation of CBC data. Current Interpretive Data was last revised on 2017. Blood 01/31/2025 2:56 PM CDT 01/31/2025 3:45 PM CDT us Linnea Morris NP LAB BLOOD ORDERABLES Final Resul t [facility] [address] Department [place] [address] * (ABNORMAL) Pro B-type natriuretic peptide (01/31/2025 [...] ORDERABLES Final Resul t Performing Organization Address [facility] Co de Phone Number [facility] [address] Department [place] [address] * (ABNORMAL) CBC with auto differential (01/31/2025 2:56 PM CDT) WBC 1.42(L) 3.80 - 9.90 K/cumm Hgb 9.5(L) 13.0 - 17.5 g/dL [facility] Hct 31.1(L) 38.9 - 50.3 % [facility] Plt 92(L) 150 - 400 K/cumm [facility] MPV 9.9 9.1 - 12.3 fL [facility] RBC 3.48(L) 4.30 - 5.80 M/cumm [facility] MCV 89.4 81.3 - 96.4 fL [facility] MCH 27.3 27.1 - 33.3 pg [facility] MCHC 30.5(L) 32.3 - 35.7 g/dL [facility] RDW CV 18.4(H) 11.1 - 14.9 % [facility] RDW SD 59.9(H) 35.7 - 48.1 fL [facility] NRBC abs 0.00 0.00 - 0.01 K/cumm [facility] Blood 01/31/2025 2:56 PM CDT 01/31/2025 3:45 PM CDT Linnea Morris NP LAB BLOOD ORDERABLES Final Resul t Performing Organization Address [facility]/ZIP Co de Phone Number [facility] [address] Department [place] [address] * (ABNORMAL) Protime-INR (01/31/2025 2:56 PM CDT) [facility] PT 13.6(H) 9.7 - 13.0 sec INR 1.25(H) 0.90 - 1.20 [facility] Comment: Interpretive data Oral anticoagulant therapeutic ranges: Venous thromboembolism prophylaxis or treatment: 2.0-3.0 CARDIOLOGY Standard range: 2.0-3.0 High-intensity range: 2.5-3.5 Refer to indication-specific guidelines for appropriate target ranges for prosthetic heart valve replacement. Current interpretive data was last revised on 2019. Blood 01/31/2025 2:56 PM CDT 01/31/2025 3:45 PM CDT Linnea Morris NP LAB BLOOD ORDERABLES Final Resul t Performing Organization Address City/[facility]/ZIP Co de Phone Number [facility] [address] [place] [address] * Type and screen (01/31/2025 2:56 PM CDT) [facility] [place], indirect Negative ABO Rh A Negative [facility] Blood 01/31/2025 2:56 PM CDT 01/31/2025 3:55 PM CDT Narrative [facility] - 01/31/2025 4:42 PM CDT Has the patient had Daratumumab or Isatuximab in the past 6 months?->Unknown Linnea Morris NP LAB BLOOD BANK TEST ORDERABLES F inal Result [facility] [address] [place] [address] * (ABNORMAL) Comprehensive metabolic panel (01/31/2025 2:56 PM CDT) [facility] Sodium 138 135 - 145 mmol/L Potassium, pl 4.2 3.3 - 4.9 mmol/L [facility] Chloride 101 97 - 110 mmol/L [facility] CO2 23 22 - 32 mmol/L [facility] Anion gap 14 2 - 15 mmol/L [facility] BUN 38(H) 6 - 25 mg/dL [facility] Creatinine 1.74(H) 0.80 - 1.30 mg/dL [facility] Glucose 106 70 - 199 mg/dL [facility] Comment: Interpretive Data Fasting glucose >/= 126 [...] 2022. Calcium 8.9 8.5 - 10.3 mg/dL [facility] Bilirubin, total 0.5 0.1 - 1.2 mg/dL [facility] Protein, pl 7.3 6.5 - 8.5 g/dL [facility] Albumin 3.9 3.5 - 5.0 g/dL [facility] Alk phos 54 40 - 130 Units/L [facility] ALT 13 7 - 55 Units/L [facility] AST 18 10 - 50 Units/L [facility] Blood 01/31/2025 2:56 PM CDT 01/31/2025 3:45 PM CDT us Linnea Morris NP LAB BLOOD ORDERABLES Final Resul t [facility] [address] Department [place] [address] * RIGHT LEFT HEART CATHETERIZATION CORONARY GRAFT WITH WITHOUT LEFT VENTRICULOGRAPHY ANGIOGRAM (01/21/2025 2:58 PM CDT) Anatomical Region Laterality Modality X-Ray Angiograph y Narrative 01/21/2025 2:59 PM CDT Images from the original result were not included. [facility] Cardiology [id number], [address] Right and Left Heart Catheterization Procedure Report 74 y.o. year old male with severe tricuspid regurgitation referred for right and left heart catheterization. Attending Physician: Edward Mckeon MD Access:6F Right Femoral Artery and 6F Right Femoral Vein Catheter:SONDRA, FL4, FR4, and [place] Injection:Left Main Trunk, Right Coronary Artery, SVG, [...] and draped in sterile fashion. A 6 [place] sheath was inserted in the Right Femoral Artery using the modified Seldinger technique and ultrasound guidance. A 6 [place] sheath was inserted in the Right Femoral Vein using the modified Seldinger technique and ultrasound guidance. We then performed Right Heart Catheterization using the [place] catheter, measuring Sarah cardiac outputs. We then [...] replacement Edward Mckeon MD 01/21/2025 2:54 PM us Edward Mckeon MD CV CARDIAC CATH PROCEDURES Final Result * ECG 12 lead (01/21/2025 1:17 PM CDT) 01/21/2025 1:17 PM CDT Narrative [facility] - 01/21/2025 1:50 PM CDT Vent Rate: 79 bpm RR Interval: 752 msec [place] Interval: 0 msec QRS Duration: 107 msec QT Interval: 409 msec QTC Interval: 444 msec P-R-T [place]: 0 - 91 - -13 degrees IMPRESSION: [...] NP LAB BLOOD ORDERABLES Nathalie l Result [facility] [address] Department [place] [address] * (ABNORMAL) Differential, auto (01/03/2025 12:43 PM CDT) [facility] Neutrophil abs 1.00(L) 1.50 - 6.50 K/cumm Imm gran abs 0.00 0.00 - 0.10 K/cumm [facility] Lymphocyte abs 0.49(L) 0.80 - 3.30 K/cumm [facility] Monocyte abs 0.20 0.20 - 0.80 K/cumm [facility] Eosinophil abs 0.08 0.00 - 0.50 K/cumm [facility] Basophil abs 0.01 0.00 - 0.10 K/cumm [facility] Neutrophil pct 56.2 % [facility] Comment: Interpretive Data Percent cell count reference ranges are not reported, since discordance with absolute values may lead to misinterpretation of CBC data. Current Interpretive Data was last revised on 2017. Imm gran pct 0.0 % [facility] Comment: Interpretive Data Percent cell count reference ranges are not reported, since discordance with absolute values may lead to misinterpretation of CBC data. Current Interpretive Data was last revised on 2017. Lymphocyte pct 27.5 % [facility] Comment: Interpretive Data Percent cell count reference ranges are not reported, since discordance with absolute values may lead to misinterpretation of CBC data. Current Interpretive Data was last revised on 2017. Monocyte pct 11.2 % [facility] Comment: Interpretive Data Percent cell count reference ranges are not reported, since discordance with absolute values may lead to misinterpretation of CBC data. Current Interpretive Data was last revised on 2017. Eosinophil pct 4.5 % [facility] Comment: Interpretive Data Percent cell count reference ranges are not reported, since discordance with absolute values may lead to misinterpretation of CBC data. Current Interpretive Data was last revised on 2017. Basophil pct 0.6 % [facility] Comment: Interpretive Data Percent cell count reference ranges are not reported, since discordance with absolute values may lead to misinterpretation of CBC data. Current Interpretive Data was last revised on 2017. Blood 01/03/2025 12:4 3 PM CDT 01/03/2025 1:08 PM CDT us Rosanne Chaves NP LAB BLOOD ORDERABLES Nathalie l Result [facility] [address] Department [place] [address] * (ABNORMAL) Pro B-type natriuretic [...] CDT 01/03/2025 1:08 PM CDT Rosanne Chaves MACHINE STAMPER LAB BLOOD ORDERABLES Nathalie l Result [facility] [address] Department [place] [address] * (ABNORMAL) CBC with auto differential (01/03/2025 12:43 PM CDT) [facility] WBC 1.78(L) 3.80 - 9.90 K/cumm Hgb 9.1(L) 13.0 - 17.5 g/dL [facility] Hct 29.5(L) 38.9 - 50.3 % [facility] Plt 100(L) 150 - 400 K/cumm [facility] MPV 10.3 9.1 - 12.3 fL [facility] RBC 3.34(L) 4.30 - 5.80 M/cumm [facility] MCV 88.3 81.3 - 96.4 fL [facility] MCH 27.2 27.1 - 33.3 pg [facility] MCHC 30.8(L) 32.3 - 35.7 g/dL [facility] RDW CV 17.3(H) 11.1 - 14.9 % [facility] RDW SD 55.8(H) 35.7 - 48.1 fL [facility] NRBC abs 0.00 0.00 - 0.01 K/cumm [facility] Blood 01/03/2025 12:4 3 PM CDT 01/03/2025 1:08 PM CDT Rosanne Chaves NP LAB BLOOD ORDERABLES Nathalie l Result [facility] [address] Department [place] [address] * (ABNORMAL) Protime-INR (01/03/2025 12:43 PM CDT) PT 14.3(H) 9.7 - 13.0 sec INR 1.32(H) 0.90 - 1.20 [facility] Comment: Interpretive data Oral anticoagulant therapeutic ranges: Venous thromboembolism prophylaxis or treatment: 2.0-3.0 CARDIOLOGY Standard range: 2.0-3.0 High-intensity range: 2.5-3.5 Refer to indication-specific guidelines for appropriate target ranges for prosthetic heart valve replacement. Current interpretive data was last revised on 2019. Blood 01/03/2025 12:4 3 PM CDT 01/03/2025 1:08 PM CDT Rosanne Saundra Chaves MACHINE STAMPER LAB BLOOD ORDERABLES Nathalie l Result Performing Organization Address City/[facility]/ZIP Co de Phone Number [facility] [address] Department [place] [address] * Type and screen (01/03/2025 12:43 PM CDT) Pathologist [facility] [place], indirect Negative ABO Rh A Negative [facility] Blood 01/03/2025 12:4 3 PM CDT 01/03/2025 1:14 PM CDT Narrative [facility] - 01/03/2025 2:02 PM CDT Has the patient had Daratumumab or Isatuximab in the past 6 months?->Unknown Rosanne Chaves NP LAB BLOOD BANK TEST ORDER NEY Final Result Performing Organization Address [facility] Co de Phone Number [facility] [address] Department [place] [address] * (ABNORMAL) Comprehensive metabolic panel (01/03/2025 12:43 PM CDT) [facility] Sodium 137 135 - 145 mmol/L Potassium, pl 4.1 3.3 - 4.9 mmol/L [facility] Chloride 97 97 - 110 mmol/L [facility] CO2 29 22 - 32 mmol/L [facility] Anion gap 11 2 - 15 mmol/L [facility] BUN 43(H) 6 - 25 mg/dL [facility] Creatinine 1.90(H) 0.80 - 1.30 mg/dL [facility] Glucose 106 70 - 199 mg/dL [facility] Comment: Interpretive Data Fasting glucose >/= 126 [...] 2022. Calcium 8.9 8.5 - 10.3 mg/dL [facility] Bilirubin, total 0.5 0.1 - 1.2 mg/dL [facility] Protein, pl 7.3 6.5 - 8.5 g/dL [facility] Albumin 3.8 3.5 - 5.0 g/dL [facility] Alk phos 62 40 - 130 Units/L [facility] ALT 15 7 - 55 Units/L [facility] AST 24 10 - 50 Units/L [facility] Blood 01/03/2025 12:4 3 PM CDT 01/03/2025 1:08 PM CDT Result [facility] Rosanne Chaves NP LAB BLOOD ORDERABLES Nathalie l Result [facility] [address] Department [place] [address] * Cardiology Document Scan (12/27/2024 3:10 PM CDT) Anatomical Region Laterality Modality Other Marin Green MD CV CARDIAC SERVICES PROCEDURES F inal Result * Cardiology Document Scan (12/26/2024 3:08 PM CDT) Anatomical Region Laterality Modality Other Marly Benedict MD CV CARDIAC SERVICES PRO [...] Final Result from Last 3 Months Insurance [facility] MEDICARE MEDICARE MEDICARE [facility] MEDICARE [facility] Advance Directives For more information, please contact: [phone] * Full Code (Latest Code Status on File) Date Activated Date Inactivated Comments 02/07/2025 12:55 PM 02/11/2025 6:13 PM * Full Code Date Activated Date Inactivated Comments 2019 10:44 AM 04/27/2019 5:09 PM Care Teams Grab Operator Relationship Specialty Start Date End Date Leon Taylor MD [address] [place] [address] PCP - General 12/03/16 Bhavesh Valdez MD [address] [facility] [address] [facility] [address] [place] [address] Consulting Physician Cardiology 08/26/23 Nolan Herron MD [address] [facility] [address] [place] [address] Referring Physician Hematology 08/26/23 Edward Mckeon MD [address] [facility] [address] [place] [address] Referring Physician Cardiology 12/26/24 Linnea Morris NP [address] [facility] [address] [place] [address] Nurse Practitioner Cardiothoracic Surgery 01/25/25 Rosanne Chaevs NP [address] [facility] [address] [place] [address] Nurse Practitioner Cardiothoracic Surgery 02/11/25
[2025-03-22 11:24] LABS: Hematocrit 26.4 % (37.0-46.0); Hemoglobin 8.2 g/dL (12.4-15.3); Immature Platelet Fraction Pct 1.2 % (1.0-7.0); Mean Corpuscular HGB Conc 31.1 g/dL (32-36); Mean Corpuscular Hemoglobin 27.6 pg (27.0-31.0); Mean Corpuscular Volume 88.9 fL (78.0-102.0); Platelet Count Result 101 K/mm3 (150-420); Red Blood Count 2.97 M/mm3 (4.70-6.10); White Blood Count 2.1 K/mm3 (4.8-10.8)
[2025-03-22 12:20] LABS: Anion Gap 5 mmol/L (4-12); Blood Urea Nitrogen 50 mg/dL (9-20); Calcium 8.5 mg/dL (8.4-10.2); Carbon Dioxide 26 mmol/L (22-30); Chloride 103 mmol/L (98-107); Estimated Glomerular Filt Rate 42; Glucose 92 mg/dL (65-110); Osmolality Calculated 291 mOsm/kg (285-295); Potassium 5.2 mmol/L (3.4-5.0); Sodium 134 mmol/L (137-145)
[2025-03-22 12:28] LABS: Band Neutrophils Percent 0 % (0-6); Eosinophils Absolute Manual 0.08 K/mm3 (0.02-0.50); Eosinophils Percent Manual 4 % (1-6); Lymphocytes Absolute Manual 0.23 K/mm3 (1.1-4.5); Lymphocytes Percent Manual 11 % (18-44); Monocytes Absolute Manual 0.12 K/mm3 (0.1-0.90); Monocytes Percent Manual 6 % (3-9); Neutrophils Absolute Manual 1.65 K/mm3 (1.3-6.7); Neutrophils Percent Manual 79 % (46-73); Total Cells Counted 100
[2025-03-22 12:29] LABS: Anisocytosis 1+; Hypochromasia 2+; Poikilocytosis 2+; Schistocytes None Seen
== END 2025-03-22 10:54 | disposition home or self-care (01) ==
LOC: CHSLAB 10:54
PROVIDERS: PCP Family Medicine Adolescent Medicine; Visit Provider Internal Medicine Hematology & Oncology
DX: D64.9 Anemia, unspecified (principal)
CPT/HCPCS: 36415; 80048; 85025; 85055

== ENCOUNTER 2025-05-30 07:04 | Outpatient (RCR) | payer MEDICARE, SELFPAY | END 2025-07-31 23:59 | disposition home or self-care (01) | LOC: ANHWOC 07:04 | PROVIDERS: PCP Family Medicine Adolescent Medicine; Visit Provider Family Medicine Adolescent Medicine | DX: I87.8 Other specified disorders of veins (principal) | CPT/HCPCS: 99214; G0463 ==

== ENCOUNTER 2025-06-17 09:30 | Outpatient (RCR) | payer MEDICARE, SELFPAY ==
--- NOTE | 2025-03-22 10:47 | PCCPR ---
Pt noted to be a bit pale today. States he believes his color is more pale than usual. Endorses fatigue, I just feel wore out. VS Stable, resting B/P 128/57, afib on telemetry, no other atypical complaints, he does have SOB w/activity, however this is also a usual symptom for him. He has a history of anemia, and is a patient of Dr. Abena Herron, call placed to provider, new order for CBC/BMP to be faxed. Patient aware and agreeable. Order received and patient taken to outpatient registration.
== END 2025-06-17 16:17 | disposition home or self-care (01) ==
PROVIDERS: PCP Family Medicine Adolescent Medicine; Visit Provider Specialist
DX: Z95.2 Presence of prosthetic heart valve (principal)
CPT/HCPCS: 36415; 80048; 85025; 85055; 93798